=== PATIENT | male | born 1965 | race Caucasian/White ===

== ENCOUNTER → 2017-06-29 | Day surgery (SDC) | payer OTHER ==
[2017-06-16 11:54] VITALS: Ht 170.2 cm; Wt 122.7 kg
--- NOTE | 2017-06-22 13:51 | PAT Medication Instructions ---
Service Date Jun 22, 2017. Current Home Medication List Amphetamine-Dextroamphetamine (Amphetamine/Dextroampheta), 20 MG PO QAM Amphetamine-Dextroamphetamine 20MG (Adderall 20MG), 0.5-1 TAB PO QPM Azelastine Hcl (Astelin Nasal Marion), 1-2 SPRAYS NA QAM PRN for Seasonal Allergies Citalopram Hydrobromide (Celexa), 40 MG PO QAM Clonazepam (Klonopin), 3 TAB PO HS Fexofenadine Hcl (Leela Allergy), 1 TAB PO QAM Mometasone Furoate (Nasal) (Mometasone Furoate), 1 SPRAY SANIYA QAM PRN for Seasonal Allergies Medication Instructions For Your Scheduled Surgery - Hold the following medications the morning of surgery: Amphetamine-Dextroamphetamine (Amphetamine/Dextroampheta), 20 MG PO QAM Fexofenadine Hcl (Leela Allergy), 1 TAB PO QAM Azelastine Hcl (Astelin Nasal Marion), 1-2 SPRAYS NA QAM PRN for Seasonal Allergies Mometasone Furoate (Nasal) (Nasonex), 1 SPRAY SANIYA QAM PRN for Seasonal Allergies - Take the following medications the morning of surgery with a sip of water OTHERWISE NOTHING TO EAT OR DRINK AFTER MIDNIGHT: Citalopram Hydrobromide (Celexa), 40 MG PO QAM Azelastine Hcl (Astelin Nasal Marion), 1-2 SPRAYS NA QAM PRN for Seasonal Allergies Mometasone Furoate (Nasal) (Mometasone Furoate), 1 SPRAY SANIYA QAM PRN for Seasonal Allergies - Take the following medications as scheduled the night before surgery: Amphetamine-Dextroamphetamine 20MG (Adderall 20MG), 0.5-1 TAB PO QPM Clonazepam (Klonopin), 3 TAB PO HS If you have any questions please call us at [phone] or [phone] or [phone]
[2017-06-22 14:44] LABS: BASO ABS # 0.08 K/uL (0-0.2); EOS % 2.3 %; EOS ABS # 0.18 K/uL (0-0.5); HEMATOCRIT 44.7 % (42-52); HEMOGLOBIN 15.2 g/dL (14.0-18.0); IG# 0.02 K/uL (0.00-0.02); LYMPH % 33.7 %; LYMPH ABS # 2.65 K/uL (1.2-3.4); MEAN CELL VOLUME 87.6 fL (80-100); MEAN CORPUSCULAR HEMOGLOBIN 29.8 pg (25-34); MEAN PLATELET VOLUME 10.8 fL (7.4-10.4); MONO % 6.4 %; NEUT % 56.3 %; NEUT ABS # 4.44 K/uL (1.4-6.5); PLATELET COUNT 263 K/uL (130-400); RED CELL DISTRIBUTION WIDTH CV 14.4 % (11.5-14.5); RED CELL DISTRIBUTION WIDTH SD 46.3 fL (36.4-46.3); WHITE BLOOD COUNT 7.87 K/uL (4.8-10.8)
[2017-06-22 14:52] LABS: CALCIUM 9.1 mg/dl (8.5-10.1); CREATININE 1.01 mg/dl (0.60-1.40); POTASSIUM 4.4 mmol/L (3.5-5.1)
[~2017-06-29] VITALS: Ht 170.2 cm; Wt 122.7 kg
[~2017-06-29] MED LIST: AMPH10CA9 PO; AMPH20TA2 PO; ASTN; ATROPINE SULFATE 0.1 MG/ML 5ML SYR IV PRN; BUPIVACAINE/EPINEPHRINE 0.25% 1:200,000 30 ML VIAL ONE; CEFAZOLIN 3000MG IV PUSH 15 ML IV SCH; CITA40TA12 PO; CLON1TAB3 PO; DEXAMETHASONE SOD INJ 4 MG/ML VIAL ONE; EpHEDrine SULFATE INJ 50 MG/ML AMP IV PRN; EpHEDrine SULFATE INJ 50 MG/ML AMP ONE; EpINEphrine INJ 1MG/ML AMP 1 MG/ML AMP ONE; FENTANYL CITRATE INJ 50 MCG/1 ML 2 ML VIAL IV PRN; FENTANYL CITRATE INJ 50 MCG/1 ML 2 ML VIAL ONE; FEXO1TAB49 PO; GLYCOPYRROLATE INJ 0.2 MG/ML VIAL ONE; LACTATED RINGER'S 1000ML 1,000 ML IV SCH; LIDOCAINE HCL 2% 2 ML VIAL (20MG/ML) ONE; MIDAZOLAM HCL 1 MG/ML 2ML VIAL ONE; MOME6000 NAE; NEOSTIGMINE METHYLSULFATE 5 MG/5 ML SYR ONE; ONDANSETRON INJ 2 MG/ML 2 ML VIAL IV PRN; ONDANSETRON INJ 2 MG/ML 2 ML VIAL ONE; OXYC-57 PO; OXYCODONE/ACETAMINOPHEN 5-325 TAB PO PRN; PHENYLEPHRINE HCL INJ 10 MG/ML VIAL ONE; PROPOFOL IV EMULSION 10 MG/ML 20 ML VIAL IV ONE; ROCURONIUM BROMIDE 10 MG/ML 5 ML VIAL IV ONE; ROPIVACAINE 0.5% 5 MG/ML 30 ML VIAL ONE; SODIUM CHLORIDE 0.9% 1000ML 1,000 ML IV SCH; SUCCINYLCHOLINE CHLORIDE 20 MG/ML 10 ML VIAL IV ONE
--- NOTE | 2017-06-29 06:47 | History & Physical Bridge - SC ---
H&P Re-Evaluation Bridge Note: I have examined the patient, reviewed the History & Physical and in the interval since the performance of the History & Physical I have noted the following changes of clinical significance: No changes noted
--- NOTE | 2017-06-29 08:43 | [facility] Post Operative Brief Note ---
Immediate Operative Summary Operative Date Jun 29, 2017. Pre-Operative Diagnosis Left Shoulder Pain and Impingement Post-Operative Diagnosis Same Procedure(s) Performed Left Shoulder Arthroscopy With Subacromial Decompression Surgeon Dr. Bob Bernard Border Guard Surgeon(s) Ed Mason PA-C Estimated Blood Loss 5 ml Findings Consistent with Post-Op Diagnosis Specimens None Anesthesia Type General Regional Complication(s) none Disposition Disposition: Recovery Room / PACU
--- NOTE | 2017-06-29 08:51 | Discharge Instructions-SurgCtr ---
Discharge Instructions Date of Service Jun 29, 2017. Visit Reason for Visit: Left Shoulder Impingement, Pain Discharge Discharge Diagnosis / Problem: SAME ABOVE Discharge Goals Goal(s): Decrease discomfort, Improve function Activity Recommendations Activity Limitations: as noted below Lifting Limitations: until after follow-up appointment Shower/Bathe: tomorrow Anesthesia . Post Anesthesia Instructions: If you have had General Anesthesia or IV Sedation: * Do not drive today. * Resume driving when surgeon permits. * Do not make important decisions or sign legal documents today. * Call surgeon for: 1. Temperature elevations greater than 101 degrees F. 2. Uncontrollable pain. 3. Excessive bleeding. 4. Persistent nausea and vomiting. 5. Medication intolerance (nausea, vomiting or rash). * For nausea and vomiting use only clear liquids such as: tea, soda, bouillon until nausea subsides, then gradually increase diet as tolerated. * If you have any concerns or questions, call your surgeon's office. If physician is unavailable and it is an emergency, call 911 or go to the nearest emergency room. . Instructions / Follow-Up Instructions / Follow-Up MEDICATIONS: * Resume previous medications unless instructed otherwise by your surgeon. * Always take pain medication on a full stomach or with food to avoid upset stomach. * Do not drink alcohol or drive while taking narcotics. * Ibuprofen or Tylenol may be taken if narcotic not needed. SPECIAL CARE INSTRUCTIONS: __ None _X_ Keep extremity elevated and iced x 48 hours; apply ice 20-30 minutes 8-10 times/day. May remove at night. _X_ Sling (WEAR FOR COMFORT ONLY) __24 hrs/day __ Remove at night __ Shoulder Immobilizer __ 24 hrs/day __ Remove at night _X_ Dressing __ Maintain until seen in office, may shower with plastic over site _X_ Remove dressings in 24-48 hours and then may shower _X_ Cover incisions with band-aids after showering _X_ Do not remove steri-strips Call physician if chills or temperature rises above 102 degrees or pain unrelieved by prescribed pain medications at . . Diet Recommendations Home Diet: no limitations Fluid Restriction: None Procedures Procedures Performed: Left Shoulder Arthroscopy With Subacromial Decompression Pending Studies Studies pending at discharge: no Work Instructions Return To Work: after follow-up Lifting Limitations: NO LIFTING MORE THAN 5 POUNDS Medical Emergencies . Who to Call and When: Medical Emergencies: If at any time you feel your situation is an emergency, please call 911 immediately. . Non-Emergent Contact Non-Emergency issues call your: Primary Care Provider Call Non-Emergent contact if: you have a fever, temperature is above 101.5 . . "Provider Documentation" section prepared by Russell Mason. .
--- NOTE | 2017-06-29 09:01 | OPERATIVE REPORT ---
DATE OF OPERATION: 06/29/2017 PREOPERATIVE DIAGNOSES: Severe external impingement and biceps tendinopathy of the left shoulder. POSTOPERATIVE DIAGNOSIS: Same. PROCEDURES: Left shoulder diagnostic arthroscopy with limited debridement, acromioplasty, open subpectoral biceps tenodesis and distal clavicle resection to include coplanning the undersurface of the clavicle. SURGEON: Dr. Akshat Bernard. WHITE SUGAR SUPERVISOR: Александр Mason PA-C, whose assistance was necessary for positioning the arm and helping with instrumentation. ANESTHESIA: General with a left interscalene nerve block. COMPLICATIONS: None. CONDITION: Stable to PACU. INDICATIONS: Eren is a pleasant 52-year-old male who underwent a right shoulder arthroscopy 12 years ago for decompression. Unfortunately, he was having similar symptoms in his left shoulder. MRI and clinical examination were diagnostic for severe external impingement and biceps tendinopathy. After failing conservative treatment, he elected to undergo arthroscopy. DESCRIPTION OF PROCEDURE: On 06/29/2017, he arrived at [facility] for the above procedure. He was seen in the preoperative holding area and the operative extremity was identified and signed. He was given preoperative antibiotics and a left interscalene nerve block. He was taken back to the operating room, laid on the table in supine position and put under general anesthesia. He was then put into the beachchair position. The left shoulder was prepped and draped in sterile fashion. Time-out was done and the patient's operative extremity was properly identified. A scope was introduced into the posterior portal. Diagnostic arthroscopy showed no cartilage damage to the humeral head or the glenoid. There was significant fraying of the anterior and superior labrum. The biceps tendon was very frayed. The supraspinatus, infraspinatus, teres minor and subscapularis were all checked and intact. An anterior portal was made. A shaver was used to do a limited debridement of the intraarticular structures and the biceps tendon was arthroscopically tenotomized for later tenodesis. The scope was then put into the subacromial space. A lateral portal was made. A shaver was used to do a complete subacromial and subdeltoid bursectomy. An ablator was used to tease the coracoacromial ligament off the undersurface of the acromion and a 5-0 vivek was used to complete an acromioplasty of a Bigliani type 3 acromion. A shaver was used to remove any excess debris. The bursal side of the rotator cuff was examined extensively without evidence of tear. There was a very large osteophyte off the inferior aspect of the clavicle. It was impinging upon the supraspinatus outlet. A bur was used to remove the osteophytes open up the supraspinatus outlet. This completed the distal clavicle resection. Multiple pictures were taken. Arthroscopic instruments were then removed from the shoulder. Attention was turned to an open biceps tenodesis. A small incision was made over the inferior border of the pec major. Dissection was taken down through the fascia and the long head of the biceps tendon was delivered out of the wound. A 6.5-mm hole was drilled in the bicipital groove. The biceps tendon was then whipstitched with an Arthrex FiberLoop and an Arthrex biceps button was placed on the tails. The biceps button was then placed through the 6.5-mm hole and out the posterior cortex and flipped and a tension slide technique was used to deliver the tendon into the 6.5-mm hole. This gave good fixation. The tails were then tied with a knot pusher. The wound was then irrigated and closed with 3-0 Vicryl and running 3-0 Monocryl. Steri-strips were placed. Portal sites were closed with 3-0 nylon. He was then placed in a soft dressing and a regular arm sling. He was then extubated, transferred to a [facility] and taken to the postanesthesia care unit in stable condition. He tolerated the procedure well. I attest to the content of the Intraoperative Record and any orders documented therein. Any exception s are noted below.
[2017-06-29 09:44] VITALS: TEMP 36.4
--- NOTE | 2017-06-29 10:38 | Anesthesia Progress Nt - [facility] ---
Anesthesia Post Op Note Date & Time Jun 29, 2017 at 10:37 Vital Signs Pain Intensity: 5 Vital Signs Past 12 Hours Date Time Temp Pulse Resp B/P (MAP) Pulse Ox O2 Delivery O2 Flow Rate FiO2 06/29/17 09:44 36.4 72 20 126/80 (95) 96 Room Air 06/29/17 09:34 36.4 72 16 135/80 96 Room Air 06/29/17 09:27 77 16 06/29/17 09:27 76 16 95 06/29/17 09:26 137/94 06/29/17 09:22 82 22 95 06/29/17 09:22 82 22 06/29/17 09:21 149/89 06/29/17 09:17 71 15 99 06/29/17 09:17 71 15 06/29/17 09:16 147/84 06/29/17 09:12 71 13 06/29/17 09:12 72 13 97 06/29/17 09:11 145/99 06/29/17 09:07 73 16 06/29/17 09:07 73 16 98 06/29/17 09:06 149/94 06/29/17 09:04 73 13 98 06/29/17 09:04 73 13 06/29/17 09:01 149/105 06/29/17 08:59 75 12 06/29/17 08:59 75 12 97 06/29/17 08:56 138/101 06/29/17 08:54 76 18 06/29/17 08:54 76 18 97 06/29/17 08:52 153/103 06/29/17 08:49 36.4 81 16 150/103 (111) 97 Room Air 6 Mask 06/29/17 07:34 61 31 100 06/29/17 07:34 61 06/29/17 07:33 59 10 100 06/29/17 07:33 61 06/29/17 07:32 61 20 100 06/29/17 07:32 63 06/29/17 07:31 140/97 06/29/17 07:29 59 15 100 06/29/17 07:29 60 06/29/17 07:28 58 06/29/17 07:28 58 18 100 06/29/17 07:26 139/94 06/29/17 07:23 61 06/29/17 07:23 61 13 100 1/25/18 07:22 62 10 100 06/29/17 07:22 62 06/29/17 07:21 138/97 06/29/17 07:20 62 26 100 06/29/17 07:20 61 06/29/17 07:19 63 33 99 06/29/17 07:19 63 06/29/17 07:18 64 25 100 06/29/17 07:18 65 06/29/17 07:17 60 06/29/17 07:17 59 9 100 06/29/17 07:16 165/111 06/29/17 07:12 62 06/29/17 07:12 61 15 99 06/29/17 07:11 147/98 06/29/17 07:07 62 20 99 06/29/17 07:07 62 06/29/17 07:06 143/92 06/29/17 06:34 36.4 74 22 150/97 (114) 97 Room Air Notes Mental Status: alert / awake / arousable, participated in evaluation Pt Amnestic to Procedure: Yes Nausea / Vomiting: adequately controlled Pain: adequately controlled Airway Patency, RR, SpO2: stable & adequate BP & HR: stable & adequate Hydration State: stable & adequate Anesthetic Complications: no major complications apparent
[2017-06-29 10:41] VITALS: BP 151/93; PULSE 68; O2SAT 97
== END | disposition home or self-care (01) ==
LOC: X.SURG 06:23
PROVIDERS: ATTEND Orthopaedic Surgery
DX: M75.42 Impingement syndrome of left shoulder (principal); F32.9 Major depressive disorder, single episode, unspecified

== ENCOUNTER → 2017-12-26 | Outpatient (CLI) | payer OTHER ==
[~2017-12-26] VITALS: Ht 170.2 cm; Wt 114.0 kg
[~2017-12-26] MED LIST changes: -ATROPINE SULFATE 0.1 MG/ML 5ML SYR IV PRN; -BUPIVACAINE/EPINEPHRINE 0.25% 1:200,000 30 ML VIAL ONE; -CEFAZOLIN 3000MG IV PUSH 15 ML IV SCH; -CLON1TAB3 PO; +CLON1TAB5 PO; -DEXAMETHASONE SOD INJ 4 MG/ML VIAL ONE; -EpHEDrine SULFATE INJ 50 MG/ML AMP IV PRN; -EpHEDrine SULFATE INJ 50 MG/ML AMP ONE; -EpINEphrine INJ 1MG/ML AMP 1 MG/ML AMP ONE; -FENTANYL CITRATE INJ 50 MCG/1 ML 2 ML VIAL IV PRN; -FENTANYL CITRATE INJ 50 MCG/1 ML 2 ML VIAL ONE; -GLYCOPYRROLATE INJ 0.2 MG/ML VIAL ONE; -LACTATED RINGER'S 1000ML 1,000 ML IV SCH; -LIDOCAINE HCL 2% 2 ML VIAL (20MG/ML) ONE; -MIDAZOLAM HCL 1 MG/ML 2ML VIAL ONE; -NEOSTIGMINE METHYLSULFATE 5 MG/5 ML SYR ONE; -ONDANSETRON INJ 2 MG/ML 2 ML VIAL IV PRN; -ONDANSETRON INJ 2 MG/ML 2 ML VIAL ONE; -OXYCODONE/ACETAMINOPHEN 5-325 TAB PO PRN; -PHENYLEPHRINE HCL INJ 10 MG/ML VIAL ONE; -PROPOFOL IV EMULSION 10 MG/ML 20 ML VIAL IV ONE; -ROCURONIUM BROMIDE 10 MG/ML 5 ML VIAL IV ONE; -ROPIVACAINE 0.5% 5 MG/ML 30 ML VIAL ONE; -SODIUM CHLORIDE 0.9% 1000ML 1,000 ML IV SCH; -SUCCINYLCHOLINE CHLORIDE 20 MG/ML 10 ML VIAL IV ONE
[2017-12-26 15:30] VITALS: BP 157/101; PULSE 75; Ht 170.2 cm; Wt 114.0 kg
== END | disposition home or self-care (01) ==
LOC: C.NEUR 14:55
PROVIDERS: ATTEND Internal Medicine Pulmonary Disease
DX: R06.83 Snoring (principal); R53.83 Other fatigue; R40.0 Somnolence; J34.2 Deviated nasal septum; F51.4 Sleep terrors [night terrors]

== ENCOUNTER → 2018-01-15 | Outpatient (CLI) | payer OTHER ==
[~2018-01-15] MED LIST changes: +CLON1TAB10 PO; -CLON1TAB5 PO; -OXYC-57 PO
--- NOTE | 2018-01-16 06:33 | PAP/PSG TECHNICIAN REPORT ---
[facility] [employer] Analyst Polysomnogram Report Study name: None Report date: 01/16/2018 Study date: 01/15/2018 Referring Physician: Cooper Barbour M.D. Name: IRENE ALEXANDRA Reyes Interpreting Physician: Cooper Barbour M.D. Date of : 1965 [employer] Analyst: Millicent Swanson RPSGT. Sex: Male Age: 52 Study Type: PSG Weight: 251 lbs 19+ in Height: 52 years, Height 5' 7" Neck Circum: BMI: 39.31 Medications: FABI 180 MG, AMPHETAMINE-DEXTROAMPHETAMINE 20 MG, AZELASTINE 0.15% NASAL SOLN, CITALOPRAM 40 MG, CLONAZEPAM 1 MG, MOMETASONE 50 MCG/ACT Patient History 52 yr-old male here for a baseline study. He has a history of sleep terrors, movements during sleep, excessive daytime sleepiness, and has a need for naps. His [place] scale is 9. The test was started on room air. Additional EMG leads were added to his arms for the study. ETCO2 testing was not utilized during this study. Room 3 Parameters Monitored NPSG: E1-M2, E2-M1, Fp1-M2, Fp2-M1, F3-M2, F4-M2, F4-M1, C3-M2, C4-M2, C4-M1, O1-M2, O2-M2, O2-M1, T3-M2, T4-M1, P3-M2, P4-M1, CHIN1, CHIN2, HR, EKG, Legs, PFLOW, SNOR, FLOW, CFLOW, Tidal Volume, THOR, ABDO, SpO2, PLTH, CPRESS, ETCO2 Wave, ETCO2, pH Sleep Architecture Sleep Stages Time at Lights Off 10:06:48 PM STAGES Time (min.) TST (%) Time at Lights On 5:24:48 AM Wake 168.5 -- Total Recording Time (TRT) 438.00 min. N1 85.5 32 Total Sleep Period (TSP) 365.5 min. N2 161.5 60 Total Sleep Time (TST) 269.5min. N3 0.0 0 Awake Time 168.5 min. REM 22.5 8 Wake after Sleep Onset 96.0 min. Sleep Efficiency (SE) 62 % Sleep Onset Latency (JAIME) 72.5 min. Number of Stage 1 Shifts None Awakenings 27 Stage Changes 110 Number of REM periods 1 REM 22.5 8 REM Latency 212.5 min. NREM 247.0 92 Body Position Analysis Supine Right Left Side Prone Vertical Total Sleep Time (min.) 107.7 103.1 104.9 208.00 0.0 0.0 Total Sleep Time (%) 23% 38% 39% 77 0% N/A% Total Sleep Time REM (min.) 22.5 0.0 0.0 None 0.0 0.0 Total Sleep Time NREM (min.) 39.0 103.1 104.9 None 0.0 0.0 Intermittent Wake (min.) 46.2 46.4 75.9 None 0.0 0.0 Total Sleep Period (%) 22% None None None None None Arousals Myoclonus (PLM) * Events Count Index Events Count Index Spontaneous 47 10 Events Awake (PLMW) 169 60.2 Respiratory 16 4.2 Events Asleep w/ Arousal (PLMA) 26 5.8 PLM 25 6 Events Asleep w/o Arousal (PLMS) 217 48.3 Snoring 14 3 Total Asleep 243 54.1 Total 101 22 Total 412 56 Respiratory Analysis * CA OA MA CH H RERA Total Count 0 0 0 0 69 1 69 Index 0.0 0.0 0.0 0 15.4 0 15.6 Mean Duration 0.0 0.0 0.0 0.00 16.1 17.1 16.1 Longest Duration 0.0 0.0 0.0 0.00 0.0 17.1 28.8 Respiratory Event Summary Total Supine ~Supine Right Left Prone REM NREM Apneas Count 0 0 0 0 0 N/A 0 0 Index 0.0 0 0 0.0 0.0 N/A 0 0 Hypopneas (4% Desat) Count 69 25 44 21 23 N/A 6 63 Index 15.4 24.4 13 12.2 13.2 N/A 16.0 15.3 Apneas & All Hypopneas Count 69 25 44 21 23 N/A 6 63 Index 15.4 24 13 12 13 N/A 16.0 15.3 Respiratory Events (Inspector Fibrous Wallboard+All Hyp+RERA) Count 69 26 44 21 23 N/A 6 63 Index 15.6 25 13 12.2 13.2 N/A 16.0 15.5 Respiratory Related Arousal Count 16 26 9 2 7 N/A 0 19 Index 4.2 10 3 1 4 N/A 0 5 Snoring Analysis Supine Right Left Prone REM NREM Total Snore duration 28.8 min Snores count 236 577 674 N/A 90 1,397 1,487 Snore mean duration 1.2 Sec Snores index 230 336 386 N/A 240.0 339.4 331.1 TST with snoring (%) 10.7% Desaturation Event Summary: Minimum %SpO2 Event Count Mean/Min/Max Duration(sec.) Desaturation Index % Time In Bed > 90 105 19.5 / 6.8 / 60.0 15.3 96.9 86 - 90 3 12.0 / 8.8 / 17.5 13.6 3.1 81 - 85 0 N/A 0.0 0.0 76 - 80 0 N/A 0.0 0.0 71 - 75 0 N/A 0.0 0.0 66 - 70 0 N/A 0.0 0.0 61 - 65 0 N/A 0.0 0.0 56 - 60 0 N/A 0.0 0.0 51 - 55 0 N/A 0.0 0.0 < 50 0 N/A 0.0 0.0 Total REM NREM Awake <50% 0.0 min. 0.0 min. 0.0 min. 0.0 min. 51 - 60% 0.0 min. 0.0 min. 0.0 min. 0.0 min. 61 - 70% 0.0 min. 0.0 min. 0.0 min. 0.0 min. 71 - 80% 0.0 min. 0.0 min. 0.0 min. 0.0 min. 81 - 90% 13.3 min. 1.1 min. 10.1 min. 2.1 min. 91 - 100% 412.5 min. 21.4 min. 236.9 min. 154.2 min. Average 93 93 93 94 Minimum SpO2 86 87 86 87 Desaturation Event Index 14.4 24.0 18.9 6.8 # Desat. Events below 89% 18 1 15 2 Time(%) with Saturation below 89% 0.6 0.0 0.5 0.1 Time(min.) with Saturation below 89% 2.5 0.2 2.0 0.2 Heart Rate Analysis Min (bpm) Max (bpm) Average (bpm) Awake 47 96 67 NREM 47 87 61 REM 43 63 55 Overall 43 87 60 Supplemental O2 Values Minimum O2 level: None Value Start Time End Time [employer] Analyst Comments Mr. Sales slept in the right, left, and supine positions. No cardiac arrhythmias were noted. PLMs were noted. A few episodes of bruxism were noted. Snoring was noted and scored as a 3 on a scale of 1 through 5. (0=no snoring, 5=snoring loud enough to be heard through a closed door or down the martino way). He awoke to use the restroom two times during the night. Mr. Sales stated that he slept poorly. The final report will be interpreted and signed by a sleep physician. The completed physician report will then be placed in the patient medical record. Therapy (cm H2O) 0 TIB (min.) 438.0 TST (min.) 269.5 Sleep Onset (min.) 72.5 REM Onset From Sleep (min.) 212.5 Sleep Efficiency % 62 Wakefulness (%) 38 Wakefulness (min.) 168.5 NREM 1 (%) 32 NREM 1 (min.) 85.5 NREM 2 (%) 60 NREM 2 (min.) 161.5 NREM 3 (%) 0 NREM 3 (min.) 0.0 REM (%) 8 REM (min.) 22.5 # Arousals 101 Arousal Index 22 # Snore 1,487 Snore Index 331.1 AHI 15.4 AHI Supine 24 AHI Non-Supine 13 NREM AHI 15.3 REM AHI 16.0 RDI 15.6 # Obstructive Apnea 0 # Central Apnea 0 # Mixed Apnea 0 # Hypopneas 69 RERAs 1 Total Respiratory Events 71 Time Below SpO2 89% (min.) 2.2 Mean NREM SpO2 (%) 93 Mean REM SpO2 (%) 93 Mean Sleep SpO2 (%) 93 Min NREM SpO2 (%) 86 Min REM SpO2 (%) 87 Position Supine (min.) 107.7 Position Non-supine (min.) 208.0 LM Index Sleep 54.1 LM Index NREM 49.3 LM Index REM 106.7 Mean Heart Rate (bpm) 60 Min Heart Rate (bpm) 43
--- NOTE | 2018-01-20 17:06 | POLYSOMNOGRAPH REPORT ---
CLINICAL DATA: A 52-year-old male with BMI of 39.[address] Myers and myself for snoring, fatigue, daytime sleepiness, and history of sleep terrors. SLEEP ARCHITECTURE: Total sleep period was 65.5 minutes, total sleep time was 269.5 minutes divided between 247 minutes of non-REM sleep and 22.5 minutes of REM sleep. Sleep onset latency was delayed at 72.5 minutes. REM latency was delayed at 212.5 minutes. Sleep efficiency was reduced to 65%. Wake after sleep onset was 93 minutes. Sleep consisted of stage N1 32%, stage N2 is 60%, and REM 8%. AROUSAL DATA: 101 arousal recorded for an index of 22 per hour. PLM DATA: Severely elevated limb movements during sleep were noted during sleep. There were 243 limb movements during sleep were noted for an index of 54 with arousal index of 5.8 per hour. RESPIRATORY DATA: [id number] sleep apnea/hypopnea is documented. The AHI was 15.4. The RDI was 15.6. There were 69 hypopneic episodes with a mean duration of 16.1 seconds. There was 1 RERA, 17.1 seconds in duration. OXIMETRY DATA: Transient hypoxemia was seen. Oxygen brenton was 86% during non-REM sleep. Mean saturation was 93%. Time below 89% was 2.5 minutes. EKG: Heart rate ranged from 43-87 beats per minute. No arrhythmias were noted. FILLER BLOCK INSERTER REMOVER'S COMMENTS: The patient slept in right, left, and supine position. Several episodes of bruxism were noted. Snoring was moderate rated 3 on a scale of 1-5. IMPRESSION: 1. [id number] sleep apnea/hypopnea with an AHI of 15.4 and RDR of 15.6. 2. Severe periodic limb movement disorder. 3. Mild bruxism. RECOMMENDATIONS: The patient may benefit from repeat sleep study with CPAP. use of auto CPAP, or use of an oral appliance. Clinical correlation is needed. MAURICIO
== END | disposition home or self-care (01) ==
LOC: C.NEUR 21:00
PROVIDERS: ATTEND Internal Medicine Pulmonary Disease
DX: F51.4 Sleep terrors [night terrors] (principal); G47.33 Obstructive sleep apnea (adult) (pediatric); G47.61 Periodic limb movement disorder; G47.63 Sleep related bruxism

== ENCOUNTER 2020-10-02 15:01 | Inpatient (IN) ==
[2020-10-02 16:29] LABS: Appearance Urine Clear (Clear); Bilirubin Urine Negative (Negative); Blood Urine Negative (Negative); Color Urine Yellow; Glucose Urine UA Negative (Negative); Ketones Urine Negative (Negative); Leukocyte Esterase Urine Negative (Negative); Nitrite Urine Negative (Negative); Protein Urine Negative (Negative); Specific Gravity Urine 1.005 (1.000-1.030); Urobilinogen Urine Negative (Negative); pH Urine 6.5 (4.5-7.5)
[2020-10-02 16:53] LABS: Amphetamines+Metham, Urine Neg (Neg); Barbiturates, Urine Neg (Neg); Benzodiazepine, Urine Neg (Neg); Cocaine, Urine Neg (Neg); MDMA (Ecstacy), Urine Neg (Neg); Methadone, Urine Neg (Neg); Opiate, Urine Neg (Neg); Phencyclidine, Urine Neg (Neg)
[2020-10-02 16:59] LABS: Basophils # (auto) 0.06 K/uL (0-0.2); Basophils % (auto) 0.6 %; Eosinophils # (auto) 0.07 K/uL (0-0.5); Eosinophils % (auto) 0.7 %; Hematocrit (blood only) 47.2 % (42-52); Immature Granulocytes # (auto) 0.01 K/uL (0.00-0.02); Immature Granulocytes % (auto) 0.1 %; Lymphocytes # (auto) 1.76 K/uL (1.2-3.4); Lymphocytes % (auto) 18.5 %; Mean Corpuscular Hgb Conc 33.9 g/dL (32-36); Mean Corpuscular Volume 88.4 fL (80-100); Monocytes # (auto) 0.62 K/uL (0.11-0.59); Monocytes % (auto) 6.5 %; Neutrophils # (auto) 6.98 K/uL (1.4-6.5); Neutrophils % (auto) 73.6 %; Platelet Count 313 K/uL (130-400); RDW Coefficient of Variation 13.8 % (11.5-14.5); RDW Standard Deviation 44.8 fL (36.4-46.3); Red Blood Count 5.34 M/uL (4.7-6.1)
--- NOTE | 2020-10-02 17:06 | Emergency Department Note ---
History of Present Illness General Chief complaint: Mental Health Evaluation Stated complaint: MENTAL HEALTH EVAL Time Seen by Provider: 10/02/20 16:28 Source: patient Mode of arrival: ambulatory Limitations: no limitations History of Present Illness Provider complaint: Depression Maximum Pain Intensity: 3 This is a 55-year-old male who presents to the ED with a chief complaint of depression. The patient is a 201 commitment. The patient went to crisis to talk to them about his issues. He was told to come here for medical evaluation. The patient states that he lives alone. He has a history of ADHD. He states that over the past couple of months he has been feeling increasingly depressed because he is out of work. 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 He states that his future looks bleak. He has some bad knees and a bad shoulder and he is not able to find work. He states that he went on a strenuous walk recently with the hopes that it would cause him to have a medical emergency and he would . Denies any other complaints at this time. Home Medications Medication Instructions Recorded Confirmed Type azelastine 205.5 mcg (0.15 %) 2 spray INTNAS BID #30 ml 05/21/20 10/02/20 Rx nasal spray dextroamphetamine-amphetamine 20 40 mg PO DAILY tab 09/30/20 10/02/20 History mg tablet clonazepam 1 mg tablet 3 mg PO .COMPLEX #90 tab 10/02/20 10/02/20 Rx diphenhydramine HCl [Benadryl] 25 mg PO Q6H PRN 10/02/20 10/02/20 History famotidine 20 mg PO DAILY 10/02/20 10/02/20 History loratadine 10 mg PO DAILY 10/02/20 10/02/20 History oxymetazoline [Afrin drp INTRANASAL 10/02/20 History (oxymetazoline)] Allergies Allergy/AdvReac Type Severity Reaction Status Date / Time hydrocodone AdvReac Intermediate BECOMES Verified 06/29/17 07:16 MANIC naproxen AdvReac Mild RECTAL Verified 06/29/17 07:16 BLEEDING WITH EXTENDED USE Aleve CAPS Allergy Uncoded 01/04/19 15:36 Past Med/Surg History Medical History Cluster headache Medial meniscus tear Surgical History H/O arthroscopic knee surgery History of rotator cuff surgery Family History Mother Lymphoma Father Prostate cancer Grandmother (Maternal) Hypertension Other Diabetes Social History Smoking Status: Never smoker Preferred Language: Turkish marital status: Current Living Situation: Alone Feels Safe at Home: Yes Review of Systems A total of 10 systems reviewed and were otherwise negative Physical Exam Vital Signs Vital Signs - 24 hr 10/02/20 15:35 10/02/20 18:55 Pulse Rate 79 Respiratory Rate 20 Respiratory Effort / Characteristics Non-Labored Spontaneous Respiratory Depth Normal Respiratory Pattern Regular Blood Pressure 154/96 H Blood Pressure [Right Arm] 154/89 H Blood Pressure Mean 115 Blood Pressure Mean [Right Arm] 110 Pulse Oximetry 100 Oxygen Delivery Method Room Air Sepsis Recent Fever Within 48 Hours No Sepsis New/Unexplained Change in Mental Status No Sepsis Action Taken by Nursing No Action Required CONSTITUTIONAL/VITAL SIGNS: Reviewed / noted above. GENERAL: Non-toxic in appearance. INTEGUMENTARY: Warm, dry, and [place]. HEAD: Normocephalic. EYES: without scleral icterus or trauma. ENT/OROPHARYNX: clear and moist. LYMPHADENOPATHY/NECK: Is supple without lymphadenopathy or meningismus. RESPIRATORY: Lungs clear and equal. CARDIOVASCULAR: Regular rate and rhythm. GI/ABDOMEN: Soft and nontender. No organomegaly or pulsatile mass. No rebound or guarding. Normal bowel sounds. EXTREMITIES: Warm and well perfused. BACK: No CVA tenderness. NEUROLOGICAL: Intact without focal deficits. PSYCHIATRIC: Depressed affect. MUSCULOSKELETAL: Normally developed with good muscle tone. TRIAGE NURSING DOCUMENTATION REVIEWED. Medical Decision Making Differential Diagnosis Differential includes toxic ingestions, self-mutilation, suicidal ideation, suicide attempt, depression. Medical Records Attestation: I reviewed the patient's medical records. Home Medications Current Medication List: was personally reviewed by me Laboratory Data Attestation: I reviewed the patient's lab results. Result diagrams: 10/02/20 16:23 10/02/20 16:23 Lab Results 10/02/20 10/02/20 10/02/20 Range/Units 15:49 15:49 16:23 WBC 9.50 (4.8-10.8) K/uL RBC 5.34 (4.7-6.1) M/uL Hgb 16.0 (14.0-18.0) g/dL Hct 47.2 (42-52) % MCV 88.4 (80-100) fL MCH 30.0 (25-34) pg MCHC 33.9 (32-36) g/dL RDW Std Deviation 44.8 (36.4-46.3) fL RDW Coeff of Peter 13.8 (11.5-14.5) % Plt Count 313 (130-400) K/uL MPV 11.0 H (7.4-10.4) fL Immature Gran % (Auto) 0.1 % Neut % (Auto) 73.6 % Lymph % (Auto) 18.5 % Bacon % (Auto) 6.5 % Eos % (Auto) 0.7 % Baso % (Auto) 0.6 % Neut # (Auto) 6.98 H (1.4-6.5) K/uL Lymph # (Auto) 1.76 (1.2-3.4) K/uL Bacon # (Auto) 0.62 H (0.11-0.59) K/uL Eos # (Auto) 0.07 (0-0.5) K/uL Baso # (Auto) 0.06 (0-0.2) K/uL Immature Gran # (Auto) 0.01 (0.00-0.02) K/uL Sodium (136-145) mmol/L Potassium (3.5-5.1) mmol/L Chloride (98-107) mmol/L Carbon Dioxide (21-32) mmol/L Anion Gap (3-11) BUN (7-18) mg/dl Creatinine (0.6-1.4) mg/dl Est Cr Clr Drug Dosing ml/min Est GFR ( Amer) Est GFR (Non-Af Amer) BUN/Creatinine Ratio (10-20) Glucose (70-99) mg/dl Calcium (8.5-10.1) mg/dl Total Bilirubin (0.2-1) mg/dl AST (15-37) U/L ALT (12-78) U/L Alkaline Phosphatase (45-117) U/L Total Protein (6.4-8.2) gm/dl Albumin (3.4-5.0) gm/dl Globulin (2.5-4.0) gm/dl Albumin/Globulin Ratio (0.9-2) TSH (0.300-4.500) uIu/ml Urine Color Yellow Urine Appearance Clear (Clear) Urine pH 6.5 (4.5-7.5) Ur Specific Cochran 1.005 (1.000-1.030) Urine Protein Negative (Negative) Urine Glucose (UA) Negative (Negative) Urine Ketones Negative (Negative) Urine Blood Negative (Negative) Urine Nitrite Negative (Negative) Urine Bilirubin Negative (Negative) Urine Urobilinogen Negative (Negative) Ur Leukocyte Esterase Negative (Negative) Salicylates (2.8-20) mg/dl Urine Opiates Screen Neg (Neg) Ur Methadone, Qual Neg (Neg) Acetaminophen (10-30) ug/ml Urine Barbiturates Neg (Neg) Ur Phencyclidine (PCP) Neg (Neg) U Amphetamin/Meth Scrn Neg (Neg) MDMA (Ecstasy) Screen Neg (Neg) U Benzodiazepines Scrn Neg (Neg) Ur Cocaine Metabolite Neg (Neg) U Marijuana (THC) Screen Neg (Neg) Ethyl Alcohol mg/dL (0-3) mg/dl COVID-19 Eval Order SARS-CoV-2 (PCR) (Negative) Influenza Type A (PCR) (Neg) Influenza Type B (PCR) (Neg) RSV (RT-PCR) (Neg) 10/02/20 10/02/20 10/02/20 Range/Units 16:23 16:23 16:23 WBC (4.8-10.8) K/uL RBC (4.7-6.1) M/uL Hgb (14.0-18.0) g/dL Hct (42-52) % MCV (80-100) fL MCH (25-34) pg MCHC (32-36) g/dL RDW Std Deviation (36.4-46.3) fL RDW Coeff of Peter (11.5-14.5) % Plt Count (130-400) K/uL MPV (7.4-10.4) fL Immature Gran % (Auto) % Neut % (Auto) % Lymph % (Auto) % Bacon % (Auto) % Eos % (Auto) % Baso % (Auto) % Neut # (Auto) (1.4-6.5) K/uL Lymph # (Auto) (1.2-3.4) K/uL Bacon # (Auto) (0.11-0.59) K/uL Eos # (Auto) (0-0.5) K/uL Baso # (Auto) (0-0.2) K/uL Immature Gran # (Auto) (0.00-0.02) K/uL Sodium 138 (136-145) mmol/L Potassium 4.2 (3.5-5.1) mmol/L Chloride 106 (98-107) mmol/L Carbon Dioxide 27 (21-32) mmol/L Anion Gap 5.0 (3-11) BUN 7 (7-18) mg/dl Creatinine 1.04 (0.6-1.4) mg/dl Est Cr Clr Drug Dosing 89.3 ml/min Est GFR ( Amer) 91.9 Est GFR (Non-Af Amer) 79.3 BUN/Creatinine Ratio 6.9 L (10-20) Glucose 85 (70-99) mg/dl Calcium 9.9 (8.5-10.1) mg/dl Total Bilirubin 0.8 (0.2-1) mg/dl AST 21 (15-37) U/L ALT 39 (12-78) U/L Alkaline Phosphatase 94 (45-117) U/L Total Protein 8.3 H (6.4-8.2) gm/dl Albumin 4.1 (3.4-5.0) gm/dl Globulin 4.2 H (2.5-4.0) gm/dl Albumin/Globulin Ratio 1.0 (0.9-2) TSH 1.030 (0.300-4.500) uIu/ml Urine Color Urine Appearance (Clear) Urine pH (4.5-7.5) Ur Specific Cochran (1.000-1.030) Urine Protein (Negative) Urine Glucose (UA) (Negative) Urine Ketones (Negative) Urine Blood (Negative) Urine Nitrite (Negative) Urine Bilirubin (Negative) Urine Urobilinogen (Negative) Ur Leukocyte Esterase (Negative) Salicylates < 1.7 L (2.8-20) mg/dl Urine Opiates Screen (Neg) Ur Methadone, Qual (Neg) Acetaminophen < 2 L (10-30) ug/ml Urine Barbiturates (Neg) Ur Phencyclidine (PCP) (Neg) U Amphetamin/Meth Scrn (Neg) MDMA (Ecstasy) Screen (Neg) U Benzodiazepines Scrn (Neg) Ur Cocaine Metabolite (Neg) U Marijuana (THC) Screen (Neg) Ethyl Alcohol mg/dL < 3.0 (0-3) mg/dl COVID-19 Eval Order SARS-CoV-2 (PCR) (Negative) Influenza Type A (PCR) (Neg) Influenza Type B (PCR) (Neg) RSV (RT-PCR) (Neg) 10/02/20 10/02/20 Range/Units 18:01 18:01 WBC (4.8-10.8) K/uL RBC (4.7-6.1) M/uL Hgb (14.0-18.0) g/dL Hct (42-52) % MCV (80-100) fL MCH (25-34) pg MCHC (32-36) g/dL RDW Std Deviation (36.4-46.3) fL RDW Coeff of Peter (11.5-14.5) % Plt Count (130-400) K/uL MPV (7.4-10.4) fL Immature Gran % (Auto) % Neut % (Auto) % Lymph % (Auto) % Bacon % (Auto) % Eos % (Auto) % Baso % (Auto) % Neut # (Auto) (1.4-6.5) K/uL Lymph # (Auto) (1.2-3.4) K/uL Bacon # (Auto) (0.11-0.59) K/uL Eos # (Auto) (0-0.5) K/uL Baso # (Auto) (0-0.2) K/uL Immature Gran # (Auto) (0.00-0.02) K/uL Sodium (136-145) mmol/L Potassium (3.5-5.1) mmol/L Chloride (98-107) mmol/L Carbon Dioxide (21-32) mmol/L Anion Gap (3-11) BUN (7-18) mg/dl Creatinine (0.6-1.4) mg/dl Est Cr Clr Drug Dosing ml/min Est GFR ( Amer) Est GFR (Non-Af Amer) BUN/Creatinine Ratio (10-20) Glucose (70-99) mg/dl Calcium (8.5-10.1) mg/dl Total Bilirubin (0.2-1) mg/dl AST (15-37) U/L ALT (12-78) U/L Alkaline Phosphatase (45-117) U/L Total Protein (6.4-8.2) gm/dl Albumin (3.4-5.0) gm/dl Globulin (2.5-4.0) gm/dl Albumin/Globulin Ratio (0.9-2) TSH (0.300-4.500) uIu/ml Urine Color Urine Appearance (Clear) Urine pH (4.5-7.5) Ur Specific Cochran (1.000-1.030) Urine Protein (Negative) Urine Glucose (UA) (Negative) Urine Ketones (Negative) Urine Blood (Negative) Urine Nitrite (Negative) Urine Bilirubin (Negative) Urine Urobilinogen (Negative) Ur Leukocyte Esterase (Negative) Salicylates (2.8-20) mg/dl Urine Opiates Screen (Neg) Ur Methadone, Qual (Neg) Acetaminophen (10-30) ug/ml Urine Barbiturates (Neg) Ur Phencyclidine (PCP) (Neg) U Amphetamin/Meth Scrn (Neg) MDMA (Ecstasy) Screen (Neg) U Benzodiazepines Scrn (Neg) Ur Cocaine Metabolite (Neg) U Marijuana (THC) Screen (Neg) Ethyl Alcohol mg/dL (0-3) mg/dl COVID-19 Eval Order [facility] at [facility] SARS-CoV-2 (PCR) NEGATIVE (Negative) Influenza Type A (PCR) Negative (Neg) Influenza Type B (PCR) Negative (Neg) RSV (RT-PCR) Negative (Neg) MDM Narrative Patient presents as above for depression. His vital signs are normal. His physical exam was unremarkable. Lab work as noted above. He is medically cleared. He was accepted at [facility]. Impression & Plan Depression Discharge Plan Visit Data Chief Complaint: Mental Health Evaluation Stated Complaint: MENTAL HEALTH EVAL ED Provider: Luis Felipe [place] Discharge Problem: Depression Patient Disposition: Transfer Behavioral Health Fac Forms Stand Alone Forms: My [facility], Suicide Prevention Resources Prescriptions Prescriptions: No Action azelastine 0.15 % (205.5 mcg) spray,non-aerosol 2 spray INTNAS BID Qty: 30 RF: 3 clonazepam 1 mg tablet 3 mg PO .COMPLEX Qty: 90 RF: 0 dextroamphetamine-amphetamine 20 mg tablet 40 mg PO DAILY RF: 0 famotidine 20 mg Tablet 20 mg PO DAILY RF: 0 diphenhydramine HCl [Benadryl] 25 mg Capsule 25 mg PO Q6H PRN (Reason: Allergy Symptoms) RF: 0 loratadine 10 mg Tablet 10 mg PO DAILY RF: 0 Afrin (oxymetazoline) 0.05 % Drops INTRANASAL RF: 0 Referrals Referrals: Pro,Dayron Zamora MD [Primary Care Provider] -
[2020-10-02 17:19] LABS: Albumin Level 4.1 gm/dl (3.4-5.0); BUN Creatinine Ratio 6.9 (10-20); Calcium 9.9 mg/dl (8.5-10.1); Creatinine Clr Calc Pharmacy 89.3 ml/min; Est GFR (African American) 91.9; Est GFR (Non-African American) 79.3; Potassium 4.2 mmol/L (3.5-5.1)
[2020-10-02 17:23] LABS: Acetaminophen < 2 ug/ml (10-30); Salicylate < 1.7 mg/dl (2.8-20)
[2020-10-02 17:30] LABS: Bilirubin,Total 0.8 mg/dl (0.2-1); Globulin 4.2 gm/dl (2.5-4.0); Thyroid Stimulating Hormone 1.03 uIu/ml (0.300-4.500); Total Protein 8.3 gm/dl (6.4-8.2)
[2020-10-02 18:50] LABS: Influenza A virus by PCR Negative (Neg); Influenza B virus by PCR Negative (Neg); RSV by PCR Negative (Neg); SARS CoV2 RNA(COVID-19) InHosp NEGATIVE (Negative)
[2020-10-02] MEDS ORDERED: SODIUM CHLORIDE 0.65% NA SOLN 45 ML (OCEAN) PRN (19:43)
[2020-10-02] MEDS ORDERED: hydrOXYzine HCl 25 MG TAB PO PRN ×2 (19:43)
[2020-10-02] MEDS ORDERED: MAGNESIUM HYDROXIDE SUSP 30 ML UDC PO PRN (19:43)
[2020-10-02] MEDS ORDERED: BISMUTH SUBSALICYLATE LIQD 236 ML PO PRN (19:43)
[2020-10-02] MEDS ORDERED: ALUMINUM/MAGNESIUM SUSP 30 ML UDC PO PRN (19:43)
[2020-10-02] MEDS: clonazePAM 1 MG TAB PO SCH (21:46)
[2020-10-02] MEDS: ACETAMINOPHEN 325 MG TAB PO PRN (21:46)
[2020-10-03] MEDS: ACETAMINOPHEN 325 MG TAB PO PRN (11:22)
[2020-10-03] MEDS: LORATADINE 10 MG TAB PO SCH (12:32)
[2020-10-03] MEDS: FAMOTIDINE 20 MG TAB PO SCH (12:32)
--- NOTE | 2020-10-03 15:30 | History & Physical ---
Date of Service October 03, 2020 Impression / Recommendations Impression 55 yo male with a history of at least 1 hypomanic episode (patient states medication induced), family history of bipolar illness and prior treatment for ADHD/depression/OCD (mainly obsessions around sinuses during mood episodes vs OCPD) presented a few days after a [place] gesture [place] 40 mg Adder[place]. 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 (1) Depression: The patient was admitted to the [facility] ([facility] mental [facility] unit) on q15 min checks (behavioral with suicide precautions) for safety. The patient will participate in group, recreational, and milieu therapies and will be offered additional individual and family sessions as clinically appropriate. Initially discussed trial of Wellbutrin or Prozac given presenting symptoms, prior to discussion with brother and hx of hypomanic episode. Patient wanted family to weigh in and this was unable to be addressed on first phone call as brother's flight was taking off. Reviewed with patient that I do not plan to resume Adderall immediately given involvement in his attempt and weight loss. Reviewed that current OCD symptoms seems more likely related to somatic preoccupation/OCPD and will consider mood stabilizer options. He cannot recall past meds. Depression Type: unspecified Qualified Code(s): F32.9 - Major depressive disorder, single episode, unspecified (2) Allergic rhinitis: order home meds, will not add steroids at this time due to mood issues. 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 (4) Weight loss, unintentional: Brother is requesting additional work up for weight loss, Head CT, LP. Reviewed that will order some additional labs and a likely a CXR given mold exposure reported but currently no acute indication for head imaging/neuro consult. Consider as outpatient. Inventory Assets Strengths: intelligent, local family Needs: resume outpatient services Risk Factors Assessment Male: Yes : Yes Do You Have Access To A Gun?: No Mental Health Diagnoses: Yes Substance Use Disorders: No Previous Attempt; Didn't Tell Anyone: Yes (this visit) Protective Factors Assessment : No Responsible for Young Children: No Employed: No Supportive Family: Yes Psychiatric History Identifying Data ALEXANDRA BONILLA is a 55-year-old M who currently lives in [place] alone, has a history of depression/OCD/ADHD, and was admitted on 10/02/20 19:43 on a 201 voluntary commitment for suicidal gesture. Chief Complaint "I didn't want to do anything obvious to off myself, I wouldn't want my son to have to deal with his father committing suicide". History of Present Illness Patient reports no consistent medication/psychiatric care since Dr. Fernandez retired 2 years ago. 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 "it's almost all gone". He went out into the [facility] on 09/28 for a long hike hoping that his heart would give out and his would appear natural from an [place]. He states that parts of his trailer have been in disarray (water leak) for a few weeks but that on that day he realized that there was moldy water in his air conditioning system and it triggered his allergies. "This was it." and doesn't think he can live there anymore. He notes doesn't relate well with his neighbor there but does help her out with driving her to appointments and feeding her cats for "seed money". He went to stay with his parents and they disagreed over the temperature of the house and so he decided to come to the hospital as still feeling depressed and hopeless. During the discussion his affect did not match content of what he was saying and he then admitted to taking 40 mg Adderall left over from a script in the fall with the hopes it would increase his heart rate. He also wants to restart Adderall as "at least it gives me some energy", lately doesn't enjoy anything but is also very money focussed. He feels more "shaky" or anxious during the day and admits that he was taking Klonopin 1 mg during the day for a bit (diverting from his hs med) but then his night terrors resumed. He reports not feeling very hungry at times but eating three meals a day and still losing 50 lbs. He is very sensitive to temperature and smells. He has not prior hx of Asperger's dx. Spoke with his brother at his request who hasn't had much involvment due to pandemic but worries about overall mental condition and related a history of a hypomanic episode in the like this in that he got very focussed on his sinuses and wasn't sleeping well. The patient attributes to side effect of oxycodone. Further review of chart shows a recent allergy visit where a solumedrol dose pack was order. The patient confirms he did not start it yet. Past Psychiatric History Current Psychiatric Diagnosis: Bipolar Disorder Outpatient Services: none, previously Dr. Fernandez since 2017 Previous Psych Admissions: unclear if incident with oxycodone was psych admit or medical for AMS Do You Have Access To A Gun?: No Describe Attempts in the Past: None Past Medication Trials: unclear, per records from pharmacy mainly Celexa 40 mg daily, Adderall 20 mg BID, Klonopin (currently ordered by Johny Hicks in sleep clinic) Allergies Allergy/AdvReac Type Severity Reaction Status Date / Time hydrocodone AdvReac Intermediate BECOMES Verified 06/29/17 07:16 MANIC naproxen AdvReac Mild RECTAL Verified 06/29/17 07:16 BLEEDING WITH EXTENDED USE Aleve CAPS Allergy Uncoded 01/04/19 15:36 Home Medications Medication Instructions Recorded Confirmed Type azelastine 205.5 mcg (0.15 %) 2 spray INTNAS BID #30 ml 05/21/20 10/02/20 Rx nasal spray dextroamphetamine-amphetamine 20 40 mg PO DAILY tab 09/30/20 10/02/20 History mg tablet clonazepam 1 mg tablet 3 mg PO .COMPLEX #90 tab 10/02/20 10/02/20 Rx diphenhydramine HCl [Benadryl] 25 mg PO Q6H PRN 10/02/20 10/02/20 History famotidine 20 mg PO DAILY 10/02/20 10/02/20 History loratadine 10 mg PO DAILY 10/02/20 10/02/20 History oxymetazoline [Afrin drp INTRANASAL 10/02/20 History (oxymetazoline)] Family History Family History of: Bipolar Family Mental Health History Comment: per brother, multiple family members; mother depression? Alcohol History Hx of Alcohol Use Over the Past 12 Months: No AUDIT Total Score: 0 Smoking Use Have You Smoked or Used Tobacco Products in the Last 30 Days: No Smoking Status: Never smoker Substance History Hx of Prescription Med Misuse Over the Past 12 Months: No Hx of Over the Counter Med Misuse Over the Past 12 Months: No Hx of Inhalent Misuse Over the Past 12 Months: No Hx of Organic Substance Use Over the Past 12 Months: No Hx of Illegal Substances/Street Drug Use Over Past 12 Months: No Problems as a Result of Past Substance Use: None Identified Personal History Living Arrangements: Apartment Living Arrangements Comments: Lives in own trailer at [place]. Says trailer is not in the best of shape. Highest Grade Completed: Graduate School Highest Grade Completed Comment: [employer], ABD, never finished dissertation. 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) Marital Status: Number Of Children: 1--son 29 Beliefs That Will Affect Care: None Current Legal Problems: No Legal Problems Comment: "went bankrupt once but it was traumatic because I didn't think my family would allow it to happen." Hx Traumatic Life Events: No Patient History Medical History Cluster headache Medial meniscus tear Surgical History H/O arthroscopic knee surgery History of rotator cuff surgery Family History Mother Lymphoma Father Prostate cancer Grandmother (Maternal) Hypertension Other Diabetes Social History Smoking Status: Never smoker Preferred Language: Tamazight Communication Ability: Effective Telecom 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 Technician Required: No Beliefs That Will Affect Care: None marital status: Current Living Situation: Alone Feels Safe at Home: Yes Assistive Devices: CPAP and Glasses Review of Systems Review of Systems: All systems reviewed & are unremarkable except as noted in HPI & below Physical Exam Psychiatric: Orientation: alert Apperance: appropriately groomed Eye Contact: good eye contact Motor Behavior: no abnormal motor movements hyperverbal but not fast or pressured Affect: + labile affect; + mood not congruent with affect Mood: + depressed mood Thought Process: + circumstantial thought process Thought Content: + preoccupation; no delusions ongoing hopelessness about his finances and ability to function in his trailer, "I won't overdose, I'd want it to look accidental if that makes you feel better" Homicidal Thoughts: denies homicidal thoughts Hallucinations: no auditory hallucinations and no visual hallucinations Cognition: attention grossly intact Estimated Intelligence: + above average estimated intelligence Insight: + poor insight Judgement: + poor judgement Vital Signs (Past 24 Hours): Last Vital Signs Temp 36.6 C 10/03/20 06:00 Pulse 67 10/03/20 06:38 Resp 16 10/03/20 06:00 BP 117/76 10/03/20 06:38 Pulse Ox 100 10/02/20 15:35 Exam Statement: A physical exam was performed in the ED by Dr. Birmingham for the purposes of medical clearance. I accept that physical as correct and adequate for the purposes of the inpatient physical exam. Results & Data ([facility]) Laboratory Results Laboratory Results - last 24 hr 10/02/20 10/02/20 10/02/20 15:49 15:49 16:23 WBC 9.50 RBC 5.34 Hgb 16.0 Hct 47.2 MCV 88.4 MCH 30.0 MCHC 33.9 RDW Std Deviation 44.8 RDW Coeff of Peter 13.8 Plt Count 313 MPV 11.0 H Immature Gran % (Auto) 0.1 Neut % (Auto) 73.6 Lymph % (Auto) 18.5 Craven % (Auto) 6.5 Eos % (Auto) 0.7 Baso % (Auto) 0.6 Neut # (Auto) 6.98 H Lymph # (Auto) 1.76 Craven # (Auto) 0.62 H Eos # (Auto) 0.07 Baso # (Auto) 0.06 Immature Gran # (Auto) 0.01 Sodium Potassium Chloride Carbon Dioxide Anion Gap BUN Creatinine Est Cr Clr Drug Dosing Est GFR ( Amer) Est GFR (Non-Af Amer) BUN/Creatinine Ratio Glucose Calcium Total Bilirubin AST ALT Alkaline Phosphatase Total Protein Albumin Globulin Albumin/Globulin Ratio TSH Urine Color Yellow Urine Appearance Clear Urine pH 6.5 Ur Specific [place] 1.005 Urine Protein Negative Urine Glucose (UA) Negative Urine Ketones Negative Urine Blood Negative Urine Nitrite Negative Urine Bilirubin Negative Urine Urobilinogen Negative Ur Leukocyte Esterase Negative Salicylates Urine Opiates Screen Neg Ur Methadone, Qual Neg Acetaminophen Urine Barbiturates Neg Ur Phencyclidine (PCP) Neg U Amphetamin/Meth Scrn Neg MDMA (Ecstasy) Screen Neg U Benzodiazepines Scrn Neg Ur Cocaine Metabolite Neg U Marijuana (THC) Screen Neg Ethyl Alcohol mg/dL COVID-19 Eval Order SARS-CoV-2 (PCR) Influenza Type A (PCR) Influenza Type B (PCR) RSV (RT-PCR) 10/02/20 10/02/20 10/02/20 16:23 16:23 16:23 WBC RBC Hgb Hct MCV MCH MCHC RDW Std Deviation RDW Coeff of Peter Plt Count MPV Immature Gran % (Auto) Neut % (Auto) Lymph % (Auto) Craven % (Auto) Eos % (Auto) Baso % (Auto) Neut # (Auto) Lymph # (Auto) Craven # (Auto) Eos # (Auto) Baso # (Auto) Immature Gran # (Auto) Sodium 138 Potassium 4.2 Chloride 106 Carbon Dioxide 27 Anion Gap 5.0 BUN 7 Creatinine 1.04 Est Cr Clr Drug Dosing 89.3 Est GFR ( Amer) 91.9 Est GFR (Non-Af Amer) 79.3 BUN/Creatinine Ratio 6.9 L Glucose 85 Calcium 9.9 Total Bilirubin 0.8 AST 21 ALT 39 Alkaline Phosphatase 94 Total Protein 8.3 H Albumin 4.1 Globulin 4.2 H Albumin/Globulin Ratio 1.0 TSH 1.030 Urine Color Urine Appearance Urine pH Ur Specific [place] Urine Protein Urine Glucose (UA) Urine Ketones Urine Blood Urine Nitrite Urine Bilirubin Urine Urobilinogen Ur Leukocyte Esterase Salicylates < 1.7 L Urine Opiates Screen Ur Methadone, Qual Acetaminophen < 2 L Urine Barbiturates Ur Phencyclidine (PCP) U Amphetamin/Meth Scrn MDMA (Ecstasy) Screen U Benzodiazepines Scrn Ur Cocaine Metabolite U Marijuana (THC) Screen Ethyl Alcohol mg/dL < 3.0 COVID-19 Eval Order SARS-CoV-2 (PCR) Influenza Type A (PCR) Influenza Type B (PCR) RSV (RT-PCR) 10/02/20 10/02/20 18:01 18:01 WBC RBC Hgb Hct MCV MCH MCHC RDW Std Deviation RDW Coeff of Peter Plt Count MPV Immature Gran % (Auto) Neut % (Auto) Lymph % (Auto) Craven % (Auto) Eos % (Auto) Baso % (Auto) Neut # (Auto) Lymph # (Auto) Craven # (Auto) Eos # (Auto) Baso # (Auto) Immature Gran # (Auto) Sodium Potassium Chloride Carbon Dioxide Anion Gap BUN Creatinine Est Cr Clr Drug Dosing Est GFR ( Amer) Est GFR (Non-Af Amer) BUN/Creatinine Ratio Glucose Calcium Total Bilirubin AST ALT Alkaline Phosphatase Total Protein Albumin Globulin Albumin/Globulin Ratio TSH Urine Color Urine Appearance Urine pH Ur Specific [place] Urine Protein Urine Glucose (UA) Urine Ketones Urine Blood Urine Nitrite Urine Bilirubin Urine Urobilinogen Ur Leukocyte Esterase Salicylates Urine Opiates Screen Ur Methadone, Qual Acetaminophen Urine Barbiturates Ur Phencyclidine (PCP) U Amphetamin/Meth Scrn MDMA (Ecstasy) Screen U Benzodiazepines Scrn Ur Cocaine Metabolite U Marijuana (THC) Screen Ethyl Alcohol mg/dL COVID-19 Eval Order CovFluRsv at [facility] SARS-CoV-2 (PCR) NEGATIVE Influenza Type A (PCR) Negative Influenza Type B (PCR) Negative RSV (RT-PCR) Negative Current Inpatient Medications Current Inpatient Medications: Current Inpatient Medications Acetaminophen (Acetaminophen 325 Mg Tab) 650 mg PO Q4H PRN PRN Reason: Headache or Minor Fever Stop: 11/01/20 19:42 Last Admin: 10/03/20 11:22 Dose: 650 mg Documented by: Al Hydrox/Mg Hydrox/Simethicone (Aluminum/Magnesium Susp 30 Ml Udc) 30 ml PO Q4H PRN PRN Reason: GI Upset Stop: 11/01/20 19:42 Bismuth Subsalicylate (Bismuth Subsalicylate Liqd 236 Ml) 15 ml PO PRN PRN PRN Reason: Loose Stool Stop: 11/01/20 19:42 Clonazepam (Clonazepam 1 Mg Tab) 3 mg PO HS JACLYN Stop: 11/01/20 20:59 Last Admin: 10/02/20 21:46 Dose: 3 mg Documented by: Diphenhydramine HCl (Diphenhydramine Capsule 25 Mg Cap) 25 mg PO Q6H PRN PRN Reason: Allergy Symptoms Stop: 11/02/20 11:47 Famotidine (Famotidine 20 Mg Tab) 20 mg PO DAILY JACLYN Stop: 11/02/20 11:59 Last Admin: 10/03/20 12:32 Dose: 20 mg Documented by: Hydroxyzine HCl (Hydroxyzine Hcl 25 Mg Tab) 50 mg PO HSZ PRN PRN Reason: Insomnia Stop: 11/01/20 19:42 Hydroxyzine HCl (Hydroxyzine Hcl 25 Mg Tab) 25 mg PO Q4H PRN PRN Reason: Anxiety Stop: 11/01/20 19:42 Loratadine (Loratadine 10 Mg Tab) 10 mg PO DAILY COUNTS INCLUDE 234 BEDS AT THE [facility] Stop: 11/02/20 11:59 Last Admin: 10/03/20 12:32 Dose: 10 mg Documented by: Magnesium Hydroxide (Magnesium Hydroxide Susp 30 Ml Udc) 30 ml PO DAILY PRN PRN Reason: Constipation Stop: 11/01/20 19:42 Miscellaneous (Azelastine Nassal [place] - Order Awaiting Action) 1 ea N/A QS COUNTS INCLUDE 234 BEDS AT THE [facility] Stop: 11/02/20 15:59 Sodium Chloride (Sodium Chloride 0.65% Na Soln 45 Ml ([place])) 1 - 2 sprays NA PRN PRN PRN Reason: Nasal Dryness/Congestion Stop: 11/01/20 19:42
[2020-10-03] MEDS: diphenhydrAMINE Capsule 25 MG CAP PO PRN (17:38)
[2020-10-03] MEDS: clonazePAM 1 MG TAB PO SCH (21:00)
[2020-10-04] MEDS: FAMOTIDINE 20 MG TAB PO SCH (08:03)
[2020-10-04] MEDS: LORATADINE 10 MG TAB PO SCH (08:03)
[2020-10-04 08:37] LABS: Albumin Level 3.6 gm/dl (3.4-5.0)
[2020-10-04 08:44] LABS: C Reactive Protein 0.56 mg/dl (0-0.29); Prealbumin 24.7 mg/dl (20-40)
[2020-10-04 09:07] LABS: Lyme Ab IgG w/WB Rflx Negative (Negative); Lyme Ab IgM w/WB Rflx Negative (Negative)
[2020-10-04] MEDS ORDERED: BENZTROPINE MESYLATE 0.5 MG TAB PO PRN (14:34)
--- NOTE | 2020-10-04 14:54 | Psychiatric Progress Note ---
Date of Service October 04, 2020, note 45+ min spent with 1-on-1 with patient, review of treatment with staff, phone conversation for collateral hx with brother and sister in law. Impression / Recommendations Impression 55 yo male with a history of at least 1 hypomanic episode (patient states medication induced), family history of bipolar illness and prior treatment for ADHD/depression/OCD (mainly obsessions around sinuses during mood episodes vs OCPD) presented a few days after a [place] gesture [place] 40 [place] Adder[place]. 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 10/04/20--minor improvement in structure and support of unit. (1) Depression: 10/04/20--Risks/benefits/alternatives were reviewed re: antipsychotics for bipolar II depression. Discussion included but was not limited to metabolic side effects, risks of TD and suicidal thoughts. There were no abnormal motor movements at baseline. Fasting glucose and lipid panel completed this am. Agreed to Abilify 2 mg daily and titrate in consultation with family. 10/03/20--The patient was admitted to the [facility] on q15 min checks (behavioral with suicide precautions) for safety. The patient will participate in group, recreational, and milieu therapies and will be offered additional individual and family sessions as clinically appropriate. Initially discussed trial of Wellbutrin or Prozac given presenting symptoms, prior to discussion with brother and hx of hypomanic episode. Patient wanted family to weigh in and this was unable to be addressed on first phone call as brother's flight was taking off. Reviewed with patient that I do not plan to resume Adderall immediately given involvement in his attempt and weight loss. Reviewed that current OCD symptoms seems more likely related to somatic preoccupation/OCPD and will consider mood stabilizer options. He cannot recall past meds. (2) Allergic rhinitis: 10/03/20--order home meds, will not add steroids at this time due to mood issues. 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 (4) Weight loss, unintentional: 10/04/20--will have f/u outpatient with PCP. Patient declines CXR and heme check stool at this time. 10/03/20--Brother is requesting additional work up for weight loss, Head CT, LP. Reviewed that will order some additional labs and a likely a CXR given mold exposure reported but currently no acute indication for head imaging/neuro consult. Consider as outpatient. Inventory Assets Strengths: intelligent, local family Needs: resume outpatient services Risk Factors Assessment Male: Yes : Yes Do You Have Access To A Gun?: No Mental Health Diagnoses: Yes Substance Use Disorders: No Previous Attempt; Didn't Tell Anyone: Yes (this visit) Protective Factors Assessment : No Responsible for Young Children: No Employed: No Supportive Family: Yes Interval History Chief Complaint "I'm not as lonely here but the heat and my sinuses, those smells". Review of Systems Sleep Information Total Hours of Sleep: 7.5 Meal Information Percent Meal Consumed - Breakfast: 100 Percent Meal Consumed - Lunch: 100 Percent Meal Consumed - Dinner: 100 Subjective Subjective Patient was seen & assessed and interval progress reviewed with nursing and social work. No specific issues overnight. He is frequently off topic but overall cooperative. States he was triggered (irritated) by another patient's off topic discussion. Concentration OK for [place] and puzzles but not "ready to talk about living with parents" or the trailer. Additional history is that sinus issues tend to peak as part of hypomanic episode. He was not hospitalized in the 90s but did drive 4 hours to visit brother with pressures speech/racing thoughts because of sinus issues. Was seen by a family friend/psychiatrist in area (brother is a doctor, his a psych nurse) and treated with lithium which he did OK with for a period of time. They expressed concerns that hoarding is also an issue. Reviewed labs with brother and patient. Patient does not want acute CXR or heme check stool as remainder of weight loss work up as states his weight loss was intentional and then also driven by depression and also no outings/gathering for larger meals during pandemic. Reviewed that mildly elevated sed rate and CRP are likely chronic sinusitis/arthritis but will arrange f/u with PCP. Physical Exam Psychiatric Orientation: alert Apperance: appropriately groomed Eye Contact: good eye contact Motor Behavior: no abnormal motor movements Affect: + labile affect; + mood not congruent with affect Mood: + depressed mood Thought Process: + circumstantial thought process Thought Content: + preoccupation; no delusions Homicidal Thoughts: denies homicidal thoughts Hallucinations: no auditory hallucinations and no visual hallucinations Cognition: attention grossly intact Estimated Intelligence: + above average estimated intelligence Insight: + poor insight Judgement: + poor judgement Vital Signs (Past 24 Hours) Last Vital Signs Temp 36.6 C 10/04/20 06:00 Pulse 65 10/04/20 06:18 Resp 16 10/04/20 06:00 BP 112/70 10/04/20 06:18 Pulse Ox 100 10/02/20 15:35 Results & Data ([facility]) Laboratory Results Laboratory Results - last 24 hr 10/04/20 10/04/20 10/04/20 07:54 07:54 07:54 ESR Fasting Glucose 91 Lactate Dehydrogenase 176 C-Reactive Protein 0.56 H Albumin 3.6 Prealbumin 24.7 Triglycerides 76 Cholesterol 109 LDL Cholesterol, Calc 41 VLDL Cholesterol, Calc 15 HDL Cholesterol 53 Cholesterol/HDL Ratio 2 Vitamin B12 485 Folate 8.00 Lyme Disease IgG Ab Lyme Disease IgM Ab 10/04/20 10/04/20 07:54 07:54 ESR 34 H Fasting Glucose Lactate Dehydrogenase C-Reactive Protein Albumin Prealbumin Triglycerides Cholesterol LDL Cholesterol, Calc VLDL Cholesterol, Calc HDL Cholesterol Cholesterol/HDL Ratio Vitamin B12 Folate Lyme Disease IgG Ab Negative Lyme Disease IgM Ab Negative Current Inpatient Medications Current Inpatient Medications: Current Inpatient Medications Acetaminophen (Acetaminophen 325 Mg Tab) 650 mg PO Q4H PRN PRN Reason: Headache or Minor Fever Stop: 11/01/20 19:42 Last Admin: 10/03/20 11:22 Dose: 650 mg Documented by: Al Hydrox/Mg Hydrox/Simethicone (Aluminum/Magnesium Susp 30 Ml Udc) 30 ml PO Q4H PRN PRN Reason: GI Upset Stop: 11/01/20 19:42 Aripiprazole (Aripiprazole 5 Mg Tab) 2 mg PO QAM JACLYN Stop: 11/03/20 14:29 Benztropine Mesylate (Benztropine Mesylate 0.5 Mg Tab) 0.5 mg PO Q6 PRN PRN Reason: muscle spasm Stop: 11/03/20 14:33 Bismuth Subsalicylate (Bismuth Subsalicylate Liqd 236 Ml) 15 ml PO PRN PRN PRN Reason: Loose Stool Stop: 11/01/20 19:42 Clonazepam (Clonazepam 1 Mg Tab) 3 mg PO HS [facility] Stop: 11/01/20 20:59 Last Admin: 10/03/20 21:00 Dose: 3 mg Documented by: Diphenhydramine HCl (Diphenhydramine Capsule 25 Mg Cap) 25 mg PO Q6H PRN PRN Reason: Allergy Symptoms Stop: 11/02/20 11:47 Last Admin: 10/03/20 17:38 Dose: 25 mg Documented by: Famotidine (Famotidine 20 Mg Tab) 20 mg PO DAILY [facility] Stop: 11/02/20 11:59 Last Admin: 10/04/20 08:03 Dose: 20 mg Documented by: Loratadine (Loratadine 10 Mg Tab) 10 mg PO DAILY [facility] Stop: 11/02/20 11:59 Last Admin: 10/04/20 08:03 Dose: 10 mg Documented by: Magnesium Hydroxide (Magnesium Hydroxide Susp 30 Ml Udc) 30 ml PO DAILY PRN PRN Reason: Constipation Stop: 11/01/20 19:42 Miscellaneous (Azelastine Nassal [place] - Order Awaiting Action) 1 ea N/A QS [facility] Stop: 11/02/20 15:59 Last Admin: 10/04/20 08:03 Dose: Not Given Documented by: Quetiapine Fumarate (Quetiapine Fumarate 25 Mg Tablet) 25 mg PO Q6 PRN PRN Reason: Anxiety/Insomnia Stop: 11/02/20 17:59 Sodium Chloride (Sodium Chloride 0.65% Na Soln 45 Ml ([place])) 1 - 2 sprays NA PRN PRN PRN Reason: Nasal Dryness/Congestion Stop: 11/01/20 19:42 Last Admin: 10/03/20 20:58 Dose: 2 sprays Documented by: Mental Health & Subst Abuse Tx Therapist Name of Therapist: None Supervisor Estimator And Drafter Name of Supervisor Estimator And Drafter: None Post Discharge Appointments Primary Care Physician Name Of Family Doctor: Dr. Myers (1) Depression Depression Type: unspecified Qualified Code(s): F32.9 - Major depressive disorder, single episode, unspecified
[2020-10-04] MEDS: ARIPIprazole 1 MG/ML ORAL SOLN 150 ML BTL PO SCH (15:03)
[2020-10-04] MEDS: diphenhydrAMINE Capsule 25 MG CAP PO PRN (20:34)
[2020-10-04] MEDS: clonazePAM 1 MG TAB PO SCH (21:52)
[2020-10-05] MEDS: LORATADINE 10 MG TAB PO SCH (07:52)
[2020-10-05] MEDS: ARIPIprazole 1 MG/ML ORAL SOLN 150 ML BTL PO SCH (07:52)
[2020-10-05] MEDS: FAMOTIDINE 20 MG TAB PO SCH (07:52)
[2020-10-05] MEDS ORDERED: OXYMETAZOLINE 0.05% 30 ML BTL PRN (10:11)
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
[2020-10-05] MEDS: AZELASTINE INH PRN (13:54)
[2020-10-05] MEDS: diphenhydrAMINE Capsule 25 MG CAP PO PRN (20:31)
[2020-10-05] MEDS: clonazePAM 1 MG TAB PO SCH (21:27)
[2020-10-06] MEDS: FAMOTIDINE 20 MG TAB PO SCH (07:41)
[2020-10-06] MEDS: LORATADINE 10 MG TAB PO SCH (07:41)
[2020-10-06] MEDS ORDERED: ARIPIprazole 1 MG/ML ORAL SOLN 150 ML BTL PO SCH (09:00)
[2020-10-06] MEDS ORDERED: ARIPiprazole 5 MG TAB PO SCH (09:00)
--- NOTE | 2020-10-06 10:10 | Progress Note ---
Date of Service October 06, 2020 Assessment & Plan (1) Depression: 31318--[id number] with Abilify dosing, current dose is 5mg PO. The patient will participate in group, recreational, and milieu therapies and will be offered additional individual and family sessions as clinically appropriate. Family session planned for today. 10/05/20--titrate Abilify 5 mg tomorrow. Family session. 10/04/20--Risks/benefits/alternatives were reviewed re: antipsychotics for bipolar II depression. Discussion included but was not limited to metabolic side effects, risks of TD and suicidal thoughts. There were no abnormal motor movements at baseline. Fasting glucose and lipid panel completed this am. [facility] ed to Abilify 2 mg daily and titrate in consultation with family. 10/03/20--The patient was admitted to the [facility] ([facility] mental health unit) on q15 min checks (behavioral with suicide precautions) for safety. The patient will participate in group, recreational, and milieu therapies and will be offered additional individual and family sessions as clinically appropriate. Initially discussed trial of Wellbutrin or Prozac given presenting symptoms, prior to discussion with brother and hx of hypomanic episode. Patient wanted family to weigh in and this was unable to be addressed on first phone call as brother's flight was taking off. Reviewed with patient that I do not plan to resume Adderall immediately given involvement in his attempt and weight loss. Reviewed that current OCD symptoms seems more likely related to somatic preoccupation/OCPD and will consider mood stabilizer options. He cannot recall past meds. Depression Type: unspecified Qualified Code(s): F32.9 - Major depressive disorder, single episode, unspecified (2) Allergic rhinitis: 10/03/20--order home meds, will not add steroids at this time due to mood issues. (3) Sleep terror disorder: 10/06/2020-- Patient reports broken sleep but denies any night terrors last night. 10/03/20--confirmed Klonopin dose with PDMP. (4) Weight loss, unintentional: 10/04/20--will have f/u outpatient with PCP. Patient declines CXR and heme check stool at this time. 10/03/20--Brother is requesting additional work up for weight loss, Head CT, LP. Reviewed that will order some additional labs and a likely a CXR given mold exposure reported but currently no acute indication for head imaging/neuro consult. Consider as outpatient. Admission and Anticipated Discharge Date Admission Date: October 02, 2020 Subjective Patient seen, chart reviewed, and case discussed with treatment team. Patient is a 55-year-old male with a diagnosis of bipolar disorder who presents following a suicide gesture in the context of mood dysregulation. Today, patient was seen sitting down eating breakfast. He denies any issues with appetite. He acknowledges that he slept last night but states that his sleep was broken up. Regarding his mood, patient reports some improvement. He denies any suicidal ideation. Patient is tolerating the uptitration of Abilify well. No side effects reported or observed. Patient still remains somewhat tangential in his thought process and speech. Reports good effect of groups and helping him stay focused. Also reports help from solving puzzles which are goal oriented tasks that the patient states he can perform "rationally without panic". Review of Systems Review of Systems: All systems reviewed & are unremarkable except as noted in HPI & below Physical Exam Psychiatric: A+Ox3, euthymic affect Apperance: appropriately dressed, appropriately groomed and appeared stated age Eye Contact: good eye contact Motor Behavior: steady gait and station Speech: normal rate/rhythm/volume of speech Affect: + elated affect Thought Process: goal directed thought process, + circumstantial thought process and + tangential thought process Thought Content: + cognitive distortions Suicidal Thoughts: denies suicidal thoughts Homicidal Thoughts: denies homicidal thoughts Cognition: recent memory grossly intact Estimated Intelligence: average estimated intelligence Insight: + fair insight Judgement: + impaired judgement Results & Data ([facility]) Vital Signs (Past 12 Hours) Vital Signs Temp Pulse Resp BP 10/06/20 06:47 52 L 119/79 10/06/20 06:45 36.6 C 51 L 16 124/73
[2020-10-06] MEDS: diphenhydrAMINE Capsule 25 MG CAP PO PRN ×2 (12:51→18:51)
[2020-10-06] MEDS: AZELASTINE INH PRN (21:11)
[2020-10-06] MEDS: clonazePAM 1 MG TAB PO SCH (22:15)
[2020-10-07] MEDS: QUEtiapine FUMARATE 25 MG TABLET PO PRN ×2 (00:46→20:44)
[2020-10-07] MEDS: ARIPiprazole 5 MG TAB PO SCH (08:08)
[2020-10-07] MEDS: FAMOTIDINE 20 MG TAB PO SCH (08:08)
[2020-10-07] MEDS: LORATADINE 10 MG TAB PO SCH (08:08)
[2020-10-07] MEDS: diphenhydrAMINE Capsule 25 MG CAP PO PRN ×2 (12:40→19:32)
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
[2020-10-07] MEDS: clonazePAM 1 MG TAB PO SCH (22:13)
[2020-10-08] MEDS: ARIPiprazole 5 MG TAB PO SCH (07:35)
[2020-10-08] MEDS: LORATADINE 10 MG TAB PO SCH (07:36)
[2020-10-08] MEDS: FAMOTIDINE 20 MG TAB PO SCH (07:36)
[2020-10-08] MEDS: diphenhydrAMINE Capsule 25 MG CAP PO PRN (10:28)
[2020-10-08] MEDS ORDERED: DESTROY THIS MEDICATION ONE (11:20)
--- NOTE | 2020-10-08 17:06 | Discharge Summary ---
Date of Service October 08, 2020 History of Present Illness Patient reports no consistent medication/psychiatric care since Dr. Fernandez retired 2 years ago. 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 "it's almost all gone". He went out into the [facility] on 09/28 for a long hike hoping that his heart would give out and his would appear natural from an CT. He states that parts of his trailer have been in disarray (water leak) for a few weeks but that on that day he realized that there was moldy water in his air conditioning system and it triggered his allergies. "This was it." and doesn't think he can live there anymore. He notes doesn't relate well with his neighbor there but does help her out with driving her to appointments and feeding her cats for "seed money". He went to stay with his parents and they disagreed over the temperature of the house and so he decided to come to the hospital as still feeling depressed and hopeless. During the discussion his affect did not match content of what he was saying and he then admitted to taking 40 mg Adderall left over from a script in the fall with the hopes it would increase his heart rate. He also wants to restart Adderall as "at least it gives me some energy", lately doesn't enjoy anything but is also very money focussed. He feels more "shaky" or anxious during the day and admits that he was taking Klonopin 1 mg during the day for a bit (diverting from his hs med) but then his night terrors resumed. He reports not feeling very hungry at times but eating three meals a day and still losing 50 lbs. He is very sensitive to temperature and smells. He has not prior hx of Asperger's dx. Spoke with his brother at his request who hasn't had much involvment due to pandemic but worries about overall mental condition and related a history of a hypomanic episode in the like this in that he got very focussed on his sinuses and wasn't sleeping well. The patient attributes to side effect of oxycodone. Further review of chart shows a recent allergy visit where a solumedrol dose pack was order. The patient confirms he did not start it yet. Physical Exam Psychiatric A+Ox3, euthymic affect Orientation: alert Apperance: appropriately dressed, appropriately groomed and appeared stated age Eye Contact: good eye contact Motor Behavior: steady gait and station and no abnormal motor movements Speech: normal rate/rhythm/volume of speech Affect: euthymic affect Mood: no depressed mood Thought Process: goal directed thought process Thought Content: reality based without delusions; no delusions Suicidal Thoughts: denies suicidal thoughts Homicidal Thoughts: denies homicidal thoughts Hallucinations: no auditory hallucinations and no visual hallucinations Cognition: recent memory grossly intact and attention grossly intact Estimated Intelligence: average estimated intelligence and + above average estimated intelligence Insight: + fair insight Judgement: + fair judgement Vital Signs (Past 24 Hours) Last Vital Signs Temp 36.6 C 10/08/20 11:57 Pulse 78 10/08/20 11:57 Resp 16 10/08/20 11:57 BP 123/81 10/08/20 11:57 Pulse Ox 100 10/08/20 11:57 Principal Diagnosis Depression, Mood disorder Psychiatric Data See daily stay summary. In short, safety was maintained, and the patient was cooperative with care. Medication changes included Abilify and the patient tolerated this well. Family session was held and safety plan was completed prior to discharge. Day of Discharge Assessment Today the patient voices readiness for discharge. They note improvement in mood and deny thoughts to harm self or others. Thoughts remain organized and they are improved from admission. There is no evidence of psychosis. They agree to take medications as prescribed and keep follow-up appointments. They are stable for discharge to outpatient level of care. 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 Risk Factors Assessment Male: Yes : Yes Do You Have Access To A Gun?: No Mental Health Diagnoses: Yes Substance Use Disorders: No Previous Attempt; Didn't Tell Anyone: Yes (this visit) Protective Factors Assessment : No Responsible for Young Children: No Employed: No Supportive Family: Yes Tobacco Cessation at Discharge Tobacco Cessation Medication Prescribed at Discharge: Not Applicable/Non-Smoker Total Time Total Time Spent: Greater Than 30 Minutes Total Time Includes: Examination of the patient, Discharge Planning and Medication Reconciliation Discharge Data Lab Results 10/02/20 10/02/20 10/02/20 15:49 15:49 16:23 WBC 9.50 RBC 5.34 Hgb 16.0 Hct 47.2 MCV 88.4 MCH 30.0 MCHC 33.9 RDW Std Deviation 44.8 RDW Coeff of Peter 13.8 Plt Count 313 MPV 11.0 H Immature Gran % (Auto) 0.1 Neut % (Auto) 73.6 Lymph % (Auto) 18.5 Sum[place] % (Auto) 6.5 Eos % (Auto) 0.7 Baso % (Auto) 0.6 Neut # (Auto) 6.98 H Lymph # (Auto) 1.76 Sumter # (Auto) 0.62 H Eos # (Auto) 0.07 Baso # (Auto) 0.06 Immature Gran # (Auto) 0.01 ESR Sodium Potassium Chloride Carbon Dioxide Anion Gap BUN Creatinine Est Cr Clr Drug Dosing Est GFR ( Amer) Est GFR (Non-Af Amer) BUN/Creatinine Ratio Glucose Fasting Glucose Calcium Total Bilirubin AST ALT Alkaline Phosphatase Lactate Dehydrogenase C-Reactive Protein Total Protein Albumin Globulin Albumin/Globulin Ratio Prealbumin Triglycerides Cholesterol LDL Cholesterol, Calc VLDL Cholesterol, Calc HDL Cholesterol Cholesterol/HDL Ratio Vitamin B12 Folate TSH Urine Color Yellow Urine Appearance Clear Urine pH 6.5 Ur Specific [place] 1.005 Urine Protein Negative Urine Glucose (UA) Negative Urine Ketones Negative Urine Blood Negative Urine Nitrite Negative Urine Bilirubin Negative Urine Urobilinogen Negative Ur Leukocyte Esterase Negative Salicylates Urine Opiates Screen Neg Ur Methadone, Qual Neg Acetaminophen Urine Barbiturates Neg Ur Phencyclidine (PCP) Neg U Amphetamin/Meth Scrn Neg MDMA (Ecstasy) Screen Neg U Benzodiazepines Scrn Neg Ur Cocaine Metabolite Neg U Marijuana (THC) Screen Neg Ethyl Alcohol mg/dL Lyme Disease IgG Ab Lyme Disease IgM Ab COVID-19 Eval Order SARS-CoV-2 (PCR) Influenza Type A (PCR) Influenza Type B (PCR) RSV (RT-PCR) 10/02/20 10/02/20 10/02/20 16:23 16:23 16:23 WBC RBC Hgb Hct MCV MCH MCHC RDW Std Deviation RDW Coeff of Peter Plt Count MPV Immature Gran % (Auto) Neut % (Auto) Lymph % (Auto) Sum[place] % (Auto) Eos % (Auto) Baso % (Auto) Neut # (Auto) Lymph # (Auto) Sum[place] # (Auto) Eos # (Auto) Baso # (Auto) Immature Gran # (Auto) ESR Sodium 138 Potassium 4.2 Chloride 106 Carbon Dioxide 27 Anion Gap 5.0 BUN 7 Creatinine 1.04 Est Cr Clr Drug Dosing 89.3 Est GFR ( Amer) 91.9 Est GFR (Non-Af Amer) 79.3 BUN/Creatinine Ratio 6.9 L Glucose 85 Fasting Glucose Calcium 9.9 Total Bilirubin 0.8 AST 21 ALT 39 Alkaline Phosphatase 94 Lactate Dehydrogenase C-Reactive Protein Total Protein 8.3 H Albumin 4.1 Globulin 4.2 H Albumin/Globulin Ratio 1.0 Prealbumin Triglycerides Cholesterol LDL Cholesterol, Calc VLDL Cholesterol, Calc HDL Cholesterol Cholesterol/HDL Ratio Vitamin B12 Folate TSH 1.030 Urine Color Urine Appearance Urine pH Ur Specific [place] Urine Protein Urine Glucose (UA) Urine Ketones Urine Blood Urine Nitrite Urine Bilirubin Urine Urobilinogen Ur Leukocyte Esterase Salicylates < 1.7 L Urine Opiates Screen Ur Methadone, Qual Acetaminophen < 2 L Urine Barbiturates Ur Phencyclidine (PCP) U Amphetamin/Meth Scrn MDMA (Ecstasy) Screen U Benzodiazepines Scrn Ur Cocaine Metabolite U Marijuana (THC) Screen Ethyl Alcohol mg/dL < 3.0 Lyme Disease IgG Ab Lyme Disease IgM Ab COVID-19 Eval Order SARS-CoV-2 (PCR) Influenza Type A (PCR) Influenza Type B (PCR) RSV (RT-PCR) 10/02/20 10/02/20 10/04/20 18:01 18:01 07:54 WBC RBC Hgb Hct MCV MCH MCHC RDW Std Deviation RDW Coeff of Peter Plt Count MPV Immature Gran % (Auto) Neut % (Auto) Lymph % (Auto) Sum[place] % (Auto) Eos % (Auto) Baso % (Auto) Neut # (Auto) Lymph # (Auto) [place] # (Auto) Eos # (Auto) Baso # (Auto) Immature Gran # (Auto) ESR Sodium Potassium Chloride Carbon Dioxide Anion Gap BUN Creatinine Est Cr Clr Drug Dosing Est GFR ( Amer) Est GFR (Non-Af Amer) BUN/Creatinine Ratio Glucose Fasting Glucose 91 Calcium Total Bilirubin AST ALT Alkaline Phosphatase Lactate Dehydrogenase C-Reactive Protein 0.56 H Total Protein Albumin 3.6 Globulin Albumin/Globulin Ratio Prealbumin 24.7 Triglycerides 76 Cholesterol 109 LDL Cholesterol, Calc 41 VLDL Cholesterol, Calc 15 HDL Cholesterol 53 Cholesterol/HDL Ratio 2 Vitamin B12 Folate TSH Urine Color Urine Appearance Urine pH Ur Specific [place] Urine Protein Urine Glucose (UA) Urine Ketones Urine Blood Urine Nitrite Urine Bilirubin Urine Urobilinogen Ur Leukocyte Esterase Salicylates Urine Opiates Screen Ur Methadone, Qual Acetaminophen Urine Barbiturates Ur Phencyclidine (PCP) U Amphetamin/Meth Scrn MDMA (Ecstasy) Screen U Benzodiazepines Scrn Ur Cocaine Metabolite U Marijuana (THC) Screen Ethyl Alcohol mg/dL Lyme Disease IgG Ab Lyme Disease IgM Ab COVID-19 Eval Order CovFluRsv at [facility] SARS-CoV-2 (PCR) NEGATIVE Influenza Type A (PCR) Negative Influenza Type B (PCR) Negative RSV (RT-PCR) Negative 10/04/20 10/04/20 10/04/20 07:54 07:54 07:54 WBC RBC Hgb Hct MCV MCH MCHC RDW Std Deviation RDW Coeff of Peter Plt Count MPV Immature Gran % (Auto) Neut % (Auto) Lymph % (Auto) [place] % (Auto) Eos % (Auto) Baso % (Auto) Neut # (Auto) Lymph # (Auto) [place] # (Auto) Eos # (Auto) Baso # (Auto) Immature Gran # (Auto) ESR Sodium Potassium Chloride Carbon Dioxide Anion Gap BUN Creatinine Est Cr Clr Drug Dosing Est GFR ( Amer) Est GFR (Non-Af Amer) BUN/Creatinine Ratio Glucose Fasting Glucose Calcium Total Bilirubin AST ALT Alkaline Phosphatase Lactate Dehydrogenase 176 C-Reactive Protein Total Protein Albumin Globulin Albumin/Globulin Ratio Prealbumin Triglycerides Cholesterol LDL Cholesterol, Calc VLDL Cholesterol, Calc HDL Cholesterol Cholesterol/HDL Ratio Vitamin B12 485 Folate 8.00 TSH Urine Color Urine Appearance Urine pH Ur Specific [place] Urine Protein Urine Glucose (UA) Urine Ketones Urine Blood Urine Nitrite Urine Bilirubin Urine Urobilinogen Ur Leukocyte Esterase Salicylates Urine Opiates Screen Ur Methadone, Qual Acetaminophen Urine Barbiturates Ur Phencyclidine (PCP) U Amphetamin/Meth Scrn MDMA (Ecstasy) Screen U Benzodiazepines Scrn Ur Cocaine Metabolite U Marijuana (THC) Screen Ethyl Alcohol mg/dL Lyme Disease IgG Ab Negative Lyme Disease IgM Ab Negative COVID-19 Eval Order SARS-CoV-2 (PCR) Influenza Type A (PCR) Influenza Type B (PCR) RSV (RT-PCR) 10/04/20 07:54 WBC RBC Hgb Hct MCV MCH MCHC RDW Std Deviation RDW Coeff of Peter Plt Count MPV Immature Gran % (Auto) Neut % (Auto) Lymph % (Auto) Sum[place] % (Auto) Eos % (Auto) Baso % (Auto) Neut # (Auto) Lymph # (Auto) [place] # (Auto) Eos # (Auto) Baso # (Auto) Immature Gran # (Auto) ESR 34 H Sodium Potassium Chloride Carbon Dioxide Anion Gap BUN Creatinine Est Cr Clr Drug Dosing Est GFR ( Amer) Est GFR (Non-Af Amer) BUN/Creatinine Ratio Glucose Fasting Glucose Calcium Total Bilirubin AST ALT Alkaline Phosphatase Lactate Dehydrogenase C-Reactive Protein Total Protein Albumin Globulin Albumin/Globulin Ratio Prealbumin Triglycerides Cholesterol LDL Cholesterol, Calc VLDL Cholesterol, Calc HDL Cholesterol Cholesterol/HDL Ratio Vitamin B12 Folate TSH Urine Color Urine Appearance Urine pH Ur Specific [place] Urine Protein Urine Glucose (UA) Urine Ketones Urine Blood Urine Nitrite Urine Bilirubin Urine Urobilinogen Ur Leukocyte Esterase Salicylates Urine Opiates Screen Ur Methadone, Qual Acetaminophen Urine Barbiturates Ur Phencyclidine (PCP) U Amphetamin/Meth Scrn MDMA (Ecstasy) Screen U Benzodiazepines Scrn Ur Cocaine Metabolite U Marijuana (THC) Screen Ethyl Alcohol mg/dL Lyme Disease IgG Ab Lyme Disease IgM Ab COVID-19 Eval Order SARS-CoV-2 (PCR) Influenza Type A (PCR) Influenza Type B (PCR) RSV (RT-PCR) Hospital Course (1) Depression: 10/07/2020-- Continue with abilify 5mg PO qam. Patient reporting no further suicidal ideation at this time. [id number]--[id number] with Abilify dosing, current dose is 5mg PO. The patient will participate in group, recreational, and milieu therapies and will be offered additional individual and family sessions as clinically appropriate. F amily session planned for today. 10/05/20--titrate Abilify 5 mg tomorrow. Family session. 10/04/20--Risks/benefits/alternatives were reviewed re: antipsychotics for bipolar II depression. Discussion included but was not limited to metabolic side effects, risks of TD and suicidal thoughts. There were no abnormal motor movements at baseline. Fasting glucose and lipid panel completed this am. Agree d to Abilify 2 mg daily and titrate in consultation with family. 10/03/20--The patient was admitted to the [facility] ([facility] inpatient mental health unit) on q15 min checks (behavioral with suicide precautions) for safety. The patient will participate in group, recreational, and milieu therapies and will be offered additional individual and family sessions as clinically appropriate. Initially discussed trial of Wellbutrin or Prozac given presenting symptoms, prior to discussion with brother and hx of hypomanic episode. Patient wanted family to weigh in and this was unable to be addressed on first phone call as brother's flight was taking off. Reviewed with patient that I do not plan to resume Adderall immediately given involvement in his attempt and weight loss. Reviewed that current OCD symptoms seems more likely related to somatic preoccupation/OCPD and will consider mood stabilizer options. He cannot recall past meds. (2) Allergic rhinitis: 10/03/20--order home meds, will not add steroids at this time due to mood issues. 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 10/06/2020-- Patient reports broken sleep but denies any night terrors last night. 10/03/20--confirmed Klonopin dose with PDMP. (4) Weight loss, unintentional: 10/04/20--will have f/u outpatient with PCP. Patient declines CXR and heme check stool at this time. 10/03/20--Brother is requesting additional work up for weight loss, Head CT, LP. Reviewed that will order some additional labs and a likely a CXR given mold exposure reported but currently no acute indication for head imaging/neuro consult. Consider as outpatient. Mental Health & Subst Abuse Tx Psychiatrist Name of Psychiatrist: Patricia Rojas Psychiatrist's Date of Appointment with Psychiatrist: 10/20/20 Time of Appointment with Psychiatrist: 1130 Psychiatric Appointment Comment: in person follow up, located in the [facility], back entrance Psychiatrist Release of Information: Obtained, Reviewed and Signed Therapist Name of Therapist: None Brake Machine Operator Name of Brake Machine Operator: [employer] Phone Number for Brake Machine Operator: [phone] Case Management Appointment Comment: They will call you to follow up Brake Machine Operator Release of Information: Obtained, Reviewed and Signed Post Discharge Appointments Primary Care Physician Name Of Family Doctor: Dr. Myers Primary Care Date of Appointment with PCP: 10/15/20 Time of Appointment with PCP: 4pm Provider Appointment Comment: in person follow up, Kaitlyn Francisco office of [facility] Primary Care Release of Information: Obtained, Reviewed and Signed Smoking Cessation Counseling Tobacco Cessation Medication Prescribed at Discharge: Not Applicable/Non-Smoker Contact Information Discharge Discharge Address: [address] [place] [id number] Discharge Plan Discharge Items Patient Disposition: Home - Self-Care Reason For Visit: DEPRESSION Discharge Diagnosis: major depressive disorder Condition on Discharge: Good Goals: stay compliant with medication and outpatient followup Activity: Resume your previous activity Bathing: No limitations Sexual Activity: When tolerated Exercise/Sports: As tolerated Driving/Machine Use: No limitations Weightbearing: Full weightbearing Non-emergency contact: Primary Care Provider, Psychiatrist and Therapist Call non-emergency contact if: you have any medication questions and your symptoms worsen Follow-up/Referrals: Dayron Myers MD [Primary Care Provider] - Diet: Regular Addtl Attending Provider Instructions: SPECIAL CARE INSTRUCTIONS: 1. Follow through with your scheduled aftercare appointments. If unable to keep an appointment, please call to reschedule. 2. Take your medication only as prescribed. Medication should not be changed or stopped without the approval of your doctor. In the event of worsening symptoms or concerns about side effects, contact your doctor immediately. 3. Utilize new healthy coping skills, anger management skills, and stress management skills learned during your hospitalization. Journal feelings and process them with a support person. Identify stressors or situations that may result in relapse, deterioration or inappropriate behaviors and develop a plan to deal with those issues. 4. If your coping skills are ineffective and you are in crisis, contact your outpatient providers for direction. If unable to reach your providers, please call the [facility] CRISIS LINE AT , go to the [facility] walk-in center at [address], [place], or go to the closest Emergency Room. 5. Avoid alcohol and un-prescribed drugs. 6. You have been provided with the Mental Health Advance Directives Pamphlet for your review. AFTERCARE APPOINTMENTS: * Please call your insurance company prior to your scheduled appointment to confirm your aftercare providers are covered. Take your insurance information to your appointments. WHO TO CALL AND WHEN: Medical Emergencies: For questions or emergencies related to your hospital stay, please contact the Inpatient Behavioral Health Unit at [phone]. A music industry internship is on-call 26/12 for the Behavioral Health Unit for emergencies At any time you feel your situation is an emergency, you may also call 911 immediately. Pending Studies at Discharge: No Stand-Alone Forms: My [facility], Smoking Cessation Medications and DC Order Prescriptions: New aripiprazole [Abilify] 5 mg Tablet 5 mg PO QAM 30 Days Qty: 30 RF: 0 quetiapine 25 mg Tablet 25 mg PO Q6 PRN (Reason: insomnia) Qty: 30 RF: 0 clonazepam 1 mg Tablet 3 mg PO HS Qty: 0 RF: 0 benztropine 0.5 mg Tablet 0.5 mg PO Q6 PRNQty: 0 RF: 0 famotidine 20 mg Tablet 20 mg PO DAILY Qty: 0 RF: 0 oxymetazoline [Nasal Potosi (oxymetazoline)] 0.05 % Potosi,Non-Aerosol 1 spray NA BID PRNQty: 0 RF: 0 sodium chloride [Saline Mist] 0.65 % Aerosol,Potosi 1 - 2 spray NA PRN PRNQty: 0 RF: 0 bismuth subsalicylate [Kaopectate (bismuth subsalicy)] 262 mg/15 mL Suspension 15 ml PO PRN PRNQty: 0 RF: 0 Discontinued azelastine 0.15 % (205.5 mcg) spray,non-aerosol 2 spray INTNAS BID Qty: 30 RF: 3 clonazepam 1 mg tablet 3 mg PO .COMPLEX Qty: 90 RF: 0 dextroamphetamine-amphetamine 20 mg tablet 40 mg PO DAILY RF: 0 famotidine 20 mg Tablet 20 mg PO DAILY RF: 0 diphenhydramine HCl [Benadryl] 25 mg Capsule 25 mg PO Q6H PRN (Reason: Allergy Symptoms) RF: 0 loratadine 10 mg Tablet 10 mg PO DAILY RF: 0 Afrin (oxymetazoline) 0.05 % Drops INTRANASAL RF: 0 Discharge Orders: Discharge Order (Routine); Ordered 10/08/20 Ordered By: Albert Crane Admission Data Admit Date/Time: 10/02/20 19:43 Attending Provider: Lyndsey Chatterjee Admit Provider: Lyndsey Chatterjee Primary Care Provider: Dayron Myers Other Interventions: Discharge Summary Assessment (RN) Last Done: 10/08/20 11:57 PSY Interdisciplinary Discharge Planning Last Done: 10/08/20 12:25 Coding Level of Care Code 13280 D/C day mgmt > 30 min Diagnoses Depression F32.9 Depression Type: unspecified Allergic rhinitis J30.9 Sleep terror disorder F51.4 Weight loss, unintentional R63.4
== END 2020-10-08 13:43 | disposition home or self-care (01) | DRG 881 ==
LOC: ED 15:01 → 3S 19:43
DX: F51.4 Sleep terrors [night terrors]; R63.4 Abnormal weight loss; F32.9 Major depressive disorder, single episode, unspecified; J30.9 Allergic rhinitis, unspecified

== ENCOUNTER 2021-01-10 10:42 | Inpatient (IN) ==
[2021-01-10 12:10] LABS: Basophils # (auto) 0.03 K/uL (0-0.2); Basophils % (auto) 0.4 %; Eosinophils # (auto) 0.17 K/uL (0-0.5); Hematocrit (blood only) 42.1 % (42-52); Immature Granulocytes # (auto) 0.01 K/uL (0.00-0.02); Immature Granulocytes % (auto) 0.1 %; Lymphocytes # (auto) 1.48 K/uL (1.2-3.4); Lymphocytes % (auto) 17.7 %; Mean Corpuscular Hgb Conc 33.3 g/dL (32-36); Mean Corpuscular Volume 90.1 fL (80-100); Mean Platelet Volume 9.9 fL (7.4-10.4); Neutrophils # (auto) 6.16 K/uL (1.4-6.5); Neutrophils % (auto) 73.8 %; Platelet Count 294 K/uL (130-400); RDW Coefficient of Variation 14.1 % (11.5-14.5); RDW Standard Deviation 46.4 fL (36.4-46.3); Red Blood Count 4.67 M/uL (4.7-6.1); White Blood Count 8.35 K/uL (4.8-10.8)
[2021-01-10 12:30] LABS: Albumin Level 3.2 gm/dl (3.4-5.0); Calcium 8.7 mg/dl (8.5-10.1); Creatinine Clr Calc Pharmacy 84.6 ml/min; Est GFR (African American) 88.8 ml/min; Est GFR (Non-African American) 76.7 ml/min; Magnesium 2.4 mg/dl (1.8-2.4)
--- NOTE | 2021-01-10 12:30 | Emergency Department Note ---
Impression & Plan Mass of right kidney, Depression, Confusion ED Provider Note Provider: Eren Mancia MD DATE OF SERVICE: 01/10/2021 CHIEF COMPLAINT: Weight loss, depression HISTORY OF PRESENT ILLNESS: Patient is a 55-year-old gentleman history of depression presenting today with his son from home reporting he is feeling quite depressed. There is also reports the patient's lost about [address] 6 months. Patient states that he just does not feel hungry. He denies nausea vomiting or diarrhea. Denies abdominal pain or chest pain. Denies headache or visual change or dizziness. Patient was hospitalized here briefly at the end of September and October in the psychiatric unit with severe depression. Evidently improved after that and then went to live with his brother in [place]. Was doing fairly well but has had a somewhat gradual decline especially since returning to the local area to live with his parents over the past 6 weeks. Patient briefly saw his PCP here in October but per his report has not had significant follow-up in [place] due to insurance issues. Patient states that he does not do much during the day and patient son reports that he has no interest in anything. Their questions by the patient's brother if the patient has been compliant with his home medications. Has recently established with mental health services in this area and has been switched to Klonopin, Tegretol, and Seroquel. Patient states that he is not been sleeping but does not feel tired. Patient son reports he has lack of interest in things and is not caring for himself well. Has been living with his father by family report. Their questions at the patient again has been taking his medications as directed. Patient states that he is now having thoughts about wanting to end his life but does not have a clear plan or acted to do so. No fights or homicidal ideation reported. No hallucinations reported. Family has concerns that there is an organic medical process occurring and brought him here for further evaluation today. No numbness or weakness reported in the extremities or myalgias. No fever or chills reported. REVIEW OF SYSTEMS: A total of 10 review of systems was obtained and negative except as stated above in the HPI. PAST MEDICAL HISTORY: As noted above MEDICATIONS: Reviewed home medication list SOCIAL HISTORY: Currently residing at home with father, no drug or alcohol iss ues reported. Non-smoker PHYSICAL EXAM: GENERAL: alert and oriented in no acute distress on stretcher sitting Head: normocephalic and atraumatic EYES: No injection, discharge or icterus. PERRL NECK: Trachea midline. Supple. ENT: Mucous membranes pink and moist. Pharynx without erythema or exudate. LUNGS: Airway patent. No retractions. Breath sounds clear HEART: Regular rate and rhythm. No chest wall tenderness ABDOMEN: Soft and non-tender, without guarding or rebound. SKIN: Acyanotic, warm, dry, without rashes EXTREMITIES: Without swelling, tenderness or deformity NEUROLOGICAL: No focal deficits. No aphasia. No facial droop or slurred speech. Normal strength and tone in the extremities. Sensation to gross touch normal. Ambulatory. Psych: Patient is with a severely flattened affect and mostly answers questions in 1 or 2 word responses. Endorses depression with thoughts about wanting not to be alive but denies acting on this or having a plan. Denies any homicidal ideation. Not reacting to external stimuli. EK bpm normal sinus rhythm with some baseline artifact. No acute ST segment elevation or depression noted with some inferior T wave inversions noted. QTc 449. CONTINUOUS CARDIAC MONITORING: was ordered and showed a heart rate of 60-90s bpm in normal sinus rhythm Patient's laboratory studies and imaging reviewed. Differential includes Mood disorder, infection, hypoglycemia, electrolyte abnormalities, cardiac sources, intracerebral event, toxicologic, trauma, neurologic, as well as other pathologies. IMPRESSION/MEDICAL DECISION MAKING: Patient presents with decline over the past approximately 5 to 6 weeks of mood and interest with weight loss. Due to insurance reasons has not had significant outpatient follow-up as he has been out of state. Question if he has been medically compliant with medications. No focal neurological deficit noted the patient denies any significant numbness, weakness, dizziness, or visual changes. Patient denies pain to me. Patient denies a history of drug or alcohol abuse. Patient does endorse depression with thoughts of not wanting to be alive. Family is concerned if organic medical process is ongoing. Do not believe this is meningitis and do not believe that he requires a lumbar puncture in discussio n with family members who asked for such. CT the head as well as CT abdomen pelvis was completed to exclude space-occupying mass or other possible mass to explain his weight loss. Discussion with the patient it sounds like he is not eating very much at all. Basic labs were obtained including thyroid function. Normal white counts and hemoglobin and platelets. No severe electrolyte abnormality noted. Creatinine within normal limits. No transaminitis noted. No detectable alcohol level today. Thyroid function within normal limits. Salicylate, acetaminophen, and carbamazepine levels are undetectable. Again met history questions if he should be on carbamazepine aced on prescribing history. Again raises the question of medication compliance. Doubt this is cardiac in nature. Patient does NOT appear septic. Question if his underlying psychiatric illness may be causing his decreased intake and mood changes. Imaging of the head without significant findings noted per radiology report. There was a note of a 6 cm mass in the right upper pole of the kidney questioning RCC but no other evidence of metastatic disease is noted here with an indeterminate cortical hypodensity in the left kidney. This itself may very well be significantly contributing to his weight loss however again some component of mood disorder I believe is present. Patient has been testing nursing staff repetitively who the doctor is on what is going on and does not know why he is here today. Discussed with the patient and his son these findings today as well as the patient's brother. Do not believe the patient currently has capacity to sign himself in is a 201 and do not have 302 grounds. Does have significant depression. In discussion with family and the patient was agreeable with further evaluation here and patient's brother in particular wished for that. Feel that given his confusion feel this would be reasonable. Patient was ambivalent but agreeable for this. Will need follow-up regarding the renal mass but unsure how well he is able to take care of himself at home in the current time. The hospitalist was contacted. DIAGNOSIS: Unintentional weight loss, depression, renal mass, confusion DISPOSITION: Hospitalist will evaluate Patient was agreeable with this plan. 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 Beliefs That Will Affect Care: None marital status: Current Living Situation: Alone Feels Safe at Home: Yes Assistive Devices: CPAP and Glasses Allergies Allergies Allergy/AdvReac Type Severity Reaction Status Date / Time hydrocodone AdvReac Intermediate BECOMES Verified 01/10/21 14:23 MANIC naproxen AdvReac Mild RECTAL Verified 01/10/21 14:23 BLEEDING WITH EXTENDED USE Home Meds Home Medications Medication Instructions Recorded Confirmed carbamazepine 200 mg tablet 200 mg PO BID 01/10/21 01/10/21 clonazepam 1 mg tablet 1 mg PO HS 01/10/21 01/10/21 mirtazapine 30 mg tablet 30 mg PO HS 01/10/21 01/10/21 quetiapine 200 mg tablet 200 mg PO HS 01/10/21 01/10/21 quetiapine 25 mg tablet 25 mg PO BID 01/10/21 01/10/21 sodium chloride 0.65 % nasal spray 1 - 2 spray NA PRN PRN 01/10/21 01/10/21 aerosol (Saline Mist) Previous Rx's Medication Instructions Recorded bismuth subsalicylate 262 mg/15 mL 15 ml PO PRN PRN #0 ml 10/08/20 oral suspension (Kaopectate (bismuth subsalicylate)) famotidine 20 mg tablet 20 mg PO DAILY #0 tab 10/08/20 oxymetazoline 0.05 % nasal spray 1 spray NA BID PRN #0 ml 10/08/20 (Nasal Avoca (oxymetazoline)) Results & Data (ED) Vital Signs Vital Signs - 24 hr 01/10/21 10:50 01/10/21 11:06 01/10/21 13:07 Temperature 36.9 C 36.3 C L Temperature Source Temporal Artery Scan Oral Pulse Rate 75 Pulse Rate [Apical] 81 62 Pulse Rhythm Regular Pulse Rhythm [Apical] Regular Regular Pulse Strength Normal Pulse Strength [Apical] Normal Normal Respiratory Rate 18 16 17 Respiratory Effort / Characteristics Non-Labored Spontaneous Non-Labored Non-Labored Respiratory Depth Normal Normal Normal Respiratory Pattern Regular Regular Blood Pressure 156/89 H Blood Pressure [Right Arm] 152/87 H 145/91 H Blood Pressure Mean 111 Blood Pressure Mean [Right Arm] 108 109 Blood Pressure Position Sitting Pulse Oximetry 97 97 99 Oxygen Delivery Method Room Air Room Air Room Air Sepsis Recent Fever Within 48 Hours No Sepsis New/Unexplained Change in Mental Status N/A Sepsis Action Taken by Nursing No Action Required Laboratory Data Result diagrams: 01/10/21 11:55 01/10/21 11:55 Lab Results 01/10/21 01/10/21 01/10/21 Range/Units 11:55 11:55 11:55 WBC 8.35 (4.8-10.8) K/uL RBC 4.67 L (4.7-6.1) M/uL Hgb 14.0 (14.0-18.0) g/dL Hct 42.1 (42-52) % MCV 90.1 (80-100) fL MCH 30.0 (25-34) pg MCHC 33.3 (32-36) g/dL RDW Std Deviation 46.4 H (36.4-46.3) fL RDW Coeff of Peter 14.1 (11.5-14.5) % Plt Count 294 (130-400) K/uL MPV 9.9 (7.4-10.4) fL Immature Gran % (Auto) 0.1 % Neut % (Auto) 73.8 % Lymph % (Auto) 17.7 % Ransom % (Auto) 6.0 % Eos % (Auto) 2.0 % Baso % (Auto) 0.4 % Neut # (Auto) 6.16 (1.4-6.5) K/uL Lymph # (Auto) 1.48 (1.2-3.4) K/uL Ransom # (Auto) 0.50 (0.11-0.59) K/uL Eos # (Auto) 0.17 (0-0.5) K/uL Baso # (Auto) 0.03 (0-0.2) K/uL Immature Gran # (Auto) 0.01 (0.00-0.02) K/uL Sodium 137 (136-145) mmol/L Potassium 4.0 (3.5-5.1) mmol/L Chloride 109 H (98-107) mmol/L Carbon Dioxide 28 (21-32) mmol/L Anion Gap 0 L (3-11) BUN 11 (7-18) mg/dl Creatinine 1.07 (0.6-1.4) mg/dl Est Cr Clr Drug Dosing 84.6 ml/min Est GFR ( Amer) 88.8 ml/min Est GFR (Non-Af Amer) 76.7 ml/min BUN/Creatinine Ratio 10.0 (10-20) Glucose 95 (70-99) mg/dl Calcium 8.7 (8.5-10.1) mg/dl Magnesium 2.4 (1.8-2.4) mg/dl Total Bilirubin 0.4 (0.2-1) mg/dl AST 13 L (15-37) U/L ALT 22 (12-78) U/L Alkaline Phosphatase 76 (45-117) U/L Total Protein 7.2 (6.4-8.2) gm/dl Albumin 3.2 L (3.4-5.0) gm/dl Globulin 4.0 (2.5-4.0) gm/dl Albumin/Globulin Ratio 0.8 L (0.9-2) TSH 0.941 (0.300-4.500) uIu/ml Salicylates < 1.7 L (2.8-20) mg/dl Acetaminophen < 2 L (10-30) ug/ml Carbamazepine < 0.5 L (4-12) mcg/ml Ethyl Alcohol mg/dL (0-3) mg/dl COVID-19 Eval Order SARS-CoV-2 (PCR) (Negative) 01/10/21 01/10/21 01/10/21 Range/Units 11:55 12:39 12:39 WBC (4.8-10.8) K/uL RBC (4.7-6.1) M/uL Hgb (14.0-18.0) g/dL Hct (42-52) % MCV (80-100) fL MCH (25-34) pg MCHC (32-36) g/dL RDW Std Deviation (36.4-46.3) fL RDW Coeff of Peter (11.5-14.5) % Plt Count (130-400) K/uL MPV (7.4-10.4) fL Immature Gran % (Auto) % Neut % (Auto) % Lymph % (Auto) % Ransom % (Auto) % Eos % (Auto) % Baso % (Auto) % Neut # (Auto) (1.4-6.5) K/uL Lymph # (Auto) (1.2-3.4) K/uL Ransom # (Auto) (0.11-0.59) K/uL Eos # (Auto) (0-0.5) K/uL Baso # (Auto) (0-0.2) K/uL Immature Gran # (Auto) (0.00-0.02) K/uL Sodium (136-145) mmol/L Potassium (3.5-5.1) mmol/L Chloride (98-107) mmol/L Carbon Dioxide (21-32) mmol/L Anion Gap (3-11) BUN (7-18) mg/dl Creatinine (0.6-1.4) mg/dl Est Cr Clr Drug Dosing ml/min Est GFR ( Amer) ml/min Est GFR (Non-Af Amer) ml/min BUN/Creatinine Ratio (10-20) Glucose (70-99) mg/dl Calcium (8.5-10.1) mg/dl Magnesium (1.8-2.4) mg/dl Total Bilirubin (0.2-1) mg/dl AST (15-37) U/L ALT (12-78) U/L Alkaline Phosphatase (45-117) U/L Total Protein (6.4-8.2) gm/dl Albumin (3.4-5.0) gm/dl Globulin (2.5-4.0) gm/dl Albumin/Globulin Ratio (0.9-2) TSH (0.300-4.500) uIu/ml Salicylates (2.8-20) mg/dl Acetaminophen (10-30) ug/ml Carbamazepine (4-12) mcg/ml Ethyl Alcohol mg/dL < 3.0 (0-3) mg/dl COVID-19 Eval Order Covid19 at [facility] SARS-CoV-2 (PCR) NEGATIVE (Negative) Administered Medications Discontinued Medications Ioversol (Optiray 320 100ml) 94 ml IV ONCE ONE Stop: 01/10/21 12:43 Last Admin: 01/10/21 12:42 Dose: 94 ml Documented by: [id number] Imaging Data Radiologist's Impression: Abdomen/Pelvis CT 01/10/21 11:26 CT SCAN OF THE ABDOMEN AND PELVIS WITH IV CONTRAST CLINICAL HISTORY: Fatigue. Weight loss. COMPARISON STUDY: No priors. TECHNIQUE: Following the IV administration of 94 cc of Optiray 320, CT scan of the abdomen and pelvis is performed from the lung bases to the proximal femora. Images are reviewed in the axial, sagittal, and coronal planes. IV contrast was administered without complication. A dose lowering technique was utilized adhering to the principles of ALARA. CT DOSE: 666.01 mGy.cm FINDINGS: Lung bases: The heart is enlarged and without pericardial effusion. There are calcified granulomas at the medial left lung base. The lung bases are otherwise clear. A small hiatal hernia is noted. There are calcified inferior mediastinal nodes. Liver: The contrast-enhanced liver is normal in size and contour. The liver demonstrates diffusely diminished attenuation consistent with hepatic steatosis. Fatty sparing is noted adjacent to gallbladder fossa. There is no intrahepatic biliary ductal dilatation. The hepatic veins and portal veins are patent. Gallbladder: Unremarkable. Spleen: Normal in size and attenuation. Pancreas: Unremarkable. Adrenal glands: Unremarkable. Kidneys: The contrast enhanced kidneys are normal in size and without hydronephrosis. The kidneys enhance symmetrically. There is a 6.0 x 5.8 x 4.7 cm heterogeneous mass arising from the upper pole of the right kidney. This is seen on image #160. There is no clear evidence of right renal vein invasion. No additional enhancing lesion is identified in either kidney. A 1.3 cm indeterminant cortical hypodensity is seen in the left upper pole on image #124. Abdominal vasculature: The abdominal aorta is normal in course and caliber noting mild atherosclerotic calcification. Bowel: There is mild to moderate colonic diverticulosis without CT evidence of acute diverticulitis. Fecal retention is seen throughout the colon. No bowel obstruction is identified. A small duodenal diverticulum is noted. The appendix is well-visualized and normal. Peritoneum: There is no intraperitoneal free air or abdominal ascites. There is a fat-containing umbilical hernia. Lymphadenopathy: A 7 mm portacaval node on image #123 is indeterminant. No retroperitoneal lymphadenopathy is identified. Pelvic viscera: The prostate gland is enlarged and heterogeneous noting median lobe hypertrophy. The bladder is distended. The wall is mildly thickened and trabeculated indicating chronic outlet obstruction. Skeletal structures: No lytic or blastic lesions are seen. There is mild lumbosacral spondylosis. Advanced sclerotic change is noted in the sacroiliac joints. IMPRESSION: 1. There is a 6.0 cm heterogeneous mass lesion in the upper pole of the right kidney as detailed above. This should be considered renal cell carcinoma until proven otherwise. Follow-up with urology is recommended. 2. There is no evidence of metastatic disease in the abdomen or pelvis. 3. No additional enhancing cortical lesion is clearly identified. 4. A 1.3 cm indeterminate cortical hypodensity is seen in the upper pole of the left kidney. This can be further evaluated with a nonemergent contrast-enhanced renal protocol MRI 5. Hepatic steatosis. 6. Cardiomegaly. 7. Colonic diverticulosis without CT evidence of acute diverticulitis. 8. Additional findings as above. ACT 112: Positive. There are findings on this exam that require communication between the performing entity and the patient following Patient Test Result Information Act ([place] Act 112) guidelines. Electronically signed by: Papa Flores M.D. 01/10/2021 1:[address] 01/10/21 11:26 CT SCAN OF THE BRAIN WITHOUT IV CONTRAST CLINICAL HISTORY: Fatigue. Mood change. Weight loss. COMPARISON STUDY: MRI of the brain dated 11/28/2013. TECHNIQUE: Unenhanced axial CT scan of the brain is performed from the vertex to the skull base. A dose lowering technique was utilized adhering to the principles of ALARA. CT DOSE: 537.48 mGy.cm FINDINGS: Brain parenchyma: There is mild microangiopathic change. The brain parenchyma is otherwise normal in appearance. There is no hemorrhage, mass effect, or evidence of acute territorial ischemia by CT criteria. Prado-white matter differentiation is preserved. No extra-axial fluid collection is seen. Mineralization is noted in the basal ganglia. Ventricles, sulci, cisterns: Normal in configuration. Intracranial vasculature: The visualized intracranial vasculature at the skull base is normal in appearance. Calvarium: Unremarkable. Sinuses and mastoids: The visualized paranasal sinuses are clear. The mastoid air cells are well pneumatized. Orbits: The bony orbits are grossly intact. IMPRESSION: No acute intracranial abnormality. ACT 112: Negative or not required by law. Electronically signed by: Papa Flores M.D. 01/10/2021 12:59 PM Chest X-Ray 01/10/21 11:27 SINGLE VIEW CHEST CLINICAL HISTORY: Fatigue. Weight loss. FINDINGS: An AP, portable, upright chest radiograph is compared to study dated 05/02/2018.. The heart is enlarged. The pulmonary vasculature is noncongested. Atelectasis is noted at the lung bases. The lungs and pleural spaces are other nelson clear. No pneumothorax is seen. The bony thorax is grossly intact. IMPRESSION: Cardiomegaly with no active disease in the chest. ACT 112: Negative or not required by law. Electronically signed by: Papa Flores M.D. 01/10/2021 1:14 PM Discharge Plan Visit Data Chief Complaint: Illness Stated Complaint: LOST 60 POUNDS IN 8 MONTHS,DEPRESSION ED Provider: Eren Mancia Discharge Problem: Mass of right kidney, Depression, Confusion Patient Disposition: Being Evaluated by Hospitalist Forms Stand Alone Forms: My [facility] [place] [employer] Prescriptions Prescriptions: No Action famotidine 20 mg Tablet 20 mg PO DAILY Qty: 0 RF: 0 oxymetazoline [Nasal [place] (oxymetazoline)] 0.05 % [place],Non-Aerosol 1 spray NA BID PRNQty: 0 RF: 0 bismuth subsalicylate [Kaopectate (bismuth subsalicy)] 262 mg/15 mL Suspension 15 ml PO PRN PRNQty: 0 RF: 0 mirtazapine 30 mg tablet 30 mg PO HS RF: 0 quetiapine 25 mg tablet 25 mg PO BID RF: 0 carbamazepine 200 mg tablet 200 mg PO BID RF: 0 clonazepam 1 mg tablet 1 mg PO HS RF: 0 sodium chloride [Saline Mist] 0.65 % aerosol,spray 1 - 2 spray NA PRN PRN (Reason: Nasal Congestion) RF: 0 quetiapine 200 mg tablet 200 mg PO HS RF: 0 Referrals Referrals: Pro,Dayron Zamora MD [Primary Care Provider] -
[2021-01-10 12:41] LABS: Albumin Globulin Ratio 0.8 (0.9-2); Bilirubin,Total 0.4 mg/dl (0.2-1); Thyroid Stimulating Hormone 0.941 uIu/ml (0.300-4.500); Total Protein 7.2 gm/dl (6.4-8.2)
[2021-01-10] MEDS ORDERED: OPTIRAY 320 100ml IV ONE (12:42)
[2021-01-10 12:52] LABS: Acetaminophen < 2 ug/ml (10-30)
[2021-01-10 12:58] LABS: Carbamazepine Tegretol < 0.5 mcg/ml (4-12); Salicylate < 1.7 mg/dl (2.8-20)
--- NOTE | 2021-01-10 13:00 | CT Scan Report ---
CT SCAN OF THE BRAIN WITHOUT IV CONTRAST CLINICAL HISTORY: Fatigue. Mood change. Weight loss. COMPARISON STUDY: MRI of the brain dated 11/28/2013. TECHNIQUE: Unenhanced axial CT scan of the brain is performed from the vertex to the skull base. A d ose lowering technique was utilized adhering to the principles of ALARA. CT DOSE: 537.48 mGy.cm FINDINGS: Brain parenchyma: There is mild microangiopathic change. The brain parenchyma is otherwise normal in appearance. There is no hemorrhage, mass effect, or evidence of acute territorial ischemia by CT crit eria. Prado-white matter differentiation is preserved. No extra-axial fluid collection is seen. Minera lization is noted in the basal ganglia. Ventricles, sulci, cisterns: Normal in configuration. Intracranial vasculature: The visualized intracranial vasculature at the skull base is normal in appe arance. Calvarium: Unremarkable. Sinuses and mastoids: The visualized paranasal sinuses are clear. The mastoid air cells are well pneu matized. Orbits: The bony orbits are grossly intact. IMPRESSION: No acute intracranial abnormality. ACT 112: Negative or not required by law. Electronically signed by: Papa Flores M.D. 01/10/2021 12:59 PM
--- NOTE | 2021-01-10 13:15 | XRay Report ---
SINGLE VIEW CHEST CLINICAL HISTORY: Fatigue. Weight loss. FINDINGS: An AP, portable, upright chest radiograph is compared to study dated 05/02/2018.. The heart is enlarged. The pulmonary vasculature is noncongested. Atelectasis is noted at the lung bases. The lungs and pleural spaces are otherwise clear. No pneumothorax is seen. The bony thorax is grossly int act. IMPRESSION: Cardiomegaly with no active disease in the chest. ACT 112: Negative or not required by law. Electronically signed by: Papa Flores M.D. 01/10/2021 1:14 PM
--- NOTE | 2021-01-10 13:29 | CT Scan Report ---
CT SCAN OF THE ABDOMEN AND PELVIS WITH IV CONTRAST CLINICAL HISTORY: Fatigue. Weight loss. COMPARISON STUDY: No priors. TECHNIQUE: Following the IV administration of 94 cc of Optiray 320, CT scan of the abdomen and pelvi s is performed from the lung bases to the proximal femora. Images are reviewed in the axial, sagittal , and coronal planes. IV contrast was administered without complication. A dose lowering technique wa s utilized adhering to the principles of ALARA. CT DOSE: 666.01 mGy.cm FINDINGS: Lung bases: The heart is enlarged and without pericardial effusion. There are calcified granulomas at the medial left lung base. The lung bases are otherwise clear. A small hiatal hernia is noted. There are calcified inferior mediastinal nodes. Liver: The contrast-enhanced liver is normal in size and contour. The liver demonstrates diffusely di minished attenuation consistent with hepatic steatosis. Fatty sparing is noted adjacent to gallbladde r fossa. There is no intrahepatic biliary ductal dilatation. The hepatic veins and portal veins are p atent. Gallbladder: Unremarkable. Spleen: Normal in size and attenuation. Pancreas: Unremarkable. Adrenal glands: Unremarkable. Kidneys: The contrast enhanced kidneys are normal in size and without hydronephrosis. The kidneys enh ance symmetrically. There is a 6.0 x 5.8 x 4.7 cm heterogeneous mass arising from the upper pole of t he right kidney. This is seen on image #160. There is no clear evidence of right renal vein invasion. No additional enhancing lesion is identified in either kidney. A 1.3 cm indeterminant cortical hypod ensity is seen in the left upper pole on image #124. Abdominal vasculature: The abdominal aorta is normal in course and caliber noting mild atheroscleroti c calcification. Bowel: There is mild to moderate colonic diverticulosis without CT evidence of acute diverticulitis. Fecal retention is seen throughout the colon. No bowel obstruction is identified. A small duodenal di verticulum is noted. The appendix is well-visualized and normal. Peritoneum: There is no intraperitoneal free air or abdominal ascites. There is a fat-containing umbi lical hernia. Lymphadenopathy: A 7 mm portacaval node on image #123 is indeterminant. No retroperitoneal lymphadeno celestina is identified. Pelvic viscera: The prostate gland is enlarged and heterogeneous noting median lobe hypertrophy. The bladder is distended. The wall is mildly thickened and trabeculated indicating chronic outlet obstruc tion. Skeletal structures: No lytic or blastic lesions are seen. There is mild lumbosacral spondylosis. Adv anced sclerotic change is noted in the sacroiliac joints. IMPRESSION: 1. There is a 6.0 cm heterogeneous mass lesion in the upper pole of the right kidney as detailed abov e. This should be considered renal cell carcinoma until proven otherwise. Follow-up with urology is r ecommended. 2. There is no evidence of metastatic disease in the abdomen or pelvis. 3. No additional enhancing cortical lesion is clearly identified. 4. A 1.3 cm indeterminate cortical hypodensity is seen in the upper pole of the left kidney. This can be further evaluated with a nonemergent contrast-enhanced renal protocol MRI 5. Hepatic steatosis. 6. Cardiomegaly. 7. Colonic diverticulosis without CT evidence of acute diverticulitis. 8. Additional findings as above. ACT 112: Positive. There are findings on this exam that require communication between the performing entity and the patient following Patient Test Result Information Act ([place] Act 112) guidelines. Electronically signed by: Papa Flores M.D. 01/10/2021 1:28 PM
--- NOTE | 2021-01-10 15:39 | History & Physical Report ---
Date of Service January 10, 2021 Assessment & Plan (1) Mass of right kidney: Plan: MRI abdomen pelvis with contrast -Urology consult: Dr. Noah jimenes (2) Confusion: Plan: MRI brain with and without contrast -Neurology consult Dr. Jennifer jimenes, Dr. Jean to see in the morning (3) Weight loss, unintentional: Plan: Suspect secondary to renal mass (4) Depression: Plan: Continue current medication regimen History of Present Illness Chief Complaint: Short-term memory loss and personality changes Primary Care Provider: Dayron Myers MD Patient is a 55-year-old male who is brought in by his physician brother for short-term memory issues and a 65 pound weight loss. In September of this year the patient presented to [facility] emergency department with a complaint for depression, at that time he attempted to climb [place] to induce a medical emergency to which he would pass away from. He was seen in the emergency department and was evaluated by psychiatry. Most recently the patient was with his brother who is a physician in [place], Mauri Sales MD ([email or web address])) and was also seen by additional family members who are also healthcare providers and felt that the patient was significantly off from his normal baseline. His the patient's son is leaving for college education, th e patient had been residing with his 90+-year-old father who is unable to care for the patient, the patient's brother will be leaving in the next 1 to 2 days and they felt it was unsafe for him to be at home as he has had several issues with short-term memory. During evaluation today in the emergency department he did not have any symptomatic complaints, no chest pain, shortness of breath, abdominal pain, change in bowel habits, diarrhea, constipation. His laboratory analysis was largely unremarkable, they did obtain a CT scan of the head and abdomen pelvis CT head was unremarkable in the abdomen pelvis that found a 6 cm lesion concerning for renal cell carcinoma Allergies Allergy/AdvReac Type Severity Reaction Status Date / Time hydrocodone AdvReac Intermediate BECOMES Verified 01/10/21 14:23 MANIC naproxen AdvReac Mild RECTAL Verified 01/10/21 14:23 BLEEDING WITH EXTENDED USE Home Medications Medication Instructions Recorded Confirmed Type bismuth subsalicylate 262 mg/15 mL 15 ml PO PRN PRN #0 ml 10/08/20 01/10/21 Rx oral suspension (Kaopectate (bismuth subsalicylate)) famotidine 20 mg tablet 20 mg PO DAILY #0 tab 10/08/20 01/10/21 Rx oxymetazoline 0.05 % nasal spray 1 spray NA BID PRN #0 ml 10/08/20 01/10/21 Rx (Nasal [place] (oxymetazoline)) carbamazepine 200 mg tablet 200 mg PO BID 01/10/21 01/10/21 History clonazepam 1 mg tablet 1 mg PO HS 01/10/21 01/10/21 History mirtazapine 30 mg tablet 30 mg PO HS 01/10/21 01/10/21 History quetiapine 200 mg tablet 200 mg PO HS 01/10/21 01/10/21 History quetiapine 25 mg tablet 25 mg PO BID 01/10/21 01/10/21 History sodium chloride 0.65 % nasal spray 1 - 2 spray NA PRN PRN 01/10/21 01/10/21 History aerosol (Saline Mist) Past Med/Surg History Medical History Cluster headache Medial meniscus tear Surgical History H/O arthroscopic knee surgery History of rotator cuff surgery Family History Mother Lymphoma Father Prostate cancer Grandmother (Maternal) Hypertension Other Diabetes Social History Smoking Status: Never smoker Preferred Language: Tajik Communication Ability: Effective Fuel Verification Technician Required: No Beliefs That Will Affect Care: None marital status: Current Living Situation: Alone Feels Safe at Home: Yes Assistive Devices: CPAP and Glasses Review of Systems Review of Systems: A 10 point review of systems has been obtained and is otherwise negative including those systems which are marked in the HPI Physical Exam Physical Exam: General: Alert. Avoiding eye contact in exam room. Skin: Warm, dry, Head: Atraumatic Ears, nose, mouth and throat: airway patent Cardiovascular: Normal peripheral perfusion Respiratory: no respiratory distress Gastrointestinal: Non distended Musculoskeletal: No deformity Neuro: Extraocular muscles are intact pupils equal round reactive to light and accommodation, no pronator drift, negative Romberg, normal finger-nose cerebellar function Mini mental status exam: Unable to remember third item from pinball tree upon repeat questioning Results & Data Results & Data ([facility]) Vital Signs (Past 12 Hours) Vital Signs Temp Pulse Pulse Resp BP BP Pulse Ox 01/10/21 15:00 68 18 167/108 H 97 01/10/21 13:07 62 17 145/91 H 99 01/10/21 11:06 36.3 C L 81 16 152/87 H 97 01/10/21 10:50 36.9 C 75 18 156/89 H 97 Laboratory Results 01/10/21 01/10/21 01/10/21 Range/Units 12:39 12:39 11:55 WBC (4.8-10.8) K/uL RBC (4.7-6.1) M/uL Hgb (14.0-18.0) g/dL Hct (42-52) % MCV (80-100) fL MCH (25-34) pg MCHC (32-36) g/dL RDW Std Deviation (36.4-46.3) fL RDW Coeff of Peter (11.5-14.5) % Plt Count (130-400) K/uL MPV (7.4-10.4) fL Immature Gran % (Auto) % Neut % (Auto) % Lymph % (Auto) % Ralls % (Auto) % Eos % (Auto) % Baso % (Auto) % Neut # (Auto) (1.4-6.5) K/uL Lymph # (Auto) (1.2-3.4) K/uL Ralls # (Auto) (0.11-0.59) K/uL Eos # (Auto) (0-0.5) K/uL Baso # (Auto) (0-0.2) K/uL Immature Gran # (Auto) (0.00-0.02) K/uL Sodium (136-145) mmol/L Potassium (3.5-5.1) mmol/L Chloride (98-107) mmol/L Carbon Dioxide (21-32) mmol/L Anion Gap (3-11) BUN (7-18) mg/dl Creatinine (0.6-1.4) mg/dl Est Cr Clr Drug Dosing ml/min Est GFR ( Amer) ml/min Est GFR (Non-Af Amer) ml/min BUN/Creatinine Ratio (10-20) Glucose (70-99) mg/dl Calcium (8.5-10.1) mg/dl Magnesium (1.8-2.4) mg/dl Total Bilirubin (0.2-1) mg/dl AST (15-37) U/L ALT (12-78) U/L Alkaline Phosphatase (45-117) U/L Total Protein (6.4-8.2) gm/dl Albumin (3.4-5.0) gm/dl Globulin (2.5-4.0) gm/dl Albumin/Globulin Ratio (0.9-2) TSH (0.300-4.500) uIu/ml Salicylates (2.8-20) mg/dl Acetaminophen (10-30) ug/ml Carbamazepine (4-12) mcg/ml Ethyl Alcohol mg/dL < 3.0 (0-3) mg/dl COVID-19 Eval Order Covid19 at [facility] SARS-CoV-2 (PCR) NEGATIVE (Negative) 01/10/21 01/10/21 01/10/21 Range/Units 11:55 11:55 11:55 WBC 8.35 (4.8-10.8) K/uL RBC 4.67 L (4.7-6.1) M/uL Hgb 14.0 (14.0-18.0) g/dL Hct 42.1 (42-52) % MCV 90.1 (80-100) fL MCH 30.0 (25-34) pg MCHC 33.3 (32-36) g/dL RDW Std Deviation 46.4 H (36.4-46.3) fL RDW Coeff of Peter 14.1 (11.5-14.5) % Plt Count 294 (130-400) K/uL MPV 9.9 (7.4-10.4) fL Immature Gran % (Auto) 0.1 % Neut % (Auto) 73.8 % Lymph % (Auto) 17.7 % Ralls % (Auto) 6.0 % Eos % (Auto) 2.0 % Baso % (Auto) 0.4 % Neut # (Auto) 6.16 (1.4-6.5) K/uL Lymph # (Auto) 1.48 (1.2-3.4) K/uL Ralls # (Auto) 0.50 (0.11-0.59) K/uL Eos # (Auto) 0.17 (0-0.5) K/uL Baso # (Auto) 0.03 (0-0.2) K/uL Immature Gran # (Auto) 0.01 (0.00-0.02) K/uL Sodium 137 (136-145) mmol/L Potassium 4.0 (3.5-5.1) mmol/L Chloride 109 H (98-107) mmol/L Carbon Dioxide 28 (21-32) mmol/L Anion Gap 0 L (3-11) BUN 11 (7-18) mg/dl Creatinine 1.07 (0.6-1.4) mg/dl Est Cr Clr Drug Dosing 84.6 ml/min Est GFR ( Amer) 88.8 ml/min Est GFR (Non-Af Amer) 76.7 ml/min BUN/Creatinine Ratio 10.0 (10-20) Glucose 95 (70-99) mg/dl Calcium 8.7 (8.5-10.1) mg/dl Magnesium 2.4 (1.8-2.4) mg/dl Total Bilirubin 0.4 (0.2-1) mg/dl AST 13 L (15-37) U/L ALT 22 (12-78) U/L Alkaline Phosphatase 76 (45-117) U/L Total Protein 7.2 (6.4-8.2) gm/dl Albumin 3.2 L (3.4-5.0) gm/dl Globulin 4.0 (2.5-4.0) gm/dl Albumin/Globulin Ratio 0.8 L (0.9-2) TSH 0.941 (0.300-4.500) uIu/ml Salicylates < 1.7 L (2.8-20) mg/dl Acetaminophen < 2 L (10-30) ug/ml Carbamazepine < 0.5 L (4-12) mcg/ml Ethyl Alcohol mg/dL (0-3) mg/dl COVID-19 Eval Order SARS-CoV-2 (PCR) (Negative) Medications Administered Medication List Discontinued Medications Code Status & VTE Plan Code Status Full code VTE Prophylaxis Plan VTE Prophylaxis will be ordered: Yes PG Care Time/CCT Total # of Minutes Spent Total Time Spent with Patient: Total time spent is greater than 50% in coordination of care (as documented) at patient's floor/unit and/or counseling patient: Coding Level of Care Code INT OBSERVATION CARE 70M LVL 3 Diagnoses Mass of right kidney N28.89 Confusion R41.0 Weight loss, unintentional R63.4 Depression F32.9 Depression Type: unspecified (1) Depression Depression Type: unspecified Qualified Code(s): F32.9 - Major depressive disorder, single episode, unspecified
[2021-01-10] MEDS ORDERED: GADOBUTROL 30ML VIAL IV ONE (16:35)
[2021-01-10] MEDS: ENOXAPARIN INJ 40 MG/0.4 ML SYR SQ SCH (18:10)
--- NOTE | 2021-01-10 18:20 | Magnetic Resonance Report ---
MRI OF THE BRAIN COMBO CLINICAL HISTORY: Renal mass. Paraneoplastic syndrome. COMPARISON STUDY: CT of the brain performed the same day 01/10/2021. MRI of the brain dated 11/28/2013. TECHNIQUE: MRI of the brain was performed utilizing various T1 and T2-weighted sequences in the axial , sagittal, and coronal planes. Contrast-enhanced sequences were acquired following the administratio n of 10 cc of Gadavist. FINDINGS: Brain parenchyma: There is mild subcortical and periventricular microangiopathic change. There is no hemorrhage or mass effect. There is no restricted diffusion to suggest acute ischemia. No enhancing m ass lesion is identified on the postcontrast images. [place]-white matter differentiation is preserved. No extra-axial fluid collection is seen. The cerebellar tonsils are normal in configuration. Ventricles, sulci, and cisterns: Normal in configuration. Pituitary and sella: Unremarkable. Intracranial vasculature: Normal flow voids are maintained at the skull base. Orbits: The bony orbits are grossly intact. Orbital contents are normal in appearance. Sinuses and mastoids: There is trace right mastoid effusion. The left mastoid air cells and the paran luisa sinuses are clear. Calvarium: Unremarkable. Cervical cord: Partially visualized cervical spinal cord is normal in morphology and signal intensity . IMPRESSION: No intracranial abnormality is identified. ACT 112: Negative or not required by law. Electronically signed by: Papa Flores M.D. 01/10/2021 6:19 PM
[2021-01-10] MEDS ORDERED: QUEtiapine FUMARATE 25 MG TABLET PO SCH (21:00)
[2021-01-10] MEDS: clonazePAM 1 MG TAB PO SCH (21:12)
[2021-01-10] MEDS: MIRTAZAPINE TAB 15 MG TAB PO SCH (21:13)
[2021-01-10] MEDS: QUEtiapine FUMARATE 200 MG TAB PO SCH (21:13)
[2021-01-10] MEDS: carBAMazepine 200 MG TABLET PO SCH (21:13)
[2021-01-10 23:17] LABS: Appearance Urine Clear (Clear); Bilirubin Urine Negative (Negative); Blood Urine Negative (Negative); Color Urine Yellow; Glucose Urine UA Negative (Negative); Ketones Urine Negative (Negative); Leukocyte Esterase Urine Negative (Negative); Nitrite Urine Negative (Negative); Protein Urine Negative (Negative); Specific Gravity Urine 1.022 (1.000-1.030); Urobilinogen Urine Negative (Negative)
[2021-01-10 23:35] LABS: Amphetamines+Metham, Urine Neg (Neg); Barbiturates, Urine Neg (Neg); Benzodiazepine, Urine Neg (Neg); Cocaine, Urine Neg (Neg); MDMA (Ecstacy), Urine Neg (Neg); Methadone, Urine Neg (Neg); Opiate, Urine Neg (Neg); Phencyclidine, Urine Neg (Neg)
[2021-01-11] MEDS: ENOXAPARIN INJ 40 MG/0.4 ML SYR SQ SCH ×2 (06:24→17:31)
[2021-01-11 07:40] LABS: Basophils # (auto) 0.04 K/uL (0-0.2); Basophils % (auto) 0.6 %; Eosinophils % (auto) 2.8 %; Hemoglobin 14.4 g/dL (14.0-18.0); Lymphocytes # (auto) 2.12 K/uL (1.2-3.4); Lymphocytes % (auto) 29.8 %; Mean Corpuscular Hemoglobin 29.8 pg (25-34); Mean Corpuscular Hgb Conc 33.5 g/dL (32-36); Monocytes # (auto) 0.43 K/uL (0.11-0.59); Neutrophils # (auto) 4.33 K/uL (1.4-6.5); Neutrophils % (auto) 60.8 %; Platelet Count 314 K/uL (130-400); RDW Coefficient of Variation 13.9 % (11.5-14.5); RDW Standard Deviation 45.5 fL (36.4-46.3); Red Blood Count 4.83 M/uL (4.7-6.1); White Blood Count 7.12 K/uL (4.8-10.8)
[2021-01-11 07:59] LABS: Albumin Level 3.4 gm/dl (3.4-5.0); BUN Creatinine Ratio 12.1 (10-20); Calcium 8.9 mg/dl (8.5-10.1); Creatinine Clr Calc Pharmacy 88.6 ml/min; Est GFR (African American) 91.9 ml/min; Est GFR (Non-African American) 79.3 ml/min; Magnesium 1.9 mg/dl (1.8-2.4); Potassium 3.9 mmol/L (3.5-5.1)
[2021-01-11 08:02] LABS: Albumin Globulin Ratio 0.8 (0.9-2); Bilirubin,Total 0.7 mg/dl (0.2-1); Globulin 4.2 gm/dl (2.5-4.0); Phosphorus 3.9 mg/dl (2.5-4.9); Total Protein 7.6 gm/dl (6.4-8.2)
--- NOTE | 2021-01-11 08:09 | Urology Consultation ---
Date of Consultation January 11, 2021 Assessment & Plan (1) Mass of right kidney: 55 year-old male patient, with multiple comorbidities, admitted with depression, confusion, and unintentional weight loss, found to have a 6.0 cm heterogeneous mass in the upper pole of the right kidney. -Plan of care reviewed with Dr. Gomez. -Patient afebrile. -Labs reviewed - white count and creatinine normal. Urinalysis clear. -Imaging reviewed - 6.0 cm heterogeneous mass in the upper pole of the right kidney, suspicious for renal cell carcinoma. -Discussed imaging findings and recommendations with patient given size and location of renal mass. -Recommended surgical intervention in the form of right nephrectomy in the near future. -Will plan to arrange outpatient follow-up once patient medically stable and discharged to discuss plan of care further and schedule procedure if patient and POA elect to proceed with intervention. -For reported LUTS, consider adding Tamsulosin HS. -Bladder scan PRN feelings of incomplete bladder emptying. -Plans for psychiatry evaluation later today. -Will continue to follow while inpatient. History of Present Illness Reason for Consultation: Right renal mass concern for RCC Attending Physician: Liban Jaramillo MD History of Present Illness 55 year-old male patient, with past medical history significant for depression, unintentional weight loss of 60 lbs over the past 6 months, ADD, migraines, GERD, obstructive sleep apnea, and other comorbidities listed below, presented to the emergency room yesterday accompanied with family with complaints of depression and weight loss. Of note, patient with recent hospitalization end of September and October with episode of severe depression. Patient has been managing depression as outpatient with Klonopin, Tegretol, and Seroquel. Has also had expressed thoughts of suicidal ideation. Per notes, patient has also had recent short-term memory issues. Imaging was performed in which an incidental 6.0 cm heterogeneous mass in the upper pole of the right kidney was noted. Patient was admitted to the hospital for additional evaluation and treatment. Urology consulted for right renal mass concern for RCC. Patient followed with [facility], Dr. Luna, in 2016 secondary to elevated PSA. He underwent prostate biopsy in 2016, benign. No known prior history of renal lesion. Chart review: Afebrile Wbc 7.12 Hgb 14.4 Creatinine 1.04 Urinalysis clear. Imaging: CT abd/pelvis with IV contrast - IMPRESSION: 1. There is a 6.0 cm heterogeneous mass lesion in the upper pole of the right kidney. This is seen on image #160. There is no clear evidence of right renal vein invasion. This should be considered renal cell carcinoma until proven otherwise. Follow-up with urology is recommended. 2. There is no evidence of metastatic disease in the abdomen or pelvis. 3. No additional enhancing cortical lesion is clearly identified. 4. A 1.3 cm indeterminate cortical hypodensity is seen in the upper pole of the left kidney. This can be further evaluated with a nonemergent contrast-enhanced renal protocol MRI 5. Hepatic steatosis. 6. Cardiomegaly. 7. Colonic diverticulosis without CT evidence of acute diverticulitis. MRI of the brain combo - IMPRESSION: No intracranial abnormality is identified. Patient seen and examined at bedside. He has flat affect, appears comfortable. 1:1 sitter at bedside for suicide precautions. He currently denies abdominal/flank pain. Denies fevers or chills. Denies nausea or vomiting. States his weight loss has been unintentional over the past few months, does admit to not having an appetite. Reports baseline urinary urgency/frequency. Does not always feel he empties his bladder well. Denies bladder pain or pressure. Denies dysuria or hematuria. Nocturia on average 3-4 times per night. No prior history of known renal mass. He states he has not follow with a urologist since 2015. Does admit to having recent thoughts of suicidal ideation. Currently denies suicidal or homicidal ideation at time of exam. Denies additional urologic concerns today. Allergies Allergy/AdvReac Type Severity Reaction Status Date / Time hydrocodone AdvReac Intermediate BECOMES Verified 01/10/21 14:23 MANIC naproxen AdvReac Mild RECTAL Verified 01/10/21 14:23 BLEEDING WITH EXTENDED USE Home Medications Medication Instructions Recorded Confirmed Type bismuth subsalicylate 262 mg/15 mL 15 ml PO PRN PRN #0 ml 10/08/20 01/10/21 Rx oral suspension (Kaopectate (bismuth subsalicylate)) famotidine 20 mg tablet 20 mg PO DAILY #0 tab 10/08/20 01/10/21 Rx oxymetazoline 0.05 % nasal spray 1 spray NA BID PRN #0 ml 10/08/20 01/10/21 Rx (Nasal [place] (oxymetazoline)) carbamazepine 200 mg tablet 200 mg PO BID 01/10/21 01/10/21 History clonazepam 1 mg tablet 1 mg PO HS 01/10/21 01/10/21 History mirtazapine 30 mg tablet 30 mg PO HS 01/10/21 01/10/21 History quetiapine 200 mg tablet 200 mg PO HS 01/10/21 01/10/21 History quetiapine 25 mg tablet 25 mg PO BID 01/10/21 01/10/21 History sodium chloride 0.65 % nasal spray 1 - 2 spray NA PRN PRN 01/10/21 01/10/21 History aerosol (Saline Mist) Patient History Medical History Cluster headache Medial meniscus tear Surgical History H/O arthroscopic knee surgery History of rotator cuff surgery Family History Mother Lymphoma Father Prostate cancer Grandmother (Maternal) Hypertension Other Diabetes Social History Smoking Status: Never smoker Second Hand Exposure: No; Do You Dip or Chew Tobacco: No; Hx Alcohol Use: Yes Hx Substance Use: No Preferred Language: Kinyarwanda Communication Ability: Effective Metal Fabricator Apprentice Required: No Beliefs That Will Affect Care: None marital status: Current Living Situation: Parent Current Living Situation Comment: lives with father Feels Safe at Home: Yes Safety Concerns: Feels Safe At This Time Assistive Devices: None Review of Systems Constitutional: as per Subjective / HPI; no fever and no chills Eyes: no problem reported Ear, Nose, Mouth, Throat: no dizziness Respiratory: no cough and no dyspnea Cardiovascular: no chest pain and no edema Gastrointestinal: as per Subjective / HPI Genitourinary: + as per Subjective / HPI Musculoskeletal: as per Subjective / HPI Neurologic: as per Subjective / HPI Psychiatric: as per Subjective / HPI Endocrine: no problem reported Hematologic / Lymphatic: no problem reported Physical Exam Constitutional: well developed, well nourished and comfortable; not ill appe aring ENMT: Ears: no external ear abnormality Nose: no external nose abnormality Neck: normal visual inspection and trachea midline Respiratory: normal respiratory effort; no respiratory distress, no cough and no audible wheezes Cardiovascular: Extremities: no edema Gastrointestinal (Abdomen): Inspection/Auscultation: abdomen normal to inspection; abdomen not distended Percussion/Palpation: abdomen soft; abdomen nontender and no guarding Musculoskeletal: Moves all extremities without difficulty. Skin: No visible rashes, lesions, or wounds noted. Neurologic: moves all extremities and awake Psychiatric: Orientation: alert, oriented to person, oriented to place and oriented to time Affect: + flat affect Results & Data ([facility]) Vital Signs (Past 12 Hours) Vital Signs Temp Pulse Resp BP Pulse Ox 01/11/21 07:14 36.7 C 70 16 148/84 H 98 01/10/21 22:54 36.8 C 102 H 16 123/77 95 PG Care Time/CCT Total # of Minutes Spent Total Time Spent with Patient: Total time spent is greater than 50% in coordination of care (as documented) at patient's floor/unit and/or counseling patient: Coding Level of Care Code 56715 Inpt Consult Level 4 Diagnoses Mass of right kidney N28.89
[2021-01-11] MEDS: LORATADINE 10 MG TAB PO SCH (08:43)
--- NOTE | 2021-01-11 08:43 | Neurology Consultation ---
Date of Consultation January 11, 2021 Assessment & Plan (1) Depression: (2) Confusion: (3) Weight loss, unintentional: (4) Mild obstructive sleep apnea: (5) Sleep terror disorder: This patient was very difficult to evaluate from a neurologic standpoint since he would not speak to me or answer any questions. He has a history of ADHD, severe depression, and episode of hypomania in the past. He has mild obstructive sleep apnea and sleep terror which is typically controlled with clonazepam. I am not convinced this patient is "confused". His behavior seems willful/volitional and consistent with a significant psychiatric disorder. There may be some mild bradykinesia on exam due to Seroquel. there is no rigidity, resting tremor, or classical Parkinson's gait. Otherwise, physically he has no focal findings, meningeal signs, signs of infection, or obvious encephalopathy. He certainly does not seem to have a delirium. MRI of the brain shows no acute findings. He has some nonspecific old small vessel ischemic changes of a mild nature only. I am not convinced that this mild amount of small vessel ischemia would lead to a vascular dementia. Laboratory studies were unremarkable both in October and currently. The patient appears to have some unintentional weight loss. I am not sure, based on weights I could obtain from the chart, that it is quite is significant as stated on admission. He he likely has severe depression creating decreased appetite and weight loss. The mass seen on the right renal pole may represent renal carcinoma, which could explain weight loss. Recommendations: 1. Follow-up regarding the right renal pole mass. 2. This patient needs psychiatric evaluation, and regular psychiatric follow- up. 3. I am not certain, currently, that the patient needs any additional neurologic testing or treatment at this time. I do not see a specific reason for lumbar puncture or an EEG. If the patient would cooperate, formal neuropsychological testing be reasonable, but this would have to be obtained as an outpatient 4. For taking 200 milligrams twice a day of carbamazepine, his level seems to low. Consider rechecking a trough carbamazepine level after being on the regular doses for 5-7 days. 5. Otherwise, I will follow while he is in a hospital. Overall, I spent a total of 110 minutes with this case including review of records, review of MRI films, direct evaluation of the patient at bedside, and discussion of the case with the patient at bedside, RN at bedside, Dr. Jaramillo and Dr. Coombs, including differential diagnosis and treatment options. History of Present Illness Reason for Consultation: patient is a 55-year-old, who I was asked to see at the request of Dr. Barclay, for neurologic evaluation regarding confusion. Requesting Physician: Dr. Barclay Attending Physician: Liban Jaramillo MD History of Present Illness this patient was very difficult to evaluate today. Although he would follow some 1 step commands for a neurologic examination, he actually would not answer any questions. Therefore, virtually all of my history is from the chart. Patient has a history of ADHD, a hypomanic episode in the past, and some OCT. More recently, he is followed by sleep medicine /allergy for allergic rhinitis, a REM behavioral/movement disorder, sleep terror and mild obstructive sleep apnea. He was last evaluated in September of [address] Barbour. CPAP is effective, however he is not compliant with his immunotherapy which had been controlling his seasonal allergies. apparently, clonazepam at bedtime considerably helps his sleep terror and Adderall had been helping his excessive daytime sleepiness. In late September/early October, he was admitted to the psychiatric unit with severe depression. Apparently, He was followed by Dr. Fernandez who retired 2 years ago and the patient stopped regular psychiatric care. He has significant financial issues and he lives alone. He has mentioned on multiple occasions that he wishes he was not alive, but has no specific plan or intent to harm himself otherwise. He was put on Abilify 5 milligrams a day plus clonazepam 1 milligram at bedtime. After this admission he saw Dr. Myers but the patient was going to spend some time in [place] with his brother ( who is a physician). Patient felt that he had been losing 50 pounds unintentionally despite eating 3 meals a day he claimed. During that hospitalization, CBC and Chem profile were unremarkable and a Lyme antibody titer was negative. B12 was normal at 485. Going through the chart: in June of 2017 he was 272 pounds, July of 2019 was 263 pounds, October of 2020 he was 231 pounds, and January 10, he weighed 222 pounds. Therefore, a total of 50 pounds over 3 and half years. The patient came back from [place] and try to live with his elderly father but this did not work out. By the time he came back, he was taking carbamazepine 200 milligrams twice a day, clonazepam 1 milligram at bedtime, Seroquel 25 milligrams in the morning, 25 milligrams in the afternoon, and 200 milligrams in the evening. He was also on Remeron 30 milligrams at bedtime. tThese were his medications when he came to the emergency room January 10. On January 10, at 1050, temperature was 36.9, pulse 75, respiratory rate 18, blood pressure 156/89, and O2 saturation 97 percent. His neurologic examination was described as nonfocal and he had a very flat affect with depressed mood. CBC and Chem profile were unremarkable. TSH was 0.9. carbamazepine level was less than 0.5. There is concern of noncompliance by family members CT scan of the head was unremarkable. Chest x-ray shows some cardiomegaly but no acute changes. CT scan of the abdomen and pelvis showed a 6 centimeter heterogeneous mass on the upper pole of the right kidney. It did not enhance. There were no other signs of lesions or metastasis in the pelvis. Also noted was hepatic steatosis and cardiomegaly. There was chronic diverticulosis without diverticulitis MRI of the brain showed no acute abnormalities are stroke. There is mild nonspecific old small vessel ischemic changes seen. This morning, CBC, Chem, and liver profile were unremarkable. Blood pressure was 148/84. About 30 minutes after I finished with the patient this morning, I went back to the patient's room and found him still walking a little bit. The aide said that he had filled out his lunch menu, and I asked the patient if he was willing to talk to me. He stated, "no thank you", and turned away from me. I discussed the case with Dr. Coombs, psychiatrist, who is familiar with this patient from his last hospitalization. He will be evaluating the patient from a psychiatric standpoint later today. Allergies Allergy/AdvReac Type Severity Reaction Status Date / Time hydrocodone AdvReac Intermediate BECOMES Verified 01/10/21 14:23 MANIC naproxen AdvReac Mild RECTAL Verified 01/10/21 14:23 BLEEDING WITH EXTENDED USE Home Medications Medication Instructions Recorded Confirmed Type bismuth subsalicylate 262 mg/15 mL 15 ml PO PRN PRN #0 ml 10/08/20 01/10/21 Rx oral suspension (Kaopectate (bismuth subsalicylate)) famotidine 20 mg tablet 20 mg PO DAILY #0 tab 10/08/20 01/10/21 Rx oxymetazoline 0.05 % nasal spray 1 spray NA BID PRN #0 ml 10/08/20 01/10/21 Rx (Nasal [place] (oxymetazoline)) carbamazepine 200 mg tablet 200 mg PO BID 01/10/21 01/10/21 History clonazepam 1 mg tablet 1 mg PO HS 01/10/21 01/10/21 History mirtazapine 30 mg tablet 30 mg PO HS 01/10/21 01/10/21 History quetiapine 200 mg tablet 200 mg PO HS 01/10/21 01/10/21 History quetiapine 25 mg tablet 25 mg PO BID 01/10/21 01/10/21 History sodium chloride 0.65 % nasal spray 1 - 2 spray NA PRN PRN 01/10/21 01/10/21 History aerosol (Saline Mist) Patient History Medical History Cluster headache Medial meniscus tear Surgical History H/O arthroscopic knee surgery History of rotator cuff surgery Family History Mother Lymphoma Father Prostate cancer Grandmother (Maternal) Hypertension Other Diabetes Social History Smoking Status: Never smoker Second Hand Exposure: No; Do You Dip or Chew Tobacco: No; Hx Alcohol Use: Yes Hx Substance Use: No Preferred Language: Iraqi Communication Ability: Effective Supervisor/Port Director Required: No Beliefs That Will Affect Care: None marital status: Current Living Situation: Parent Current Living Situation Comment: lives with father Feels Safe at Home: Yes Safety Concerns: Feels Safe At This Time Assistive Devices: None Review of Systems Review of Systems: Unobtainable due to mental health condition and Other ( Review of systems was absolutely unobtainable to the patient's refusal to answer questions.) Exam (Neuro) Physical Exam: The patient seems right-handed. The patient is awake, alert, and attentive. Speech has no obvious aphasia or dysarthria ( Although I only heard 1 phrase: When I came into the room he looked straight at me and said "tye Jean" and nose with the only words he ever said throughout the entire visit). For the 1st 5 minutes or so of the visit, he was slowly pacing around the room. He would take a few steps, stat top and stare in a direction then turn and take some steps in a different direction and repeat this process. He did have some arm swing. I tried to talk to him throughout the time he was doing this but he would not answer. Once I held up my hand to shake his hand and he immediately took both hands and full them on his chest. Another time, I looked up at him and caused him looking to the left it me. As soon as he saw that I looked at him he quickly shifted his gaze to front. When I finally got him to sit down he could follow some 1 step commands without too much hesitation. He was sitting on the edge of the bed. Pupils are 4 mm bilaterally and reactive to light. Extraocular eye muscles are intact without nystagmus. Visual acuity and visual trotter seem normal grossly to confrontation. There are no deficits to sensation in the face in all 3 distributions of the fifth cranial nerve bilaterally. Corneal reflexes are positive bilaterally. Facial strength and symmetry was normal bilaterally. Hearing seems normal bilaterally. Palate moves well without asymmetry. There is normal sternocleidomastoid and trapezius (shoulder shrug) strength bilaterally. Tongue is midline with good strength bilaterally. Neck has a full range of motion without discomfort. There are no cervical bruits bilaterally. There are no cranial or ocular bruits. Heart is without murmur. There is a regular rhythm and rate. Cervical, thoracic, and lumbar spine are nontender to palpation. Gait is narrow based, with reasonable arm swing, turns, and stance. Balance is normal eyes open or closed. With outstretched arms there is no drift. There are no resting, postural, or action tremors that I could notice. There is no obvious ataxia with finger to nose testing. There is good facility in the hands. No other abnormal involuntary movements are noted. Motor strength is 5/5 diffusely in the arms bilaterally including deltoids, biceps, triceps, brachioradialis, wrist flexors and extensors, painting technician, and intrinsic hand muscles. Motor strength is 5/5 diffusely in the legs bilaterally including hip flexors, quadriceps, hamstrings, gastrocnemius, tibialis anterior, tibialis posterior, and Peroneii muscles. Toe extensors are normal and there is good bulk in the extensor digitorum brevis muscles bilaterally. The limbs have good tone without rigidity or spasticity. There is no atrophy noted in the muscles. Muscle bulk is normal, there is no tenderness to palpation, no myotonia to percussion, and no fasciculations seen. Sensory examination seems intact to pain and touch. Reflexes are 2/4 in the biceps, triceps, brachioradialis, quadriceps, and Achilles tendons bilaterally. There is no clonus bilaterally. Toes are downgoing with plantar stimulation bilaterally. Peripheral pulses are present and of normal quality distally in all 4 limbs. There is no peripheral edema noted in the limbs. Results & Data ([facility]) Vital Signs (Past 12 Hours) Vital Signs Temp Pulse Resp BP Pulse Ox 01/11/21 07:14 36.7 C 70 16 148/84 H 98 01/10/21 22:54 36.8 C 102 H 16 123/77 95 PG Care Time/CCT Total # of Minutes Spent Total Time Spent with Patient: Total time spent is greater than 50% in coordination of care (as documented) at patient's floor/unit and/or counseling patient: Coding Level of Care Code 16512 Office/OBS Consult Lvl 5 Diagnoses Depression F33.2 Active/Remission status: currently active Depression Type: major depressive disorder Major depression episode severity: severe Major depression recurrence: recurrent Psychotic features: without psychotic features Confusion R41.0 Weight loss, unintentional R63.4 Mild obstructive sleep apnea G47.33 Sleep terror disorder F51.4 Time Spent (min) 110 Comment add modifiers as able (1) Depression Active/Remission status: currently active Depression Type: major depressive disorder Major depression episode severity: severe Major depression recurrence: recurrent Psychotic features: without psychotic features Qualified Code(s): F33.2 - Major depressive disorder, recurrent severe without psychotic features
[2021-01-11] MEDS: carBAMazepine 200 MG TABLET PO SCH ×2 (08:44→20:49)
[2021-01-11] MEDS: QUEtiapine FUMARATE 25 MG TABLET PO SCH ×2 (08:44→14:00)
[2021-01-11] MEDS: FAMOTIDINE 20 MG TAB PO SCH (08:44)
--- NOTE | 2021-01-11 13:54 | Electroencephalogram ---
EEG Procedure Note Date of Service January 11, 2021 Start / End Times Start Time: 1200 End Time: [address] Barclay History 55-year-old with history of recent altered mental status /confusion Home Medication List Medication Instructions Recorded Confirmed Type bismuth subsalicylate 262 mg/15 mL 15 ml PO PRN PRN #0 ml 10/08/20 01/10/21 Rx oral suspension (Kaopectate (bismuth subsalicylate)) famotidine 20 mg tablet 20 mg PO DAILY #0 tab 10/08/20 01/10/21 Rx oxymetazoline 0.05 % nasal spray 1 spray NA BID PRN #0 ml 10/08/20 01/10/21 Rx (Nasal [place] (oxymetazoline)) carbamazepine 200 mg tablet 200 mg PO BID 01/10/21 01/10/21 History clonazepam 1 mg tablet 1 mg PO HS 01/10/21 01/10/21 History mirtazapine 30 mg tablet 30 mg PO HS 01/10/21 01/10/21 History quetiapine 200 mg tablet 200 mg PO HS 01/10/21 01/10/21 History quetiapine 25 mg tablet 25 mg PO BID 01/10/21 01/10/21 History sodium chloride 0.65 % nasal spray 1 - 2 spray NA PRN PRN 01/10/21 01/10/21 History aerosol (Saline Mist) Inpatient Medication List Carbamazepine (Carbamazepine 200 Mg Tablet) 200 mg PO BID [facility] Stop: 02/09/21 20:59 Last Admin: 01/11/21 08:44 Dose: 200 mg Documented by: [id number] Admin: 01/10/21 21:13 Dose: 200 mg Documented by: [id number] Clonazepam (Clonazepam 1 Mg Tab) 1 mg PO HS [facility]ACLYN Stop: 02/09/21 20:59 Last Admin: 01/10/21 21:12 Dose: 1 mg Documented by: [id number] Enoxaparin Sodium (Enoxaparin Inj 40 Mg/0.4 Ml Syr) 40 mg SQ Q12H JACLYN Stop: 02/09/21 17:59 Last Admin: 01/11/21 06:24 Dose: Not Given Documented by: [id number] Admin: 01/10/21 18:10 Dose: Not Given Documented by: [id number] Famotidine (Famotidine 20 Mg Tab) 20 mg PO DAILY [facility] Stop: 02/10/21 08:59 Last Admin: 01/11/21 08:44 Dose: 20 mg Documented by: [id number] Loratadine (Loratadine 10 Mg Tab) 10 mg PO QAM [facility] Stop: 02/10/21 08:59 Last Admin: 01/11/21 08:43 Dose: 10 mg Documented by: [id number] Mirtazapine (Mirtazapine Tab 15 Mg Tab) 30 mg PO HS [facility] Stop: 02/09/21 20:59 Last Admin: 01/10/21 21:13 Dose: 30 mg Documented by: [id number] Quetiapine Fumarate (Quetiapine Fumarate 200 Mg Tab) 200 mg PO HS [facility] Stop: 02/09/21 20:59 Last Admin: 01/10/21 21:13 Dose: 200 mg Documented by: [id number] Quetiapine Fumarate (Quetiapine Fumarate 25 Mg Tablet) 25 mg PO BID@0900,1400 [facility] Stop: 02/10/21 08:59 Last Admin: 01/11/21 08:44 Dose: 25 mg Documented by: [id number] Discontinued Medications Gadobutrol (Gadobutrol 30ml Vial) 10 ml IV ONCE ONE Stop: 01/10/21 16:36 Last Admin: 01/10/21 16:35 Dose: 10 ml Documented by: [id number] Ioversol (Optiray 320 100ml) 94 ml IV ONCE ONE Stop: 01/10/21 12:43 Last Admin: 01/10/21 12:42 Dose: 94 ml Documented by: [id number] Description This is a 21 electrode EEG with a single channel dedicated to limited EKG. The electrodes were placed in accordance with the International 10-20 system. Interpretation The predominant background activity consists of a fairly well modulated 10 Hz activity, of up to 50 mV in amplitude,seen symmetrically distributed over the posterior head regions bilaterally. This activity attenuates nicely with eye- opening and other alerting procedures. Photic stimulation was performed and elicited no change in the background activity and no abnormal responses were seen. Hyperventilation was not performed. A minimal amount of muscle and movement artifact activity contaminated the recording and did not hinder interpretation to any significant degree. Throughout the waking portion of the recording, no focal abnormalities, abnormal slow activity, or potentially epileptogenic discharges are seen. The patient entered the drowsy state and brief periods of stage II sleep with no further activation. In summary, this EEG was normal during wakefulness and sleep. No focal abnormalities, potentially epileptogenic discharges, or abnormal slow activity was seen. Clinical Correlation The abscence of potentially epileptogenic activity does not exclude a seizure disorder, since interictally, EEGs can be normal. Clinical correlation is required. [facility] EEG Procedure Codes Indication for Procedure (1) Confusion: (2) REM behavioral disorder: (3) Sleep terror disorder: (4) Periodic limb movement disorder: Neurology Neurology: 13709 EEG include record awake & sleepy
--- NOTE | 2021-01-11 15:37 | Hospitalist Progress Note ---
Date of Service January 11, 2021 Assessment & Plan (1) Depression: Plan: Depression with wanting to find a way to where his body down and his life, psychiatric consultation suicide precautions are initiated Remains on Tegretol, clonazepam, mirtazapine, quetiapine as per his home dosing regiment recent TSH was checked, am cortisol pending (2) Mass of right kidney: Plan: 6 cm exophytic right renal mass, urology recommended outpt nephrectomy, urine cytology pending, given pts mental status cannot assure he will agree to consent to procedure (3) Esophageal reflux: Plan: Pepcid continues (4) DVT prophylaxis: Plan: lovenox is used for dvt prevention Admission and Anticipated Discharge Date Admission Date: January 10, 2021 Subjective Patient is despondent keeps muttering phrases like he messed things up his physical body is no good. He most recently was discharged from inpatient psych in October 2020. Reportedly he was brought in as he was trying to wear his physical body down to the point that he would . He has no particular focal complaints right now. He is aware of his newfound right sided renal mass. At the end of my visit I asked if I can update his family and he said no at this time. Review of Systems Review of Systems: Mild distress and moderate fatigue no headache, no visual changes no speech or swallowing issues no chest pain, pressure or palpitations no shortness of breath, cough or wheezes no abdominal pain, nausea or vomiting, diarrhea states he has decreasd stool output for two weeks no dysuria, hematuria or frequency, states has some loss of control of his urine no focal joint pain or swelling no back pain, CVA tenderness or radicular pain no bruising, bleeding or rashes no focal signs of weakness or numbness or altered sensation no complaints of anxiety or depression.. Physical Exam Physical Exam: The patient appeared withdrawn and despondent Vital signs as documented. Lungs are clear to auscultation but with poor effort Cardiac exam, Rhythm is regular.. No murmurs, rubs or gallops. Abdominal exam reveals normal bowel sounds, soft Extremities are nonedematous and both pedal pulses are normal. Neurologic exam is alert and oriented, no focal loss of strength or sensation he is expression less and has slow movements Skin is without bruises or rashes Results & Data Results & Data ([facility]) Vital Signs (Past 12 Hours) Vital Signs Temp Pulse Resp BP Pulse Ox 01/11/21 07:14 98.1 F 70 16 148/84 H 98 PG Care Time/CCT Total # of Minutes Spent Total Time Spent with Patient: Total time spent is greater than 50% in coordination of care (as documented) at patient's floor/unit and/or counseling patient: Coding Level of Care Code 95335 Subseq Hosp Care Lvl 3 Diagnoses Depression F33.2 Active/Remission status: currently active Depression Type: major depressive disorder Major depression episode severity: severe Major depression recurrence: recurrent Psychotic features: without psychotic features Mass of right kidney N28.89 Esophageal reflux K21.9 DVT prophylaxis Z29.9 (1) Depression Active/Remission status: currently active Depression Type: major depressive disorder Major depression episode severity: severe Major depression recurrence: recurrent Psychotic features: without psychotic features Qualified Code(s): F33.2 - Major depressive disorder, recurrent severe without psychotic features
--- NOTE | 2021-01-11 15:58 | Psychiatric Consultation ---
Date of Consultation January 11, 2021 Impression / Recommendations Impression This is a 55-year-old male who has a past history of depression with psychotic features who presented to the emergency department with some weakness and weight loss and was found to have a mass on his kidney. Patient is also significantly depressed at this time and expressing suicidal ideation. 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 Patient will require inpatient hospitalization for safety, stabilization, medication management following his medical clearance from the medical floors. He is in no condition to make any health-related decisions at this current mental state. Benzodiazepine medication will be added to his regimen to assist patient with preprocedure or testing anxiety. (1) Depression: Recommendations: Continue home dosages medications for now Patient will require inpatient psychiatric hospitalization following medical clearance 2 mg of Ativan p.o. as needed every 6 hours added to regimen to aid with preprocedure/test anxiety Please continue to keep patient on a one-to-one for suicidality Patient is not free to leave the hospital at this time Active/Remission status: currently active Depression Type: major depressive disorder Major depression episode severity: severe Major depression recurrence: recurrent Psychotic features: without psychotic features Qualified Code(s): F33.2 - Major depressive disorder, recurrent severe without psychotic features Psych History Chief Complaint "I dont deserve anything". History of Present Illness HPI as per liaison "Patient's nurse reported that Eren made concerning statements regarding "not wanting to be here". When I interviewed patient he admitted to a desire to , but stated that he had not gone through with any planning or taken any action toward that end. He denied any access to fire arms, or means to kill himself. When I inquired what was keeping him from planning or going through with a plan he stated, "That's the thing I don't know how". Given patient's education level, I find this comment to be a bit perplexing, and am uncertain if other cognitive limitations are at play. Patient stated he does not want to go inpatient for mental health treatment at this time, and when I asked what his plan was after he is presumably discharged, he stated, "Go try again". When I asked what he meant by that he stated, "Go try to kill myself". When I reminded patient that earlier he had stated that he had no plan previously, he replied that yes, he did not, but that he does have motivation at this time "to try". Given patient's incongruent and confusing statements, I think it is nelson that he continue to be monitored for suicidality, and that all measures are taken to ensure that he does not have access to any means to hurt himself. 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 During previous admission patient was psychotic with some suicidal ideation. Upon evaluation this afternoon patient appears to be more depressed although does have a psychotic thought process underlying his situation. He remains hopeless quite depressed and suicidal at this time. Unclear to what extent his recent news of significant medical issues has impacted this, although patient seems to be ambivalent about his health and wellbeing at this time. He is somewhat agreeable to inpatient hospitalization following his inpatient medical stay. Per nursing report no episodes of aggression or outburst at this time. Patient is however refusing some procedures. Past Psychiatric History Current Psychiatric Diagnosis: ADD, OCD Allergies Allergy/AdvReac Type Severity Reaction Status Date / Time hydrocodone AdvReac Intermediate BECOMES Verified 01/10/21 14:23 MANIC naproxen AdvReac Mild RECTAL Verified 01/10/21 14:23 BLEEDING WITH EXTENDED USE Home Medications Medication Instructions Recorded Confirmed Type bismuth subsalicylate 262 mg/15 mL 15 ml PO PRN PRN #0 ml 10/08/20 01/10/21 Rx oral suspension (Kaopectate (bismuth subsalicylate)) famotidine 20 mg tablet 20 mg PO DAILY #0 tab 10/08/20 01/10/21 Rx oxymetazoline 0.05 % nasal spray 1 spray NA BID PRN #0 ml 10/08/20 01/10/21 Rx (Nasal [place] (oxymetazoline)) carbamazepine 200 mg tablet 200 mg PO BID 01/10/21 01/10/21 History clonazepam 1 mg tablet 1 mg PO HS 01/10/21 01/10/21 History mirtazapine 30 mg tablet 30 mg PO HS 01/10/21 01/10/21 History quetiapine 200 mg tablet 200 mg PO HS 01/10/21 01/10/21 History quetiapine 25 mg tablet 25 mg PO BID 01/10/21 01/10/21 History sodium chloride 0.65 % nasal spray 1 - 2 spray NA PRN PRN 01/10/21 01/10/21 History aerosol (Saline Mist) Personal History Living Arrangements: Home Beliefs That Will Affect Care: None Patient History Medical History Cluster headache Medial meniscus tear Surgical History H/O arthroscopic knee surgery History of rotator cuff surgery Family History Mother Lymphoma Father Prostate cancer Grandmother (Maternal) Hypertension Other Diabetes Social History Smoking Status: Never smoker Second Hand Exposure: No; Do You Dip or Chew Tobacco: No; Hx Alcohol Use: Yes Hx Substance Use: No Preferred Language: Danish Communication Ability: Impaired New Order Clerk Required: No Beliefs That Will Affect Care: None marital status: Current Living Situation: Parent Current Living Situation Comment: lives with father Feels Safe at Home: Yes Safety Concerns: Feels Safe At This Time Assistive Devices: None Physical Exam Psychiatric: Orientation: alert Apperance: appropriately dressed Eye Contact: + poor eye contact Motor Behavior: + psychomotor retardation Speech: normal rate/rhythm/volume of speech Affect: + depressed affect, + flat affect and + blunted affect Mood: + depressed mood and + dysphoric mood Thought Process: + circumstantial thought process and + perseveration Thought Content: + cognitive distortions, + hopelessness, + worthlessness, + guilt and + self deprecation Suicidal Thoughts: + reports suicidal thoughts, + reports suicidal plan and + reports suicidal intent Homicidal Thoughts: denies homicidal thoughts Hallucinations: no auditory hallucinations and no visual hallucinations Cognition: recent memory grossly intact Estimated Intelligence: average estimated intelligence Insight: + limited insight Judgement: + poor judgement Vital Signs (Past 24 Hours): Last Vital Signs Temp 36.7 C 01/11/21 07:14 Pulse 70 01/11/21 07:14 Resp 16 01/11/21 07:14 BP 148/84 H 01/11/21 07:14 Pulse Ox 98 01/11/21 07:14 Review of Systems All systems reviewed & are unremarkable except as noted in HPI & below Results & Data (PSY) Medications Administered Carbamazepine (Carbamazepine 200 Mg Tablet) 200 mg PO BID JACLYN Stop: 02/09/21 20:59 Last Admin: 01/11/21 08:44 Dose: 200 mg Documented by: [id number] Admin: 01/10/21 21:13 Dose: 200 mg Documented by: [id number] Clonazepam (Clonazepam 1 Mg Tab) 1 mg PO [facility] Stop: 02/09/21 20:59 Last Admin: 01/10/21 21:12 Dose: 1 mg Documented by: [id number] Enoxaparin Sodium (Enoxaparin Inj 40 Mg/0.4 Ml Syr) 40 mg SQ Q12H JACLYN Stop: 02/09/21 17:59 Last Admin: 01/11/21 06:24 Dose: Not Given Documented by: [id number] Admin: 01/10/21 18:10 Dose: Not Given Documented by: [id number] Famotidine (Famotidine 20 Mg Tab) 20 mg PO DAILY [facility] Stop: 02/10/21 08:59 Last Admin: 01/11/21 08:44 Dose: 20 mg Documented by: [id number] Loratadine (Loratadine 10 Mg Tab) 10 mg PO QAM [facility] Stop: 02/10/21 08:59 Last Admin: 01/11/21 08:43 Dose: 10 mg Documented by: [id number] Mirtazapine (Mirtazapine Tab 15 Mg Tab) 30 mg PO [facility] Stop: 02/09/21 20:59 Last Admin: 01/10/21 21:13 Dose: 30 mg Documented by: [id number] Quetiapine Fumarate (Quetiapine Fumarate 200 Mg Tab) 200 mg PO [facility] Stop: 02/09/21 20:59 Last Admin: 01/10/21 21:13 Dose: 200 mg Documented by: [id number] Quetiapine Fumarate (Quetiapine Fumarate 25 Mg Tablet) 25 mg PO BID@0900,1400 [facility] Stop: 02/10/21 08:59 Last Admin: 01/11/21 14:00 Dose: 25 mg Documented by: [id number] Admin: 01/11/21 08:44 Dose: 25 mg Documented by: [id number] Coding Level of Care Code 55483 [facility] Intl Hosp Care Lvl 2 Diagnoses Depression F33.2 Active/Remission status: currently active Depression Type: major depressive disorder Major depression episode severity: severe Major depression recurrence: recurrent Psychotic features: without psychotic features Time Spent (min) 45
[2021-01-11] MEDS ORDERED: LORazepam 1 MG TAB PO PRN (15:59)
--- NOTE | 2021-01-11 17:38 | Electrocardiogram Report ---
Test Reason : Blood Pressure : / mmHG Vent. Rate : 071 BPM Atrial Rate : 071 BPM P-R Int : 158 ms QRS Dur : 072 ms QT Int : 414 ms P-R-T Axes : 023 035 037 degrees QTc Int : 449 ms Poor data quality, interpretation may be adversely affected Normal sinus rhythm When compared with ECG of 22-JUN-2017 14:01, T wave inversion now evident in Anterior leads Confirmed by Jv Salomon ([id number]) on 01/11/2021 5:38:25 PM Referred By: REFERRED SELF Confirmed By:Seth Salomon
[2021-01-11] MEDS: clonazePAM 1 MG TAB PO SCH (20:49)
[2021-01-11] MEDS: QUEtiapine FUMARATE 200 MG TAB PO SCH (20:50)
[2021-01-11] MEDS: SENNA 8.6 MG TAB PO SCH (20:50)
[2021-01-11] MEDS: MIRTAZAPINE TAB 15 MG TAB PO SCH (20:50)
[2021-01-12] MEDS: ENOXAPARIN INJ 40 MG/0.4 ML SYR SQ SCH ×2 (06:10→18:30)
[2021-01-12] MEDS: QUEtiapine FUMARATE 25 MG TABLET PO SCH ×2 (09:04→13:45)
[2021-01-12] MEDS: LORATADINE 10 MG TAB PO SCH (09:04)
[2021-01-12] MEDS: FAMOTIDINE 20 MG TAB PO SCH (09:04)
[2021-01-12] MEDS: carBAMazepine 200 MG TABLET PO SCH ×2 (09:04→20:40)
--- NOTE | 2021-01-12 10:31 | Neurology Progress Note ---
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 He has mild obstructive sleep apnea and sleep terror which is typically controlled with clonazepam. I am not convinced this patient is "confused" or suffering from an encephalopathy or dementia. His behavior is most consistent with a significant psychiatric disorder. There may be some mild bradykinesia on exam due to Seroquel. There is no rigidity, resting tremor, or classical Parkinson's gait otherwise. Physically he has no focal findings, meningeal signs, signs of infection, or obvious encephalopathy. He does not seem to have a delirium. MRI of the brain shows no acute findings. He has some nonspecific old small vessel ischemic changes of a mild nature only. I am not convinced that this mild amount of small vessel ischemia would lead to a vascular dementia. Laboratory studies were unremarkable both in October and currently. The patient appears to have some unintentional weight loss. I am not sure, based on weights I could obtain from the chart, that it is quite is significant as stated on admission. He likely has severe depression creating decreased appetite and weight loss. The mass seen on the right renal pole may represent renal carcinoma, which could explain weight loss. Renal cell carcinoma can be associated with paraneoplastic syndromes but most of these are "seronegative" ( no obvious antibody marker associated). Recommendations: 1. Follow-up regarding the right renal pole mass. 2. continue regular psychiatric care 3. The patient does not need any additional neurologic testing or treatment at this time. however, in order to evaluate for paraneoplastic syndromes, he would need an LP and we would need to obtain anti Hu, anti Ma, and anti CV2 4. Rechecking a trough carbamazepine level after being on the regular doses for 5-7 days. 5. I will follow while he is in a hospital. Overall, I spent a total of 35 minutes with this case including review of records, direct evaluation of the patient at bedside, and discussion of the case with the patient at bedside, and Dr. Jaramillo, including differential diagnosis and treatment options. Admission and Anticipated Discharge Date Admission Date: January 10, 2021 Subjective Patient denies any pain or headache. He does not have any dizziness, weakness, or numbness either. EEG yesterday was largely unremarkable. Blood pressure this morning is 164/94. Psychiatry felt that the patient needs a psychiatric inpatient visit after he is cleared medically. Apparently the patient's brother ( who is a physician) is concerned about possible paraneoplastic syndrome affecting his cognitive functioning Results & Data ([facility]) Vital Signs (Past 12 Hours) Vital Signs Temp Pulse Pulse Resp BP Pulse Ox 01/12/21 08:00 36.5 C 58 L 20 164/94 H 99 01/11/21 22:56 36.9 C 80 18 144/82 H 95 Exam (Neuro) Physical Exam: he is awake and alert. Speech is without obvious a facial or dysarthria. He is quiet and will tend to answer a few words or short sentences only. He tends not to make eye contact when he talks to me. Otherwise, he is pleasant and cooperative this morning. Extraocular eye muscles are intact without nystagmus. He has no facial droop and tongue is midline. Gait is narrow based and stable. Coordination is normal in the arms without tremor or ataxia. Strength is 5/5 diffusely in all major muscle groups in arms and legs both proximally and distally. PG Care Time/CCT Total # of Minutes Spent Total Time Spent with Patient: Total time spent is greater than 50% in coordination of care (as documented) at patient's floor/unit and/or counseling patient: Coding Level of Care Code 98197 Subseq Hosp Care Lvl 3 Diagnoses Confusion R41.0 REM behavioral disorder G47.52 Sleep terror disorder F51.4 Periodic limb movement disorder G47.61 Time Spent (min) 35
--- NOTE | 2021-01-12 15:29 | Urology Progress Note ---
Date of Service January 12, 2021 Assessment & Plan (1) Mass of right kidney: Plan: 6 cm, central right renal mass Brief discussion with the patient today about the findings Unfortunately is continuing to [place] with depression and suicidal ideation Discussed the diagnosis and prognosis (excellent) with the patient He seems to understand the situation but he is certainly not in any mental capacity to be able to make decisions adequately I then had a conversation with the patient's brother and son I also discussed the patient's condition with the lead psychiatrist The psychiatrist feels comfortable stating that the patient has not mentally capable of making decisions and the son and the patient's brother both feel that we should move forward with treatment of the renal mass MORE. We have completed an appropriate surgical consent signed by both the brother and son The conversation then continued with the psychiatrist and the brother and son. We will determine timing for surgery pending or availability and medical/psychiatric stability. Admission and Anticipated Discharge Date Admission Date: January 10, 2021 Subjective Hospitalized with suicidal ideation, did not really relate any other complaints Physical Exam Constitutional: well developed and well nourished Respiratory: no respiratory distress Cardiovascular: Extremities: no pedal edema Gastrointestinal (Abdomen): Inspection/Auscultation: abdomen normal to inspection Results & Data ([facility]) Vital Signs (Past 12 Hours) Vital Signs Temp Pulse Resp BP Pulse Ox 01/12/21 14:52 37 C 83 18 141/96 H 97 01/12/21 08:00 36.5 C 58 L 20 164/94 H 99 PG Care Time/CCT Total # of Minutes Spent Total Time Spent with Patient: Total time spent is greater than 50% in coordination of care (as documented) at patient's floor/unit and/or counseling patient: Coding Level of Care Code 98201 Subseq Hosp Care Lvl 3 Diagnoses Mass of right kidney N28.89
--- NOTE | 2021-01-12 16:37 | Hospitalist Progress Note ---
Date of Service January 12, 2021 Assessment & Plan (1) Depression: Plan: Depression with wanting to find a way to where his body down and his life, psychiatric consultation suicide precautions are initiated Remains on Tegretol, clonazepam, mirtazapine, quetiapine as per his home dosing regiment recent TSH was checked. Pt did remove his IV and refused labs (2) Mass of right kidney: Plan: 6 cm exophytic right renal mass, urology recommended outpt nephrectomy, urine cytology negative but this is a poor test to determine malignancy, Urology as discussed the procedure with the patient's power of state's attorney and his brother. Also with psychiatrist. They feel that the power of state's attorney next in line will be the patient's son was present during discussions and they will proceed with scheduling surgical excision of his renal mass at the earliest possible convenient time (3) Esophageal reflux: Plan: Pepcid continues, patient without symptoms (4) DVT prophylaxis: Plan: lovenox is used for dvt prevention Admission and Anticipated Discharge Date Admission Date: January 10, 2021 Subjective Patient today is now refused blood draws and taken his IV out. According to urology note there is been a discussion with power of state's attorney's and those involved to proceed with nephrectomy to excise a very suspicious 6 cm renal mass. The patient's had stable vital signs, laboratory analysis has been normal on January 11, on presentation imaging of his brain without intracranial abnormalities, chest x-ray without active disease in the chest, EKG without acute changes. Patient denies any recent chest pain or dyspnea on exertion or orthopnea I believe the patient is acceptable surgical risk to proceed to nephrectomy Review of Systems Review of Systems: Unobtainable due to cognitive status Physical Exam Physical Exam: The patient appeared physically clinically stable but psychologically significantly depressed and diminished Vital signs as documented. Lungs are clear to auscultation and appear unlabored Cardiac exam, Rhythm is regular.. No murmurs, rubs or gallops. Abdominal exam reveals normal bowel sounds, soft non tender, no masses Extremities are nonedematous and both pedal pulses are normal. Neurologic exam is alert and oriented, no focal loss of strength or sensation Patient able to ambulate in the room without dyspnea or complaints of chest pain Skin is without bruises or rashes Results & Data Results & Data ([facility]) Vital Signs (Past 12 Hours) Vital Signs Temp Pulse Resp BP Pulse Ox 01/12/21 14:52 98.6 F 83 18 141/96 H 97 01/12/21 08:00 97.7 F 58 L 20 164/94 H 99 PG Care Time/CCT Total # of Minutes Spent Total Time Spent with Patient: Total time spent is greater than 50% in coordination of care (as documented) at patient's floor/unit and/or counseling patient: Coding Level of Care Code 54058 Subseq Hosp Care Lvl 2 Diagnoses Depression F33.2 Active/Remission status: currently active Depression Type: major depressive disorder Major depression episode severity: severe Major depression recurrence: recurrent Psychotic features: without psychotic features Mass of right kidney N28.89 Esophageal reflux K21.9 DVT prophylaxis Z29.9 (1) Depression Active/Remission status: currently active Depression Type: major depressive disorder Major depression episode severity: severe Major depression recurrence: recurrent Psychotic features: without psychotic features Qualified Code(s): F33.2 - Major depressive disorder, recurrent severe without psychotic features
[2021-01-12 17:22] LABS: Hematocrit (blood only) 44.6 % (42-52); Hemoglobin 15.1 g/dL (14.0-18.0); Mean Corpuscular Hgb Conc 33.9 g/dL (32-36); Mean Corpuscular Volume 88.5 fL (80-100); Mean Platelet Volume 9.9 fL (7.4-10.4); Platelet Count 316 K/uL (130-400); RDW Coefficient of Variation 13.7 % (11.5-14.5); RDW Standard Deviation 44.4 fL (36.4-46.3); Red Blood Count 5.04 M/uL (4.7-6.1); White Blood Count 9.21 K/uL (4.8-10.8)
[2021-01-12 17:46] LABS: Albumin Level 3.8 gm/dl (3.4-5.0); BUN Creatinine Ratio 18.1 (10-20); Calcium 9.3 mg/dl (8.5-10.1); Est GFR (African American) 103.9 ml/min; Est GFR (Non-African American) 89.6 ml/min; Potassium 3.8 mmol/L (3.5-5.1)
[2021-01-12 17:50] LABS: Albumin Globulin Ratio 0.9 (0.9-2); Bilirubin,Total 0.4 mg/dl (0.2-1); Globulin 4.4 gm/dl (2.5-4.0); Total Protein 8.2 gm/dl (6.4-8.2)
[2021-01-12] MEDS: THIAMINE HCL 100 MG TAB PO SCH (18:29)
--- NOTE | 2021-01-12 19:26 | Hospitalist Progress Note ---
Date of Service January 12, 2021 Assessment & Plan (1) Depression: Plan: Depression with wanting to find a way to where his body down and his life, psychiatric consultation suicide precautions are initiated Remains on Tegretol, clonazepam, mirtazapine, quetiapine as per his home dosing regiment recent TSH was checked. Pt did remove his IV and refused lab His brother called me in the afternoon and now states pt will have labs if his brother is there (2) Mass of right kidney: Plan: 6 cm exophytic right renal mass, urology recommended outpt nephrectomy, urine cytology negative but this is a poor test to determine malignancy, Urology as discussed the procedure with the patient's power of environmental attorney and his brother. Also with psychiatrist. They feel that the power of environmental attorney next in line will be the patient's son was present during discussions and they will proceed with scheduling surgical excision of his renal mass at the earliest possible convenient time (3) Esophageal reflux: Plan: Pepcid continues, patient without symptoms (4) DVT prophylaxis: Plan: lovenox is used for dvt prevention Admission and Anticipated Discharge Date Admission Date: January 10, 2021 Subjective Patient today is now refused blood draws and taken his IV out. According to urology note there is been a discussion with power of environmental attorney's and those i nvolved to proceed with nephrectomy to excise a very suspicious 6 cm renal mass. The patient's had stable vital signs, laboratory analysis has been normal on January 11, on presentation imaging of his brain without intracranial abnormalities, chest x-ray without active disease in the chest, EKG without acute changes. Patient denies any recent chest pain or dyspnea on exertion or orthopnea I believe the patient is acceptable surgical risk to proceed to nephrectomy Review of Systems Review of Systems: Mild distress and moderate fatigue no headache, no visual changes no speech or swallowing issues no chest pain, pressure or palpitations no shortness of breath, cough or wheezes no abdominal pain, nausea or vomiting, diarrhea states he has decreasd stool output for two weeks no dysuria, hematuria or frequency, states has some loss of control of his urine no focal joint pain or swelling no back pain, CVA tenderness or radicular pain no bruising, bleeding or rashes no focal signs of weakness or numbness or altered sensation no complaints of anxiety or depression.. Physical Exam Physical Exam: The patient appeared physically clinically stable but psychologically significantly depressed and diminished Vital signs as documented. Lungs are clear to auscultation and appear unlabored Cardiac exam, Rhythm is regular.. No murmurs, rubs or gallops. Abdominal exam reveals normal bowel sounds, soft non tender, no masses Extremities are nonedematous and both pedal pulses are normal. Neurologic exam is alert and oriented, no focal loss of strength or sensation Patient able to ambulate in the room without dyspnea or complaints of chest pain Skin is without bruises or rashes Results & Data Results & Data ([facility]) Vital Signs (Past 12 Hours) Vital Signs Temp Pulse Resp BP Pulse Ox 01/12/21 14:52 98.6 F 83 18 141/96 H 97 01/12/21 08:00 97.7 F 58 L 20 164/94 H 99 PG Care Time/CCT Total # of Minutes Spent Total Time Spent with Patient: Total time spent is greater than 50% in coordination of care (as documented) at patient's floor/unit and/or counseling patient: Coding Level of Care Code 33420 Subseq Hosp Care Lvl 2 Diagnoses Depression F33.2 Active/Remission status: currently active Depression Type: major depressive disorder Major depression episode severity: severe Major depression recurrence: recurrent Psychotic features: without psychotic features Mass of right kidney N28.89 Esophageal reflux K21.9 DVT prophylaxis Z29.9 (1) Depression Active/Remission status: currently active Depression Type: major depressive disorder Major depression episode severity: severe Major depression recurrence: recurrent Psychotic features: without psychotic features Qualified Code(s): F33.2 - Major depressive disorder, recurrent severe without psychotic features
[2021-01-12] MEDS: clonazePAM 1 MG TAB PO SCH (20:39)
[2021-01-12] MEDS: QUEtiapine FUMARATE 200 MG TAB PO SCH (20:40)
[2021-01-12] MEDS: MIRTAZAPINE TAB 15 MG TAB PO SCH (20:40)
[2021-01-12] MEDS: SENNA 8.6 MG TAB PO SCH (20:40)
[2021-01-13] MEDS: ENOXAPARIN INJ 40 MG/0.4 ML SYR SQ SCH ×2 (06:06→17:34)
[2021-01-13] MEDS: QUEtiapine FUMARATE 25 MG TABLET PO SCH ×2 (08:31→13:50)
[2021-01-13] MEDS: carBAMazepine 200 MG TABLET PO SCH ×2 (08:31→20:26)
[2021-01-13] MEDS: FAMOTIDINE 20 MG TAB PO SCH (08:32)
[2021-01-13] MEDS: LORATADINE 10 MG TAB PO SCH (08:32)
[2021-01-13] MEDS: THIAMINE HCL 100 MG TAB PO SCH (08:32)
--- NOTE | 2021-01-13 11:53 | Psychiatric Progress Note ---
Date of Service January 13, 2021 Impression / Recommendations Impression This is a 55-year-old male who has a past history of depression with psychotic features who presented to the emergency department with some weakness and weight loss and was found to have a mass on his kidney. Patient is also significantly depressed at this time and expressing suicidal ideation. 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 Patient will require inpatient hospitalization for safety, stabilization, medication management following his medical clearance from the medical floors. Patient's capacity to make health-related decisions is limited at this time. Although, he is agreeable to nephrectomy operation, his depression is significantly impairing his desire to go on. We were able to collaborate with family including brother and son who are also in agreement with the necessary procedure. We anticipate accepting patient to inpatient psychiatric unit following recovery from medical procedure. (1) Depression: Recommendations: Continue home dosages medications for now Patient will require inpatient psychiatric hospitalization following medical clearance 2 mg of Ativan p.o. as needed every 6 hours added to regimen to aid with preprocedure/test anxiety Please continue to keep patient on a one-to-one for suicidality Patient is not free to leave the hospital at this time Interval History Chief Complaint "I'm just lost". Subjective Subjective Patient was seen & assessed and interval progress reviewed with treatment team. Patient continues to present with depressed mood endorsing feeling "lost" and although agreeable to the upcoming renal procedure, ambivalent about the process. Patient also seems to be ambivalent about getting better in general. He seems to still have some delusional fixation on the cost of treatment despite being info rmed by family that he would not have to pay for this. Patient presents with flat affect and is difficult to engage although cooperative with questions. Yesterday patient was not cooperative with blood draws, unable to provide reasons as to his denial, just stated " whats the point?" Reports eating well and sleeping approximately 5 to 6 hours per night. Denies any side effects of the current medication regimen. I spent 30 minutes with the patient, 50% of which was dedicated to counselling and coordination of care. Physical Exam Psychiatric Orientation: alert, oriented to person, oriented to place and oriented to time Apperance: appropriately dressed Eye Contact: + poor eye contact Motor Behavior: + psychomotor retardation Speech: normal rate/rhythm/volume of speech Affect: + depressed affect, + flat affect and + blunted affect Mood: + depressed mood and + dysphoric mood Thought Process: + circumstantial thought process and + perseveration Thought Content: + cognitive distortions, + hopelessness, + worthlessness, + guilt and + self deprecation Suicidal Thoughts: + reports suicidal thoughts, + reports suicidal plan and + reports suicidal intent Homicidal Thoughts: denies homicidal thoughts Hallucinations: no auditory hallucinations and no visual hallucinations Cognition: recent memory grossly intact Estimated Intelligence: average estimated intelligence Insight: + limited insight Judgement: + poor judgement Vital Signs (Past 24 Hours) Last Vital Signs Temp 36.8 C 01/13/21 10:00 Pulse 65 01/13/21 10:00 Resp 16 01/13/21 10:00 BP 160/95 H 01/13/21 10:00 Pulse Ox 98 01/13/21 10:00 Results & Data ([facility]) Laboratory Results Laboratory Results - last 24 hr 01/12/21 01/12/21 01/12/21 17:01 17:01 17:01 WBC 9.21 RBC 5.04 Hgb 15.1 Hct 44.6 MCV 88.5 MCH 30.0 MCHC 33.9 RDW Std Deviation 44.4 RDW Coeff of Peter 13.7 Plt Count 316 MPV 9.9 Sodium Potassium Chloride Carbon Dioxide Anion Gap BUN Creatinine Est Cr Clr Drug Dosing Est GFR ( Amer) Est GFR (Non-Af Amer) BUN/Creatinine Ratio Glucose Calcium Total Bilirubin AST ALT Alkaline Phosphatase Total Protein Albumin Globulin Albumin/Globulin Ratio Whole Bld Vitamin B1 Pending RPR Pending 01/12/21 17:01 WBC RBC Hgb Hct MCV MCH MCHC RDW Std Deviation RDW Coeff of Peter Plt Count MPV Sodium 135 L D Potassium 3.8 Chloride 108 H Carbon Dioxide 25 Anion Gap 2.0 L BUN 17 Creatinine 0.94 Est Cr Clr Drug Dosing 98.0 Est GFR ( Amer) 103.9 Est GFR (Non-Af Amer) 89.6 BUN/Creatinine Ratio 18.1 Glucose 87 Calcium 9.3 Total Bilirubin 0.4 AST 13 L ALT 23 Alkaline Phosphatase 81 Total Protein 8.2 Albumin 3.8 Globulin 4.4 H Albumin/Globulin Ratio 0.9 Whole Bld Vitamin B1 RPR Current Inpatient Medications Current Inpatient Medications: Current Inpatient Medications Carbamazepine (Carbamazepine 200 Mg Tablet) 200 mg PO BID [facility]AC[facility] Stop: 02/09/21 20:59 Last Admin: 01/13/21 08:31 Dose: 200 mg Documented by: Clonazepam (Clonazepam 1 Mg Tab) 1 mg PO [facility] Stop: 02/09/21 20:59 Last Admin: 01/12/21 20:39 Dose: 1 mg Documented by: Enoxaparin Sodium (Enoxaparin Inj 40 Mg/0.4 Ml Syr) 40 mg SQ Q12H JACLYN Stop: 02/09/21 17:59 Last Admin: 01/13/21 06:06 Dose: Not Given Documented by: Famotidine (Famotidine 20 Mg Tab) 20 mg PO DAILY JACLYN Stop: 02/10/21 08:59 Last Admin: 01/13/21 08:32 Dose: 20 mg Documented by: Loratadine (Loratadine 10 Mg Tab) 10 mg PO QAM [facility] Stop: 02/10/21 08:59 Last Admin: 01/13/21 08:32 Dose: 10 mg Documented by: Lorazepam (Lorazepam 1 Mg Tab) 2 mg PO Q6 PRN PRN Reason: anxiety/ pre procedure/pretest Stop: 02/10/21 15:58 Mirtazapine (Mirtazapine Tab 15 Mg Tab) 30 mg PO [facility] Stop: 02/09/21 20:59 Last Admin: 01/12/21 20:40 Dose: 30 mg Documented by: Quetiapine Fumarate (Quetiapine Fumarate 200 Mg Tab) 200 mg PO [facility] Stop: 02/09/21 20:59 Last Admin: 01/12/21 20:40 Dose: 200 mg Documented by: Quetiapine Fumarate (Quetiapine Fumarate 25 Mg Tablet) 25 mg PO BID@0900,1400 [facility] Stop: 02/10/21 08:59 Last Admin: 01/13/21 08:31 Dose: 25 mg Documented by: Sennosides (Senna 8.6 Mg Tab) 17.2 mg PO [facility] Stop: 02/10/21 20:59 Last Admin: 01/12/21 20:40 Dose: 17.2 mg Documented by: Thiamine HCl (Thiamine Hcl 100 Mg Tab) 100 mg PO QAM [facility] Stop: 02/11/21 16:44 Last Admin: 01/13/21 08:32 Dose: 100 mg Documented by: (1) Depression Active/Remission status: currently active Depression Type: major depressive disorder Major depression episode severity: severe Major depression recurrence: recurrent Psychotic features: without psychotic features Qualified Code(s): F33.2 - Major depressive disorder, recurrent severe without psychotic features
--- NOTE | 2021-01-13 17:23 | Hospitalist Progress Note ---
Date of Service January 13, 2021 Assessment & Plan (1) Depression: Plan: Depression with wanting to find a way to where his body down and his life, psychiatric consultation suicide precautions are initiated Remains on Tegretol, clonazepam, mirtazapine, quetiapine as per his home dosing regiment recent TSH was checked. Ending RPR electrolytes are within repair on January 12 Update his brother Mónica on January 13 (2) Mass of right kidney: Plan: 6 cm exophytic right renal mass, urology recommended outpt nephrectomy, urine cytology negative but this is a poor test to determine malignancy, Urology as discussed the procedure with the patient's power of defense attorney and his brother. Also with psychiatrist. They feel that the power of defense attorney next in line will be the patient's son was present during discussions and they will proceed with scheduling surgical excision of his renal mass January [address] Gomez (3) Esophageal reflux: Plan: Pepcid continues, patient without symptoms (4) DVT prophylaxis: Plan: lovenox is used for dvt prevention will need to be held preoperatively Admission and Anticipated Discharge Date Admission Date: January 10, 2021 Subjective Patient today is now agreeable to proceeding with nephrectomy tentatively scheduled for January 15 at 11 AM. According to urology note there is been a discussion with power of defense attorney's and those involved to proceed with nephrectomy to excise a very suspicious 6 cm renal mass. The patient's remains with stable vital signs, laboratory analysis has been normal on January 11, on presentation imaging of his brain without intracranial abnormalities, chest x-ray without active disease in the chest, EKG without acute changes. Patient denies any recent chest pain or dyspnea on exertion or orthopnea I believe the patient is acceptable surgical risk to proceed to nephrectomy We will attempt that the patient be agreeable to preoperative laboratories checked on the to assure renal function and hemoglobin are stable preprocedure Review of Systems Review of Systems: Mild distress and moderate fatigue no headache, no visual changes no speech or swallowing issues no chest pain, pressure or palpitations no shortness of breath, cough or wheezes no abdominal pain, nausea or vomiting, no further complaints of constipation no dysuria, hematuria or frequency, states has some loss of control of his urine no focal joint pain or swelling no back pain, CVA tenderness or radicular pain no bruising, bleeding or rashes no focal signs of weakness or numbness or altered sensation Patient is both depressed and anxious Physical Exam Physical Exam: The patient appeared physically clinically stable but psychologically significantly depressed and diminished of emotion Vital signs as documented. Lungs are clear to auscultation and appear unlabored Cardiac exam, Rhythm is regular.. No murmurs, rubs or gallops. Abdominal exam reveals normal bowel sounds, soft non tender, no masses Extremities are nonedematous and both pedal pulses are normal. Neurologic exam is alert and oriented, no focal loss of strength or sensation Patient able to ambulate in the room without dyspnea or complaints of chest pain Skin is without bruises or rashes Results & Data Results & Data ([facility]) Vital Signs (Past 12 Hours) Vital Signs Temp Pulse Pulse Resp BP Pulse Ox 01/13/21 14:55 98.6 F 70 20 158/93 H 100 01/13/21 10:00 98.2 F 65 16 160/95 H 98 PG Care Time/CCT Total # of Minutes Spent Total Time Spent with Patient: Total time spent is greater than 50% in coordination of care (as documented) at patient's floor/unit and/or counseling patient: Coding Level of Care Code 22464 Subseq Hosp Care Lvl 2 Diagnoses Depression F33.2 Active/Remission status: currently active Depression Type: major depressive disorder Major depression episode severity: severe Major depression recurrence: recurrent Psychotic features: without psychotic features Mass of right kidney N28.89 Esophageal reflux K21.9 DVT prophylaxis Z29.9 (1) Depression Active/Remission status: currently active Depression Type: major depressive disorder Major depression episode severity: severe Major depression recurrence: recurrent Psychotic features: without psychotic features Qualified Code(s): F33.2 - Major depressive disorder, recurrent severe without psychotic features
[2021-01-13] MEDS: MIRTAZAPINE TAB 15 MG TAB PO SCH (20:26)
[2021-01-13] MEDS: QUEtiapine FUMARATE 200 MG TAB PO SCH (20:27)
[2021-01-13] MEDS: SENNA 8.6 MG TAB PO SCH (20:27)
[2021-01-13] MEDS: clonazePAM 1 MG TAB PO SCH (20:32)
[2021-01-14] MEDS: ENOXAPARIN INJ 40 MG/0.4 ML SYR SQ SCH (05:36)
[2021-01-14] MEDS: LORATADINE 10 MG TAB PO SCH (08:35)
[2021-01-14] MEDS: FAMOTIDINE 20 MG TAB PO SCH (08:35)
[2021-01-14] MEDS: carBAMazepine 200 MG TABLET PO SCH ×2 (08:35→20:20)
[2021-01-14] MEDS: QUEtiapine FUMARATE 25 MG TABLET PO SCH ×2 (08:35→14:28)
[2021-01-14] MEDS: THIAMINE HCL 100 MG TAB PO SCH (08:36)
--- NOTE | 2021-01-14 10:13 | Urology Progress Note ---
Date of Service January 14, 2021 Assessment & Plan (1) Mass of right kidney: Plan: 55 year-old male patient, with multiple comorbidities, admitted with depression, confusion, and unintentional weight loss, found to have a 6.0 cm central right renal mass. -Plan of care reviewed with Dr. Gomez. -Unfortunately patient continues to have significant depression and his capacity to make health-related decisions is limited at this time. -Prior discussion with Dr. Gomez, psychiatry, and patient's brother and son took place regarding plan and recommendations for treatment of right renal mass. -Surgical consent was completed and signed by both the brother and son. -Plan for right laparoscopic radical nephrectomy tomorrow. -NPO at midnight. -Chest x-ray and EKG in chart. COVID-19 negative. -Will cover with Ancef 2g IV preoperatively. -Recommend holding Lovenox. -Will continue to follow while inpatient. Admission and Anticipated Discharge Date Admission Date: January 10, 2021 Subjective Patient examined this AM, sitting in chair. He remains on 1:1 observation for suicidal precautions. Does not participate in conversation today when asked questions. Appears comfortable, no visible distress. Offers no complaints. Chart review: Afebrile Review of Systems Constitutional: as per Subjective / HPI Psychiatric: as per Subjective / HPI Physical Exam Constitutional: well developed and well nourished; no acute distress and not ill appearing Neck: normal visual inspection Respiratory: normal respiratory effort; no respiratory distress and no audible wheezes Psychiatric: Orientation: cooperative and + guarded Affect: + depressed affect and + flat affect Results & Data ([facility]) Vital Signs (Past 12 Hours) Vital Signs Temp Pulse Pulse Resp BP BP Pulse Ox 01/14/21 06:58 36.7 C 59 L 18 162/92 H 98 01/14/21 00:19 36.6 C 64 18 155/93 H 97 PG Care Time/CCT Total # of Minutes Spent Total Time Spent with Patient: Total time spent is greater than 50% in coordination of care (as documented) at patient's floor/unit and/or counseling patient: Coding Level of Care Code 44407 Subseq Hosp Care Lvl 2 Diagnoses Mass of right kidney N28.89
[2021-01-14] MEDS ORDERED: amLODIPine BESYLATE 5 MG TAB PO ONE (14:00)
--- NOTE | 2021-01-14 14:02 | Hospitalist Progress Note ---
Date of Service January 14, 2021 Assessment & Plan (1) Depression: Plan: Depression with wanting to find a way to where his body down and his life, psychiatric consultation suicide precautions are initiated Remains on Tegretol, clonazepam, mirtazapine, quetiapine as per his home dosing regiment recent TSH was checked. RPR electrolytes are within repair on January 12 will attempt to recheck labs and coagulation studies pre operatively (2) Mass of right kidney: Plan: 6 cm exophytic right renal mass, urology recommended outpt nephrectomy, urine cytology negative but this is a poor test to determine malignancy, Urology as discussed the procedure with the patient's power of attorney recruiter and his brother. Also with psychiatrist. They feel that the power of attorney recruiter next in line will be the patient's son was present during discussions and they will proceed with scheduling surgical excision of his renal mass January [address] Gomez (3) Esophageal reflux: Plan: Pepcid continues, patient without symptoms (4) Hypertension: Plan: With patient's blood pressure being up we will institute amlodipine therapy if the patient agrees to take it (5) DVT prophylaxis: Plan: lovenox is used for dvt prevention will need to be held preoperatively Admission and Anticipated Discharge Date Admission Date: January 10, 2021 Subjective pt is about his usual state is agreeable to lab work if family is around. he has no distress Review of Systems Review of Systems: Mild distress and moderate fatigue, pt has little expression and is bradykinetic no headache, no visual changes no speech or swallowing issues no chest pain, pressure or palpitations no shortness of breath, cough or wheezes no abdominal pain, nausea or vomiting, no further complaints of constipation no dysuria, hematuria or frequency, states has some loss of control of his urine no focal joint pain or swelling no back pain, CVA tenderness or radicular pain no bruising, bleeding or rashes no focal signs of weakness or numbness or altered sensation Patient is both depressed and anxious Physical Exam Physical Exam: The patient appeared physically clinically stable but psychologically significantly depressed and diminished of emotion Vital signs as documented. Lungs are clear to auscultation and appear unlabored Cardiac exam, Rhythm is regular.. No murmurs, rubs or gallops. Abdominal exam reveals normal bowel sounds, soft non tender, no masses Extremities are nonedematous and both pedal pulses are normal. Neurologic exam is alert and oriented, no focal loss of strength or sensation Patient able to ambulate in the room without dyspnea or complaints of chest pain Skin is without bruises or rashes Results & Data Results & Data ([facility]) Vital Signs (Past 12 Hours) Vital Signs Temp Pulse Resp BP Pulse Ox 01/14/21 06:58 98.1 F 59 L 18 162/92 H 98 PG Care Time/CCT Total # of Minutes Spent Total Time Spent with Patient: Total time spent is greater than 50% in coordination of care (as documented) at patient's floor/unit and/or counseling patient: Coding Level of Care Code 31732 Subseq Hosp Care Lvl 2 Diagnoses Depression F33.2 Active/Remission status: currently active Depression Type: major depressive disorder Major depression episode severity: severe Major depression recurrence: recurrent Psychotic features: without psychotic features Mass of right kidney N28.89 Esophageal reflux K21.9 DVT prophylaxis Z29.9 Hypertension I10 (1) Depression Active/Remission status: currently active Depression Type: major depressive disorder Major depression episode severity: severe Major depression recurrence: recurrent Psychotic features: without psychotic features Qualified Code(s): F33.2 - Major depressive disorder, recurrent severe without psychotic features
[2021-01-14] MEDS: SENNA 8.6 MG TAB PO SCH (20:20)
[2021-01-14] MEDS: clonazePAM 1 MG TAB PO SCH (21:32)
[2021-01-14] MEDS: QUEtiapine FUMARATE 200 MG TAB PO SCH (21:32)
[2021-01-14] MEDS: MIRTAZAPINE TAB 15 MG TAB PO SCH (21:33)
[2021-01-15] MEDS ORDERED: ceFAZolin 2000MG 2,000 MG/15 ML SYR IV SCH (06:00)
--- NOTE | 2021-01-15 08:44 | Urology Progress Note ---
Date of Service January 15, 2021 Assessment & Plan (1) Mass of right kidney: Plan: 55 year-old male patient, with multiple comorbidities, admitted with depression, confusion, and unintentional weight loss, found to have a 6.0 cm central right renal mass. - Plan of care reviewed with Dr. Gomez. - Patient continues to have significant depression and his capacity to make health-related decisions is limited at this time. - Prior discussion with Dr. Gomez, psychiatry, and patient's brother and son regarding plan and treatment recommendations. - Surgical consent was completed and signed by both the brother and son. - Plan for right laparoscopic radical nephrectomy today with Dr. Gomez. - Keep NPO. - Chest x-ray and EKG in chart. COVID-19 negative. - Will cover with Ancef 2g IV preoperatively. - Lovenox currently on hold for surgical procedure. - Will attempt preoperative lab work today if patient agreeable. Plan: plan for right radical nephrectomy Admission and Anticipated Discharge Date Admission Date: January 10, 2021 Subjective Patient examined this AM. He is awake and standing up in room at time of visit. He remains on 1:1 observation for suicidal precautions. Does not actively participate in conversation today, but answers yes/no to questions. Denies pain. No fever, chills, nausea or vomiting. No chest pain or shortness of breath. Appears comfortable, no visible distress. Offers no complaints. NPO since midnight. Chart review: Afebrile Review of Systems Constitutional: as per Subjective / HPI Respiratory: as per Subjective / HPI Cardiovascular: as per Subjective / HPI Gastrointestinal: as per Subjective / HPI Genitourinary: + as per Subjective / HPI Physical Exam Constitutional: well developed and well nourished; no acute distress and not ill appearing Respiratory: normal respiratory effort; no respiratory distress and no labored breathing Cardiovascular: Extremities: no pedal edema Gastrointestinal (Abdomen): Inspection/Auscultation: abdomen normal to inspection; abdomen not distended Musculoskeletal: Head/Neck/Chest: normocephalic and head atraumatic Skin: no rash to exposed skin Neurologic: moves all extremities and awake Psychiatric: Eye Contact: + poor eye contact Affect: + depressed affect and + flat affect Mood: + depressed mood Results & Data ([facility]) Vital Signs (Past 12 Hours) Vital Signs Temp Pulse Resp BP Pulse Ox 01/15/21 07:12 36.7 C 61 16 153/93 H 98 01/14/21 22:17 36.6 C 108 H 130/85 97 PG Care Time/CCT Total # of Minutes Spent Total Time Spent with Patient: Total time spent is greater than 50% in coordination of care (as documented) at patient's floor/unit and/or counseling patient: Coding Level of Care Code 87010 Subseq Hosp Care Lvl 2 Diagnoses Mass of right kidney N28.89
[2021-01-15 09:11] LABS: Basophils # (auto) 0.07 K/uL (0-0.2); Basophils % (auto) 0.8 %; Eosinophils # (auto) 0.15 K/uL (0-0.5); Eosinophils % (auto) 1.8 %; Hemoglobin 15.3 g/dL (14.0-18.0); Immature Granulocytes # (auto) 0.01 K/uL (0.00-0.02); Immature Granulocytes % (auto) 0.1 %; Lymphocytes # (auto) 1.79 K/uL (1.2-3.4); Lymphocytes % (auto) 21.3 %; Mean Corpuscular Hemoglobin 29.8 pg (25-34); Mean Corpuscular Hgb Conc 33.3 g/dL (32-36); Mean Corpuscular Volume 89.5 fL (80-100); Mean Platelet Volume 10.5 fL (7.4-10.4); Monocytes # (auto) 0.61 K/uL (0.11-0.59); Monocytes % (auto) 7.3 %; Neutrophils # (auto) 5.76 K/uL (1.4-6.5); Neutrophils % (auto) 68.7 %; Platelet Count 310 K/uL (130-400); RDW Coefficient of Variation 13.8 % (11.5-14.5); Red Blood Count 5.14 M/uL (4.7-6.1); White Blood Count 8.39 K/uL (4.8-10.8)
--- NOTE | 2021-01-15 09:39 | Anesthesiology Consultation ---
Date of Service January 15, 2021 Assessment & Plan (1) Encounter for pre-operative examination: Chart Review Chart Review: Acceptable Risk for Surgery History Surgery Operation Date: 01/15/21 11:00 Proposed Procedures p Right Laparoscopic Radical Nephrectomy - Colin Gomez MD Height/Weight Height: 5 ft 7 in Weight: 100.7 kg Allergies Allergy/AdvReac Type Severity Reaction Status Date / Time hydrocodone AdvReac Intermediate BECOMES Verified 01/10/21 14:23 MANIC naproxen AdvReac Mild RECTAL Verified 01/10/21 14:23 BLEEDING WITH EXTENDED USE Medications Home Medications Medication Instructions Recorded Confirmed Last Taken bismuth subsalicylate 262 mg/15 mL 15 ml PO PRN PRN #0 ml 10/08/20 01/10/21 Unknown oral suspension (Kaopectate (bismuth subsalicylate)) famotidine 20 mg tablet 20 mg PO DAILY #0 tab 10/08/20 01/10/21 01/10/21 oxymetazoline 0.05 % nasal spray 1 spray NA BID PRN #0 ml 10/08/20 01/10/21 Unknown (Nasal Ortley (oxymetazoline)) carbamazepine 200 mg tablet 200 mg PO BID 01/10/21 01/10/21 Unknown clonazepam 1 mg tablet 1.5 mg PO HS 01/10/21 01/12/21 01/09/21 mirtazapine 30 mg tablet 30 mg PO HS 01/10/21 01/10/21 01/09/21 quetiapine 200 mg tablet 200 mg PO HS 01/10/21 01/10/21 01/09/21 quetiapine 25 mg tablet 25 mg PO BID 01/10/21 01/10/21 01/10/21 sodium chloride 0.65 % nasal spray 1 - 2 spray NA PRN PRN 01/10/21 01/10/21 Unknown aerosol (Saline Mist) Active Medications Generic Name Dose Route Start Last Admin Trade Name Freq PRN Reason Stop Dose Admin Carbamazepine 200 mg 01/10/21 21:00 01/14/21 20:20 Carbamazepine 200 Mg Tablet PO 02/09/21 20:59 200 mg BID JACLYN Administration Clonazepam 1 mg 01/10/21 21:00 01/14/21 21:32 Clonazepam 1 Mg Tab PO 02/09/21 20:59 1 mg HS JACLYN Administration Enoxaparin Sodium 40 mg 01/10/21 18:00 01/14/21 05:36 Enoxaparin Inj 40 Mg/0.4 Ml Syr SQ 02/09/21 17:59 40 mg Q12H JACLYN Administration Famotidine 20 mg 01/11/21 09:00 01/14/21 08:35 Famotidine 20 Mg Tab PO 02/10/21 08:59 20 mg DAILY JACLYN Administration Loratadine 10 mg 01/11/21 09:00 01/14/21 08:35 Loratadine 10 Mg Tab PO 02/10/21 08:59 10 mg QAM JACLYN Administration Mirtazapine 30 mg 01/10/21 21:00 01/14/21 21:33 Mirtazapine Tab 15 Mg Tab PO 02/09/21 20:59 30 mg HS JACLYN Administration Quetiapine Fumarate 200 mg 01/10/21 21:00 01/14/21 21:32 Quetiapine Fumarate 200 Mg Tab PO 02/09/21 20:59 200 mg HS JACLYN Administration Quetiapine Fumarate 25 mg 01/11/21 09:00 01/14/21 14:28 Quetiapine Fumarate 25 Mg Tablet PO 02/10/21 08:59 25 mg BID@0900,1400 JACLYN Administration Sennosides 17.2 mg 01/11/21 21:00 01/14/21 20:20 Senna 8.6 Mg Tab PO 02/10/21 20:59 17.2 mg HS JACLYN Administration Thiamine HCl 100 mg 01/12/21 16:45 01/14/21 08:36 Thiamine Hcl 100 Mg Tab PO 02/11/21 16:44 100 mg QAM JACLYN Administration Past Medical History Medical History (Updated 01/15/21 @ 09:39 by Mak López MD) Cluster headache Confusion Medial meniscus tear Renal mass Past Family History Family History Mother Lymphoma Father Prostate cancer Grandmother (Maternal) Hypertension Other Diabetes Past Surgical History Surgical History H/O arthroscopic knee surgery History of rotator cuff surgery Social History Smoking Status: Never smoker Do You Dip or Chew Tobacco: No Hx Alcohol Use: Yes alcohol intake frequency: holidays/special occasions only Hx Substance Use: No substance use type: does not use Physical Exam Vital Signs Last Vital Signs Temp 36.7 C 01/15/21 07:12 Pulse 61 01/15/21 07:12 Resp 16 01/15/21 07:12 BP 153/93 H 01/15/21 07:12 Pulse Ox 98 01/15/21 07:12 Testing Laboratory Results 01/15/21 08:39 Urine Color Yellow 01/10/21 22:08 Urine Appearance Clear (Clear) 01/10/21 22:08 Urine pH 8.0 (4.5-7.5) H 01/10/21 22:08 Ur Specific [place] 1.022 (1.000-1.030) 01/10/21 22:08 Urine Protein Negative (Negative) 01/10/21 22:08 Urine Glucose (UA) Negative (Negative) 01/10/21 22:08 Urine Ketones Negative (Negative) 01/10/21 22:08 Urine Nitrite Negative (Negative) 01/10/21 22:08 Ur Leukocyte Esterase Negative (Negative) 01/10/21 22:08 Blood Type O Positive 01/14/21 15:43 Antibody Screen NEGATIVE 01/14/21 15:43 Laboratory Tests 01/12/21 01/15/21 17:01 08:39 Hgb 15.3 Plt Count 310 Potassium 3.8 Creatinine 0.94 Electrocardiogram Date: 01/10/21 Findings: + NSR @ (71) and + NSST changes Chest X-Ray Date: 01/10/21 Findings: + NAD
[2021-01-15 09:45] LABS: BUN Creatinine Ratio 15.4 (10-20); Calcium 9.2 mg/dl (8.5-10.1); Est GFR (African American) 98.8 ml/min; Est GFR (Non-African American) 85.2 ml/min; Potassium 3.9 mmol/L (3.5-5.1)
[2021-01-15] MEDS ORDERED: ACETAMINOPHEN 1000 MG/100 ML IV IV ONE (10:01)
[2021-01-15] MEDS ORDERED: ONDANSETRON INJ 2 MG/ML 2 ML VIAL IV PRN ×2 (10:49→14:55)
[2021-01-15] MEDS ORDERED: ATROPINE SULFATE 0.1 MG/ML 10ML SYR IV PRN (10:49)
[2021-01-15] MEDS ORDERED: KETOROLAC 30 MG/ML VIAL IV PRN (10:49)
[2021-01-15] MEDS ORDERED: fentaNYL citrate 100 MCG/2 ML VIAL IV PRN (10:49)
[2021-01-15] MEDS ORDERED: fentaNYL citrate 100 MCG/2 ML VIAL ONE (10:52)
[2021-01-15] MEDS ORDERED: MIDAZOLAM HCL 1 MG/ML 2ML VIAL ONE (10:52)
[2021-01-15] MEDS ORDERED: ceFAZolin 2000MG 2,000 MG/15 ML SYR IV ONE (10:59)
[2021-01-15] MEDS ORDERED: BUPIVACAINE 0.5 % 5 MG/1 ML MPF 30ML VIAL ONE (11:21)
[2021-01-15] MEDS: amLODIPine BESYLATE 5 MG TAB PO SCH (11:49)
[2021-01-15] MEDS: LORATADINE 10 MG TAB PO SCH (11:49)
[2021-01-15] MEDS: carBAMazepine 200 MG TABLET PO SCH ×2 (11:49→20:31)
[2021-01-15] MEDS: THIAMINE HCL 100 MG TAB PO SCH (11:49)
[2021-01-15] MEDS: QUEtiapine FUMARATE 25 MG TABLET PO SCH ×2 (11:49→15:58)
[2021-01-15] MEDS: FAMOTIDINE 20 MG TAB PO SCH (11:49)
[2021-01-15] MEDS ORDERED: LIDOCAINE 2% 2 ML VIAL/AMP(20MG/ML) INFIL ONE (12:18)
[2021-01-15] MEDS ORDERED: PROPOFOL IV EMULSION 10 MG/ML 20 ML VIAL IV ONE (12:18)
[2021-01-15] MEDS ORDERED: ROCURONIUM BROMIDE 10 MG/ML 5 ML VIAL IV ONE ×3 (12:20→13:09)
[2021-01-15] MEDS ORDERED: NEOSTIGMINE METHYLSULFATE 1 MG/ML 10ML VIAL ONE (13:02)
[2021-01-15] MEDS ORDERED: ONDANSETRON INJ 2 MG/ML 2 ML VIAL ONE (13:02)
[2021-01-15] MEDS ORDERED: GLYCOPYRROLATE 0.2 MG/ML VIAL ONE (13:02)
[2021-01-15] MEDS ORDERED: DEXAMETHASONE SOD INJ 4 MG/ML VIAL ONE (13:02)
[2021-01-15] MEDS ORDERED: ePHEDrine sulfate 50 MG/ML AMP ONE (13:09)
[2021-01-15] MEDS ORDERED: PHENYLEPHRINE 100MCG/ML 5ML SYR ONE (13:09)
[2021-01-15] MEDS ORDERED: HYDROmorphone INJ 2 MG/ML SYR/VIAL ONE (13:26)
[2021-01-15 14:22] LABS: Basophils # (auto) 0.03 K/uL (0-0.2); Basophils % (auto) 0.2 %; Eosinophils # (auto) 0.07 K/uL (0-0.5); Eosinophils % (auto) 0.6 %; Hematocrit (blood only) 42.3 % (42-52); Hemoglobin 13.9 g/dL (14.0-18.0); Immature Granulocytes # (auto) 0.02 K/uL (0.00-0.02); Immature Granulocytes % (auto) 0.2 %; Lymphocytes # (auto) 0.91 K/uL (1.2-3.4); Lymphocytes % (auto) 7.2 %; Mean Corpuscular Hemoglobin 29.5 pg (25-34); Mean Corpuscular Volume 89.8 fL (80-100); Monocytes # (auto) 0.31 K/uL (0.11-0.59); Monocytes % (auto) 2.4 %; Neutrophils # (auto) 11.37 K/uL (1.4-6.5); Neutrophils % (auto) 89.4 %; Platelet Count 263 K/uL (130-400); RDW Coefficient of Variation 13.6 % (11.5-14.5); RDW Standard Deviation 45.2 fL (36.4-46.3); Red Blood Count 4.71 M/uL (4.7-6.1); White Blood Count 12.71 K/uL (4.8-10.8)
[2021-01-15 14:27] LABS: Mean Corpuscular Hgb Conc 32.9 g/dL (32-36)
[2021-01-15 14:36] LABS: BUN Creatinine Ratio 13.6 (10-20); Calcium 8.4 mg/dl (8.5-10.1); Creatinine Clr Calc Pharmacy 80.8 ml/min; Est GFR (African American) 82.3 ml/min; Potassium 4.1 mmol/L (3.5-5.1)
[2021-01-15] MEDS ORDERED: MoRPHine SULFATE 2 MG/ML CARP IV PRN (14:55)
[2021-01-15] MEDS ORDERED: ACETAMINOPHEN 325 MG TAB PO PRN (14:55)
[2021-01-15] MEDS ORDERED: oxyCODONE HCL IR 5 MG TAB (IMMEDIATE RELEASE) PO PRN (14:55)
[2021-01-15] MEDS ORDERED: MoRPHine SULFATE 4 MG/ML 1 ML CARP\\VIAL IV PRN (14:55)
[2021-01-15] MEDS: LACTATED RINGER'S 1,000 ML IV SCH (15:15)
--- NOTE | 2021-01-15 15:15 | Operative Report ---
PG Post Operative Report Pre & Post Diagnosis Operation Date: 01/15/21 11:00 Pre-Op Diagnosis: Right Renal Mass Post-Op Diagnosis: Right Renal Mass I identified the patient and participated in the time-out.: Yes Procedure Operation Date: 01/15/21 11:00 Actual Procedures p Right Laparoscopic Radical Nephrectomy(Right) - Colin Gomez MD Surgeon Jv Gomez MD Security Control Assessor Neha Kumar Estimated Blood Loss 25 Findings Consistent with Post-Op Diagnosis Specimens kidney Description of Procedure Patient was identified in the preoperative holding area, appropriate informed consents reviewed and completed and he was transported to the operating suite. Upon arrival received appropriate preoperative antibiotics and general anesthesia. He was placed in the left side down right side up lateral decubitus position and the bed was flexed. He was padded and draped in standard fashion. A Kraus style incision was marked in the right lower quadrant and incision was made from the lateral border of the rectus muscle for approximately 8 cm in the lateral direction. I dissected through Denisa's fascia to identify the external oblique fascia. This was opened sharply and dissected. I then opened the internal oblique fascia followed by sharply incising the transversalis fascia and peritoneum. A finger sweep confirmed that there were no adhesions in this area. I open the incision and inspected. The colon was easily identified as was the appendix. I began to mobilize the colon by incising the white line of Toldt lateral to the colon and then carried my dissection superiorly and inferiorly for the maximal amount allowable through this incision. A GelPort was then placed and utilizing the GelPort I passed a 12 mm laparoscopic trocar and insufflated the abdomen. Full inspection was conducted utilizing a laparoscope through this 12 mm port. I marked 2 additional port sites along the border of the rectus muscle, one approximately 3 cm below the costal margin another approximately 8 cm below that. These 2 were placed directly onto my hand. I then utilized the GelPort as a hand assist port and laparoscope through one of the lap ports. Utilizing a harmonic scalpel I continued my incision of the white line of Toldt and medialization of the colon. I then incised the peritoneum between the upper aspect of the kidney and the liver. As well as laterally incising the peritoneum. Working back to the medial aspect of the kidney I was able to kocherized the duodenum and identify the inferior vena cava. I created a window between the cava and the lower pole of the kidney and elevated the kidney with my finger sliding behind the kidney and sweeping across the psoas muscle. I elevated the kidney and stretch the hilar structures as I dissected up the lateral aspect of the cave until I encountered the lower portion of the renal vein. The renal artery was easily palpable immediately behind the vein and I was able to pass a finger superior to the artery and vein and create another window between the adrenal gland and to the upper aspect of the renal vasculature. A staple load was passed across the vascular structures and they were controlled on a single load. I then dissected somewhat more superiorly and passed a second staple load across the top aspect of the kidney it from the adrenal gland. The remaining superior attachments were freed utilizing the harmonic scalpel as was the lateral attachments. The inferior pole of the kidney was controlled utilizing a third staple load which incorporated the ureter. The kidney was then entirely freed and collected and withdrawn from the hand port. After confirming excellent hemostasis. The colon was gently pushed back into the lateral position and the laparoscopic portion of the case concluded. I reapproximated the transversalis fascia utilizing a running 0 Vicryl followed by closure of the internal oblique fascia with the same 0 Vicryl and a third layer through the external oblique fascia with 0 Vicryl. All layers were infiltrated with half percent Marcaine. Denisa's fascia was reapproximated followed by closure of the skin with a running 4-0 Monocryl. The 2 laparoscopic ports were closed with the 0 Vicryl followed by a 4-0 Monocryl. Dermabond was placed over all incisions. The case was subsequently concluded. He was extubated and taken to the PACU in stable condition. There were no complications. eNha Kumar assisted from incision to closure. I attest to the content of the Intraoperative Record and any orders documented therein. Any exceptions are noted below.
--- NOTE | 2021-01-15 15:59 | Anesthesiology Progress Note ---
Date of Service January 15, 2021 Anesthesia Post Procedure Vital Signs Vital Signs: Temp Pulse Pulse Pulse Resp BP BP 01/15/21 15:55 36.9 C 53 L 18 153/81 H 01/15/21 15:25 36.6 C 51 L 20 172/97 H 01/15/21 15:11 52 L 16 171/94 H 01/15/21 14:55 36.5 C 51 L 16 153/86 H 01/15/21 14:30 36.8 C 54 L 15 140/83 01/15/21 14:20 57 L 11 L 138/89 01/15/21 14:10 59 L 9 L 137/78 01/15/21 13:59 36.4 C L 73 16 142/92 H 01/15/21 10:52 36.6 C 61 18 157/92 H 01/15/21 07:12 36.7 C 61 16 153/93 H 01/14/21 22:17 36.6 C 108 H 130/85 Pulse Ox 01/15/21 15:55 96 01/15/21 15:25 97 01/15/21 15:11 98 01/15/21 14:55 100 01/15/21 14:30 99 01/15/21 14:20 99 01/15/21 14:10 100 01/15/21 13:59 99 01/15/21 10:52 98 01/15/21 07:12 98 01/14/21 22:17 97 Transfer of Care Handoff Completed per policy Notes Mental Status: alert / awake / arousable Patient Amnestic to Procedure: Yes Nausea / Vomiting: adequately controlled Pain: adequately controlled Airway Patency, RR, SpO2: stable & adequate BP & HR: stable & adequate Hydration State: stable & adequate Anesthetic Complications: no major complications apparent
[2021-01-15] MEDS: oxyCODONE HCL IR 5 MG TAB (IMMEDIATE RELEASE) PO PRN ×2 (16:04→20:29)
--- NOTE | 2021-01-15 18:01 | Hospitalist Progress Note ---
Date of Service January 15, 2021 Assessment & Plan (1) Depression: Plan: Depression with wanting to find a way to where his body down and his life, psychiatric consultation suicide precautions are initiated Remains on Tegretol, clonazepam, mirtazapine, quetiapine as per his home dosing regiment recent TSH was checked. Once stable from a postoperative standpoint patient will moved to the psychiatric [facility] (2) Mass of right kidney: Plan: 6 cm exophytic right renal mass, urology recommended outpt nephrectomy, urine cytology negative but this is a poor test to determine malignancy, January 15, 2021 laproscopic right radical nephrectomy by Dr. Jv Gomez Patient is stable on the medical [facility] postoperatively (3) Esophageal reflux: Plan: Pepcid continues, patient without symptoms (4) Hypertension: Plan: With patient's blood pressure being up we did institute amlodipine therapy (5) DVT prophylaxis: Plan: lovenox is used for dvt prevention will need to be held preoperatively restarted postoperatively when hemostasis is achieved likely 24 hours Admission and Anticipated Discharge Date Admission Date: January 10, 2021 Subjective Patient was seen postoperatively he was lying in bed resting easily he only complained of minor amounts of pain voiding and hematuria. He did not request any additional pain medications Review of Systems Review of Systems: Mild distress and moderate fatigue, pt has little expression and is bradykinetic no headache, no visual changes no speech or swallowing issues no chest pain, pressure or palpitations no shortness of breath, cough or wheezes Minor postoperative abdominal pain no dysuria, hematuria or frequency, states has some loss of control of his urine no focal joint pain or swelling no back pain, CVA tenderness or radicular pain no bruising, bleeding or rashes no focal signs of weakness or numbness or altered sensation Patient is both depressed and anxious Physical Exam Physical Exam: The patient appeared physically clinically stable but remains with psychologically significantly depression and diminished of emotion Vital signs as documented. Lungs are clear to auscultation and appear unlabored Cardiac exam, Rhythm is regular.. No murmurs, rubs or gallops. Abdominal exam reveals the incisions are dressed in the central abdomen. Bowel sounds are present at this time minor tenderness to examination Extremities are nonedematous and both pedal pulses are normal. Neurologic exam is alert and oriented, no focal loss of strength or sensation Patient able to ambulate in the room without dyspnea or complaints of chest pain Skin is without bruises or rashes Results & Data Results & Data ([facility]) Vital Signs (Past 12 Hours) Vital Signs Temp Pulse Pulse Pulse Resp BP BP 01/15/21 16:57 98.1 F 59 L 20 151/81 H 01/15/21 15:55 98.4 F 53 L 18 153/81 H 01/15/21 15:25 97.9 F 51 L 20 172/97 H 01/15/21 15:11 52 L 16 171/94 H 01/15/21 14:55 97.7 F 51 L 16 153/86 H 01/15/21 14:30 98.2 F 54 L 15 140/83 01/15/21 14:20 57 L 11 L 138/89 01/15/21 14:10 59 L 9 L 137/78 01/15/21 13:59 97.5 F L 73 16 142/92 H 01/15/21 10:52 97.9 F 61 18 157/92 H 01/15/21 07:12 98.1 F 61 16 153/93 H Pulse Ox 01/15/21 16:57 97 01/15/21 15:55 96 01/15/21 15:25 97 01/15/21 15:11 98 01/15/21 14:55 100 01/15/21 14:30 99 01/15/21 14:20 99 01/15/21 14:10 100 01/15/21 13:59 99 01/15/21 10:52 98 01/15/21 07:12 98 PG Care Time/CCT Total # of Minutes Spent Total Time Spent with Patient: Total time spent is greater than 50% in coordination of care (as documented) at patient's floor/unit and/or counseling patient: Coding Level of Care Code 96972 Subseq Hosp Care Lvl 2 Diagnoses Depression F33.2 Active/Remission status: currently active Depression Type: major depressive disorder Major depression episode severity: severe Major depression recurrence: recurrent Psychotic features: without psychotic features Mass of right kidney N28.89 Esophageal reflux K21.9 Hypertension I10 DVT prophylaxis Z29.9 (1) Depression Active/Remission status: currently active Depression Type: major depressive disorder Major depression episode severity: severe Major depression recurrence: recurrent Psychotic features: without psychotic features Qualified Code(s): F33.2 - Major depressive disorder, recurrent severe without psychotic features
[2021-01-15] MEDS: SENNA 8.6 MG TAB PO SCH (20:30)
[2021-01-15] MEDS: MIRTAZAPINE TAB 15 MG TAB PO SCH (20:31)
[2021-01-15] MEDS: QUEtiapine FUMARATE 200 MG TAB PO SCH (20:32)
[2021-01-15] MEDS: clonazePAM 1 MG TAB PO SCH (20:37)
[2021-01-15] MEDS: ceFAZolin 2000MG 2,000 MG/15 ML SYR IV SCH (20:49)
[2021-01-16] MEDS: LACTATED RINGER'S 1,000 ML IV SCH ×2 (00:34→09:04)
[2021-01-16] MEDS: ceFAZolin 2000MG 2,000 MG/15 ML SYR IV SCH (05:06)
--- NOTE | 2021-01-16 07:54 | Hospitalist Progress Note ---
Date of Service January 16, 2021 Assessment & Plan (1) Depression: Plan: Depression with wanting to find a way to where his body down and his life, psychiatric consultation suicide precautions are initiated Remains on Tegretol, clonazepam, mirtazapine, quetiapine as per his home dosing regiment recent TSH was checked. Once stable from a postoperative standpoint patient will moved to the psychiatric [facility], anticipate 01/18/21 (2) Mass of right kidney: Plan: 6 cm exophytic right renal mass, urology recommended outpt nephrectomy, urine cytology negative but this is a poor test to determine malignancy, January 15, 2021 laproscopic right radical nephrectomy by Dr. Jv Gomez Patient is stable on the medical [facility] postoperatively, still some post op pain and advancing diet (3) Esophageal reflux: Plan: Pepcid continues, patient without symptoms (4) Hypertension: Plan: With patient's blood pressure being up we did institute amlodipine therapy (5) DVT prophylaxis: Plan: lovenox is used for dvt prevention will need to be held preoperatively restarted postoperatively when hemostasis is achieved likely 24 hours Admission and Anticipated Discharge Date Admission Date: January 10, 2021 Subjective More interactive today however then clams up and stops interacting Reports that he had an uncomfortable evening with pain around his surgical incisions, x ray with only post op changes Had a difficult time sleeping Urinating adequately Some indigestion but otherwise tolerating a diet well Has not ambulated since surgery Review of Systems Review of Systems: Mild distress and moderate fatigue, pt has little expression and is bradykinetic no headache, no visual changes no speech or swallowing issues no chest pain, pressure or palpitations no shortness of breath, cough or wheezes Minor postoperative abdominal pain no dysuria, hematuria or frequency, states has some loss of control of his urine no focal joint pain or swelling no back pain, CVA tenderness or radicular pain no bruising, bleeding or rashes no focal signs of weakness or numbness or altered sensation Patient is both depressed and anxious Physical Exam Physical Exam: The patient appeared physically clinically stable but remains with psychologically significantly depression and diminished of emotion Vital signs as documented. Lungs are clear to auscultation and appear unlabored Cardiac exam, Rhythm is regular.. No murmurs, rubs or gallops. Abdominal exam reveals the incisions are dressed in the central abdomen. Bowel sounds are present at this time minor tenderness to examination Extremities are nonedematous and both pedal pulses are normal. Neurologic exam is alert and oriented, no focal loss of strength or sensation Patient able to ambulate in the room without dyspnea or complaints of chest pain Skin is without bruises or rashes Results & Data Results & Data ([facility]) Vital Signs (Past 12 Hours) Vital Signs Temp Pulse Resp BP Pulse Ox 01/16/21 03:59 98.6 F 92 H 20 131/78 96 01/15/21 21:21 98.4 F 102 H 20 159/88 H 96 PG Care Time/CCT Total # of Minutes Spent Total Time Spent with Patient: Total time spent is greater than 50% in coordination of care (as documented) at patient's floor/unit and/or counseling patient: Coding Level of Care Code 46351 Subseq Hosp Care Lvl 2 Diagnoses Depression F33.2 Active/Remission status: currently active Depression Type: major depressive disorder Major depression episode severity: severe Major depression recurrence: recurrent Psychotic features: without psychotic features Mass of right kidney N28.89 Esophageal reflux K21.9 Hypertension I10 DVT prophylaxis Z29.9 (1) Depression Active/Remission status: currently active Depression Type: major depressive disorder Major depression episode severity: severe Major depression recurrence: recurrent Psychotic features: without psychotic features Qualified Code(s): F33.2 - Major depressive disorder, recurrent severe without psychotic features
[2021-01-16] MEDS: carBAMazepine 200 MG TABLET PO SCH ×2 (08:06→23:31)
[2021-01-16] MEDS: LORATADINE 10 MG TAB PO SCH (08:06)
[2021-01-16] MEDS: FAMOTIDINE 20 MG TAB PO SCH (08:07)
[2021-01-16] MEDS: QUEtiapine FUMARATE 25 MG TABLET PO SCH ×2 (08:07→13:45)
[2021-01-16] MEDS: amLODIPine BESYLATE 5 MG TAB PO SCH (08:07)
[2021-01-16] MEDS: THIAMINE HCL 100 MG TAB PO SCH (08:07)
--- NOTE | 2021-01-16 10:11 | XRay Report ---
XR chest 1V portable HISTORY: 55 years-old Male SOB no hypoxia acute shortness of breath COMPARISON: Chest radiograph and CT abdomen and pelvis 01/10/2021 TECHNIQUE: AP view of the chest FINDINGS: Bilateral subdiaphragmatic lucency is are new from prior. The heart is mildly enlarged. Mild bibasila r opacities without pneumothorax, large pleural effusion or overt pulmonary edema. Degenerative cardoso es of the shoulders and spine. IMPRESSION: 1. New subdiaphragmatic lucencies suggestive of pneumoperitoneum. Correlation with CT of the abdomen and pelvis recommended. 2. Cardiomegaly with mild bibasilar opacities suggestive of atelectasis. ACT 112: Negative or not required by law. The above report was generated using voice recognition software. It may contain grammatical, syntax o r spelling errors. Electronically signed by: Edgard Barry M.D. 01/16/2021 10:10 AM
--- NOTE | 2021-01-16 11:02 | Urology Progress Note ---
Date of Service January 16, 2021 Assessment & Plan (1) Renal mass: Plan: Postop day #1 status post right radical nephrectomy Doing extremely well thus far Continue diet Hep-Lock IV fluid Ambulate Okay to shower if he desiresimportant to maintain lifting restrictions for 4 to 6 weeks (no more than 25 pounds) I will plan for lab evaluation tomorrow morning, if still stable, likely could move to a psychiatric floor Admission and Anticipated Discharge Date Admission Date: January 10, 2021 Subjective More interactive today than he has been over my past visits with him Reports that he had an uncomfortable evening with pain around his surgical incisions Had a difficult time sleeping Urinating adequately Some indigestion but otherwise tolerating a diet well Has not ambulated since surgery Physical Exam Constitutional: well developed and well nourished Respiratory: no respiratory distress Cardiovascular: Extremities: no pedal edema Gastrointestinal (Abdomen): Dressings removedsurgical incisions very appropriate Dermabond in place No bruising No drainage No erythema Abdomen soft Results & Data ([facility]) Vital Signs (Past 12 Hours) Vital Signs Temp Pulse Pulse Resp BP BP Pulse Ox 01/16/21 08:11 37.0 C 91 H 18 150/95 H 96 01/16/21 03:59 37.0 C 92 H 20 131/78 96 PG Care Time/CCT Total # of Minutes Spent Total Time Spent with Patient: Total time spent is greater than 50% in coordination of care (as documented) at patient's floor/unit and/or counseling patient: Coding Level of Care Code 73566 Subseq Hosp Care Lvl 2 Diagnoses Renal mass N28.89
[2021-01-16] MEDS: SENNA 8.6 MG TAB PO SCH (23:31)
[2021-01-16] MEDS: QUEtiapine FUMARATE 200 MG TAB PO SCH (23:31)
[2021-01-16] MEDS: MIRTAZAPINE TAB 15 MG TAB PO SCH (23:31)
[2021-01-16] MEDS: clonazePAM 1 MG TAB PO SCH (23:31)
[2021-01-17] MEDS ORDERED: METOPROLOL TARTRATE 25 MG TAB PO STA
[2021-01-17 06:19] LABS: Basophils # (auto) 0.04 K/uL (0-0.2); Basophils % (auto) 0.4 %; Eosinophils # (auto) 0.11 K/uL (0-0.5); Hematocrit (blood only) 41.1 % (42-52); Hemoglobin 13.8 g/dL (14.0-18.0); Immature Granulocytes # (auto) 0.02 K/uL (0.00-0.02); Immature Granulocytes % (auto) 0.2 %; Lymphocytes # (auto) 1.27 K/uL (1.2-3.4); Lymphocytes % (auto) 11.8 %; Mean Corpuscular Hemoglobin 29.8 pg (25-34); Mean Corpuscular Hgb Conc 33.6 g/dL (32-36); Mean Corpuscular Volume 88.8 fL (80-100); Mean Platelet Volume 10.4 fL (7.4-10.4); Monocytes # (auto) 0.86 K/uL (0.11-0.59); Neutrophils # (auto) 8.47 K/uL (1.4-6.5); Neutrophils % (auto) 78.6 %; Platelet Count 276 K/uL (130-400); RDW Coefficient of Variation 14.2 % (11.5-14.5); RDW Standard Deviation 46.2 fL (36.4-46.3); Red Blood Count 4.63 M/uL (4.7-6.1); White Blood Count 10.77 K/uL (4.8-10.8)
[2021-01-17 06:57] LABS: BUN Creatinine Ratio 14.1 (10-20); Calcium 9.1 mg/dl (8.5-10.1); Creatinine Clr Calc Pharmacy 59.1 ml/min; Est GFR (African American) 56.3 ml/min; Est GFR (Non-African American) 48.6 ml/min; Potassium 4.3 mmol/L (3.5-5.1)
[2021-01-17] MEDS: FAMOTIDINE 20 MG TAB PO SCH (07:39)
[2021-01-17] MEDS: THIAMINE HCL 100 MG TAB PO SCH (07:39)
[2021-01-17] MEDS: amLODIPine BESYLATE 5 MG TAB PO SCH (07:39)
[2021-01-17] MEDS: LORATADINE 10 MG TAB PO SCH (07:39)
[2021-01-17] MEDS: QUEtiapine FUMARATE 25 MG TABLET PO SCH ×2 (07:39→13:15)
[2021-01-17] MEDS: carBAMazepine 200 MG TABLET PO SCH ×2 (07:39→20:46)
--- NOTE | 2021-01-17 09:50 | Urology Progress Note ---
Date of Service January 17, 2021 Assessment & Plan (1) Renal mass: Plan: Postop day #2 status post right radical nephrectomy Improving appropriately Straight cath as needed PVR greater than 500 Labs appropriate Overall, likely close to being stable enough to transfer to a psych shee[facility] Admission and Anticipated Discharge Date Admission Date: January 10, 2021 Subjective Overall seems to be making appropriate progress Is tolerating a diet Reports that he is ambulated He did require straight cath x1 yesterday but otherwise has been voiding, feels his bladder may be somewhat full now Creatinine appropriate 1.56 Stable hemoglobin Pain improving Physical Exam Physical Exam: Incisions appropriate, no bruising, no erythema, no drainage Results & Data ([facility]) Vital Signs (Past 12 Hours) Vital Signs Temp Pulse Pulse Resp BP BP Pulse Ox 01/17/21 01:23 37.3 C 110 H 24 135/89 01/17/21 00:41 120 H 01/17/21 00:05 37.4 C 131 H 24 150/98 H 94 01/16/21 23:43 37.4 C 104 H 16 175/115 H 96 PG Care Time/CCT Total # of Minutes Spent Total Time Spent with Patient: Total time spent is greater than 50% in coordination of care (as documented) at patient's floor/unit and/or counseling patient: Coding Level of Care Code 06035 Subseq Hosp Care Lvl 2 Diagnoses Renal mass N28.89
--- NOTE | 2021-01-17 12:37 | Hospitalist Progress Note ---
Date of Service January 17, 2021 Assessment & Plan (1) Depression: Plan: Depression with wanting to find a way to wear his body down and and his life, psychiatric consultation suicide precautions are initiated Psychiatric evaluation does not feel he is significant threat to himself at this time. Dr. Saavedra has accepted the patient for transfer to behavioral health unit on 01/18/2021 Remains on Tegretol, clonazepam, mirtazapine, quetiapine as per his home dosing regiment recent TSH was checked. Once stable from a postoperative standpoint patient will moved to the psychiatric [facility]ehan, anticipate 01/18/21. With exception of some urinary retention the patient's postoperative state has been stable to this point (2) Mass of right kidney: Plan: 6 cm exophytic right renal mass, urology recommended outpt nephrectomy, urine cytology negative but this is a poor test to determine malignancy, January 15, 2021 laproscopic right radical nephrectomy by Dr. Jv Gomez's no pathology in the EMR to review at this point in time Patient is stable on the medical sheehan postoperatively, tolerating advancing diet having very little pain issue remains post void residual initiating Flomax the rapy (3) Esophageal reflux: Plan: Pepcid continues, patient without symptoms (4) Hypertension: Plan: With patient's blood pressure being up we did institute amlodipine therapy (5) DVT prophylaxis: Plan: Postoperatively the patient is ambulating well enoxaparin was on hold prior to surgery this may be discontinued as the patient is anticipated to moved to behavioral health unit will be able to move about freely. Admission and Anticipated Discharge Date Admission Date: January 10, 2021 Subjective Patient is in his usual withdrawn state he is ambulating about his room he just reportedly micturated in the bathroom this is been a challenge since his postoperative state neurology has seen and feels this is typical postoperative recovery Review of Systems Review of Systems: Mild distress and fatigue no headache, no visual changes no speech or swallowing issues no chest pain, pressure or palpitations no shortness of breath, cough or wheezes Mild abdominal pain, nausea or vomiting, diarrhea or constipation Some difficulty urinating but no hematuria no focal joint pain or swelling no back pain, CVA tenderness or radicular pain no bruising, bleeding or rashes no focal signs of weakness or numbness or altered sensation no complaints of anxiety or depression.. Physical Exam Physical Exam: The patient appeared well nourished and normally developed. Vital signs as documented. Head exam is normocephalic atraumatic Neck is without JVD, thyromegaly, or carotid bruits. Lungs are clear to auscultation, no focal loss of breath sounds Cardiac exam, Rhythm is regular.. No murmurs, rubs or gallops. Abdominal exam reveals normal bowel sounds, soft only mild tenderness midline incisions are clean dry intact Extremities are nonedematous and both pedal pulses are present Neurologic exam is alert and oriented, slow speech typically getting stuck on thoughts ambulating about his room Skin is without bruises or rashes Psychologically is with turned for bipolar depression Results & Data Results & Data ([facility]) Vital Signs (Past 12 Hours) Vital Signs Temp Pulse Pulse Resp BP BP Pulse Ox 01/17/21 10:59 98.8 F 103 H 18 173/98 H 94 01/17/21 01:23 99.1 F 110 H 24 135/89 01/17/21 00:41 120 H PG Care Time/CCT Total # of Minutes Spent Total Time Spent with Patient: Total time spent is greater than 50% in coordination of care (as documented) at patient's floor/unit and/or counseling patient: Coding Level of Care Code 75133 Subseq Hosp Care Lvl 2 Diagnoses Depression F33.2 Active/Remission status: currently active Depression Type: major depressive disorder Major depression episode severity: severe Major depression recurrence: recurrent Psychotic features: without psychotic features Mass of right kidney N28.89 Esophageal reflux K21.9 Hypertension I10 DVT prophylaxis Z29.9 (1) Depression Active/Remission status: currently active Depression Type: major depressive disorder Major depression episode severity: severe Major depression recurrence: recurrent Psychotic features: without psychotic features Qualified Code(s): F33.2 - Major depressive disorder, recurrent severe without psychotic features
[2021-01-17] MEDS: QUEtiapine FUMARATE 200 MG TAB PO SCH (20:47)
[2021-01-17] MEDS: SENNA 8.6 MG TAB PO SCH (20:47)
[2021-01-17] MEDS: MIRTAZAPINE TAB 15 MG TAB PO SCH (20:47)
[2021-01-17] MEDS: clonazePAM 1 MG TAB PO SCH (20:52)
[2021-01-17] MEDS ORDERED: TAMSULOSIN HCL 0.4 MG CAP PO SCH (21:00)
[2021-01-18] MEDS: THIAMINE HCL 100 MG TAB PO SCH (08:09)
[2021-01-18] MEDS: QUEtiapine FUMARATE 25 MG TABLET PO SCH ×2 (08:09→13:31)
[2021-01-18] MEDS: LORATADINE 10 MG TAB PO SCH (08:10)
[2021-01-18] MEDS: carBAMazepine 200 MG TABLET PO SCH (08:10)
[2021-01-18] MEDS: amLODIPine BESYLATE 5 MG TAB PO SCH (08:10)
[2021-01-18] MEDS: FAMOTIDINE 20 MG TAB PO SCH (08:10)
--- NOTE | 2021-01-18 08:52 | Urology Progress Note ---
Date of Service January 18, 2021 Assessment & Plan (1) Renal mass: Plan: 55 year-old male patient, with multiple comorbidities, admitted with depression, confusion, and unintentional weight loss, found to have a 6.0 cm central right renal mass. - Postop day #3 s/p right radical nephrectomy with Dr. Gomez - Doing well, progressing as expected. - Afebrile, Labs reviewed -creatinine 1.78 today. - Minimal pain. - Tolerating diet. - Voiding spontaneously, output appears adequate. - Continue to monitor. - Continue prn bladder scan, straight cath as needed for PVR > 500. - Stable for transfer to psych [facility] from [facility]. - Will arrange follow-up with urology service following discharge. - Thank you for allowing us to participate in the acute care of Mr. Sales. Please reconsult us with additional questions, concerns or changes in patient status. Admission and Anticipated Discharge Date Admission Date: January 10, 2021 Subjective Patient examined this AM at bedside. He is awake and ambulating in room at time of visit. Appears comfortable, no visible distress. He remains on 1:1 observation. Answers yes/no to questions. Denies pain. Denies difficulty with urination. Denies hematuria and dysuria. Tolerating diet, no nausea or vomiting. No fevers. Offers no additional complaints. Chart review: Afebrile Last bladder scan 01/17 @ 15:38 for 360ml. Urine output overnight - 650ml Review of Systems Constitutional: as per Subjective / HPI Gastrointestinal: as per Subjective / HPI Genitourinary: + as per Subjective / HPI Physical Exam Constitutional: well developed and well nourished; no acute distress and not ill appearing Respiratory: normal respiratory effort; no respiratory distress and no labored breathing Gastrointestinal (Abdomen): Inspection/Auscultation: abdomen normal to inspection and + abdominal surgical incision (Incisions appropriate, no bruising, no erythema, no drainage); abdomen not distended Musculoskeletal: Head/Neck/Chest: normocephalic and head atraumatic Skin: no rash to exposed skin Neurologic: moves all extremities and awake Psychiatric: Eye Contact: + poor eye contact Affect: + flat affect Results & Data ([facility]) Vital Signs (Past 12 Hours) Vital Signs Temp Pulse Resp BP Pulse Ox 01/18/21 02:36 37 C 102 H 16 143/93 H 97 PG Care Time/CCT Total # of Minutes Spent Total Time Spent with Patient: Total time spent is greater than 50% in coordination of care (as documented) at patient's floor/unit and/or counseling patient: Coding Level of Care Code 44941 Subseq Hosp Care Lvl 2 Diagnoses Renal mass N28.89
[2021-01-18 09:04] LABS: BUN Creatinine Ratio 15.8 (10-20); Calcium 9.3 mg/dl (8.5-10.1); Creatinine Clr Calc Pharmacy 51.8 ml/min; Est GFR (Non-African American) 41.4 ml/min; Potassium 4.6 mmol/L (3.5-5.1)
[2021-01-18] MEDS ORDERED: LACTATED RINGER'S 1,000 ML IV SCH (10:00)
--- NOTE | 2021-01-18 13:33 | Discharge Summary ---
Date of Service January 18, 2021 Admission HPI Per Admitting Provider Patient is a 55-year-old male who is brought in by his physician brother for short-term memory issues and a 65 pound weight loss. In September of this year the patient presented to [facility] emergency department with a complaint for depression, at that time he attempted to climb [place] to induce a medical emergency to which he would pass away from. He was seen in the emergency department and was evaluated by psychiatry. Most recently the patient was with his brother who is a physician in [place], Mauri Sales MD ([email or web address])) and was also seen by additional family members who are also healthcare providers and felt that the patient was significantly off from his normal baseline. His the patient's son is leaving for college education, the patient had been residing with his 90+-year-old father who is unable to care for the patient, the patient's brother will be leaving in the next 1 to 2 days and they felt it was unsafe for him to be at home as he has had several issues with short-term memory. During evaluation today in the emergency department he did not have any symptomatic complaints, no chest pain, shortness of breath, abdominal pain, change in bowel habits, diarrhea, constipation. His laboratory analysis was largely unremarkable, they did obtain a CT scan of the head and abdomen pelvis CT head was unremarkable in the abdomen pelvis that found a 6 cm lesion concerning for renal cell carcinoma Principal Diagnosis depression, incidental finding of renal mass Discharge Exam gen awake, flat affect, nad. heent nc at mmm breathing unlabored no accessory muscles good effort abd soft nd nt no masses ext no cyanosis skin no rashes no pallor or icterus Discharge Data Allergies Allergy/AdvReac Type Severity Reaction Status Date / Time hydrocodone AdvReac Intermediate BECOMES Verified 01/10/21 14:23 MANIC naproxen AdvReac Mild RECTAL Verified 01/10/21 14:23 BLEEDING WITH EXTENDED USE Consultations 01/10/21 14:53 ED Decision to Admit Stat 01/10/21 15:30 Consult Neurology Routine Consult Urology Routine 01/10/21 17:44 Consult Behavioral Health Liaison Routine 01/11/21 08:42 Consult Psychiatry Routine Procedures Performed Operation Date: 01/15/21 11:00 Actual Procedures p Right Laparoscopic Radical Nephrectomy(Right) - Colin Gomez MD Ordered Studies 01/10/21 11:26 CT abd pelvis IV con only Stat CT head/brain wo con Stat 01/10/21 15:30 MR brain wo/w con Routine Hospital Course (1) Depression: requiring intensive treatment - set up for inpatient psych - medically stable for transfer to inpatient psych at this time (2) Mass of right kidney: 6 cm exophytic right renal mass s/p radical nephrectomy on 01/15. doing well post op. creatinine deni some - would be anticipated with this kind of surgery - please follow PO intake and encourage minimum 60oz (ideally closer to 80, but 60 minimum) of PO fluid intake, and follow BMP again 01/20, then periodically thereafter as clinically warranted. (3) Esophageal reflux: (4) Hypertension: continue amlodipine (5) DVT prophylaxis: was on ambulation, amlodipine Total Time Total Time Spent Total Time Spent (In Minutes): <30 Discharge Plan Discharge Items Patient Disposition: Transfer Behavioral Health Fac Reason For Visit: RENAL MASS Discharge Diagnosis: depression Activity: Resume your previous activity Non-emergency contact: Primary Care Provider, Urologist and Psychiatrist Call non-emergency contact if: you have any medication questions and your symptoms worsen Follow-up/Referrals: Pro,Dayron Zamora MD [Primary Care Provider] - Diet: Regular Diet Comment: 60oz fluid minimum per day, ideally more Addtl Attending Provider Instructions: please follow BMP on 01/20 and then potentially periodically thereafter to ensure creatinine levels. rise not unexpected after nephrectomy, but would want to ensure this reaches a plateau at/around current range Pending Studies at Discharge: No Stand-Alone Forms: My [facility] Medications and DC Order Prescriptions: New tamsulosin 0.4 mg Capsule 0.4 mg PO HS Qty: 1 RF: 0 amlodipine [Norvasc] 5 mg Tablet 5 mg PO QAM Qty: 1 RF: 0 clonazepam 1 mg Tablet 1 mg PO HS Qty: 1 RF: 0 oxycodone 5 mg Tablet 5 mg PO Q4H PRN (Reason: pain) Qty: 1 RF: 0 thiamine HCl (vitamin B1) [Vitamin B-1] 100 mg Tablet 100 mg PO QAM Qty: 1 RF: 0 Continued famotidine 20 mg Tablet 20 mg PO DAILY Qty: 0 RF: 0 mirtazapine 30 mg tablet 30 mg PO HS RF: 0 quetiapine 25 mg tablet 25 mg PO BID RF: 0 carbamazepine 200 mg tablet 200 mg PO BID RF: 0 sodium chloride [Saline Mist] 0.65 % aerosol,spray 1 - 2 spray NA PRN PRN (Reason: Nasal Congestion) RF: 0 quetiapine 200 mg tablet 200 mg PO HS RF: 0 Discontinued oxymetazoline [Nasal [place] (oxymetazoline)] 0.05 % [place],Non-Aerosol 1 spray NA BID PRNQty: 0 RF: 0 bismuth subsalicylate [Kaopectate (bismuth subsalicy)] 262 mg/15 mL Suspension 15 ml PO PRN PRNQty: 0 RF: 0 clonazepam 1 mg tablet 1.5 mg PO HS RF: 0 Discharge Orders: Discharge Order (Routine); Ordered 01/18/21 Ordered By: Thomas Hyde Admission Data Admit Date/Time: 01/18/21 10:07 Attending Provider: Thomas Hyde Admit Provider: Akshat Barclay Primary Care Provider: Dayron Myers Other Providers: Akshat Barclay ; Akshat Rodriguez ; Mynor Zamora ; Lyndsey Chatterjee ; Dr Rolly ; Barbie Valdez ; Albert Crane ; Liban Jaramillo Coding Level of Care Code D/C DAY MANAGEMENT <30 MINS Diagnoses Depression F33.2 Active/Remission status: currently active Depression Type: major depressive disorder Major depression episode severity: severe Major depression recurrence: recurrent Psychotic features: without psychotic features Mass of right kidney N28.89 Esophageal reflux K21.9 Hypertension I10 DVT prophylaxis Z29.9
--- NOTE | 2021-02-15 07:53 | Coding Query ---
PATHOLOGY To promote full compliance with coding requirements relating to patient care, physician participation is requested in all cases of head lineman uncertainty. Please assist us with the question(s) below: Please review the Pathology report and please document any relevant diagnosis(es) below: Diagnosis(es): Renal cell carcinoma Thank you LU[facility] Fox [facility]
== END 2021-01-18 14:55 | DRG 657 ==
LOC: ED 10:42 → 3W 10:42 → SUATTDRO 17:31

== ENCOUNTER 2021-01-18 13:44 | Inpatient (IN) ==
[2021-01-18] MEDS ORDERED: ALUMINUM/MAGNESIUM SUSP 30 ML UDC PO PRN (15:25)
[2021-01-18] MEDS ORDERED: MAGNESIUM HYDROXIDE SUSP 30 ML UDC PO PRN (15:25)
[2021-01-18] MEDS ORDERED: SODIUM CHLORIDE 0.65% NA SOLN 45 ML (OCEAN) PRN ×2 (15:25→15:38)
[2021-01-18] MEDS ORDERED: BISMUTH SUBSALICYLATE LIQD 236 ML PO PRN (15:25)
[2021-01-18] MEDS ORDERED: ACETAMINOPHEN 325 MG TAB PO PRN (15:25)
[2021-01-18] MEDS ORDERED: oxyCODONE HCL IR 5 MG TAB (IMMEDIATE RELEASE) PO PRN (15:38)
[2021-01-18] MEDS: carBAMazepine 200 MG TABLET PO SCH (21:13)
[2021-01-18] MEDS: QUEtiapine FUMARATE 200 MG TAB PO SCH (21:13)
[2021-01-18] MEDS: clonazePAM 1 MG TAB PO SCH (21:13)
[2021-01-18] MEDS: MIRTAZAPINE TAB 15 MG TAB PO SCH (21:14)
[2021-01-18] MEDS: SENNA 8.6 MG TAB PO SCH (21:14)
[2021-01-18] MEDS: TAMSULOSIN HCL 0.4 MG CAP PO SCH (21:15)
[2021-01-18] MEDS ORDERED: TAMSULOSIN HCL 0.4 MG CAP PO SCH ×2 (22:00)
[2021-01-19] MEDS: LORATADINE 10 MG TAB PO SCH (08:11)
[2021-01-19] MEDS: FAMOTIDINE 20 MG TAB PO SCH (08:11)
[2021-01-19] MEDS: THIAMINE HCL 100 MG TAB PO SCH (08:11)
[2021-01-19] MEDS: QUEtiapine FUMARATE 25 MG TABLET PO SCH ×2 (08:11→11:57)
[2021-01-19] MEDS: amLODIPine BESYLATE 5 MG TAB PO SCH (08:11)
[2021-01-19] MEDS: carBAMazepine 200 MG TABLET PO SCH ×2 (08:11→20:18)
--- NOTE | 2021-01-19 16:21 | History & Physical ---
Date of Service January 19, 2021 Impression / Recommendations Impression This is a 55-year-old male with bipolar disorder well-known to from recent hospitalization who presents depressed with low mood and energy. Patient will benefit from inpatient hospitalization for purposes of safety, stabilization, medication management. We will continue to collaborate with outpatient providers to find the best treatment strategy for this patient. His outpatient doctor Dr. Simmons was contacted by telephone and agrees that augmentation with Wellbutrin may be helpful for his mood. (1) Bipolar depression: The patient was admitted to the [facility] ([facility] mental health unit) on every 15 minute checks (behavioral with suicide precautions for safety. The patient will participate in group, recreational, and milieu therapies and will be offered additional individual and family sessions as clinically appropriate. 01/19/2021we will continue the patient's outpatient regimen for now of Tegretol, Seroquel, mirtazapine, clonazepam and will add Wellbutrin to the regimen in effort to improve mood, energy, motivation. Psychiatric History Identifying Data ALEXANDRA BONILLA is a 55-year-old M who currently lives in [place] with his parents, has a history of bipolar disorder, and was admitted on 01/18/21 15:04 on a 201 voluntary commitment for worsening depression. Chief Complaint "I do not even know anymore". History of Present Illness Patient is a 55-year-old male with a well-known history of bipolar disorder who presents to the psychiatric unit following a stay on medical floors. Patient was last discharged from [facility] back in October following a suicidal gesture in which patient had taken Adderall and [place] with the intent of having a heart attack and dying. Patient was stabilized on Abilify and discharged to his brother's care. Patient had been compliant with outpatient treatment and his medications were adjusted by his outpatient provider. Patient then presented approximately a week ago with some medical complaints as well as severe depression. Upon medical evaluation patient was found to have a renal cell carcinoma which was successfully removed during operation. Following the operation patient's mood did seem to improve although quickly returned to a depressed state where it currently is at. Upon evaluation this afternoon, patient is very hesitant to speak in difficult to converse with. He offers a lot of one-word or simple phrase answers such as "I do not know" to the majority of questions. Patient also has severe hopelessness which he acknowledges although appears to be out of proportion to his issues and leads group underwriter to question further psychotic diathesis to his depression. Patient is in agreement for medication management as well as therapy services here on the inpatient unit and following his discharge. Patient acknowledges feeling suicidal but states he does not have the energy to "do anything like that." He does acknowledge anxious feelings as well as feelings of hopelessness. Patient also feels that he is lacking in motivation. He is denying any auditory or visual hallucinations at this time. Past Psychiatric History Current Psychiatric Diagnosis: Bipolar Disorder Allergies Allergy/AdvReac Type Severity Reaction Status Date / Time hydrocodone AdvReac Intermediate BECOMES Verified 01/10/21 14:23 MANIC naproxen AdvReac Mild RECTAL Verified 01/10/21 14:23 BLEEDING WITH EXTENDED USE Home Medications Medication Instructions Recorded Confirmed Type famotidine 20 mg tablet 20 mg PO DAILY #0 tab 10/08/20 01/18/21 Rx carbamazepine 200 mg tablet 200 mg PO BID 01/10/21 01/18/21 History mirtazapine 30 mg tablet 30 mg PO HS 01/10/21 01/18/21 History quetiapine 200 mg tablet 200 mg PO HS 01/10/21 01/18/21 History quetiapine 25 mg tablet 25 mg PO BID 01/10/21 01/18/21 History sodium chloride 0.65 % nasal spray 1 - 2 spray NA PRN PRN 01/10/21 01/18/21 History aerosol (Saline Mist) amlodipine 5 mg tablet (Norvasc) 5 mg PO QAM #1 tab 01/18/21 01/18/21 Rx clonazepam 1 mg tablet 1 mg PO HS #1 tab 01/18/21 01/18/21 Rx loratadine 10 mg tablet (Claritin) 10 mg PO DAILY 01/18/21 01/18/21 History oxycodone 5 mg tablet 5 mg PO Q4H PRN #1 tab 01/18/21 01/18/21 Rx sennosides 17.2 mg tablet (Senokot 17.2 mg PO HS 01/18/21 01/18/21 History Extra Strength) tamsulosin 0.4 mg capsule 0.4 mg PO HS #1 cap 01/18/21 01/18/21 Rx tamsulosin 0.4 mg capsule (Flomax) 0.4 mg PO HS 01/18/21 01/18/21 History thiamine HCl (vitamin B1) 100 mg 100 mg PO QAM #1 tab 01/18/21 01/18/21 Rx tablet (Vitamin B-1) Family History Family History of: Depression and Bipolar Family Mental Health History Comment: uncle was diagnosed with schizophrenia and mother may have had undiagnosed epsiodes of depression Alcohol History Hx of Alcohol Use Over the Past 12 Months: No AUDIT Total Score: 0 Smoking Use Have You Smoked or Used Tobacco Products in the Last 30 Days: No Smoking Status: Never smoker Substance History Hx of Prescription Med Misuse Over the Past 12 Months: No Hx of Over the Counter Med Misuse Over the Past 12 Months: No Hx of Inhalent Misuse Over the Past 12 Months: No Hx of Organic Substance Use Over the Past 12 Months: No Hx of Illegal Substances/Street Drug Use Over Past 12 Months: No Problems as a Result of Past Substance Use: None Identified Personal History Living Arrangements: Home Highest Grade Completed: Graduate School Highest Grade Completed Comment: [employer], ABD, never finished disertation Marital Status: Number Of Children: 1 Beliefs That Will Affect Care: None Legal Problems Comment: history of being bankrupt Hx Traumatic Life Events: No Patient History Medical History (Updated 01/19/21 @ 16:31 by Albert Crane MD) Cluster headache Confusion Medial meniscus tear Renal mass Surgical History H/O arthroscopic knee surgery History of rotator cuff surgery Family History Mother Lymphoma Father Prostate cancer Grandmother (Maternal) Hypertension Other Diabetes Social History Smoking Status: Never smoker Second Hand Exposure: No; Hx Alcohol Use: Yes Hx Substance Use: No Preferred Language: Maori Communication Ability: Effective Inpatient Coder Required: No Beliefs That Will Affect Care: None marital status: Current Living Situation: Parent Current Living Situation Comment: lives with father Feels Safe at Home: Yes Assistive Devices: Glasses Review of Systems Review of Systems: All systems reviewed & are unremarkable except as noted in HPI & below Physical Exam Psychiatric: Orientation: alert and oriented x 3 Apperance: appropriately groomed Eye Contact: + poor eye contact Motor Behavior: + psychomotor retardation Patient very slow to respond and soft voice Affect: + depressed affect, + flat affect, + constricted affect and mood congruent with affect Mood: + depressed mood and + dysphoric mood Thought Process: goal directed thought process and + thought blocking Thought Content: + cognitive distortions, + hopelessness, + worthlessness, + guilt and + self deprecation Suicidal Thoughts: denies suicidal thoughts Homicidal Thoughts: denies homicidal thoughts Hallucinations: no auditory hallucinations Cognition: + attention not intact Estimated Intelligence: consistent with education level Insight: + fair insight Judgement: + poor judgement Vital Signs (Past 24 Hours): Last Vital Signs Temp 36.6 C 01/19/21 06:32 Pulse 92 H 01/19/21 06:36 Resp 18 01/19/21 06:32 BP 130/94 01/19/21 06:36 Pulse Ox 98 01/18/21 15:08 Results & Data ([facility]) Current Inpatient Medications Current Inpatient Medications: Current Inpatient Medications Acetaminophen (Acetaminophen 325 Mg Tab) 650 mg PO Q4H PRN PRN Reason: Headache or Minor Fever Stop: 02/17/21 15:24 Al Hydrox/Mg Hydrox/Simethicone (Aluminum/Magnesium Susp 30 Ml Udc) 30 ml PO Q4H PRN PRN Reason: GI Upset Stop: 02/17/21 15:24 Amlodipine Besylate (Amlodipine Besylate 5 Mg Tab) 5 mg PO QAM [facility] Stop: 02/18/21 08:59 Last Admin: 01/19/21 08:11 Dose: 5 mg Documented by: Bismuth Subsalicylate (Bismuth Subsalicylate Liqd 236 Ml) 15 ml PO PRN PRN PRN Reason: Loose Stool Stop: 02/17/21 15:24 Carbamazepine (Carbamazepine 200 Mg Tablet) 200 mg PO BID [facility] Stop: 02/17/21 20:59 Last Admin: 01/19/21 08:11 Dose: 200 mg Documented by: Clonazepam (Clonazepam 1 Mg Tab) 1 mg PO HS JACLYN Stop: 02/17/21 21:59 Last Admin: 01/18/21 21:13 Dose: 1 mg Documented by: Famotidine (Famotidine 20 Mg Tab) 20 mg PO DAILY JACLYN Stop: 02/18/21 08:59 Last Admin: 01/19/21 08:11 Dose: 20 mg Documented by: Loratadine (Loratadine 10 Mg Tab) 10 mg PO DAILY [facility] Stop: 02/18/21 08:59 Last Admin: 01/19/21 08:11 Dose: 10 mg Documented by: Magnesium Hydroxide (Magnesium Hydroxide Susp 30 Ml Udc) 30 ml PO DAILY PRN PRN Reason: Constipation Stop: 02/17/21 15:24 Mirtazapine (Mirtazapine Tab 15 Mg Tab) [address] [facility] Stop: 02/17/21 21:59 Last Admin: 01/18/21 21:14 Dose: 30 mg Documented by: Oxycodone HCl (Oxycodone Hcl Ir 5 Mg Tab (Immediate Release)) 5 mg PO Q4H PRN PRN Reason: pain Stop: 02/01/21 15:37 Quetiapine Fumarate (Quetiapine Fumarate 25 Mg Tablet) 25 mg PO BID@0900,1200 [facility] Stop: 02/18/21 08:59 Last Admin: 01/19/21 11:57 Dose: 25 mg Documented by: Quetiapine Fumarate (Quetiapine Fumarate 200 Mg Tab) [address] [facility] Stop: 02/17/21 21:59 Last Admin: 01/18/21 21:13 Dose: 200 mg Documented by: Sennosides (Senna 8.6 Mg Tab) 17.[address] [facility] Stop: 02/17/21 21:59 Last Admin: 01/18/21 21:14 Dose: 17.2 mg Documented by: Sodium Chloride (Sodium Chloride 0.65% Na Soln 45 Ml ([place])) 1 - 2 sprays NA PRN PRN PRN Reason: Nasal Dryness/Congestion Stop: 02/17/21 15:24 Sodium Chloride (Sodium Chloride 0.65% Na Soln 45 Ml ([place])) 1 - 2 sprays NA PRN PRN PRN Reason: Nasal Congestion Stop: 02/17/21 15:37 Tamsulosin HCl (Tamsulosin Hcl 0.4 Mg Cap) 0.[address] [facility] Stop: 02/17/21 21:59 Last Admin: 01/18/21 21:15 Dose: 0.4 mg Documented by: Thiamine HCl (Thiamine Hcl 100 Mg Tab) [facility] Stop: 02/18/21 08:59 Last Admin: 01/19/21 08:11 Dose: 100 mg Documented by:
[2021-01-19] MEDS: SENNA 8.6 MG TAB PO SCH (20:18)
[2021-01-19] MEDS: MIRTAZAPINE TAB 15 MG TAB PO SCH (20:18)
[2021-01-19] MEDS: QUEtiapine FUMARATE 200 MG TAB PO SCH (20:19)
[2021-01-19] MEDS: TAMSULOSIN HCL 0.4 MG CAP PO SCH (20:19)
[2021-01-19] MEDS: clonazePAM 1 MG TAB PO SCH (20:23)
[2021-01-20] MEDS: amLODIPine BESYLATE 5 MG TAB PO SCH (08:35)
[2021-01-20] MEDS: FAMOTIDINE 20 MG TAB PO SCH (08:36)
[2021-01-20] MEDS: QUEtiapine FUMARATE 25 MG TABLET PO SCH ×2 (08:36→12:48)
[2021-01-20] MEDS: THIAMINE HCL 100 MG TAB PO SCH (08:36)
[2021-01-20] MEDS: buPROPion HCl 75 MG TABLET PO SCH ×2 (08:36→17:10)
[2021-01-20] MEDS: LORATADINE 10 MG TAB PO SCH (08:36)
[2021-01-20] MEDS: carBAMazepine 200 MG TABLET PO SCH ×2 (08:36→21:03)
--- NOTE | 2021-01-20 10:39 | Psychiatric Progress Note ---
Date of Service January 20, 2021 Impression / Recommendations Impression This is a 55-year-old male with bipolar disorder well-known to from recent hospitalization who presents depressed with low mood and energy. Patient will benefit from inpatient hospitalization for purposes of safety, stabilization, medication management. We will continue to collaborate with outpatient providers to find the best treatment strategy for this patient. His outpatient doctor Dr. Simmons was contacted by telephone and agrees that augmentation with Wellbutrin may be helpful for his mood. (1) Bipolar depression: The patient was admitted to the [facility] ([facility] mental health unit) on every 15 minute checks (behavioral with suicide precautions for safety. The patient will participate in group, recreational, and milieu therapies and will be offered additional individual and family sessions as clinically appropriate. 01/20/2021Wellbutrin 75 mg twice daily added to regimen, patient remains very depressed 01/19/2021we will continue the patient's outpatient regimen for now of Tegretol, Seroquel, mirtazapine, clonazepam and will add Wellbutrin to the regimen in effort to improve mood, energy, motivation. Interval History Chief Complaint "I do not know". Review of Systems Sleep Information Total Hours of Sleep: 6.5 Sleep Comments: pt on q-15 minute checks Meal Information Percent Meal Consumed - Breakfast: 100 Percent Meal Consumed - Lunch: 100 Percent Meal Consumed - Dinner: 100 Subjective Subjective Patient seen, chart reviewed and case discussed with treatment team, nursing and social work. Patient is compliant with medications. Seen eating meals and sleeping with aid of medication. No side effects reported or observed. Patient is still appearing very depressed. Mood is flat with minimal word spoken. Patient has a difficult time making eye contact and responding to questions. Overall still having difficulty with energy, motivation, and mood. Thankful for changes in medication regimen to target the symptoms and collaboration with outpatient provider. I spent 30 minutes with the patient, 50% of which was dedicated to counselling and coordination of care. Physical Exam Psychiatric Orientation: alert and oriented x 3 Apperance: appropriately groomed Eye Contact: + poor eye contact Motor Behavior: + psychomotor retardation Affect: + depressed affect, + flat affect, + constricted affect and mood congruent with affect Mood: + depressed mood and + dysphoric mood Thought Process: goal directed thought process and + thought blocking Thought Content: + cognitive distortions, + hopelessness, + worthlessness, + guilt and + self deprecation Suicidal Thoughts: denies suicidal thoughts Homicidal Thoughts: denies homicidal thoughts Hallucinations: no auditory hallucinations Cognition: + attention not intact Estimated Intelligence: consistent with education level Insight: + fair insight Judgement: + poor judgement Vital Signs (Past 24 Hours) Last Vital Signs Temp 36.6 C 01/20/21 06:39 Pulse 88 01/20/21 06:40 Resp 18 01/20/21 06:39 BP 137/92 01/20/21 06:40 Pulse Ox 98 01/18/21 15:08 Results & Data ([facility]) Current Inpatient Medications Current Inpatient Medications: Current Inpatient Medications Acetaminophen (Acetaminophen 325 Mg Tab) 650 mg PO Q4H PRN PRN Reason: Headache or Minor Fever Stop: 02/17/21 15:24 Al Hydrox/Mg Hydrox/Simethicone (Aluminum/Magnesium Susp 30 Ml Udc) 30 ml PO Q4H PRN PRN Reason: GI Upset Stop: 02/17/21 15:24 Amlodipine Besylate (Amlodipine Besylate 5 Mg Tab) 5 mg PO QAM [facility] Stop: 02/18/21 08:59 Last Admin: 01/20/21 08:35 Dose: 5 mg Documented by: Bismuth Subsalicylate (Bismuth Subsalicylate Liqd 236 Ml) 15 ml PO PRN PRN PRN Reason: Loose Stool Stop: 02/17/21 15:24 Bupropion HCl (Bupropion Hcl 75 Mg Tablet) 75 mg PO BID17 [facility] Stop: 02/19/21 08:59 Last Admin: 01/20/21 08:36 Dose: 75 mg Documented by: Carbamazepine (Carbamazepine 200 Mg Tablet) 200 mg PO BID [facility] Stop: 02/17/21 20:59 Last Admin: 01/20/21 08:36 Dose: 200 mg Documented by: Clonazepam (Clonazepam 1 Mg Tab) 1 mg PO HS [facility] Stop: 02/17/21 21:59 Last Admin: 01/19/21 20:23 Dose: 1 mg Documented by: Famotidine (Famotidine 20 Mg Tab) 20 mg PO DAILY [facility] Stop: 02/18/21 08:59 Last Admin: 01/20/21 08:36 Dose: 20 mg Documented by: Loratadine (Loratadine 10 Mg Tab) 10 mg PO DAILY [facility] Stop: 02/18/21 08:59 Last Admin: 01/20/21 08:36 Dose: 10 mg Documented by: Magnesium Hydroxide (Magnesium Hydroxide Susp 30 Ml Udc) 30 ml PO DAILY PRN PRN Reason: Constipation Stop: 02/17/21 15:24 Mirtazapine (Mirtazapine Tab 15 Mg Tab) 30 mg PO [facility] Stop: 02/17/21 21:59 Last Admin: 01/19/21 20:18 Dose: 30 mg Documented by: Oxycodone HCl (Oxycodone Hcl Ir 5 Mg Tab (Immediate Release)) 5 mg PO Q4H PRN PRN Reason: pain Stop: 02/01/21 15:37 Quetiapine Fumarate (Quetiapine Fumarate 25 Mg Tablet) 25 mg PO BID@0900,1200 [facility] Stop: 02/18/21 08:59 Last Admin: 01/20/21 08:36 Dose: 25 mg Documented by: Quetiapine Fumarate (Quetiapine Fumarate 200 Mg Tab) 200 mg PO [facility] Stop: 02/17/21 21:59 Last Admin: 01/19/21 20:19 Dose: 200 mg Documented by: Sennosides (Senna 8.6 Mg Tab) 17.2 mg PO [facility] Stop: 02/17/21 21:59 Last Admin: 01/19/21 20:18 Dose: 17.2 mg Documented by: Sodium Chloride (Sodium Chloride 0.65% Na Soln 45 Ml ([place])) 1 - 2 sprays NA PRN PRN PRN Reason: Nasal Dryness/Congestion Stop: 02/17/21 15:24 Sodium Chloride (Sodium Chloride 0.65% Na Soln 45 Ml ([place])) 1 - 2 sprays NA P RN PRN PRN Reason: Nasal Congestion Stop: 02/17/21 15:37 Tamsulosin HCl (Tamsulosin Hcl 0.4 Mg Cap) 0.4 mg PO [facility] Stop: 02/17/21 21:59 Last Admin: 01/19/21 20:19 Dose: 0.4 mg Documented by: Thiamine HCl (Th[facility]amine Hcl 100 Mg Tab) [facility] [place]: 02/18/21 08:59 Last Admin: 01/20/21 08:36 Dose: 100 mg Documented by: Mental Health & Subst Abuse Tx Psychiatrist Name of Psychiatrist: Pratima Gautam Psychiatrist's Phone Number: [phone] Post Discharge Appointments Primary Care Physician Name Of Family Doctor: Dr. Myers
[2021-01-20] MEDS: MIRTAZAPINE TAB 15 MG TAB PO SCH (21:04)
[2021-01-20] MEDS: clonazePAM 1 MG TAB PO SCH (21:04)
[2021-01-20] MEDS: TAMSULOSIN HCL 0.4 MG CAP PO SCH (21:05)
[2021-01-20] MEDS: SENNA 8.6 MG TAB PO SCH (21:05)
[2021-01-20] MEDS: QUEtiapine FUMARATE 200 MG TAB PO SCH (21:05)
[2021-01-20] MEDS ORDERED: LORazepam 1 MG TAB PO STA ×2 (22:18→22:38)
[2021-01-21] MEDS: amLODIPine BESYLATE 5 MG TAB PO SCH (07:55)
[2021-01-21] MEDS: carBAMazepine 200 MG TABLET PO SCH ×2 (07:56→21:20)
[2021-01-21] MEDS: QUEtiapine FUMARATE 25 MG TABLET PO SCH (07:56)
[2021-01-21] MEDS: FAMOTIDINE 20 MG TAB PO SCH (07:56)
[2021-01-21] MEDS: LORATADINE 10 MG TAB PO SCH (07:56)
[2021-01-21] MEDS: buPROPion HCl 75 MG TABLET PO SCH ×2 (07:56→17:07)
[2021-01-21] MEDS: THIAMINE HCL 100 MG TAB PO SCH (07:57)
[2021-01-21] MEDS ORDERED: LORazepam 1 MG TAB PO STA (10:24)
--- NOTE | 2021-01-21 14:58 | Psychiatric Progress Note ---
Date of Service January 21, 2021 Impression / Recommendations Impression This is a 55-year-old male with bipolar disorder well-known to from recent hospitalization who presents depressed with low mood and energy. Patient will benefit from inpatient hospitalization for purposes of safety, stabilization, medication management. Patient appears to be responding well to benzodiazepine therapy. It is possible that patient has a catatonic-like process occurring although is seen walking and talking minimally. Nevertheless he is improving with benzodiazepines and we will continue until we see patient's mood is significantly lifted. (1) Bipolar depression: The patient was admitted to the [facility] ([facility]) on every 15 minute checks (behavioral with suicide precautions for safety. The patient will participate in group, recreational, and milieu therapies and will be offered additional individual and family sessions as clinically appropriate. 01/21/2021we will hold a.m. doses of Seroquel as patient remains flat. We will continue with Wellbutrin therapy and change to XL formulation starting tomorrow. We will change clonazepam administration to 3 times daily as patient seems to be improving with benzodiazepines. 01/20/2021Wellbutrin 75 mg twice daily added to regimen, patient remains very depressed 01/19/2021we will continue the patient's outpatient regimen for now of Tegretol, Seroquel, mirtazapine, clonazepam and will add Wellbutrin to the regimen in effort to improve mood, energy, motivation. Interval History Chief Complaint "I feel anxious and clamy". Review of Systems Sleep Information Total Hours of Sleep: 6.75 Sleep Comments: pt on q-15 minute checks Meal Information Percent Meal Consumed - Breakfast: 100 Percent Meal Consumed - Lunch: 100 Percent Meal Consumed - Dinner: 100 Subjective Subjective Patient was seen & assessed and interval progress reviewed with treatment team nursing and social work Patient remains with flat affect and reports significant anxiety. He is seen eating and sleeping but is isolative most of the time. Last night patient was complaining of some bothersome thoughts and was administered a milligram of Ativan to good effect. He reports having slept well on the medication. There are also reports that patient had been formally responded well to benzodiazepines. Today we gave patient a one-time dose of 2 mg of Ativan following which he was more social and able to even make a joke. Patient denies side effects of the additional Wellbutrin medication. His brother was also called and updated as to the potential plans for future as well as the course of treatment presently. I spent 30 minutes with the patient, 50% of which was dedicated to counselling and coordination of care. Physical Exam Psychiatric Orientation: alert and oriented x 3 Apperance: appropriately groomed Eye Contact: + poor eye contact Motor Behavior: + psychomotor retardation Affect: + depressed affect, + flat affect, + constricted affect and mood congruent with affect Mood: + depressed mood and + dysphoric mood Thought Process: goal directed thought process and + thought blocking Thought Content: + cognitive distortions, + hopelessness, + worthlessness, + gu ilt and + self deprecation Suicidal Thoughts: denies suicidal thoughts Homicidal Thoughts: denies homicidal thoughts Hallucinations: no auditory hallucinations Cognition: + attention not intact Estimated Intelligence: consistent with education level Insight: + fair insight Judgement: + poor judgement Vital Signs (Past 24 Hours) Last Vital Signs Temp 36.8 C 01/21/21 06:20 Pulse 93 H 01/21/21 13:51 Resp 18 01/21/21 06:20 BP 142/91 H 01/21/21 13:51 Pulse Ox 98 01/18/21 15:08 Results & Data ([facility]) Current Inpatient Medications Current Inpatient Medications: Current Inpatient Medications Acetaminophen (Acetaminophen 325 Mg Tab) 650 mg PO Q4H PRN PRN Reason: Headache or Minor Fever Stop: 02/17/21 15:24 Al Hydrox/Mg Hydrox/Simethicone (Aluminum/Magnesium Susp 30 Ml Udc) 30 ml PO Q4H PRN PRN Reason: GI Upset Stop: 02/17/21 15:24 Amlodipine Besylate (Amlodipine Besylate 5 Mg Tab) 5 mg PO QAM [facility] Stop: 02/18/21 08:59 Last Admin: 01/21/21 07:55 Dose: 5 mg Documented by: Bismuth Subsalicylate (Bismuth Subsalicylate Liqd 236 Ml) 15 ml PO PRN PRN PRN Reason: Loose Stool Stop: 02/17/21 15:24 Bupropion HCl (Bupropion Hcl 75 Mg Tablet) 75 mg PO BID17 [facility] Stop: 01/21/21 18:59 Last Admin: 01/21/21 07:56 Dose: 75 mg Documented by: Bupropion HCl (Bupropion Xl 150 Mg Tabcr) 150 mg PO QAM [facility] Stop: 02/21/21 08:59 Carbamazepine (Carbamazepine 200 Mg Tablet) 200 mg PO BID [facility] Stop: 02/17/21 20:59 Last Admin: 01/21/21 07:56 Dose: 200 mg Documented by: Clonazepam (Clonazepam 1 Mg Tab) 1 mg PO TID [facility] Stop: 02/20/21 20:59 Famotidine (Famotidine 20 Mg Tab) 20 mg PO DAILY [facility] Stop: 02/18/21 08:59 Last Admin: 01/21/21 07:56 Dose: 20 mg Documented by: Loratadine (Loratadine 10 Mg Tab) 10 mg PO DAILY [facility] Stop: 02/18/21 08:59 Last Admin: 01/21/21 07:56 Dose: 10 mg Documented by: Magnesium Hydroxide (Magnesium Hydroxide Susp 30 Ml Udc) 30 ml PO DAILY PRN PRN Reason: Constipation Stop: 02/17/21 15:24 Mirtazapine (Mirtazapine Tab 15 Mg Tab) 30 mg PO [facility] Stop: 02/17/21 21:59 Last Admin: 01/20/21 21:04 Dose: 30 mg Documented by: Oxycodone HCl (Oxycodone Hcl Ir 5 Mg Tab (Immediate Release)) 5 mg PO Q4H PRN PRN Reason: pain Stop: 02/01/21 15:37 Quetiapine Fumarate (Quetiapine Fumarate 200 Mg Tab) 200 mg PO [facility] Stop: 02/17/21 21:59 Last Admin: 01/20/21 21:05 Dose: 200 mg Documented by: Sennosides (Senna 8.6 Mg Tab) 17.2 mg PO [facility] Stop: 02/17/21 21:59 Last Admin: 01/20/21 21:05 Dose: 17.2 mg Documented by: Sodium Chloride (Sodium Chloride 0.65% Na Soln 45 Ml ([place])) 1 - 2 sprays NA PRN PRN PRN Reason: Nasal Dryness/Congestion Stop: 02/17/21 15:24 Sodium Chloride (Sodium Chloride 0.65% Na Soln 45 Ml ([place])) 1 - 2 sprays NA PRN PRN PRN Reason: Nasal Congestion Stop: 02/17/21 15:37 Tamsulosin HCl (Tamsulosin Hcl 0.4 Mg Cap) 0.4 mg PO [facility] Stop: 02/17/21 21:59 Last Admin: 01/20/21 21:05 Dose: 0.4 mg Documented by: Thiamine HCl (Thiamine Hcl 100 Mg Tab) 100 mg PO QAM [facility] Stop: 02/18/21 08:59 Last Admin: 01/21/21 07:57 Dose: 100 mg Documented by: Mental Health & Subst Abuse Tx Psychiatrist Name of Psychiatrist: Pratima Gautam Psychiatrist's Phone Number: [phone] Post Discharge Appointments Primary Care Physician Name Of Family Doctor: Dr. Myers
[2021-01-21] MEDS: MIRTAZAPINE TAB 15 MG TAB PO SCH (21:19)
[2021-01-21] MEDS: SENNA 8.6 MG TAB PO SCH (21:19)
[2021-01-21] MEDS: TAMSULOSIN HCL 0.4 MG CAP PO SCH (21:19)
[2021-01-21] MEDS: clonazePAM 1 MG TAB PO SCH (21:20)
[2021-01-21] MEDS: QUEtiapine FUMARATE 200 MG TAB PO SCH (21:20)
[2021-01-22] MEDS: buPROPion XL 150 MG TABCR PO SCH (09:06)
[2021-01-22] MEDS: FAMOTIDINE 20 MG TAB PO SCH (09:06)
[2021-01-22] MEDS: amLODIPine BESYLATE 5 MG TAB PO SCH (09:06)
[2021-01-22] MEDS: LORATADINE 10 MG TAB PO SCH (09:06)
[2021-01-22] MEDS: THIAMINE HCL 100 MG TAB PO SCH (09:06)
[2021-01-22] MEDS: carBAMazepine 200 MG TABLET PO SCH ×2 (09:06→20:29)
[2021-01-22] MEDS: clonazePAM 1 MG TAB PO SCH ×3 (09:07→20:28)
--- NOTE | 2021-01-22 14:53 | Psychiatric Progress Note ---
Date of Service January 22, 2021 Impression / Recommendations Impression This is a 55-year-old male with bipolar disorder well-known to from recent hospitalization who presents depressed with low mood and energy. Patient will benefit from inpatient hospitalization for purposes of safety, stabilization, medication management. Patient appears to be responding well to benzodiazepine therapy. It is possible that patient has a catatonic-like process occurring although is seen walking and talking minimally. Nevertheless he is improving with benzodiazepines and we will continue until we see patient's mood is significantly lifted. (1) Bipolar depression: The patient was admitted to the [facility] ([facility] mental health unit) on every 15 minute checks (behavioral with suicide precautions for safety. The patient will participate in group, recreational, and milieu therapies and will be offered additional individual and family sessions as clinically appropriate. 01/22/2021atient appears to have no side effects to Wellbutrin XL. We will continue this dosage for now. Appears to be responding well to 3 times daily clonazepam administration as he is more willing to engage. Patient making very slow progress. 01/21/2021we will hold a.m. doses of Seroquel as patient remains flat. We will continue with Wellbutrin therapy and change to XL formulation starting tomorrow. We will change clonazepam administration to 3 times daily as patient seems to be improving with benzodiazepines. 01/20/2021Wellbutrin 75 mg twice daily added to regimen, patient remains very depressed 01/19/2021we will continue the patient's outpatient regimen for now of Tegretol, Seroquel, mirtazapine, clonazepam and will add Wellbutrin to the regimen in effort to improve mood, energy, motivation. Interval History Chief Complaint "Good morning". Review of Systems Sleep Information Total Hours of Sleep: 7.75 Sleep Comments: pt on q-15 minute checks Meal Information Percent Meal Consumed - Breakfast: 100 Percent Meal Consumed - Lunch: 90 Percent Meal Consumed - Dinner: 100 Subjective Subjective Patient seen, chart reviewed and case discussed with treatment team, nursing and social work. Patient reports a good night of sleep and good appetite. No side effects reported or observed. Regarding mood, patient remains quite flat and very depressed. When asked, patient reports anxiety is more prevalent and depression. He seems to be responding well to benzodiazepine administration. As he is noted to be more talkative and interactive following clonazepam dosing. I spent 30 minutes with the patient, 50% of which was dedicated to counselling and coordination of care. Physical Exam Psychiatric Orientation: alert and oriented x 3 Apperance: appropriately groomed Eye Contact: + poor eye contact Motor Behavior: + psychomotor retardation Affect: + depressed affect, + flat affect, + constricted affect and mood congruent with affect Mood: + depressed mood and + dysphoric mood Thought Process: goal directed thought process and + thought blocking Thought Content: + cognitive distortions, + hopelessness, + worthlessness, + guilt and + self deprecation Suicidal Thoughts: denies suicidal thoughts Homicidal Thoughts: denies homicidal thoughts Hallucinations: no auditory hallucinations Cognition: + attention not intact Estimated Intelligence: consistent with education level Insight: + fair insight Judgement: + poor judgement Vital Signs (Past 24 Hours) Last Vital Signs Temp 36.6 C 01/22/21 06:34 Pulse 76 01/22/21 06:36 Resp 16 01/22/21 06:34 BP 131/90 01/22/21 06:36 Pulse Ox 98 01/18/21 15:08 Results & Data ([facility]) Current Inpatient Medications Current Inpatient Medications: Current Inpatient Medications Acetaminophen (Acetaminophen 325 Mg Tab) 650 mg PO Q4H PRN PRN Reason: Headache or Minor Fever Stop: 02/17/21 15:24 Al Hydrox/Mg Hydrox/Simethicone (Aluminum/Magnesium Susp 30 Ml Udc) 30 ml PO Q4H PRN PRN Reason: GI Upset Stop: 02/17/21 15:24 Amlodipine Besylate (Amlodipine Besylate 5 Mg Tab) 5 mg PO QAM [facility] Stop: 02/18/21 08:59 Last Admin: 01/22/21 09:06 Dose: 5 mg Documented by: Bismuth Subsalicylate (Bismuth Subsalicylate Liqd 236 Ml) 15 ml PO PRN PRN PRN Reason: Loose Stool Stop: 02/17/21 15:24 Bupropion HCl (Bupropion Xl 150 Mg Tabcr) 150 mg PO QAM [facility] Stop: 02/21/21 08:59 Last Admin: 01/22/21 09:06 Dose: 150 mg Documented by: Carbamazepine (Carbamazepine 200 Mg Tablet) 200 mg PO BID [facility] Stop: 02/17/21 20:59 Last Admin: 01/22/21 09:06 Dose: 200 mg Documented by: Clonazepam (Clonazepam 1 Mg Tab) 1 mg PO TID [facility] Stop: 02/20/21 20:59 Last Admin: 01/22/21 13:56 Dose: 1 mg Documented by: Famotidine (Famotidine 20 Mg Tab) 20 mg PO DAILY [facility] Stop: 02/18/21 08:59 Last Admin: 01/22/21 09:06 Dose: 20 mg Documented by: Loratadine (Loratadine 10 Mg Tab) 10 mg PO DAILY [facility] Stop: 02/18/21 08:59 Last Admin: 01/22/21 09:06 Dose: 10 mg Documented by: Magnesium Hydroxide (Magnesium Hydroxide Susp 30 Ml Udc) 30 ml PO DAILY PRN PRN Reason: Constipation Stop: 02/17/21 15:24 Mirtazapine (Mirtazapine Tab 15 Mg Tab) 30 mg PO [facility] Stop: 02/17/21 21:59 Last Admin: 01/21/21 21:19 Dose: 30 mg Documented by: Oxycodone HCl (Oxycodone Hcl Ir 5 Mg Tab (Immediate Release)) 5 mg PO Q4H PRN PRN Reason: pain Stop: 02/01/21 15:37 Quetiapine Fumarate (Quetiapine Fumarate 200 Mg Tab) 200 mg PO [facility] Stop: 02/17/21 21:59 Last Admin: 01/21/21 21:20 Dose: 200 mg Documented by: Sennosides (Senna 8.6 Mg Tab) 17.2 mg PO HS [facility] Stop: 02/17/21 21:59 Last Admin: 01/21/21 21:19 Dose: 17.2 mg Documented by: Sodium Chloride (Sodium Chloride 0.65% Na Soln 45 Ml ([place])) 1 - 2 sprays NA PRN PRN PRN Reason: Nasal Dryness/Congestion Stop: 02/17/21 15:24 Sodium Chloride (Sodium Chloride 0.65% Na Soln 45 Ml ([place])) 1 - 2 sprays NA PRN PRN PRN Reason: Nasal Congestion Stop: 02/17/21 15:37 Tamsulosin HCl (Tamsulosin Hcl 0.4 Mg Cap) 0.4 mg PO [facility] Stop: 02/17/21 21:59 Last Admin: 01/21/21 21:19 Dose: 0.4 mg Documented by: Thiamine HCl (Thiamine Hcl 100 Mg Tab) 100 mg PO QAM [facility] Stop: 02/18/21 08:59 Last Admin: 01/22/21 09:06 Dose: 100 mg Documented by: Mental Health & Subst Abuse Tx Psychiatrist Name of Psychiatrist: Pratima Gautam Psychiatrist's Phone Number: [phone] Post Discharge Appointments Primary Care Physician Name Of Family Doctor: Dr. Myers
[2021-01-22] MEDS: MIRTAZAPINE TAB 15 MG TAB PO SCH (20:28)
[2021-01-22] MEDS: SENNA 8.6 MG TAB PO SCH (20:28)
[2021-01-22] MEDS: TAMSULOSIN HCL 0.4 MG CAP PO SCH (20:28)
[2021-01-22] MEDS: QUEtiapine FUMARATE 200 MG TAB PO SCH (20:29)
[2021-01-23] MEDS: buPROPion XL 150 MG TABCR PO SCH (08:07)
[2021-01-23] MEDS: amLODIPine BESYLATE 5 MG TAB PO SCH (08:07)
[2021-01-23] MEDS: carBAMazepine 200 MG TABLET PO SCH ×2 (08:08→21:37)
[2021-01-23] MEDS: THIAMINE HCL 100 MG TAB PO SCH (08:08)
[2021-01-23] MEDS: clonazePAM 1 MG TAB PO SCH ×3 (08:08→21:35)
[2021-01-23] MEDS: LORATADINE 10 MG TAB PO SCH (08:08)
[2021-01-23] MEDS: FAMOTIDINE 20 MG TAB PO SCH (08:08)
--- NOTE | 2021-01-23 12:27 | Psychiatric Progress Note ---
Date of Service January 23, 2021 Impression / Recommendations Impression This is a 55-year-old male with bipolar disorder well-known to from recent hospitalization who presents depressed with low mood and energy. Patient will benefit from inpatient hospitalization for purposes of safety, stabilization, medication management. Patient appears to be responding well to benzodiazepine therapy. It is possible that patient has a catatonic-like process occurring although is seen walking and talking minimally. Nevertheless he is improving with benzodiazepines and we will continue until we see patient's mood is significantly lifted. (1) Bipolar depression: The patient was admitted to the [facility] ([facility] mental health unit) on every 15 minute checks (behavioral with suicide precautions for safety. The patient will participate in group, recreational, and milieu therapies and will be offered additional individual and family sessions as clinically appropriate. 01/23/2021we will continue the current regimen for now, patient making incremental progress 01/22/2021atient appears to have no side effects to Wellbutrin XL. We will continue this dosage for now. Appears to be responding well to 3 times daily clonazepam administration as he is more willing to engage. Patient making very slow progress. 01/21/2021we will hold a.m. doses of Seroquel as patient remains flat. We will continue with Wellbutrin therapy and change to XL formulation starting tomorrow. We will change clonazepam administration to 3 times daily as patient seems to be improving with benzodiazepines. 01/20/2021Wellbutrin 75 mg twice daily added to regimen, patient remains very depressed 01/19/2021we will continue the patient's outpatient regimen for now of Tegretol, Seroquel, mirtazapine, clonazepam and will add Wellbutrin to the regim en in effort to improve mood, energy, motivation. Interval History Chief Complaint "I am okay". Review of Systems Sleep Information Total Hours of Sleep: 7.5 Sleep Comments: pt on q-15 minute checks Meal Information Percent Meal Consumed - Breakfast: 100 Percent Meal Consumed - Lunch: 90 Percent Meal Consumed - Dinner: 100 Subjective Subjective Patient seen, chart reviewed and case discussed with treatment team, nursing and social work. Patient reports a good night of sleep and good appetite. No side effects reported or observed. Regarding mood, patient is somewhat better although still isolative, difficult to engage, flat affect and appears depressed and anxious. I spent 30 minutes with the patient, 50% of which was dedicated to counselling and coordination of care. Physical Exam Psychiatric Orientation: alert and oriented x 3 Apperance: appropriately groomed Eye Contact: + poor eye contact Motor Behavior: + psychomotor retardation Affect: + depressed affect, + flat affect, + constricted affect and mood congruent with affect Mood: + depressed mood and + dysphoric mood Thought Process: goal directed thought process and + thought blocking Thought Content: + cognitive distortions, + hopelessness, + worthlessness, + guilt and + self deprecation Suicidal Thoughts: denies suicidal thoughts Homicidal Thoughts: denies homicidal thoughts Hallucinations: no auditory hallucinations Cognition: + attention not intact Estimated Intelligence: consistent with education level Insight: + fair insight Judgement: + poor judgement Vital Signs (Past 24 Hours) Last Vital Signs Temp 36.7 C 01/23/21 06:00 Pulse 96 H 01/23/21 06:26 Resp 16 01/23/21 06:00 BP 139/82 01/23/21 06:26 Pulse Ox 98 01/18/21 15:08 Results & Data ([facility]) Current Inpatient Medications Current Inpatient Medications: Current Inpatient Medications Acetaminophen (Acetaminophen 325 Mg Tab) 650 mg PO Q4H PRN PRN Reason: Headache or Minor Fever Stop: 02/17/21 15:24 Al Hydrox/Mg Hydrox/Simethicone (Aluminum/Magnesium Susp 30 Ml Udc) 30 ml PO Q4H PRN PRN Reason: GI Upset Stop: 02/17/21 15:24 Amlodipine Besylate (Amlodipine Besylate 5 Mg Tab) 5 mg PO QAM [facility] Stop: 02/18/21 08:59 Last Admin: 01/23/21 08:07 Dose: 5 mg Documented by: Bismuth Subsalicylate (Bismuth Subsalicylate Liqd 236 Ml) 15 ml PO PRN PRN PRN Reason: Loose Stool Stop: 02/17/21 15:24 Bupropion HCl (Bupropion Xl 150 Mg Tabcr) 150 mg PO QAM [facility] Stop: 02/21/21 08:59 Last Admin: 01/23/21 08:07 Dose: 150 mg Documented by: Carbamazepine (Carbamazepine 200 Mg Tablet) 200 mg PO BID [facility] Stop: 02/17/21 20:59 Last Admin: 01/23/21 08:08 Dose: 200 mg Documented by: Clonazepam (Clonazepam 1 Mg Tab) 1 mg PO TID [facility] Stop: 02/20/21 20:59 Last Admin: 01/23/21 08:08 Dose: 1 mg Documented by: Famotidine (Famotidine 20 Mg Tab) 20 mg PO DAILY [facility] Stop: 02/18/21 08:59 Last Admin: 01/23/21 08:08 Dose: 20 mg Documented by: Loratadine (Loratadine 10 Mg Tab) 10 mg PO DAILY [facility] Stop: 02/18/21 08:59 Last Admin: 01/23/21 08:08 Dose: 10 mg Documented by: Magnesium Hydroxide (Magnesium Hydroxide Susp 30 Ml Udc) 30 ml PO DAILY PRN PRN Reason: Constipation Stop: 02/17/21 15:24 Mirtazapine (Mirtazapine Tab 15 Mg Tab) 30 mg PO [facility] Stop: 02/17/21 21:59 Last Admin: 01/22/21 20:28 Dose: 30 mg Documented by: Oxycodone HCl (Oxycodone Hcl Ir 5 Mg Tab (Immediate Release)) 5 mg PO Q4H PRN PRN Reason: pain Stop: 02/01/21 15:37 Quetiapine Fumarate (Quetiapine Fumarate 200 Mg Tab) 200 mg PO [facility] Stop: 02/17/21 21:59 Last Admin: 01/22/21 20:29 Dose: 200 mg Documented by: Sennosides (Senna 8.6 Mg Tab) 17.2 mg PO [facility] Stop: 02/17/21 21:59 Last Admin: 01/22/21 20:28 Dose: 17.2 mg Documented by: Sodium Chloride (Sodium Chloride 0.65% Na Soln 45 Ml ([place])) 1 - 2 sprays NA PRN PRN PRN Reason: Nasal Dryness/Congestion Stop: 02/17/21 15:24 Sodium Chloride (Sodium Chloride 0.65% Na Soln 45 Ml ([place])) 1 - 2 sprays NA PRN PRN PRN Reason: Nasal Congestion Stop: 02/17/21 15:37 Tamsulosin HCl (Tamsulosin Hcl 0.4 Mg Cap) 0.4 mg PO [facility] Stop: 02/17/21 21:59 Last Admin: 01/22/21 20:28 Dose: 0.4 mg Documented by: Thiamine HCl (Thiamine Hcl 100 Mg Tab) 100 mg PO [facility] Stop: 02/18/21 08:59 Last Admin: 01/23/21 08:08 Dose: 100 mg Documented by: Mental Health & Subst Abuse Tx Psychiatrist Name of Psychiatrist: Pratima Gautam Psychiatrist's Phone Number: [phone] Post Discharge Appointments Primary Care Physician Name Of Family Doctor: Dr. Myers
[2021-01-23] MEDS: SENNA 8.6 MG TAB PO SCH (21:35)
[2021-01-23] MEDS: MIRTAZAPINE TAB 15 MG TAB PO SCH (21:36)
[2021-01-23] MEDS: QUEtiapine FUMARATE 200 MG TAB PO SCH (21:37)
[2021-01-23] MEDS: TAMSULOSIN HCL 0.4 MG CAP PO SCH (21:38)
[2021-01-24] MEDS: clonazePAM 1 MG TAB PO SCH ×2 (08:02→21:13)
[2021-01-24] MEDS: buPROPion XL 150 MG TABCR PO SCH (08:02)
[2021-01-24] MEDS: THIAMINE HCL 100 MG TAB PO SCH (08:02)
[2021-01-24] MEDS: amLODIPine BESYLATE 5 MG TAB PO SCH (08:02)
[2021-01-24] MEDS: FAMOTIDINE 20 MG TAB PO SCH (08:02)
[2021-01-24] MEDS: LORATADINE 10 MG TAB PO SCH (08:02)
[2021-01-24] MEDS: carBAMazepine 200 MG TABLET PO SCH ×2 (08:02→21:01)
[2021-01-24] MEDS: clonazePAM 0.5 MG TAB PO SCH ×2 (10:00→17:01)
--- NOTE | 2021-01-24 15:19 | Psychiatric Progress Note ---
Date of Service January 24, 2021 Impression / Recommendations Impression This is a 55-year-old male with bipolar disorder well-known to from recent hospitalization who presents depressed with low mood and energy. Patient will benefit from inpatient hospitalization for purposes of safety, stabilization, medication management. Patient appears to be responding well to benzodiazepine therapy. It is possible that patient has a catatonic-like process occurring although is seen walking and talking minimally. Nevertheless he is improving with benzodiazepines and we will continue until we see patient's mood is significantly lifted. (1) Bipolar depression: The patient was admitted to the [facility] ([facility] mental health unit) on every 15 minute checks (behavioral with suicide precautions for safety. The patient will participate in group, recreational, and milieu therapies and will be offered additional individual and family sessions as clinically appropriate. 01/24/2021we will increase Wellbutrin XL to 300 mg p.o. every morning 01/23/2021we will continue the current regimen for now, patient making incremental progress 01/22/2021atient appears to have no side effects to Wellbutrin XL. We will continue this dosage for now. Appears to be responding well to 3 times daily clonazepam administration as he is more willing to engage. Patient making very slow progress. 01/21/2021we will hold a.m. doses of Seroquel as patient remains flat. We will continue with Wellbutrin therapy and change to XL formulation starting tomorrow. We will change clonazepam administration to 3 times daily as patient seems to be improving with benzodiazepines. 01/20/2021Wellbutrin 75 mg twice daily added to regimen, patient remains very depressed 01/19/2021we will continue the patient's outpatient regimen for now of Tegretol , Seroquel, mirtazapine, clonazepam and will add Wellbutrin to the regimen in effort to improve mood, energy, motivation. Interval History Chief Complaint "I feel about the same". Review of Systems Sleep Information Total Hours of Sleep: 6.75 Sleep Comments: pt on q-15 minute checks Meal Information Percent Meal Consumed - Breakfast: 100 Percent Meal Consumed - Lunch: 100 Percent Meal Consumed - Dinner: 90 Subjective Subjective Patient seen, chart reviewed and case discussed with treatment team, nursing and social work. Patient reports a good night of sleep and strong appetite. No side effects reported or observed. Regarding mood, patient reports some minimal improvement which they attribute to the medications as well as the therapy they have received on the unit. Patient has been more communicative, and less isolated. He is quicker to respond and more willing to engage with peers. He is agreeable to increasing dosage of Wellbutrin. I spent 30 minutes with the patient, 50% of which was dedicated to counselling and coordination of care. Physical Exam Psychiatric Orientation: alert and oriented x 3 Apperance: appropriately groomed Eye Contact: + poor eye contact Motor Behavior: + psychomotor retardation Affect: + depressed affect, + flat affect, + constricted affect and mood congruent with affect Mood: + depressed mood and + dysphoric mood Thought Process: goal directed thought process and + thought blocking Thought Content: + cognitive distortions, + hopelessness, + worthlessness, + guilt and + self deprecation Suicidal Thoughts: denies suicidal thoughts Homicidal Thoughts: denies homicidal thoughts Hallucinations: no auditory hallucinations Cognition: + attention not intact Estimated Intelligence: consistent with education level Insight: + fair insight Judgement: + poor judgement Vital Signs (Past 24 Hours) Last Vital Signs Temp 36.7 C 01/24/21 06:42 Pulse 91 H 01/24/21 06:42 Resp 16 01/24/21 06:42 BP 125/89 01/24/21 06:42 Pulse Ox 98 01/18/21 15:08 Results & Data ([facility]) Current Inpatient Medications Current Inpatient Medications: Current Inpatient Medications Acetaminophen (Acetaminophen 325 Mg Tab) 650 mg PO Q4H PRN PRN Reason: Headache or Minor Fever Stop: 02/17/21 15:24 Al Hydrox/Mg Hydrox/Simethicone (Aluminum/Magnesium Susp 30 Ml Udc) 30 ml PO Q4H PRN PRN Reason: GI Upset Stop: 02/17/21 15:24 Amlodipine Besylate (Amlodipine Besylate 5 Mg Tab) 5 mg PO QAM [facility] Stop: 02/18/21 08:59 Last Admin: 01/24/21 08:02 Dose: 5 mg Documented by: Bismuth Subsalicylate (Bismuth Subsalicylate Liqd 236 Ml) 15 ml PO PRN PRN PRN Reason: Loose Stool Stop: 02/17/21 15:24 Carbamazepine (Carbamazepine 200 Mg Tablet) 200 mg PO BID [facility] Stop: 02/17/21 20:59 Last Admin: 01/24/21 08:02 Dose: 200 mg Documented by: Clonazepam (Clonazepam 1 Mg Tab) 1 mg PO QPM [facility] Stop: 02/23/21 20:59 Clonazepam (Clonazepam 0.5 Mg Tab) 0.5 mg PO BID17 [facility] Stop: 02/23/21 08:59 Last Admin: 01/24/21 10:00 Dose: Not Given Documented by: Famotidine (Famotidine 20 Mg Tab) 20 mg PO DAILY [facility] Stop: 02/18/21 08:59 Last Admin: 01/24/21 08:02 Dose: 20 mg Documented by: Loratadine (Loratadine 10 Mg Tab) 10 mg PO DAILY [facility] Stop: 02/18/21 08:59 Last Admin: 01/24/21 08:02 Dose: 10 mg Documented by: Magnesium Hydroxide (Magnesium Hydroxide Susp 30 Ml Udc) 30 ml PO DAILY PRN PRN Reason: Constipation Stop: 02/17/21 15:24 Mirtazapine (Mirtazapine Tab 15 Mg Tab) 30 mg PO [facility] Stop: 02/17/21 21:59 Last Admin: 01/23/21 21:36 Dose: 30 mg Documented by: Oxycodone HCl (Oxycodone Hcl Ir 5 Mg Tab (Immediate Release)) 5 mg PO Q4H PRN PRN Reason: pain Stop: 02/01/21 15:37 Quetiapine Fumarate (Quetiapine Fumarate 200 Mg Tab) 200 mg PO [facility] Stop: 02/17/21 21:59 Last Admin: 01/23/21 21:37 Dose: 200 mg Documented by: Sennosides (Senna 8.6 Mg Tab) 17.2 mg PO [facility] Stop: 02/17/21 21:59 Last Admin: 01/23/21 21:35 Dose: 17.2 mg Documented by: Sodium Chloride (Sodium Chloride 0.65% Na Soln 45 Ml ([place])) 1 - 2 sprays NA PRN PRN PRN Reason: Nasal Dryness/Congestion Stop: 02/17/21 15:24 Sodium Chloride (Sodium Chloride 0.65% Na Soln 45 Ml ([place])) 1 - 2 sprays NA PRN PRN PRN Reason: Nasal Congestion Stop: 02/17/21 15:37 Tamsulosin HCl (Tamsulosin Hcl 0.4 Mg Cap) 0.4 mg PO [facility] Stop: 02/17/21 21:59 Last Admin: 01/23/21 21:38 Dose: 0.4 mg Documented by: Thiamine HCl (Thiamine Hcl 100 Mg Tab) 100 mg PO QAM [facility] Stop: 02/18/21 08:59 Last Admin: 01/24/21 08:02 Dose: 100 mg Documented by: Mental Health & Subst Abuse Tx Psychiatrist Name of Psychiatrist: Pratima Gautam Psychiatrist's Phone Number: [phone] Post Discharge Appointments Primary Care Physician Name Of Family Doctor: Dr. Myers
[2021-01-24] MEDS: SENNA 8.6 MG TAB PO SCH (21:00)
[2021-01-24] MEDS: TAMSULOSIN HCL 0.4 MG CAP PO SCH (21:01)
[2021-01-24] MEDS: QUEtiapine FUMARATE 200 MG TAB PO SCH (21:02)
[2021-01-24] MEDS: MIRTAZAPINE TAB 15 MG TAB PO SCH (21:02)
[2021-01-25] MEDS: buPROPion XL 300 MG TABCR PO SCH (08:05)
[2021-01-25] MEDS: clonazePAM 0.5 MG TAB PO SCH ×2 (08:05→16:54)
[2021-01-25] MEDS: carBAMazepine 200 MG TABLET PO SCH ×2 (08:05→20:56)
[2021-01-25] MEDS: LORATADINE 10 MG TAB PO SCH (08:05)
[2021-01-25] MEDS: amLODIPine BESYLATE 5 MG TAB PO SCH (08:05)
[2021-01-25] MEDS: THIAMINE HCL 100 MG TAB PO SCH (08:05)
[2021-01-25] MEDS: FAMOTIDINE 20 MG TAB PO SCH (08:06)
--- NOTE | 2021-01-25 13:32 | Psychiatric Progress Note ---
Date of Service January 25, 2021 Impression / Recommendations Impression This is a 55-year-old male with bipolar disorder well-known to from recent hospitalization who presents depressed with low mood and energy. Patient will benefit from inpatient hospitalization for purposes of safety, stabilization, medication management. Patient appears to be responding well to benzodiazepine therapy. It is possible that patient has a catatonic-like process occurring although is seen walking and talking minimally. Nevertheless he is improving with benzodiazepines and we will continue until we see patient's mood is significantly lifted. (1) Bipolar depression: The patient was admitted to the [facility] ([facility] mental health unit) on every 15 minute checks (behavioral with suicide precautions for safety. The patient will participate in group, recreational, and milieu therapies and will be offered additional individual and family sessions as clinically appropriate. 01/25/2021we will continue the current regimen for now. Patient making very slow incremental progress. 01/24/2021we will increase Wellbutrin XL to 300 mg p.o. every morning 01/23/2021we will continue the current regimen for now, patient making incremental progress 01/22/2021atient appears to have no side effects to Wellbutrin XL. We will continue this dosage for now. Appears to be responding well to 3 times daily clonazepam administration as he is more willing to engage. Patient making very slow progress. 01/21/2021we will hold a.m. doses of Seroquel as patient remains flat. We will continue with Wellbutrin therapy and change to XL formulation starting tomorrow. We will change clonazepam administration to 3 times daily as patient seems to be improving with benzodiazepines. 01/20/2021Wellbutrin 75 mg twice daily added to regimen, patient remains very depressed 01/19/2021we will continue the patient's outpatient regimen for now of Tegretol, Seroquel, mirtazapine, clonazepam and will add Wellbutrin to the regimen in effort to improve mood, energy, motivation. Interval History Chief Complaint "I feel about the same". Review of Systems Sleep Information Total Hours of Sleep: 7.75 Sleep Comments: pt on q-15 minute checks Meal Information Percent Meal Consumed - Breakfast: 100 Percent Meal Consumed - Lunch: 100 Percent Meal Consumed - Dinner: 100 Subjective Subjective Patient seen, chart reviewed and case discussed with treatment team, nursing and social work. Patient reports a good night of sleep and strong appetite. No side effects reported or observed. Regarding mood, patient states that he feels about the same. However he is quicker to respond and more likely to interact with peers and in group therapy. I spent 30 minutes with the patient, 50% of which was dedicated to counselling and coordination of care. Physical Exam Psychiatric Orientation: alert and oriented x 3 Apperance: appropriately groomed Eye Contact: + poor eye contact Motor Behavior: + psychomotor retardation Affect: + depressed affect, + flat affect, + constricted affect and mood congruent with affect Mood: + depressed mood and + dysphoric mood Thought Process: goal directed thought process and + thought blocking Thought Content: + cognitive distortions, + hopelessness, + worthlessness, + guilt and + self deprecation Suicidal Thoughts: denies suicidal thoughts Homicidal Thoughts: denies homicidal thoughts Hallucinations: no auditory hallucinations Cognition: + attention not intact Estimated Intelligence: consistent with education level Insight: + fair insight Judgement: + poor judgement Vital Signs (Past 24 Hours) Last Vital Signs Temp 36.6 C 01/25/21 06:43 Pulse 83 01/25/21 06:43 Resp 16 01/25/21 06:43 BP 137/92 01/25/21 06:43 Pulse Ox 98 01/18/21 15:08 Results & Data ([facility]) Current Inpatient Medications Current Inpatient Medications: Current Inpatient Medications Acetaminophen (Acetaminophen 325 Mg Tab) 650 mg PO Q4H PRN PRN Reason: Headache or Minor Fever Stop: 02/17/21 15:24 Al Hydrox/Mg Hydrox/Simethicone (Aluminum/Magnesium Susp 30 Ml Udc) 30 ml PO Q4H PRN PRN Reason: GI Upset Stop: 02/17/21 15:24 Amlodipine Besylate (Amlodipine Besylate 5 Mg Tab) 5 mg PO QAM [facility] Stop: 02/18/21 08:59 Last Admin: 01/25/21 08:05 Dose: 5 mg Documented by: Bismuth Subsalicylate (Bismuth Subsalicylate Liqd 236 Ml) 15 ml PO PRN PRN PRN Reason: Loose Stool Stop: 02/17/21 15:24 Bupropion HCl (Bupropion Xl 300 Mg Tabcr) 300 mg PO QAM [facility] Stop: 02/24/21 08:59 Last Admin: 01/25/21 08:05 Dose: 300 mg Documented by: Carbamazepine (Carbamazepine 200 Mg Tablet) 200 mg PO BID [facility] Stop: 02/17/21 20:59 Last Admin: 01/25/21 08:05 Dose: 200 mg Documented by: Clonazepam (Clonazepam 1 Mg Tab) 1 mg PO QPM [facility] Stop: 02/23/21 20:59 Last Admin: 01/24/21 21:13 Dose: 1 mg Documented by: Clonazepam (Clonazepam 0.5 Mg Tab) 0.5 mg PO BID17 [facility] Stop: 02/23/21 08:59 Last Admin: 01/25/21 08:05 Dose: 0.5 mg Documented by: Famotidine (Famotidine 20 Mg Tab) 20 mg PO DAILY [facility] Stop: 02/18/21 08:59 Last Admin: 01/25/21 08:06 Dose: 20 mg Documented by: Loratadine (Loratadine 10 Mg Tab) 10 mg PO DAILY [facility] Stop: 02/18/21 08:59 Last Admin: 01/25/21 08:05 Dose: 10 mg Documented by: Magnesium Hydroxide (Magnesium Hydroxide Susp 30 Ml Udc) 30 ml PO DAILY PRN PRN Reason: Constipation Stop: 02/17/21 15:24 Mirtazapine (Mirtazapine Tab 15 Mg Tab) 30 mg PO [facility] Stop: 02/17/21 21:59 Last Admin: 01/24/21 21:02 Dose: 30 mg Documented by: Oxycodone HCl (Oxycodone Hcl Ir 5 Mg Tab (Immediate Release)) 5 mg PO Q4H PRN PRN Reason: pain Stop: 02/01/21 15:37 Quetiapine Fumarate (Quetiapine Fumarate 200 Mg Tab) 200 mg PO HS [facility] Stop: 02/17/21 21:59 Last Admin: 01/24/21 21:02 Dose: 200 mg Documented by: Sennosides (Senna 8.6 Mg Tab) 17.2 mg PO HS [facility] Stop: 02/17/21 21:59 Last Admin: 01/24/21 21:00 Dose: 17.2 mg Documented by: Sodium Chloride (Sodium Chloride 0.65% Na Soln 45 Ml ([place])) 1 - 2 sprays NA PRN PRN PRN Reason: Nasal Dryness/Congestion Stop: 02/17/21 15:24 Sodium Chloride (Sodium Chloride 0.65% Na Soln 45 Ml ([place])) 1 - 2 sprays NA PRN PRN PRN Reason: Nasal Congestion Stop: 02/17/21 15:37 Tamsulosin HCl (Tamsulosin Hcl 0.4 Mg Cap) 0.4 mg PO HS [facility] Stop: 02/17/21 21:59 Last Admin: 01/24/21 21:01 Dose: 0.4 mg Documented by: Thiamine HCl (Thiamine Hcl 100 Mg Tab) 100 mg PO QAM [facility] Stop: 02/18/21 08:59 Last Admin: 01/25/21 08:05 Dose: 100 mg Documented by: Mental Health & Subst Abuse Tx Psychiatrist Name of Psychiatrist: Pratima Gautam Psychiatrist's Phone Number: [phone] Post Discharge Appointments Primary Care Physician Name Of Family Doctor: Dr. Myers
[2021-01-25] MEDS: clonazePAM 1 MG TAB PO SCH (20:56)
[2021-01-25] MEDS: MIRTAZAPINE TAB 15 MG TAB PO SCH (20:57)
[2021-01-25] MEDS: QUEtiapine FUMARATE 200 MG TAB PO SCH (20:58)
[2021-01-25] MEDS: SENNA 8.6 MG TAB PO SCH (20:58)
[2021-01-25] MEDS: TAMSULOSIN HCL 0.4 MG CAP PO SCH (20:59)
[2021-01-26] MEDS: amLODIPine BESYLATE 5 MG TAB PO SCH (08:07)
[2021-01-26] MEDS: buPROPion XL 300 MG TABCR PO SCH (08:08)
[2021-01-26] MEDS: carBAMazepine 200 MG TABLET PO SCH ×2 (08:08→20:39)
[2021-01-26] MEDS: LORATADINE 10 MG TAB PO SCH (08:09)
[2021-01-26] MEDS: clonazePAM 0.5 MG TAB PO SCH (08:09)
[2021-01-26] MEDS: FAMOTIDINE 20 MG TAB PO SCH (08:09)
[2021-01-26] MEDS: THIAMINE HCL 100 MG TAB PO SCH (08:10)
--- NOTE | 2021-01-26 14:29 | Psychiatric Progress Note ---
Date of Service January 26, 2021 Impression / Recommendations Impression This is a 55-year-old male with bipolar disorder well-known to from recent hospitalization who presents depressed with low mood and energy. Patient will benefit from inpatient hospitalization for purposes of safety, stabilization, medication management. Patient appears to be responding well to benzodiazepine therapy. It is possible that patient has a catatonic-like process occurring although is seen walking and talking minimally. Nevertheless he is improving with benzodiazepines and we will continue until we see patient's mood is significantly lifted. (1) Bipolar depression: The patient was admitted to the [facility] ([facility] mental health unit) on every 15 minute checks (behavioral with suicide precautions for safety. The patient will participate in group, recreational, and milieu therapies and will be offered additional individual and family sessions as clinically appropriate. 01/26/2021atient continues to be anxious after lowering dose of clonazepam. We will reinitiate Ativan therapy in order to lessen the anxiety felt by the patient. 01/25/2021we will continue the current regimen for now. Patient making very slow incremental progress. Clonazepam dosing lowered to 0.5 mg 3 times daily. 01/24/2021we will increase Wellbutrin XL to 300 mg p.o. every morning 01/23/2021we will continue the current regimen for now, patient making incremental progress 01/22/2021atient appears to have no side effects to Wellbutrin XL. We will continue this dosage for now. Appears to be responding well to 3 times daily clonazepam administration as he is more willing to engage. Patient making very slow progress. 01/21/2021we will hold a.m. doses of Seroquel as patient remains flat. We will continue with Wellbutrin therapy and change to XL formulation starting tomorrow. We will change clonazepam administration to 3 times daily as patient seems to be improving with benzodiazepines. 01/20/2021Wellbutrin 75 mg twice daily added to regimen, patient remains very depressed 01/19/2021we will continue the patient's outpatient regimen for now of Tegretol, Seroquel, mirtazapine, clonazepam and will add Wellbutrin to the regimen in effort to improve mood, energy, motivation. Interval History Chief Complaint "I just do not know, but I am worried about this meeting tomorrow". Review of Systems Sleep Information Total Hours of Sleep: 7.25 Sleep Comments: pt on q-15 minute checks Meal Information Percent Meal Consumed - Breakfast: 100 Percent Meal Consumed - Lunch: 100 Percent Meal Consumed - Dinner: 90 Subjective Subjective Patient seen, chart reviewed and case discussed with treatment team, nursing and social work. Patient reports a good night of sleep and good appetite. No side effects reported or observed. Regarding mood, patient still remains very depressed. He attended minimal groups today. He is seen often isolating in his room. He is difficult to redirect and is exhibiting a lot of cognitive distortions including being hyper focused on his place is a burden. Mood remains poor. Patient states that he feels anxious. I spent 30 minutes with the patient, 50% of which was dedicated to counselling and coordination of care. Physical Exam Psychiatric Orientation: alert and oriented x 3 Apperance: appropriately groomed Eye Contact: + poor eye contact Motor Behavior: + psychomotor retardation Affect: + depressed affect, + flat affect, + constricted affect and mood congrue nt with affect Mood: + depressed mood and + dysphoric mood Thought Process: goal directed thought process and + thought blocking Thought Content: + cognitive distortions, + hopelessness, + worthlessness, + guilt and + self deprecation Suicidal Thoughts: denies suicidal thoughts Homicidal Thoughts: denies homicidal thoughts Hallucinations: no auditory hallucinations Cognition: + attention not intact Estimated Intelligence: consistent with education level Insight: + fair insight Judgement: + poor judgement Vital Signs (Past 24 Hours) Last Vital Signs Temp 36.7 C 01/26/21 06:30 Pulse 73 01/26/21 06:30 Resp 16 01/26/21 06:30 BP 109/78 01/26/21 06:30 Pulse Ox 98 01/18/21 15:08 Results & Data ([facility]) Current Inpatient Medications Current Inpatient Medications: Current Inpatient Medications Acetaminophen (Acetaminophen 325 Mg Tab) 650 mg PO Q4H PRN PRN Reason: Headache or Minor Fever Stop: 02/17/21 15:24 Al Hydrox/Mg Hydrox/Simethicone (Aluminum/Magnesium Susp 30 Ml Udc) 30 ml PO Q4H PRN PRN Reason: GI Upset Stop: 02/17/21 15:24 Amlodipine Besylate (Amlodipine Besylate 5 Mg Tab) 5 mg PO QAM [facility] Stop: 02/18/21 08:59 Last Admin: 01/26/21 08:07 Dose: 5 mg Documented by: Bismuth Subsalicylate (Bismuth Subsalicylate Liqd 236 Ml) 15 ml PO PRN PRN PRN Reason: Loose Stool Stop: 02/17/21 15:24 Bupropion HCl (Bupropion Xl 300 Mg Tabcr) 300 mg PO QAM [facility] Stop: 02/24/21 08:59 Last Admin: 01/26/21 08:08 Dose: 300 mg Documented by: Carbamazepine (Carbamazepine 200 Mg Tablet) 200 mg PO BID [facility] Stop: 02/17/21 20:59 Last Admin: 01/26/21 08:08 Dose: 200 mg Documented by: Clonazepam (Clonazepam 1 Mg Tab) 1 mg PO QPM [facility] Stop: 02/23/21 20:59 Last Admin: 01/25/21 20:56 Dose: 1 mg Documented by: Clonazepam (Clonazepam 0.5 Mg Tab) 0.5 mg PO BID17 [facility] Stop: 02/23/21 08:59 Last Admin: 01/26/21 08:09 Dose: 0.5 mg Documented by: Famotidine (Famotidine 20 Mg Tab) 20 mg PO DAILY [facility] Stop: 02/18/21 08:59 Last Admin: 01/26/21 08:09 Dose: 20 mg Documented by: Loratadine (Loratadine 10 Mg Tab) 10 mg PO DAILY [facility] Stop: 02/18/21 08:59 Last Admin: 01/26/21 08:09 Dose: 10 mg Documented by: Magnesium Hydroxide (Magnesium Hydroxide Susp 30 Ml Udc) 30 ml PO DAILY PRN PRN Reason: Constipation Stop: 02/17/21 15:24 Mirtazapine (Mirtazapine Tab 15 Mg Tab) 30 mg PO HS [facility] Stop: 02/17/21 21:59 Last Admin: 01/25/21 20:57 Dose: 30 mg Documented by: Oxycodone HCl (Oxycodone Hcl Ir 5 Mg Tab (Immediate Release)) 5 mg PO Q4H PRN PRN Reason: pain Stop: 02/01/21 15:37 Quetiapine Fumarate (Quetiapine Fumarate 200 Mg Tab) 200 mg PO HS [facility] Stop: 02/17/21 21:59 Last Admin: 01/25/21 20:58 Dose: 200 mg Documented by: Sennosides (Senna 8.6 Mg Tab) 17.2 mg PO HS [facility] Stop: 02/17/21 21:59 Last Admin: 01/25/21 20:58 Dose: 17.2 mg Documented by: Sodium Chloride (Sodium Chloride 0.65% Na Soln 45 Ml ([place])) 1 - 2 sprays NA PRN PRN PRN Reason: Nasal Dryness/Congestion Stop: 02/17/21 15:24 Sodium Chloride (Sodium Chloride 0.65% Na Soln 45 Ml ([place])) 1 - 2 sprays NA PRN PRN PRN Reason: Nasal Congestion Stop: 02/17/21 15:37 Tamsulosin HCl (Tamsulosin Hcl 0.4 Mg Cap) 0.4 mg PO HS [facility] Stop: 02/17/21 21:59 Last Admin: 01/25/21 20:59 Dose: 0.4 mg Documented by: Thiamine HCl (Thiamine Hcl 100 Mg Tab) 100 mg PO QAM [facility] Stop: 02/18/21 08:59 Last Admin: 01/26/21 08:10 Dose: 100 mg Documented by: Mental Health & Subst Abuse Tx Psychiatrist Name of Psychiatrist: Pratima Gautam Psychiatrist's Phone Number: [phone] Post Discharge Appointments Primary Care Physician Name Of Family Doctor: Dr. yMers
[2021-01-26] MEDS: LORazepam 1 MG TAB PO SCH (20:39)
[2021-01-26] MEDS: MIRTAZAPINE TAB 15 MG TAB PO SCH (20:40)
[2021-01-26] MEDS: SENNA 8.6 MG TAB PO SCH (20:40)
[2021-01-26] MEDS: QUEtiapine FUMARATE 100 MG TABLET PO SCH (20:41)
[2021-01-26] MEDS: TAMSULOSIN HCL 0.4 MG CAP PO SCH (20:42)
[2021-01-27] MEDS: amLODIPine BESYLATE 5 MG TAB PO SCH (08:57)
[2021-01-27] MEDS: buPROPion XL 300 MG TABCR PO SCH (08:57)
[2021-01-27] MEDS: LORazepam 1 MG TAB PO SCH ×3 (08:58→21:12)
[2021-01-27] MEDS: THIAMINE HCL 100 MG TAB PO SCH (08:58)
[2021-01-27] MEDS: FAMOTIDINE 20 MG TAB PO SCH (08:58)
[2021-01-27] MEDS: LORATADINE 10 MG TAB PO SCH (08:58)
[2021-01-27] MEDS: carBAMazepine 200 MG TABLET PO SCH ×2 (08:58→21:10)
--- NOTE | 2021-01-27 16:03 | Psychiatric Progress Note ---
Date of Service January 27, 2021 Impression / Recommendations Impression This is a 55-year-old male with bipolar disorder well-known to from recent hospitalization who presents depressed with low mood and energy. Patient will benefit from inpatient hospitalization for purposes of safety, stabilization, medication management. Patient appears to be responding well to benzodiazepine therapy. It is possible that patient has a catatonic-like process occurring although is seen walking and talking minimally. Nevertheless he is improving with benzodiazepines and we will continue until we see patient's mood is significantly lifted. (1) Bipolar depression: The patient was admitted to the [facility] ([facility] mental health unit) on every 15 minute checks (behavioral with suicide precautions for safety. The patient will participate in group, recreational, and milieu therapies and will be offered additional individual and family sessions as clinically appropriate. 01/27/2021we will increase Ativan doses to 2 mg p.o. 3 times daily. We will continue with the Seroquel at 250 mg nightly and Wellbutrin at 300 mg p.o. every morning. Tegretol dosage remains at 200 mg p.o. twice daily 01/26/2021atient continues to be anxious after lowering dose of clonazepam. We will reinitiate Ativan therapy in order to lessen the anxiety felt by the patient. 01/25/2021 will continue the current regimen for now. Patient making very slow incremental progress. Clonazepam dosing lowered to 0.5 mg 3 times daily. 01/24/2021we will increase Wellbutrin XL to 300 mg p.o. every morning 01/23/2021we will continue the current regimen for now, patient making incremental progress 01/22/2021atient appears to have no side effects to Wellbutrin XL. We will continue this dosage for now. Appears to be responding well to 3 times daily clonazepam administration as he is more willing to engage. Patient making very slow progress. 01/21/2021 will hold a.m. doses of Seroquel as patient remains flat. We will continue with Wellbutrin therapy and change to XL formulation starting tomorrow. We will change clonazepam administration to 3 times daily as patient seems to be improving with benzodiazepines. 01/20/2021Wellbutrin 75 mg twice daily added to regimen, patient remains very depressed 01/19/2021we will continue the patient's outpatient regimen for now of Tegretol, Seroquel, mirtazapine, clonazepam and will add Wellbutrin to the regimen in effort to improve mood, energy, motivation. Interval History Chief Complaint "Im nervous". Review of Systems Sleep Information Total Hours of Sleep: 7 Sleep Comments: pt on q-15 minute checks Meal Information Percent Meal Consumed - Breakfast: 100 Percent Meal Consumed - Lunch: 100 Percent Meal Consumed - Dinner: 100 Subjective Subjective Patient was seen & assessed and interval progress reviewed with treatment team nursing and social work Patient had family meeting today. During the meeting he was somewhat talkative although minimally so. He continues to display poor mood with low motivation and energy. Per report, patient does better after Ativan administration. He appears more talkative and more willing to engage. Agreeable continue with Ativan treatment alongside the other medications for now. Eating and sleeping well I spent 30 minutes with the patient, 50% of which was dedicated to counselling and coordination of care. Physical Exam Psychiatric Orientation: alert and oriented x 3 Apperance: appropriately groomed Eye Contact: + poor eye contact Motor Behavior: + psychomotor retardation Affect: + depressed affect, + flat affect, + constricted affect and mood congruent with affect Mood: + depressed mood and + dysphoric mood Thought Process: goal directed thought process and + thought blocking Thought Content: + cognitive distortions, + hopelessness, + worthlessness, + guilt and + self deprecation Suicidal Thoughts: denies suicidal thoughts Homicidal Thoughts: denies homicidal thoughts Hallucinations: no auditory hallucinations Cognition: + attention not intact Estimated Intelligence: consistent with education level Insight: + fair insight Judgement: + poor judgement Vital Signs (Past 24 Hours) Last Vital Signs Temp 36.7 C 01/27/21 06:26 Pulse 80 01/27/21 06:27 Resp 16 01/27/21 06:26 BP 139/85 01/27/21 06:27 Pulse Ox 98 01/18/21 15:08 Results & Data ([facility]) Current Inpatient Medications Current Inpatient Medications: Current Inpatient Medications Acetaminophen (Acetaminophen 325 Mg Tab) 650 mg PO Q4H PRN PRN Reason: Headache or Minor Fever Stop: 02/17/21 15:24 Al Hydrox/Mg Hydrox/Simethicone (Aluminum/Magnesium Susp 30 Ml Udc) 30 ml PO Q4H PRN PRN Reason: GI Upset Stop: 02/17/21 15:24 Amlodipine Besylate (Amlodipine Besylate 5 Mg Tab) 5 mg PO QAM [facility] Stop: 02/18/21 08:59 Last Admin: 01/27/21 08:57 Dose: 5 mg Documented by: Bismuth Subsalicylate (Bismuth Subsalicylate Liqd 236 Ml) 15 ml PO PRN PRN PRN Reason: Loose Stool Stop: 02/17/21 15:24 Bupropion HCl (Bupropion Xl 300 Mg Tabcr) 300 mg PO QAM [facility] Stop: 02/24/21 08:59 Last Admin: 01/27/21 08:57 Dose: 300 mg Documented by: Carbamazepine (Carbamazepine 200 Mg Tablet) 200 mg PO BID [facility] Stop: 02/17/21 20:59 Last Admin: 01/27/21 08:58 Dose: 200 mg Documented by: Famotidine (Famotidine 20 Mg Tab) 20 mg PO DAILY [facility] Stop: 02/18/21 08:59 Last Admin: 01/27/21 08:58 Dose: 20 mg Documented by: Loratadine (Loratadine 10 Mg Tab) 10 mg PO DAILY [facility] Stop: 02/18/21 08:59 Last Admin: 01/27/21 08:58 Dose: 10 mg Documented by: Lorazepam (Lorazepam 1 Mg Tab) 1 mg PO TID [facility] Stop: 02/25/21 20:59 Last Admin: 01/27/21 15:14 Dose: 1 mg Documented by: Magnesium Hydroxide (Magnesium Hydroxide Susp 30 Ml Udc) 30 ml PO DAILY PRN PRN Reason: Constipation Stop: 02/17/21 15:24 Mirtazapine (Mirtazapine Tab 15 Mg Tab) 30 mg PO HS [facility] Stop: 02/17/21 21:59 Last Admin: 01/26/21 20:40 Dose: 30 mg Documented by: Oxycodone HCl (Oxycodone Hcl Ir 5 Mg Tab (Immediate Release)) 5 mg PO Q4H PRN PRN Reason: pain Stop: 02/01/21 15:37 Quetiapine Fumarate (Quetiapine Fumarate 100 Mg Tablet) 250 mg PO HS [facility] Stop: 02/25/21 21:59 Last Admin: 01/26/21 20:41 Dose: 250 mg Documented by: Sennosides (Senna 8.6 Mg Tab) 17.2 mg PO HS [facility] Stop: 02/17/21 21:59 Last Admin: 01/26/21 20:40 Dose: 17.2 mg Documented by: Sodium Chloride (Sodium Chloride 0.65% Na Soln 45 Ml ([place])) 1 - 2 sprays NA PRN PRN PRN Reason: Nasal Dryness/Congestion Stop: 02/17/21 15:24 Sodium Chloride (Sodium Chloride 0.65% Na Soln 45 Ml ([place])) 1 - 2 sprays NA PRN PRN PRN Reason: Nasal Congestion Stop: 02/17/21 15:37 Tamsulosin HCl (Tamsulosin Hcl 0.4 Mg Cap) 0.4 mg PO HS [facility] Stop: 02/17/21 21:59 Last Admin: 01/26/21 20:42 Dose: 0.4 mg Documented by: Thiamine HCl (Thiamine Hcl 100 Mg Tab) 100 mg PO QAM [facility] Stop: 02/18/21 08:59 Last Admin: 01/27/21 08:58 Dose: 100 mg Documented by: Mental Health & Subst Abuse Tx Psychiatrist Name of Psychiatrist: Pratima Gautam Psychiatrist's Phone Number: [phone] Date of Appointment with Psychiatrist: 03/23/21 Time of Appointment with Psychiatrist: 10am Psychiatric Appointment Comment: [phone] [id number] Post Discharge Appointments Primary Care Physician Name Of Family Doctor: Dr. Myers
[2021-01-27] MEDS: QUEtiapine FUMARATE 100 MG TABLET PO SCH (21:11)
[2021-01-27] MEDS: MIRTAZAPINE TAB 15 MG TAB PO SCH (21:11)
[2021-01-27] MEDS: SENNA 8.6 MG TAB PO SCH (21:13)
[2021-01-27] MEDS: TAMSULOSIN HCL 0.4 MG CAP PO SCH (21:13)
[2021-01-28] MEDS: amLODIPine BESYLATE 5 MG TAB PO SCH (08:37)
[2021-01-28] MEDS: carBAMazepine 200 MG TABLET PO SCH ×2 (08:37→20:38)
[2021-01-28] MEDS: buPROPion XL 300 MG TABCR PO SCH (08:37)
[2021-01-28] MEDS: THIAMINE HCL 100 MG TAB PO SCH (08:38)
[2021-01-28] MEDS: LORazepam 1 MG TAB PO SCH ×3 (08:38→20:38)
[2021-01-28] MEDS: LORATADINE 10 MG TAB PO SCH (08:38)
[2021-01-28] MEDS: FAMOTIDINE 20 MG TAB PO SCH (08:38)
--- NOTE | 2021-01-28 16:50 | Psychiatric Progress Note ---
Date of Service January 28, 2021 Impression / Recommendations Impression This is a 55-year-old male with bipolar disorder well-known to from recent hospitalization who presents depressed with low mood and energy. Patient will benefit from inpatient hospitalization for purposes of safety, stabilization, medication management. Patient appears to be responding well to benzodiazepine therapy. It is possible that patient has a catatonic-like process occurring although is seen walking and talking minimally. Nevertheless he is improving with benzodiazepines and we will continue until we see patient's mood is significantly lifted. (1) Bipolar depression: The patient was admitted to the [facility] ([facility] mental health unit) on every 15 minute checks (behavioral with suicide precautions for safety. The patient will participate in group, recreational, and milieu therapies and will be offered additional individual and family sessions as clinically appropriate. 01/27/2021we will increase Ativan doses to 2 mg p.o. 3 times daily. We will continue with the Seroquel at 250 mg nightly and Wellbutrin at 300 mg p.o. every morning. Tegretol dosage remains at 200 mg p.o. twice daily 01/26/2021atient continues to be anxious after lowering dose of clonazepam. We will reinitiate Ativan therapy in order to lessen the anxiety felt by the patient. 01/25/2021 will continue the current regimen for now. Patient making very slow incremental progress. Clonazepam dosing lowered to 0.5 mg 3 times daily. 01/24/2021we will increase Wellbutrin XL to 300 mg p.o. every morning 01/23/2021we will continue the current regimen for now, patient making incremental progress 01/22/2021atient appears to have no side effects to Wellbutrin XL. We will continue this dosage for now. Appears to be responding well to 3 times daily clonazepam administration as he is more willing to engage. Patient making very slow progress. 01/21/2021 will hold a.m. doses of Seroquel as patient remains flat. We will continue with Wellbutrin therapy and change to XL formulation starting tomorrow. We will change clonazepam administration to 3 times daily as patient seems to be improving with benzodiazepines. 01/20/2021Wellbutrin 75 mg twice daily added to regimen, patient remains very depressed 01/19/2021we will continue the patient's outpatient regimen for now of Tegretol, Seroquel, mirtazapine, clonazepam and will add Wellbutrin to the regimen in effort to improve mood, energy, motivation. Interval History Chief Complaint "I do not know". Review of Systems Sleep Information Total Hours of Sleep: 7.25 Sleep Comments: pt on q-15 minute checks Meal Information Percent Meal Consumed - Breakfast: 100 Percent Meal Consumed - Lunch: 100 Percent Meal Consumed - Dinner: 100 Subjective Subjective Patient seen, chart reviewed and case discussed with treatment team, nursing and social work. Patient reports a decent night of sleep and strong appetite. No side effects reported or observed. Regarding mood, patient reports some improvement which they attribute to the medications as well as the therapy they have received on the unit. Patient seems somewhat less flat on the increased dose of Ativan. He is agreeable to continue treatment at this time. I spent 30 minutes with the patient, 50% of which was dedicated to counselling and coordination of care. Physical Exam Psychiatric Orientation: alert and oriented x 3 Apperance: appropriately groomed Eye Contact: + poor eye contact Motor Behavior: + psychomotor retardation Affect: + depressed affect, + flat affect, + constricted affect and mood congruent with affect Mood: + depressed mood and + dysphoric mood Thought Process: goal directed thought process and + thought blocking Thought Content: + cognitive distortions, + hopelessness, + worthlessness, + guilt and + self deprecation Suicidal Thoughts: denies suicidal thoughts Homicidal Thoughts: denies homicidal thoughts Hallucinations: no auditory hallucinations Cognition: + attention not intact Estimated Intelligence: consistent with education level Insight: + fair insight Judgement: + poor judgement Vital Signs (Past 24 Hours) Last Vital Signs Temp 36.5 C 01/28/21 06:30 Pulse 73 01/28/21 06:31 Resp 16 01/28/21 06:30 BP 140/92 01/28/21 06:31 Pulse Ox 98 01/18/21 15:08 Results & Data ([facility]) Current Inpatient Medications Current Inpatient Medications: Current Inpatient Medications Acetaminophen (Acetaminophen 325 Mg Tab) 650 mg PO Q4H PRN PRN Reason: Headache or Minor Fever Stop: 02/17/21 15:24 Al Hydrox/Mg Hydrox/Simethicone (Aluminum/Magnesium Susp 30 Ml Udc) 30 ml PO Q4H PRN PRN Reason: GI Upset Stop: 02/17/21 15:24 Amlodipine Besylate (Amlodipine Besylate 5 Mg Tab) 5 mg PO QAM [facility] Stop: 02/18/21 08:59 Last Admin: 01/28/21 08:37 Dose: 5 mg Documented by: Bismuth Subsalicylate (Bismuth Subsalicylate Liqd 236 Ml) 15 ml PO PRN PRN PRN Reason: Loose Stool Stop: 02/17/21 15:24 Bupropion HCl (Bupropion Xl 300 Mg Tabcr) 300 mg PO QAM [facility] Stop: 02/24/21 08:59 Last Admin: 01/28/21 08:37 Dose: 300 mg Documented by: Carbamazepine (Carbamazepine 200 Mg Tablet) 200 mg PO BID [facility] Stop: 02/17/21 20:59 Last Admin: 01/28/21 08:37 Dose: 200 mg Documented by: Famotidine (Famotidine 20 Mg Tab) 20 mg PO DAILY [facility] Stop: 02/18/21 08:59 Last Admin: 01/28/21 08:38 Dose: 20 mg Documented by: Loratadine (Loratadine 10 Mg Tab) 10 mg PO DAILY [facility] Stop: 02/18/21 08:59 Last Admin: 01/28/21 08:38 Dose: 10 mg Documented by: Lorazepam (Lorazepam 1 Mg Tab) 2 mg PO TID [facility] Stop: 02/26/21 20:59 Last Admin: 01/28/21 14:33 Dose: 2 mg Documented by: Magnesium Hydroxide (Magnesium Hydroxide Susp 30 Ml Udc) 30 ml PO DAILY PRN PRN Reason: Constipation Stop: 02/17/21 15:24 Mirtazapine (Mirtazapine Tab 15 Mg Tab) 30 mg PO HS [facility] Stop: 02/17/21 21:59 Last Admin: 01/27/21 21:11 Dose: 30 mg Documented by: Oxycodone HCl (Oxycodone Hcl Ir 5 Mg Tab (Immediate Release)) 5 mg PO Q4H PRN PRN Reason: pain Stop: 02/01/21 15:37 Quetiapine Fumarate (Quetiapine Fumarate 100 Mg Tablet) 250 mg PO HS [facility] Stop: 02/25/21 21:59 Last Admin: 01/27/21 21:11 Dose: 250 mg Documented by: Sennosides (Senna 8.6 Mg Tab) 17.2 mg PO HS [facility] Stop: 02/17/21 21:59 Last Admin: 01/27/21 21:13 Dose: 17.2 mg Documented by: Sodium Chloride (Sodium Chloride 0.65% Na Soln 45 Ml ([place])) 1 - 2 sprays NA PRN PRN PRN Reason: Nasal Dryness/Congestion Stop: 02/17/21 15:24 Sodium Chloride (Sodium Chloride 0.65% Na Soln 45 Ml ([place])) 1 - 2 sprays NA PRN PRN PRN Reason: Nasal Congestion Stop: 02/17/21 15:37 Tamsulosin HCl (Tamsulosin Hcl 0.4 Mg Cap) 0.4 mg PO HS [facility] Stop: 02/17/21 21:59 Last Admin: 01/27/21 21:13 Dose: 0.4 mg Documented by: Thiamine HCl (Thiamine Hcl 100 Mg Tab) 100 mg PO QAM [facility] Stop: 02/18/21 08:59 Last Admin: 01/28/21 08:38 Dose: 100 mg Documented by: Mental Health & Subst Abuse Tx Psychiatrist Name of Psychiatrist: Pratima Gautam Psychiatrist's Phone Number: [phone] Date of Appointment with Psychiatrist: 03/23/21 Time of Appointment with Psychiatrist: 10am Psychiatric Appointment Comment: [phone] [id number] Post Discharge Appointments Primary Care Physician Name Of Family Doctor: Dr. Myers
[2021-01-28] MEDS: MIRTAZAPINE TAB 15 MG TAB PO SCH (20:39)
[2021-01-28] MEDS: QUEtiapine FUMARATE 100 MG TABLET PO SCH (20:39)
[2021-01-28] MEDS: SENNA 8.6 MG TAB PO SCH (20:40)
[2021-01-28] MEDS: TAMSULOSIN HCL 0.4 MG CAP PO SCH (20:40)
[2021-01-29] MEDS: buPROPion XL 300 MG TABCR PO SCH (08:50)
[2021-01-29] MEDS: THIAMINE HCL 100 MG TAB PO SCH (08:50)
[2021-01-29] MEDS: amLODIPine BESYLATE 5 MG TAB PO SCH (08:50)
[2021-01-29] MEDS: LORATADINE 10 MG TAB PO SCH (08:50)
[2021-01-29] MEDS: FAMOTIDINE 20 MG TAB PO SCH (08:50)
[2021-01-29] MEDS: carBAMazepine 200 MG TABLET PO SCH ×2 (08:50→20:43)
[2021-01-29] MEDS: LORazepam 1 MG TAB PO SCH ×3 (08:51→20:44)
--- NOTE | 2021-01-29 15:21 | Psychiatric Progress Note ---
Date of Service January 29, 2021 Impression / Recommendations Impression This is a 55-year-old male with bipolar disorder well-known to from recent hospitalization who presents depressed with low mood and energy. Patient will benefit from inpatient hospitalization for purposes of safety, stabilization, medication management. Patient appears to be responding well to benzodiazepine therapy. It is possible that patient has a catatonic-like process occurring although is seen walking and talking minimally. Nevertheless he is improving with benzodiazepines and we will continue until we see patient's mood is significantly lifted. (1) Bipolar depression: The patient was admitted to the [facility] ([facility]) on every 15 minute checks (behavioral with suicide precautions for safety. The patient will participate in group, recreational, and milieu therapies and will be offered additional individual and family sessions as clinically appropriate. 01/29/2021we will increase Wellbutrin to 450 mg p.o. every morning. 01/27/2021we will increase Ativan doses to 2 mg p.o. 3 times daily. We will continue with the Seroquel at 250 mg nightly and Wellbutrin at 300 mg p.o. every morning. Tegretol dosage remains at 200 mg p.o. twice daily 01/26/2021atient continues to be anxious after lowering dose of clonazepam. We will reinitiate Ativan therapy in order to lessen the anxiety felt by the patient. 01/25/2021 will continue the current regimen for now. Patient making very slow incremental progress. Clonazepam dosing lowered to 0.5 mg 3 times daily. 01/24/2021we will increase Wellbutrin XL to 300 mg p.o. every morning 01/23/2021we will continue the current regimen for now, patient making incremental progress 01/22/2021atient appears to have no side effects to Wellbutrin XL. We will continue this dosage for now. Appears to be responding well to 3 times daily clonazepam administration as he is more willing to engage. Patient making very slow progress. 01/21/2021 will hold a.m. doses of Seroquel as patient remains flat. We will continue with Wellbutrin therapy and change to XL formulation starting tomorrow. We will change clonazepam administration to 3 times daily as patient seems to be improving with benzodiazepines. 01/20/2021Wellbutrin 75 mg twice daily added to regimen, patient remains very depressed 8/17/2021we will continue the patient's outpatient regimen for now of Tegretol, Seroquel, mirtazapine, clonazepam and will add Wellbutrin to the regimen in effort to improve mood, energy, motivation. Interval History Chief Complaint "Good afternoon". Review of Systems Sleep Information Total Hours of Sleep: 7.5 Sleep Comments: pt on q-15 minute checks Meal Information Percent Meal Consumed - Breakfast: 100 Percent Meal Consumed - Lunch: 100 Percent Meal Consumed - Dinner: 100 Subjective Subjective Patient was seen & assessed and interval progress reviewed with treatment team nursing and social work. Patient is eating well and sleeping approximately 7-1/2 hours per night. He does appear less anxious, although according to his self report there is little to no change. Patient's mood does still appear to be quite low. He is agreeable to increase of the Wellbutrin dosage and to target his low mood and m otivation. Attending some groups, interacting with peers appropriately. I spent 30 minutes with the patient, 50% of which was dedicated to counselling and coordination of care. Physical Exam Psychiatric Orientation: alert and oriented x 3 Apperance: appropriately groomed Eye Contact: + poor eye contact Motor Behavior: + psychomotor retardation Affect: + depressed affect, + flat affect, + constricted affect and mood congruent with affect Mood: + depressed mood and + dysphoric mood Thought Process: goal directed thought process and + thought blocking Thought Content: + cognitive distortions, + hopelessness, + worthlessness, + guilt and + self deprecation Suicidal Thoughts: denies suicidal thoughts Homicidal Thoughts: denies homicidal thoughts Hallucinations: no auditory hallucinations Cognition: + attention not intact Estimated Intelligence: consistent with education level Insight: + fair insight Judgement: + poor judgement Vital Signs (Past 24 Hours) Last Vital Signs Temp 36.5 C 01/29/21 06:00 Pulse 81 01/29/21 06:31 Resp 16 01/29/21 06:00 BP 114/78 01/29/21 06:31 Pulse Ox 98 01/18/21 15:08 Results & Data ([facility]) Current Inpatient Medications Current Inpatient Medications: Current Inpatient Medications Acetaminophen (Acetaminophen 325 Mg Tab) 650 mg PO Q4H PRN PRN Reason: Headache or Minor Fever Stop: 02/17/21 15:24 Al Hydrox/Mg Hydrox/Simethicone (Aluminum/Magnesium Susp 30 Ml Udc) 30 ml PO Q4H PRN PRN Reason: GI Upset Stop: 02/17/21 15:24 Amlodipine Besylate (Amlodipine Besylate 5 Mg Tab) 5 mg PO QAM [facility] Stop: 02/18/21 08:59 Last Admin: 01/29/21 08:50 Dose: 5 mg Documented by: Bismuth Subsalicylate (Bismuth Subsalicylate Liqd 236 Ml) 15 ml PO PRN PRN PRN Reason: Loose Stool Stop: 02/17/21 15:24 Bupropion HCl (Bupropion Xl 300 Mg Tabcr) 300 mg PO QAM [facility] Stop: 02/24/21 08:59 Last Admin: 01/29/21 08:50 Dose: 300 mg Documented by: Carbamazepine (Carbamazepine 200 Mg Tablet) 200 mg PO BID [facility] Stop: 02/17/21 20:59 Last Admin: 01/29/21 08:50 Dose: 200 mg Documented by: Famotidine (Famotidine 20 Mg Tab) 20 mg PO DAILY [facility] Stop: 02/18/21 08:59 Last Admin: 01/29/21 08:50 Dose: 20 mg Documented by: Loratadine (Loratadine 10 Mg Tab) 10 mg PO DAILY [facility] Stop: 02/18/21 08:59 Last Admin: 01/29/21 08:50 Dose: 10 mg Documented by: Lorazepam (Lorazepam 1 Mg Tab) 2 mg PO TID [facility] Stop: 02/26/21 20:59 Last Admin: 01/29/21 13:56 Dose: 2 mg Documented by: Magnesium Hydroxide (Magnesium Hydroxide Susp 30 Ml Udc) 30 ml PO DAILY PRN PRN Reason: Constipation Stop: 02/17/21 15:24 Mirtazapine (Mirtazapine Tab 15 Mg Tab) 30 mg PO HS [facility] Stop: 02/17/21 21:59 Last Admin: 01/28/21 20:39 Dose: 30 mg Documented by: Oxycodone HCl (Oxycodone Hcl Ir 5 Mg Tab (Immediate Release)) 5 mg PO Q4H PRN PRN Reason: pain Stop: 02/01/21 15:37 Quetiapine Fumarate (Quetiapine Fumarate 100 Mg Tablet) 250 mg PO HS [facility] Stop: 02/25/21 21:59 Last Admin: 01/28/21 20:39 Dose: 250 mg Documented by: Sennosides (Senna 8.6 Mg Tab) 17.2 mg PO HS [facility] Stop: 02/17/21 21:59 Last Admin: 01/28/21 20:40 Dose: 17.2 mg Documented by: Sodium Chloride (Sodium Chloride 0.65% Na Soln 45 Ml ([place])) 1 - 2 sprays NA PRN PRN PRN Reason: Nasal Dryness/Congestion Stop: 02/17/21 15:24 Sodium Chloride (Sodium Chloride 0.65% Na Soln 45 Ml ([place])) 1 - 2 sprays NA PRN PRN PRN Reason: Nasal Congestion Stop: 02/17/21 15:37 Tamsulosin HCl (Tamsulosin Hcl 0.4 Mg Cap) 0.4 mg PO HS [facility] Stop: 02/17/21 21:59 Last Admin: 01/28/21 20:40 Dose: 0.4 mg Documented by: Thiamine HCl (Thiamine Hcl 100 Mg Tab) 100 mg PO QAM [facility] Stop: 02/18/21 08:59 Last Admin: 01/29/21 08:50 Dose: 100 mg Documented by: Mental Health & Subst Abuse Tx Psychiatrist Name of Psychiatrist: Pratima Gautam Psychiatrist's Phone Number: [phone] Date of Appointment with Psychiatrist: 03/23/21 Time of Appointment with Psychiatrist: 10am Psychiatric Appointment Comment: [phone] [phone] Therapist Name of Therapist: Pratima Guzman Therapist's Date of Therapist Appointment: 02/16/21 Time of Therapist Appointment: 1:30 p.m Therapy Appointment Comment: [phone] [place] [address] Pneumatic Deicer Inspector Name of Pneumatic Deicer Inspector: [facility] Phone Number for Pneumatic Deicer Inspector: [phone] Post Discharge Appointments Primary Care Physician Name Of Family Doctor: Dr. Myers
[2021-01-29] MEDS: QUEtiapine FUMARATE 100 MG TABLET PO SCH (20:44)
[2021-01-29] MEDS: MIRTAZAPINE TAB 15 MG TAB PO SCH (20:44)
[2021-01-29] MEDS: SENNA 8.6 MG TAB PO SCH (20:45)
[2021-01-29] MEDS: TAMSULOSIN HCL 0.4 MG CAP PO SCH (20:46)
[2021-01-30] MEDS: carBAMazepine 200 MG TABLET PO SCH ×2 (08:47→21:07)
[2021-01-30] MEDS: amLODIPine BESYLATE 5 MG TAB PO SCH (08:47)
[2021-01-30] MEDS: buPROPion XL 150 MG TABCR PO SCH (08:47)
[2021-01-30] MEDS: FAMOTIDINE 20 MG TAB PO SCH (08:48)
[2021-01-30] MEDS: LORazepam 1 MG TAB PO SCH ×3 (08:48→21:05)
[2021-01-30] MEDS: LORATADINE 10 MG TAB PO SCH (08:48)
[2021-01-30] MEDS: THIAMINE HCL 100 MG TAB PO SCH (08:48)
--- NOTE | 2021-01-30 13:39 | Psychiatric Progress Note ---
Date of Service January 30, 2021 Impression / Recommendations Impression This is a 55-year-old male with bipolar disorder well-known to from recent hospitalization who presents depressed with low mood and energy. Patient will benefit from inpatient hospitalization for purposes of safety, stabilization, medication management. Patient appears to be responding well to benzodiazepine therapy. It is possible that patient has a catatonic-like process occurring although is seen walking and talking minimally. Nevertheless he is improving with benzodiazepines and we will continue until we see patient's mood is significantly lifted. (1) Bipolar depression: The patient was admitted to the [facility] ([facility] mental health unit) on every 15 minute checks (behavioral with suicide precautions for safety. The patient will participate in group, recreational, and milieu therapies and will be offered additional individual and family sessions as clinically appropriate. 01/29/2021we will increase Wellbutrin to 450 mg p.o. every morning. 01/27/2021 will increase Ativan doses to 2 mg p.o. 3 times daily. We will continue with the Seroquel at 250 mg nightly and Wellbutrin at 300 mg p.o. every morning. Tegretol dosage remains at 200 mg p.o. twice daily 01/26/2021atient continues to be anxious after lowering dose of clonazepam. We will reinitiate Ativan therapy in order to lessen the anxiety felt by the patient. 01/25/2021 will continue the current regimen for now. Patient making very slow incremental progress. Clonazepam dosing lowered to 0.5 mg 3 times daily. 01/24/2021we will increase Wellbutrin XL to 300 mg p.o. every morning 01/23/2021we will continue the current regimen for now, patient making incremental progress 01/22/2021atient appears to have no side effects to Wellbutrin XL. We will continue this dosage for now. Appears to be responding well to 3 times daily clonazepam administration as he is more willing to engage. Patient making very slow progress. 01/21/2021 will hold a.m. doses of Seroquel as patient remains flat. We will continue with Wellbutrin therapy and change to XL formulation starting tomorrow. We will change clonazepam administration to 3 times daily as patient seems to be improving with benzodiazepines. 01/20/2021Wellbutrin 75 mg twice daily added to regimen, patient remains very depressed 8/17/2021we will continue the patient's outpatient regimen for now of Tegretol, Seroquel, mirtazapine, clonazepam and will add Wellbutrin to the regimen in effort to improve mood, energy, motivation. Interval History Chief Complaint "im not sure". Review of Systems Sleep Information Total Hours of Sleep: 7 Sleep Comments: pt on q-15 minute checks Meal Information Percent Meal Consumed - Breakfast: 100 Percent Meal Consumed - Lunch: 100 Percent Meal Consumed - Dinner: 100 Subjective Subjective Patient was seen & assessed and interval progress reviewed with treatment team nursing and social work Patient took the increased dosage this morning, denying any side effects. Patient's mood still continues to be quite poor, he is isolating and seems to be avoiding interactions with peers. Patient is seen eating his meals and sleeping appropriately. I spoke with his brother on the phone yesterday who is continue to search for living options for the patient once he is discharged. I spent 30 minutes with the patient, 50% of which was dedicated to counselling and coordination of care. Physical Exam Psychiatric Orientation: alert and oriented x 3 Apperance: appropriately groomed Eye Contact: + poor eye contact Motor Behavior: + psychomotor retardation Affect: + depressed affect, + flat affect, + constricted affect and mood congruent with affect Mood: + depressed mood and + dysphoric mood Thought Process: goal directed thought process and + thought blocking Thought Content: + cognitive distortions, + hopelessness, + worthlessness, + guilt and + self deprecation Suicidal Thoughts: denies suicidal thoughts Homicidal Thoughts: denies homicidal thoughts Hallucinations: no auditory hallucinations Cognition: + attention not intact Estimated Intelligence: consistent with education level Insight: + fair insight Judgement: + poor judgement Vital Signs (Past 24 Hours) Last Vital Signs Temp 36.5 C 01/30/21 06:28 Pulse 81 01/30/21 06:28 Resp 16 01/30/21 06:28 BP 134/91 01/30/21 06:28 Pulse Ox 98 01/18/21 15:08 Results & Data ([facility]) Current Inpatient Medications Current Inpatient Medications: Current Inpatient Medications Acetaminophen (Acetaminophen 325 Mg Tab) 650 mg PO Q4H PRN PRN Reason: Headache or Minor Fever Stop: 02/17/21 15:24 Al Hydrox/Mg Hydrox/Simethicone (Aluminum/Magnesium Susp 30 Ml Udc) 30 ml PO Q4H PRN PRN Reason: GI Upset Stop: 02/17/21 15:24 Amlodipine Besylate (Amlodipine Besylate 5 Mg Tab) 5 mg PO QAM [facility] Stop: 02/18/21 08:59 Last Admin: 01/30/21 08:47 Dose: 5 mg Documented by: Bismuth Subsalicylate (Bismuth Subsalicylate Liqd 236 Ml) 15 ml PO PRN PRN PRN Reason: Loose Stool Stop: 02/17/21 15:24 Bupropion HCl (Bupropion Xl 150 Mg Tabcr) 450 mg PO QAM [facility] Stop: 03/01/21 08:59 Last Admin: 01/30/21 08:47 Dose: 450 mg Documented by: Carbamazepine (Carbamazepine 200 Mg Tablet) 200 mg PO BID [facility] Stop: 02/17/21 20:59 Last Admin: 01/30/21 08:47 Dose: 200 mg Documented by: Famotidine (Famotidine 20 Mg Tab) 20 mg PO DAILY [facility] Stop: 02/18/21 08:59 Last Admin: 01/30/21 08:48 Dose: 20 mg Documented by: Loratadine (Loratadine 10 Mg Tab) 10 mg PO DAILY [facility] Stop: 02/18/21 08:59 Last Admin: 01/30/21 08:48 Dose: 10 mg Documented by: Lorazepam (Lorazepam 1 Mg Tab) 2 mg PO TID [facility] Stop: 02/26/21 20:59 Last Admin: 01/30/21 08:48 Dose: 2 mg Documented by: Magnesium Hydroxide (Magnesium Hydroxide Susp 30 Ml Udc) 30 ml PO DAILY PRN PRN Reason: Constipation Stop: 02/17/21 15:24 Mirtazapine (Mirtazapine Tab 15 Mg Tab) 30 mg PO [facility] Stop: 02/17/21 21:59 Last Admin: 01/29/21 20:44 Dose: 30 mg Documented by: Oxycodone HCl (Oxycodone Hcl Ir 5 Mg Tab (Immediate Release)) 5 mg PO Q4H PRN PRN Reason: pain Stop: 02/01/21 15:37 Quetiapine Fumarate (Quetiapine Fumarate 100 Mg Tablet) 250 mg PO HS [facility] Stop: 02/25/21 21:59 Last Admin: 01/29/21 20:44 Dose: 250 mg Documented by: Sennosides (Senna 8.6 Mg Tab) 17.2 mg PO HS [facility] Stop: 02/17/21 21:59 Last Admin: 01/29/21 20:45 Dose: 17.2 mg Documented by: Sodium Chloride (Sodium Chloride 0.65% Na Soln 45 Ml ([place])) 1 - 2 sprays NA PRN PRN PRN Reason: Nasal Dryness/Congestion Stop: 02/17/21 15:24 Sodium Chloride (Sodium Chloride 0.65% Na Soln 45 Ml ([place])) 1 - 2 sprays NA PRN PRN PRN Reason: Nasal Congestion Stop: 02/17/21 15:37 Tamsulosin HCl (Tamsulosin Hcl 0.4 Mg Cap) 0.4 mg PO HS [facility] Stop: 02/17/21 21:59 Last Admin: 01/29/21 20:46 Dose: 0.4 mg Documented by: Thiamine HCl (Thiamine Hcl 100 Mg Tab) 100 mg PO QAM [facility] Stop: 02/18/21 08:59 Last Admin: 01/30/21 08:48 Dose: 100 mg Documented by: Mental Health & Subst Abuse Tx Psychiatrist Name of Psychiatrist: Pratima Gautam Psychiatrist's Phone Number: [phone] Date of Appointment with Psychiatrist: 03/23/21 Time of Appointment with Psychiatrist: 10am Psychiatric Appointment Comment: [phone] [phone] Therapist Name of Therapist: Pratima Guzman Therapist's Date of Therapist Appointment: 02/16/21 Time of Therapist Appointment: 1:30 p.m Therapy Appointment Comment: [phone] [place] [address] Clinical Systems Educator Name of Clinical Systems Educator: [facility] Phone Number for Clinical Systems Educator: [phone] Post Discharge Appointments Primary Care Physician Name Of Family Doctor: Dr. Myers
[2021-01-30] MEDS: SENNA 8.6 MG TAB PO SCH (21:05)
[2021-01-30] MEDS: MIRTAZAPINE TAB 15 MG TAB PO SCH (21:06)
[2021-01-30] MEDS: TAMSULOSIN HCL 0.4 MG CAP PO SCH (21:07)
[2021-01-30] MEDS: QUEtiapine FUMARATE 100 MG TABLET PO SCH (21:25)
[2021-01-31] MEDS: amLODIPine BESYLATE 5 MG TAB PO SCH (09:01)
[2021-01-31] MEDS: buPROPion XL 150 MG TABCR PO SCH (09:01)
[2021-01-31] MEDS: FAMOTIDINE 20 MG TAB PO SCH (09:02)
[2021-01-31] MEDS: LORazepam 1 MG TAB PO SCH ×3 (09:02→21:07)
[2021-01-31] MEDS: carBAMazepine 200 MG TABLET PO SCH ×2 (09:02→21:03)
[2021-01-31] MEDS: THIAMINE HCL 100 MG TAB PO SCH (09:02)
[2021-01-31] MEDS: LORATADINE 10 MG TAB PO SCH (09:02)
--- NOTE | 2021-01-31 10:22 | Psychiatric Progress Note ---
Date of Service January 31, 2021 Impression / Recommendations Impression This is a 55-year-old male with bipolar disorder well-known to from recent hospitalization who presents depressed with low mood and energy. Patient will benefit from inpatient hospitalization for purposes of safety, stabilization, medication management. Patient appears to be responding well to benzodiazepine therapy. It is possible that patient has a catatonic-like process occurring although is seen walking and talking minimally. Nevertheless he is improving with benzodiazepines and we will continue until we see patient's mood is significantly lifted. (1) Bipolar depression: The patient was admitted to the [facility] ([facility] mental health unit) on every 15 minute checks (behavioral with suicide precautions for safety. The patient will participate in group, recreational, and milieu therapies and will be offered additional individual and family sessions as clinically appropriate. 01/31/2021 will continue with the increased Wellbutrin XL. We will also decrease Seroquel to 200 mg p.o. nightly 01/29/2021 will increase Wellbutrin to 450 mg p.o. every morning. 01/27/2021 will increase Ativan doses to 2 mg p.o. 3 times daily. We will continue with the Seroquel at 250 mg nightly and Wellbutrin at 300 mg p.o. every morning. Tegretol dosage remains at 200 mg p.o. twice daily 01/26/2021atient continues to be anxious after lowering dose of clonazepam. We will reinitiate Ativan therapy in order to lessen the anxiety felt by the patient. 01/25/2021 will continue the current regimen for now. Patient making very slow incremental progress. Clonazepam dosing lowered to 0.5 mg 3 times daily. 01/24/2021 will increase Wellbutrin XL to 300 mg p.o. every morning 01/23/2021 will continue the current regimen for now, patient making incremental progress 01/22/2021atient appears to have no side effects to Wellbutrin XL. We will continue this dosage for now. Appears to be responding well to 3 times daily clonazepam administration as he is more willing to engage. Patient making very slow progress. 01/21/2021 will hold a.m. doses of Seroquel as patient remains flat. We will continue with Wellbutrin therapy and change to XL formulation starting tomorrow. We will change clonazepam administration to 3 times daily as patient seems to be improving with benzodiazepines. 01/20/2021Wellbutrin 75 mg twice daily added to regimen, patient remains very depressed 01/19/2021we will continue the patient's outpatient regimen for now of Tegretol, Seroquel, mirtazapine, clonazepam and will add Wellbutrin to the regimen in effort to improve mood, energy, motivation. Interval History Chief Complaint "I do not now". Review of Systems Sleep Information Total Hours of Sleep: 6.75 Sleep Comments: pt on q-15 minute checks Meal Information Percent Meal Consumed - Breakfast: 100 Percent Meal Consumed - Lunch: 100 Percent Meal Consumed - Dinner: 100 Subjective Subjective Patient seen, chart reviewed and case discussed with treatment team, nursing and social work. Patient reports a good night of sleep and strong appetite. No side effects reported or observed. Regarding mood, patient reports some slight improvement which they attribute to the medications as well as the therapy they have received on the unit. Overall though he is reporting feeling the same. He was instructed that he is now on the maximum dose of Wellbutrin and that we will have to give this a couple days to work. In addition to this we will be lowering his Seroquel dosage back down to 200 mg. With regards to anxiety, patient states that he still feeling anxious. Seems to be benefiting from the lorazepam, although dose remains quite high. I spent 30 minutes with the patient, 50% of which was dedicated to counselling and coordination of care. Physical Exam Psychiatric Orientation: alert and oriented x 3 Apperance: appropriately groomed Eye Contact: + poor eye contact Motor Behavior: + psychomotor retardation Affect: + depressed affect, + flat affect, + constricted affect and mood congruent with affect Mood: + depressed mood and + dysphoric mood Thought Process: goal directed thought process and + thought blocking Thought Content: + cognitive distortions, + hopelessness, + worthlessness, + guilt and + self deprecation Suicidal Thoughts: denies suicidal thoughts Homicidal Thoughts: denies homicidal thoughts Hallucinations: no auditory hallucinations Cognition: + attention not intact Estimated Intelligence: consistent with education level Insight: + fair insight Judgement: + poor judgement Vital Signs (Past 24 Hours) Last Vital Signs Temp 36.6 C 01/31/21 06:00 Pulse 77 01/31/21 06:15 Resp 16 01/31/21 06:00 BP 128/91 01/31/21 06:15 Pulse Ox 98 01/18/21 15:08 Results & Data ([facility]) Current Inpatient Medications Current Inpatient Medications: Current Inpatient Medications Acetaminophen (Acetaminophen 325 Mg Tab) 650 mg PO Q4H PRN PRN Reason: Headache or Minor Fever Stop: 02/17/21 15:24 Al Hydrox/Mg Hydrox/Simethicone (Aluminum/Magnesium Susp 30 Ml Udc) 30 ml PO Q4H PRN PRN Reason: GI Upset Stop: 02/17/21 15:24 Amlodipine Besylate (Amlodipine Besylate 5 Mg Tab) 5 mg PO QAM [facility] Stop: 02/18/21 08:59 Last Admin: 01/31/21 09:01 Dose: 5 mg Documented by: Bismuth Subsalicylate (Bismuth Subsalicylate Liqd 236 Ml) 15 ml PO PRN PRN PRN Reason: Loose Stool Stop: 02/17/21 15:24 Bupropion HCl (Bupropion Xl 150 Mg Tabcr) 450 mg PO QAM [facility] Stop: 03/01/21 08:59 Last Admin: 01/31/21 09:01 Dose: 450 mg Documented by: Carbamazepine (Carbamazepine 200 Mg Tablet) 200 mg PO BID [facility] Stop: 02/17/21 20:59 Last Admin: 01/31/21 09:02 Dose: 200 mg Documented by: Famotidine (Famotidine 20 Mg Tab) 20 mg PO DAILY [facility] Stop: 02/18/21 08:59 Last Admin: 01/31/21 09:02 Dose: 20 mg Documented by: Loratadine (Loratadine 10 Mg Tab) 10 mg PO DAILY [facility] Stop: 02/18/21 08:59 Last Admin: 01/31/21 09:02 Dose: 10 mg Documented by: Lorazepam (Lorazepam 1 Mg Tab) 2 mg PO TID [facility] Stop: 02/26/21 20:59 Last Admin: 01/31/21 09:02 Dose: 2 mg Documented by: Magnesium Hydroxide (Magnesium Hydroxide Susp 30 Ml Udc) 30 ml PO DAILY PRN PRN Reason: Constipation Stop: 02/17/21 15:24 Mirtazapine (Mirtazapine Tab 15 Mg Tab) 30 mg PO HS [facility] Stop: 02/17/21 21:59 Last Admin: 01/30/21 21:06 Dose: 30 mg Documented by: Oxycodone HCl (Oxycodone Hcl Ir 5 Mg Tab (Immediate Release)) 5 mg PO Q4H PRN PRN Reason: pain Stop: 02/01/21 15:37 Quetiapine Fumarate (Quetiapine Fumarate 200 Mg Tab) 200 mg PO [facility] Stop: 03/02/21 21:59 Sennosides (Senna 8.6 Mg Tab) 17.2 mg PO [facility] Stop: 02/17/21 21:59 Last Admin: 01/30/21 21:05 Dose: 17.2 mg Documented by: Sodium Chloride (Sodium Chloride 0.65% Na Soln 45 Ml ([place])) 1 - 2 sprays NA PRN PRN PRN Reason: Nasal Dryness/Congestion Stop: 02/17/21 15:24 Sodium Chloride (Sodium Chloride 0.65% Na Soln 45 Ml ([place])) 1 - 2 sprays NA PRN PRN PRN Reason: Nasal Congestion Stop: 02/17/21 15:37 Tamsulosin HCl (Tamsulosin Hcl 0.4 Mg Cap) 0.4 mg PO [facility] Stop: 02/17/21 21:59 Last Admin: 01/30/21 21:07 Dose: 0.4 mg Documented by: Thiamine HCl (Thiamine Hcl 100 Mg Tab) [facility] Stop: 02/18/21 08:59 Last Admin: 01/31/21 09:02 Dose: 100 mg Documented by: Mental Health & Subst Abuse Tx Psychiatrist Name of Psychiatrist: Pratima Gautam Psychiatrist's Phone Number: [phone] Date of Appointment with Psychiatrist: 03/23/21 Time of Appointment with Psychiatrist: 10am Psychiatric Appointment Comment: [phone] [phone] Therapist Name of Therapist: Pratima Guzman Therapist's Date of Therapist Appointment: 02/16/21 Time of Therapist Appointment: 1:30 p.m Therapy Appointment Comment: [phone] [place] [address] Propulsion Motor And Generator Repairer Name of Propulsion Motor And Generator Repairer: [facility] Phone Number for Propulsion Motor And Generator Repairer: [phone] Post Discharge Appointments Primary Care Physician Name Of Family Doctor: Dr. Myers
[2021-01-31] MEDS: SENNA 8.6 MG TAB PO SCH (21:02)
[2021-01-31] MEDS: TAMSULOSIN HCL 0.4 MG CAP PO SCH (21:03)
[2021-01-31] MEDS: QUEtiapine FUMARATE 200 MG TAB PO SCH (21:03)
[2021-01-31] MEDS: MIRTAZAPINE TAB 15 MG TAB PO SCH (21:04)
[2021-02-01] MEDS: amLODIPine BESYLATE 5 MG TAB PO SCH (08:48)
[2021-02-01] MEDS: FAMOTIDINE 20 MG TAB PO SCH (08:49)
[2021-02-01] MEDS: carBAMazepine 200 MG TABLET PO SCH ×2 (08:49→20:37)
[2021-02-01] MEDS: buPROPion XL 150 MG TABCR PO SCH (08:49)
[2021-02-01] MEDS: THIAMINE HCL 100 MG TAB PO SCH (08:50)
[2021-02-01] MEDS: LORazepam 1 MG TAB PO SCH ×3 (08:50→20:39)
[2021-02-01] MEDS: LORATADINE 10 MG TAB PO SCH (08:50)
--- NOTE | 2021-02-01 12:55 | Psychiatric Progress Note ---
Date of Service February 01, 2021 Impression / Recommendations Impression This is a 55-year-old male with bipolar disorder well-known to [facility]S from recent hospitalization who presents depressed with low mood and energy, catatonic features have responded Ativan. (1) Bipolar depression: 02/01/2021--patient known to me from previous hospitalization, no Tegretol level on chart. Patient is refusing bloodwork following discussion of therapeutic levels and autoinduction. Risks/benefits/alternatives reviewed re: each of his medication, including but not limited to risks of combined sedation and polypharmacy, particularly short term use of Ativan given controlled substance/habit forming potential. Should be tapered slowly on an outpatient basis as Wellbutrin efficacy peaks to avoid recurrence of catatonia. Engage cousin in plan of care as currently unable to manage his own medications, organize to cook, etc outside of the hospital. 01/31/2021 will continue with the increased Wellbutrin XL. We will also decrease Seroquel to 200 mg p.o. nightly 01/29/2021we will increase Wellbutrin to 450 mg p.o. every morning. 01/27/2021 will increase Ativan doses to 2 mg p.o. 3 times daily. We will continue with the Seroquel at 250 mg nightly and Wellbutrin at 300 mg p.o. every morning. Tegretol dosage remains at 200 mg p.o. twice daily 01/26/2021atient continues to be anxious after lowering dose of clonazepam. We will reinitiate Ativan therapy in order to lessen the anxiety felt by the patient. 01/25/2021 will continue the current regimen for now. Patient making very slow incremental progress. Clonazepam dosing lowered to 0.5 mg 3 times daily. 01/24/2021 will increase Wellbutrin XL to 300 mg p.o. every morning 01/23/2021 will continue the current regimen for now, patient making incremental progress 01/22/2021atient appears to have no side effects to Wellbutrin XL. We will continue this dosage for now. Appears to be responding well to 3 times daily clonazepam administration as he is more willing to engage. Patient making very slow progress. 01/21/2021 will hold a.m. doses of Seroquel as patient remains flat. We will continue with Wellbutrin therapy and change to XL formulation starting tomorrow. We will change clonazepam administration to 3 times daily as patient seems to be improving with benzodiazepines. 01/20/2021Wellbutrin 75 mg twice daily added to regimen, patient remains very depressed 01/19/2021we will continue the patient's outpatient regimen for now of Tegretol, Seroquel, mirtazapine, clonazepam and will add Wellbutrin to the regimen in effort to improve mood, energy, motivation. The patient was admitted to the [facility] ([facility] unit) on every 15 minute checks (behavioral with suicide precautions for safety. The patient will participate in group, recreational, and milieu therapies and will be offered additional individual and family sessions as clinically appropriate. Interval History Identifying Information 55 yo male with hx of OCPD and bipolar dx (primarily depression with brief hypomania) admit on 01/10/21 for inability to care for self. Chief Complaint "I don't want any med changes. I want family to oversee my medication". Review of Systems Sleep Information Total Hours of Sleep: 7 Sleep Comments: pt on q-15 minute checks Meal Information Percent Meal Consumed - Breakfast: 100 Percent Meal Consumed - Lunch: 100 Percent Meal Consumed - Dinner: 100 Subjective Subjective Patient was seen & assessed and interval progress reviewed with treatment team. Brother updated by phone following individual session with patient. Patient has been attending more groups. seems less sedated. Reports that will agree to stay with cousin Shilpi Ramesh in [place] to continue to receive in [facility]. Cataonic features are resolving. Brother reports patient "seemed great, really talkative after his surgery and then crashed like a day or so later". Reviewed that may have had disinhibition from anesthesia since short lived. Physical Exam Psychiatric Orientation: alert and oriented x 3 Apperance: appropriately groomed Eye Contact: + poor eye contact Motor Behavior: + psychomotor retardation Affect: + depressed affect and + flat affect Mood: + depressed mood Thought Process: + concrete thought process Thought Content: reality based without delusions Suicidal Thoughts: denies suicidal thoughts Homicidal Thoughts: denies homicidal thoughts Hallucinations: no auditory hallucinations Cognition: + attention not intact Estimated Intelligence: consistent with education level Insight: + limited insight Judgement: + limited judgement Vital Signs (Past 24 Hours) Last Vital Signs Temp 36.6 C 02/01/21 06:50 Pulse 79 02/01/21 06:51 Resp 14 02/01/21 06:50 BP 101/69 02/01/21 06:51 Pulse Ox 98 01/18/21 15:08 Results & Data ([facility]) Current Inpatient Medications Current Inpatient Medications: Current Inpatient Medications Acetaminophen (Acetaminophen 325 Mg Tab) 650 mg PO Q4H PRN PRN Reason: Headache or Minor Fever Stop: 02/17/21 15:24 Al Hydrox/Mg Hydrox/Simethicone (Aluminum/Magnesium Susp 30 Ml Udc) 30 ml PO Q4H PRN PRN Reason: GI Upset Stop: 02/17/21 15:24 Amlodipine Besylate (Amlodipine Besylate 5 Mg Tab) 5 mg PO QAM [facility] Stop: 02/18/21 08:59 Last Admin: 02/01/21 08:48 Dose: 5 mg Documented by: Bismuth Subsalicylate (Bismuth Subsalicylate Liqd 236 Ml) 15 ml PO PRN PRN PRN Reason: Loose Stool Stop: 02/17/21 15:24 Bupropion HCl (Bupropion Xl 150 Mg Tabcr) 450 mg PO QAM [facility] Stop: 03/01/21 08:59 Last Admin: 02/01/21 08:49 Dose: 450 mg Documented by: Carbamazepine (Carbamazepine 200 Mg Tablet) 200 mg PO BID [facility] Stop: 02/17/21 20:59 Last Admin: 02/01/21 08:49 Dose: 200 mg Documented by: Famotidine (Famotidine 20 Mg Tab) 20 mg PO DAILY [facility] Stop: 02/18/21 08:59 Last Admin: 02/01/21 08:49 Dose: 20 mg Documented by: Loratadine (Loratadine 10 Mg Tab) 10 mg PO DAILY [facility] Stop: 02/18/21 08:59 Last Admin: 02/01/21 08:50 Dose: 10 mg Documented by: Lorazepam (Lorazepam 1 Mg Tab) 2 mg PO TID [facility] Stop: 02/26/21 20:59 Last Admin: 02/01/21 08:50 Dose: 2 mg Documented by: Magnesium Hydroxide (Magnesium Hydroxide Susp 30 Ml Udc) 30 ml PO DAILY PRN PRN Reason: Constipation Stop: 02/17/21 15:24 Mirtazapine (Mirtazapine Tab 15 Mg Tab) 30 mg PO HS [facility] Stop: 02/17/21 21:59 Last Admin: 01/31/21 21:04 Dose: 30 mg Documented by: Oxycodone HCl (Oxycodone Hcl Ir 5 Mg Tab (Immediate Release)) 5 mg PO Q4H PRN PRN Reason: pain Stop: 02/01/21 15:37 Quetiapine Fumarate (Quetiapine Fumarate 200 Mg Tab) 200 mg PO HS [facility] Stop: 03/02/21 21:59 Last Admin: 01/31/21 21:03 Dose: 200 mg Documented by: Sennosides (Senna 8.6 Mg Tab) 17.2 mg PO HS [facility] Stop: 02/17/21 21:59 Last Admin: 01/31/21 21:02 Dose: 17.2 mg Documented by: Sodium Chloride (Sodium Chloride 0.65% Na Soln 45 Ml ([place])) 1 - 2 sprays NA PRN PRN PRN Reason: Nasal Dryness/Congestion Stop: 02/17/21 15:24 Sodium Chloride (Sodium Chloride 0.65% Na Soln 45 Ml ([place])) 1 - 2 sprays NA PRN PRN PRN Reason: Nasal Congestion Stop: 02/17/21 15:37 Tamsulosin HCl (Tamsulosin Hcl 0.4 Mg Cap) 0.4 mg PO [facility] Stop: 02/17/21 21:59 Last Admin: 01/31/21 21:03 Dose: 0.4 mg Documented by: Thiamine HCl (Thiamine Hcl 100 Mg Tab) 100 mg PO QA [facility] Stop: 02/18/21 08:59 Last Admin: 02/01/21 08:50 Dose: 100 mg Documented by: Mental Health & Subst Abuse Tx Psychiatrist Name of Psychiatrist: Pratima Gautam Psychiatrist's Phone Number: [phone] Date of Appointment with Psychiatrist: 03/23/21 Time of Appointment with Psychiatrist: 10am Psychiatric Appointment Comment: [phone] [id number] Therapist Name of Therapist: Pratima Guzman Therapist's Date of Therapist Appointment: 02/16/21 Time of Therapist Appointment: 1:30 p.m Therapy Appointment Comment: [phone] [place] [address] Cnc Service Technician Name of Cnc Service Technician: [facility] - [facility] Phone Number for Cnc Service Technician: [phone] Post Discharge Appointments Primary Care Physician Name Of Family Doctor: Dr. Myers
[2021-02-01] MEDS ORDERED: SENNA 8.6 MG TAB PO PRN (13:39)
[2021-02-01] MEDS ORDERED: THIAMINE HCL 100 MG TAB PO PRN (13:39)
[2021-02-01] MEDS: TAMSULOSIN HCL 0.4 MG CAP PO SCH (20:37)
[2021-02-01] MEDS: QUEtiapine FUMARATE 200 MG TAB PO SCH (20:37)
[2021-02-01] MEDS: MIRTAZAPINE TAB 15 MG TAB PO SCH (20:37)
[2021-02-02] MEDS: buPROPion XL 150 MG TABCR PO SCH (08:32)
[2021-02-02] MEDS: LORazepam 1 MG TAB PO SCH ×2 (08:32→20:19)
[2021-02-02] MEDS: carBAMazepine 200 MG TABLET PO SCH ×2 (08:33→20:18)
[2021-02-02] MEDS: FAMOTIDINE 20 MG TAB PO SCH (08:33)
[2021-02-02] MEDS: amLODIPine BESYLATE 5 MG TAB PO SCH (08:33)
[2021-02-02] MEDS: LORATADINE 10 MG TAB PO SCH (08:33)
--- NOTE | 2021-02-02 13:38 | Psychiatric Progress Note ---
Date of Service February 02, 2021 Impression / Recommendations Impression This is a 55-year-old male with bipolar disorder well-known to [facility] from recent hospitalization who presents depressed with low mood and energy, catatonic features have responded Ativan. (1) Bipolar depression: 02/02/2021--trial of Ativan 2 mg, 1.5 mg, 2 mg with consideration for further dose reduction in it or Seroquel. 02/01/2021--patient known to me from previous hospitalization, no Tegretol level on chart. Patient is refusing bloodwork following discussion of therapeutic levels and autoinduction. Risks/benefits/alternatives reviewed re: each of his medication, including but not limited to risks of combined sedation and polypharmacy, particularly short term use of Ativan given controlled substance/habit forming potential. Should be tapered slowly on an outpatient basis as Wellbutrin efficacy peaks to avoid recurrence of catatonia. Engage cousin in plan of care as currently unable to manage his own medications, organize to cook, etc outside of the hospital. 01/31/2021 will continue with the increased Wellbutrin XL. We will also decrease Seroquel to 200 mg p.o. nightly 01/29/2021 will increase Wellbutrin to 450 mg p.o. every morning. 01/27/2021 will increase Ativan doses to 2 mg p.o. 3 times daily. We will continue with the Seroquel at 250 mg nightly and Wellbutrin at 300 mg p.o. every morning. Tegretol dosage remains at 200 mg p.o. twice daily 01/26/2021atient continues to be anxious after lowering dose of clonazepam. We will reinitiate Ativan therapy in order to lessen the anxiety felt by the patient. 01/25/2021 will continue the current regimen for now. Patient making very slow incremental progress. Clonazepam dosing lowered to 0.5 mg 3 times daily. 01/24/2021 will increase Wellbutrin XL to 300 mg p.o. every morning 01/23/2021we will continue the current regimen for now, patient making incremental progress 01/22/2021atient appears to have no side effects to Wellbutrin XL. We will continue this dosage for now. Appears to be responding well to 3 times daily clonazepam administration as he is more willing to engage. Patient making very slow progress. 01/21/2021we will hold a.m. doses of Seroquel as patient remains flat. We will continue with Wellbutrin therapy and change to XL formulation starting tomorrow. We will change clonazepam administration to 3 times daily as patient seems to be improving with benzodiazepines. 01/20/2021Wellbutrin 75 mg twice daily added to regimen, patient remains very depressed 01/19/2021we will continue the patient's outpatient regimen for now of Tegret ol, Seroquel, mirtazapine, clonazepam and will add Wellbutrin to the regimen in effort to improve mood, energy, motivation. The patient was admitted to the [facility] ([facility] mental health unit) on every 15 minute checks (behavioral with suicide precautions for safety. The patient will participate in group, recreational, and milieu therapies and will be offered additional individual and family sessions as clinically appropriate. Interval History Identifying Information 55 yo male with hx of OCPD and bipolar dx (primarily depression with brief hypomania) admit on 01/10/21 for inability to care for self. Chief Complaint "I feel that meds are on track". Review of Systems Sleep Information Total Hours of Sleep: 7 Sleep Comments: pt on q-15 minute checks Meal Information Percent Meal Consumed - Breakfast: 100 Percent Meal Consumed - Lunch: 100 Percent Meal Consumed - Dinner: 100 Subjective Subjective Patient was seen & assessed and interval progress reviewed with nursing and social work. patient has been attending groups, interacts but appears rather flat. Staff deny sedation. He has no particular complaint today and is aware of transition plan with family. He feels delayed in responses but denies psychomotor impairment/retardation. He is now more receptive to discussion around slow Ativan taper as unclear if residual symptoms still resolving catatonia or slowing from medication. Physical Exam Psychiatric Orientation: alert and oriented x 3 Apperance: appropriately groomed Eye Contact: + poor eye contact Motor Behavior: + psychomotor retardation Affect: + flat affect Mood: no depressed mood Thought Process: + concrete thought process Thought Content: reality based without delusions Suicidal Thoughts: denies suicidal thoughts Homicidal Thoughts: denies homicidal thoughts Hallucinations: no auditory hallucinations Cognition: attention grossly intact Estimated Intelligence: consistent with education level Insight: + limited insight Judgement: + limited judgement Vital Signs (Past 24 Hours) Last Vital Signs Temp 36.7 C 02/02/21 06:00 Pulse 75 02/02/21 06:27 Resp 16 02/02/21 06:00 BP 138/84 02/02/21 06:27 Pulse Ox 98 01/18/21 15:08 Results & Data ([facility]) Current Inpatient Medications Current Inpatient Medications: Current Inpatient Medications Acetaminophen (Acetaminophen 325 Mg Tab) 650 mg PO Q4H PRN PRN Reason: Headache or Minor Fever Stop: 02/17/21 15:24 Al Hydrox/Mg Hydrox/Simethicone (Aluminum/Magnesium Susp 30 Ml Udc) 30 ml PO Q4H PRN PRN Reason: GI Upset Stop: 02/17/21 15:24 Amlodipine Besylate (Amlodipine Besylate 5 Mg Tab) 5 mg PO QAM [facility] Stop: 02/18/21 08:59 Last Admin: 02/02/21 08:33 Dose: 5 mg Documented by: Bismuth Subsalicylate (Bismuth Subsalicylate Liqd 236 Ml) 15 ml PO PRN PRN PRN Reason: Loose Stool Stop: 02/17/21 15:24 Bupropion HCl (Bupropion Xl 150 Mg Tabcr) 450 mg PO QAM [facility] Stop: 03/01/21 08:59 Last Admin: 02/02/21 08:32 Dose: 450 mg Documented by: Carbamazepine (Carbamazepine 200 Mg Tablet) 200 mg PO BID [facility] Stop: 02/17/21 20:59 Last Admin: 02/02/21 08:33 Dose: 200 mg Documented by: Famotidine (Famotidine 20 Mg Tab) 20 mg PO DAILY [facility] Stop: 02/18/21 08:59 Last Admin: 02/02/21 08:33 Dose: 20 mg Documented by: Loratadine (Loratadine 10 Mg Tab) 10 mg PO DAILY [facility] Stop: 02/18/21 08:59 Last Admin: 02/02/21 08:33 Dose: 10 mg Documented by: Lorazepam (Lorazepam 1 Mg Tab) 2 mg PO BID [facility] Stop: 03/04/21 20:59 Lorazepam (Lorazepam 0.5 Mg Tab) 1.5 mg PO TODAY@ [facility] Stop: 03/04/21 13:59 Magnesium Hydroxide (Magnesium Hydroxide Susp 30 Ml Udc) 30 ml PO DAILY PRN PRN Reason: Constipation Stop: 02/17/21 15:24 Mirtazapine (Mirtazapine Tab 15 Mg Tab) 30 mg PO HS [facility] Stop: 02/17/21 21:59 Last Admin: 02/01/21 20:37 Dose: 30 mg Documented by: Quetiapine Fumarate (Quetiapine Fumarate 200 Mg Tab) 200 mg PO HS [facility] Stop: 03/02/21 21:59 Last Admin: 02/01/21 20:37 Dose: 200 mg Documented by: Sennosides (Senna 8.6 Mg Tab) 17.2 mg PO HS PRN PRN Reason: constipation Stop: 02/17/21 21:59 Sodium Chloride (Sodium Chloride 0.65% Na Soln 45 Ml ([place])) 1 - 2 sprays NA PRN PRN PRN Reason: Nasal Dryness/Congestion Stop: 02/17/21 15:24 Sodium Chloride (Sodium Chloride 0.65% Na Soln 45 Ml ([place])) 1 - 2 sprays NA PRN PRN PRN Reason: Nasal Congestion Stop: 02/17/21 15:37 Tamsulosin HCl (Tamsulosin Hcl 0.4 Mg Cap) 0.4 mg PO HS [facility] Stop: 02/17/21 21:59 Last Admin: 02/01/21 20:37 Dose: 0.4 mg Documented by: Thiamine HCl (Thiamine Hcl 100 Mg Tab) 100 mg PO QAM PRN PRN Reason: Undecided Stop: 02/18/21 08:59 Mental Health & Subst Abuse Tx Psychiatrist Name of Psychiatrist: Pratima Gautam Psychiatrist's Phone Number: [phone] Date of Appointment with Psychiatrist: 03/23/21 Time of Appointment with Psychiatrist: 10am Psychiatric Appointment Comment: [phone] [id number] Therapist Name of Therapist: Pratima Guzman Therapist's Date of Therapist Appointment: 02/16/21 Time of Therapist Appointment: 1:30 p.m Therapy Appointment Comment: [phone] [place] [address] Survey Data Technician Name of Survey Data Technician: [facility] Phone Number for Survey Data Technician: [phone] Post Discharge Appointments Primary Care Physician Name Of Family Doctor: Dr. Myers
[2021-02-02] MEDS ORDERED: LORazepam 0.5 MG TAB PO SCH (14:00)
[2021-02-02] MEDS: MIRTAZAPINE TAB 15 MG TAB PO SCH (20:19)
[2021-02-02] MEDS: TAMSULOSIN HCL 0.4 MG CAP PO SCH (20:20)
[2021-02-02] MEDS: QUEtiapine FUMARATE 200 MG TAB PO SCH (20:20)
[2021-02-03] MEDS: amLODIPine BESYLATE 5 MG TAB PO SCH (08:47)
[2021-02-03] MEDS: buPROPion XL 150 MG TABCR PO SCH (08:48)
[2021-02-03] MEDS: carBAMazepine 200 MG TABLET PO SCH (08:48)
[2021-02-03] MEDS: FAMOTIDINE 20 MG TAB PO SCH (08:48)
[2021-02-03] MEDS: LORATADINE 10 MG TAB PO SCH (08:48)
[2021-02-03] MEDS: LORazepam 1 MG TAB PO SCH (08:48)
--- NOTE | 2021-02-03 10:29 | Psychiatric Progress Note ---
Date of Service February 03, 2021 Impression / Recommendations Impression This is a 55-year-old male with bipolar disorder well-known to [facility] from recent hospitalization who presents depressed with low mood and energy, catatonic features have responded Ativan. (1) Bipolar depression: 02/03/21--less psychomotor retardation today, received 5.5 mg Ativan yesterday and no worsening after decreased dose. Will dose 5 mg Ativan total daily dose today and then 4.5 mg tomorrow. He remains ambivalent about Tegretol level and explained that to minimize polypharmacy would ideally maximize the medication to complete trial or taper as likely subtherapeutic and Tegretol does impact levels of his other medications and potentially make them less effective due to cytochrome p450 effects. He preferred taper and d/c so will receive only 200 mg today. He believes cognititve slowing in the am is at least in part related to Seroquel and would like to continue taper at this time as previously discussed with Dr. Crane. 02/02/2021--trial of Ativan 2 mg, 1.5 mg, 2 mg with consideration for further dose reduction in it or Seroquel. 02/01/2021--patient known to me from previous hospitalization, no Tegretol level on chart. Patient is refusing bloodwork following discussion of therapeutic levels and autoinduction. Risks/benefits/alternatives reviewed re: each of his medication, including but not limited to risks of combined sedation and polypharmacy, particularly short term use of Ativan given controlled substance/habit forming potential. Should be tapered slowly on an outpatient basis as Wellbutrin efficacy peaks to avoid recurrence of catatonia. Engage cousin in plan of care as currently unable to manage his own medications, organize to cook, etc outside of the hospital. 01/31/2021we will continue with the increased Wellbutrin XL. We will also decrease Seroquel to 200 mg p.o. nightly 01/29/2021 will increase Wellbutrin to 450 mg p.o. every morning. 01/27/2021we will increase Ativan doses to 2 mg p.o. 3 times daily. We will continue with the Seroquel at 250 mg nightly and Wellbutrin at 300 mg p.o. every morning. Tegretol dosage remains at 200 mg p.o. twice daily 01/26/2021atient continues to be anxious after lowering dose of clonazepam. We will reinitiate Ativan therapy in order to lessen the anxiety felt by the patient. 01/25/2021 will continue the current regimen for now. Patient making very slow incremental progress. Clonazepam dosing lowered to 0.5 mg 3 times daily. 01/24/2021we will increase Wellbutrin XL to 300 mg p.o. every morning 01/23/2021we will continue the current regimen for now, patient making incremental progress 01/22/2021atient appears to have no side effects to Wellbutrin XL. We will continue this dosage for now. Appears to be responding well to 3 times daily clonazepam administration as he is more willing to engage. Patient making very slow progress. 01/21/2021 will hold a.m. doses of Seroquel as patient remains flat. We will continue with Wellbutrin therapy and change to XL formulation starting tomorrow. We will change clonazepam administration to 3 times daily as patient seems to be improving with benzodiazepines. 01/20/2021Wellbutrin 75 mg twice daily added to regimen, patient remains very depressed 01/19/2021we will continue the patient's outpatient regimen for now of Tegretol, Seroquel, mirtazapine, clonazepam and will add Wellbutrin to the regimen in effort to improve mood, energy, motivation. The patient was admitted to the [facility] ([facility] mental health unit) on every 15 minute checks (behavioral with suicide precautions for safety. The patient will participate in group, recreational, and milieu therapies and will be offered additional individual and family sessions as clinically appropriate. Interval History Identifying Information 55 yo male with hx of OCPD and bipolar dx (primarily depression with brief hypomania) admit on 01/10/21 for inability to care for self. Chief Complaint "I worry about money, hard for me to put into words". Review of Systems Sleep Information Total Hours of Sleep: 7.5 Sleep Comments: pt on q-15 minute checks Meal Information Percent Meal Consumed - Breakfast: 100 Percent Meal Consumed - Lunch: 100 Percent Meal Consumed - Dinner: 100 Subjective Subjective Patient was seen & assessed and interval progress reviewed with treatment team. Appears flat in the am but participates with minimal prompting, appears brighter in interactions with peers later in day. Still less verbal when 1-on-1 and appears internally preoccupied but denies obsessions/martino, "just there". Physical Exam Psychiatric Orientation: alert and oriented x 3 Apperance: appropriately groomed Eye Contact: + poor eye contact Affect: + constricted affect Mood: + dysphoric mood; no depressed mood Thought Process: goal directed thought process and + concrete thought process Thought Content: reality based without delusions and + self deprecation Suicidal Thoughts: denies suicidal thoughts Homicidal Thoughts: denies homicidal thoughts Hallucinations: no auditory hallucinations Cognition: attention grossly intact Estimated Intelligence: consistent with education level Insight: + limited insight Judgement: + limited judgement Vital Signs (Past 24 Hours) Last Vital Signs Temp 36.7 C 02/03/21 06:00 Pulse 81 02/03/21 06:36 Resp 16 02/03/21 06:00 BP 119/82 02/03/21 06:36 Pulse Ox 98 01/18/21 15:08 Results & Data ([facility]) Current Inpatient Medications Current Inpatient Medications: Current Inpatient Medications Acetaminophen (Acetaminophen 325 Mg Tab) 650 mg PO Q4H PRN PRN Reason: Headache or Minor Fever Stop: 02/17/21 15:24 Al Hydrox/Mg Hydrox/Simethicone (Aluminum/Magnesium Susp 30 Ml Udc) 30 ml PO Q4H PRN PRN Reason: GI Upset Stop: 02/17/21 15:24 Amlodipine Besylate (Amlodipine Besylate 5 Mg Tab) 5 mg PO QAM [facility] Stop: 02/18/21 08:59 Last Admin: 02/03/21 08:47 Dose: 5 mg Documented by: Bismuth Subsalicylate (Bismuth Subsalicylate Liqd 236 Ml) 15 ml PO PRN PRN PRN Reason: Loose Stool Stop: 02/17/21 15:24 Bupropion HCl (Bupropion Xl 150 Mg Tabcr) 450 mg PO QAM [facility] Stop: 03/01/21 08:59 Last Admin: 02/03/21 08:48 Dose: 450 mg Documented by: Famotidine (Famotidine 20 Mg Tab) 20 mg PO DAILY [facility] Stop: 02/18/21 08:59 Last Admin: 02/03/21 08:48 Dose: 20 mg Documented by: Loratadine (Loratadine 10 Mg Tab) 10 mg PO DAILY [facility] Stop: 02/18/21 08:59 Last Admin: 02/03/21 08:48 Dose: 10 mg Documented by: Lorazepam (Lorazepam 0.5 Mg Tab) 1.5 mg PO TID [facility] Stop: 03/05/21 13:59 Magnesium Hydroxide (Magnesium Hydroxide Susp 30 Ml Udc) 30 ml PO DAILY PRN PRN Reason: Constipation Stop: 02/17/21 15:24 Mirtazapine (Mirtazapine Tab 15 Mg Tab) 30 mg PO HS [facility] Stop: 02/17/21 21:59 Last Admin: 02/02/21 20:19 Dose: 30 mg Documented by: Quetiapine Fumarate (Quetiapine Fumarate 100 Mg Tablet) 150 mg PO HS [facility] Stop: 03/05/21 21:59 Sennosides (Senna 8.6 Mg Tab) 17.2 mg PO HS PRN PRN Reason: constipation Stop: 02/17/21 21:59 Sodium Chloride (Sodium Chloride 0.65% Na Soln 45 Ml ([place])) 1 - 2 sprays NA PRN PRN PRN Reason: Nasal Dryness/Congestion Stop: 02/17/21 15:24 Sodium Chloride (Sodium Chloride 0.65% Na Soln 45 Ml ([place])) 1 - 2 sprays NA PRN PRN PRN Reason: Nasal Congestion Stop: 02/17/21 15:37 Tamsulosin HCl (Tamsulosin Hcl 0.4 Mg Cap) 0.4 mg PO HS [facility] Stop: 02/17/21 21:59 Last Admin: 02/02/21 20:20 Dose: 0.4 mg Documented by: Thiamine HCl (Thiamine Hcl 100 Mg Tab) 100 mg PO QAM PRN PRN Reason: Undecided Stop: 02/18/21 08:59 Mental Health & Subst Abuse Tx Psychiatrist Name of Psychiatrist: Pratima Gautam Psychiatrist's Phone Number: [phone] Date of Appointment with Psychiatrist: 03/23/21 Time of Appointment with Psychiatrist: 10am Psychiatric Appointment Comment: [phone] [id number] Therapist Name of Therapist: Pratima Guzman Therapist's Date of Therapist Appointment: 02/16/21 Time of Therapist Appointment: 1:30 p.m Therapy Appointment Comment: [id number] [place] [address] [employer] Trouble Shooter Name of Die Trouble Shooter: [facility] Phone Number for Die Trouble Shooter: [phone] Post Discharge Appointments Primary Care Physician Name Of Family Doctor: Dr. Myers
[2021-02-03] MEDS: LORazepam 0.5 MG TAB PO SCH ×2 (14:01→22:17)
[2021-02-03] MEDS: MIRTAZAPINE TAB 15 MG TAB PO SCH (22:17)
[2021-02-03] MEDS: TAMSULOSIN HCL 0.4 MG CAP PO SCH (22:17)
[2021-02-03] MEDS: QUEtiapine FUMARATE 100 MG TABLET PO SCH (22:17)
[2021-02-04] MEDS: FAMOTIDINE 20 MG TAB PO SCH (08:11)
[2021-02-04] MEDS: LORazepam 0.5 MG TAB PO SCH ×3 (08:11→20:47)
[2021-02-04] MEDS: LORATADINE 10 MG TAB PO SCH (08:11)
[2021-02-04] MEDS: buPROPion XL 150 MG TABCR PO SCH (08:11)
[2021-02-04] MEDS: amLODIPine BESYLATE 5 MG TAB PO SCH (08:11)
--- NOTE | 2021-02-04 11:54 | Psychiatric Progress Note ---
Date of Service February 04, 2021 Impression / Recommendations Impression 55 yo male with recurrent depression, hopelessness, multiple med changes to address low mood and catatonic features. (1) Bipolar depression: 02/04/21--appears patient is becoming more anxious/rigid in thought paterns in anticipation of transition to cousins, repeat family meeting to be scheduled. His participation varies shift to shift so will continue to monitor on current doses of medication, halt any further Ativan taper until reassessed. 02/03/21--less psychomotor retardation today, received 5.5 mg Ativan yesterday and no worsening after decreased dose. Will dose 5 mg Ativan total daily dose today and then 4.5 mg tomorrow. He remains ambivalent about Tegretol level and explained that to minimize polypharmacy would ideally maximize the medication to complete trial or taper as likely subtherapeutic and Tegretol does impact levels of his other medications and potentially make them less effective due to cytochrome p450 effects. He preferred taper and d/c so will receive only 200 mg today. He believes cognititve slowing in the am is at least in part related to Seroquel and would like to continue taper at this time as previously discussed with Dr. Crane. 02/02/2021--trial of Ativan 2 mg, 1.5 mg, 2 mg with consideration for further dose reduction in it or Seroquel. 02/01/2021--patient known to me from previous hospitalization, no Tegretol level on chart. Patient is refusing bloodwork following discussion of therapeutic levels and autoinduction. Risks/benefits/alternatives reviewed re: each of his medication, including but not limited to risks of combined sedation and polypharmacy, particularly short term use of Ativan given controlled substance/habit forming potential. Should be tapered slowly on an outpatient basis as Wellbutrin efficacy peaks to avoid recurrence of catatonia. Engage cousin in plan of care as currently unable to manage his own medications, organize to cook, etc outside of the hospital. 01/31/2021we will continue with the increased Wellbutrin XL. We will also decrease Seroquel to 200 mg p.o. nightly 01/29/2021we will increase Wellbutrin to 450 mg p.o. every morning. 01/27/2021we will increase Ativan doses to 2 mg p.o. 3 times daily. We will continue with the Seroquel at 250 mg nightly and Wellbutrin at 300 mg p.o. every morning. Tegretol dosage remains at 200 mg p.o. twice daily 01/26/2021atient continues to be anxious after lowering dose of clonazepam. We will reinitiate Ativan therapy in order to lessen the anxiety felt by the patient. 01/25/2021 will continue the current regimen for now. Patient making very slow incremental progress. Clonazepam dosing lowered to 0.5 mg 3 times daily. 01/24/2021 will increase Wellbutrin XL to 300 mg p.o. every morning 01/23/2021 will continue the current regimen for now, patient making incremental progress 01/22/2021atient appears to have no side effects to Wellbutrin XL. We will continue this dosage for now. Appears to be responding well to 3 times daily clonazepam administration as he is more willing to engage. Patient making very slow progress. 01/21/2021 will hold a.m. doses of Seroquel as patient remains flat. We will continue with Wellbutrin therapy and change to XL formulation starting tomorrow. We will change clonazepam administration to 3 times daily as patient seems to be improving with benzodiazepines. 01/20/2021Wellbutrin 75 mg twice daily added to regimen, patient remains very depressed 01/19/2021we will continue the patient's outpatient regimen for now of Tegretol, Seroquel, mirtazapine, clonazepam and will add Wellbutrin to the regimen in effort to improve mood, energy, motivation. The patient was admitted to the [facility] ([facility] unit) on every 15 minute checks (behavioral with suicide precautions for safety. The patient will participate in group, recreational, and milieu therapies and will be offered additional individual and family sessions as clinically appropriate. Interval History Identifying Information 55 yo male with hx of bipolar and OCPD, extended hospitalization for depre ssion/hopelessness and inability to care for self. Chief Complaint "I'm confused". Review of Systems Sleep Information Total Hours of Sleep: 6.75 Sleep Comments: pt on q-15 minute checks Meal Information Percent Meal Consumed - Breakfast: 100 Percent Meal Consumed - Lunch: 100 Percent Meal Consumed - Dinner: 100 Nutrition Comment: per meal log Subjective Subjective Patient was seen & assessed and interval progress reviewed with nursing and social work. No reported issues on evenings up to point he was initially resistant to hs meds. He reported excessive guilt and feeling of arm heaviness to staff. This am is staying in his room more, partially as lower census. Preoccupied re: discharge. Resitant to verbalizing rather than blocked as quicker to respond. Reports he didn't sleep which is not consistent with staff report. He continues to struggle to complete safety plan. Physical Exam Psychiatric Orientation: alert and oriented x 3 Apperance: appropriately dressed and appropriately groomed Eye Contact: + poor eye contact Motor Behavior: no abnormal motor movements non spontaneous Affect: + flat affect mood is "confused" Thought Process: + perseveration Thought Content: reality based without delusions Suicidal Thoughts: denies suicidal thoughts Homicidal Thoughts: denies homicidal thoughts Hallucinations: no auditory hallucinations and no visual hallucinations Cognition: attention grossly intact and language grossly intact Estimated Intelligence: consistent with education level Insight: + limited insight Judgement: + limited judgement Vital Signs (Past 24 Hours) Last Vital Signs Temp 36.5 C 02/04/21 06:00 Pulse 89 02/04/21 06:30 Resp 16 02/04/21 06:00 BP 126/83 02/04/21 06:30 Pulse Ox 98 01/18/21 15:08 Results & Data ([facility]) Current Inpatient Medications Current Inpatient Medications: Current Inpatient Medications Acetaminophen (Acetaminophen 325 Mg Tab) 650 mg PO Q4H PRN PRN Reason: Headache or Minor Fever Stop: 02/17/21 15:24 Al Hydrox/Mg Hydrox/Simethicone (Aluminum/Magnesium Susp 30 Ml Udc) 30 ml PO Q4H PRN PRN Reason: GI Upset Stop: 02/17/21 15:24 Amlodipine Besylate (Amlodipine Besylate 5 Mg Tab) 5 mg PO QAM [facility] Stop: 02/18/21 08:59 Last Admin: 02/04/21 08:11 Dose: 5 mg Documented by: Bismuth Subsalicylate (Bismuth Subsalicylate Liqd 236 Ml) 15 ml PO PRN PRN PRN Reason: Loose Stool Stop: 02/17/21 15:24 Bupropion HCl (Bupropion Xl 150 Mg Tabcr) 450 mg PO QAM [facility] Stop: 03/01/21 08:59 Last Admin: 02/04/21 08:11 Dose: 450 mg Documented by: Famotidine (Famotidine 20 Mg Tab) 20 mg PO DAILY [facility] Stop: 02/18/21 08:59 Last Admin: 02/04/21 08:11 Dose: 20 mg Documented by: Loratadine (Loratadine 10 Mg Tab) 10 mg PO DAILY [facility] Stop: 02/18/21 08:59 Last Admin: 02/04/21 08:11 Dose: 10 mg Documented by: Lorazepam (Lorazepam 0.5 Mg Tab) 1.5 mg PO TID [facility] Stop: 03/05/21 13:59 Last Admin: 02/04/21 08:11 Dose: 1.5 mg Documented by: Magnesium Hydroxide (Magnesium Hydroxide Susp 30 Ml Udc) 30 ml PO DAILY PRN PRN Reason: Constipation Stop: 02/17/21 15:24 Mirtazapine (Mirtazapine Tab 15 Mg Tab) 30 mg PO HS [facility] Stop: 02/17/21 21:59 Last Admin: 02/03/21 22:17 Dose: 30 mg Documented by: Quetiapine Fumarate (Quetiapine Fumarate 100 Mg Tablet) 150 mg PO HS [facility] Stop: 03/05/21 21:59 Last Admin: 02/03/21 22:17 Dose: 150 mg Documented by: Sennosides (Senna 8.6 Mg Tab) 17.2 mg PO HS PRN PRN Reason: constipation Stop: 02/17/21 21:59 Sodium Chloride (Sodium Chloride 0.65% Na Soln 45 Ml ([place])) 1 - 2 sprays NA PRN PRN PRN Reason: Nasal Dryness/Congestion Stop: 02/17/21 15:24 Sodium Chloride (Sodium Chloride 0.65% Na Soln 45 Ml ([place])) 1 - 2 sprays NA PRN PRN PRN Reason: Nasal Congestion Stop: 02/17/21 15:37 Tamsulosin HCl (Tamsulosin Hcl 0.4 Mg Cap) 0.4 mg PO HS [facility] Stop: 02/17/21 21:59 Last Admin: 02/03/21 22:17 Dose: 0.4 mg Documented by: Thiamine HCl (Thiamine Hcl 100 Mg Tab) 100 mg PO QAM PRN PRN Reason: Undecided Stop: 02/18/21 08:59 Mental Health & Subst Abuse Tx Psychiatrist Name of Psychiatrist: Pratima Gautam Psychiatrist's Date of Appointment with Psychiatrist: 02/09/21 Time of Appointment with Psychiatrist: 08:20 a.m Psychiatric Appointment Comment: telehealth Therapist Name of Therapist: Pratima Guzman Therapist's Date of Therapist Appointment: 02/16/21 Time of Therapist Appointment: 1:30 p.m Therapy Appointment Comment: Telehealth Engineering Document Control Clerk Name of Engineering Document Control Clerk: [facility] Phone Number for Engineering Document Control Clerk: [phone] Date of Appointment with Engineering Document Control Clerk: 02/09/21 Time of Appointment with Engineering Document Control Clerk: 12:30 p.m. Case Management Appointment Comment: Will call you via telephone Post Discharge Appointments Primary Care Physician Name Of Family Doctor: CARITO Myers Primary Care Provider Appointment Comment: [address], [place] [address] Specialist Name of Specialist: [facility] Phone Number for Specialist: Specialty Appointment Comment: [address] [place] [address] , [place] [address] Contact Information Discharge
[2021-02-04] MEDS: MIRTAZAPINE TAB 15 MG TAB PO SCH (20:47)
[2021-02-04] MEDS: QUEtiapine FUMARATE 100 MG TABLET PO SCH (20:48)
[2021-02-04] MEDS: TAMSULOSIN HCL 0.4 MG CAP PO SCH (20:49)
[2021-02-05] MEDS: FAMOTIDINE 20 MG TAB PO SCH (09:06)
[2021-02-05] MEDS: buPROPion XL 150 MG TABCR PO SCH (09:06)
[2021-02-05] MEDS: amLODIPine BESYLATE 5 MG TAB PO SCH (09:06)
[2021-02-05] MEDS: LORATADINE 10 MG TAB PO SCH (09:06)
[2021-02-05] MEDS: LORazepam 0.5 MG TAB PO SCH ×3 (09:07→21:05)
--- NOTE | 2021-02-05 15:28 | Psychiatric Progress Note ---
Date of Service February 05, 2021 Impression / Recommendations Impression 55 yo male with recurrent depression, hopelessness, multiple med changes to address low mood and catatonic features. (1) Bipolar depression: continue current meds and treatment plan. still awaiting confirmation of urology f/u. Interval History Identifying Information 55 yo male with hx of bipolar and OCPD, extended hospitalization for depression/hopelessness and inability to care for self. Chief Complaint "I've made progress". Review of Systems Sleep Information Total Hours of Sleep: 5.25 Sleep Comments: pt on q-15 minute checks Meal Information Percent Meal Consumed - Breakfast: 100 Percent Meal Consumed - Lunch: 100 Percent Meal Consumed - Dinner: 100 Nutrition Comment: per meal log Subjective Subjective Patient was seen & assessed and interval progress reviewed with treatment team. I met with patient individually and participated in his final family meeting to review medication changes. I left a message for Dr. Gautam following the meeting. Discussion included his progress, ongoing depressive symptoms, need for structured activities, fact that he is currently bored on the unit. Reviewed typical continued stay criteria and average length of hospitalization. Patient wasn't particularly verbal with family but did smile and state "let's do lunch". Reviewed that he will continue to exhibit rigid and obsessive thinking regardless of dose of antidepressant due to OCPD but he has not reported suicidal thoughts for some time. Family reported disposing of all of his medications, included "several" bottles of Klonopin upon admission. Reviewed sending scripts near cousin's home in [place] and nursing staff confirmed insurance did cover. Discussed dosing ranges for Ativan and that it will be tapered on an outpatient basis by Dr. Gautam (started here). Reviewed another 4-6 weeks to complete trial of this dose of Wellbutrin. Physical Exam Psychiatric Orientation: alert and oriented x 3 Apperance: appropriately dressed and appropriately groomed Eye Contact: + poor eye contact Motor Behavior: no abnormal motor movements non sponatneous but no delay either Affect: + blunted affect mood is "improved" Thought Process: + perseveration and + concrete thought process Thought Content: reality based without delusions Suicidal Thoughts: denies suicidal thoughts Homicidal Thoughts: denies homicidal thoughts Hallucinations: no auditory hallucinations and no visual hallucinations Cognition: attention grossly intact and language grossly intact Estimated Intelligence: consistent with education level Insight: + limited insight Judgement: + limited judgement Vital Signs (Past 24 Hours) Last Vital Signs Temp 36.3 C L 02/05/21 06:00 Pulse 72 02/05/21 06:30 Resp 16 02/05/21 06:00 BP 127/87 02/05/21 06:30 Pulse Ox 98 02/05/21 06:00 Results & Data ([facility]) Current Inpatient Medications Current Inpatient Medications: Current Inpatient Medications Acetaminophen (Acetaminophen 325 Mg Tab) 650 mg PO Q4H PRN PRN Reason: Headache or Minor Fever Stop: 02/17/21 15:24 Al Hydrox/Mg Hydrox/Simethicone (Aluminum/Magnesium Susp 30 Ml Udc) 30 ml PO Q4H PRN PRN Reason: GI Upset Stop: 02/17/21 15:24 Amlodipine Besylate (Amlodipine Besylate 5 Mg Tab) 5 mg PO QAM [facility] Stop: 02/18/21 08:59 Last Admin: 02/05/21 09:06 Dose: 5 mg Documented by: Bismuth Subsalicylate (Bismuth Subsalicylate Liqd 236 Ml) 15 ml PO PRN PRN PRN Reason: Loose Stool Stop: 02/17/21 15:24 Bupropion HCl (Bupropion Xl 150 Mg Tabcr) 450 mg PO QAM [facility] Stop: 03/01/21 08:59 Last Admin: 02/05/21 09:06 Dose: 450 mg Documented by: Famotidine (Famotidine 20 Mg Tab) 20 mg PO DAILY JACLYN Stop: 02/18/21 08:59 Last Admin: 02/05/21 09:06 Dose: 20 mg Documented by: Loratadine (Loratadine 10 Mg Tab) 10 mg PO DAILY JACLYN Stop: 02/18/21 08:59 Last Admin: 02/05/21 09:06 Dose: 10 mg Documented by: Lorazepam (Lorazepam 0.5 Mg Tab) 1.5 mg PO TID JACLYN Stop: 03/05/21 13:59 Last Admin: 02/05/21 14:45 Dose: 1.5 mg Documented by: Magnesium Hydroxide (Magnesium Hydroxide Susp 30 Ml Udc) 30 ml PO DAILY PRN PRN Reason: Constipation Stop: 02/17/21 15:24 Mirtazapine (Mirtazapine Tab 15 Mg Tab) 30 mg PO HS [facility] Stop: 02/17/21 21:59 Last Admin: 02/04/21 20:47 Dose: 30 mg Documented by: Quetiapine Fumarate (Quetiapine Fumarate 100 Mg Tablet) 150 mg PO HS JACLYN Stop: 03/05/21 21:59 Last Admin: 02/04/21 20:48 Dose: 150 mg Documented by: Sennosides (Senna 8.6 Mg Tab) 17.2 mg PO HS PRN PRN Reason: constipation Stop: 02/17/21 21:59 Sodium Chloride (Sodium Chloride 0.65% Na Soln 45 Ml ([place])) 1 - 2 sprays NA PRN PRN PRN Reason: Nasal Dryness/Congestion Stop: 02/17/21 15:24 Sodium Chloride (Sodium Chloride 0.65% Na Soln 45 Ml ([place]ace)) 1 - 2 sprays NA PRN PRN PRN Reason: Nasal Congestion Stop: 02/17/21 15:37 Tamsulosin HCl (Tamsulosin Hcl 0.4 Mg Cap) 0.4 mg PO HS JACLYN Stop: 02/17/21 21:59 Last Admin: 02/04/21 20:49 Dose: 0.4 mg Documented by: Thiamine HCl (Thiamine Hcl 100 Mg Tab) 100 mg PO QAM PRN PRN Reason: Undecided Stop: 02/18/21 08:59 Mental Health & Subst Abuse Tx Psychiatrist Name of Psychiatrist: Pratima Gautam Psychiatrist's Date of Appointment with Psychiatrist: 02/09/21 Time of Appointment with Psychiatrist: 08:20 a.m Psychiatric Appointment Comment: telehealth Therapist Name of Therapist: Pratima Guzman Therapist's Date of Therapist Appointment: 02/16/21 Time of Therapist Appointment: 1:30 p.m Therapy Appointment Comment: Telehealth Radiological Technician Name of Radiological Technician: [facility] Phone Number for Radiological Technician: [phone] Date of Appointment with Radiological Technician: 02/09/21 Time of Appointment with Radiological Technician: 12:30 p.m. Case Management Appointment Comment: Will call you via telephone Post Discharge Appointments Primary Care Physician Name Of Family Doctor: CARITO Myers Primary Care Provider Appointment Comment: [address], [place] [address] Specialist Name of Specialist: [facility] Phone Number for Specialist: Specialty Appointment Comment: [address] , [place] [address] Contact Information Discharge Discharge Address: [place] [address]
[2021-02-05] MEDS: QUEtiapine FUMARATE 100 MG TABLET PO SCH (21:04)
[2021-02-05] MEDS: TAMSULOSIN HCL 0.4 MG CAP PO SCH (21:04)
[2021-02-05] MEDS: MIRTAZAPINE TAB 15 MG TAB PO SCH (21:05)
[2021-02-06] MEDS: buPROPion XL 150 MG TABCR PO SCH (08:39)
[2021-02-06] MEDS: amLODIPine BESYLATE 5 MG TAB PO SCH (08:39)
[2021-02-06] MEDS: LORATADINE 10 MG TAB PO SCH (08:40)
[2021-02-06] MEDS: LORazepam 0.5 MG TAB PO SCH ×2 (08:40→12:25)
[2021-02-06] MEDS: FAMOTIDINE 20 MG TAB PO SCH (08:40)
--- NOTE | 2021-02-06 16:49 | Discharge Summary ---
Date of Service February 06, 2021 History of Present Illness Patient is a 55-year-old male with a well-known history of bipolar disorder who presents to the psychiatric unit following a stay on medical floors. Patient was last discharged from [facility] [address] back in October following a suicidal gesture in which patient had taken Adderall and went [place] with the intent of having a heart attack and dying. Patient was stabilized on Abilify and discharged to his brother's care. Patient had been compliant with outpatient treatment and his medications were adjusted by his outpatient provider. Patient then presented approximately a week ago with some medical complaints as well as severe depression. Upon medical evaluation patient was found to have a renal cell carcinoma which was successfully removed during operation. Following the operation patient's mood did seem to improve although quickly returned to a depressed state where it currently is at. Upon evaluation this afternoon, patient is very hesitant to speak in difficult to converse with. He offers a lot of one-word or simple phrase answers such as "I do not know" to the majority of questions. 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 Patient is in agreement for medication management as well as therapy services here on the inpatient unit and following his discharge. Patient acknowledges feeling suicidal but states he does not have the energy to "do anything like that." He does acknowledge anxious feelings as well as feelings of hopelessness. Patient also feels that he is lacking in motivation. He is denying any auditory or visual hallucinations at this time. Physical Exam Psychiatric Orientation: alert and oriented x 3 Apperance: appropriately dressed and appropriately groomed Eye Contact: + poor eye contact Motor Behavior: no abnormal motor movements and + psychomotor retardation Affect: + depressed affect, + flat affect, + blunted affect, + constricted affect and mood congruent with affect Mood: + dysphoric mood; no depressed mood Thought Process: goal directed thought process, + thought blocking, + perseveration and + concrete thought process Thought Content: + cognitive distortions, reality based without delusions, + hopelessness, + worthlessness, + guilt and + self deprecation Suicidal Thoughts: denies suicidal thoughts Homicidal Thoughts: denies homicidal thoughts Hallucinations: no auditory hallucinations and no visual hallucinations Cognition: attention grossly intact and language grossly intact Estimated Intelligence: consistent with education level Insight: + limited insight and + fair insight Judgement: + limited judgement and + poor judgement Vital Signs (Past 24 Hours) Last Vital Signs Temp 36.7 C 02/06/21 11:54 Pulse 89 02/06/21 11:54 Resp 14 02/06/21 11:54 BP 127/87 02/06/21 11:54 Pulse Ox 98 02/06/21 11:54 Principal Diagnosis Bipolar depression Psychiatric Data See daily stay summary. In short, safety was maintained, and the patient was cooperative with care. Medication changes included discontinuation of Tegretol, discontinuation of clonazepam, initiation of Ativan, initiation of Wellbutrin and up titration to max dosage as well as down titration and adjustment of Seroquel dosage and they tolerated this well. A family session was held and safety plan was completed prior to discharge. Day of Discharge Assessment Initially patient was reluctant on day of discharge. He continued to show some OCDP traits and became worried about his bills in addition to his living situat ion. His son, Александр, came by and a brief family meeting was held to discuss the idea of continued inpatient stay versus discharge today. Along with encouragement from Александр, the patient was able to voice a readiness for discharge. They note improvement in mood and deny thoughts to harm self or others. He denied hopelessness, but did report some appropriate anxiety about his upcoming change in environment. Thoughts remain organized and they are improved from admission. There is no evidence of psychosis. They agree to take medications as prescribed and keep follow-up appointments. They are stable for discharge to outpatient level of care. Transition of Care Transition Of Care Record: was reviewed with the patient Advance Directives Advance Directives Information Provided: Yes Advance Directives: No Mental Health Advance Directive: No Advance Directives on File: No Living Will: No Power of Human Resources Executive Assistant: No Advance Directives Reason:: Declines as Mental Health Visit. Risk Factors Assessment Male: Yes : Yes Do You Have Access To A Gun?: No Mental Health Diagnoses: Yes Substance Use Disorders: No Hopelessness: No Protective Factors Assessment Stable Relationships: Yes Supportive Family: Yes Good Rapport with Provider: Yes Hospital Course (1) Bipolar depression: 55 yo male with recurrent depression, hopelessness, multiple med changes to address low mood and catatonic features. (1) Bipolar depression: 02/04/21--appears patient is becoming more anxious/rigid in thought paterns in anticipation of transition to cousins, repeat family meeting to be scheduled. His participation varies shift to shift so will continue to monitor on current doses of medication, halt any further Ativan taper until reassessed. 02/03/21--less psychomotor retardation today, received 5.5 mg Ativan yesterday and no worsening after decreased dose. Will dose 5 mg Ativan total daily dose today and then 4.5 mg tomorrow. He remains ambivalent about Tegretol level and explained that to minimize polypharmacy would ideally maximize the medication to complete trial or taper as likely subtherapeutic and Tegretol does impact levels of his other medications and potentially make them less effective due to cytochrome p450 effects. He preferred taper and d/c so will receive only 200 mg today. He believes cognititve slowing in the am is at least in part related to Seroquel and would like to continue taper at this time as previously discussed with Dr. Crane. 02/02/2021--trial of Ativan 2 mg, 1.5 mg, 2 mg with consideration for further dose reduction in it or Seroquel. 02/01/2021--patient known to me from previous hospitalization, no Tegretol level on chart. Patient is refusing bloodwork following discussion of therapeutic levels and autoinduction. Risks/benefits/alternatives reviewed re: each of his medication, including but not limited to risks of combined sedation and polypharmacy, particularly short term use of Ativan given controlled substance/habit forming potential. Should be tapered slowly on an outpatient basis as Wellbutrin efficacy peaks to avoid recurrence of catatonia. Engage cousin in plan of care as currently unable to manage his own medications, organize to cook, etc outside of the hospital. 01/31/2021we will continue with the increased Wellbutrin XL. We will also decrease Seroquel to 200 mg p.o. nightly 01/29/2021we will increase Wellbutrin to 450 mg p.o. every morning. 01/27/2021we will increase Ativan doses to 2 mg p.o. 3 times daily. We will continue with the Seroquel at 250 mg nightly and Wellbutrin at 300 mg p.o. every morning. Tegretol dosage remains at 200 mg p.o. twice daily 01/26/2021atient continues to be anxious after lowering dose of clonazepam. We will reinitiate Ativan therapy in order to lessen the anxiety felt by the pat ient. 01/25/2021 will continue the current regimen for now. Patient making very slow incremental progress. Clonazepam dosing lowered to 0.5 mg 3 times daily. 01/24/2021we will increase Wellbutrin XL to 300 mg p.o. every morning 01/23/2021 will continue the current regimen for now, patient making incremental progress 01/22/2021atient appears to have no side effects to Wellbutrin XL. We will continue this dosage for now. Appears to be responding well to 3 times daily clonazepam administration as he is more willing to engage. Patient making very slow progress. 01/21/2021 will hold a.m. doses of Seroquel as patient remains flat. We will continue with Wellbutrin therapy and change to XL formulation starting tomorrow. We will change clonazepam administration to 3 times daily as patient seems to be improving with benzodiazepines. 01/20/2021Wellbutrin 75 mg twice daily added to regimen, patient remains very depressed 01/19/2021we will continue the patient's outpatient regimen for now of Tegretol, Seroquel, mirtazapine, clonazepam and will add Wellbutrin to the regimen in effort to improve mood, energy, motivation. The patient was admitted to the [facility] ([facility]) on every 15 minute checks (behavioral with suicide precautions for safety. The patient will participate in group, recreational, and milieu therapies and will be offered additional individual and family sessions as clinically appropriate. Mental Health & Subst Abuse Tx Psychiatrist Name of Psychiatrist: Pratima Gautam Psychiatrist's Date of Appointment with Psychiatrist: 02/09/21 Time of Appointment with Psychiatrist: 08:20 a.m Psychiatric Appointment Comment: telehealth Psychiatrist Release of Information: Obtained, Reviewed and Signed Therapist Name of Therapist: Pratima Guzman Therapist's Date of Therapist Appointment: 02/16/21 Time of Therapist Appointment: 1:30 p.m Therapy Appointment Comment: Telehealth Therapist Release of Information: Obtained, Reviewed and Signed Field Nurse Case Manager Name of Field Nurse Case Manager: [facility] Phone Number for Field Nurse Case Manager: [phone] Date of Appointment with Field Nurse Case Manager: 02/09/21 Time of Appointment with Field Nurse Case Manager: 12:30 p.m. Case Management Appointment Comment: Will call you via telephone Field Nurse Case Manager Release of Information: Obtained, Reviewed and Signed Post Discharge Appointments Primary Care Physician Name Of Family Doctor: CARITO Myers Primary Care Time of Appointment with PCP: Follow up as needed Provider Appointment Comment: [facility] [address], [place] [address] Primary Care Release of Information: Obtained, Reviewed and Signed Specialist Name of Specialist: [facility]O [facility] Phone Number for Specialist: Time of Appointment with Specialist: Will follow up with you directly to schedule Specialty Appointment Comment: [address] [place] [address] , [place] [address] Specialist Release of Information: Obtained, Reviewed and Signed Contact Information Discharge Discharge [address]: [address] [place] [address] Discharge Plan Discharge Items Patient Disposition: Home - Self-Care Reason For Visit: PSYCHOSIS NOS Discharge Diagnosis: Bipolar disorder Activity: Resume your previous activity Non-emergency contact: Primary Care Provider, Psychiatrist and Therapist Call non-emergency contact if: you have any medication questions and your symptoms worsen Follow-up/Referrals: Dayron Myers MD [Primary Care Provider] - Diet: Regular Addtl Attending Provider Instructions: SPECIAL CARE INSTRUCTIONS: 1. Follow through with your scheduled aftercare appointments. If unable to keep an appointment, please call to reschedule. 2. Take your medication only as prescribed. Medication should not be changed or stopped without the approval of your doctor. In the event of worsening symptoms or concerns about side effects, contact your doctor immediately. 3. Utilize new healthy coping skills, anger management skills, and stress management skills learned during your hospitalization. Journal feelings and process them with a support person. Identify stressors or situations that may result in relapse, deterioration or inappropriate behaviors and develop a plan to deal with those issues. 4. If your coping skills are ineffective and you are in crisis, contact your outpatient providers for direction. If unable to reach your providers, please call the [facility] CRISIS LINE AT , go to the [facility] walk-in center at [address], [address], [place], or go to the closest Emergency Room. 5. Avoid alcohol and un-prescribed drugs. 6. You have been provided with the Mental Health Advance Directives Pamphlet for your review. 7. Your condition is stable for discharge to outpatient level of care, but recovery is an ongoing process. Ifthoughts to harm yourself or others return, follow the safety plan developed during your stay. Planning for a safe return home includes securing weapons. Our treatment team recommends weaponsbe removed from the home until your outpatient provider reassesses your progress. In rare cases where the items themselvescannot be removed, guns and ammunitionshould be secured separatelyand keys stored by a reliable personoutside of the home. If you were admitted on an involuntary commitment, the police or other legal authorities may be involved in this process. AFTERCARE APPOINTMENTS: * Please call your insurance company prior to your scheduled appointment to confirm your aftercare providers are covered. Take your insurance information to your appointments. WHO TO CALL AND WHEN: Medical Emergencies: For questions or emergencies related to your hospital stay, please contact the Inpatient Behavioral Health Unit at [phone]. A outreach specialist is on-call 26/12 for the Behavioral Health Unit for emergencies At any time you feel your situation is an emergency, you may also call 911 immediately. Pending Studies at Discharge: No Stand-Alone Forms: My [facility], Smoking Cessation Medications and DC Order Prescriptions: New quetiapine 100 mg Tablet 100 mg PO HS 30 Days Qty: 30 RF: 0 quetiapine [Seroquel] 50 mg tablet 50 mg PO HS 30 Days Qty: 30 RF: 0 bupropion HCl 150 mg Tablet Extended Release 24 Hr 450 mg PO QAM Qty: 90 RF: 0 lorazepam 1 mg tablet 1 mg PO TID 14 Days Qty: 42 RF: 0 lorazepam 0.5 mg tablet 0.5 mg PO TID 14 Days Qty: 42 RF: 0 Continued thiamine HCl (vitamin B1) [Vitamin B-1] 100 mg Tablet 100 mg PO QAM 30 Days Qty: 30 RF: 0 amlodipine [Norvasc] 5 mg Tablet 5 mg PO QAM 30 Days Qty: 30 RF: 0 famotidine 20 mg Tablet 20 mg PO DAILY 30 Days Qty: 30 RF: 0 tamsulosin [Flomax] 0.4 mg Capsule 0.4 mg PO HS 30 Days Qty: 30 RF: 0 mirtazapine 30 mg tablet 30 mg PO HS 30 Days Qty: 30 RF: 0 loratadine [Claritin] 10 mg Tablet 10 mg PO DAILY 30 Days Qty: 30 RF: 0 sodium chloride [Saline Mist] 0.65 % aerosol,spray 1 - 2 spray NA PRN PRN (Reason: Nasal Congestion) 30 Days Qty: 15 RF: 0 Senokot Extra Strength 17.2 mg Tablet 17.2 mg PO HS 30 Days Qty: 30 RF: 0 Discontinued quetiapine 25 mg tablet 25 mg PO BID RF: 0 carbamazepine 200 mg tablet 200 mg PO BID RF: 0 quetiapine 200 mg tablet 200 mg PO HS RF: 0 tamsulosin 0.4 mg Capsule 0.4 mg PO HS Qty: 1 RF: 0 clonazepam 1 mg Tablet 1 mg PO HS Qty: 1 RF: 0 oxycodone 5 mg Tablet 5 mg PO Q4H PRN (Reason: pain) Qty: 1 RF: 0 Discharge Orders: Discharge Order (Routine); Ordered 02/06/21 Ordered By: Albert Crane Admission Data Admit Date/Time: 01/18/21 15:04 Attending Provider: Albert Crane Admit Provider: Albert Crane Primary Care Provider: Dayron Myers Other Interventions: Discharge Summary Assessment (RN) Last Done: 02/06/21 11:54 Coding Level of Care Code 73798 D/C day mgmt > 30 min Diagnoses Bipolar depression F31.9 Time Spent (min) 120
== END 2021-02-06 12:25 | disposition home or self-care (01) | DRG 885 ==
LOC: SUATTDRO 15:04 → 3S 15:04

== ENCOUNTER 2021-03-16 18:42 | Inpatient (IN) ==
[~2021-03-16 18:42] MED LIST changes: -AMPH10CA9 PO; -AMPH20TA2 PO; -ASTN; -CITA40TA12 PO; -CLON1TAB10 PO; -FEXO1TAB49 PO; -MOME6000 NAE; +RAPID SEQUENCE INDUCTION BAG ONE
[2021-03-16] MEDS: PROPOFOL IV EMULSION 10 MG/ML 100 ML VIAL IV ONE ×2 (18:56→20:27)
[2021-03-16] MEDS: propofoL 1,000 MG/100 ML VIAL IV SCH ×2 (18:56→23:02)
[2021-03-16] MEDS ORDERED: SODIUM CHLORIDE 0.9% 1000ML 1,000 ML IV SCH (19:00)
--- NOTE | 2021-03-16 19:04 | Emergency Department Note ---
Impression & Plan Aggressive behavior, Acute kidney injury, Delirium, Acute respiratory acidosis ED Provider Note NAME: ALEXANDRA BONILLA AGE: 56 SEX: M : 1965 ARRIVES VIA: Ambulance INFORMANT: EMS and police ED PROVIDER(S): Dayron Cadena DO CHIEF COMPLAINT: Altered mental status HPI: The patient is a 56-year-old male who presented to the emergency department with police and EMS. I was unable to obtain any history from the patient. I d id receive a prehospital notification about the patient. According to the police the patient was trying to abduct his [id number]. The patient does have a history of bipolar depression. He was evaluated by police and they were called because of a 911 call about a possible abduction. When the police arrived they found the patient to be very confused and 911 was called for banquet kitchen supervisor to evaluate the patient at the field. When the patient was evaluated he was very restless and agitated. He was treated with Ativan initially. He kept saying to the banquet kitchen supervisor "I just want to get out". He was not making sense at the time. I received a prehospital notification that the patient was agitated and becoming combative. The patient was given ketamine prior to arrival. Upon arrival to the emergency department he was dissociated completely. No other history was able to be obtained. There was no reported trauma. ROS: See above HPI for pertinent positives & negatives. A total of 10 systems reviewed and were otherwise negative. PAST MEDICAL HISTORY: See Below PAST SURGICAL HISTORY: See Below FAMILY HISTORY: See Below SOCIAL HISTORY: See Below HOME MEDICATIONS: See Below ALLERGIES: See Below VITALS: See Below PHYSICAL EXAMINATION: GENERAL: The patient is awake and looking around the room. He does not appear to respond to my questioning. EYES: The conjunctivae are clear. The pupils are round and reactive. Nystagmus was noted. EARS, NOSE, MOUTH AND THROAT: The nose is without any evidence of any deformity. Mucous membranes are moist. NECK: The neck is nontender and supple. RESPIRATORY: Normal respiratory effort is noted there is no evidence of wheezing rhonchi or rales CARDIOVASCULAR: Tachycardic rate with regular rhythm was noted. There is no def inite murmur. GASTROINTESTINAL: The abdomen is soft. Abdomen is nontender. MUSCULOSKELETAL/EXTREMITIES: There is no evidence of gross deformity full range of motion is noted in the hips and shoulders. SKIN: Skin is cool and diaphoretic. There is no pedal edema. NEUROLOGIC: The patient is awake and looking around the room. He does not follow commands. Patellar tendon reflexes are 2+ bilaterally. MEDICAL DECISION MAKING: The patient is a 56-year-old male who presented to the emergency department for an evaluation of acute agitation and delirium. The patient has a mental health history although he was difficult to evaluate because he received ketamine prior to arrival for excited delirium. The patient was received after the ketamine. He was very dissociated. The patient required airway management and was intubated in usual fashion. The patient had a toxic/overdose type work-up obtained. [facility] agreed to evaluate the patient in the emergency department for further management and disposition. He was treated with multiple IV fluid boluses. He was also placed on IV sedation for agitation. His vital signs significantly improved while he was in the emergency department. Triage Nursing notes reviewed. Prior medical records reviewed Vital Signs: reviewed and remarkable for no significant abnormalities Differential diagnosis: Infection, hypoglycemia, electrolyte abnormalities, overdose, toxicologic, cardiac sources, intracerebral event, neurologic, trauma, as well as other pathologies. ER treatment provided: See below Diagnostics interpreted by me: ECG: EKG was obtained in the emergency department. My interpretation is sinus tachycardia 118 bpm. Inferior Q waves were noted. There is no ectopy. There was no acute ST segment abnormalities noted. This was compared to a tracing from January 102020 no significant changes were noted. Cardiac Monitoring: An order was placed for continuous cardiac monitoring. The monitor shows a rate of 67 bpm with sinus rhythm. Laboratory studies: As stated above and show below. Imaging studies: See below Consultation(s): I discussed this case with Dr. Mujica who [facility] He will evaluate the patient in the emergency department. ED COURSE: Procedures: Endotracheal Intubation Indication excited delirium and altered mental status. The patient was on 100% oxygen via NRB prior to the procedure. Suction, airway equipment, RSI drugs, respiratory equipment, and appropriate personnel were prepared prior to the initiation of the procedure. A time out was taken. Inducti on was performed with etomidate and rocuronium. After observing the clinical benefit of the medications, the airway was easily visualized utilizing a glide scope. A 8.0 size ETT tube was placed atraumatically to 25 cm using standard technique. The cuff inflated without signs of malfunction. There were bilateral breath sounds, positive colormetric change, no gastric sounds, a good capnography waveform, and post procedure pulse oximetry was 98%. Post intubation sedation and paralysis was administered using propofol. There were no complications. PDMP:reviewed and no issues Critical Care: I have personally spent greater than 55 minutes of critical care time in the direct management of this patient. This includes bedside care, interpretation of diagnostic studies, and testing, discussion with consultants, patient, and family members, and other required patient management activities. This 55 minutes is in excess of all separately billable procedures. Past Med/Surg History Medical History ADD (attention deficit disorder) Bipolar depression Cluster headache Confusion Hypertension Medial meniscus tear Renal mass Surgical History H/O arthroscopic knee surgery History of rotator cuff surgery Family History Mother Lymphoma Father Prostate cancer Grandmother (Maternal) Hypertension Other Diabetes Social History Smoking Status: Never smoker Second Hand Exposure: No; Hx Alcohol Use: Yes Hx Substance Use: No Preferred Language: Indonesian Communication Ability: Effective Loan Review Manager Required: No Beliefs That Will Affect Care: None marital status: Current Living Situation: Parent Current Living Situation Comment: lives with father Feels Safe at Home: Yes Assistive Devices: Glasses Allergies Allergies Allergy/AdvReac Type Severity Reaction Status Date / Time hydrocodone AdvReac Intermediate BECOMES Verified 01/10/21 14:23 MANIC naproxen AdvReac Mild RECTAL Verified 01/10/21 14:23 BLEEDING WITH EXTENDED USE Home Meds Home Medications Medication Instructions Recorded Confirmed bupropion HCl 150 mg 24 hr tablet, 150 mg PO QAM 03/16/21 03/16/21 extended release famotidine 40 mg tablet (Pepcid) 20 mg PO DAILY 03/16/21 03/16/21 lorazepam 1 mg tablet (Ativan) 1 mg PO TID PRN 03/16/21 03/16/21 paliperidone 3 mg tablet,extended 3 mg PO DAILY 03/16/21 03/16/21 release 24 hr (Invega) paliperidone 6 mg tablet,extended 6 mg PO DAILY 03/16/21 03/16/21 release 24 hr (Invega) quetiapine 50 mg tablet (Seroquel) 50 mg PO HS 03/16/21 03/16/21 Previous Rx's Medication Instructions Recorded amlodipine 5 mg tablet (Norvasc) 5 mg PO QAM 30 Days #30 tab 02/05/21 loratadine 10 mg tablet (Claritin) 10 mg PO DAILY 30 Days #30 tab 02/05/21 mirtazapine 30 mg tablet 30 mg PO HS 30 Days #30 tab 02/05/21 tamsulosin 0.4 mg capsule (Flomax) 0.4 mg PO HS 30 Days #30 cap 02/05/21 thiamine HCl (vitamin B1) 100 mg 100 mg PO QAM 30 Days #30 tab 02/05/21 tablet (Vitamin B-1) Results & Data (ED) Vital Signs Vital Signs - 24 hr 03/16/21 18:40 03/16/21 18:48 03/16/21 18:49 Pulse Rate 138 H Pulse Rate from SpO2 Sensor 117 H Respiratory Rate 28 H Respiratory Depth Shallow Blood Pressure 130/80 Blood Pressure Mean 96 Pulse Oximetry 98 96 Oxygen Delivery Method Oxymask Room Air Oxygen Flow Rate 4 Fraction of Inspired Oxygen Sepsis Recent Fever Within 48 Hours No Sepsis New/Unexplained Change in Mental Status No Sepsis Action Taken by Nursing Physician Notified End-Tidal CO2 03/16/21 18:50 03/16/21 18:55 03/16/21 19:00 Pulse Rate 119 H 117 H Pulse Rate from SpO2 Sensor 117 H 118 H Respiratory Rate 20 Respiratory Depth Blood Pressure Blood Pressure Mean Pulse Oximetry 96 98 95 Oxygen Delivery Method Oxygen Flow Rate Fraction of Inspired Oxygen 80 Sepsis Recent Fever Within 48 Hours Sepsis New/Unexplained Change in Mental Status Sepsis Action Taken by Nursing End-Tidal CO2 49 34 03/16/21 19:05 03/16/21 19:10 03/16/21 19:20 Pulse Rate 125 H Pulse Rate from SpO2 Sensor 125 H 116 H Respiratory Rate Respiratory Depth Blood Pressure Blood Pressure Mean Pulse Oximetry 97 97 Oxygen Delivery Method Oxygen Flow Rate Fraction of Inspired Oxygen 70 Sepsis Recent Fever Within 48 Hours Sepsis New/Unexplained Change in Mental Status Sepsis Action Taken by Nursing End-Tidal CO2 45 45 03/16/21 19:36 03/16/21 19:40 03/16/21 19:50 Pulse Rate 114 H 112 H 101 H Pulse Rate from SpO2 Sensor 111 H 101 H Respiratory Rate 20 Respiratory Depth Blood Pressure 180/107 H Blood Pressure Mean 131 Pulse Oximetry 95 95 Oxygen Delivery Method Oxygen Flow Rate Fraction of Inspired Oxygen 50 Sepsis Recent Fever Within 48 Hours Sepsis New/Unexplained Change in Mental Status Sepsis Action Taken by Nursing End-Tidal CO2 36 51 03/16/21 20:00 03/16/21 20:10 03/16/21 20:20 Pulse Rate 100 H 96 H 95 H Pulse Rate from SpO2 Sensor 100 H 97 H 95 H Respiratory Rate 26 H Respiratory Depth Blood Pressure 132/85 Blood Pressure Mean 100 Pulse Oximetry 96 95 96 Oxygen Delivery Method Mechanical Vent Oxygen Flow Rate Fraction of Inspired Oxygen 40 Sepsis Recent Fever Within 48 Hours Sepsis New/Unexplained Change in Mental Status Sepsis Action Taken by Nursing End-Tidal CO2 46 45 41 03/16/21 20:30 03/16/21 20:40 03/16/21 20:46 Pulse Rate 95 H 89 89 Pulse Rate from SpO2 Sensor 96 H 89 Respiratory Rate 20 Respiratory Depth Blood Pressure 124/82 Blood Pressure Mean 96 Pulse Oximetry 97 99 100 Oxygen Delivery Method Mechanical Vent Mechanical Vent Mechanical Vent Oxygen Flow Rate Fraction of Inspired Oxygen Sepsis Recent Fever Within 48 Hours Sepsis New/Unexplained Change in Mental Status Sepsis Action Taken by Nursing End-Tidal CO2 41 40 03/16/21 20:50 03/16/21 21:00 03/16/21 21:10 Pulse Rate 88 83 79 Pulse Rate from SpO2 Sensor 88 84 79 Respiratory Rate Respiratory Depth Blood Pressure 122/82 Blood Pressure Mean 95 Pulse Oximetry 100 100 100 Oxygen Delivery Method Mechanical Vent Mechanical Vent Mechanical Vent Oxygen Flow Rate Fraction of Inspired Oxygen Sepsis Recent Fever Within 48 Hours Sepsis New/Unexplained Change in Mental Status Sepsis Action Taken by Nursing End-Tidal CO2 40 40 41 03/16/21 21:20 Pulse Rate 73 Pulse Rate from SpO2 Sensor 74 Respiratory Rate Respiratory Depth Blood Pressure 105/69 Blood Pressure Mean 81 Pulse Oximetry 100 Oxygen Delivery Method Mechanical Vent Oxygen Flow Rate Fraction of Inspired Oxygen Sepsis Recent Fever Within 48 Hours Sepsis New/Unexplained Change in Mental Status Sepsis Action Taken by Nursing End-Tidal CO2 39 Home Medications Current Medication List: was personally reviewed by me Laboratory Data Attestation: I reviewed the patient's lab results. Result diagrams: 03/16/21 18:52 03/16/21 18:52 Lab Results 03/16/21 03/16/21 03/16/21 Range/Units 18:52 18:52 18:52 WBC (4.8-10.8) K/uL RBC (4.7-6.1) M/uL Hgb (14.0-18.0) g/dL POC Hgb (14.0-18.0) g/dl Hct (42-52) % POC Hct (42-52) % MCV (80-100) fL MCH (25-34) pg MCHC (32-36) g/dL RDW Std Deviation (36.4-46.3) fL RDW Coeff of Peter (11.5-14.5) % Plt Count (130-400) K/uL MPV (7.4-10.4) fL Immature Gran % (Auto) % Neut % (Auto) % Lymph % (Auto) % Gibson % (Auto) % Eos % (Auto) % Baso % (Auto) % Neut # (Auto) (1.4-6.5) K/uL Lymph # (Auto) (1.2-3.4) K/uL Gibson # (Auto) (0.11-0.59) K/uL Eos # (Auto) (0-0.5) K/uL Baso # (Auto) (0-0.2) K/uL Immature Gran # (Auto) (0.00-0.02) K/uL PT 10.5 (9.0-12.0) Seconds INR 1.0 (0.9-1.1) APTT 23.0 (21.0-31.0) Seconds PTT Ratio 0.9 POC pH (7.35-7.45) POC pCO2 (35-46) mmHg POC pO2 (80-95) mmHg POC HCO3 (19-24) thang/L POC Total CO2 (24-31) mmol/L POC Base Excess (-9-1.8) thang/L POC ABG O2 Sat (90-95) % Carboxyhemoglobin % THgb POC Sodium (135-144) mmol/L Sodium 140 (136-145) mmol/L POC Potassium (3.3-5.0) mmol/L Potassium 3.8 (3.5-5.1) mmol/L Chloride 106 (98-107) mmol/L Carbon Dioxide 22 (21-32) mmol/L Anion Gap 13.0 H (3-11) BUN 18 (7-18) mg/dl Creatinine 1.92 H (0.6-1.4) mg/dl Est Cr Clr Drug Dosing Not Reportable Est GFR ( Amer) 43.5 ml/min Est GFR (Non-Af Amer) 37.5 ml/min BUN/Creatinine Ratio 9.5 L (10-20) Glucose 166 H (70-99) mg/dl Calcium 9.3 (8.5-10.1) mg/dl Magnesium 2.1 (1.8-2.4) mg/dl Total Bilirubin 0.3 (0.2-1) mg/dl AST 16 (15-37) U/L ALT 29 (12-78) U/L Alkaline Phosphatase 82 (45-117) U/L Total Creatine Kinase 265 (39-308) U/L Troponin I < 0.015 (0-0.045) ng/ml Total Protein 7.8 (6.4-8.2) gm/dl Albumin 3.3 L (3.4-5.0) gm/dl Globulin 4.5 H (2.5-4.0) gm/dl Albumin/Globulin Ratio 0.7 L (0.9-2) Lipase 142 (73-393) U/L Urine Color Urine Appearance (Clear) Urine pH (4.5-7.5) Ur Specific [place] (1.000-1.030) Urine Protein (Negative) Urine Glucose (UA) (Negative) Urine Ketones (Negative) Urine Blood (Negative) Urine Nitrite (Negative) Urine Bilirubin (Negative) Urine Urobilinogen (Negative) Ur Leukocyte Esterase (Negative) Salicylates < 1.7 L (2.8-20) mg/dl Urine Opiates Screen (Neg) Ur Methadone, Qual (Neg) Acetaminophen < 2 L (10-30) ug/ml Urine Barbiturates (Neg) Ur Phencyclidine (PCP) (Neg) U Amphetamin/Meth Scrn (Neg) MDMA (Ecstasy) Screen (Neg) U Benzodiazepines Scrn (Neg) Ur Cocaine Metabolite (Neg) U Marijuana (THC) Screen (Neg) Ethyl Alcohol mg/dL (0-3) mg/dl COVID-19 Eval Order SARS-CoV-2 (PCR) (Negative) 03/16/21 03/16/21 03/16/21 Range/Units 18:52 18:52 18:52 WBC 12.35 H (4.8-10.8) K/uL RBC 4.31 L (4.7-6.1) M/uL Hgb 12.4 L (14.0-18.0) g/dL POC Hgb (14.0-18.0) g/dl Hct 37.9 L (42-52) % POC Hct (42-52) % MCV 87.9 (80-100) fL MCH 28.8 (25-34) pg MCHC 32.7 (32-36) g/dL RDW Std Deviation 46.6 H (36.4-46.3) fL RDW Coeff of Peter 14.4 (11.5-14.5) % Plt Count 354 (130-400) K/uL MPV 10.1 (7.4-10.4) fL Immature Gran % (Auto) 0.2 % Neut % (Auto) 87.2 % Lymph % (Auto) 7.5 % Gibson % (Auto) 4.5 % Eos % (Auto) 0.2 % Baso % (Auto) 0.4 % Neut # (Auto) 10.78 H (1.4-6.5) K/uL Lymph # (Auto) 0.93 L (1.2-3.4) K/uL Gibson # (Auto) 0.55 (0.11-0.59) K/uL Eos # (Auto) 0.02 (0-0.5) K/uL Baso # (Auto) 0.05 (0-0.2) K/uL Immature Gran # (Auto) 0.02 (0.00-0.02) K/uL PT (9.0-12.0) Seconds INR (0.9-1.1) APTT (21.0-31.0) Seconds PTT Ratio POC pH (7.35-7.45) POC pCO2 (35-46) mmHg POC pO2 (80-95) mmHg POC HCO3 (19-24) thang/L POC Total CO2 (24-31) mmol/L POC Base Excess (-9-1.8) thang/L POC ABG O2 Sat (90-95) % Carboxyhemoglobin 0.0 % THgb POC Sodium (135-144) mmol/L Sodium (136-145) mmol/L POC Potassium (3.3-5.0) mmol/L Potassium (3.5-5.1) mmol/L Chloride (98-107) mmol/L Carbon Dioxide (21-32) mmol/L Anion Gap (3-11) BUN (7-18) mg/dl Creatinine (0.6-1.4) mg/dl Est Cr Clr Drug Dosing Est GFR ( Amer) ml/min Est GFR (Non-Af Amer) ml/min BUN/Creatinine Ratio (10-20) Glucose (70-99) mg/dl Calcium (8.5-10.1) mg/dl Magnesium (1.8-2.4) mg/dl Total Bilirubin (0.2-1) mg/dl AST (15-37) U/L ALT (12-78) U/L Alkaline Phosphatase (45-117) U/L Total Creatine Kinase (39-308) U/L Troponin I (0-0.045) ng/ml Total Protein (6.4-8.2) gm/dl Albumin (3.4-5.0) gm/dl Globulin (2.5-4.0) gm/dl Albumin/Globulin Ratio (0.9-2) Lipase (73-393) U/L Urine Color Urine Appearance (Clear) Urine pH (4.5-7.5) Ur Specific [place] (1.000-1.030) Urine Protein (Negative) Urine Glucose (UA) (Negative) Urine Ketones (Negative) Urine Blood (Negative) Urine Nitrite (Negative) Urine Bilirubin (Negative) Urine Urobilinogen (Negative) Ur Leukocyte Esterase (Negative) Salicylates (2.8-20) mg/dl Urine Opiates Screen (Neg) Ur Methadone, Qual (Neg) Acetaminophen (10-30) ug/ml Urine Barbiturates (Neg) Ur Phencyclidine (PCP) (Neg) U Amphetamin/Meth Scrn (Neg) MDMA (Ecstasy) Screen (Neg) U Benzodiazepines Scrn (Neg) Ur Cocaine Metabolite (Neg) U Marijuana (THC) Screen (Neg) Ethyl Alcohol mg/dL < 3.0 (0-3) mg/dl COVID-19 Eval Order SARS-CoV-2 (PCR) (Negative) 03/16/21 03/16/21 03/16/21 Range/Units 19:11 19:11 19:40 WBC (4.8-10.8) K/uL RBC (4.7-6.1) M/uL Hgb (14.0-18.0) g/dL POC Hgb (14.0-18.0) g/dl Hct (42-52) % POC Hct (42-52) % MCV (80-100) fL MCH (25-34) pg MCHC (32-36) g/dL RDW Std Deviation (36.4-46.3) fL RDW Coeff of Peter (11.5-14.5) % Plt Count (130-400) K/uL MPV (7.4-10.4) fL Immature Gran % (Auto) % Neut % (Auto) % Lymph % (Auto) % Gibson % (Auto) % Eos % (Auto) % Baso % (Auto) % Neut # (Auto) (1.4-6.5) K/uL Lymph # (Auto) (1.2-3.4) K/uL Gibson # (Auto) (0.11-0.59) K/uL Eos # (Auto) (0-0.5) K/uL Baso # (Auto) (0-0.2) K/uL Immature Gran # (Auto) (0.00-0.02) K/uL PT (9.0-12.0) Seconds INR (0.9-1.1) APTT (21.0-31.0) Seconds PTT Ratio POC pH (7.35-7.45) POC pCO2 (35-46) mmHg POC pO2 (80-95) mmHg POC HCO3 (19-24) thang/L POC Total CO2 (24-31) mmol/L POC Base Excess (-9-1.8) thang/L POC ABG O2 Sat (90-95) % Carboxyhemoglobin % THgb POC Sodium (135-144) mmol/L Sodium (136-145) mmol/L POC Potassium (3.3-5.0) mmol/L Potassium (3.5-5.1) mmol/L Chloride (98-107) mmol/L Carbon Dioxide (21-32) mmol/L Anion Gap (3-11) BUN (7-18) mg/dl Creatinine (0.6-1.4) mg/dl Est Cr Clr Drug Dosing Est GFR ( Amer) ml/min Est GFR (Non-Af Amer) ml/min BUN/Creatinine Ratio (10-20) Glucose (70-99) mg/dl Calcium (8.5-10.1) mg/dl Magnesium (1.8-2.4) mg/dl Total Bilirubin (0.2-1) mg/dl AST (15-37) U/L ALT (12-78) U/L Alkaline Phosphatase (45-117) U/L Total Creatine Kinase (39-308) U/L Troponin I (0-0.045) ng/ml Total Protein (6.4-8.2) gm/dl Albumin (3.4-5.0) gm/dl Globulin (2.5-4.0) gm/dl Albumin/Globulin Ratio (0.9-2) Lipase (73-393) U/L Urine Color Dark Yellow Urine Appearance Clear (Clear) Urine pH 5.5 (4.5-7.5) Ur Specific [place] 1.024 (1.000-1.030) Urine Protein Negative (Negative) Urine Glucose (UA) Negative (Negative) Urine Ketones Trace H (Negative) Urine Blood Negative (Negative) Urine Nitrite Negative (Negative) Urine Bilirubin Negative (Negative) Urine Urobilinogen Negative (Negative) Ur Leukocyte Esterase Negative (Negative) Salicylates (2.8-20) mg/dl Urine Opiates Screen (Neg) Ur Methadone, Qual (Neg) Acetaminophen (10-30) ug/ml Urine Barbiturates (Neg) Ur Phencyclidine (PCP) (Neg) U Amphetamin/Meth Scrn (Neg) MDMA (Ecstasy) Screen (Neg) U Benzodiazepines Scrn (Neg) Ur Cocaine Metabolite (Neg) U Marijuana (THC) Screen (Neg) Ethyl Alcohol mg/dL (0-3) mg/dl COVID-19 Eval Order Covid19 at [facility] SARS-CoV-2 (PCR) NEGATIVE (Negative) 03/16/21 03/16/21 Range/Units 19:40 20:08 WBC (4.8-10.8) K/uL RBC (4.7-6.1) M/uL Hgb (14.0-18.0) g/dL POC Hgb 12.2 L (14.0-18.0) g/dl Hct (42-52) % POC Hct 36 L (42-52) % MCV (80-100) fL MCH (25-34) pg MCHC (32-36) g/dL RDW Std Deviation (36.4-46.3) fL RDW Coeff of Peter (11.5-14.5) % Plt Count (130-400) K/uL MPV (7.4-10.4) fL Immature Gran % (Auto) % Neut % (Auto) % Lymph % (Auto) % Gibson % (Auto) % Eos % (Auto) % Baso % (Auto) % Neut # (Auto) (1.4-6.5) K/uL Lymph # (Auto) (1.2-3.4) K/uL Gibson # (Auto) (0.11-0.59) K/uL Eos # (Auto) (0-0.5) K/uL Baso # (Auto) (0-0.2) K/uL Immature Gran # (Auto) (0.00-0.02) K/uL PT (9.0-12.0) Seconds INR (0.9-1.1) APTT (21.0-31.0) Seconds PTT Ratio POC pH 7.32 L (7.35-7.45) POC pCO2 53 H (35-46) mmHg POC pO2 121 H (80-95) mmHg POC HCO3 27 H (19-24) thang/L POC Total CO2 29 (24-31) mmol/L POC Base Excess 1.0 (-9-1.8) thang/L POC ABG O2 Sat 98.0 H (90-95) % Carboxyhemoglobin % THgb POC Sodium 143 (135-144) mmol/L Sodium (136-145) mmol/L POC Potassium 4.0 (3.3-5.0) mmol/L Potassium (3.5-5.1) mmol/L Chloride (98-107) mmol/L Carbon Dioxide (21-32) mmol/L Anion Gap (3-11) BUN (7-18) mg/dl Creatinine (0.6-1.4) mg/dl Est Cr Clr Drug Dosing Est GFR ( Amer) ml/min Est GFR (Non-Af Amer) ml/min BUN/Creatinine Ratio (10-20) Glucose (70-99) mg/dl Calcium (8.5-10.1) mg/dl Magnesium (1.8-2.4) mg/dl Total Bilirubin (0.2-1) mg/dl AST (15-37) U/L ALT (12-78) U/L Alkaline Phosphatase (45-117) U/L Total Creatine Kinase (39-308) U/L Troponin I (0-0.045) ng/ml Total Protein (6.4-8.2) gm/dl Albumin (3.4-5.0) gm/dl Globulin (2.5-4.0) gm/dl Albumin/Globulin Ratio (0.9-2) Lipase (73-393) U/L Urine Color Urine Appearance (Clear) Urine pH (4.5-7.5) Ur Specific [place] (1.000-1.030) Urine Protein (Negative) Urine Glucose (UA) (Negative) Urine Ketones (Negative) Urine Blood (Negative) Urine Nitrite (Negative) Urine Bilirubin (Negative) Urine Urobilinogen (Negative) Ur Leukocyte Esterase (Negative) Salicylates (2.8-20) mg/dl Urine Opiates Screen Neg (Neg) Ur Methadone, Qual Neg (Neg) Acetaminophen (10-30) ug/ml Urine Barbiturates Neg (Neg) Ur Phencyclidine (PCP) Neg (Neg) U Amphetamin/Meth Scrn Neg (Neg) MDMA (Ecstasy) Screen Pos H (Neg) U Benzodiazepines Scrn Neg (Neg) Ur Cocaine Metabolite Neg (Neg) U Marijuana (THC) Screen Neg (Neg) Ethyl Alcohol mg/dL (0-3) mg/dl COVID-19 Eval Order SARS-CoV-2 (PCR) (Negative) Administered Medications Propofol (Diprivan) 1,000 mg in 100 mls @ 23.4 mls/hr IV .[id number] [facility]; Protocol Stop: 03/19/21 20:29 Last Admin: 03/16/21 23:02 Dose: 50 mcg/kg/min, 29.3 mls/hr Documented by: [id number] Cosigned by: [id number] Titration: 03/16/21 23:02 Dose: 40 mcg/kg/min, 23.4 mls/hr Documented by: [id number] Cosigned by: [id number] Titration: 03/16/21 20:48 Dose: 40 mcg/kg/min, 23.4 mls/hr Documented by: [id number] Titration: 03/16/21 20:43 Dose: 30 mcg/kg/min, 17.6 mls/hr Documented by: [id number] Titration: 03/16/21 20:37 Dose: 20 mcg/kg/min, 11.7 mls/hr Documented by: [id number] Titration: 03/16/21 20:32 Dose: 10 mcg/kg/min, 5.9 mls/hr Documented by: [id number] Admin: 03/16/21 18:56 Dose: 5 mcg/kg/min, 2.9 mls/hr Documented by: [id number] Cosigned by: [id number] Parenteral Electrolytes (Normosol-R) 1,000 mls @ 80 mls/hr IV .[id number] [facility] Stop: 04/15/21 21:59 Last Admin: 03/16/21 23:26 Dose: 80 mls/hr Documented by: [id number] Azithromycin 500 mg/ Dextrose 255 mls @ 127.5 mls/hr IV 2230 [facility] Stop: 03/17/21 00:29 Last Admin: 03/16/21 23:44 Dose: 127.5 mls/hr Documented by: [id number] Ceftriaxone Sodium 2,000 mg/ (Dextrose) 70 mls @ 140 mls/hr IV Q24H [facility] Stop: 03/24/21 00:00 Last Infusion: 03/16/21 23:44 Dose: 0 mls/hr Documented by: [id number] Admin: 03/16/21 23:04 Dose: 140 mls/hr Documented by: [id number] Famotidine 20 mg/ Syringe 5 mls @ 2.5 mls/min IV Q12H [facility] Stop: 04/15/21 22:59 Last Admin: 03/16/21 23:05 Dose: 2.5 mls/min Documented by: [id number] Propofol (Propofol Bolus From Bag) 20 mg IV Q5M PRN PRN Reason: Sedation Stop: 03/19/21 20:22 Last Admin: 03/16/21 20:57 Dose: 20 mg Documented by: [id number] Cosigned by: [id number] Admin: 03/16/21 20:43 Dose: 20 mg Documented by: [id number] Cosigned by: [id number] Admin: 03/16/21 20:34 Dose: 20 mg Documented by: [id number] Cosigned by: [id number] Discontinued Medications Fentanyl Citrate (Fentanyl Citrate 100 Mcg/2 Ml Vial) 100 mcg IV NOW STA Stop: 03/16/21 20:58 Last Admin: 03/16/21 21:05 Dose: 100 mcg Documented by: [id number] Sodium Chloride (Nss 1000ml) 1,000 mls @ 999 mls/hr IV .Q1H1M JACLYN Stop: 03/16/21 20:00 Last Infusion: 03/16/21 20:15 Dose: 0 mls/hr Documented by: [id number] Admin: 03/16/21 19:13 Dose: 999 mls/hr Documented by: [id number] Sodium Chloride (Nss 1000ml) 1,000 mls @ 999 mls/hr IV .Q1H1M ONE Stop: 03/16/21 21:57 Last Infusion: 03/16/21 23:45 Dose: 0 mls/hr Documented by: [id number] Admin: 03/16/21 21:05 Dose: 999 mls/hr Documented by: [id number] Midazolam HCl (Midazolam Hcl 1 Mg/Ml 2ml Vial) 2 mg IV NOW STA Stop: 03/16/21 20:58 Last Admin: 03/16/21 21:05 Dose: 2 mg Documented by: [id number] Miscellaneous (Rapid Sequence Induction Bag) Confirm Administered Dose 1 ea .ROUTE .STK-MED ONE Stop: 03/16/21 18:19 Last Admin: 03/16/21 19:13 Dose: 1 ea Documented by: [id number] Miscellaneous (Stat Iv Infusion Titration Per Protocol) 1 ea N/A NOW STA Stop: 03/16/21 20:24 Last Admin: 03/16/21 20:24 Dose: Not Given Documented by: [id number] Propofol (Propofol Iv Emulsion 10 Mg/Ml 100 Ml Vial) Confirm Administered Dose 1,000 mg IV .STK-MED ONE Stop: 03/16/21 18:55 Last Admin: 03/16/21 20:27 Dose: Not Given Documented by: [id number] Imaging Data Radiologist's Impression: Chest X-Ray 03/16/21 18:47 XR chest 1V portable HISTORY: 56 years-old Male AMS acute respiratory failure COMPARISON: Chest radiograph 01/15/2021 TECHNIQUE: 7 radiographic views of the chest. FINDINGS: 7 radiographic views of the chest were obtained over an 11 minute time interval. The last image obtained at 7:08 PM demonstrates an endotracheal tube terminating 7 mm superior to the mario. Cardiomegaly. Pulmonary vascular congestion with asymmetric left lung interstitial coarsening. Ill-defined bibasilar opacities, left greater than right. No pneumothorax or large pleural effusion. Degenerative changes of the shoulders and spine. IMPRESSION: 1. The endotracheal tube overlies the midline 7 mm superior to the mario. A few centimeters of retraction recommended. 2. Left greater than right bilateral pulmonary opacities are suggestive of asymmetric pulmonary edema versus pneumonia. ACT 112: Negative or not required by law. The above report was generated using voice recognition software. It may contain grammatical, syntax or spelling errors. Electronically signed by: Edgard Barry M.D. 03/16/2021 7:[address] 03/16/21 18:48 CT head/brain wo con CLINICAL HISTORY: 56 years-old Male with AMS. Acutely altered mental status TECHNIQUE: Multiple axial CT images of the head were obtained without contrast. A dose lowering technique was utilized adhering to the principles of ALARA. CT DOSE: 773.57 mGy.cm COMPARISON: Head CT 01/10/2021 FINDINGS: No acute intracranial hemorrhage, midline shift, intracranial mass, hydrocephalus, territorial ischemia or abnormal extra-axial collection. Mild white matter hypodensities suggest chronic microvascular ischemic disease. Low- lying cerebellar tonsils. Senescent calcifications of the basal ganglia. The calvarium is intact. Mastoid air cells are clear. Mucosal thickening of the ethmoid air cells with secretions within the airway. IMPRESSION: No acute intracranial abnormality. ACT 112: Negative or not required by law. The above report was generated using voice recognition software. It may contain grammatical, syntax or spelling errors. Electronically signed by: Edgard Barry M.D. 03/16/2021 7:38 PM Discharge Plan Visit Data Chief Complaint: Altered Mental Status Stated Complaint: [facility] ED Provider: Dayron Cadena Discharge Problem: Aggressive behavior, Acute kidney injury, Delirium, Acute respiratory acidosis Patient Disposition: Admitted As Inpatient Discharge Instructions Interventions: ED Discharge Assessment Last Done: 03/16/21 22:01
[2021-03-16 19:05] LABS: Hematocrit (blood only) 37.9 % (42-52); Hemoglobin 12.4 g/dL (14.0-18.0); Mean Corpuscular Hemoglobin 28.8 pg (25-34); Mean Corpuscular Hgb Conc 32.7 g/dL (32-36); Mean Corpuscular Volume 87.9 fL (80-100); Mean Platelet Volume 10.1 fL (7.4-10.4); Platelet Count 354 K/uL (130-400); RDW Coefficient of Variation 14.4 % (11.5-14.5); RDW Standard Deviation 46.6 fL (36.4-46.3); Red Blood Count 4.31 M/uL (4.7-6.1); White Blood Count 12.35 K/uL (4.8-10.8)
[2021-03-16 19:21] LABS: Partial Thromboplastin Ratio 0.9; Prothrombin Time 10.5 Seconds (9.0-12.0)
[2021-03-16 19:28] LABS: Alanine Aminotransferase 29 U/L (12-78); Albumin Level 3.3 gm/dl (3.4-5.0); Aspartate Aminotransferase 16 U/L (15-37); BUN Creatinine Ratio 9.5 (10-20); Blood Urea Nitrogen 18 mg/dl (7-18); Calcium 9.3 mg/dl (8.5-10.1); Carbon Dioxide 22 mmol/L (21-32); Chloride 106 mmol/L (98-107); Est GFR (African American) 43.5 ml/min; Est GFR (Non-African American) 37.5 ml/min; Glucose 166 mg/dl (70-99); Lipase 142 U/L (73-393); Magnesium 2.1 mg/dl (1.8-2.4); Potassium 3.8 mmol/L (3.5-5.1); Sodium 140 mmol/L (136-145)
[2021-03-16 19:29] LABS: Basophils # (auto) 0.05 K/uL (0-0.2); Basophils % (auto) 0.4 %; Eosinophils # (auto) 0.02 K/uL (0-0.5); Eosinophils % (auto) 0.2 %; Immature Granulocytes # (auto) 0.02 K/uL (0.00-0.02); Immature Granulocytes % (auto) 0.2 %; Lymphocytes # (auto) 0.93 K/uL (1.2-3.4); Lymphocytes % (auto) 7.5 %; Monocytes # (auto) 0.55 K/uL (0.11-0.59); Monocytes % (auto) 4.5 %; Neutrophils # (auto) 10.78 K/uL (1.4-6.5); Neutrophils % (auto) 87.2 %
--- NOTE | 2021-03-16 19:29 | XRay Report ---
XR chest 1V portable HISTORY: 56 years-old Male AMS acute respiratory failure COMPARISON: Chest radiograph 01/15/2021 TECHNIQUE: 7 radiographic views of the chest. FINDINGS: 7 radiographic views of the chest were obtained over an 11 minute time interval. The last image obta[place] at 7:08 PM demonstrates an endotracheal tube terminating 7 mm superior to the mario. Cardiomegal y. Pulmonary vascular congestion with asymmetric left lung interstitial coarsening. Ill-defined bibas ilar opacities, left greater than right. No pneumothorax or large pleural effusion. Degenerative jones ges of the shoulders and spine. IMPRESSION: 1. The endotracheal tube overlies the midline 7 mm superior to the mario. A few centimeters of retra ction recommended. 2. Left greater than right bilateral pulmonary opacities are suggestive of asymmetric pulmonary edema versus pneumonia. ACT 112: Negative or not required by law. The above report was generated using voice recognition software. It may contain grammatical, syntax o r spelling errors. Electronically signed by: Edgard Barry M.D. 03/16/2021 7:28 PM
[2021-03-16 19:33] LABS: Albumin Globulin Ratio 0.7 (0.9-2); Alkaline Phosphatase 82 U/L (45-117); Bilirubin,Total 0.3 mg/dl (0.2-1); Creatine Kinase 265 U/L (39-308); Globulin 4.5 gm/dl (2.5-4.0); Total Protein 7.8 gm/dl (6.4-8.2); Troponin I < 0.015 ng/ml (0-0.045)
[2021-03-16 19:39] LABS: Acetaminophen < 2 ug/ml (10-30); Salicylate < 1.7 mg/dl (2.8-20)
--- NOTE | 2021-03-16 19:40 | CT Scan Report ---
CT head/brain wo con CLINICAL HISTORY: 56 years-old Male with AMS. Acutely altered mental status TECHNIQUE: Multiple axial CT images of the head were obtained without contrast. A dose lowering tech nique was utilized adhering to the principles of ALARA. CT DOSE: 773.57 mGy.cm COMPARISON: Head CT 01/10/2021 FINDINGS: No acute intracranial hemorrhage, midline shift, intracranial mass, hydrocephalus, territorial ischem ia or abnormal extra-axial collection. Mild white matter hypodensities suggest chronic microvascular ischemic disease. Low-lying cerebellar tonsils. Senescent calcifications of the basal ganglia. The calvarium is intact. Mastoid air cells are clear. Mucosal thickening of the ethmoid air cells wi th secretions within the airway. IMPRESSION: No acute intracranial abnormality. ACT 112: Negative or not required by law. The above report was generated using voice recognition software. It may contain grammatical, syntax o r spelling errors. Electronically signed by: Edgard Barry M.D. 03/16/2021 7:38 PM
[2021-03-16 19:47] LABS: Appearance Urine Clear (Clear); Bilirubin Urine Negative (Negative); Blood Urine Negative (Negative); Color Urine Dark Yellow; Glucose Urine UA Negative (Negative); Ketones Urine Trace (Negative); Leukocyte Esterase Urine Negative (Negative); Nitrite Urine Negative (Negative); Protein Urine Negative (Negative); Specific Gravity Urine 1.024 (1.000-1.030); Urobilinogen Urine Negative (Negative); pH Urine 5.5 (4.5-7.5)
[2021-03-16] MEDS ORDERED: STAT IV Infusion **Titration per Protocol STA (20:23)
[2021-03-16 20:24] LABS: iSTAT Arterial Blood Gas HCO3 27 meg/L (19-24); iSTAT Arterial Blood Gas pCO2 53 mmHg (35-46); iSTAT Arterial Blood Gas pH 7.32 (7.35-7.45); iSTAT Arterial Blood Gas pO2 121 mmHg (80-95); iSTAT Carbon Dioxide 29 mmol/L (24-31); iSTAT Hematocrit 36 % (42-52); iSTAT Hemoglobin 12.2 g/dl (14.0-18.0); iSTAT Sodium 143 mmol/L (135-144)
[2021-03-16 20:25] LABS: Amphetamines+Metham, Urine Neg (Neg); Barbiturates, Urine Neg (Neg); Benzodiazepine, Urine Neg (Neg); Cocaine, Urine Neg (Neg); MDMA (Ecstacy), Urine Pos (Neg); Methadone, Urine Neg (Neg); Opiate, Urine Neg (Neg); Phencyclidine, Urine Neg (Neg)
[2021-03-16] MEDS: PROPOFOL BOLUS FROM BAG IV PRN ×7 (20:34→23:30)
[2021-03-16] MEDS ORDERED: SODIUM CHLORIDE 0.9% 1000ML 1,000 ML IV ONE (20:57)
[2021-03-16] MEDS ORDERED: fentaNYL citrate 100 MCG/2 ML VIAL IV STA (20:57)
[2021-03-16] MEDS ORDERED: MIDAZOLAM HCL 1 MG/ML 2ML VIAL IV STA (20:57)
--- NOTE | 2021-03-16 21:31 | History & Physical Report ---
Date of Service March 16, 2021 Assessment & Plan (1) Delirium: (2) Acute respiratory acidosis: (3) CAP (community acquired pneumonia): Plan: 56 yo M Hx ADHD, bipolar disorder, right renal cell carcinoma status post nephrectomy admitted due to intubation and sedation for severe aggressive behavior, and noted to have a possible pneumonia on imaging. Altered mental status, Hx bipolar disorder: Patient with extensive psychiatric history with several admissions for aggression, suicidal ideation, and altered mental status in the past. Presented in excited delirium with need for intubation and sedation. Does have findings on imaging potentially suggestive of pneumonia, and started on ceftriaxone/azithromycin for CAP in the ER. Lactate and procal negative. Defer continuation to ICU service. No other clear infectious or metabolic source of patient's agitation. However, per son, unclear whether patient was taking his prescribed medications. UDS positive for MDMA however patient is on daily bupropion. EtOH level normal, no Tylenol or salicylates in system. Ammonia level normal. CT Head without acute intracranial findings. Patient is a 302 once medically cleared due to aggression witnessed towards others. Consult to Behavioral Health placed to follow when patient extubated. He has had change in medications recently, namely paliperidone and benzo (which son is concerned he had stopped taking entirely). Resume home PO medications (Remeron, Seroquel, bupropion, paliperidone) when able when patient able to tolerate PO. AFTAB on CKD: History of right nephrectomy on 01/15/21 for exophytic 6cm right renal mass incidentally noted on CTAP; on pathology confirmed to have clear cell renal carcinoma. With increase in creatine from 1.14 on 01/15 to 1.92 on admission today. While it would not be unlikely to have some amount of renal dysfunction post-nephrectomy, have ordered a renal ultrasound with Nephrology consult regarding worsening kidney function. BMP daily. Code Status: FULL CODE, discussed with son FEN: NPO, Normosol 100cc/hr, replete electrolytes as needed DVT ppx: SCDs Dispo: Care per ICU History of Present Illness Chief Complaint: severe agitation, AMS Primary Care Provider: Dayron Myers MD 56-year-old male past medical history significant for ADHD, bipolar disorder, right renal cell carcinoma status post nephrectomy presented to the ER via EMS for severe agitation and combativeness requiring ketamine en route to the hospital. On arrival patient was still extremely aggressive and combative, delirious, and was sedated and intubated by ER provider. Noted initially on vital signs to be in sinus tachycardia, which improved significantly with sedation. On lab work patient was noted to have an elevated WBC count to 12.35, ABG with pH 7.32, CO2 53, HCO3 27. Creatinine elevated at 1.92. UA without signs of infection, UDS positive for MDMA (patient is on bupropion in the ou tpatient setting). Alcohol level normal. COVID-19 testing negative. CXR with L>R bilateral pulmonary opacities. On my interview patient was unable to answer questions due to sedation/intubation. Did speak with patient's son over the phone who provided history. The patient was recently discharged from [facility] for psychiatric stay last Monday. He was discharged with some adjustments to his medicines, namely transition from scheduled to as needed benzodiazepines, and the addition of paliperidone to his medication regimen. Today son reports that he seemed agitated and upset around new time, and at first reported that he had not been taking his medicines, but then reported that he has been. Son drove patient over to patient's parents house for dinner, and en route to restaurant for dinner patient became aggressive and combative stating that he wanted to drive and trying to take the keys. Please were called at that time and then EMS was called. Per son patient has had no recent URI symptoms, GI symptoms, UTI symptoms. He reports that he did have his right kidney removed about a month ago due to a large mass that was found later to be cancerous. Allergies Allergy/AdvReac Type Severity Reaction Status Date / Time hydrocodone AdvReac Intermediate BECOMES Verified 01/10/21 14:23 MANIC naproxen AdvReac Mild RECTAL Verified 01/10/21 14:23 BLEEDING WITH EXTENDED USE Home Medications Medication Instructions Recorded Confirmed Type amlodipine 5 mg tablet (Norvasc) 5 mg PO QAM 30 Days #30 tab 02/05/21 03/16/21 Rx loratadine 10 mg tablet (Claritin) 10 mg PO DAILY 30 Days #30 tab 02/05/2103/05 Rx mirtazapine 30 mg tablet 30 mg PO HS 30 Days #30 tab 02/05/21 03/16/21 Rx tamsulosin 0.4 mg capsule (Flomax) 0.4 mg PO HS 30 Days #30 cap 02/05/21 03/16/21 Rx thiamine HCl (vitamin B1) 100 mg 100 mg PO QAM 30 Days #30 tab 02/05/21 03/16/21 Rx tablet (Vitamin B-1) bupropion HCl 150 mg 24 hr tablet, 150 mg PO QAM 03/16/21 03/16/21 History extended release famotidine 40 mg tablet (Pepcid) 20 mg PO DAILY 03/16/21 03/16/21 History lorazepam 1 mg tablet (Ativan) 1 mg PO TID PRN 03/16/21 03/16/21 History paliperidone 3 mg tablet,extended 3 mg PO DAILY 03/16/21 03/16/21 History release 24 hr (Invega) paliperidone 6 mg tablet,extended 6 mg PO DAILY 03/16/21 03/16/21 History release 24 hr (Invega) quetiapine 50 mg tablet (Seroquel) 50 mg PO HS 03/16/21 03/16/21 History Past Med/Surg History Medical History ADD (attention deficit disorder) Bipolar depression Cluster headache Confusion Hypertension Medial meniscus tear Renal mass Surgical History H/O arthroscopic knee surgery History of rotator cuff surgery Family History Mother Lymphoma Father Prostate cancer Grandmother (Maternal) Hypertension Other Diabetes Social History Smoking Status: Never smoker Second Hand Exposure: No; Hx Alcohol Use: Yes Hx Substance Use: No Preferred Language: Hebrew Communication Ability: Effective Fly Tier Required: No Beliefs That Will Affect Care: None marital status: Current Living Situation: Parent Current Living Situation Comment: lives with father Feels Safe at Home: Yes Assistive Devices: Glasses Review of Systems Review of Systems: Unobtainable due to endotracheal tube and Unobtainable due to reduced consciousness Physical Exam Constitutional: WD/WN, vitals as above Eyes: PERRL, conjunctivae normal, anicteric sclerae ENMT: external ear and nose normal, oropharynx normal Neck: normal visual inspection Respiratory: normal respiratory effort, lungs clear to auscultation (intubated) Cardiovascular: RRR, no murmur, no edema Gastrointestinal (Abdomen): normal bowel sounds, soft, nontender, no hepatosplenomegaly Skin: no rashes, warm and dry Neurologic: Patient is intubated and sedated Results & Data Results & Data ([facility]) Vital Signs (Past 12 Hours) Vital Signs Pulse Resp BP Pulse Ox 03/16/21 21:20 73 105/69 100 03/16/21 21:10 79 100 03/16/21 21:00 83 100 03/16/21 20:50 88 122/82 100 03/16/21 20:46 89 20 124/82 100 03/16/21 20:40 89 99 03/16/21 20:30 95 H 97 03/16/21 20:20 95 H 96 03/16/21 20:10 96 H 26 H 132/85 95 03/16/21 20:00 100 H 96 03/16/21 19:50 101 H 95 03/16/21 19:40 112 H 20 95 03/16/21 19:36 114 H 180/107 H 03/16/21 19:20 97 03/16/21 19:10 125 H 97 03/16/21 19:00 117 H 95 03/16/21 18:55 119 H 20 98 03/16/21 18:50 96 03/16/21 18:49 96 03/16/21 18:40 138 H 28 H 130/80 98 Code Status & VTE Plan VTE Prophylaxis Plan VTE Prophylaxis will be ordered: Yes Critical Care Time 40 minutes Supervising Physician Co-Signing Physician Notes Attending addendum: I have physically seen this patient, have supervised the medical residents activities, and agree with the H&P unless as otherwise noted. Assessment and Plan: Altered mental status/delirium/agitation/bipolar disorder/history of suicidal ideation- Underlying psychiatric history may be aggravated by pneumonia- Other complicating factor is medical noncompliance, reportedly had stopped some of his medications Admit to the ICU, presently intubated Ceftriaxone 2 g IV daily Azithromycin 5 mg IV daily Duonebs every 4 hours while awake and every 2 hours when necessary. Consult line maintainer and ICU team for further management 302 Remaining orders and notations as noted Resident Activity Tracking Resident Involvement: Resident Care Provided Care Provided: Adult [facility]
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
[2021-03-16] MEDS ORDERED: NORMOSOL-R 1,000 ML IV SCH (22:00)
[2021-03-16] MEDS ORDERED: AZITHROMYCIN 500 MG in DEXTROSE 5% 250 ML IV SCH (22:30)
[2021-03-16] MEDS ORDERED: ICU PROTOCOL FOR HYPERGLYCEMIA PRN (22:42)
[2021-03-16] MEDS ORDERED: FAMOTIDINE 20 MG in SYRINGE 3 ML IV SCH (23:00)
[2021-03-16] MEDS: cefTRIAXone SODIUM 2,000 MG in DEXTROSE 5% 50 ML IV SCH (23:04)
[2021-03-16] MEDS ORDERED: MIDAZOLAM HCL 1 MG/ML 2ML VIAL ONE (23:37)
[2021-03-17] MEDS ORDERED: MIDAZOLAM HCL 5 MG/ML 1 ML VIAL IV STA (00:27)
[2021-03-17] MEDS ORDERED: MIDAZOLAM HCL 1 MG/ML 2ML VIAL IV PRN (00:30)
[2021-03-17] MEDS: propofoL 1,000 MG/100 ML VIAL IV SCH ×2 (03:11→07:56)
[2021-03-17] MEDS ORDERED: STAT IV Infusion **Titration per Protocol STA (04:37)
[2021-03-17] MEDS: PROPOFOL BOLUS FROM BAG IV PRN (04:40)
[2021-03-17] MEDS ORDERED: DEXMEDETOMIDINE HCL 200 MCG in SODIUM CHLORIDE 0.9% 48 ML IV SCH (04:45)
[2021-03-17 04:50] LABS: iSTAT Allen Test Pass; iSTAT Arterial Blood Gas HCO3 27 meg/L (19-24); iSTAT Arterial Blood Gas pCO2 41 mmHg (35-46); iSTAT Arterial Blood Gas pH 7.42 (7.35-7.45); iSTAT Arterial Blood Gas pO2 118 mmHg (80-95); iSTAT Carbon Dioxide 28 mmol/L (24-31); iSTAT FiO2 30 %; iSTAT Site R Radial
[2021-03-17 05:52] LABS: Basophils # (auto) 0.03 K/uL (0-0.2); Basophils % (auto) 0.3 %; Eosinophils # (auto) 0.22 K/uL (0-0.5); Hemoglobin 11.3 g/dL (14.0-18.0); Immature Granulocytes # (auto) 0.02 K/uL (0.00-0.02); Immature Granulocytes % (auto) 0.2 %; Lymphocytes # (auto) 2.14 K/uL (1.2-3.4); Lymphocytes % (auto) 19.8 %; Mean Corpuscular Hemoglobin 28.8 pg (25-34); Mean Corpuscular Hgb Conc 32.3 g/dL (32-36); Mean Corpuscular Volume 89.1 fL (80-100); Mean Platelet Volume 10.2 fL (7.4-10.4); Monocytes # (auto) 0.96 K/uL (0.11-0.59); Monocytes % (auto) 8.9 %; Neutrophils # (auto) 7.46 K/uL (1.4-6.5); Neutrophils % (auto) 68.8 %; Platelet Count 327 K/uL (130-400); RDW Coefficient of Variation 14.7 % (11.5-14.5); RDW Standard Deviation 47.8 fL (36.4-46.3); Red Blood Count 3.93 M/uL (4.7-6.1); White Blood Count 10.83 K/uL (4.8-10.8)
[2021-03-17 06:25] LABS: BUN Creatinine Ratio 10.9 (10-20); Calcium 8.6 mg/dl (8.5-10.1); Est GFR (African American) 58.6 ml/min; Est GFR (Non-African American) 50.6 ml/min; Magnesium 2.4 mg/dl (1.8-2.4); Potassium 3.5 mmol/L (3.5-5.1)
[2021-03-17 06:26] LABS: Phosphorus 3.7 mg/dl (2.5-4.9)
[2021-03-17] MEDS ORDERED: ALBUMIN 5% 250 ML IV ONE (06:28)
[2021-03-17] MEDS ORDERED: fentaNYL citrate 100 MCG/2 ML VIAL IV STA (06:32)
[2021-03-17] MEDS ORDERED: fentaNYL citrate 100 MCG/2 ML VIAL ONE (06:35)
--- NOTE | 2021-03-17 06:56 | XRay Report ---
KUB CLINICAL HISTORY: OG tube placement COMPARISON STUDY: CT of the abdomen and pelvis January 10, 2021. FINDINGS: The tip of the orogastric tube projects over the gastric fundus. Bowel gas pattern is kym l. A moderate amount stool within the colon and rectum is noted. IMPRESSION: 1. Tip of orogastric tube projects over the gastric fundus. 2. No evidence for a bowel obstruction. ACT 112: Negative or not required by law. Electronically signed by: Vaughn Lind M.D. 03/17/2021 6:55 AM
--- NOTE | 2021-03-17 07:28 | Ultrasound Report ---
RENAL ULTRASOUND HISTORY: Recent right nephrectomy. worsening kidney function COMPARISON: None. FINDINGS: Right kidney: Prior nephrectomy. No masses or fluid collections identified. Left kidney: 11.2 cm. No hydronephrosis. Normal corticomedullary differentiation and cortical thickne ss. Bladder: Bladder is decompressed by Porras catheter. IMPRESSION: 1. Right nephrectomy. Normal left kidney. 2. The bladder is decompressed by a Porras catheter. ACT 112: Negative or not required by law. Electronically signed by: Henry Spangler M.D. 03/17/2021 7:27 AM
[2021-03-17] MEDS ORDERED: DEXMEDETOMIDINE HCL 400 MCG in 0.9 % SODIUM CHLORIDE 96 ML IV SCH (07:30)
--- NOTE | 2021-03-17 07:55 | Communication Note ---
Date of Service: March 17, 2021 Patient known to me from previous inpatient psychiatric admissions for bipolar disorder. All psych meds currently held with annotation by hospitalist to resume when extubated/alert to tolerate PO. Please do not resume antidepressants (Remeron, Wellbutrin) until evaluated by psych as ronald could be complicating factor in agitated delirium. Will complete full psychiatric consultation when medically more stable. Patient is not able to leave the hospital AMA.
[2021-03-17] MEDS: HEPARIN SOD 5,000 UNIT/0.5 ML VIAL SQ SCH ×2 (07:56→20:25)
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
[2021-03-17] MEDS ORDERED: OLANZapine 10 MG/2.1 ML SDV IM PRN (08:08)
[2021-03-17] MEDS ORDERED: cefTRIAXone SODIUM 1,000 MG in DEXTROSE 5% 50 ML IV SCH (09:00)
[2021-03-17] MEDS ORDERED: PALIPERIDONE 3 MG TABCR PO SCH ×2 (09:00)
[2021-03-17] MEDS: THIAMINE HCL 100 MG TAB PO SCH (09:09)
[2021-03-17] MEDS: FAMOTIDINE 20 MG TAB PO SCH (09:09)
--- NOTE | 2021-03-17 10:16 | Nephrology Consultation ---
Date of Consultation March 17, 2021 Assessment & Plan (1) Acute kidney injury: * AFTAB likely hemodynamically mediated. Patient was mildly hypotensive due to sedation for mechanical ventilation * AFTAB has resolved. Volume status and electrolyte balance are acceptable. Urine sediment is non-nephritic * Monitor PRP. No further renal evaluation indicated at this time. No renal dose adjustment needed for Ceftriaxone therapy * Will sign off. Please call if further Nephrology assistance is needed (2) CKD (chronic kidney disease): * Solitary L kidney * s/p laparoscopic hand assisted R radical nephrectomy 01/15/21. 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 Post-op Cr stabilized at 1.5 - 1.6 * 03/16/21 Renal US: L kidney 11.2 cm, no hydronephrosis, bladder decompressed by [place] catheter History of Present Illness Reason for Consultation: CKD Attending Physician: Endy Louie, History of Present Illness Mr. Sales ia a 56 year old white male who is seen at the request of Dr. Ortega for evaluation of CKD. Patient was evaluated in the ICU this morning and plan of care was discussed w/ the ICU team. Mr. Sales medical history is summarized as follows: Carcinoma of the R kidney incidentally identified during evaluation for unexplained weight loss. Patient underwent laparoscopic hand assisted R radical nephrectomy 01/15/[address] Gomez. Post-op creatinine stabilized at 1.5 - 1.6. His medical history is also significant for ADD, bipolar depression, HTN, migraine LEW. Mr. Sales was recently hospitalized at [facility] for psychiatric care. He presented to the [facility] ED last evening w/ acute delirium and combativeness. He required sedation and mechanical ventilation to secure his airway. SBP was 77 - 90 mm Hg while receiving sedation. COVID testing was negative. CXR revealed L > R pulmonary infiltrates suggestive of pneumonia or edema. Cr was mildly elevated at 1.9. Since admission, patient has been weaned from the ventilator. BP has improved off sedative therapy. His antipsychotic medications have been resumed. Cr has returned to baseline 1.5. Allergies Allergy/AdvReac Type Severity Reaction Status Date / Time hydrocodone AdvReac Intermediate BECOMES Verified 01/10/21 14:23 MANIC naproxen AdvReac Mild RECTAL Verified 01/10/21 14:23 BLEEDING WITH EXTENDED USE Home Medications Medication Instructions Recorded Confirmed Type amlodipine 5 mg tablet (Norvasc) 5 mg PO QAM 30 Days #30 tab 02/05/21 03/16/21 Rx loratadine 10 mg tablet (Claritin) 10 mg PO DAILY 30 Days #30 tab 02/05/21 03/16/21 Rx mirtazapine 30 mg tablet 30 mg PO HS 30 Days #30 tab 02/05/21 03/16/21 Rx tamsulosin 0.4 mg capsule (Flomax) 0.4 mg PO HS 30 Days #30 cap 02/05/21 03/16/21 Rx thiamine HCl (vitamin B1) 100 mg 100 mg PO QAM 30 Days #30 tab 02/05/21 03/16/21 Rx tablet (Vitamin B-1) bupropion HCl 150 mg 24 hr tablet, 150 mg PO QAM 03/16/21 03/16/21 History extended release famotidine 40 mg tablet (Pepcid) 20 mg PO DAILY 03/16/21 03/16/21 History lorazepam 1 mg tablet (Ativan) 1 mg PO TID PRN 03/16/21 03/16/21 History paliperidone 3 mg tablet,extended 3 mg PO DAILY 03/16/21 03/16/21 History release 24 hr (Invega) paliperidone 6 mg tablet,extended 6 mg PO DAILY 03/16/21 03/16/21 History release 24 hr (Invega) quetiapine 50 mg tablet (Seroquel) 50 mg PO HS 03/16/21 03/16/21 History Patient History Medical History ADD (attention deficit disorder) Bipolar depression Cluster headache Confusion Hypertension Medial meniscus tear Renal mass Surgical History H/O arthroscopic knee surgery History of rotator cuff surgery Family History Mother Lymphoma Father Prostate cancer Grandmother (Maternal) Hypertension Other Diabetes Social History Smoking Status: Never smoker Second Hand Exposure: No; Hx Alcohol Use: Yes Hx Substance Use: No Preferred Language: Upper Sorbian Communication Ability: Effective Returner Required: No Beliefs That Will Affect Care: None marital status: Current Living Situation: Parent Current Living Situation Comment: lives with father Feels Safe at Home: Yes Assistive Devices: Glasses Review of Systems Constitutional: no fever Eyes: no problem reported Ear, Nose, Mouth, Throat: no problem reported Respiratory: no cough and no dyspnea Cardiovascular: no chest pain, no palpitations and no edema Gastrointestinal: no abdominal pain, no nausea, no vomiting and no diarrhea/loose stools Genitourinary: no dysuria, no urinary hesitancy or no hematuria Musculoskeletal: no back pain Integumentary: no rash Neurologic: no confusion Physical Exam Constitutional: not in distress Eyes: PERRL, conjunctivae normal, anicteric sclerae ENMT: external ear and nose normal, oropharynx normal Neck: trachea midline, no thyromegaly Respiratory: normal respiratory effort, lungs clear to auscultation Cardiovascular: RRR, no murmur, no edema Gastrointestinal (Abdomen): normal bowel sounds, soft, nontender, no hepatosplenomegaly Skin: no rashes, warm and dry Neurologic: awake; not confused Results & Data ([facility]) Vital Signs (Past 12 Hours) Vital Signs Temp Pulse Resp BP Pulse Ox 03/17/21 10:00 36.8 C 72 20 100 03/17/21 09:34 36.8 C 55 L 14 91/61 L 100 03/17/21 08:37 36.8 C 59 L 14 91/57 L 99 03/17/21 08:34 36.8 C 54 L 20 81/53 L 98 03/17/21 08:00 54 L 03/17/21 07:35 36.7 C 60 108/75 95 03/17/21 07:20 36.7 C 68 99 03/17/21 07:10 36.8 C 52 L 98 03/17/21 07:00 36.8 C 53 L 98 03/17/21 06:54 81/53 L 03/17/21 06:51 85/56 L 03/17/21 06:50 36.8 C 54 L 97 03/17/21 06:44 79/52 L 03/17/21 06:40 36.9 C 60 97 03/17/21 06:35 119/75 03/17/21 06:30 36.9 C 55 L 85/59 L 03/17/21 06:28 77/53 L 03/17/21 06:24 77/55 L 03/17/21 06:20 36.9 C 56 L 98 03/17/21 06:14 80/53 L 03/17/21 06:10 36.9 C 57 L 98 03/17/21 06:09 82/57 L 03/17/21 06:04 84/57 L 03/17/21 06:00 36.9 C 60 99 03/17/21 05:54 92/61 L 03/17/21 05:50 36.9 C 63 99 03/17/21 05:44 99/64 L 03/17/21 05:40 36.8 C 69 99 03/17/21 05:34 105/69 03/17/21 05:30 36.8 C 78 03/17/21 05:24 115/74 03/17/21 05:20 36.8 C 03/17/21 05:14 119/75 03/17/21 05:10 36.7 C 99 03/17/21 05:04 123/77 03/17/21 05:00 36.7 C 83 100 03/17/21 04:54 107/70 03/17/21 04:50 36.7 C 75 100 03/17/21 04:44 118/72 03/17/21 04:40 36.6 C 84 100 03/17/21 04:34 132/84 03/17/21 04:30 36.6 C 80 100 03/17/21 04:24 143/89 H 03/17/21 04:20 36.6 C 80 100 03/17/21 04:14 131/85 03/17/21 04:10 36.5 C 62 100 03/17/21 04:04 101/69 03/17/21 04:02 98/67 L 03/17/21 04:00 36.5 C 62 100 03/17/21 03:54 89/61 L 03/17/21 03:50 36.4 C L 65 100 03/17/21 03:44 98/65 L 03/17/21 03:40 36.3 C L 64 100 03/17/21 03:34 113/76 03/17/21 03:30 36.3 C L 63 100 03/17/21 03:28 62 20 100 03/17/21 03:24 103/69 03/17/21 03:20 36.2 C L 60 100 03/17/21 03:14 101/68 03/17/21 03:10 36.2 C L 64 100 03/17/21 03:04 90/64 L 03/17/21 03:00 36.1 C L 67 99 03/17/21 02:54 85/60 L 03/17/21 02:50 36.1 C L 66 100 03/17/21 02:44 95/68 L 03/17/21 02:40 36.0 C L 65 100 03/17/21 02:34 105/74 03/17/21 02:30 36.0 C L 65 100 03/17/21 02:24 110/78 03/17/21 02:20 36.0 C L 63 100 03/17/21 02:14 113/79 03/17/21 02:10 36.0 C L 69 98 03/17/21 02:04 85/66 L 03/17/21 02:00 36.0 C L 68 98 03/17/21 01:54 85/63 L 03/17/21 01:50 36.0 C L 69 99 03/17/21 01:44 89/65 L 03/17/21 01:40 36.1 C L 70 98 03/17/21 01:34 84/65 L 03/17/21 01:30 36.1 C L 70 98 03/17/21 01:24 86/63 L 03/17/21 01:20 36.2 C L 72 99 03/17/21 01:14 88/65 L 03/17/21 01:10 36.2 C L 71 100 03/17/21 01:04 93/70 L 03/17/21 01:00 36.1 C L 69 99 03/17/21 00:54 107/74 03/17/21 00:50 36.2 C L 70 98 03/17/21 00:44 92/63 L 03/17/21 00:40 36.2 C L 69 99 03/17/21 00:34 93/67 L 03/17/21 00:30 36.1 C L 71 99 03/17/21 00:24 100/66 03/17/21 00:20 36.1 C L 70 100 03/17/21 00:14 96/66 L 03/17/21 00:10 36.1 C L 71 100 03/17/21 00:04 99/66 L 03/17/21 00:00 36.0 C L 71 100 03/16/21 23:54 106/75 03/16/21 23:50 36.0 C L 73 100 03/16/21 23:44 117/77 03/16/21 23:40 36.0 C L 76 100 03/16/21 23:34 141/89 H 03/16/21 23:30 81 98 03/16/21 23:24 128/84 03/16/21 23:20 75 100 03/16/21 23:14 129/86 03/16/21 23:10 77 100 03/16/21 23:04 141/88 H 03/16/21 23:00 81 99 03/16/21 22:54 130/78 03/16/21 22:50 78 100 03/16/21 22:40 75 100 03/16/21 22:34 145/97 H 03/16/21 22:30 81 100 03/16/21 22:29 82 20 100 03/16/21 22:24 137/92 Laboratory Results Laboratory Tests 03/16/21 03/17/21 03/17/21 19:40 05:04 05:04 WBC 10.83 H Hgb 11.3 L Hct 35.0 L Plt Count 327 Sodium 141 Potassium 3.5 Chloride 107 Carbon Dioxide 29 BUN 16 Creatinine 1.50 H D Glucose 87 Calcium 8.6 Phosphorus 3.7 Magnesium 2.4 Urine Color Dark Yellow Urine Appearance Clear Urine pH 5.5 Ur Specific [place] 1.024 Urine Protein Negative Urine Glucose (UA) Negative Urine Ketones Trace H Urine Blood Negative Urine Nitrite Negative Ur Leukocyte Esterase Negative PG Care Time/CCT Total # of Minutes Spent Total Time Spent with Patient: Total time spent is greater than 50% in coordination of care (as documented) at patient's floor/unit and/or counseling patient: Coding Level of Care Code 29361 Inpt Consult Level 5 Diagnoses Acute kidney injury N17.9 CKD (chronic kidney disease) N18.9
--- NOTE | 2021-03-17 12:22 | Electrocardiogram Report ---
Test Reason : Blood Pressure : / mmHG Vent. Rate : 118 BPM Atrial Rate : 118 BPM P-R Int : 158 ms QRS Dur : 086 ms QT Int : 340 ms P-R-T Axes : 053 021 068 degrees QTc Int : 476 ms Sinus tachycardia Nonspecific T wave abnormality Abnormal ECG When compared with ECG of 10-JAN-2021 11:55, Vent. rate has increased BY 47 BPM T wave inversion no longer evident in Anterior leads Confirmed by Dayron Ya ([id number]) on 03/17/2021 12:22:19 PM Referred By: REFERRED SELF Confirmed By:Daryon Ya
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
[2021-03-17] MEDS ORDERED: GADOBUTROL 65ML VIAL IV ONE (17:28)
--- NOTE | 2021-03-17 17:53 | Magnetic Resonance Report ---
MRI OF THE BRAIN COMBO CLINICAL HISTORY: Change in mental status. COMPARISON STUDY: CT of the brain dated 03/16/2021. MRI of the brain dated 01/10/2021. TECHNIQUE: MRI of the brain was performed utilizing various T1 and T2-weighted sequences in the axial , sagittal, and coronal planes. Contrast-enhanced sequences were acquired following the administratio n of 9.4 cc of Gadavist. FINDINGS: Brain parenchyma: There is mild to moderate patchy subcortical and periventricular microangiopathic c hange. There is no hemorrhage or mass effect. There is no restricted diffusion to suggest acute ische pernell. No enhancing mass lesion is identified on the postcontrast images. [place]-white matter differentia tion is preserved. No extra-axial fluid collection is seen. The cerebellar tonsils are normal in conf iguration. Ventricles, sulci, and cisterns: Normal in configuration. Pituitary and sella: Unremarkable. Intracranial vasculature: Normal flow voids are maintained at the skull base. Orbits: The bony orbits are grossly intact. Orbital contents are normal in appearance. Sinuses and mastoids: There is trace right mastoid effusion. The left mastoid air cells and the paran luisa sinuses are clear. Calvarium: Unremarkable. Cervical cord: Partially visualized cervical spinal cord is normal in morphology and signal intensity . IMPRESSION: No intracranial abnormality is identified. ACT 112: Negative or not required by law. Electronically signed by: Papa Flores M.D. 03/17/2021 5:51 PM
--- NOTE | 2021-03-17 19:28 | Billing Data ---
Date of Service March 17, 2021 Coding Level of Care Code Critical Care 1st - mins
--- NOTE | 2021-03-17 20:23 | Hospitalist Progress Note ---
Date of Service March 17, 2021 Assessment & Plan (1) Bipolar 1 disorder, mixed: Plan: unsure if he was taking medications resume Seroquel 50mg HS, hold Invega for now can use Zyprexa and Ativan PRN 302 on chart plan for inpatient psychiatric stay (2) Delirium: Plan: very agitated and aggressive on 03/16 was threatening to kidnap mother in law, she feared for her life police called, brought to the ED by EMS required Ketamine in the ambulance, in the ED he needed to be intubated because of how much sedation he required now extubated and calm but does not remember yesterday brother requesting neurologic work up, in the past 6 months he has needed inpatient psychiatric care about 15 times MRI brain - no abnormality will consult neurology, brother has concerns for limbic encephalitis, menin gitis? discussed that there is no clear evidence of this, he knows it is unlikely will try to coordinate LP with radiology tomorrow, might need sedation so will need to assess mental status (3) Aggressive behavior: Plan: very calm today after extubation Seroquel HS, Ativan and Zyprexa PRN (4) Acute kidney injury: Plan: h/o right nephrectomy for renal cell CA Cr was 1.8, down to 1.5 after fluids appreciate nephrology consult (5) Acute respiratory acidosis: Plan: resolved after mechanical ventilation now extubated, breathing well (6) CAP (community acquired pneumonia): Plan: possible infiltrate in lung bases continue Rocephin for now Plan: move to medical floor neurology consult attempt LP if he will cooperate eventually will need 302 psychiatric commitment Admission and Anticipated Discharge Date Admission Date: March 16, 2021 Subjective patient calm this morning on Precedex, he was extubated and Precedex weaned off breathing comfortably, vitals stable after extubation, no fever, no complaints of chest pain, dyspnea, nausea he cannot recall what happened yesterday discussed with Dr. Horvath, he can be downgraded from ICU discussed with Dr. Chatterjee, she knows the patient from prior admissions, he was recently at [facility] for inpatient psychiatric stay she agrees that he needs inpatient psychiatric stay, 302 is warranted, he cannot leave AMA for medications, she is okay with Seroquel 50mg HS but wants to hold other scheduled medications appreciate nephrology consult, has a history of right nephrectomy for renal cell carcinoma long talk with the patient's son as well as his brother, Jb, who is a physician, specialist in Infectious Disease his brother has been the patient's class a truck driver and medical decision maker, he has been having issues since 1992 when he had first manic episode he reports that the patient's living conditions in recent past were terrible, was in a trailer, hoarding the brother had to hire people to clean out the trailer, they had to wear hazmat suits, N95 masks he has concerns that maybe he has an underlying fungal infection, perhaps meningitis he also wants to rule out that this could be a paraneoplastic syndrome from the renal cell carcinoma, causing limbic encephalitis he admits that these possibilities are a long shot he is requesting we get an MRI of the brain and attempt an LP to make sure CSF is clean all he wants is to confirm 100% that there is not some treatable issue causing the psychosis, delirium, agitation he knows he is facing the possibility of correction psychiatric commitment for his brother he is requesting neurology consult for their opinion on this possibility, specifically the limbic encephalitis told him we can attempt the LP but will depend on availability of radiology and possible need for sedation, he understands MRI brain - no intracranial abnormality seen Review of Systems Review of Systems: Unobtainable due to cognitive status (does not recall much from yesterday) Constitutional: + fatigue and + weakness; no fever Respiratory: no cough and no dyspnea Cardiovascular: no chest pain and no edema Gastrointestinal: no abdominal pain, no nausea, no vomiting, no constipation and no diarrhea/loose stools Physical Exam Physical Exam: General: well developed, well nourished, no acute distress, comfortable Neck: supple, trachea midline, normal thyroid Lungs: clear to auscultation bilaterally, normal respiratory effort, no accessory muscle use, no distress Heart: regular S1 and S2, no murmur, peripheral pulses normal, capillary refill normal, no edema Abdomen: soft, NT, ND, + BS, no hepatomegaly, normal to percussion Extremities: normal in appearance, no cyanosis, no petechiae, strength is 5/5 bilaterally Neuro: awake, cooperative, moves all extremities, no focal motor deficits, CN II-XII intact, sensation in extremities intact, normal speech Skin: warm, dry, no rash, normal turgor Psych: Awake, alert, oriented to person, unsure of place and time, poor eye contact, poor historian, lacks focus Results & Data Results & Data ([facility]) Vital Signs (Past 12 Hours) Vital Signs Temp Pulse Resp BP Pulse Ox 03/17/21 17:40 37 C 03/17/21 16:00 69 18 99 03/17/21 15:34 77 19 119/79 100 03/17/21 14:37 36.6 C 03/17/21 14:34 72 26 H 120/75 99 03/17/21 13:34 73 22 135/75 98 03/17/21 12:34 36.8 C 69 19 119/75 99 03/17/21 11:34 69 16 115/76 100 03/17/21 11:20 36.6 C 03/17/21 11:00 64 12 99 03/17/21 10:34 67 16 113/73 99 03/17/21 10:00 36.8 C 72 20 100 03/17/21 09:34 36.8 C 55 L 14 91/61 L 100 03/17/21 08:37 36.8 C 59 L 14 91/57 L 99 03/17/21 08:34 36.8 C 54 L 20 81/53 L 98 Laboratory Results Laboratory Results - last 24 hr 03/16/21 03/16/21 03/16/21 19:11 19:40 19:40 WBC RBC Hgb POC Hgb Hct POC Hct MCV MCH MCHC RDW Std Deviation RDW Coeff of Peter Plt Count MPV Immature Gran % (Auto) Neut % (Auto) Lymph % (Auto) Boyle % (Auto) Eos % (Auto) Baso % (Auto) Neut # (Auto) Lymph # (Auto) Boyle # (Auto) Eos # (Auto) Baso # (Auto) Immature Gran # (Auto) Sample Site POC pH POC pCO2 POC pO2 POC HCO3 POC Total CO2 POC Base Excess POC ABG O2 Sat Steve Test O2 Delivery Device POC O2 Rate POC FiO2 Tidal Volume PEEP POC Sodium Sodium POC Potassium Potassium Chloride Carbon Dioxide Anion Gap BUN Creatinine Est Cr Clr Drug Dosing Est GFR ( Amer) Est GFR (Non-Af Amer) BUN/Creatinine Ratio Glucose POC Glucose Lactate Calcium Phosphorus Magnesium Ammonia Procalcitonin Nasal Screen MRSA (PCR) Urine Opiates Screen Neg Ur Methadone, Qual Neg Urine Barbiturates Neg Ur Phencyclidine (PCP) Neg U Amphetamin/Meth Scrn Neg Urine MDEA Pending MDMA (Ecstasy) Screen Pos H MDMA Pending Urine MDMA Pending U Benzodiazepines Scrn Neg Ur Cocaine Metabolite Neg U Marijuana (THC) Screen Neg SARS-CoV-2 (PCR) NEGATIVE 03/16/21 03/16/21 03/16/21 20:08 22:30 22:33 WBC RBC Hgb POC Hgb 12.2 L Hct POC Hct 36 L MCV MCH MCHC RDW Std Deviation RDW Coeff of Peter Plt Count MPV Immature Gran % (Auto) Neut % (Auto) Lymph % (Auto) Boyle % (Auto) Eos % (Auto) Baso % (Auto) Neut # (Auto) Lymph # (Auto) Boyle # (Auto) Eos # (Auto) Baso # (Auto) Immature Gran # (Auto) Sample Site POC pH 7.32 L POC pCO2 53 H POC pO2 121 H POC HCO3 27 H POC Total CO2 29 POC Base Excess 1.0 POC ABG O2 Sat 98.0 H Steve Test O2 Delivery Device POC O2 Rate POC FiO2 Tidal Volume PEEP POC Sodium 143 Sodium POC Potassium 4.0 Potassium Chloride Carbon Dioxide Anion Gap BUN Creatinine Est Cr Clr Drug Dosing Est GFR ( Amer) Est GFR (Non-Af Amer) BUN/Creatinine Ratio Glucose POC Glucose Lactate 1.0 Calcium Phosphorus Magnesium Ammonia Procalcitonin Nasal Screen MRSA (PCR) Negative Urine Opiates Screen Ur Methadone, Qual Urine Barbiturates Ur Phencyclidine (PCP) U Amphetamin/Meth Scrn Urine MDEA MDMA (Ecstasy) Screen MDMA Urine MDMA U Benzodiazepines Scrn Ur Cocaine Metabolite U Marijuana (THC) Screen SARS-CoV-2 (PCR) 03/16/21 03/16/21 03/17/21 22:33 22:33 00:23 WBC RBC Hgb POC Hgb Hct POC Hct MCV MCH MCHC RDW Std Deviation RDW Coeff of Peter Plt Count MPV Immature Gran % (Auto) Neut % (Auto) Lymph % (Auto) Boyle % (Auto) Eos % (Auto) Baso % (Auto) Neut # (Auto) Lymph # (Auto) Boyle # (Auto) Eos # (Auto) Baso # (Auto) Immature Gran # (Auto) Sample Site POC pH POC pCO2 POC pO2 POC HCO3 POC Total CO2 POC Base Excess POC ABG O2 Sat Steve Test O2 Delivery Device POC O2 Rate POC FiO2 Tidal Volume PEEP POC Sodium Sodium POC Potassium Potassium Chloride Carbon Dioxide Anion Gap BUN Creatinine Est Cr Clr Drug Dosing Est GFR ( Amer) Est GFR (Non-Af Amer) BUN/Creatinine Ratio Glucose POC Glucose 128 H Lactate Calcium Phosphorus Magnesium Ammonia 11.1 Procalcitonin < 0.05 Nasal Screen MRSA (PCR) Urine Opiates Screen Ur Methadone, Qual Urine Barbiturates Ur Phencyclidine (PCP) U Amphetamin/Meth Scrn Urine MDEA MDMA (Ecstasy) Screen MDMA Urine MDMA U Benzodiazepines Scrn Ur Cocaine Metabolite U Marijuana (THC) Screen SARS-CoV-2 (PCR) 03/17/21 03/17/21 03/17/21 04:37 05:04 05:04 WBC 10.83 H RBC 3.93 L Hgb 11.3 L POC Hgb Hct 35.0 L POC Hct MCV 89.1 MCH 28.8 MCHC 32.3 RDW Std Deviation 47.8 H RDW Coeff of Peter 14.7 H Plt Count 327 MPV 10.2 Immature Gran % (Auto) 0.2 Neut % (Auto) 68.8 Lymph % (Auto) 19.8 Boyle % (Auto) 8.9 Eos % (Auto) 2.0 Baso % (Auto) 0.3 Neut # (Auto) 7.46 H Lymph # (Auto) 2.14 Boyle # (Auto) 0.96 H Eos # (Auto) 0.22 Baso # (Auto) 0.03 Immature Gran # (Auto) 0.02 Sample Site R Radial POC pH 7.42 POC pCO2 41 POC pO2 118 H POC HCO3 27 H POC Total CO2 28 POC Base Excess 2.0 H POC ABG O2 Sat 99.[address]vee Test Pass O2 Delivery Device Ventilator POC O2 Rate 20 POC FiO2 30 Tidal Volume 450 PEEP 5 POC Sodium Sodium 141 POC Potassium Potassium 3.5 Chloride 107 Carbon Dioxide 29 Anion Gap 5.0 BUN 16 Creatinine 1.50 H D Est Cr Clr Drug Dosing 62.0 Est GFR ( Amer) 58.6 Est GFR (Non-Af Amer) 50.6 BUN/Creatinine Ratio 10.9 Glucose 87 POC Glucose Lactate Calcium 8.6 Phosphorus 3.7 Magnesium 2.4 Ammonia Procalcitonin Nasal Screen MRSA (PCR) Urine Opiates Screen Ur Methadone, Qual Urine Barbiturates Ur Phencyclidine (PCP) U Amphetamin/Meth Scrn Urine MDEA MDMA (Ecstasy) Screen MDMA Urine MDMA U Benzodiazepines Scrn Ur Cocaine Metabolite U Marijuana (THC) Screen SARS-CoV-2 (PCR) 03/17/21 03/17/21 05:58 11:39 WBC RBC Hgb POC Hgb Hct POC Hct MCV MCH MCHC RDW Std Deviation RDW Coeff of Peter Plt Count MPV Immature Gran % (Auto) Neut % (Auto) Lymph % (Auto) Boyle % (Auto) Eos % (Auto) Baso % (Auto) Neut # (Auto) Lymph # (Auto) Boyle # (Auto) Eos # (Auto) Baso # (Auto) Immature Gran # (Auto) Sample Site POC pH POC pCO2 POC pO2 POC HCO3 POC Total CO2 POC Base Excess POC ABG O2 Sat Steve Test O2 Delivery Device POC O2 Rate POC FiO2 Tidal Volume PEEP POC Sodium Sodium POC Potassium Potassium Chloride Carbon Dioxide Anion Gap BUN Creatinine Est Cr Clr Drug Dosing Est GFR ( Amer) Est GFR (Non-Af Amer) BUN/Creatinine Ratio Glucose POC Glucose 89 92 Lactate Calcium Phosphorus Magnesium Ammonia Procalcitonin Nasal Screen MRSA (PCR) Urine Opiates Screen Ur Methadone, Qual Urine Barbiturates Ur Phencyclidine (PCP) U Amphetamin/Meth Scrn Urine MDEA MDMA (Ecstasy) Screen MDMA Urine MDMA U Benzodiazepines Scrn Ur Cocaine Metabolite U Marijuana (THC) Screen SARS-CoV-2 (PCR) Medications Administered Current Inpatient Medications Famotidine (Famotidine 20 Mg Tab) 20 mg PO DAILY [facility] Stop: 04/16/21 08:59 Last Admin: 03/17/21 09:09 Dose: 20 mg Documented by: Heparin Sodium (Porcine) (Heparin Sod 5,000 Unit/0.5 Ml Vial) 5,000 units SQ Q12 JACLYN Stop: 04/16/21 08:59 Last Admin: 03/17/21 07:56 Dose: 5,000 units Documented by: Ceftriaxone Sodium 2,000 mg/ (Dextrose) 70 mls @ 140 mls/hr IV Q24H [facility] Stop: 03/24/21 00:00 Last Infusion: 03/16/21 23:44 Dose: Infused Documented by: Dexmedetomidine HCl 400 mcg/ (Sodium Chloride) 100 mls @ 0 mls/hr IV .Q0M [facility]; Protocol Stop: 03/21/21 07:29 Last Titration: 03/17/21 10:00 Dose: 0 mcg/kg/hr, 0 mls/hr Documented by: Lorazepam (Lorazepam 1 Mg Tab) 1 mg PO TID PRN PRN Reason: Anxiety Stop: 04/16/21 08:11 Miscellaneous (Icu Protocol For Hyperglycemia) 1 ea N/A PRN PRN; Protocol PRN Reason: Hyperglycemia Protocol Stop: 03/18/21 22:41 Olanzapine (Olanzapine 10 Mg/2.1 Ml Sdv) 5 mg IM Q12 PRN PRN Reason: Agitation Stop: 04/16/21 08:07 Paliperidone (Paliperidone 3 Mg Tabcr) 9 mg PO DAILY JACLYN Stop: 04/16/21 08:59 Last Admin: 03/17/21 09:09 Dose: 9 mg Documented by: Quetiapine Fumarate (Quetiapine Fumarate 25 Mg Tablet) 50 mg PO HS JACLYN Stop: 04/16/21 20:59 Tamsulosin HCl (Tamsulosin Hcl 0.4 Mg Cap) 0.4 mg PO HS JACLYN Stop: 04/16/21 20:59 Thiamine HCl (Thiamine Hcl 100 Mg Tab) 100 mg PO QAM JACLYN Stop: 04/16/21 08:59 Last Admin: 03/17/21 09:09 Dose: 100 mg Documented by: PG Care Time/CCT Total # of Minutes Spent Total Time Spent with Patient: Total time spent is greater than 50% in coordination of care (as documented) at patient's floor/unit and/or counseling patient: Coding Level of Care Code 81072 Subseq Hosp Care Lvl 3 Diagnoses Delirium R41.0 Acute respiratory acidosis E87.2 CAP (community acquired pneumonia) J18.9 Bipolar 1 disorder, mixed F31.60 Aggressive behavior R46.89 Acute kidney injury N17.9
[2021-03-17] MEDS: QUEtiapine FUMARATE 25 MG TABLET PO SCH (20:24)
[2021-03-17] MEDS: TAMSULOSIN HCL 0.4 MG CAP PO SCH (20:24)
[2021-03-17] MEDS: LORazepam 1 MG TAB PO PRN (22:32)
[2021-03-17] MEDS: cefTRIAXone SODIUM 2,000 MG in DEXTROSE 5% 50 ML IV SCH (23:25)
[2021-03-18 06:19] LABS: Basophils # (auto) 0.04 K/uL (0-0.2); Basophils % (auto) 0.5 %; Eosinophils # (auto) 0.27 K/uL (0-0.5); Eosinophils % (auto) 3.2 %; Hematocrit (blood only) 34.2 % (42-52); Hemoglobin 11.1 g/dL (14.0-18.0); Immature Granulocytes # (auto) 0.01 K/uL (0.00-0.02); Immature Granulocytes % (auto) 0.1 %; Lymphocytes # (auto) 2.22 K/uL (1.2-3.4); Lymphocytes % (auto) 26.6 %; Mean Corpuscular Hemoglobin 28.5 pg (25-34); Mean Corpuscular Hgb Conc 32.5 g/dL (32-36); Mean Corpuscular Volume 87.7 fL (80-100); Mean Platelet Volume 10.5 fL (7.4-10.4); Monocytes # (auto) 0.74 K/uL (0.11-0.59); Monocytes % (auto) 8.9 %; Neutrophils # (auto) 5.07 K/uL (1.4-6.5); Neutrophils % (auto) 60.7 %; Platelet Count 316 K/uL (130-400); RDW Coefficient of Variation 15.1 % (11.5-14.5); RDW Standard Deviation 48.3 fL (36.4-46.3); White Blood Count 8.35 K/uL (4.8-10.8)
[2021-03-18 06:52] LABS: Calcium 8.8 mg/dl (8.5-10.1); Creatinine Clr Calc Pharmacy 55.6 ml/min; Est GFR (African American) 51.9 ml/min; Est GFR (Non-African American) 44.8 ml/min; Magnesium 2.2 mg/dl (1.8-2.4); Phosphorus 4.2 mg/dl (2.5-4.9); Potassium 4.1 mmol/L (3.5-5.1)
[2021-03-18] MEDS: FAMOTIDINE 20 MG TAB PO SCH (09:24)
[2021-03-18] MEDS: THIAMINE HCL 100 MG TAB PO SCH (09:24)
--- NOTE | 2021-03-18 09:51 | Neurology Consultation ---
Date of Consultation March 18, 2021 Assessment & Plan (1) Altered mental status: (2) Bipolar 1 disorder, mixed: (3) ADD (attention deficit disorder): (4) Depression: (5) REM behavioral disorder: (6) Chronic cerebral ischemia: this is a complicated patient from a psychiatric standpoint, with multiple diagnoses over time. Does have bipolar disorder, ADHD, depression and some psychosis at times. He is followed very closely by Psychiatry. The patient had significant agitation (which was a new or presentation for him) on January 14. He was restless, confused, and combative. This has resolved and he has been off his psychiatric medication , except for lorazepam and 50 mg Seroquel at bedtime. The patient on examination today is come and shows no signs of dementia or delirium. He is fairly cooperative as well. He has extrapyramidal side effects with significant bradykinesia and some cogwheel rigidity of the arms. He also has some mild postural and action tremor ( no rest tremor ). This is probably from the Paliperidone and quetiapine. it is a little more prominent now than it was back in January of 2021. I do not believe there is any clinical evidence to suggest an encephalitis. Over 80% of cases of limbic encephalitis will show changes on MRI. The patient's MRI of the brain with without contrast was quite normal. The patient has a history of renal cell carcinoma post nephrectomy in January of 2021. Certainly, renal cell carcinoma can cause paraneoplastic syndrome but typically does not cause a paraneoplastic encephalitis. Most renal cell paraneoplastic syndromes are seronegative (for antibodies/biomarkers). The patient does have some mild chronic cerebral ischemia suggestive of small vessel ischemic disease. This is stable. In addition, he has mild obstructive sleep apnea and REM behavioral disorder and is supposed to be on CPAP for this. Clonazepam at bedtime helped his sleep behavioral and dream issues. Recommendations 1. LP is scheduled for today. In addition to the routine studies ( cell counts, chemistry, cultures, cytology)include MS profile 1, a bio-fire panel and viral titers, as well as anti- HU and anti-MA. 2. Increase activity as able and consider physical and occupational therapy. 3. If the patient is going to remain on neuroleptics he will likely need something to help the extra pyramidal features such as benztropine or trihexyphenidyl 4. encourage medication and CPAP compliance. 5. Please contact me if I can be of further assistance on this case Overall, I spent a total of 130 minutes including review of records, review of CT and MRI films, direct evaluation the patient at bedside, and discussion of t he case with the patient, RN at bedside, Dr. Chatterjee and Dr. Louie, including differential diagnosis and treatment options. History of Present Illness Reason for Consultation: Patient is a 56 year, who I was asked to see at the request of Dr. Louie, for neurologic consultation regarding altered mental status. Requesting Physician: Dr. Louie Attending Physician: Endy Louie, DO History of Present Illness Patient has a longstanding history of ADHD, OCD, depression and bipolar disorder as well as some psychosis and hypomanic episodes in the past. He has been followed by Psychiatry and has had multiple psychiatric admissions including October and January of this year. He has been followed by sleep medicine /allergy for allergic rhinitis, a REM behavioral/movement disorder, sleep terror and mild obstructive sleep apnea. He was last evaluated in September of [address] Barbour. CPAP is effective, however he is not compliant with his immunotherapy which had been controlling his seasonal allergies. apparently, clonazepam at bedtime considerably helps his sleep terror and Adderall had been helping his excessive daytime sleepiness. I saw this patient in January of this year. At that time he had altered mental status with confusion but my evaluation was more consistent with willful/ volitional behavior issues as opposed to encephalopathy or dementia. He had no focal findings on exam although he had some mild bradykinesia likely due to Seroquel. There was no other parkinsonism or tremor. At that time, MRI of the brain was unremarkable and an EEG was normal. Laboratory studies were unrevealing. The patient had had over 50 lb of weight loss over the last couple of years and was noted to have a right renal mass. 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 Apparently there were no other signs of metastases or tumor. At that time there was a consideration of paraneoplastic syndrome and an LP was suggested but not performed. The patient then spent 2 weeks on the psychiatric service being discharged on February 06. He went to live with a cousin in [place], [place] but this did not work out and he ended up being hospitalized for psychiatric reasons in [facility] in [place], [place], from March 06 through March 13. He was somewhat agitated then and was noted to be not taking his medications. 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 they discharged him on 9 mg Invega daily with Seroquel 50 mg at bedtime Patient was brought to the emergency room here on March 16 for bizarre behavior, agitation, restlessness, confusion, and combativeness. Apparently he was trying to "kidnapped" his [id number]. The patient remembers that he was having an argument with his [id number] in the car. When he arrived at 1839, he was afebrile, blood pressure 130/80, pulse in the 130s, respiratory rate 28, and O2 saturation 98%. He was so disoriented and agitated that he ended up being intubated for a day and then was extubated again. He was very dissociated not following commands. Laboratory studies revealed an elevated creatinine and glucose of 166. white count was slightly decreased with elevated neutrophils and he had some leftover signs of pneumonia on chest x-ray. CT scan of the head was unremarkable. MRI of the brain revealed some mild old small vessel ischemic disease is before but showed no acute changes with and without contrast. There was no temporal lobe (or other ) hyperintensities or abnormalities noted. I reviewed these films. The patient today has no complaint of pain or headache and is pleasant and cooperative. Pulse is 106 this morning a blood pressure 132/79. There is mild anemia on CBC and Chem profile shows a mildly elevated creatinine Allergies Allergy/AdvReac Type Severity Reaction Status Date / Time hydrocodone AdvReac Intermediate BECOMES Verified 01/10/21 14:23 MANIC naproxen AdvReac Mild RECTAL Verified 01/10/21 14:23 BLEEDING WITH EXTENDED USE Home Medications Medication Instructions Recorded Confirmed Type amlodipine 5 mg tablet (Norvasc) 5 mg PO QAM 30 Days #30 tab 02/05/21 03/16/21 Rx loratadine 10 mg tablet (Claritin) 10 mg PO DAILY 30 Days #30 tab 02/05/21 03/16/21 Rx mirtazapine 30 mg tablet 30 mg PO HS 30 Days #30 tab 02/05/21 03/16/21 Rx tamsulosin 0.4 mg capsule (Flomax) 0.4 mg PO HS 30 Days #30 cap 02/05/21 03/16/21 Rx thiamine HCl (vitamin B1) 100 mg 100 mg PO QAM 30 Days #30 tab 02/05/21 03/16/21 Rx tablet (Vitamin B-1) bupropion HCl 150 mg 24 hr tablet, 150 mg PO QAM 03/16/21 03/16/21 History extended release famotidine 40 mg tablet (Pepcid) 20 mg PO DAILY 03/16/21 03/16/21 History lorazepam 1 mg tablet (Ativan) 1 mg PO TID PRN 03/16/21 03/16/21 History paliperidone 3 mg tablet,extended 3 mg PO DAILY 03/16/21 03/16/21 History release 24 hr (Invega) paliperidone 6 mg tablet,extended 6 mg PO DAILY 03/16/21 03/16/21 History release 24 hr (Invega) quetiapine 50 mg tablet (Seroquel) 50 mg PO HS 03/16/21 03/16/21 History Patient History Medical History ADD (attention deficit disorder) Bipolar depression Cluster headache Confusion Hypertension Medial meniscus tear Renal mass Surgical History H/O arthroscopic knee surgery History of rotator cuff surgery Family History Mother Lymphoma Father Prostate cancer Grandmother (Maternal) Hypertension Other Diabetes Social History Smoking Status: Never smoker Second Hand Exposure: No; Hx Alcohol Use: Yes Hx Substance Use: No Preferred Language: Wolof Communication Ability: Effective Director Index Required: No Beliefs That Will Affect Care: None marital status: Current Living Situation: Parent Current Living Situation Comment: lives with father Feels Safe at Home: Yes Assistive Devices: Glasses Review of Systems Constitutional: no fever, no fatigue and no weakness Eyes: no diplopia, no eye pain and no worsening vision Ear, Nose, Mouth, Throat: no ear pain, no tinnitus, no hearing loss, no dizziness, no snoring, no hoarseness and no dysphagia Respiratory: no cough and no dyspnea Cardiovascular: no chest pain, no palpitations and no lightheadedness Gastrointestinal: no abdominal pain, no nausea and no vomiting Musculoskeletal: no back pain, no neck pain, no radicular pain, no joint pain and no myalgia Integumentary: no rash and no lesions Neurologic: no gait abnormality, no localized weakness, no generalized weakness, no tingling, no numbness, no tremor(s), no abnormal movements, no headache(s), no abnormal speech, no confusion and no memory loss Psychiatric: no depression, no irritability, no anxiety, no difficulty concentrating, no confusion and no hallucinations Endocrine: no fatigue and no flushing Hematologic / Lymphatic: no easy bleeding and no easy bruising Allergy / Immunological: no urticaria and no problem reported Exam (Neuro) Physical Exam: The patient is right-handed. The patient is awake, alert, and attentive. Speech is sparse and he will only answer short phrases or words when spoken to. There is no obvious aphasia or dysarthria. He tends to look down and not make eye contact unless forced. The patient can name objects, repeat phrases, and do calculations quickly. mood is somewhat depressed and affect is flat. Memory long-term seems reasonable to conversation. He has a gap of memory coming to the hospital but otherwise conversationally remembers short-term events. Pupils are 4 mm bilaterally and reactive to light. Extraocular eye muscles are intact without nystagmus. Visual acuity and visual trotter seem normal grossly to confrontation. There are no deficits to sensation in the face in all 3 distributions of the fifth cranial nerve bilaterally. Corneal reflexes are positive bilaterally. Facial strength and symmetry was normal bilaterally. Hearing seems normal bilaterally. Palate moves well without asymmetry. There is normal sternocle idomastoid and trapezius (shoulder shrug) strength bilaterally. Tongue is midline with good strength bilaterally. Neck Is somewhat rigid, but has a full range of motion without discomfort. There are no cervical bruits bilaterally. There are no cranial or ocular bruits. Heart is without murmur. There is a regular rhythm and rate. Cervical, thoracic, and lumbar spine are nontender to palpation. Gait is narrow based, with only some arm swing. Turns are reasonable and stance is unremarkable. With outstretched arms there is no drift. There are no resting tremors. the patient has mild postural and action tremor bilaterally. There is no ataxia with finger to nose testing. There is good facility in the hands. No other abnormal involuntary movements are noted. Motor strength is 5/5 diffusely in the arms bilaterally including deltoids, biceps, triceps, brachioradialis, wrist flexors and extensors, delivery man, and intrinsic hand muscles. Motor strength is 5/5 diffusely in the legs bilaterally including hip flexors, quadriceps, hamstrings, gastrocnemius, tibialis anterior, tibialis posterior, and Peroneii muscles. Toe extensors are normal and there is good bulk in the extensor digitorum brevis muscles bilaterally. The limbs have good tone without rigidity or spasticity. There is no atrophy noted in the muscles. Muscle bulk is normal, there is no tenderness to palpation, no myotonia to percussion, and no fasciculations seen. Sensory examination is intact to touch and pin throughout all 4 limbs diffusely. Reflexes are 1/4 in the biceps, triceps, brachioradialis, quadriceps, and Achilles tendons bilaterally. There is no clonus bilaterally. Toes are downgoing with plantar stimulation bilaterally. Peripheral pulses are present and of normal quality distally in all 4 limbs. There is no peripheral edema noted in the limbs. Results & Data ([facility]) Vital Signs (Past 12 Hours) Vital Signs Temp Pulse Resp BP Pulse Ox 03/17/21 23:29 106 H 132/79 03/17/21 22:21 36.9 C 130 H 20 171/93 H 94 PG Care Time/CCT Total # of Minutes Spent Total Time Spent with Patient: Total time spent is greater than 50% in coordination of care (as documented) at patient's floor/unit and/or counseling patient: Coding Level of Care Code 46984 Inpt Consult Level 5 Diagnoses Bipolar 1 disorder, mixed F31.60 ADD (attention deficit disorder) F98.8 Depression F32.9 Depression Type: unspecified REM behavioral disorder G47.52 Chronic cerebral ischemia I67.82 Altered mental status R41.82 (1) Depression Depression Type: unspecified Qualified Code(s): F32.9 - Major depressive disorder, single episode, unspecified
[2021-03-18] MEDS: LORazepam 1 MG TAB PO PRN (10:11)
[2021-03-18] MEDS ORDERED: LORazepam 1 MG/2 ML VIAL IV STA (11:01)
--- NOTE | 2021-03-18 11:05 | Communication Note ---
Date of Service: March 18, 2021 interim progress reviewed, no recurrence of agitation, patient is cooperative with medical work up. Case reviewed with Dr. Jean as scheduled for LP this a fternoon. Patient will be assessed for 201 vs 302 completion when medically cleared. Continue to hold antidepressants and Invega.
--- NOTE | 2021-03-18 14:20 | Fluoroscopy Report ---
FLUOROSCOPICALLY GUIDED LUMBAR PUNCTURE CLINICAL HISTORY: Delirium, agitation FLUOROSCOPY TIME: 0.4 minutes. NUMBER OF FLUOROSCOPIC IMAGES: 2 PROCEDURE: The procedure, risks and benefits were discussed with the patient's son and the patient i ncluding the risk of spinal headache, bleeding and infection. They both agreed to the procedure and i nformed written consent was obtained. The procedure was performed by Dr. Lind following a timeou t. The right L5-S1 interlaminar space was targeted. Skin overlying the space was prepped and draped i n sterile fashion and local anesthesia was achieved with 1% lidocaine. Under intermittent fluoroscopi c guidance, a 5 inch, 22-gauge spinal needle was directed into the thecal sac with immediate return o f clear CSF. A total of 8 cc of cerebrospinal fluid was collected in 4 vials and sent to laboratory a s ordered. The needle was removed. The patient tolerated the procedure well and no immediate complica tions were evident. IMPRESSION: Successful fluoroscopically guided lumbar puncture with collection of 8 cc of CSF which w as sent to the laboratory for analysis as ordered. ACT 112: Negative or not required by law. Electronically signed by: Vaughn Lind M.D. 03/18/2021 2:19 PM
[2021-03-18 14:22] LABS: Appearance CSF Clear; CSF Count Tube # 3; CSF Xanthrochromic No xanthochromia; Color CSF Colorless
[2021-03-18 14:23] LABS: Red Blood Cell CSF (A) 0 /uL (0-); Red Blood Cell CSF (B) 0 /uL (0-); White Blood Cell CSF (A) 2 /uL (0-5); White Blood Cell CSF (B) 2 /uL (0-5)
[2021-03-18 14:37] LABS: CSF Glucose 56 mg/dl (40-70)
[2021-03-18 15:09] LABS: CSF Chemistry Tube # 2
[2021-03-18 16:59] LABS: Cryptococcus neoformans/ga PCR Not Detected (NotDetected); Cytomegalovirus PCR Not Detected (NotDetected); Enterovirus PCR Not Detected (NotDetected); Escherichia coli K1 PCR Not Detected (NotDetected); Haemophilius influenzae PCR Not Detected (NotDetected); Herpes Simplex Virus 1 PCR Not Detected (NotDetected); Herpes Simplex Virus 2 PCR Not Detected (NotDetected); Human Herpes Virus 6 PCR Not Detected (NotDetected); Human Parechovirus PCR Not Detected (NotDetected); Listeria monocytogenes PCR Not Detected (NotDetected); Neisseria meningitidis PCR Not Detected (NotDetected); Streptococcus agalactiae PCR Not Detected (NotDetected); Streptococcus pneumoniae PCR Not Detected (NotDetected); Varicella Zoster Virus PCR Not Detected (NotDetected)
[2021-03-18] MEDS: QUEtiapine FUMARATE 25 MG TABLET PO SCH (21:10)
[2021-03-18] MEDS: TAMSULOSIN HCL 0.4 MG CAP PO SCH (21:10)
--- NOTE | 2021-03-18 22:12 | Hospitalist Progress Note ---
Date of Service March 18, 2021 Assessment & Plan (1) Bipolar 1 disorder, mixed: Plan: unsure if he was taking medications resume Seroquel 50mg HS, hold Invega for now can use Zyprexa and Ativan PRN 302 on chart plan for inpatient psychiatric stay once neurologic work up complete calm and cooperative today (2) Delirium: Plan: very agitated and aggressive on 03/16 was threatening to kidnap mother in law, she feared for her life police called, brought to the ED by EMS required Ketamine in the ambulance, in the ED he needed to be intubated because of how much sedation he required now extubated and calm for two days brother requesting neurologic work up, in the past 6 months he has needed inpatient psychiatric care about 15 times MRI brain - no abnormality LP today, follow up numerous serologies, cultures appreciate neurologic consultation from Dr. Jean (3) Aggressive behavior: Plan: very calm past 36 hours Seroquel HS, Ativan and Zyprexa PRN (4) Acute kidney injury: Plan: h/o right nephrectomy for renal cell CA Cr was 1.8, down to 1.5 after fluids appreciate nephrology consult (5) Acute respiratory acidosis: Plan: resolved after mechanical ventilation now extubated, breathing well (6) CAP (community acquired pneumonia): Plan: possible infiltrate in lung bases continue Rocephin for now Plan: await results of LP plan for 201 or 302 commitment Admission and Anticipated Discharge Date Admission Date: March 16, 2021 Subjective patient calm and cooperative today, complied with LP with radiology appreciate neurology consult, d/w Dr. 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 Chatterjee, once neurologic work up complete will proceed with 201 or 302 commitment eating well, breathing well, no chest pain, no fever Review of Systems Review of Systems: All systems reviewed & are unremarkable except as noted in Subjective Physical Exam Physical Exam: General: well developed, well nourished, no acute distress, comfortable Neck: supple, trachea midline, normal thyroid Lungs: clear to auscultation bilaterally, normal respiratory effort, no accessory muscle use, no distress Heart: regular S1 and S2, no murmur, peripheral pulses normal, capillary refill normal, no edema Abdomen: soft, NT, ND, + BS, no hepatomegaly, normal to percussion Extremities: normal in appearance, no cyanosis, no petechiae, strength is 5/5 bilaterally Neuro: awake, cooperative, moves all extremities, no focal motor deficits, CN II-XII intact, sensation in extremities intact, normal speech Skin: warm, dry, no rash, normal turgor Psych: Awake, alert, oriented to person, unsure of place and time, poor eye contact, poor historian, lacks focus Results & Data Results & Data ([facility]) Vital Signs (Past 12 Hours) Vital Signs Temp Pulse Resp BP BP Pulse Ox 03/18/21 17:50 36.7 C 74 16 119/78 98 03/18/21 14:18 37.0 C 70 16 100/62 97 Laboratory Results Laboratory Results - last 24 hr 03/18/21 03/18/21 03/18/21 05:32 05:32 05:32 WBC 8.35 RBC 3.90 L Hgb 11.1 L Hct 34.2 L MCV 87.7 MCH 28.5 MCHC 32.5 RDW Std Deviation 48.3 H RDW Coeff of Peter 15.1 H Plt Count 316 MPV 10.5 H Immature Gran % (Auto) 0.1 Neut % (Auto) 60.7 Lymph % (Auto) 26.6 Crosby % (Auto) 8.9 Eos % (Auto) 3.2 Baso % (Auto) 0.5 Neut # (Auto) 5.07 Lymph # (Auto) 2.22 Crosby # (Auto) 0.74 H Eos # (Auto) 0.27 Baso # (Auto) 0.04 Immature Gran # (Auto) 0.01 Sodium 142 Potassium 4.1 D Chloride 108 H Carbon Dioxide 29 Anion Gap 5.0 BUN 18 Creatinine 1.66 H Est Cr Clr Drug Dosing 55.6 Est GFR ( Amer) 51.9 Est GFR (Non-Af Amer) 44.8 BUN/Creatinine Ratio 11.0 Glucose 91 Calcium 8.8 Phosphorus 4.2 Magnesium 2.2 Procalcitonin 0.07 Fluid Comment CSF Appearance CSF Color Xanthrochromic CSF WBC CSF RBC CSF Cell Count Tube # CSF Mononuclear WBCs % CSF Chemistry Tube # CSF Glucose CSF Total Protein CSF VDRL CSF Lyme IgG (Immblot) CSF Lyme IgG Bands Det CSF Lyme IgM (Immblot) CSF Lyme IgM Bands Det CSF C.neoform/gat PCR CSF CMV DNA (PCR) CSF Enterovirus (PCR) CSF E. coli K1 (PCR) CSF H. influenzae (PCR) CSF HSV I (PCR) CSF HSV II (PCR) CSF HHV 6 (PCR) CSF L.monocytogenes PCR CSF N. meningitidis PCR CSF Parechovirus (PCR) CSF S. agalactiae (PCR) CSF S. pneumoniae (PCR) CSF VZV DNA (PCR) CSF West Nile IgM Ab CMV Specimen Source CMV Qnt PCR IU/mL CMV Qnt PCR log IU/mL Enterovirus Source Enterovirus RNA RT-PCR EBV Source EBV DNA, Quant EBV DNA (PCR) Herpes Virus Source HSV I DNA PCR HSV II DNA PCR Herpesvirus 6 Source HHV-6 DNA (PCR) Varicella-Zoster Source VZV DNA (PCR) Miscellaneous Test 03/18/21 03/18/21 03/18/21 13:54 13:54 13:54 WBC RBC Hgb Hct MCV MCH MCHC RDW Std Deviation RDW Coeff of Peter Plt Count MPV Immature Gran % (Auto) Neut % (Auto) Lymph % (Auto) Crosby % (Auto) Eos % (Auto) Baso % (Auto) Neut # (Auto) Lymph # (Auto) Crosby # (Auto) Eos # (Auto) Baso # (Auto) Immature Gran # (Auto) Sodium Potassium Chloride Carbon Dioxide Anion Gap BUN Creatinine Est Cr Clr Drug Dosing Est GFR ( Amer) Est GFR (Non-Af Amer) BUN/Creatinine Ratio Glucose Calcium Phosphorus Magnesium Procalcitonin Fluid Comment CSF Appearance CSF Color Xanthrochromic CSF WBC CSF RBC CSF Cell Count Tube # CSF Mononuclear WBCs % CSF Chemistry Tube # CSF Glucose CSF Total Protein 54.0 H CSF VDRL Pending CSF Lyme IgG (Immblot) Pending CSF Lyme IgG Bands Det Pending CSF Lyme IgM (Immblot) Pending CSF Lyme IgM Bands Det Pending CSF C.neoform/gat PCR CSF CMV DNA (PCR) CSF Enterovirus (PCR) CSF E. coli K1 (PCR) CSF H. influenzae (PCR) CSF HSV I (PCR) CSF HSV II (PCR) CSF HHV 6 (PCR) CSF L.monocytogenes PCR CSF N. meningitidis PCR CSF Parechovirus (PCR) CSF S. agalactiae (PCR) CSF S. pneumoniae (PCR) CSF VZV DNA (PCR) CSF West Nile IgM Ab CMV Specimen Source CMV Qnt PCR IU/mL CMV Qnt PCR log IU/mL Enterovirus Source Enterovirus RNA RT-PCR EBV Source EBV DNA, Quant EBV DNA (PCR) Herpes Virus Source Cancelled HSV I DNA PCR Cancelled HSV II DNA PCR Cancelled Herpesvirus 6 Source Cancelled HHV-6 DNA (PCR) Cancelled Varicella-Zoster Source VZV DNA (PCR) Miscellaneous Test 03/18/21 03/18/21 03/18/21 13:54 13:54 13:54 WBC RBC Hgb Hct MCV MCH MCHC RDW Std Deviation RDW Coeff of Peter Plt Count MPV Immature Gran % (Auto) Neut % (Auto) Lymph % (Auto) Crosby % (Auto) Eos % (Auto) Baso % (Auto) Neut # (Auto) Lymph # (Auto) Crosby # (Auto) Eos # (Auto) Baso # (Auto) Immature Gran # (Auto) Sodium Potassium Chloride Carbon Dioxide Anion Gap BUN Creatinine Est Cr Clr Drug Dosing Est GFR ( Amer) Est GFR (Non-Af Amer) BUN/Creatinine Ratio Glucose Calcium Phosphorus Magnesium Procalcitonin Fluid Comment CSF Appearance Clear CSF Color Colorless Xanthrochromic No xanthochromia CSF WBC 2 CSF RBC 0 CSF Cell Count Tube # 3 CSF Mononuclear WBCs % CSF Chemistry Tube # 2 CSF Glucose 56 CSF Total Protein CSF VDRL Cancelled CSF Lyme IgG (Immblot) CSF Lyme IgG Bands Det CSF Lyme IgM (Immblot) CSF Lyme IgM Bands Det CSF C.neoform/gat PCR CSF CMV DNA (PCR) CSF Enterovirus (PCR) CSF E. coli K1 (PCR) CSF H. influenzae (PCR) CSF HSV I (PCR) CSF HSV II (PCR) CSF HHV 6 (PCR) CSF L.monocytogenes PCR CSF N. meningitidis PCR CSF Parechovirus (PCR) CSF S. agalactiae (PCR) CSF S. pneumoniae (PCR) CSF VZV DNA (PCR) CSF West Nile IgM Ab CMV Specimen Source CMV Qnt PCR IU/mL CMV Qnt PCR log IU/mL Enterovirus Source Enterovirus RNA RT-PCR EBV Source EBV DNA, Quant EBV DNA (PCR) Herpes Virus Source HSV I DNA PCR HSV II DNA PCR Herpesvirus 6 Source HHV-6 DNA (PCR) Varicella-Zoster Source VZV DNA (PCR) Miscellaneous Test 03/18/21 03/18/21 03/18/21 13:54 14:25 14:25 WBC RBC Hgb Hct MCV MCH MCHC RDW Std Deviation RDW Coeff of Peter Plt Count MPV Immature Gran % (Auto) Neut % (Auto) Lymph % (Auto) Crosby % (Auto) Eos % (Auto) Baso % (Auto) Neut # (Auto) Lymph # (Auto) Crosby # (Auto) Eos # (Auto) Baso # (Auto) Immature Gran # (Auto) Sodium Potassium Chloride Carbon Dioxide Anion Gap BUN Creatinine Est Cr Clr Drug Dosing Est GFR ( Amer) Est GFR (Non-Af Amer) BUN/Creatinine Ratio Glucose Calcium Phosphorus Magnesium Procalcitonin Fluid Comment CSF Appearance CSF Color Xanthrochromic CSF WBC CSF RBC CSF Cell Count Tube # CSF Mononuclear WBCs % CSF Chemistry Tube # CSF Glucose CSF Total Protein CSF VDRL CSF Lyme IgG (Immblot) CSF Lyme IgG Bands Det CSF Lyme IgM (Immblot) CSF Lyme IgM Bands Det CSF C.neoform/gat PCR Not Detected CSF CMV DNA (PCR) Not Detected CSF Enterovirus (PCR) Not Detected CSF E. coli K1 (PCR) Not Detected CSF H. influenzae (PCR) Not Detected CSF HSV I (PCR) Not Detected CSF HSV II (PCR) Not Detected CSF HHV 6 (PCR) Not Detected CSF L.monocytogenes PCR Not Detected CSF N. meningitidis PCR Not Detected CSF Parechovirus (PCR) Not Detected CSF S. agalactiae (PCR) Not Detected CSF S. pneumoniae (PCR) Not Detected CSF VZV DNA (PCR) Not Detected CSF West Nile IgM Ab Cancelled CMV Specimen Source CMV Qnt PCR IU/mL CMV Qnt PCR log IU/mL Enterovirus Source Cancelled Enterovirus RNA RT-PCR Cancelled EBV Source Cancelled EBV DNA, Quant Cancelled EBV DNA (PCR) Cancelled Herpes Virus Source HSV I DNA PCR HSV II DNA PCR Herpesvirus 6 Source HHV-6 DNA (PCR) Varicella-Zoster Source Cancelled VZV DNA (PCR) Cancelled Miscellaneous Test 03/18/21 03/18/21 14:25 14:25 WBC RBC Hgb Hct MCV MCH MCHC RDW Std Deviation RDW Coeff of Peter Plt Count MPV Immature Gran % (Auto) Neut % (Auto) Lymph % (Auto) Crosby % (Auto) Eos % (Auto) Baso % (Auto) Neut # (Auto) Lymph # (Auto) Crosby # (Auto) Eos # (Auto) Baso # (Auto) Immature Gran # (Auto) Sodium Potassium Chloride Carbon Dioxide Anion Gap BUN Creatinine Est Cr Clr Drug Dosing Est GFR ( Amer) Est GFR (Non-Af Amer) BUN/Creatinine Ratio Glucose Calcium Phosphorus Magnesium Procalcitonin Fluid Comment CSF Appearance CSF Color Xanthrochromic CSF WBC CSF RBC CSF Cell Count Tube # CSF Mononuclear WBCs % CSF Chemistry Tube # CSF Glucose CSF Total Protein CSF VDRL CSF Lyme IgG (Immblot) CSF Lyme IgG Bands Det CSF Lyme IgM (Immblot) CSF Lyme IgM Bands Det CSF C.neoform/gat PCR CSF CMV DNA (PCR) CSF Enterovirus (PCR) CSF E. coli K1 (PCR) CSF H. influenzae (PCR) CSF HSV I (PCR) CSF HSV II (PCR) CSF HHV 6 (PCR) CSF L.monocytogenes PCR CSF N. meningitidis PCR CSF Parechovirus (PCR) CSF S. agalactiae (PCR) CSF S. pneumoniae (PCR) CSF VZV DNA (PCR) CSF West Nile IgM Ab CMV Specimen Source Cancelled CMV Qnt PCR IU/mL Cancelled CMV Qnt PCR log IU/mL Cancelled Enterovirus Source Enterovirus RNA RT-PCR EBV Source EBV DNA, Quant EBV DNA (PCR) Herpes Virus Source HSV I DNA PCR HSV II DNA PCR Herpesvirus 6 Source HHV-6 DNA (PCR) Varicella-Zoster Source VZV DNA (PCR) Miscellaneous Test Pending Medications Administered Current Inpatient Medications Famotidine (Famotidine 20 Mg Tab) 20 mg PO DAILY JACLYN Stop: 04/16/21 08:59 Last Admin: 03/18/21 09:24 Dose: 20 mg Documented by: Ceftriaxone Sodium 2,000 mg/ (Dextrose) 70 mls @ 140 mls/hr IV Q24H JACLYN Stop: 03/24/21 00:00 Last Infusion: 03/18/21 00:04 Dose: Infused Documented by: Lorazepam (Lorazepam 1 Mg Tab) 1 mg PO TID PRN PRN Reason: Anxiety Stop: 04/16/21 08:11 Last Admin: 03/18/21 10:11 Dose: 1 mg Documented by: Olanzapine (Olanzapine 10 Mg/2.1 Ml Sdv) 5 mg IM Q12 PRN PRN Reason: Agitation Stop: 04/16/21 08:07 Quetiapine Fumarate (Quetiapine Fumarate 25 Mg Tablet) 50 mg PO HS JACLYN Stop: 04/16/21 20:59 Last Admin: 10/14/21 21:10 Dose: 50 mg Documented by: Tamsulosin HCl (Tamsulosin Hcl 0.4 Mg Cap) 0.4 mg PO HS JACLYN Stop: 04/16/21 20:59 Last Admin: 03/18/21 21:10 Dose: 0.4 mg Documented by: Thiamine HCl (Thiamine Hcl 100 Mg Tab) 100 mg PO QAM JACLYN Stop: 04/16/21 08:59 Last Admin: 03/18/21 09:24 Dose: 100 mg Documented by: PG Care Time/CCT Total # of Minutes Spent Total Time Spent with Patient: Total time spent is greater than 50% in coordination of care (as documented) at patient's floor/unit and/or counseling patient: Coding Level of Care Code 85952 Subseq Hosp Care Lvl 2 Diagnoses Bipolar 1 disorder, mixed F31.60 Delirium R41.0 Aggressive behavior R46.89 Acute kidney injury N17.9 Acute respiratory acidosis E87.2 CAP (community acquired pneumonia) J18.9
[2021-03-18] MEDS: cefTRIAXone SODIUM 2,000 MG in DEXTROSE 5% 50 ML IV SCH (23:19)
[2021-03-19 06:13] LABS: Basophils # (auto) 0.03 K/uL (0-0.2); Basophils % (auto) 0.4 %; Eosinophils # (auto) 0.35 K/uL (0-0.5); Eosinophils % (auto) 4.3 %; Hematocrit (blood only) 34.8 % (42-52); Hemoglobin 11.2 g/dL (14.0-18.0); Immature Granulocytes # (auto) 0.01 K/uL (0.00-0.02); Immature Granulocytes % (auto) 0.1 %; Lymphocytes # (auto) 1.97 K/uL (1.2-3.4); Lymphocytes % (auto) 24.4 %; Mean Corpuscular Hemoglobin 28.6 pg (25-34); Mean Corpuscular Hgb Conc 32.2 g/dL (32-36); Mean Platelet Volume 10.4 fL (7.4-10.4); Monocytes # (auto) 0.72 K/uL (0.11-0.59); Monocytes % (auto) 8.9 %; Neutrophils % (auto) 61.9 %; Platelet Count 291 K/uL (130-400); RDW Standard Deviation 48.4 fL (36.4-46.3); Red Blood Count 3.91 M/uL (4.7-6.1); White Blood Count 8.08 K/uL (4.8-10.8)
[2021-03-19 06:50] LABS: BUN Creatinine Ratio 14.4 (10-20); Creatinine Clr Calc Pharmacy 56.1 ml/min; Est GFR (African American) 52.3 ml/min; Est GFR (Non-African American) 45.1 ml/min; Magnesium 2.2 mg/dl (1.8-2.4)
[2021-03-19] MEDS: FAMOTIDINE 20 MG TAB PO SCH (09:22)
[2021-03-19] MEDS: THIAMINE HCL 100 MG TAB PO SCH (09:22)
[2021-03-19] MEDS: LORazepam 1 MG TAB PO PRN ×2 (09:41→14:36)
--- NOTE | 2021-03-19 12:30 | Discharge Summary ---
Date of Service March 19, 2021 Admission HPI Per Admitting Provider 56-year-old male past medical history significant for ADHD, bipolar disorder, right renal cell carcinoma status post nephrectomy presented to the ER via EMS for severe agitation and combativeness requiring ketamine en route to the hospital. On arrival patient was still extremely aggressive and combative, delirious, and was sedated and intubated by ER provider. Noted initially on vital signs to be in sinus tachycardia, which improved significantly with sedation. On lab work patient was noted to have an elevated WBC count to 12.35, ABG with pH 7.32, CO2 53, HCO3 27. Creatinine elevated at 1.92. UA without s igns of infection, UDS positive for MDMA (patient is on bupropion in the outpatient setting). Alcohol level normal. COVID-19 testing negative. CXR with L>R bilateral pulmonary opacities. On my interview patient was unable to answer questions due to sedation/intubation. Did speak with patient's son over the phone who provided history. The patient was recently discharged from [facility] for psychiatric stay last Monday. He was discharged with some adjustments to his medicines, namely transition from scheduled to as needed benzodiazepines, and the addition of paliperidone to his medication regimen. Today son reports that he seemed agitated and upset around new time, and at first reported that he had not been taking his medicines, but then reported that he has been. Son drove patient over to patient's parents house for dinner, and en route to restaurant for dinner patient became aggressive and combative stating that he wanted to drive and trying to take the keys. Please were called at that time and then EMS was called. Per son patient has had no recent URI symptoms, GI symptoms, UTI symptoms. He reports that he did have his right kidney removed about a month a go due to a large mass that was found later to be cancerous. Principal Diagnosis Bipolar 1 disorder with agitated delirium Discharge Exam General: well developed, well nourished, no acute distress, comfortable Neck: supple, trachea midline, normal thyroid Lungs: clear to auscultation bilaterally, normal respiratory effort, no accessory muscle use, no distress Heart: regular S1 and S2, no murmur, peripheral pulses normal, capillary refill normal, no edema Abdomen: soft, NT, ND, + BS, no hepatomegaly, normal to percussion Extremities: normal in appearance, no cyanosis, no petechiae, strength is 5/5 bilaterally Neuro: awake, cooperative, moves all extremities, no focal motor deficits, CN II-XII intact, sensation in extremities intact, normal speech Skin: warm, dry, no rash, normal turgor Psych: Awake, alert oriented x 3, flat affect, poor eye contact Discharge Data Allergies Allergy/AdvReac Type Severity Reaction Status Date / Time hydrocodone AdvReac Intermediate BECOMES Verified 01/10/21 14:23 MANIC naproxen AdvReac Mild RECTAL Verified 01/10/21 14:23 BLEEDING WITH EXTENDED USE Consultations 03/16/21 19:50 ED Decision to Admit Stat 03/16/21 21:23 Consult Psychiatry Routine 03/16/21 21:30 Consult Nephrology Routine 03/16/21 22:42 Consult Pan Devulcanizer Routine 03/17/21 22:22 Consult Neurology Routine Ordered Studies 03/16/21 18:48 CT head/brain wo con Stat 03/16/21 22:14 US renal/blad retro comp Urgent 03/17/21 13:24 MR brain wo/w con Urgent 03/18/21 07:50 FL lumbar puncture diagnostic Routine Hospital Course (1) Bipolar 1 disorder, mixed: unsure if he was taking medications resumed Seroquel 50mg HS, hold Invega for now, defer to psychiatry on medication regimen once in the [facility] can take Ativan PRN 302 on chart plan for inpatient psychiatric stay, going there today calm and cooperative today (2) Delirium: very agitated and aggressive on 03/16 was threatening to kidnap mother in law, she feared for her life police called, brought to the ED by EMS required Ketamine in the ambulance, in the ED he needed to be intubated because of how much sedation he required now extubated and calm for three days brother requesting neurologic work up, in the past 6 months he has needed inpatient psychiatric care about 15 times MRI brain - no abnormality LP 03/18 - CSF analysis is rather benign, cultures are still pending and serology studies will take about a week to come back d/w Dr. Jean, highly doubtful that this is neurologic given his chronic bipolar disorder typically patients who develop limbic encephalitis have normal mental health history and then suddenly develop delirium, agitation stable to discharge to [facility] (3) Aggressive behavior: very calm past 72 hours Seroquel HS, Ativan PRN (4) Acute kidney injury: h/o right nephrectomy for renal cell CA Cr was 1.8, down to 1.5 after fluids appreciate nephrology consult, 1.5 is likely his baseline now after nephrectomy (5) Acute respiratory acidosis: resolved after mechanical ventilation now extubated, breathing well (6) CAP (community acquired pneumonia): possible infiltrate in lung bases treated with Rocephin while here but no fever, normal WBC, no cough, breathing well stop antibiotics (7) Hypertension: was prescribed Norvasc 5mg outpatient BP stable off of it while here continue to hold, may not need BP medications if BP consistently > 140/90 then could resume Norvasc 5mg daily Total Time Total Time Spent Total Time Spent (In Minutes): 33 minutes Total Time Includes: Examination of the Patient, Discharge Planning, Medication Reconciliation and Communication With Other Providers (spoke with Dr. Chatterjee and Dr. Jean) Discharge Plan Discharge Items Patient Disposition: Transfer Behavioral Health Fac Reason For Visit: ALTERED MENTAL STATUS, INTUBATED Discharge Diagnosis: Bipolar I disorder Agitated delirium Condition on Discharge: Good Goals: transfer to [facility] Activity: Resume your previous activity Non-emergency contact: Primary Care Provider and Psychiatrist Call non-emergency contact if: you have any medication questions Follow-up/Referrals: Pro,Dayron Zamora MD [Primary Care Provider] - Diet: Regular Addtl Attending Provider Instructions: discharge to [facility] Pending Studies at Discharge: Yes Studies:: CSF studies, could take several days to a week Stand-Alone Forms: My [facility] Medications and DC Order Prescriptions: Continued thiamine HCl (vitamin B1) [Vitamin B-1] 100 mg Tablet 100 mg PO QAM 30 Days Qty: 30 RF: 0 tamsulosin [Flomax] 0.4 mg Capsule 0.4 mg PO HS 30 Days Qty: 30 RF: 0 loratadine [Claritin] 10 mg Tablet 10 mg PO DAILY 30 Days Qty: 30 RF: 0 famotidine [Pepcid] 40 mg tablet 20 mg PO DAILY RF: 0 lorazepam [Ativan] 1 mg tablet 1 mg PO TID PRN (Reason: Anxiety) RF: 0 quetiapine [Seroquel] 50 mg tablet 50 mg PO HS RF: 0 Discontinued amlodipine [Norvasc] 5 mg Tablet 5 mg PO QAM 30 Days Qty: 30 RF: 0 mirtazapine 30 mg tablet 30 mg PO HS 30 Days Qty: 30 RF: 0 paliperidone [Invega] 3 mg tablet extended release 24 hr 3 mg PO DAILY RF: 0 paliperidone [Invega] 6 mg tablet extended release 24 hr 6 mg PO DAILY RF: 0 bupropion HCl 150 mg tablet extended release 24 hr 150 mg PO QAM RF: 0 Discharge Orders: Discharge Order (Routine); Ordered 03/19/21 Ordered By: Endy Louie Admission Data Admit Date/Time: 03/16/21 21:23 Attending Provider: Endy Louie Admit Provider: Pily Ortega Primary Care Provider: Dayron Myers Other Providers: Luigi Farooq ; Nadia Jamison ; Lyndsey Chatterjee ; Barbie Valdez ; Albert Crane ; Mynor Jerez ; Jovany Horvath ; Elan Jean Coding Level of Care Code D/C DAY MANAGEMENT >30 MINS Diagnoses Bipolar 1 disorder, mixed F31.60 Delirium R41.0 Aggressive behavior R46.89 Acute kidney injury N17.9 Acute respiratory acidosis E87.2 CAP (community acquired pneumonia) J18.9 Hypertension I10
[2021-03-20 18:21] LABS: MDA negative; MDEA negative; MDMA (Ecstasy) Urine, Confirm negative
[2021-03-23 22:02] LABS: Lyme IgG Band Pattern CSF DNR; Lyme IgG CSF NO BANDS DETECTED; Lyme IgM Band Pattern CSF DNR; Lyme IgM CSF NO BANDS DETECTED; VDRL Qualitative CSF Nonreactive (Nonreactive)
--- NOTE | 2021-03-29 10:41 | Coding Query ---
CODING QUERY To promote full compliance with coding requirements relating to patient care, provider participation is requested in all cases of coder operator uncertainty. Please assist us with the question(s) below: Coding Question(s): Patient with altered mental status and exicital delirium admitted with agressive behavior, AFTAB, respiratory acidosis. Was given Ketamine enroute to the hospital for combativeness and delirium. On arrival to the ED patient still was agitated and was sedated and intubated in the ED. The Discharge Summary states under "Delirium" that patient was intubated because of how much sedation he required due to the Ketamine. ED record stated further "pt received Ketamine - pt required airway management, pt need toxic/OD type workup". Seeking to clarify the reason for the intubation /admission to the Hospital. Patient was subsequently transferred to the [facility] unit after stabilized. Thanks for your help! Christopher Hawk [facility] Physician's Response(s): patient was intubated because of his extreme agitation and delirium, he required significant sedation to calm him down and thus airway protection was needed with intubation so that the sedation could be given safely, this was the safest way to manage the patient at time of admission Principal Diagnosis: "that condition established after study, to be chiefly responsible for occasioning the admission of the patient to the hospital for care." Co-Existing Principal Diagnosis: "when two or more diagnoses equally meet the criteria for principal diagnosis as determined by the circumstances of admission, diagnostic work up, and/or therapy provided, and the Alphabetic Index, Tabular List, or another coding guideline does not provide sequencing direction, any one of the diagnoses may be sequenced first." "When the physician has documented what appears to be a current diagnosis in the body of the record, but has not included the diagnosis in the final diagnostic statement, the physician should be asked whether the diagnosis should be added." (Source Coding [facility] 2 QTR90. p3-4) MAURICIO
== END 2021-03-19 14:50 | DRG 885 ==
LOC: ED 18:42 → 1E 21:23 → SUATTDRO 21:23 → 1E 22:01 → 3E 03-17 20:01

== ENCOUNTER 2021-03-19 13:44 | Inpatient (IN) ==
[~2021-03-19 13:44] MED LIST changes: +ETOMIDATE 2 MG/ML 20 ML VIAL IV ONE; -RAPID SEQUENCE INDUCTION BAG ONE; +ROCURONIUM BROMIDE 10 MG/ML 5 ML VIAL IV ONE
[2021-03-19] MEDS ORDERED: MAGNESIUM HYDROXIDE SUSP 30 ML UDC PO PRN (14:09)
[2021-03-19] MEDS ORDERED: ACETAMINOPHEN 325 MG TAB PO PRN (14:09)
[2021-03-19] MEDS ORDERED: ALUMINUM/MAGNESIUM SUSP 30 ML UDC PO PRN (14:09)
[2021-03-19] MEDS ORDERED: BISMUTH SUBSALICYLATE LIQD 236 ML PO PRN (14:09)
[2021-03-19] MEDS ORDERED: SODIUM CHLORIDE 0.65% NA SOLN 45 ML (OCEAN) PRN (14:09)
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
[2021-03-19] MEDS ORDERED: LORazepam 1 MG TAB PO PRN (15:43)
[2021-03-19] MEDS ORDERED: FLUARIX QUADRIVALENT 0.5 ML SYR IM ONE (16:45)
[2021-03-19] MEDS: TAMSULOSIN HCL 0.4 MG CAP PO SCH (20:08)
[2021-03-19] MEDS ORDERED: QUEtiapine FUMARATE 25 MG TABLET PO SCH (22:00)
[2021-03-20] MEDS ORDERED: ACETAMINOPHEN 325 MG TAB PO PRN (06:38)
[2021-03-20] MEDS ORDERED: BISMUTH SUBSALICYLATE LIQD 236 ML PO PRN (06:38)
[2021-03-20] MEDS ORDERED: MAGNESIUM HYDROXIDE SUSP 30 ML UDC PO PRN (06:38)
[2021-03-20] MEDS ORDERED: hydrOXYzine HCl 25 MG TAB PO PRN ×2 (06:38)
[2021-03-20] MEDS ORDERED: ALUMINUM/MAGNESIUM SUSP 30 ML UDC PO PRN (06:38)
[2021-03-20] MEDS ORDERED: SODIUM CHLORIDE 0.65% NA SOLN 45 ML (OCEAN) PRN (06:38)
[2021-03-20] MEDS: LORATADINE 10 MG TAB PO SCH (08:59)
[2021-03-20] MEDS: CYANOCOBALAMIN 500 MCG TABLET (VITAMIN B-12) PO SCH (08:59)
[2021-03-20] MEDS: FAMOTIDINE 20 MG TAB PO SCH (09:00)
[2021-03-20] MEDS: THIAMINE HCL 100 MG TAB PO SCH (09:00)
--- NOTE | 2021-03-20 16:41 | Psychiatric Progress Note ---
Date of Service March 20, 2021 Impression / Recommendations Shruthi Galeano is a 56 yo male with a history of bipolar disorder, primarily depression who has been unable to function without the structure of work, unable to care for self at [facility], now failed placement with a relative resulting in multiple inpatient hospitalizations this year. He was non adherent with medication and presented with a possible mixed episode of ronald. Records have also raised the question of possible ASD. Diagnostically he presents with very concrete thoughts, flat affect and has difficulty discussing his mood or recent challenges which can all be consistent with ASD. Additionally episode leading to hospital sounds consistent with possible ronald v brief psychotic episode. Discussed medication and treatment options in detail including being able to speak with his family, gathering additional information via screening tools and medication options. He would like to increase his dose of seroquel, which he finds helpful for sleep and anxiety. Discussed risks, benefits, alternatives including movement side effects (dystonia and what to do if this occurs, TD, akathisia) as well as metabolic risks (diabetes, heart disease, stroke, ) and need to order new fasting lipid labs. AIMS =0. --MNPR due to aggression (1) Bipolar 1 disorder, mixed: 03/20/21: Increase seroquel to 100mg qhs which patient consented to. Provided with screening questionnaires for OCD (Y-BOCS), BPD (mood disorder questionnaire), depression (PHQ-9) and anxiety (JAREK-7). He twice threw away most questionnaires but did fill out the Y-BOCS which noted some obsessions but few compulsions. 03/19/21: The patient was admitted to the [facility] ([facility] inpatient mental health unit) on q15 min checks (behavioral with suicide precautions) for safety. The patient will participate in group, recreational, and milieu therapies and will be offered additional individual and family sessions as clinically appropriate. Continue Seroquel this hs. Consider Latuda trial. Will need to discuss options for longer term hospitalization with family and treatment team. MNPR due to recent aggression. Inventory Assets Strengths: intelligent, has outpatient providers and family involvement Needs: supportive housing, extended hospitalization Risk Factors Assessment Male: Yes : Yes Do You Have Access To A Gun?: No Mental Health Diagnoses: Yes Substance Use Disorders: No Previous Attempt: Yes Previous Psychiatric Hospitalization: Yes Protective Factors Assessment Supportive Family: Yes Interval History Identifying Information 56 yo man with history of renal cancer, sleep disorders, depression, and possible BPAD who was admitted following an episode of [id number] aggression toward a family member and difficulty attending to his basic needs. Chief Complaint "My thoughts are not right". Review of Systems Sleep Information Total Hours of Sleep: 7 Meal Information Percent Meal Consumed - Breakfast: 100 Percent Meal Consumed - Lunch: 25 Percent Meal Consumed - Dinner: 100 Subjective Subjective Chart and events of last 24 hours reviewed and discussed with multidisciplinary treatment team including nursing and social work. No acute events reported overnight. Slept well. Eating well. Adherent with medications. Today reviewed with Froylan some of the events that lead to his admission and current symptoms. He notes it is difficult to identify his current symptoms noting that "my brain" is the biggest concern and that he experienced more worries about his family's health with COVID and feels this lead to his recent decompensation with multiple recent psychiatric hospitalizations. He finds his mind can get stuck on certain worries and thoughts. He is unsure if BPAD is an accurate diagnosis. Spent more than 20 minutes in the care and coordination of this patient of which greater than 50% was dedicated to counseling and coordination of care. Physical Exam Psychiatric Orientation: alert and oriented x 3 Apperance: + disheveled Eye Contact: + fair eye contact Motor Behavior: steady gait and station and no abnormal motor movements Speech: normal rate/rhythm/volume of speech Affect: + flat affect Mood: + anxious mood Thought Process: + concrete thought process Thought Content: + obsessions and reality based without delusions Suicidal Thoughts: denies suicidal thoughts Homicidal Thoughts: denies homicidal thoughts Hallucinations: no auditory hallucinations and no visual hallucinations Cognition: recent memory grossly intact, remote memory grossly intact and language grossly intact Estimated Intelligence: consistent with education level Insight: + limited insight Judgement: + fair judgement Vital Signs (Past 24 Hours) Last Vital Signs Temp 36.8 C 03/20/21 06:00 Pulse 74 03/20/21 06:46 Resp 14 03/20/21 06:00 BP 116/78 03/20/21 06:46 Pulse Ox 96 03/19/21 15:47 Results & Data ([facility]) Current Inpatient Medications Current Inpatient Medications: Current Inpatient Medications Acetaminophen (Acetaminophen 325 Mg Tab) 650 mg PO Q4H PRN PRN Reason: Headache or Minor Fever Stop: 04/18/21 14:08 Al Hydrox/Mg Hydrox/Simethicone (Aluminum/Magnesium Susp 30 Ml Udc) 30 ml PO Q4H PRN PRN Reason: GI Upset Stop: 04/18/21 14:08 Bismuth Subsalicylate (Bismuth Subsalicylate Liqd 236 Ml) 15 ml PO PRN PRN PRN Reason: Loose Stool Stop: 04/18/21 14:08 Cyanocobalamin (Cyanocobalamin 500 Mcg Tablet (Vitamin B-12)) 1,000 mcg PO DAILY JACLYN Stop: 04/19/21 08:59 Last Admin: 03/20/21 08:59 Dose: 1,000 mcg Documented by: Famotidine (Famotidine 20 Mg Tab) 20 mg PO DAILY JACLYN Stop: 04/19/21 08:59 Last Admin: 03/20/21 09:00 Dose: 20 mg Documented by: Hydroxyzine HCl (Hydroxyzine Hcl 25 Mg Tab) 50 mg PO HSZ PRN PRN Reason: Insomnia Stop: 04/18/21 14:08 Hydroxyzine HCl (Hydroxyzine Hcl 25 Mg Tab) 25 mg PO Q4H PRN PRN Reason: Anxiety Stop: 04/18/21 14:08 Loratadine (Loratadine 10 Mg Tab) 10 mg PO DAILY JACLYN Stop: 04/19/21 08:59 Last Admin: 03/20/21 08:59 Dose: 10 mg Documented by: Lorazepam (Lorazepam 1 Mg Tab) 1 mg PO TID PRN PRN Reason: Anxiety Stop: 04/18/21 15:42 Magnesium Hydroxide (Magnesium Hydroxide Susp 30 Ml Udc) 30 ml PO DAILY PRN PRN Reason: Constipation Stop: 04/18/21 14:08 Quetiapine Fumarate (Quetiapine Fumarate 100 Mg Tablet) 100 mg PO HS JACLYN Stop: 04/19/21 21:59 Sodium Chloride (Sodium Chloride 0.65% Na Soln 45 Ml ([place])) 1 - 2 sprays NA PRN PRN PRN Reason: Nasal Dryness/Congestion Stop: 04/18/21 14:08 Tamsulosin HCl (Tamsulosin Hcl 0.4 Mg Cap) 0.4 mg PO HS JACLYN Stop: 04/18/21 21:59 Last Admin: 03/19/21 20:08 Dose: 0.4 mg Documented by: Thiamine HCl (Thiamine Hcl 100 Mg Tab) 100 mg PO QAM JACLYN Stop: 04/19/21 08:59 Last Admin: 03/20/21 09:00 Dose: 100 mg Documented by: Mental Health & Subst Abuse Tx Psychiatrist Name of Psychiatrist: Patricia Gautam Psychiatrist's Therapist Name of Therapist: Patricia Lara Therapist's Smocking Machine Operator Name of Smocking Machine Operator: [facility] Phone Number for Smocking Machine Operator: [phone] Post Discharge Appointments Primary Care Physician Name Of Family Doctor: CARITO Myers Primary Care Provider Appointment Comment: [address], [address], [place] Contact Information Discharge Discharge Address: [address] [place] [id number]
[2021-03-20] MEDS: TAMSULOSIN HCL 0.4 MG CAP PO SCH (21:17)
[2021-03-20] MEDS: QUEtiapine FUMARATE 100 MG TABLET PO SCH (21:17)
[2021-03-21] MEDS: LORATADINE 10 MG TAB PO SCH (08:55)
[2021-03-21] MEDS: THIAMINE HCL 100 MG TAB PO SCH (08:55)
[2021-03-21] MEDS: FAMOTIDINE 20 MG TAB PO SCH (08:56)
[2021-03-21] MEDS: CYANOCOBALAMIN 500 MCG TABLET (VITAMIN B-12) PO SCH (08:56)
[2021-03-21 08:59] LABS: Chol HDL Ratio 2; Cholesterol 157 mg/dl (0-200); HDL Cholesterol 67 mg/dl; LDL Cholesterol Calculated 74 mg/dl; Triglycerides 78 mg/dl (0-150); VLDL Cholesterol 16 mg/dl
--- NOTE | 2021-03-21 13:39 | Psychiatric Progress Note ---
Date of Service March 21, 2021 Impression / Recommendations Shruthi Galeano is a 56 yo male with a history of bipolar disorder, primarily depression who has been unable to function without the structure of work, unable to care for self at [facility], now failed placement with a relative resulting in multiple inpatient hospitalizations this year. He was non adherent with medication and presented with a possible mixed episode of ronald. Records have also raised the question of possible ASD. Diagnostically he presents with very concrete thoughts, flat affect and has difficulty discussing his mood or recent challenges which can all be consistent with ASD but he denies history of diffi culty with social communication nor restricted repeptive interests. Additionally episode leading to hospital sounds consistent with possible ronald v brief psychotic episode. Remains a confusing diagnostic picture as he has difficulty discussing any bothersome symptoms but there is certainly a component of anxiety and depression and his strikingly flat affect and concrete thought content appears similar to what is seen in a primary psychotic disorder vs ASD vs severe depression. Other possibilities include early onset neurocognitive disorder like FTD if this is truly a change from his baseline but neurology did not see any signs of dementia and brain MRI showed no significant roy matter or volume changes. His baseline functioning remains unclear to me and hopefully can be further elucidated by collateral information. --MNPR due to recent aggression and need for reduced stimuli (1) Bipolar 1 disorder, mixed: 03/21/21: Lipid panel WNL and reassuring in setting of Seroquel use. Diagnostic picture remains unclear, awaiting a few specific titers from recent CSF but otherwise medical workup has been unremarkable. Will attempt further collateral from patient's brother and outpatient psychiatrist tomorrow. Will continue with seroquel 100 mg qhs. 03/20/21: Increase seroquel to 100mg qhs which patient consented to. Provided with screening questionnaires for OCD (Y-BOCS), BPD (mood disorder questionnaire), depression (PHQ-9) and anxiety (JAREK-7). He twice threw away most questionnaires but did fill out the Y-BOCS which noted some obsessions but few compulsions. 03/19/21: The patient was admitted to the [facility] ([facility] mental [facility]) on q15 min checks (behavioral with suicide precautions) for safety. The patient will participate in group, recreational, and milieu therapies and will be offered additional individual and family sessions as clinically appropriate. Continue Seroquel this hs. Consider Latuda trial. Will need to discuss options for longer term hospitalization with family and treatment team. MNPR due to recent aggression. Inventory Assets Strengths: intelligent, has outpatient providers and family involvement Needs: supportive housing, extended hospitalization Risk Factors Assessment Male: Yes : Yes Do You Have Access To A Gun?: No Mental Health Diagnoses: Yes Substance Use Disorders: No Previous Attempt: Yes Previous Psychiatric Hospitalization: Yes Protective Factors Assessment Supportive Family: Yes Interval History Identifying Information 56 yo man with history of renal cancer, sleep disorders, depression, and possible BPAD who was admitted following an episode of [id number] aggression toward a family member and difficulty attending to his basic needs. Chief Complaint "I'm ok". Review of Systems Sleep Information Total Hours of Sleep: 7.5 Meal Information Percent Meal Consumed - Breakfast: 100 Percent Meal Consumed - Lunch: 25 Percent Meal Consumed - Dinner: 100 Subjective Subjective Chart and events of last 24 hours reviewed and discussed with multidisciplinary treatment team including nursing and social work. Reported stomach pain last night and received Maalox with good effect. Slept well. Eating well. Isolative to his room. Adherent with medications. Today he reports sleeping well and no stomach pain today. He didn't notice any particular benefit nor side effect from the higher dose of seroquel. Reviewed the Y-BOCS that he filled out, he threw out the PHQ-9, JAREK-7 and Mood disorder questionnaire. Reviewed that he will sometimes have obsessive thoughts about losing things but has no compulsions related to this. Sometimes has compulsion of needing to count to 5 while waiting-for example did it repetitively in his head while waiting for breakfast to arrive this morning but denies any obsessions associated with this. He continues to have difficulty discussing any other symptoms he experienced recently or anything that he is bothered by currently. Reviewed potential question of ASD and he noted lifelong trouble making eye contact and understanding what people are thinking or feeling but denied any restrictive repetitive interests (likes card games but plays maybe 1 hour per day and never hyperfocused on learning rules or only wanting to discuss card games) and felt that he never struggled interpersonally while working at [employer] in the past. Spent more than 20 minutes in the care and coordination of this patient of which greater than 50% was dedicated to counseling and coordination of care. Physical Exam Psychiatric Orientation: alert and oriented x 3 Apperance: appropriately dressed and appropriately groomed Eye Contact: + poor eye contact Motor Behavior: steady gait and station and no abnormal motor movements Speech: normal rate/rhythm/volume of speech Affect: + flat affect Mood: + depressed mood and + anxious mood Thought Process: + concrete thought process Thought Content: + obsessions and reality based without delusions Suicidal Thoughts: denies suicidal thoughts Homicidal Thoughts: denies homicidal thoughts Hallucinations: no auditory hallucinations and no visual hallucinations Cognition: recent memory grossly intact, remote memory grossly intact and language grossly intact Estimated Intelligence: consistent with education level Insight: + limited insight Judgement: + fair judgement Vital Signs (Past 24 Hours) Last Vital Signs Temp 36.8 C 03/21/21 06:00 Pulse 68 03/21/21 06:33 Resp 16 03/21/21 06:00 BP 109/72 03/21/21 06:33 Pulse Ox 95 03/20/21 21:15 Results & Data ([facility]) Laboratory Results Laboratory Results - last 24 hr 03/21/21 08:23 Triglycerides 78 Cholesterol 157 LDL Cholesterol, Calc 74 VLDL Cholesterol, Calc 16 HDL Cholesterol 67 Cholesterol/HDL Ratio 2 Current Inpatient Medications Current Inpatient Medications: Current Inpatient Medications Acetaminophen (Acetaminophen 325 Mg Tab) 650 mg PO Q4H PRN PRN Reason: Headache or Minor Fever Stop: 04/18/21 14:08 Al Hydrox/Mg Hydrox/Simethicone (Aluminum/Magnesium Susp 30 Ml Udc) 30 ml PO Q4H PRN PRN Reason: GI Upset Stop: 04/18/21 14:08 Last Admin: 03/20/21 19:41 Dose: 30 ml Documented by: Bismuth Subsalicylate (Bismuth Subsalicylate Liqd 236 Ml) 15 ml PO PRN PRN PRN Reason: Loose Stool Stop: 04/18/21 14:08 Cyanocobalamin (Cyanocobalamin 500 Mcg Tablet (Vitamin B-12)) 1,000 mcg PO DAILY JACLYN Stop: 04/19/21 08:59 Last Admin: 03/21/21 08:56 Dose: 1,000 mcg Documented by: Famotidine (Famotidine 20 Mg Tab) 20 mg PO DAILY JACLYN Stop: 04/19/21 08:59 Last Admin: 03/21/21 08:56 Dose: 20 mg Documented by: Hydroxyzine HCl (Hydroxyzine Hcl 25 Mg Tab) 50 mg PO HSZ PRN PRN Reason: Insomnia Stop: 04/18/21 14:08 Hydroxyzine HCl (Hydroxyzine Hcl 25 Mg Tab) 25 mg PO Q4H PRN PRN Reason: Anxiety Stop: 04/18/21 14:08 Loratadine (Loratadine 10 Mg Tab) 10 mg PO DAILY JACLYN Stop: 04/19/21 08:59 Last Admin: 03/21/21 08:55 Dose: 10 mg Documented by: Lorazepam (Lorazepam 1 Mg Tab) 1 mg PO TID PRN PRN Reason: Anxiety Stop: 04/18/21 15:42 Last Admin: 03/20/21 19:45 Dose: 1 mg Documented by: Magnesium Hydroxide (Magnesium Hydroxide Susp 30 Ml Udc) 30 ml PO DAILY PRN PRN Reason: Constipation Stop: 04/18/21 14:08 Quetiapine Fumarate (Quetiapine Fumarate 100 Mg Tablet) 100 mg PO HS AJCLYN Stop: 04/19/21 21:59 Last Admin: 03/20/21 21:17 Dose: 100 mg Documented by: Sodium Chloride (Sodium Chloride 0.65% Na Soln 45 Ml ([place])) 1 - 2 sprays NA PRN PRN PRN Reason: Nasal Dryness/Congestion Stop: 04/18/21 14:08 Tamsulosin HCl (Tamsulosin Hcl 0.4 Mg Cap) 0.4 mg PO HS JACLYN Stop: 04/18/21 21:59 Last Admin: 03/20/21 21:17 Dose: 0.4 mg Documented by: Thiamine HCl (Thiamine Hcl 100 Mg Tab) 100 mg PO QAM JACLYN Stop: 04/19/21 08:59 Last Admin: 03/21/21 08:55 Dose: 100 mg Documented by: Mental Health & Subst Abuse Tx Psychiatrist Name of Psychiatrist: Patricia Gautam Psychiatrist's Therapist Name of Therapist: Patricia Lara Therapist's Reservations Sales Agent Name of Reservations Sales Agent: [facility] Phone Number for Reservations Sales Agent: [phone] Post Discharge Appointments Primary Care Physician Name Of Family Doctor: CARITO Myers Primary Care Provider Appointment Comment: [id number], [address], [place] Contact Information Discharge Discharge Address: [address] [place] [address] [place] [address]
[2021-03-21] MEDS: TAMSULOSIN HCL 0.4 MG CAP PO SCH (20:58)
[2021-03-21] MEDS: QUEtiapine FUMARATE 100 MG TABLET PO SCH (21:00)
[2021-03-22] MEDS: THIAMINE HCL 100 MG TAB PO SCH (08:58)
[2021-03-22] MEDS: LORATADINE 10 MG TAB PO SCH (08:58)
[2021-03-22] MEDS: FAMOTIDINE 20 MG TAB PO SCH (08:58)
[2021-03-22] MEDS: CYANOCOBALAMIN 500 MCG TABLET (VITAMIN B-12) PO SCH (08:58)
--- NOTE | 2021-03-22 10:51 | Psychiatric Progress Note ---
Date of Service March 22, 2021 Impression / Recommendations Shruthi Galeano is a 56 yo male with a history of bipolar disorder, primarily depression who has been unable to function without the structure of work, unable to care for self at [facility], now failed placement with a relative resulting in multiple inpatient hospitalizations this year (fourth admission since October 2020). He was non adherent with medication and presented with a possible mixed episode of ronald. Records have also raised the question of possible ASD. Diagnostically he presents with very concrete thoughts, flat affect and has difficulty discussing his mood or recent challenges which can all be consistent with ASD but he denies history of difficulty with social communication nor restricted repetitive interests. Additionally episode leading to hospital sounds consistent with possible ronald v brief psychotic episode. Remains a confusing diagnostic picture as he has difficulty discussing any bothersome symptoms but there is certainly a component of anxiety and depression and his strikingly flat affect and concrete thought content appears similar to what is seen in a primary psychotic disorder vs ASD vs severe depression. Other possibilities include early onset neurocognitive disorder like FTD if this is truly a change from his baseline but neurology did not see any signs of dementia and brain MRI showed no significant roy matter or volume changes. His baseline functioning remains unclear to me and hopefully can be further elucidated by collateral information. They continue to require inpatient level of care due to due to acute disorganized/bizarre behavior that interferes with ADLs and due to their psychiatric condition causing major disability in social, interpersonal, occupational and/or educational functioning that requires help for safety and stabilization. Able to transition to shared room today given no further episodes of agitation. (1) Bipolar 1 disorder, mixed: 03/22/21--Continues to present as very concrete and with flat affect and poor eye contact. Gathering collateral with message left with his outpatient psychiatric and plan to contact his brother today. Likely will proceed with starting latuda with dinner for bipolar depression vs mixed episode after further collateral. Also starting daily schedule to encourage behavioral activation and less isolation to his room and to better assess his level of disorganization. 03/21/21: Lipid panel WNL and reassuring in setting of Seroquel use. Diagnostic picture remains unclear, awaiting a few specific titers from recent CSF but otherwise medical workup has been unremarkable. Will attempt further collateral from patient's brother and outpatient psychiatrist tomorrow. Will continue with seroquel 100 mg qhs. 03/20/21: Increase seroquel to 100mg qhs which patient consented to. Provided with screening questionnaires for OCD (Y-BOCS), BPD (mood disorder questionnaire), depression (PHQ-9) and anxiety (JAREK-7). He twice threw away most questionnaires but did fill out the Y-BOCS which noted some obsessions but few compulsions. 03/19/21: The patient was admitted to the [facility] ([facility]) on q15 min checks (behavioral with suicide precautions) for safety. The patient will participate in group, recreational, and milieu therapies and will be offered additional individual and family sessions as clinically appropriate. Continue Seroquel this hs. Consider Latuda trial. Will need to discuss options for longer term hospitalization with family and treatment team. MNPR due to recent aggression. Inventory Assets Strengths: intelligent, has outpatient providers and family involvement Needs: supportive housing, extended hospitalization Risk Factors Assessment Male: Yes : Yes Do You Have Access To A Gun?: No Mental Health Diagnoses: Yes Substance Use Disorders: No Previous Attempt: Yes Previous Psychiatric Hospitalization: Yes Protective Factors Assessment Supportive Family: Yes Interval History Identifying Information 56 yo man with history of renal cancer, sleep disorders, depression, and possible BPAD who was admitted following an episode of [id number] aggression toward a family member and difficulty attending to his basic needs. Chief Complaint "I'm fine". Review of Systems Sleep Information Total Hours of Sleep: 10 Sleep Comments: pt appeared to sleep 3 hrs during evening shift. pt on q-15 minute checks Meal Information Percent Meal Consumed - Breakfast: 100 Percent Meal Consumed - Lunch: 25 Percent Meal Consumed - Dinner: 100 Subjective Subjective Chart and events of last 24 hours reviewed and discussed with multidisciplinary treatment team including nursing and social work. No acute events reported overnight. Slept well. Eating well. Adherent with medications. Froylan remains isolative to his room with limited engagement and no spontaneously driven interactions. He continues to have difficulty describing what lead to his admission. Currently he denies any symptoms of depression though continues to experience obsessions/compulsions (a need to count to 5). 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 Spent more than 20 minutes in the care and coordination of this patient of which greater than 50% was dedicated to counseling and coordination of care. Physical Exam Psychiatric Orientation: alert and oriented x 3 Apperance: appropriately dressed and appropriately groomed Eye Contact: + poor eye contact Motor Behavior: steady gait and station and no abnormal motor movements Speech: normal rate/rhythm/volume of speech Affect: + flat affect Mood: + depressed mood and + anxious mood Thought Process: + concrete thought process Thought Content: + obsessions and reality based without delusions Suicidal Thoughts: denies suicidal thoughts Homicidal Thoughts: denies homicidal thoughts Hallucinations: no auditory hallucinations and no visual hallucinations Cognition: recent memory grossly intact, remote memory grossly intact and language grossly intact; + attention not intact Estimated Intelligence: consistent with education level Insight: + limited insight Judgement: + fair judgement Vital Signs (Past 24 Hours) Last Vital Signs Temp 36.6 C 03/22/21 06:45 Pulse 76 03/22/21 06:47 Resp 16 03/22/21 06:45 BP 113/76 03/22/21 06:47 Pulse Ox 95 03/20/21 21:15 Results & Data ([facility]) Current Inpatient Medications Current Inpatient Medications: Current Inpatient Medications Acetaminophen (Acetaminophen 325 Mg Tab) 650 mg PO Q4H PRN PRN Reason: Headache or Minor Fever Stop: 04/18/21 14:08 Al Hydrox/Mg Hydrox/Simethicone (Aluminum/Magnesium Susp 30 Ml Udc) 30 ml PO Q4H PRN PRN Reason: GI Upset Stop: 04/18/21 14:08 Last Admin: 03/20/21 19:41 Dose: 30 ml Documented by: Bismuth Subsalicylate (Bismuth Subsalicylate Liqd 236 Ml) 15 ml PO PRN PRN PRN Reason: Loose Stool Stop: 04/18/21 14:08 Cyanocobalamin (Cyanocobalamin 500 Mcg Tablet (Vitamin B-12)) 1,000 mcg PO DAILY JACLYN Stop: 04/19/21 08:59 Last Admin: 03/22/21 08:58 Dose: 1,000 mcg Documented by: Famotidine (Famotidine 20 Mg Tab) 20 mg PO DAILY JACLYN Stop: 04/19/21 08:59 Last Admin: 03/22/21 08:58 Dose: 20 mg Documented by: Hydroxyzine HCl (Hydroxyzine Hcl 25 Mg Tab) 50 mg PO HSZ PRN PRN Reason: Insomnia Stop: 04/18/21 14:08 Hydroxyzine HCl (Hydroxyzine Hcl 25 Mg Tab) 25 mg PO Q4H PRN PRN Reason: Anxiety Stop: 04/18/21 14:08 Loratadine (Loratadine 10 Mg Tab) 10 mg PO DAILY JACLYN Stop: 04/19/21 08:59 Last Admin: 03/22/21 08:58 Dose: 10 mg Documented by: Lorazepam (Lorazepam 1 Mg Tab) 1 mg PO TID PRN PRN Reason: Anxiety Stop: 04/18/21 15:42 Last Admin: 03/20/21 19:45 Dose: 1 mg Documented by: Magnesium Hydroxide (Magnesium Hydroxide Susp 30 Ml Udc) 30 ml PO DAILY PRN PRN Reason: Constipation Stop: 04/18/21 14:08 Quetiapine Fumarate (Quetiapine Fumarate 100 Mg Tablet) 100 mg PO HS JACLYN Stop: 04/19/21 21:59 Last Admin: 03/21/21 21:00 Dose: 100 mg Documented by: Sodium Chloride (Sodium Chloride 0.65% Na Soln 45 Ml ([place])) 1 - 2 sprays NA PRN PRN PRN Reason: Nasal Dryness/Congestion Stop: 04/18/21 14:08 Tamsulosin HCl (Tamsulosin Hcl 0.4 Mg Cap) 0.4 mg PO HS JACLYN Stop: 04/18/21 21:59 Last Admin: 03/21/21 20:58 Dose: 0.4 mg Documented by: Thiamine HCl (Thiamine Hcl 100 Mg Tab) 100 mg PO QAM JACLYN Stop: 04/19/21 08:59 Last Admin: 03/22/21 08:58 Dose: 100 mg Documented by: Mental Health & Subst Abuse Tx Psychiatrist Name of Psychiatrist: Patricia Gautam Psychiatrist's Therapist Name of Therapist: Patricia Lara Therapist's Interpreter For The Deaf Name of Interpreter For The Deaf: [facility] Phone Number for Interpreter For The Deaf: [phone] Post Discharge Appointments Primary Care Physician Name Of Family Doctor: CARITO Myers Primary Care Provider Appointment Comment: [address], [address], [place] Contact Information Discharge Discharge Address: [address] [place] [address], [place] [address]
[2021-03-22] MEDS: QUEtiapine FUMARATE 100 MG TABLET PO SCH (20:18)
[2021-03-22] MEDS: TAMSULOSIN HCL 0.4 MG CAP PO SCH (20:19)
[2021-03-23] MEDS: THIAMINE HCL 100 MG TAB PO SCH (07:46)
[2021-03-23] MEDS: LORATADINE 10 MG TAB PO SCH (07:46)
[2021-03-23] MEDS: FAMOTIDINE 20 MG TAB PO SCH (07:50)
[2021-03-23] MEDS: CYANOCOBALAMIN 500 MCG TABLET (VITAMIN B-12) PO SCH (07:51)
[2021-03-23] MEDS: hydrOXYzine HCl 25 MG TAB PO PRN ×2 (10:39→17:45)
--- NOTE | 2021-03-23 16:24 | Psychiatric Progress Note ---
Date of Service March 23, 2021 Impression / Recommendations Shruthi Galeano is a 56 yo male with a history of bipolar disorder, primarily depression who has been unable to function without the structure of work, unable to care for self at [facility], now failed placement with a relative resulting in multiple inpatient hospitalizations this year (fourth admission since October 2020). He was non adherent with medication and presented with a possible mixed episode of ronald. Records have also raised the question of possible ASD. Diagnostically he presents with very concrete thoughts, flat affect and has difficulty discussing his mood or recent challenges which can all be consistent with ASD but he denies history of difficulty with social communication nor restricted repetitive interests. Additionally episode leading to hospital sounds consistent with possible ronald v brief psychotic episode. Remains a confusing diagnostic picture as he has difficulty discussing any bothersome symptoms but there is certainly a component of anxiety and depression and his strikingly flat affect and concrete thought content appears similar to what is seen in a primary psychotic disorder vs severe depression. Other possibilities include early onset neurocognitive disorder like FTD or Parkinson's disease but neurology did not see any signs of dementia and brain MRI showed no significant roy matter or volume changes. Certainly his decompensation since September is a significant change from his prior baseline. Late-onset schizophrenia is rare but could be possible especially with family history vs MDD with psychotic features v BPAD with ongoing mixed episodes. I'm unsure what to make of his odd clock drawing, change in spontaneity of speech and parkisonism features. They continue to require inpatient level of care due to due to acute disorganized/bizarre behavior that interferes with ADLs and due to their psychiatric condition causing major disability in social, interpersonal, occupational and/or educational functioning that requires help for safety and stabilization. -201 (1) Bipolar 1 disorder, mixed: 03/23/21--Considerable time spent over the last three days reviewing and gathering collateral information from his outpatient provider and family. Awaiting records from most recent hospitalization where he apparently recieved [facility]. Therefore will not add any additional medications until this is clarified. He is spending more time on the unit but is not socializing and is often observed sitting or walking with staring at the wall with no purposeful activity. Will plan to do MOCA tomorrow. Will check in with Mauri again on Monday afternoon. 03/22/21--Continues to present as very concrete and with flat affect and poor eye contact. Gathering collateral with message left with his outpatient psychiatric and plan to contact his brother today. Likely will proceed with starting latuda with dinner for bipolar depression vs mixed episode after further collateral. Also starting daily schedule to encourage behavioral activa tion and less isolation to his room and to better assess his level of disorganization. 03/21/21: Lipid panel WNL and reassuring in setting of Seroquel use. Diagnostic picture remains unclear, awaiting a few specific titers from recent CSF but otherwise medical workup has been unremarkable. Will attempt further collateral from patient's brother and outpatient psychiatrist tomorrow. Will continue with seroquel 100 mg qhs. 03/20/21: Increase seroquel to 100mg qhs which patient consented to. Provided with screening questionnaires for OCD (Y-BOCS), BPD (mood disorder questionnaire), depression (PHQ-9) and anxiety (JAREK-7). He twice threw away most questionnaires but did fill out the Y-BOCS which noted some obsessions but few compulsions. 03/19/21: The patient was admitted to the [facility] ([facility] mental health unit) on q15 min checks (behavioral with suicide precautions) for safety. The patient will participate in group, recreational, and milieu therapies and will be offered additional individual and family sessions as clinically appropriate. Continue Seroquel this hs. Consider Latuda trial. Will need to discuss options for longer term hospitalization with family and treatment team. MNPR due to recent aggression. Inventory Assets Strengths: intelligent, has outpatient providers and family involvement Needs: supportive housing, extended hospitalization Risk Factors Assessment Male: Yes : Yes Do You Have Access To A Gun?: No Mental Health Diagnoses: Yes Substance Use Disorders: No Previous Attempt: Yes Previous Psychiatric Hospitalization: Yes Protective Factors Assessment Supportive Family: Yes Interval History Identifying Information 56 yo man with history of renal cancer, sleep disorders, depression, and possibl e BPAD who was admitted following an episode of [id number] aggression toward a family member and difficulty attending to his basic needs. Chief Complaint "My memory is fine as you can see". Review of Systems Sleep Information Total Hours of Sleep: 6.5 Sleep Comments: pt appeared to sleep 3 hrs during evening shift. pt on q-15 minute checks Meal Information Percent Meal Consumed - Breakfast: 100 Percent Meal Consumed - Lunch: 100 Percent Meal Consumed - Dinner: 100 Subjective Subjective Chart and events of last 24 hours reviewed and discussed with multidisciplinary treatment team including nursing and social work. No acute events reported overnight. Slept well. Eating well. Out of his room and walking a lot but not following his daily schedule and often wandering or standing alone in a room staring at the wall. Adherent with medications. This morning Froylan was eating breakfast in the dining room and appropriately conversed with me about a few topics including verifying that he was ok with me talking to his brother and son. I then spoke with his son, Александр, and reviewed his recent history, decompensation in September 2020 and his baseline prior to that. Per Александр, Froylan used to be very talkative, would tell jokes and enjoyed a variety of activities. Since September he feels like he hasn't gotten a glimpse of how his dad used to be and instead has been like we see him here-flat affect and little spontaneous language. Reviewed with Александр the medical workup including CSF and brain MRI. Discussed large differential diagnosis and got family history including maternal grandfather with Parkinson's disease and uncle with history of BPAD and nephew with schizophrenia. Around noon met with Froylan again who reported "good" mood (though stated with no change in affect) and he denied any problems or concerns. He denied any issues with memory though did agree that his speech is now less spontaneous which he attributed to having word finding difficulty. He denied any issues with postural instability. He agreed to walk and was observed to walk with straight posture but little movement of his arms. We did some cognitive tests including a writing sample (font size was normal and he reports is consistent with his lifelong handwriting with no changes), clock drawing (abnormal with no numbers and line down the middle), categorical fluency (normal, named 14 animals in one minute), correct serial 7s and fully oriented. Then in the afternoon spoke with his brother Mauri. Mauri reported that Александр will be the contact for social work and that they can check in weekly as we understand appropriate follow-up once differential is better elucidated. Mauri and Aj will check in twice per week in the late afternoon for brief update on medical care and treatment. They will be the two contacts for the family so there is no confusion and since they are who Froylan prefers we have contact with. Mauri provided history of Froylan, prior to recent decompensation, reading a lot, playing suduko and being engaged with different intellectual activities throughout the day. 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 In September he had lost 50lbs and was "almost catatonic". During his initial hospitalization he received abilify and seroquel and experienced quite significant parkinsonism side effects which improved somewhat when the medication was changed. His muscle stiffness is a change and came on suddenly. 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 Confimed psych fam hx provided by Александр and Mauri noted that nephews schizophrenia is very severe-resulting in lifelong institutional placement and uncle's bipolar disorder presented with significant episodes of ronald as well fam hx of significant serious depressive episodes. Additionally Mauri emphasized the family's concern about Froylan having three recent interactions with police due to assaulting family members and his inability to follow through with outpatient care and follow-up even when Mauri and Александр make the phone calls for him and Froylan just needs to be able to verbally engage. Discussed the challenge of limited resources in [place] (i.e. [facility] is closing and not accepting any referrals, no IOPs or structured day programs) and he stated family is open to considering potential options in larger cities like [place]. Family feels he needs resid ential level of care. Discussed plan to monitor behaviors and presentation to help with differential before deciding on treatment. Mauri noted that Froylan recieved [facility] while at [facility] on the . Stated we would re- request records to expedite process of getting d/c summary. Additionally yesterday afternoon spoke with Froylan's outpatient psychiatrist Dr. Gautam who feels he needs a more supportive/residential living environment and ideally [facility]. She noted he can appear to not have psychotic symptoms but at other times can present with significant disorganization and bizarre behaviors (such as barking like a dog during a teletherapy appointment). Spent more than 80 minutes in the care and coordination of this patient of which greater than 50% was dedicated to counseling and coordination of care. Physical Exam Psychiatric Orientation: alert and oriented x 3 Apperance: appropriately dressed and appropriately groomed Eye Contact: + poor eye contact Motor Behavior: steady gait and station, + EPS (presents with possible masked facies, stiffness) and + akathisia (possible akathisia as he is often pacing but he denies any internal sx); n tremor Speech: normal rate/rhythm/volume of speech Affect: + flat affect Mood: + anxious mood Thought Process: + concrete thought process Thought Content: + obsessions and reality based without delusions Suicidal Thoughts: denies suicidal thoughts Homicidal Thoughts: denies homicidal thoughts Hallucinations: no auditory hallucinations and no visual hallucinations Cognition: recent memory grossly intact, remote memory grossly intact and language grossly intact Estimated Intelligence: consistent with education level Insight: + limited insight Judgement: + poor judgement Vital Signs (Past 24 Hours) Last Vital Signs Temp 36.7 C 03/23/21 06:34 Pulse 72 03/23/21 06:34 Resp 16 03/23/21 06:34 BP 131/83 03/23/21 06:34 Pulse Ox 95 03/20/21 21:15 Results & Data ([facility]) Current Inpatient Medications Current Inpatient Medications: Current Inpatient Medications Acetaminophen (Acetaminophen 325 Mg Tab) 650 mg PO Q4H PRN PRN Reason: Headache or Minor Fever Stop: 04/18/21 14:08 Al Hydrox/Mg Hydrox/Simethicone (Aluminum/Magnesium Susp 30 Ml Udc) 30 ml PO Q4H PRN PRN Reason: GI Upset Stop: 04/18/21 14:08 Last Admin: 03/20/21 19:41 Dose: 30 ml Documented by: Bismuth Subsalicylate (Bismuth Subsalicylate Liqd 236 Ml) 15 ml PO PRN PRN PRN Reason: Loose Stool Stop: 04/18/21 14:08 Cyanocobalamin (Cyanocobalamin 500 Mcg Tablet (Vitamin B-12)) 1,000 mcg PO DAILY JACLYN Stop: 04/19/21 08:59 Last Admin: 03/23/21 07:51 Dose: 1,000 mcg Documented by: Famotidine (Famotidine 20 Mg Tab) 20 mg PO DAILY JACLYN Stop: 04/19/21 08:59 Last Admin: 03/23/21 07:50 Dose: 20 mg Documented by: Hydroxyzine HCl (Hydroxyzine Hcl 25 Mg Tab) 50 mg PO HSZ PRN PRN Reason: Insomnia Stop: 04/18/21 14:08 Hydroxyzine HCl (Hydroxyzine Hcl 25 Mg Tab) 25 mg PO Q4H PRN PRN Reason: Anxiety Stop: 04/18/21 14:08 Last Admin: 03/23/21 10:39 Dose: 25 mg Documented by: Loratadine (Loratadine 10 Mg Tab) 10 mg PO DAILY JACLYN Stop: 04/19/21 08:59 Last Admin: 03/23/21 07:46 Dose: 10 mg Documented by: Magnesium Hydroxide (Magnesium Hydroxide Susp 30 Ml Udc) 30 ml PO DAILY PRN PRN Reason: Constipation Stop: 04/18/21 14:08 Quetiapine Fumarate (Quetiapine Fumarate 100 Mg Tablet) 100 mg PO HS JACLYN Stop: 04/19/21 21:59 Last Admin: 03/22/21 20:18 Dose: 100 mg Documented by: Sodium Chloride (Sodium Chloride 0.65% Na Soln 45 Ml ([place])) 1 - 2 sprays NA PRN PRN PRN Reason: Nasal Dryness/Congestion Stop: 04/18/21 14:08 Tamsulosin HCl (Tamsulosin Hcl 0.4 Mg Cap) 0.4 mg PO HS JACLYN Stop: 04/18/21 21:59 Last Admin: 03/22/21 20:19 Dose: 0.4 mg Documented by: Thiamine HCl (Thiamine Hcl 100 Mg Tab) 100 mg PO QAM JACLYN Stop: 04/19/21 08:59 Last Admin: 03/23/21 07:46 Dose: 100 mg Documented by: Mental Health & Subst Abuse Tx Psychiatrist Name of Psychiatrist: Patricia Gautam Psychiatrist's Therapist Name of Therapist: Patricia Lara Therapist's Fixed Interest Dealer Name of Fixed Interest Dealer: [facility] Phone Number for Fixed Interest Dealer: [phone] Post Discharge Appointments Primary Care Physician Name Of Family Doctor: CARITO Myers Primary Care Provider Appointment Comment: [address] [facility], [address] [place] [address] Contact Information Discharge Discharge Address: [address] [place] [address]
[2021-03-23] MEDS: PROPRANOLOL HCL 10 MG TAB PO SCH (18:34)
[2021-03-23] MEDS ORDERED: PROPRANOLOL HCL 10 MG TAB PO SCH (21:00)
[2021-03-23] MEDS: TAMSULOSIN HCL 0.4 MG CAP PO SCH (21:28)
[2021-03-23] MEDS: QUEtiapine FUMARATE 100 MG TABLET PO SCH (21:30)
[2021-03-24] MEDS: FAMOTIDINE 20 MG TAB PO SCH (07:57)
[2021-03-24] MEDS: PROPRANOLOL HCL 10 MG TAB PO SCH ×2 (07:58→20:27)
[2021-03-24] MEDS: LORATADINE 10 MG TAB PO SCH (07:58)
[2021-03-24] MEDS: CYANOCOBALAMIN 500 MCG TABLET (VITAMIN B-12) PO SCH (07:58)
[2021-03-24] MEDS: THIAMINE HCL 100 MG TAB PO SCH (07:58)
--- NOTE | 2021-03-24 17:37 | Psychiatric Progress Note ---
Date of Service March 24, 2021 Impression / Recommendations Shruthi Galeano is a 56 yo male with a history of bipolar disorder, primarily depression who has been unable to function without the structure of work, unable to care for self at [facility], now failed placement with a relative resulting in multiple inpatient hospitalizations this year (fourth admission since October 2020). He was non adherent with medication and presented with a possible mixed episode of ronald. Records have also raised the question of possible ASD vs late-onset schizophrenia vs factitious disorder. Diagnostically he presents with very concrete thoughts, flat affect and has difficulty discussing his mood or recent challenges which can all be consistent with ASD but he denies history of difficulty with social communication nor restricted repetitive interests. Family collateral and records review does show history of social communication challenges and oddities. Additionally episode leading to hospital sounds consistent with possible ronald v brief psychotic episode. Remains a confusing diagnostic picture as he has difficulty discussing any bothersome symptoms but there is certainly a component of anxiety and depression and his strikingly flat affect and concrete thought content appears similar to what is seen in a primary psychotic disorder vs severe depression. Other possibilities include early onset neurocognitive disorder like FTD or Parkinson's disease but neurology did not see any signs of dementia and brain MRI showed no significant roy matter or volume changes. Certainly his decompensation since September is a significant change from his prior baseline though outside records also note family previously stated decompensation started 3 years ago. Late-onset schizophrenia is rare but could be possible especially with family history vs MDD with psychotic features v BPAD with ongoing mixed episodes. I'm unsure what to make of his odd clock drawing, change in spontaneity of speech and parkisonism features though certainly Parkinsonism could be side effect from recent Invega Sustenna. Interestingly during all of his recent hospitalizations there has been no observed behaviors of acute ronald nor psychosis but between hospitalizations he engages in odd behaviors (such as disrobing or barking like a dog during a teletherapy session) or becomes agitated toward family members or reports he's had a suicide attempt (though no evidence that he has ever attempted, and collateral and record review notes that at times he has said this to get someone's attention) and refuses to engage with outpatient care (even when family helps him set up the logistical aspects). This could be due to medication non-adherence in the outpatient setting supporting use of the GARNICA long-term to reduce the need for frequent re-hospitalizations. There is also a question of past and more recent overuse of lorazepam which for many years was prescribed for his sleep disorder symptoms, he has not asked for nor is demonstrating any medication seeking behaviors nor any withdrawal signs since admission. Certainly one goal of this hospitalization will continue to be avoiding any lorazepam use given that potentially this has been leading to disinhibition and the odd behaviors and agitation and/or he has been accidentally or intentionally taking too much and potentially going into periods of withdrawal with increased agitation. He received Invega Sustenna 234 mg IM on 03/09/21 and then second dose of 156 mg on 03/13/21. He will be due for his next dose of 76 mg on 04/09/21. The build-up of his GARNICA may also help explain no current symptoms of agitation, ronald, psychosis nor mood symptoms. They continue to require inpatient level of care due to due to acute disorganized/bizarre behavior that interferes with ADLs and due to their psychiatric condition causing major disability in social, interpersonal, occupational and/or educational functioning that requires help for safety and stabilization. -201 (1) Bipolar 1 disorder, mixed: 03/24/21--Reviewed records from most recent hospitalization at [facility] from 03/06 through 03/13. Interestingly they were seeing a very similar clinical picture with agitation leading to hospitalization and then no further acute psychiatric symptoms of ronald nor psychosis. They raised consideration for factitious disorder given that Froylan has been known to make statements of SI to seek care and that he struggles to know how to make social connections in a typical way so this could be a way of him meeting these needs. Was unable to do MOCA due to time constraints so will attempt tomorrow. Propranolol 10mg BID add ed last night due to concern for worsening akathasia and HTN. Will aim to taper Seroquel to discontinuation with goal of Invega monotherapy but will discuss this further with Froylan and his brother. Given history of medication non- adherence after discharge agree with Invega GARNICA as good long-term option. 03/23/21--Considerable time spent over the last three days reviewing and gathering collateral information from his outpatient provider and family. Awaiting records from most recent hospitalization where he apparently recieved GARNICA Invega. Therefore will not add any additional medications until this is clarified. He is spending more time on the unit but is not socializing and is often observed sitting or walking with staring at the wall with no purposeful activity. Will plan to do MOCA tomorrow. Will check in with Mauri again on Monday afternoon. 03/22/21--Continues to present as very concrete and with flat affect and poor eye contact. Gathering collateral with message left with his outpatient psychiatric and plan to contact his brother today. Likely will proceed with starting latuda with dinner for bipolar depression vs mixed episode after further collateral. Also starting daily schedule to encourage behavioral activation and less isolation to his room and to better assess his level of disorganization. 03/21/21: Lipid panel WNL and reassuring in setting of Seroquel use. Diagnostic picture remains unclear, awaiting a few specific titers from recent CSF but otherwise medical workup has been unremarkable. Will attempt further collateral from patient's brother and outpatient psychiatrist tomorrow. Will continue with seroquel 100 mg qhs. 03/20/21: Increase seroquel to 100mg qhs which patient consented to. Provided with screening questionnaires for OCD (Y-BOCS), BPD (mood disorder questionnaire), depression (PHQ-9) and anxiety (JAREK-7). He twice threw away most questionnaires but did fill out the Y-BOCS which noted some obsessions but few compulsions. 03/19/21: The patient was admitted to the [facility] ([facility]) on q15 min checks (behavioral with suicide precautions) for safety. The patient will participate in group, recreational, and milieu therapies and will be offered additional individual and family sessions as clinically appropriate. Continue Seroquel this hs. Consider Latuda trial. Will need to discuss options for longer term hospitalization with family and treatment team. MNPR due to recent aggression. Inventory Assets Strengths: intelligent, has outpatient providers and family involvement Needs: supportive housing, extended hospitalization Risk Factors Assessment Male: Yes : Yes Do You Have Access To A Gun?: No Mental Health Diagnoses: Yes Substance Use Disorders: No Previous Attempt: Yes Previous Psychiatric Hospitalization: Yes Protective Factors Assessment Supportive Family: Yes Interval History Identifying Information 56 yo man with history of renal cancer, sleep disorders, depression, and possible BPAD who was admitted following an episode of [id number] aggression toward a family member and difficulty attending to his basic needs. Chief Complaint "I'm ok". Review of Systems Sleep Information Total Hours of Sleep: 6.5 Sleep Comments: pt appeared to sleep 3 hrs during evening shift. pt on q-15 minute checks Meal Information Percent Meal Consumed - Breakfast: 100 Percent Meal Consumed - Lunch: 100 Percent Meal Consumed - Dinner: 100 Subjective Subjective Chart and events of last 24 hours reviewed and discussed with multidisciplinary treatment team including nursing and social work. No acute events reported overnight. Slept well. Eating well. Attending groups. Adherent with medications. Spending a lot of time out of his room. Froylan reported stable mood and no medication side effects. He had elevated BP last night and appeared restlessness during evening groups. Reviewed records from most recent hospitalization at [facility] from 03/06 through 03/13. Spent more than 20 minutes in the care and coordination of this patient of which greater than 50% was dedicated to counseling and coordination of care. Physical Exam Psychiatric Orientation: alert and oriented x 3 Apperance: appropriately dressed and appropriately groomed Eye Contact: + poor eye contact Motor Behavior: steady gait and station, + EPS (presents with possible masked facies, stiffness) and + akathisia (possible akathisia as he is often pacing but he denies any internal sx); n tremor Speech: normal rate/rhythm/volume of speech Affect: + flat affect Mood: + depressed mood Thought Process: + concrete thought process Thought Content: reality based without delusions Suicidal Thoughts: denies suicidal thoughts Homicidal Thoughts: denies homicidal thoughts Hallucinations: no auditory hallucinations and no visual hallucinations Cognition: recent memory grossly intact, remote memory grossly intact and language grossly intact; + attention not intact Estimated Intelligence: consistent with education level Insight: + limited insight Judgement: + fair judgement Vital Signs (Past 24 Hours) Last Vital Signs Temp 36.6 C 03/24/21 06:00 Pulse 71 03/24/21 13:40 Resp 14 03/24/21 06:00 BP 107/71 03/24/21 13:40 Pulse Ox 95 03/20/21 21:15 Results & Data ([facility]) Current Inpatient Medications Current Inpatient Medications: Current Inpatient Medications Acetaminophen (Acetaminophen 325 Mg Tab) 650 mg PO Q4H PRN PRN Reason: Headache or Minor Fever Stop: 04/18/21 14:08 Al Hydrox/Mg Hydrox/Simethicone (Aluminum/Magnesium Susp 30 Ml Udc) 30 ml PO Q4H PRN PRN Reason: GI Upset Stop: 04/18/21 14:08 Last Admin: 03/20/21 19:41 Dose: 30 ml Documented by: Bismuth Subsalicylate (Bismuth Subsalicylate Liqd 236 Ml) 15 ml PO PRN PRN PRN Reason: Loose Stool Stop: 04/18/21 14:08 Cyanocobalamin (Cyanocobalamin 500 Mcg Tablet (Vitamin B-12)) 1,000 mcg PO DAILY JACLYN Stop: 04/19/21 08:59 Last Admin: 03/24/21 07:58 Dose: 1,000 mcg Documented by: Famotidine (Famotidine 20 Mg Tab) 20 mg PO DAILY JACLYN Stop: 04/19/21 08:59 Last Admin: 03/24/21 07:57 Dose: 20 mg Documented by: Hydroxyzine HCl (Hydroxyzine Hcl 25 Mg Tab) 50 mg PO HSZ PRN PRN Reason: Insomnia Stop: 04/18/21 14:08 Last Admin: 03/23/21 17:45 Dose: 50 mg Documented by: Hydroxyzine HCl (Hydroxyzine Hcl 25 Mg Tab) 25 mg PO Q4H PRN PRN Reason: Anxiety Stop: 04/18/21 14:08 Last Admin: 03/23/21 10:39 Dose: 25 mg Documented by: Loratadine (Loratadine 10 Mg Tab) 10 mg PO DAILY JACLYN Stop: 04/19/21 08:59 Last Admin: 03/24/21 07:58 Dose: 10 mg Documented by: Magnesium Hydroxide (Magnesium Hydroxide Susp 30 Ml Udc) 30 ml PO DAILY PRN PRN Reason: Constipation Stop: 04/18/21 14:08 Propranolol HCl (Propranolol Hcl 10 Mg Tab) 10 mg PO BID JACLYN Stop: 04/22/21 17:49 Last Admin: 03/24/21 07:58 Dose: 10 mg Documented by: Quetiapine Fumarate (Quetiapine Fumarate 100 Mg Tablet) 100 mg PO HS JACLYN Stop: 04/19/21 21:59 Last Admin: 03/23/21 21:30 Dose: 100 mg Documented by: Sodium Chloride (Sodium Chloride 0.65% Na Soln 45 Ml (Declo)) 1 - 2 sprays NA PRN PRN PRN Reason: Nasal Dryness/Congestion Stop: 04/18/21 14:08 Tamsulosin HCl (Tamsulosin Hcl 0.4 Mg Cap) 0.4 mg PO HS JACLYN Stop: 04/18/21 21:59 Last Admin: 03/23/21 21:28 Dose: 0.4 mg Documented by: Thiamine HCl (Thiamine Hcl 100 Mg Tab) 100 mg PO QAM JACLYN Stop: 04/19/21 08:59 Last Admin: 03/24/21 07:58 Dose: 100 mg Documented by: Mental Health & Subst Abuse Tx Psychiatrist Name of Psychiatrist: Patricia Gautam Psychiatrist's Therapist Name of Therapist: Patricia Lara Therapist's Kettle Operator Name of Kettle Operator: [facility] Phone Number for Kettle Operator: [phone] Post Discharge Appointments Primary Care Physician Name Of Family Doctor: CARITO Myers Primary Care Provider Appointment Comment: [address], [address], [place] Contact Information Discharge Discharge Address: [address] [place] [id number]
[2021-03-24] MEDS: TAMSULOSIN HCL 0.4 MG CAP PO SCH (20:27)
[2021-03-24] MEDS: QUEtiapine FUMARATE 100 MG TABLET PO SCH (20:27)
[2021-03-25] MEDS: LORATADINE 10 MG TAB PO SCH (08:52)
[2021-03-25] MEDS: CYANOCOBALAMIN 500 MCG TABLET (VITAMIN B-12) PO SCH (08:52)
[2021-03-25] MEDS: FAMOTIDINE 20 MG TAB PO SCH (08:52)
[2021-03-25] MEDS: PROPRANOLOL HCL 10 MG TAB PO SCH ×2 (08:52→20:50)
[2021-03-25] MEDS: THIAMINE HCL 100 MG TAB PO SCH (08:52)
--- NOTE | 2021-03-25 16:52 | Psychiatric Progress Note ---
Date of Service March 25, 2021 Impression / Recommendations Shruthi Galeano is a 56 yo male with a history of bipolar disorder, primarily depression who has been unable to function without the structure of work, unable to care for self at [facility], now failed placement with a relative resulting in multiple inpatient hospitalizations this year (fourth admission since October 2020). He was non adherent with medication and presented with a possible mixed episode of ronald. Records have also raised the question of possible ASD vs late-onset schizophrenia vs factitious disorder. Diagnostically he presents with very concrete thoughts, flat affect and has difficulty discussing his mood or recent challenges which can all be consistent with ASD but he denies history of difficulty with social communication nor restricted repetitive interests. Family collateral and records review does show history of social communication challenges and oddities. Additionally episode leading to hospital sounds consistent with possible ronald v brief psychotic episode. Remains a confusing diagnostic picture as he has difficulty discussing any bothersome symptoms but there is certainly a component of anxiety and depression and his strikingly flat affect and concrete thought content appears similar to what is seen in a primary psychotic disorder vs severe depression. Other possibilities include early onset neurocognitive disorder like FTD or Parkinson's disease but neurology did not see any signs of dementia and brain MRI showed no significant roy matter or volume changes. Certainly his decompensation since September is a significant change from his prior baseline though outside records also note family previously stated decompensation started 3 years ago. Late-onset schizophrenia is rare but could be possible especially with family history vs MDD with psychotic features v BPAD with ongoing mixed episodes. I'm unsure what to make of his odd clock drawing, change in spontaneity of speech and parkisonism features though certainly Parkinsonism could be side effect from recent Invega Sustenna. Interestingly during all of his recent hospitalizations there has been no observed behaviors of acute ronald nor psychosis but between hospitalizations he engages in odd behaviors (such as disrobing or barking like a dog during a teletherapy session) or becomes agitated toward family members or reports he's had a suicide attempt (though no evidence that he has ever attempted, and collateral and record review notes that at times he has said this to get someone's attention) and refuses to engage with outpatient care (even when family helps him set up the logistical aspects). This could be due to medication non-adherence in the outpatient setting supporting use of the GARNICA long-term to reduce the need for frequent re-hospitalizations. There is also a question of past and more recent overuse of lorazepam which for many years was prescribed for his sleep disorder symptoms, he has not asked for nor is demonstrating any medication seeking behaviors nor any withdrawal signs since admission. Certainly one goal of this hospitalization will continue to be avoiding any lorazepam use given that potentially this has been leading to disinhibition and the odd behaviors and agitation and/or he has been accidentally or intentionally taking too much and potentially going into periods of withdrawal with increased agitation. He received Invega Sustenna 234 mg IM on 03/09/21 and then second dose of 156 mg on 03/13/21. He will be due for his next dose of 76 mg on 04/09/21. The build-up of his GARNICA may also help explain no current symptoms of agitation, ronald, psychosis nor mood symptoms. They continue to require inpatient level of care due to due to acute disorganized/bizarre behavior that interferes with ADLs and due to their psychiatric condition causing major disability in social, interpersonal, occupational and/or educational functioning that requires help for safety and stabilization. Completed MOCA with score of 24/30 which is abnormal. He did well with visuospatial/executive though once again put no numbers on his clock. Did well with naming, attention, language, abstraction and orientation. However, he did horribly on the immediate and delayed recall memory sections with 0/5 recall with no cue and 0/5 recall with category cue and only 3/5 recall with multiple choice cue. Low MOCA on recall could be due to cognitive blunting effects from his antipsychotic medications though he told me he thinks he's been having issues with his memory for many months though struggled to provided details other than that he gets distracted by other thoughts. As I tried to clarify these thoughts he became more agitated which raises the question again of internal thought blocking and internal stimuli. -201 (1) Bipolar 1 disorder, mixed: 03/25/21-Discussed reducing seroquel from 100 mg to 50mg which Froylan consents to, in order to move toward antipsychotic monotherapy with Invega. Propranolol is helping with HTN and seems to be helping with akathisia. Could consider cogentin to see if this lessens EPS symptoms. MOCA score of 24/30, which is abnormal, with all points (except for 1 for no numbers on clock draw) lost on delayed recall. During discussion of his issues with memory he suggested that he gets distracted by internal thoughts and got distressed cut off our conversation at that point which raises suspicion for ongoing internal stimuli and/or thought blocking consistent with primary psychotic disorder which further supports use of Invega GARNICA. 03/24/21--Reviewed records from most recent hospitalization at [facility] from 03/06 through 03/13. Interestingly they were seeing a very similar clinical picture with agitation leading to hospitalization and then no further acute psychiatric symptoms of ronald nor psychosis. They raised consideration for factitious disorder given that Froylan has been known to make statements of SI to seek care and that he struggles to know how to make social connections in a typical way so this could be a way of him meeting these needs. Was unable to do MOCA due to time constraints so will attempt tomorrow. Propranolol 10mg BID added last night due to concern for worsening akathasia and HTN. Will aim to taper Seroquel to discontinuation with goal of Invega monotherapy but will discuss this further with Froylan and his brother. Given history of medication non-adherence after discharge agree with Invega GARNICA as good long-term option. 03/23/21--Considerable time spent over the last three days reviewing and gathering collateral information from his outpatient provider and family. Catherine iting records from most recent hospitalization where he apparently recieved GARNICA Invega. Therefore will not add any additional medications until this is clarified. He is spending more time on the unit but is not socializing and is often observed sitting or walking with staring at the wall with no purposeful activity. Will plan to do MOCA tomorrow. Will check in with Mauri again on Monday afternoon. 03/22/21--Continues to present as very concrete and with flat affect and poor eye contact. Gathering collateral with message left with his outpatient psychiatric and plan to contact his brother today. Likely will proceed with starting latuda with dinner for bipolar depression vs mixed episode after further collateral. Also starting daily schedule to encourage behavioral activation and less isolation to his room and to better assess his level of disorganization. 03/21/21: Lipid panel WNL and reassuring in setting of Seroquel use. Diagnostic picture remains unclear, awaiting a few specific titers from recent CSF but otherwise medical workup has been unremarkable. Will attempt further collateral from patient's brother and outpatient psychiatrist tomorrow. Will continue with seroquel 100 mg qhs. 03/20/21: Increase seroquel to 100mg qhs which patient consented to. Provided with screening questionnaires for OCD (Y-BOCS), BPD (mood disorder questionnaire), depression (PHQ-9) and anxiety (JAREK-7). He twice threw away most questionnaires but did fill out the Y-BOCS which noted some obsessions but few compulsions. 03/19/21: The patient was admitted to the [facility]) on q15 min checks (behavioral with suicide precautions) for safety. The patient will participate in group, recreational, and milieu therapies and will be offered additional individual and family sessions as clinically appropriate. Continue Seroquel this hs. Consider Latuda trial. Will need to discuss options for longer term hospitalization with family and treatment team. MNPR due to recent aggression. Inventory Assets Strengths: intelligent, has outpatient providers and family involvement Needs: supportive housing, extended hospitalization Risk Factors Assessment Male: Yes : Yes Do You Have Access To A Gun?: No Mental Health Diagnoses: Yes Substance Use Disorders: No Previous Attempt: Yes Previous Psychiatric Hospitalization: Yes Protective Factors Assessment Supportive Family: Yes Interval History Identifying Information 56 yo man with history of renal cancer, sleep disorders, depression, and possible BPAD who was admitted following an episode of [id number] aggression toward a family member and difficulty attending to his basic needs. Chief Complaint "I'm fine". Review of Systems Sleep Information Total Hours of Sleep: 5.5 Sleep Comments: pt appeared to sleep 3 hrs during evening shift. pt on q-15 minute checks Meal Information Percent Meal Consumed - Breakfast: 100 Percent Meal Consumed - Lunch: 100 Percent Meal Consumed - Dinner: 100 Subjective Subjective Patient was seen & assessed and interval progress reviewed with treatment team nursing and social work. he's been following his schedule by walking laps, attending groups and staying out his room during the day. He has appeared to be less restless to staff since starting the propranolol. Today I speak with Froylan multiple times throughout the day while he is walking in the halls and then we met in the morning for a more in-depth discussion. He reports that his mood is fine and denies any concerns or symptoms. He denies any akathisia or restlessness. He denies any medication side effects. Completed MOCA with him. Physical Exam Psychiatric Orientation: alert and oriented x 3 Apperance: appropriately dressed, appropriately groomed and + disheveled Eye Contact: + fair eye contact Motor Behavior: steady gait and station, no abnormal motor movements, + EPS (presents with possible masked facies, stiffness) and + akathisia (possible akathisia as he is often pacing but he denies any internal sx); n tremor Speech: normal rate/rhythm/volume of speech Affect: + flat affect Mood: + anxious mood; no depressed mood Thought Process: + concrete thought process Thought Content: + obsessions and reality based without delusions Suicidal Thoughts: denies suicidal thoughts Homicidal Thoughts: denies homicidal thoughts Hallucinations: no auditory hallucinations and no visual hallucinations Cognition: remote memory grossly intact, attention grossly intact and language grossly intact; + recent memory not intact Estimated Intelligence: consistent with education level Insight: + limited insight Judgement: + fair judgement Vital Signs (Past 24 Hours) Last Vital Signs Temp 36.7 C 03/25/21 06:00 Pulse 65 03/25/21 06:22 Resp 16 03/25/21 06:00 BP 132/79 03/25/21 06:22 Pulse Ox 95 03/20/21 21:15 Results & Data ([facility]) Current Inpatient Medications Current Inpatient Medications: Current Inpatient Medications Acetaminophen (Acetaminophen 325 Mg Tab) 650 mg PO Q4H PRN PRN Reason: Headache or Minor Fever Stop: 04/18/21 14:08 Al Hydrox/Mg Hydrox/Simethicone (Aluminum/Magnesium Susp 30 Ml Udc) 30 ml PO Q4H PRN PRN Reason: GI Upset Stop: 04/18/21 14:08 Last Admin: 03/20/21 19:41 Dose: 30 ml Documented by: Bismuth Subsalicylate (Bismuth Subsalicylate Liqd 236 Ml) 15 ml PO PRN PRN PRN Reason: Loose Stool Stop: 04/18/21 14:08 Cyanocobalamin (Cyanocobalamin 500 Mcg Tablet (Vitamin B-12)) 1,000 mcg PO DAILY JACLYN Stop: 04/19/21 08:59 Last Admin: 03/25/21 08:52 Dose: 1,000 mcg Documented by: Famotidine (Famotidine 20 Mg Tab) 20 mg PO DAILY JACLYN Stop: 04/19/21 08:59 Last Admin: 03/25/21 08:52 Dose: 20 mg Documented by: Hydroxyzine HCl (Hydroxyzine Hcl 25 Mg Tab) 50 mg PO HSZ PRN PRN Reason: Insomnia Stop: 04/18/21 14:08 Last Admin: 03/23/21 17:45 Dose: 50 mg Documented by: Hydroxyzine HCl (Hydroxyzine Hcl 25 Mg Tab) 25 mg PO Q4H PRN PRN Reason: Anxiety Stop: 04/18/21 14:08 Last Admin: 03/23/21 10:39 Dose: 25 mg Documented by: Loratadine (Loratadine 10 Mg Tab) 10 mg PO DAILY JACLYN Stop: 04/19/21 08:59 Last Admin: 03/25/21 08:52 Dose: 10 mg Documented by: Magnesium Hydroxide (Magnesium Hydroxide Susp 30 Ml Udc) 30 ml PO DAILY PRN PRN Reason: Constipation Stop: 04/18/21 14:08 Propranolol HCl (Propranolol Hcl 10 Mg Tab) 10 mg PO BID JACLYN Stop: 04/22/21 17:49 Last Admin: 03/25/21 08:52 Dose: 10 mg Documented by: Quetiapine Fumarate (Quetiapine Fumarate 100 Mg Tablet) 100 mg PO HS JACLYN Stop: 04/19/21 21:59 Last Admin: 03/24/21 20:27 Dose: 100 mg Documented by: Sodium Chloride (Sodium Chloride 0.65% Na Soln 45 Ml ([place])) 1 - 2 sprays NA PRN PRN PRN Reason: Nasal Dryness/Congestion Stop: 04/18/21 14:08 Tamsulosin HCl (Tamsulosin Hcl 0.4 Mg Cap) 0.4 mg PO HS JACLYN Stop: 04/18/21 21:59 Last Admin: 03/24/21 20:27 Dose: 0.4 mg Documented by: Thiamine HCl (Thiamine Hcl 100 Mg Tab) 100 mg PO QAM JACLYN Stop: 04/19/21 08:59 Last Admin: 03/25/21 08:52 Dose: 100 mg Documented by: Mental Health & Subst Abuse Tx Psychiatrist Name of Psychiatrist: Patricia Gautam Psychiatrist's Therapist Name of Therapist: Patricia Lara Therapist's Supervisor Education Name of Supervisor Education: [facility] Phone Number for Supervisor Education: [phone] Post Discharge Appointments Primary Care Physician Name Of Family Doctor: CARITO Myers Primary Care Provider Appointment Comment: [address], [address], [place] Contact Information Discharge Discharge Address: [address] [place] [address]
[2021-03-25] MEDS: QUEtiapine FUMARATE 25 MG TABLET PO SCH (20:51)
[2021-03-25] MEDS: TAMSULOSIN HCL 0.4 MG CAP PO SCH (20:52)
--- NOTE | 2021-03-26 08:42 | Psychiatric Progress Note ---
Date of Service March 26, 2021 Impression / Recommendations Shruthi Galeano is a 56 yo male with a history of bipolar disorder, primarily depression who has been unable to function without the structure of work, unable to care for self at [facility], now failed placement with a relative resulting in multiple inpatient hospitalizations this year (fourth admission since October 2020). He was non adherent with medication and presented with a possible mixed episode of ronald. Records have also raised the question of possible ASD vs late-onset schizophrenia vs factitious disorder. Diagnostically he presents with very concrete thoughts, flat affect and has difficulty discussing his mood or recent challenges which can all be consistent with ASD but he denies history of difficulty with social communication nor restricted repetitive interests. Family collateral and records review does show history of social communication challenges and oddities. Additionally episode leading to hospital sounds consistent with possible ronald v brief psychotic episode. Remains a confusing diagnostic picture as he has difficulty discussing any bothersome symptoms but there is certainly a component of anxiety and depression and his strikingly flat affect and concrete thought content appears similar to what is seen in a primary psychotic disorder vs severe depression. Other possibilities include early onset neurocognitive disorder like FTD or Parkinson's disease but neurology did not see any signs of dementia and brain MRI showed no significant roy matter or volume changes. Certainly his decompensation since September is a significant change from his prior baseline though outside records also note family previously stated decompensation started 3 years ago. Late-onset schizophrenia is rare but could be possible especially with family history vs MDD with psychotic features v BPAD with ongoing mixed episodes. I'm unsure what to make of his odd clock drawing, change in spontaneity of speech and parkisonism features though certainly Parkinsonism could be side effect from recent Invega Sustenna. Interestingly during all of his recent hospitalizations there has been no observed behaviors of acute ronald nor psychosis but between hospitalizations he engages in odd behaviors (such as disrobing or barking like a dog during a teletherapy session) or becomes agitated toward family members or reports he's had a suicide attempt (though no evidence that he has ever attempted, and collateral and record review notes that at times he has said this to get someone's attention) and refuses to engage with outpatient care (even when family helps him set up the logistical aspects). This could be due to medication non-adherence in the outpatient setting supporting use of the GARNICA long-term to reduce the need for frequent re-hospitalizations. There is also a question of past and more recent overuse of lorazepam which for many years was prescribed for his sleep disorder symptoms, he has not asked for nor is demonstrating any medication seeking behaviors nor any withdrawal signs since admission. Certainly one goal of this hospitalization will continue to be avoiding any lorazepam use given that potentially this has been leading to disinhibition and the odd behaviors and agitation and/or he has been accidentally or intentionally taking too much and potentially going into periods of withdrawal with increased agitation. He received Invega Sustenna 234 mg IM on 03/09/21 and then second dose of 156 mg on 03/13/21. He will be due for his next dose of 76 mg on 04/09/21. The build-up of his GARNICA may also help explain no current symptoms of agitation, ronald, psychosis nor mood symptoms. Completed MOCA with score of 24/30 which is abnormal. He did well with visuospatial/executive though once again put no numbers on his clock. Did well with naming, attention, language, abstraction and orientation. However, he did horribly on the immediate and delayed recall memory sections with 0/5 recall with no cue and 0/5 recall with category cue and only 3/5 recall with multiple c hoice cue. Low MOCA on recall could be due to cognitive blunting effects from his antipsychotic medications though he told me he thinks he's been having issues with his memory for many months though struggled to provided details other than that he gets distracted by other thoughts. As I tried to clarify these thoughts he became more agitated which raises the question again of internal thought blocking and internal stimuli. Today presented with acute distress and agitation that appeared to be driven by possible internal stimuli causing him significant distress. He appeared more relaxed after receiving IM medications.They continue to require inpatient level of care due to due to acute disorganized/bizarre behavior that interferes with ADLs and due to their psychiatric condition causing major disability in social, interpersonal, occupational and/or educational functioning that requires help for safety and stabilization. -201 (1) Bipolar 1 disorder, mixed: 03/26/21-Will be speaking with his brother Mauri this afternoon. Goal of discontinuing seroquel to avoid dual antipsychotics. Since he also required IM olanzapine today, per his request, for possible worsening internal stimuli, will get EKG when he's able to tolerate this to ensure QTc is normal. Will avoid cogentin for now as he's been showing brighter affect and it comes with jacquelin davieszoya for additional cognitive blunting and increases the long-term risk of TD. 03/25/21-Discussed reducing seroquel from 100 mg to 50mg which Froylan consents to, in order to move toward antipsychotic monotherapy with Invega. Propranolol is helping with HTN and seems to be helping with akathisia. Could consider cogentin to see if this lessens EPS symptoms. MOCA score of 24/30, which is abnormal, with all points (except for 1 for no numbers on clock draw) lost on delayed recall. During discussion of his issues with memory he suggested that he gets distracted by internal thoughts and got distressed cut off our conversation at that point which raises suspicion for ongoing internal stimuli and/or thought blocking consistent with primary psychotic disorder which further supports use of Invega GARNICA. 03/24/21--Reviewed records from most recent hospitalization at [facility] from 03/06 through 03/13. Interestingly they were seeing a very similar clinical picture with agitation leading to hospitalization and then no further acute psychiatric symptoms of ronald nor psychosis. They raised consideration for factitious disorder given that Froylan has been known to make statements of SI to seek care an d that he struggles to know how to make social connections in a typical way so this could be a way of him meeting these needs. Was unable to do MOCA due to time constraints so will attempt tomorrow. Propranolol 10mg BID added last night due to concern for worsening akathasia and HTN. Will aim to taper Seroquel to discontinuation with goal of Invega monotherapy but will discuss this further with Froylan and his brother. Given history of medication non-adherence after discharge agree with Invega GARNICA as good long-term option. 03/23/21--Considerable time spent over the last three days reviewing and gathering collateral information from his outpatient provider and family. Awaiting records from most recent hospitalization where he apparently recieved GARNICA Invega. Therefore will not add any additional medications until this is clarified. He is spending more time on the unit but is not socializing and is often observed sitting or walking with staring at the wall with no purposeful activity. Will plan to do MOCA tomorrow. Will check in with Mauri again on Monday afternoon. 03/22/21--Continues to present as very concrete and with flat affect and poor eye contact. Gathering collateral with message left with his outpatient psychiatric and plan to contact his brother today. Likely will proceed with starting latuda with dinner for bipolar depression vs mixed episode after further collateral. Also starting daily schedule to encourage behavioral activation and less isolation to his room and to better assess his level of disorganization. 03/21/21: Lipid panel WNL and reassuring in setting of Seroquel use. Diagnostic picture remains unclear, awaiting a few specific titers from recent CSF but otherwise medical workup has been unremarkable. Will attempt further collateral from patient's brother and outpatient psychiatrist tomorrow. Will continue with seroquel 100 mg qhs. 03/20/21: Increase seroquel to 100mg qhs which patient consented to. Provided with screening questionnaires for OCD (Y-BOCS), BPD (mood disorder questionnaire), depression (PHQ-9) and anxiety (JAREK-7). He twice threw away most questionnaires but did fill out the Y-BOCS which noted some obsessions but few compulsions. 03/19/21: The patient was admitted to the [facility]) on q15 min checks (behavioral with suicide precautions) for safety. The patient will participate in group, recreational, and milieu therapies and will be offered additional individual and family sessions as clinically appropriate. Continue Seroquel this hs. Consider Latuda trial. Will need to discuss options for longer term hospitalization with family and treatment team. MNPR due to recent aggression. Inventory Assets Strengths: intelligent, has outpatient providers and family involvement Needs: supportive housing, extended hospitalization Risk Factors Assessment Male: Yes : Yes Do You Have Access To A Gun?: No Mental Health Diagnoses: Yes Substance Use Disorders: No Previous Attempt: Yes Previous Psychiatric Hospitalization: Yes Protective Factors Assessment Supportive Family: Yes Interval History Identifying Information 56 yo man with history of renal cancer, sleep disorders, depression, and possible BPAD who was admitted following an episode of [id number] aggression toward a family member and difficulty attending to his basic needs. Chief Complaint "No no no no no". Review of Systems Sleep Information Total Hours of Sleep: 6 Sleep Comments: pt appeared to sleep 3 hrs during evening shift. pt on q-15 minute checks Meal Information Percent Meal Consumed - Breakfast: 100 Percent Meal Consumed - Lunch: 100 Percent Meal Consumed - Dinner: 100 Subjective Subjective Patient was seen & assessed and interval progress reviewed with treatment team nursing and social work. He's been following his daily schedule. He's been a little more engaged while in groups including staying for the full hour. He looks a bit brighter. He seems to be potentially agreeable for personal care and is making good eye contact. Continues to appear less restlessness and not staring at staff anymore. When I attempted to meet with him this morning he was noted to be shouting "no" and then as I attempted to check-in with him about what was bothering him he tried to grab some paperwork from my hands. He then required redirection from other staff and ultimately requested IM medication-see my supplement note from today. This afternoon he reported feeling better after receiving the olanzapine IM, denied any physical pain, appeared comfortable and spent time relaxing in the quiet room with the door open. He ate his lunch and was appropriate with interactions with staff. Physical Exam Psychiatric Orientation: alert and oriented x 3 Apperance: appropriately dressed and appropriately groomed Eye Contact: + fair eye contact Motor Behavior: steady gait and station, + EPS (presents with possible masked facies, stiffness) and + akathisia (possible akathisia as he is often pacing but he denies any internal sx); n tremor Speech: normal rate/rhythm/volume of speech Affect: + flat affect Mood: + anxious mood and + irritable mood Thought Process: + perseveration and + concrete thought process Thought Content: + obsessions Suicidal Thoughts: denies suicidal thoughts Homicidal Thoughts: denies homicidal thoughts Hallucinations: + auditory hallucinations (endorsed AH at times;denied they were occuring during episode of agitation ) Cognition: remote memory grossly intact, attention grossly intact and language grossly intact; + recent memory not intact Estimated Intelligence: consistent with education level Insight: + limited insight Judgement: + poor judgement Vital Signs (Past 24 Hours) Last Vital Signs Temp 36.7 C 03/26/21 06:00 Pulse 58 L 03/26/21 06:44 Resp 16 03/26/21 06:00 BP 110/70 03/26/21 06:44 Pulse Ox 95 03/20/21 21:15 Results & Data ([facility]) Current Inpatient Medications Current Inpatient Medications: Current Inpatient Medications Acetaminophen (Acetaminophen 325 Mg Tab) 650 mg PO Q4H PRN PRN Reason: Headache or Minor Fever Stop: 04/18/21 14:08 Al Hydrox/Mg Hydrox/Simethicone (Aluminum/Magnesium Susp 30 Ml Udc) 30 ml PO Q4H PRN PRN Reason: GI Upset Stop: 04/18/21 14:08 Last Admin: 03/20/21 19:41 Dose: 30 ml Documented by: Bismuth Subsalicylate (Bismuth Subsalicylate Liqd 236 Ml) 15 ml PO PRN PRN PRN Reason: Loose Stool Stop: 04/18/21 14:08 Cyanocobalamin (Cyanocobalamin 500 Mcg Tablet (Vitamin B-12)) 1,000 mcg PO DAILY JACLYN Stop: 04/19/21 08:59 Last Admin: 03/25/21 08:52 Dose: 1,000 mcg Documented by: Famotidine (Famotidine 20 Mg Tab) 20 mg PO DAILY JACLYN Stop: 04/19/21 08:59 Last Admin: 03/25/21 08:52 Dose: 20 mg Documented by: Hydroxyzine HCl (Hydroxyzine Hcl 25 Mg Tab) 50 mg PO HSZ PRN PRN Reason: Insomnia Stop: 04/18/21 14:08 Last Admin: 03/23/21 17:45 Dose: 50 mg Documented by: Hydroxyzine HCl (Hydroxyzine Hcl 25 Mg Tab) 25 mg PO Q4H PRN PRN Reason: Anxiety Stop: 04/18/21 14:08 Last Admin: 03/23/21 10:39 Dose: 25 mg Documented by: Loratadine (Loratadine 10 Mg Tab) 10 mg PO DAILY JACLYN Stop: 04/19/21 08:59 Last Admin: 03/25/21 08:52 Dose: 10 mg Documented by: Magnesium Hydroxide (Magnesium Hydroxide Susp 30 Ml Udc) 30 ml PO DAILY PRN PRN Reason: Constipation Stop: 04/18/21 14:08 Propranolol HCl (Propranolol Hcl 10 Mg Tab) 10 mg PO BID JACLYN Stop: 04/22/21 17:49 Last Admin: 03/25/21 20:50 Dose: 10 mg Documented by: Quetiapine Fumarate (Quetiapine Fumarate 25 Mg Tablet) 50 mg PO HS JACLYN Stop: 04/24/21 21:59 Last Admin: 03/25/21 20:51 Dose: 50 mg Documented by: Sodium Chloride (Sodium Chloride 0.65% Na Soln 45 Ml ([place]ling)) 1 - 2 sprays NA PRN PRN PRN Reason: Nasal Dryness/Congestion Stop: 04/18/21 14:08 Tamsulosin HCl (Tamsulosin Hcl 0.4 Mg Cap) 0.4 mg PO HS JACLYN Stop: 04/18/21 21:59 Last Admin: 03/25/21 20:52 Dose: 0.4 mg Documented by: Thiamine HCl (Thiamine Hcl 100 Mg Tab) 100 mg PO QAM JACLYN Stop: 04/19/21 08:59 Last Admin: 03/25/21 08:52 Dose: 100 mg Documented by: Mental Health & Subst Abuse Tx Psychiatrist Name of Psychiatrist: Patricia Gautam Psychiatrist's Therapist Name of Therapist: Patricia Lara Therapist's General Education Instructor Name of General Education Instructor: [facility] Phone Number for General Education Instructor: [phone] Post Discharge Appointments Primary Care Physician Name Of Family Doctor: CARITO Myers Primary Care Provider Appointment Comment: [address] [facility] [facility], [address], [place] Contact Information Discharge Discharge Address: [address] [place] [address]
[2021-03-26] MEDS: CYANOCOBALAMIN 500 MCG TABLET (VITAMIN B-12) PO SCH (08:55)
[2021-03-26] MEDS: LORATADINE 10 MG TAB PO SCH (08:55)
[2021-03-26] MEDS: PROPRANOLOL HCL 10 MG TAB PO SCH ×2 (08:55→20:42)
[2021-03-26] MEDS: THIAMINE HCL 100 MG TAB PO SCH (08:55)
[2021-03-26] MEDS: FAMOTIDINE 20 MG TAB PO SCH (08:55)
[2021-03-26] MEDS ORDERED: OLANZapine 10 MG/2.1 ML SDV IM STA (11:36)
[2021-03-26] MEDS ORDERED: OLANZapine 10 MG/2.1 ML SDV IM ONE (11:37)
--- NOTE | 2021-03-26 11:42 | Communication Note ---
Date of Service: March 26, 2021 At about 11:20am patient was observed shouting "no no no no" in the halls loudly. When staff attempted to comfort him and verbally descalate him tried to he began shouting "I need a shot, I need a shot" repeatedly. We offered him the option of zyprexa 5mg IM which he consented to and vocalized still desiring. Appears to be responding to intensifying internal stimuli which he is seeking relief. Given that he is on GARNICA Invega and still a small dose of seroquel qhs attempting to limit additional antipsychotic burden but in this case given acuity of his psychic distress and agitation from suspected internal stimuli the benefits outweigh the risks. Will attempt to get EKG this afternoon to evaluate QTc if he allows.
--- NOTE | 2021-03-26 17:03 | Communication Note ---
Date of Service: March 26, 2021 Reviewed EKG-QTc normal. Spoke with Mauri for 30minutes to review updates and medications. Discussed his MOCA score, CSF results, and medication changes including plan to discontinue seroquel and initiation of propranolol which he agreed with and liked that it will also offer benefit of potentially reducing some of Froylan's anxiety. Discussed events of earlier today and normal EKG. Mauri shared that Froylan had always been someone who was mildly paranoid and more withdrawn and secretive but that this amplified in recent months and that while he was in the ED in [place] he started to believe that staff were videotaping him and became very paranoid. Mauri felt that his behavior today in response to suspected internal stimuli was very consistent with what the family often sees after he is discharged when he will have episodes of agitation. Additionally Mauri shared that Froylan in the past made a comment about being nervous of driving since he thought he might imagine seeing something. Mauri will plan to try to connect with Dr. Chatterjee when I am off service for similar updates and then he and I made the plan of talking again on Apr 06 and Apr 09 at 4:30pm when I'm back on service.
[2021-03-26] MEDS: hydrOXYzine HCl 25 MG TAB PO PRN (17:29)
[2021-03-26] MEDS: QUEtiapine FUMARATE 25 MG TABLET PO SCH (20:42)
[2021-03-26] MEDS: TAMSULOSIN HCL 0.4 MG CAP PO SCH (20:43)
[2021-03-27] MEDS: CYANOCOBALAMIN 500 MCG TABLET (VITAMIN B-12) PO SCH (08:37)
[2021-03-27] MEDS: PROPRANOLOL HCL 10 MG TAB PO SCH ×2 (08:37→20:07)
[2021-03-27] MEDS: FAMOTIDINE 20 MG TAB PO SCH (08:37)
[2021-03-27] MEDS: LORATADINE 10 MG TAB PO SCH (08:37)
[2021-03-27] MEDS: THIAMINE HCL 100 MG TAB PO SCH (08:37)
--- NOTE | 2021-03-27 10:37 | Psychiatric Progress Note ---
Date of Service March 27, 2021 Impression / Recommendations Shruthi Galeano is a 56 yo male with a history of bipolar disorder, primarily depression who has been unable to function without the structure of work, unable to care for self at [facility], now failed placement with a relative resulting in multiple inpatient hospitalizations this year (fourth admission since October 2020). He was non adherent with medication and presented with a possible mixed episode of ronald. Records have also raised the question of possible ASD vs late-onset schizophrenia vs factitious disorder. Diagnostically he presents with very concrete thoughts, flat affect and has difficulty discussing his mood or recent challenges which can all be consistent with ASD but he denies history of difficulty with social communication nor restricted repetitive interests. Family collateral and records review does show history of social communication challenges and oddities. Additionally episode leading to hospital sounds consistent with possible ronald v brief psychotic episode. Per Dr. Jamison: Remains a confusing diagnostic picture as he has difficulty discussing any bothersome symptoms but there is certainly a component of anxiety and depression and his strikingly flat affect and concrete thought content appears similar to what is seen in a primary psychotic disorder vs severe depression. Other possibilities include early onset neurocognitive disorder like FTD or Parkinson's disease but neurology did not see any signs of dementia and brain MRI showed no significant roy matter or volume changes. Certainly his decompensation since September is a significant change from his prior baseline [facility] outside records also note family previously stated decompensation started 3 years ago. Late-onset schizophrenia is rare but could be possible especially with family history vs MDD with psychotic features v BPAD with ongoing mixed episodes. I'm unsure what to make of his odd clock drawing, change in spontaneity of speech and parkisonism features though certainly Parkinsonism could be side effect from recent Invega Sustenna. Interestingly during all of his recent hospitalizations there has been no observed behaviors of acute ronald nor psychosis but between hospitalizations he engages in odd behaviors (such as disrobing or barking like a dog during a teletherapy session) or becomes agitated toward family members or reports he's had a suicide attempt (though no evidence that he has ever attempted, and collateral and record review notes that at times he has said this to get someone's attention) and refuses to engage with outpatient care (even when family helps him set up the logistical aspects). This could be due to medication non-adherence in the outpatient setting supporting use of the GARNICA long-term to reduce the need for frequent re-hospitalizations. There is also a question of past and more recent overuse of lorazepam which for many years was prescribed for his sleep disorder symptoms, he has not asked for nor is demonstrating any medication seeking behaviors nor any withdrawal signs since admission. Certainly one goal of this hospitalization will continue to be avoiding any lorazepam use given that potentially this has been leading to disinhibition and the odd behaviors and agitation and/or he has been accidentally or intentionally taking too much and potentially going into periods of withdrawal with increased agitation. He received Invega Sustenna 234 mg IM on 03/09/21 and then second dose of 156 mg on 03/13/21. He will be due for his next dose of 76 mg on 04/09/21. The build-up of his GARNICA may also help explain no current symptoms of agitation, ronald, psychosis nor mood symptoms. Completed MOCA with score of 24/30 which is abnormal. He did well with visuospatial/executive though once again put no numbers on his clock. Did well with naming, attention, language, abstraction and orientation. However, he did horribly on the immediate and delayed recall memory sections with 0/5 recall with no cue and 0/5 recall with category cue and only 3/5 recall with multiple choice cue. Low MOCA on recall could be due to cognitive blunting effects from his antipsychotic medications though he told me he thinks he's been having issues with his memory for many months though struggled to provided details other than that he gets distracted by other thoughts. As I tried to clarify these thoughts he became more agitated which raises the question again of internal thought blocking and internal stimuli. 03/27/21: calmer but very resistant to discussing treatment needs. (1) Bipolar 1 disorder, mixed: 03/27/21--interim care reviewed, plan is to taper and discontinue Seroquel due to potential for additive EPS on Invega sustenna. 03/26/21-Will be speaking with his brother Mauri this afternoon. Goal of discontinuing seroquel to avoid dual antipsychotics. Since he also required IM olanzapine today, per his request, for possible worsening internal stimuli, will get EKG when he's able to tolerate this to ensure QTc is normal. Will avoid cogentin for now as he's been showing brighter affect and it comes with potential for additional cognitive blunting and increases the long-term risk of TD. 03/25/21-Discussed reducing seroquel from 100 mg to 50mg which Froylan consents to, in order to move toward antipsychotic monotherapy with Invega. Propranolol is helping with HTN and seems to be helping with akathisia. Could consider cogentin to see if this lessens EPS symptoms. MOCA score of 24/30, which is abnormal, with all points (except for 1 for no numbers on clock draw) lost on delayed recall. During discussion of his issues with memory he suggested that he gets distracted by internal thoughts and got distressed cut off our conversation at that point which raises suspicion for ongoing internal stimuli and/or thought blocking consistent with primary psychotic disorder which further supports use of Invega GARNICA. 03/24/21--Reviewed records from most recent hospitalization at [facility] from 03/06 through 03/13. Interestingly they were seeing a very similar clinical picture with agitation leading to hospitalization and then no further acute psychiatric symptoms of ronald nor psychosis. They raised consideration for factitious disorder given that Froylan has been known to make statements of SI to seek care and that he struggles to know how to make social connections in a typical way so this could be a way of him meeting these needs. Was unable to do MOCA due to time constraints so will attempt tomorrow. Propranolol 10mg BID added last night due to concern for worsening akathasia and HTN. Will aim to taper Seroquel to discontinuation with goal of Invega monotherapy but will discuss this further with Froylan and his brother. Given history of medication non-adherence after di alex agree with Invega GARNICA as good long-term option. 03/23/21--Considerable time spent over the last three days reviewing and gathering collateral information from his outpatient provider and family. Awaiting records from most recent hospitalization where he apparently recieved GARNICA Invega. Therefore will not add any additional medications until this is clarified. He is spending more time on the unit but is not socializing and is often observed sitting or walking with staring at the wall with no purposeful activity. Will plan to do MOCA tomorrow. Will check in with Mauri again on Monday afternoon. 03/22/21--Continues to present as very concrete and with flat affect and poor eye contact. Gathering collateral with message left with his outpatient psychiatric and plan to contact his brother today. Likely will proceed with starting latuda with dinner for bipolar depression vs mixed episode after further collateral. Also starting daily schedule to encourage behavioral activation and less isolation to his room and to better assess his level of disorganization. 03/21/21: Lipid panel WNL and reassuring in setting of Seroquel use. Diagnostic picture remains unclear, awaiting a few specific titers from recent CSF but otherwise medical workup has been unremarkable. Will attempt further collateral from patient's brother and outpatient psychiatrist tomorrow. Will continue with seroquel 100 mg qhs. 03/20/21: Increase seroquel to 100mg qhs which patient consented to. Provided with screening questionnaires for OCD (Y-BOCS), BPD (mood disorder questionnaire), depression (PHQ-9) and anxiety (JAREK-7). He twice threw away most questionnaires but did fill out the Y-BOCS which noted some obsessions but few compulsions. 03/19/21: The patient was admitted to the [facility] on q15 min checks (behavioral with suicide precautions) for safety. The patient will participate in group, recreational, and milieu therapies and will be offered additional individual and family sessions as clinically appropriate. Continue Seroquel this hs. Consider Latuda trial. Will need to discuss options for longer term hospitalization with family and treatment team. MNPR due to recent aggression. Inventory Assets Strengths: intelligent, has outpatient providers and family involvement Needs: supportive housing, extended hospitalization Risk Factors Assessment Male: Yes : Yes Do You Have Access To A Gun?: No Mental Health Diagnoses: Yes Substance Use Disorders: No Previous Attempt: Yes Previous Psychiatric Hospitalization: Yes Protective Factors Assessment Supportive Family: Yes Interval History Identifying Information 56 yo man with history of renal cancer, sleep disorders, depression, and possible BPAD who was admitted following an episode of [id number] aggression toward a family member and difficulty attending to his basic needs. Chief Complaint "I'm feeling calmer today but really can't handle talking about where I'm going to live". Review of Systems Sleep Information Total Hours of Sleep: 6.5 Sleep Comments: pt appeared to sleep 3 hrs during evening shift. pt on q-15 minute checks Meal Information Percent Meal Consumed - Breakfast: 100 Percent Meal Consumed - Lunch: 100 Percent Meal Consumed - Dinner: 100 Subjective Subjective Patient was seen & assessed and interval progress reviewed with nursing and social work. Required IM Zyprexa last pm due to outburst after interactions around personal half-way referral as he wants to return to his apartment (meaning trailer). Family does not support this and he has been unable to maintain himself outside of the hospital in recent months even with family support and has only become less compliant with medications and even aggressive. Physical Exam Psychiatric Orientation: alert and oriented x 3 Apperance: appropriately dressed and appropriately groomed Eye Contact: + fair eye contact and + poor eye contact Motor Behavior: steady gait and station, no abnormal motor movements and + EPS (presents with possible masked facies); n akathisia and n tremor Speech: normal rate/rhythm/volume of speech Affect: + depressed affect and + flat affect Mood: + anxious mood; no depressed mood Thought Process: + perseveration and + concrete thought process Thought Content: + obsessions; no delusions Suicidal Thoughts: denies suicidal thoughts Homicidal Thoughts: denies homicidal thoughts Hallucinations: no auditory hallucinations ( ) and no visual hallucinations Cognition: remote memory grossly intact, attention grossly intact and language grossly intact; + recent memory not intact Estimated Intelligence: consistent with education level Insight: + limited insight Judgement: + poor judgement Vital Signs (Past 24 Hours) Last Vital Signs Temp 37.0 C 03/27/21 07:01 Pulse 86 03/27/21 07:01 Resp 14 03/27/21 07:01 BP 124/73 03/27/21 07:02 Pulse Ox 95 03/20/21 21:15 Results & Data ([facility]) Current Inpatient Medications Current Inpatient Medications: Current Inpatient Medications Acetaminophen (Acetaminophen 325 Mg Tab) 650 mg PO Q4H PRN PRN Reason: Headache or Minor Fever Stop: 04/18/21 14:08 Al Hydrox/Mg Hydrox/Simethicone (Aluminum/Magnesium Susp 30 Ml Udc) 30 ml PO Q4H PRN PRN Reason: GI Upset Stop: 04/18/21 14:08 Last Admin: 03/20/21 19:41 Dose: 30 ml Documented by: Bismuth Subsalicylate (Bismuth Subsalicylate Liqd 236 Ml) 15 ml PO PRN PRN PRN Reason: Loose Stool Stop: 04/18/21 14:08 Cyanocobalamin (Cyanocobalamin 500 Mcg Tablet (Vitamin B-12)) 1,000 mcg PO DAILY JACLYN Stop: 04/19/21 08:59 Last Admin: 03/27/21 08:37 Dose: 1,000 mcg Documented by: Famotidine (Famotidine 20 Mg Tab) 20 mg PO DAILY JACLYN Stop: 04/19/21 08:59 Last Admin: 03/27/21 08:37 Dose: 20 mg Documented by: Hydroxyzine HCl (Hydroxyzine Hcl 25 Mg Tab) 50 mg PO HSZ PRN PRN Reason: Insomnia Stop: 04/18/21 14:08 Last Admin: 03/23/21 17:45 Dose: 50 mg Documented by: Hydroxyzine HCl (Hydroxyzine Hcl 25 Mg Tab) 25 mg PO Q4H PRN PRN Reason: Anxiety Stop: 04/18/21 14:08 Last Admin: 03/26/21 17:29 Dose: 25 mg Documented by: Loratadine (Loratadine 10 Mg Tab) 10 mg PO DAILY JACLYN Stop: 04/19/21 08:59 Last Admin: 03/27/21 08:37 Dose: 10 mg Documented by: Magnesium Hydroxide (Magnesium Hydroxide Susp 30 Ml Udc) 30 ml PO DAILY PRN PRN Reason: Constipation Stop: 04/18/21 14:08 Propranolol HCl (Propranolol Hcl 10 Mg Tab) 10 mg PO BID JACLYN Stop: 04/22/21 17:49 Last Admin: 03/27/21 08:37 Dose: 10 mg Documented by: Quetiapine Fumarate (Quetiapine Fumarate 25 Mg Tablet) 50 mg PO HS JACLYN Stop: 04/24/21 21:59 Last Admin: 03/26/21 20:42 Dose: 50 mg Documented by: Sodium Chloride (Sodium Chloride 0.65% Na Soln 45 Ml (Tehama)) 1 - 2 sprays NA PRN PRN PRN Reason: Nasal Dryness/Congestion Stop: 04/18/21 14:08 Tamsulosin HCl (Tamsulosin Hcl 0.4 Mg Cap) 0.4 mg PO HS JACLYN Stop: 04/18/21 21:59 Last Admin: 03/26/21 20:43 Dose: 0.4 mg Documented by: Thiamine HCl (Thiamine Hcl 100 Mg Tab) 100 mg PO QAM JACLYN Stop: 04/19/21 08:59 Last Admin: 03/27/21 08:37 Dose: 100 mg Documented by: Mental Health & Subst Abuse Tx Psychiatrist Name of Psychiatrist: Patricia Gautam Psychiatrist's Therapist Name of Therapist: Patricia Lara Therapist's Stator W[facility] Name of Stator Winder: [facility] Phone Number for Stator Winder: [phone] Post Discharge Appointments Primary Care Physician Name Of Family Doctor: CARITO Myers Primary Care Provider Appointment Comment: [address], [address], [place] Contact Information Discharge Discharge Address: [address] [place] [address]
--- NOTE | 2021-03-27 14:00 | Electrocardiogram Report ---
Test Reason : Blood Pressure : / mmHG Vent. Rate : 062 BPM Atrial Rate : 062 BPM P-R Int : 152 ms QRS Dur : 078 ms QT Int : 412 ms P-R-T Axes : 019 036 034 degrees QTc Int : 418 ms Poor data quality, interpretation may be adversely affected Normal sinus rhythm Normal ECG No previous ECGs available Confirmed by Dayron Ya ([id number]) on 03/27/2021 2:00:11 PM Referred By: Lyndsey Chatterjee Confirmed By:Dayron Ya
[2021-03-27] MEDS: TAMSULOSIN HCL 0.4 MG CAP PO SCH (20:07)
[2021-03-27] MEDS: hydrOXYzine HCl 25 MG TAB PO PRN (20:50)
[2021-03-27] MEDS ORDERED: QUEtiapine FUMARATE 25 MG TABLET PO SCH (22:00)
[2021-03-28] MEDS: LORATADINE 10 MG TAB PO SCH (09:04)
[2021-03-28] MEDS: THIAMINE HCL 100 MG TAB PO SCH (09:04)
[2021-03-28] MEDS: FAMOTIDINE 20 MG TAB PO SCH (09:04)
[2021-03-28] MEDS: CYANOCOBALAMIN 500 MCG TABLET (VITAMIN B-12) PO SCH (09:04)
--- NOTE | 2021-03-28 16:59 | Psychiatric Progress Note ---
Date of Service March 28, 2021 Impression / Recommendations Shruthi Galeano is a 56 yo male with a history of bipolar disorder, primarily depression who has been unable to function without the structure of work, unable to care for self at [facility], now failed placement with a relative resulting in multiple inpatient hospitalizations this year (fourth admission since October 2020). He was non adherent with medication and presented with a possible mixed episode of ronald. Records have also raised the question of possible ASD vs late-onset schizophrenia vs factitious disorder. Diagnostically he presents with very concrete thoughts, flat affect and has difficulty discussing his mood or recent challenges which can all be consistent with ASD but he denies history of difficulty with social communication nor restricted repetitive interests. Family collateral and records review does show history of social communication challenges and oddities. Additionally episode leading to hospital sounds consistent with possible ronald v brief psychotic episode. Per Dr. Jamison: Remains a confusing diagnostic picture as he has difficulty discussing any bothersome symptoms but there is certainly a component of anxiety and depression and his strikingly flat affect and concrete thought content appears similar to what is seen in a primary psychotic disorder vs severe depression. Other possibilities include early onset neurocognitive disorder like FTD or Parkinson's disease but neurology did not see any signs of dementia and brain MRI showed no significant roy matter or volume changes. Certainly his decompensation since September is a significant change from his prior baseline [facility] outside records also note family previously stated decompensation started 3 years ago. Late-onset schizophrenia is rare but could be possible especially with family history vs MDD with psychotic features v BPAD with ongoing mixed episodes. I'm unsure what to make of his odd clock drawing, change in spontaneity of speech and parkisonism features though certainly Parkinsonism could be side effect from recent Invega Sustenna. Interestingly during all of his recent hospitalizations there has been no observed behaviors of acute ronald nor psychosis but between hospitalizations he engages in odd behaviors (such as disrobing or barking like a dog during a teletherapy session) or becomes agitated toward family members or reports he's had a suicide attempt (though no evidence that he has ever attempted, and collateral and record review notes that at times he has said this to get someone's attention) and refuses to engage with outpatient care (even when family helps him set up the logistical aspects). This could be due to medication non-adherence in the outpatient setting supporting use of the GARNICA long-term to reduce the need for frequent re-hospitalizations. There is also a question of past and more recent overuse of lorazepam which for many years was prescribed for his sleep disorder symptoms, he has not asked for nor is demonstrating any medication seeking behaviors nor any withdrawal signs since admission. Certainly one goal of this hospitalization will continue to be avoiding any lorazepam use given that potentially this has been leading to disinhibition and the odd behaviors and agitation and/or he has been accidentally or intentionally taking too much and potentially going into periods of withdrawal with increased agitation. He received Invega Sustenna 234 mg IM on 03/09/21 and then second dose of 156 mg on 03/13/21. He will be due for his next dose of 76 mg on 04/09/21. The build-up of his GARNICA may also help explain no current symptoms of agitation, ronald, psychosis nor mood symptoms. Completed MOCA with score of 24/30 which is abnormal. He did well with visuospatial/executive though once again put no numbers on his clock. Did well with naming, attention, language, abstraction and orientation. However, he did horribly on the immediate and delayed recall memory sections with 0/5 recall with no cue and 0/5 recall with category cue and only 3/5 recall with multiple choice cue. Low MOCA on recall could be due to cognitive blunting effects from his antipsychotic medications though he told me he thinks he's been having issues with his memory for many months though struggled to provided details other than that he gets distracted by other thoughts. As I tried to clarify these thoughts he became more agitated which raises the question again of internal thought blocking and internal stimuli. 03/28/21: intermittent anxiety, cannot exclude sundowning (1) Bipolar 1 disorder, mixed: 03/28/21--shift hs meds earlier. Remains unable to care for self outside of the hospital. It does not seem in patient's best interest to continue Invega given overall appearance. 03/27/21--interim care reviewed, plan is to taper and discontinue Seroquel due to potential for additive EPS on Invega sustenna. 03/26/21-Will be speaking with his brother Mauri this afternoon. Goal of discontinuing seroquel to avoid dual antipsychotics. Since he also required IM olanzapine today, per his request, for possible worsening internal stimuli, will get EKG when he's able to tolerate this to ensure QTc is normal. Will avoid cogentin for now as he's been showing brighter affect and it comes with potential for additional cognitive blunting and increases the long-term risk of TD. 03/25/21-Discussed reducing seroquel from 100 mg to 50mg which Froylan consents to, in order to move toward antipsychotic monotherapy with Invega. Propranolol is helping with HTN and seems to be helping with akathisia. Could consider cogentin to see if this lessens EPS symptoms. MOCA score of 24/30, which is abnormal, with all points (except for 1 for no numbers on clock draw) lost on delayed recall. During discussion of his issues with memory he suggested that he gets distracted by internal thoughts and got distressed cut off our conversation at that point which raises suspicion for ongoing internal stimuli and/or thought blocking consistent with primary psychotic disorder which further supports use of Invega GARNICA. 03/24/21--Reviewed records from most recent hospitalization at [facility] from 03/06 through 03/13. Interestingly they were seeing a very similar clinical picture with agitation leading to hospitalization and then no further acute psychiatric symptoms of ronald nor psychosis. They raised consideration for factitious disorder given that Froylan has been known to make statements of SI to seek care and that he struggles to know how to make social connections in a typical way so this could be a way of him meeting these needs. Was unable to do MOCA due to time constraints so will attempt tomorrow. Propranolol 10mg BID added last night due to concern for worsening akathasia and HTN. Will aim to taper Seroquel to discontinuation with goal of Invega monotherapy but will discuss this further with Froylan and his brother. Given history of medication non-adherence after discharge agree with Invega GARNICA as good long-term option. 03/23/21--Considerable time spent over the last three days reviewing and gathering collateral information from his outpatient provider and family. Awaiting records from most recent hospitalization where he apparently recieved GARNICA Invega. Therefore will not add any additional medications until this is clarified. He is spending more time on the unit but is not socializing and is often observed sitting or walking with staring at the wall with no purposeful activity. Will plan to do MOCA tomorrow. Will check in with Mauri again on Monday afternoon. 03/22/21--Continues to present as very concrete and with flat affect and poor eye contact. Gathering collateral with message left with his outpatient psychiatric and plan to contact his brother today. Likely will proceed with starting latuda with dinner for bipolar depression vs mixed episode after further collateral. Also starting daily schedule to encourage behavioral activation and less isolation to his room and to better assess his level of disorganization. 03/21/21: Lipid panel WNL and reassuring in setting of Seroquel use. Diagnostic picture remains unclear, awaiting a few specific titers from recent CSF but otherwise medical workup has been unremarkable. Will attempt further collateral from patient's brother and outpatient psychiatrist tomorrow. Will continue with seroquel 100 mg qhs. 03/20/21: Increase seroquel to 100mg qhs which patient consented to. Provided with screening questionnaires for OCD (Y-BOCS), BPD (mood disorder questionnaire), depression (PHQ-9) and anxiety (JAREK-7). He twice threw away most questionnaires but did fill out the Y-BOCS which noted some obsessions but few compulsions. 03/19/21: The patient was admitted to the [facility] ([facility] mental health unit) on q15 min checks (behavioral with suicide precautions) for safety. The patient will participate in group, recreational, and milieu therapies and will be offered additional individual and family sessions as clinically appropriate. Continue Seroquel this hs. Consider Latuda trial. Will need to discuss options for longer term hospitalization with family and treatment team. MNPR due to recent aggression. Inventory Assets Strengths: intelligent, has outpatient providers and family involvement Needs: supportive housing, extended hospitalization Risk Factors Assessment Male: Yes : Yes Do You Have Access To A Gun?: No Mental Health Diagnoses: Yes Substance Use Disorders: No Previous Attempt: Yes Previous Psychiatric Hospitalization: Yes Protective Factors Assessment Supportive Family: Yes Interval History Identifying Information 56 yo man with history of renal cancer, sleep disorders, depression, and possible BPAD who was admitted following an episode of [id number] aggression toward a family member and difficulty attending to his basic needs. Chief Complaint "I feel fine now", referring to leg weakness resolving. Review of Systems Sleep Information Total Hours of Sleep: 4 Sleep Comments: pt appeared to sleep 3 hrs during evening shift. pt on q-15 minute checks Meal Information Percent Meal Consumed - Breakfast: 100 Percent Meal Consumed - Lunch: 100 Percent Meal Consumed - Dinner: 100 Subjective Subjective Patient was seen & assessed and interval progress reviewed with nursing and social work. Patient was increasingly anxious on evening shift, somatic after unable to get pm meds early. woke up overnight (?related to Seroquel taper) and I was contacted around 5:30 am that patient was concerned about leg weakness (no pain or gait disturbance, no rigidity) continues with parkinsonian appearance. Physical Exam Psychiatric Orientation: alert Apperance: appropriately dressed and appropriately groomed Eye Contact: + fair eye contact Motor Behavior: no abnormal motor movements Speech: + abnormal rate/rhythm/volume of speech nonspontaneous Affect: + flat affect Mood: + depressed mood Thought Process: + concrete thought process Thought Content: reality based without delusions Suicidal Thoughts: denies suicidal thoughts Homicidal Thoughts: denies homicidal thoughts Hallucinations: no auditory hallucinations and no visual hallucinations Cognition: language grossly intact Estimated Intelligence: consistent with education level Insight: + limited insight Judgement: + limited judgement Vital Signs (Past 24 Hours) Last Vital Signs Temp 36.5 C 03/28/21 06:43 Pulse 83 03/28/21 06:44 Resp 18 03/28/21 06:43 BP 142/90 H 03/28/21 06:44 Pulse Ox 95 03/20/21 21:15 Results & Data ([facility]) Current Inpatient Medications Current Inpatient Medications: Current Inpatient Medications Acetaminophen (Acetaminophen 325 Mg Tab) 650 mg PO Q4H PRN PRN Reason: Headache or Minor Fever Stop: 04/18/21 14:08 Al Hydrox/Mg Hydrox/Simethicone (Aluminum/Magnesium Susp 30 Ml Udc) 30 ml PO Q4H PRN PRN Reason: GI Upset Stop: 04/18/21 14:08 Last Admin: 03/20/21 19:41 Dose: 30 ml Documented by: Bismuth Subsalicylate (Bismuth Subsalicylate Liqd 236 Ml) 15 ml PO PRN PRN PRN Reason: Loose Stool Stop: 04/18/21 14:08 Cyanocobalamin (Cyanocobalamin 500 Mcg Tablet (Vitamin B-12)) 1,000 mcg PO DAILY JACLYN Stop: 04/19/21 08:59 Last Admin: 03/28/21 09:04 Dose: 1,000 mcg Documented by: Famotidine (Famotidine 20 Mg Tab) 20 mg PO DAILY JACLYN Stop: 04/19/21 08:59 Last Admin: 03/28/21 09:04 Dose: 20 mg Documented by: Hydroxyzine HCl (Hydroxyzine Hcl 25 Mg Tab) 50 mg PO HSZ PRN PRN Reason: Insomnia Stop: 04/18/21 14:08 Last Admin: 03/27/21 20:50 Dose: 50 mg Documented by: Hydroxyzine HCl (Hydroxyzine Hcl 25 Mg Tab) 25 mg PO Q4H PRN PRN Reason: Anxiety Stop: 04/18/21 14:08 Last Admin: 03/26/21 17:29 Dose: 25 mg Documented by: Loratadine (Loratadine 10 Mg Tab) 10 mg PO DAILY JACLYN Stop: 04/19/21 08:59 Last Admin: 03/28/21 09:04 Dose: 10 mg Documented by: Magnesium Hydroxide (Magnesium Hydroxide Susp 30 Ml Udc) 30 ml PO DAILY PRN PRN Reason: Constipation Stop: 04/18/21 14:08 Propranolol HCl (Propranolol Hcl 10 Mg Tab) 10 mg PO BID JACLYN Stop: 04/22/21 17:49 Last Admin: 03/27/21 20:07 Dose: 10 mg Documented by: Quetiapine Fumarate (Quetiapine Fumarate 25 Mg Tablet) 25 mg PO TODAY@1929 [facility] Stop: 03/28/21 19:31 Sodium Chloride (Sodium Chloride 0.65% Na Soln 45 Ml ([place])) 1 - 2 sprays NA PRN PRN PRN Reason: Nasal Dryness/Congestion Stop: 04/18/21 14:08 Tamsulosin HCl (Tamsulosin Hcl 0.4 Mg Cap) 0.4 mg PO TODAY@1930 [facility] Stop: 04/27/21 19:29 Thiamine HCl (Thiamine Hcl 100 Mg Tab) 100 mg PO QAM JACLYN Stop: 04/19/21 08:59 Last Admin: 03/28/21 09:04 Dose: 100 mg Documented by: Mental Health & Subst Abuse Tx Psychiatrist Name of Psychiatrist: Patricia Gautam Psychiatrist's Therapist Name of Therapist: Patricia Lara Therapist's English And Reading Instructor Name of English And Reading Instructor: [facility] Phone Number for English And Reading Instructor: [phone] Post Discharge Appointments Primary Care Physician Name Of Family Doctor: CARITO Myers Primary Care Provider Appointment Comment: [address] [facility] [facility], [address], [place] Contact Information Discharge Discharge Address: [address] [place] [address]
[2021-03-28] MEDS ORDERED: QUEtiapine FUMARATE 25 MG TABLET PO SCH (19:30)
[2021-03-28] MEDS: TAMSULOSIN HCL 0.4 MG CAP PO SCH (19:53)
[2021-03-28] MEDS: PROPRANOLOL HCL 10 MG TAB PO SCH (19:53)
--- NOTE | 2021-03-29 06:06 | Psychiatric Progress Note ---
Date of Service March 29, 2021 Impression / Recommendations Impression Froylan is a 56 yo male with a history of bipolar disorder, primarily depression who has been unable to function without the structure of work, unable to care for self at [facility], now failed placement with a relative resulting in multiple inpatient hospitalizations this year (fourth admission since October 2020). He was non adherent with medication and presented with a possible mixed episode of ronald. Records have also raised the question of possible ASD vs late-onset schizophrenia vs factitious disorder. Diagnostically he presents with very concrete thoughts, flat affect and has difficulty discussing his mood or recent challenges which can all be consistent with ASD but he denies history of difficulty with social communication nor restricted repetitive interests. Family collateral and records review does show history of social communication challenges and oddities. Additionally episode leading to hospital sounds consistent with possible ronald v brief psychotic episode. Additional differential includes side effect Invega, neurocognitive disorder (PICK's disease) though was assessed by neurology. MOCA completed, abnormal clock drawing 03/29/21: intermittent anxiety, odd social behavior (1) Bipolar 1 disorder, mixed: 03/29/21: personal care referral as a diversion option as otherwise considering [facility]. 03/28/21--shift hs meds earlier. Remains unable to care for self outside of the hospital. It does not seem in patient's best interest to continue Invega given overall appearance. 03/27/21--interim care reviewed, plan is to taper and discontinue Seroquel due to potential for additive EPS on Invega sustenna. 03/26/21-Will be speaking with his brother Mauri this afternoon. Goal of discontinuing seroquel to avoid dual antipsychotics. Since he also required IM olanzapine today, per his request, for possible worsening internal stimuli, will get EKG when he's able to tolerate this to ensure QTc is normal. Will avoid cogentin for now as he's been showing brighter affect and it comes with potential for additional cognitive blunting and increases the long-term risk of TD. 03/25/21-Discussed reducing seroquel from 100 mg to 50mg which Froylan consents to, in order to move toward antipsychotic monotherapy with Invega. Propranolol is helping with HTN and seems to be helping with akathisia. Could consider cogentin to see if this lessens EPS symptoms. MOCA score of 2430, which is abnormal, with all points (except for 1 for no numbers on clock draw) lost on delayed recall. During discussion of his issues with memory he suggested that he gets distracted by internal thoughts and got distressed cut off our conversation at that point which raises suspicion for ongoing internal stimuli and/or thought blocking consistent with primary psychotic disorder which further supports use of Invega GARNICA. 03/24/21--Reviewed records from most recent hospitalization at [facility] from 03/06 through 03/13. Interestingly they were seeing a very similar clinical picture with agitation leading to hospitalization and then no further acute psychiatric symptoms of ronald nor psychosis. They raised consideration for factitious disorder given that Froylan has been known to make statements of SI to seek care and that he struggles to know how to make social connections in a typical way so this could be a way of him meeting these needs. Was unable to do MOCA due to time constraints so will attempt tomorrow. Propranolol 10mg BID added last night due to concern for worsening akathasia and HTN. Will aim to taper Seroquel to discontinuation with goal of Invega monotherapy but will discuss this further with Froylan and his brother. Given history of medication non-adherence after discharge agree with Invega GARNICA as good long-term option. 03/23/21--Considerable time spent over the last three days reviewing and gathering collateral information from his outpatient provider and family. Awaiting records from most recent hospitalization where he apparently recieved GARNICA Invega. Therefore will not add any additional medications until this is clarified. He is spending more time on the unit but is not socializing and is often observed sitting or walking with staring at the wall with no purposeful activity. Will plan to do MOCA tomorrow. Will check in with Mauri again on Monday afternoon. 03/22/21--Continues to present as very concrete and with flat affect and poor eye contact. Gathering collateral with message left with his outpatient psychiatric and plan to contact his brother today. Likely will proceed with starting latuda with dinner for bipolar depression vs mixed episode after further collateral. Also starting daily schedule to encourage behavioral activation and less isolation to his room and to better assess his level of disorganization. 03/21/21: Lipid panel WNL and reassuring in setting of Seroquel use. Diagnostic picture remains unclear, awaiting a few specific titers from recent CSF but otherwise medical workup has been unremarkable. Will attempt further collateral from patient's brother and outpatient psychiatrist tomorrow. Will continue with seroquel 100 mg qhs. 03/20/21: Increase seroquel to 100mg qhs which patient consented to. Provided with screening questionnaires for OCD (Y-BOCS), BPD (mood disorder questionnaire), depression (PHQ-9) and anxiety (JAREK-7). He twice threw away most questionnaires but did fill out the Y-BOCS which noted some obsessions but few compulsions. 03/19/21: The patient was admitted to the [facility] ([facility] mental health unit) on q15 min checks (behavioral with suicide precautions) for safety. The patient will participate in group, recreational, and milieu therapies and will be offered additional individual and family sessions as clinically appropriate. Continue Seroquel this hs. Consider Latuda trial. Will need to discuss options for longer term hospitalization with family and treatment team. MNPR due to recent aggression. Inventory Assets Strengths: intelligent, has outpatient providers and family involvement Needs: supportive housing, extended hospitalization Risk Factors Assessment Male: Yes : Yes Do You Have Access To A Gun?: No Mental Health Diagnoses: Yes Substance Use Disorders: No Previous Attempt: Yes Previous Psychiatric Hospitalization: Yes Protective Factors Assessment Supportive Family: Yes Interval History Identifying Information 56 yo man with history of renal cancer, sleep disorders, depression, and possible BPAD who was admitted following an episode of [id number] aggression toward a family member and difficulty attending to his basic needs. Multiple psychiatric hospitalizations over the course of last 6 months, failed placement with all available family options with escalation in agitated behavior prior to this admission necessitating medical admission for intubation. Chief Complaint "I'm here to talk discharge today" Review of Systems Sleep Information Total Hours of Sleep: 4 Meal Information Percent Meal Consumed - Breakfast: 100 Percent Meal Consumed - Lunch: 100 Percent Meal Consumed - Dinner: 100 Subjective Subjective Patient was seen & assessed and interval progress reviewed with treatment team. Patient continues to lack insight into his condition. He spent much of day in the bathroom yesterday to avoid people and admittedly not a great fit with his roommate who uses bedside urinal. Discussed his inability to return to his trailer and need for personal senior living. He tolerated the discussion and is now willing to sign appropriate releases. He feels he is sleeping fine and doesn't attribute the shift in sleep to any medication change. No akathisia. Physical Exam Psychiatric Orientation: alert Apperance: appropriately dressed and appropriately groomed Eye Contact: + poor eye contact Motor Behavior: no abnormal motor movements Speech: + abnormal rate/rhythm/volume of speech Affect: + flat affect Mood: + anxious mood; no depressed mood Thought Process: + concrete thought process Thought Content: no delusions Suicidal Thoughts: denies suicidal thoughts Homicidal Thoughts: denies homicidal thoughts Hallucinations: no auditory hallucinations and no visual hallucinations Cognition: language grossly intact; + attention not intact Estimated Intelligence: consistent with education level Vital Signs (Past 24 Hours) Last Vital Signs Temp 37.1 C 03/28/21 21:46 Pulse 83 03/28/21 06:44 Resp 18 03/28/21 06:43 BP 142/90 H 03/28/21 06:44 Pulse Ox 95 03/20/21 21:15 Results & Data ([facility]) Current Inpatient Medications Current Inpatient Medications: Current Inpatient Medications Acetaminophen (Acetaminophen 325 Mg Tab) 650 mg PO Q4H PRN PRN Reason: Headache or Minor Fever Stop: 04/18/21 14:08 Al Hydrox/Mg Hydrox/Simethicone (Aluminum/Magnesium Susp 30 Ml Udc) 30 ml PO Q4H PRN PRN Reason: GI Upset Stop: 04/18/21 14:08 Last Admin: 03/20/21 19:41 Dose: 30 ml Documented by: Bismuth Subsalicylate (Bismuth Subsalicylate Liqd 236 Ml) 15 ml PO PRN PRN PRN Reason: Loose Stool Stop: 04/18/21 14:08 Cyanocobalamin (Cyanocobalamin 500 Mcg Tablet (Vitamin B-12)) 1,000 mcg PO DAILY JACLYN Stop: 04/19/21 08:59 Last Admin: 03/28/21 09:04 Dose: 1,000 mcg Documented by: Famotidine (Famotidine 20 Mg Tab) 20 mg PO DAILY JACLYN Stop: 04/19/21 08:59 Last Admin: 03/28/21 09:04 Dose: 20 mg Documented by: Hydroxyzine HCl (Hydroxyzine Hcl 25 Mg Tab) 50 mg PO HSZ PRN PRN Reason: Insomnia Stop: 04/18/21 14:08 Last Admin: 03/27/21 20:50 Dose: 50 mg Documented by: Hydroxyzine HCl (Hydroxyzine Hcl 25 Mg Tab) 25 mg PO Q4H PRN PRN Reason: Anxiety Stop: 04/18/21 14:08 Last Admin: 03/26/21 17:29 Dose: 25 mg Documented by: Loratadine (Loratadine 10 Mg Tab) 10 mg PO DAILY JACLYN Stop: 04/19/21 08:59 Last Admin: 03/28/21 09:04 Dose: 10 mg Documented by: Magnesium Hydroxide (Magnesium Hydroxide Susp 30 Ml Udc) 30 ml PO DAILY PRN PRN Reason: Constipation Stop: 04/18/21 14:08 Propranolol HCl (Propranolol Hcl 10 Mg Tab) 10 mg PO BID JACLYN Stop: 04/22/21 17:49 Last Admin: 03/28/21 19:53 Dose: 10 mg Documented by: Sodium Chloride (Sodium Chloride 0.65% Na Soln 45 Ml (Tate)) 1 - 2 sprays NA PRN PRN PRN Reason: Nasal Dryness/Congestion Stop: 04/18/21 14:08 Tamsulosin HCl (Tamsulosin Hcl 0.4 Mg Cap) 0.4 mg PO TODAY@1930 [facility] Stop: 04/27/21 19:29 Last Admin: 03/28/21 19:53 Dose: 0.4 mg Documented by: Thiamine HCl (Thiamine Hcl 100 Mg Tab) 100 mg PO QAM [facility] Stop: 04/19/21 08:59 Last Admin: 03/28/21 09:04 Dose: 100 mg Documented by: Mental Health & Subst Abuse Tx Psychiatrist Name of Psychiatrist: Patricia Gautam Psychiatrist's Therapist Name of Therapist: Patricia Lara Therapist's Le[facility] Cutter Name of Lehr Cutter: [facility] Phone Number for Lehr Cutter: [phone] Post Discharge Appointments Primary Care Physician Name Of Family Doctor: CARITO Myers Primary Care Provider Appointment Comment: [address], [address], [place] Contact Information Discharge Discharge Address: [address] [place] [address]
[2021-03-29] MEDS: CYANOCOBALAMIN 500 MCG TABLET (VITAMIN B-12) PO SCH (08:21)
[2021-03-29] MEDS: FAMOTIDINE 20 MG TAB PO SCH (08:22)
[2021-03-29] MEDS: PROPRANOLOL HCL 10 MG TAB PO SCH ×2 (08:22→20:17)
[2021-03-29] MEDS: THIAMINE HCL 100 MG TAB PO SCH (08:23)
[2021-03-29] MEDS: LORATADINE 10 MG TAB PO SCH (08:23)
[2021-03-29] MEDS: TAMSULOSIN HCL 0.4 MG CAP PO SCH (20:17)
[2021-03-30] MEDS: CYANOCOBALAMIN 500 MCG TABLET (VITAMIN B-12) PO SCH (08:48)
[2021-03-30] MEDS: FAMOTIDINE 20 MG TAB PO SCH (08:49)
[2021-03-30] MEDS: LORATADINE 10 MG TAB PO SCH (08:49)
[2021-03-30] MEDS: PROPRANOLOL HCL 10 MG TAB PO SCH ×2 (08:49→19:57)
[2021-03-30] MEDS: THIAMINE HCL 100 MG TAB PO SCH (08:50)
[2021-03-30] MEDS: hydrOXYzine HCl 25 MG TAB PO PRN (09:33)
[2021-03-30] MEDS ORDERED: OLANZapine 10 MG/2.1 ML SDV IM PRN (09:34)
[2021-03-30] MEDS ORDERED: OLANZapine 10 MG/2.1 ML SDV IM ONE (09:36)
[2021-03-30] MEDS: LORazepam 1 MG TAB PO PRN (10:08)
--- NOTE | 2021-03-30 15:55 | Psychiatric Progress Note ---
Date of Service March 30, 2021 Impression / Recommendations Shruthi Galeano is a 56 yo male with a history of bipolar disorder, primarily depression who has been unable to function without the structure of work, unable to care for self at [facility], now failed placement with a relative resulting in multiple inpatient hospitalizations this year (fourth admission since October 2020). He was non adherent with medication and presented with a possible mixed episode of ronald. Records have also raised the question of possible ASD vs late-onset schizophrenia vs factitious disorder. Diagnostically he presents with very concrete thoughts, flat affect and has difficulty discussing his mood or recent challenges which can all be consistent with ASD but he denies history of difficulty with social communication nor restricted repetitive interests. Family collateral and records review does show history of social communication challenges and oddities. Additionally episode leading to hospital sounds consistent with possible ronald v brief psychotic episode. Additional differential includes side effect Invega, neurocognitive disorder (PICK's disease) though was assessed by neurology. MOCA completed, abnormal clock drawing 03/30/21: outburst likely agitated catatonia. (1) Bipolar 1 disorder, mixed: 03/30/21: Ativan prn and start BID standing to catatonia, particularly as additional antipsychotics seem to cause EPS. 03/29/21: personal care referral as a diversion option as otherwise considering [facility]. 03/28/21--shift hs meds earlier. Remains unable to care for self outside of the hospital. It does not seem in patient's best interest to continue Invega given overall appearance. 03/27/21--interim care reviewed, plan is to taper and discontinue Seroquel due to potential for additive EPS on Invega sustenna. 03/26/21-Will be speaking with his brother Mauri this afternoon. Goal of discontinuing seroquel to avoid dual antipsychotics. Since he also required IM olanzapine today, per his request, for possible worsening internal stimuli, will get EKG when he's able to tolerate this to ensure QTc is normal. Will avoid cogentin for now as he's been showing brighter affect and it comes with potential for additional cognitive blunting and increases the long-term risk of TD. 03/25/21-Discussed reducing seroquel from 100 mg to 50mg which Froylan consents to, in order to move toward antipsychotic monotherapy with Invega. Propranolol is helping with HTN and seems to be helping with akathisia. Could consider cogentin to see if this lessens EPS symptoms. MOCA score of 24/30, which is abnormal, with all points (except for 1 for no numbers on clock draw) lost on delayed recall. During discussion of his issues with memory he suggested that he gets distracted by internal thoughts and got distressed cut off our conversation at that point which raises suspicion for ongoing internal stimuli and/or thought blocking consistent with primary psychotic disorder which further supports use of Invega GARNICA. 03/24/21--Reviewed records from most recent hospitalization at [facility] from 03/06 through 03/13. Interestingly they were seeing a very similar clinical picture with agitation leading to hospitalization and then no further acute psychiatric symptoms of ronald nor psychosis. They raised consideration for factitious disorder given that Froylan has been known to make statements of SI to seek care and that he struggles to know how to make social connections in a typical way so this could be a way of him meeting these needs. Was unable to do MOCA due to time constraints so will attempt tomorrow. Propranolol 10mg BID added last night due to concern for worsening akathasia and HTN. Will aim to taper Seroquel to discontinuation with goal of Invega monotherapy but will discuss this further with Froylan and his brother. Given history of medication non-adherence after discharge agree with Invega GARNICA as good long-term option. 03/23/21--Considerable time spent over the last three days reviewing and gathering collateral information from his outpatient provider and family. Awaiting records from most recent hospitalization where he apparently recieved GARNICA Invega. Therefore will not add any additional medications until this is clarified. He is spending more time on the unit but is not socializing and is often observed sitting or walking with staring at the wall with no purposeful activity. Will plan to do MOCA tomorrow. Will check in with Mauri again on Monday afternoon. 03/22/21--Continues to present as very concrete and with flat affect and poor eye contact. Gathering collateral with message left with his outpatient psychiatric and plan to contact his brother today. Likely will proceed with starting latuda with dinner for bipolar depression vs mixed episode after further collateral. Also starting daily schedule to encourage behavioral activation and less isolation to his room and to better assess his level of disorganization. 03/21/21: Lipid panel WNL and reassuring in setting of Seroquel use. Diagnostic picture remains unclear, awaiting a few specific titers from recent CSF but otherwise medical workup has been unremarkable. Will attempt further collateral from patient's brother and outpatient psychiatrist tomorrow. Will continue with seroquel 100 mg qhs. 03/20/21: Increase seroquel to 100mg qhs which patient consented to. Provided with screening questionnaires for OCD (Y-BOCS), BPD (mood disorder questionnaire), depression (PHQ-9) and anxiety (JAREK-7). He twice threw away most questionnaires but did fill out the Y-BOCS which noted some obsessions but few compulsions. 03/19/21: The patient was admitted to the [facility] ([facility]) on q15 min checks (behavioral with suicide precautions) for safety. The patient will participate in group, recreational, and milieu therapies and will be offered additional individual and family sessions as clinically appropriate. Continue Seroquel this hs. Consider Latuda trial. Will need to discuss options for longer term hospitalization with family and treatment team. MNPR due to recent aggression. Inventory Assets Strengths: intelligent, has outpatient providers and family involvement Needs: supportive housing, extended hospitalization Risk Factors Assessment Male: Yes : Yes Do You Have Access To A Gun?: No Mental Health Diagnoses: Yes Substance Use Disorders: No Previous Attempt: Yes Previous Psychiatric Hospitalization: Yes Protective Factors Assessment Supportive Family: Yes Interval History Identifying Information 56 yo man with history of renal cancer, sleep disorders, depression, and possible BPAD who was admitted following an episode of [id number] aggression toward a family member and difficulty attending to his basic needs. Multiple psychiatric hospitalizations over the course of last 6 months, failed placement with all available family options with escalation in agitated behavior prior to this admission necessitating medical admission for intubation. Chief Complaint "help me". Review of Systems Sleep Information Total Hours of Sleep: 6.5 Sleep Comments: pt on q-15 minute checks Meal Information Percent Meal Consumed - Breakfast: 100 Percent Meal Consumed - Lunch: 100 Percent Meal Consumed - Dinner: 100 Subjective Subjective Patient was seen & assessed and interval progress reviewed with nursing and social work. This am acutely called to see patient as he was wandering then having an attack, laying on floor in unlocked seclusion, required prn Zyprexa IM (his preference), soon after accepted Ativan po. He appeared to be thought blocked and could only verbalize needing help. He did end up napping for a bit and later was interacting with peers for first time in days in the rec room. Physical Exam Psychiatric Orientation: alert Apperance: appropriately dressed and appropriately groomed Eye Contact: + poor eye contact Motor Behavior: no abnormal motor movements Speech: + abnormal rate/rhythm/volume of speech Affect: + flat affect and + labile affect Mood: + anxious mood Thought Process: + thought blocking Thought Content: + paranoid Suicidal Thoughts: denies suicidal thoughts Homicidal Thoughts: denies homicidal thoughts Hallucinations: no auditory hallucinations and no visual hallucinations Cognition: + attention not intact Insight: + poor insight Judgement: + poor judgement Vital Signs (Past 24 Hours) Last Vital Signs Temp 36.6 C 03/30/21 06:44 Pulse 55 L 03/30/21 06:44 Resp 18 03/30/21 06:44 BP 127/77 03/30/21 06:44 Pulse Ox 95 03/20/21 21:15 Results & Data ([facility]) Current Inpatient Medications Current Inpatient Medications: Current Inpatient Medications Acetaminophen (Acetaminophen 325 Mg Tab) 650 mg PO Q4H PRN PRN Reason: Headache or Minor Fever Stop: 04/18/21 14:08 Al Hydrox/Mg Hydrox/Simethicone (Aluminum/Magnesium Susp 30 Ml Udc) 30 ml PO Q4H PRN PRN Reason: GI Upset Stop: 04/18/21 14:08 Last Admin: 03/20/21 19:41 Dose: 30 ml Documented by: Bismuth Subsalicylate (Bismuth Subsalicylate Liqd 236 Ml) 15 ml PO PRN PRN PRN Reason: Loose Stool Stop: 04/18/21 14:08 Cyanocobalamin (Cyanocobalamin 500 Mcg Tablet (Vitamin B-12)) 1,000 mcg PO DAILY JACLYN Stop: 04/19/21 08:59 Last Admin: 03/30/21 08:48 Dose: 1,000 mcg Documented by: Famotidine (Famotidine 20 Mg Tab) 20 mg PO DAILY JACLYN Stop: 04/19/21 08:59 Last Admin: 03/30/21 08:49 Dose: 20 mg Documented by: Hydroxyzine HCl (Hydroxyzine Hcl 25 Mg Tab) 50 mg PO HSZ PRN PRN Reason: Insomnia Stop: 04/18/21 14:08 Last Admin: 03/27/21 20:50 Dose: 50 mg Documented by: Hydroxyzine HCl (Hydroxyzine Hcl 25 Mg Tab) 25 mg PO Q4H PRN PRN Reason: Anxiety Stop: 04/18/21 14:08 Last Admin: 03/30/21 09:33 Dose: 25 mg Documented by: Loratadine (Loratadine 10 Mg Tab) 10 mg PO DAILY JACLYN Stop: 04/19/21 08:59 Last Admin: 03/30/21 08:49 Dose: 10 mg Documented by: Lorazepam (Lorazepam 1 Mg Tab) 1 mg PO Q4H PRN PRN Reason: Anxiety/Agitation Stop: 04/29/21 09:35 Last Admin: 03/30/21 10:08 Dose: 1 mg Documented by: Magnesium Hydroxide (Magnesium Hydroxide Susp 30 Ml Udc) 30 ml PO DAILY PRN PRN Reason: Constipation Stop: 04/18/21 14:08 Olanzapine (Olanzapine 10 Mg/2.1 Ml Sdv) 5 mg IM Q6H PRN PRN Reason: Agitation Stop: 04/29/21 09:33 Last Admin: 03/30/21 09:40 Dose: 5 mg Documented by: Propranolol HCl (Propranolol Hcl 10 Mg Tab) 10 mg PO BID JACLYN Stop: 04/22/21 17:49 Last Admin: 03/30/21 08:49 Dose: 10 mg Documented by: Sodium Chloride (Sodium Chloride 0.65% Na Soln 45 Ml ([place])) 1 - 2 sprays NA PRN PRN PRN Reason: Nasal Dryness/Congestion Stop: 04/18/21 14:08 Tamsulosin HCl (Tamsulosin Hcl 0.4 Mg Cap) 0.4 mg PO TODAY@1930 JACLYN Stop: 04/27/21 19:29 Last Admin: 03/29/21 20:17 Dose: 0.4 mg Documented by: Thiamine HCl (Thiamine Hcl 100 Mg Tab) 100 mg PO QAM JACLYN Stop: 04/19/21 08:59 Last Admin: 03/30/21 08:50 Dose: 100 mg Documented by: Mental Health & Subst Abuse Tx Psychiatrist Name of Psychiatrist: Patricia Gautam Psychiatrist's Therapist Name of Therapist: Patricia Lara Therapist's Twisting Frame Changer Name of Twisting Frame Changer: [facility] [place] Phone Number for Twisting Frame Changer: [phone] Post Discharge Appointments Primary Care Physician Name Of Family Doctor: CARITO Myers Primary Care Provider Appointment Comment: [address] [facility], [address] [place] [address] Contact Information Discharge Discharge Address: [address] [place] [id number]
[2021-03-30] MEDS: LORazepam 1 MG TAB PO SCH (16:56)
[2021-03-30] MEDS: TAMSULOSIN HCL 0.4 MG CAP PO SCH (19:47)
[2021-03-31] MEDS: LORATADINE 10 MG TAB PO SCH (08:51)
[2021-03-31] MEDS: LORazepam 1 MG TAB PO SCH ×2 (08:51→17:11)
[2021-03-31] MEDS: PROPRANOLOL HCL 10 MG TAB PO SCH ×2 (08:51→20:02)
[2021-03-31] MEDS: CYANOCOBALAMIN 500 MCG TABLET (VITAMIN B-12) PO SCH (08:51)
[2021-03-31] MEDS: THIAMINE HCL 100 MG TAB PO SCH (08:51)
[2021-03-31] MEDS: FAMOTIDINE 20 MG TAB PO SCH (08:51)
--- NOTE | 2021-03-31 09:37 | Psychiatric Progress Note ---
Date of Service March 31, 2021 Impression / Recommendations Shruthi Galeano is a 56 yo male with a history of bipolar disorder, primarily depression who has been unable to function without the structure of work, unable to care for self at [facility], now failed placement with a relative resulting in multiple inpatient hospitalizations this year (fourth admission since October 2020). He was non adherent with medication and presented with a possible mixed episode of ronald. Records have also raised the question of possible ASD vs late-onset schizophrenia vs factitious disorder. Diagnostically he presents with very concrete thoughts, flat affect and has difficulty discussing his mood or recent challenges which can all be consistent with ASD but he denies history of difficulty with social communication nor restricted repetitive interests. Family collateral and records review does show history of social communication challenges and oddities. Additionally episode leading to hospital sounds consistent with possible ronald v brief psychotic episode. Additional differential includes side effect Invega, neurocognitive disorder (PICK's disease) though was assessed by neurology. MOCA completed, abnormal clock drawing 03/31/21: improved, response to Ativan consistent with agitated catatonia. (1) Bipolar 1 disorder, mixed: 03/31/21: brother Dr. Sales updated on patient's condition and retrial of Ativan. Reviewed that still deciding on Invega as best GARNICA option before next shot. 03/30/21: Ativan prn and start BID standing to catatonia, particularly as additional antipsychotics seem to cause EPS. 03/29/21: personal care referral as a diversion option as otherwise considering [facility]. 03/28/21--shift hs meds earlier. Remains unable to care for self outside of the hospital. It does not seem in patient's best interest to continue Invega given overall appearance. 03/27/21--interim care reviewed, plan is to taper and discontinue Seroquel due to potential for additive EPS on Invega sustenna. 03/26/21-Will be speaking with his brother Mauri this afternoon. Goal of discontinuing seroquel to avoid dual antipsychotics. Since he also required IM olanzapine today, per his request, for possible worsening internal stimuli, will get EKG when he's able to tolerate this to ensure QTc is normal. Will avoid cogentin for now as he's been showing brighter affect and it comes with potential for additional cognitive blunting and increases the long-term risk of TD. 03/25/21-Discussed reducing seroquel from 100 mg to 50mg which Froylan consents to, in order to move toward antipsychotic monotherapy with Invega. Propranolol is helping with HTN and seems to be helping with akathisia. Could consider cogentin to see if this lessens EPS symptoms. MOCA score of 24/30, which is abnormal, with all points (except for 1 for no numbers on clock draw) lost on delayed recall. During discussion of his issues with memory he suggested that he gets distracted by internal thoughts and got distressed cut off our conversation at that point which raises suspicion for ongoing internal stimuli and/or thought blocking consistent with primary psychotic disorder which further supports use of Invega GARNICA. 03/24/21--Reviewed records from most recent hospitalization at [facility] from 03/06 through 03/13. Interestingly they were seeing a very similar clinical picture with agitation leading to hospitalization and then no further acute psychiatric symptoms of ronald nor psychosis. They raised consideration for factitious disorder given that Froylan has been known to make statements of SI to seek care and that he struggles to know how to make social connections in a typical way so this could be a way of him meeting these needs. Was unable to do MOCA due to time constraints so will attempt tomorrow. Propranolol 10mg BID added last night due to concern for worsening akathasia and HTN. Will aim to taper Seroquel to discontinuation with goal of Invega monotherapy but will discuss this further with Froylan and his brother. Given history of medication non-adherence after discharge agree with Invega GARNICA as good long-term option. 03/23/21--Considerable time spent over the last three days reviewing and gathering collateral information from his outpatient provider and family. Awaiting records from most recent hospitalization where he apparently recieved GARNICA Invega. Therefore will not add any additional medications until this is clarified. He is spending more time on the unit but is not socializing and is often observed sitting or walking with staring at the wall with no purposeful activity. Will plan to do MOCA tomorrow. Will check in with Mauri again on Monday afternoon. 03/22/21--Continues to present as very concrete and with flat affect and poor eye contact. Gathering collateral with message left with his outpatient psychia tric and plan to contact his brother today. Likely will proceed with starting latuda with dinner for bipolar depression vs mixed episode after further collateral. Also starting daily schedule to encourage behavioral activation and less isolation to his room and to better assess his level of disorganization. 03/21/21: Lipid panel WNL and reassuring in setting of Seroquel use. Diagnostic picture remains unclear, awaiting a few specific titers from recent CSF but otherwise medical workup has been unremarkable. Will attempt further collateral from patient's brother and outpatient psychiatrist tomorrow. Will continue with seroquel 100 mg qhs. 03/20/21: Increase seroquel to 100mg qhs which patient consented to. Provided with screening questionnaires for OCD (Y-BOCS), BPD (mood disorder ques tionnaire), depression (PHQ-9) and anxiety (JAREK-7). He twice threw away most questionnaires but did fill out the Y-BOCS which noted some obsessions but few compulsions. 03/19/21: The patient was admitted to the [facility] ([facility] unit) on q15 min checks (behavioral with suicide precautions) for safety. The patient will participate in group, recreational, and milieu therapies and will be offered additional individual and family sessions as clinically appropriate. Continue Seroquel this hs. Consider Latuda trial. Will need to discuss options for longer term hospitalization with family and treatment team. MNPR due to recent aggression. Inventory Assets Strengths: intelligent, has outpatient providers and family involvement Needs: supportive housing, extended hospitalization Risk Factors Assessment Male: Yes : Yes Do You Have Access To A Gun?: No Mental Health Diagnoses: Yes Substance Use Disorders: No Previous Attempt: Yes Previous Psychiatric Hospitalization: Yes Protective Factors Assessment Supportive Family: Yes Interval History Identifying Information 56 yo man with history of renal cancer, sleep disorders, depression, and possible BPAD who was admitted following an episode of [id number] aggression toward a family member and difficulty attending to his basic needs. Multiple psychiatric hospitalizations over the course of last 6 months, failed placement with all available family options with escalation in agitated behavior prior to this admission necessitating medical admission for intubation. Chief Complaint "yeah I'm going to groups now". Review of Systems Sleep Information Total Hours of Sleep: 6 Sleep Comments: pt on q-15 minute checks Meal Information Percent Meal Consumed - Breakfast: 100 Percent Meal Consumed - Lunch: 100 Percent Meal Consumed - Dinner: 100 Subjective Subjective Patient was seen & assessed and interval progress reviewed with treatment team. Patient reports feeling calmer today, participated in groups. Tolerating BID ATivan dosing. Physical Exam Psychiatric Orientation: alert and oriented x 3 Apperance: appropriately dressed and appropriately groomed Eye Contact: good eye contact Motor Behavior: no abnormal motor movements Speech: normal rate/rhythm/volume of speech Affect: + depressed affect Mood: no depressed mood Thought Process: + thought process not goal directed Thought Content: reality based without delusions Suicidal Thoughts: denies suicidal thoughts Homicidal Thoughts: denies homicidal thoughts Hallucinations: no auditory hallucinations and no visual hallucinations Cognition: attention grossly intact and language grossly intact Estimated Intelligence: consistent with education level Vital Signs (Past 24 Hours) Last Vital Signs Temp 36.7 C 03/31/21 06:38 Pulse 73 03/31/21 06:39 Resp 18 03/31/21 06:38 BP 132/82 03/31/21 06:39 Pulse Ox 95 03/20/21 21:15 Results & Data ([facility]) Current Inpatient Medications Current Inpatient Medications: Current Inpatient Medications Acetaminophen (Acetaminophen 325 Mg Tab) 650 mg PO Q4H PRN PRN Reason: Headache or Minor Fever Stop: 04/18/21 14:08 Al Hydrox/Mg Hydrox/Simethicone (Aluminum/Magnesium Susp 30 Ml Udc) 30 ml PO Q4H PRN PRN Reason: GI Upset Stop: 04/18/21 14:08 Last Admin: 03/20/21 19:41 Dose: 30 ml Documented by: Bismuth Subsalicylate (Bismuth Subsalicylate Liqd 236 Ml) 15 ml PO PRN PRN PRN Reason: Loose Stool Stop: 04/18/21 14:08 Cyanocobalamin (Cyanocobalamin 500 Mcg Tablet (Vitamin B-12)) 1,000 mcg PO DAILY JACLYN Stop: 04/19/21 08:59 Last Admin: 03/31/21 08:51 Dose: 1,000 mcg Documented by: Famotidine (Famotidine 20 Mg Tab) 20 mg PO DAILY JACLYN Stop: 04/19/21 08:59 Last Admin: 03/31/21 08:51 Dose: 20 mg Documented by: Hydroxyzine HCl (Hydroxyzine Hcl 25 Mg Tab) 50 mg PO HSZ PRN PRN Reason: Insomnia Stop: 04/18/21 14:08 Last Admin: 03/27/21 20:50 Dose: 50 mg Documented by: Hydroxyzine HCl (Hydroxyzine Hcl 25 Mg Tab) 25 mg PO Q4H PRN PRN Reason: Anxiety Stop: 04/18/21 14:08 Last Admin: 03/30/21 09:33 Dose: 25 mg Documented by: Loratadine (Loratadine 10 Mg Tab) 10 mg PO DAILY JACLYN Stop: 04/19/21 08:59 Last Admin: 03/31/21 08:51 Dose: 10 mg Documented by: Lorazepam (Lorazepam 1 Mg Tab) 1 mg PO Q4H PRN PRN Reason: Anxiety/Agitation Stop: 04/29/21 09:35 Last Admin: 03/30/21 10:08 Dose: 1 mg Documented by: Lorazepam (Lorazepam 1 Mg Tab) 1 mg PO BIDM [facility] Stop: 04/29/21 17:44 Last Admin: 03/31/21 08:51 Dose: 1 mg Documented by: Magnesium Hydroxide (Magnesium Hydroxide Susp 30 Ml Udc) 30 ml PO DAILY PRN PRN Reason: Constipation Stop: 04/18/21 14:08 Olanzapine (Olanzapine 10 Mg/2.1 Ml Sdv) 5 mg IM Q6H PRN PRN Reason: Agitation Stop: 04/29/21 09:33 Last Admin: 03/30/21 09:40 Dose: 5 mg Documented by: Propranolol HCl (Propranolol Hcl 10 Mg Tab) 10 mg PO BID [facility] Stop: 04/22/21 17:49 Last Admin: 03/31/21 08:51 Dose: 10 mg Documented by: Sodium Chloride (Sodium Chloride 0.65% Na Soln 45 Ml ([place])) 1 - 2 sprays NA PRN PRN PRN Reason: Nasal Dryness/Congestion Stop: 04/18/21 14:08 Tamsulosin HCl (Tamsulosin Hcl 0.4 Mg Cap) 0.4 mg PO TODAY@1930 [facility] Stop: 04/27/21 19:29 Last Admin: 03/30/21 19:47 Dose: 0.4 mg Documented by: Thiamine HCl (Thiamine Hcl 100 Mg Tab) 100 mg PO QAM JACLYN Stop: 04/19/21 08:59 Last Admin: 03/31/21 08:51 Dose: 100 mg Documented by: Mental Health & Subst Abuse Tx Psychiatrist Name of Psychiatrist: Patricia Gautam Psychiatrist's Therapist Name of Therapist: Patricia Lara Therapist's Solar [employer]ovoltaic Crew Lead Name of Solar [employer]olta[employer] Crew Lead: [facility] [place] Phone Number for Solar Photovoltaic Crew Lead: [phone] Post Discharge Appointments Primary Care Physician Name Of Family Doctor: CARITO Myers Primary Care Provider Appointment Comment: [address] [facility], [address], [place] Contact Information Discharge Discharge Address: [address] [place] [id number]
[2021-03-31] MEDS: TAMSULOSIN HCL 0.4 MG CAP PO SCH (20:02)
[2021-04-01] MEDS: CYANOCOBALAMIN 500 MCG TABLET (VITAMIN B-12) PO SCH (07:54)
[2021-04-01] MEDS: LORATADINE 10 MG TAB PO SCH (07:55)
[2021-04-01] MEDS: FAMOTIDINE 20 MG TAB PO SCH (07:55)
[2021-04-01] MEDS: LORazepam 1 MG TAB PO SCH ×2 (07:55→16:54)
[2021-04-01] MEDS: THIAMINE HCL 100 MG TAB PO SCH (07:56)
[2021-04-01] MEDS: PROPRANOLOL HCL 10 MG TAB PO SCH ×2 (07:56→21:28)
--- NOTE | 2021-04-01 12:07 | Psychiatric Progress Note ---
Date of Service April 01, 2021 Impression / Recommendations Shruthi Galeano is a 56 yo male with a history of bipolar disorder, primarily depression who has been unable to function without the structure of work, unable to care for self at [place], now failed placement with a relative resulting in multiple inpatient hospitalizations this year (fourth admission since October 2020). He was non adherent with medication and presented with a possible mixed episode of ronald. Records have also raised the question of possible ASD vs late-onset schizophrenia vs factitious disorder. Diagnostically he presents with very concrete thoughts, flat affect and has difficulty discussing his mood or recent challenges which can all be consistent with ASD but he denies history of difficulty with social communication nor restricted repetitive interests. Family collateral and records review does show history of social communication challenges and oddities. Additionally episode leading to hospital sounds consistent with possible ronald v brief psychotic episode. Additional differential includes side effect Invega, neurocognitive disorder (PICK's disease) though was assessed by neurology. MOCA completed, abnormal clock drawing 04/01/21: improved on Ativan Plan: continue current meds and treatment plan, unable to care for self outside of the hospital, referrals to personal shelter made. (1) Bipolar 1 disorder, mixed: Inventory Assets Strengths: intelligent, has outpatient providers and family involvement Needs: supportive housing, extended hospitalization Risk Factors Assessment Male: Yes : Yes Do You Have Access To A Gun?: No Mental Health Diagnoses: Yes Substance Use Disorders: No Previous Attempt: Yes Previous Psychiatric Hospitalization: Yes Protective Factors Assessment Supportive Family: Yes Interval History Identifying Information 56 yo man with history of renal cancer, sleep disorders, depression, and possible BPAD who was admitted following an episode of [id number] aggression toward a family member and difficulty attending to his basic needs. Multiple psychiatric hospitalizations over the course of last 6 months, failed placement with all available family options with escalation in agitated behavior prior to this admission necessitating medical admission for intubation. Chief Complaint "I've been going to groups". Review of Systems Sleep Information Total Hours of Sleep: 5.5 Sleep Comments: pt on q-15 minute checks Meal Information Percent Meal Consumed - Breakfast: 100 Percent Meal Consumed - Lunch: 100 Percent Meal Consumed - Dinner: 100 Subjective Subjective Patient was seen & assessed and interval progress reviewed with nursing and social work. Since resuming Ativan has been consistently out of room more, less restless, interacting with peers for video games and puzzles. Physical Exam Psychiatric Orientation: alert and oriented x 3 Apperance: appropriately dressed and appropriately groomed Eye Contact: good eye contact Motor Behavior: no abnormal motor movements Speech: + abnormal rate/rhythm/volume of speech (non spontaneous) Affect: + blunted affect Mood: + depressed mood Thought Process: + concrete thought process Thought Content: reality based without delusions Suicidal Thoughts: denies suicidal thoughts Homicidal Thoughts: denies homicidal thoughts Hallucinations: no auditory hallucinations and no visual hallucinations Cognition: language grossly intact; + attention not intact Estimated Intelligence: consistent with education level Insight: + limited insight Judgement: + limited judgement Vital Signs (Past 24 Hours) Last Vital Signs Temp 36.6 C 04/01/21 06:37 Pulse 66 04/01/21 06:37 Resp 16 04/01/21 06:37 BP 129/82 04/01/21 06:37 Pulse Ox 95 03/20/21 21:15 Results & Data ([facility]) Current Inpatient Medications Current Inpatient Medications: Current Inpatient Medications Acetaminophen (Acetaminophen 325 Mg Tab) 650 mg PO Q4H PRN PRN Reason: Headache or Minor Fever Stop: 04/18/21 14:08 Al Hydrox/Mg Hydrox/Simethicone (Aluminum/Magnesium Susp 30 Ml Udc) 30 ml PO Q4H PRN PRN Reason: GI Upset Stop: 04/18/21 14:08 Last Admin: 03/20/21 19:41 Dose: 30 ml Documented by: Bismuth Subsalicylate (Bismuth Subsalicylate Liqd 236 Ml) 15 ml PO PRN PRN PRN Reason: Loose Stool Stop: 04/18/21 14:08 Cyanocobalamin (Cyanocobalamin 500 Mcg Tablet (Vitamin B-12)) 1,000 mcg PO DAILY JACLYN Stop: 04/19/21 08:59 Last Admin: 04/01/21 07:54 Dose: 1,000 mcg Documented by: Famotidine (Famotidine 20 Mg Tab) 20 mg PO DAILY JACLYN Stop: 04/19/21 08:59 Last Admin: 04/01/21 07:55 Dose: 20 mg Documented by: Hydroxyzine HCl (Hydroxyzine Hcl 25 Mg Tab) 50 mg PO HSZ PRN PRN Reason: Insomnia Stop: 04/18/21 14:08 Last Admin: 03/27/21 20:50 Dose: 50 mg Documented by: Hydroxyzine HCl (Hydroxyzine Hcl 25 Mg Tab) 25 mg PO Q4H PRN PRN Reason: Anxiety Stop: 04/18/21 14:08 Last Admin: 03/30/21 09:33 Dose: 25 mg Documented by: Loratadine (Loratadine 10 Mg Tab) 10 mg PO DAILY JACLYN Stop: 04/19/21 08:59 Last Admin: 04/01/21 07:55 Dose: 10 mg Documented by: Lorazepam (Lorazepam 1 Mg Tab) 1 mg PO Q4H PRN PRN Reason: Anxiety/Agitation Stop: 04/29/21 09:35 Last Admin: 03/30/21 10:08 Dose: 1 mg Documented by: Lorazepam (Lorazepam 1 Mg Tab) 1 mg PO BIDM [facility] Stop: 04/29/21 17:44 Last Admin: 04/01/21 07:55 Dose: 1 mg Documented by: Magnesium Hydroxide (Magnesium Hydroxide Susp 30 Ml Udc) 30 ml PO DAILY PRN PRN Reason: Constipation Stop: 04/18/21 14:08 Olanzapine (Olanzapine 10 Mg/2.1 Ml Sdv) 5 mg IM Q6H PRN PRN Reason: Agitation Stop: 04/29/21 09:33 Last Admin: 03/30/21 09:40 Dose: 5 mg Documented by: Propranolol HCl (Propranolol Hcl 10 Mg Tab) 10 mg PO BID [facility] Stop: 04/22/21 17:49 Last Admin: 04/01/21 07:56 Dose: 10 mg Documented by: Sodium Chloride (Sodium Chloride 0.65% Na Soln 45 Ml ([place])) 1 - 2 sprays NA PRN PRN PRN Reason: Nasal Dryness/Congestion Stop: 04/18/21 14:08 Tamsulosin HCl (Tamsulosin Hcl 0.4 Mg Cap) 0.4 mg PO TODAY@1930 [facility] Stop: 04/27/21 19:29 Last Admin: 03/31/21 20:02 Dose: 0.4 mg Documented by: Thiamine HCl (Thiamine Hcl 100 Mg Tab) 100 mg PO QAM JACLYN Stop: 04/19/21 08:59 Last Admin: 04/01/21 07:56 Dose: 100 mg Documented by: Mental Health & Subst Abuse Tx Psychiatrist Name of Psychiatrist: Patricia Gautam Psychiatrist's Therapist Name of Therapist: Patricia Lara Therapist's Material Manager Name of Material Manager: [facility] Phone Number for Material Manager: [phone] Post Discharge Appointments Primary Care Physician Name Of Family Doctor: CARITO Myers Primary Care Provider Appointment Comment: [address] [facility], [address], [place] Contact Information Discharge Discharge Address: [address] [place] [id number]
[2021-04-01] MEDS: TAMSULOSIN HCL 0.4 MG CAP PO SCH (20:10)
[2021-04-02] MEDS: CYANOCOBALAMIN 500 MCG TABLET (VITAMIN B-12) PO SCH (08:20)
[2021-04-02] MEDS: FAMOTIDINE 20 MG TAB PO SCH (08:21)
[2021-04-02] MEDS: LORATADINE 10 MG TAB PO SCH (08:22)
[2021-04-02] MEDS: LORazepam 1 MG TAB PO SCH ×2 (08:22→16:56)
[2021-04-02] MEDS: PROPRANOLOL HCL 10 MG TAB PO SCH ×2 (08:23→20:07)
[2021-04-02] MEDS: THIAMINE HCL 100 MG TAB PO SCH (08:24)
--- NOTE | 2021-04-02 11:26 | Psychiatric Progress Note ---
Date of Service April 02, 2021 Impression / Recommendations Shruthi Galeano is a 56 yo male with a history of bipolar disorder, primarily depression who has been unable to function without the structure of work, unable to care for self at [facility], now failed placement with a relative resulting in multiple inpatient hospitalizations this year (fourth admission since October 2020). He was non adherent with medication and presented with a possible mixed episode of ronald. Records have also raised the question of possible ASD vs late-onset schizophrenia vs factitious disorder. Diagnostically he presents with very concrete thoughts, flat affect and has difficulty discussing his mood or recent challenges which can all be consistent with ASD but he denies history of difficulty with social communication nor restricted repetitive interests. Family collateral and records review does show history of social communication challenges and oddities. Additionally episode leading to hospital sounds consistent with possible ronald v brief psychotic episode. Additional differential includes side effect Invega, neurocognitive disorder (PICK's disease) though was assessed by neurology. MOCA completed, abnormal clock drawing 04/02/21: anxiety level varies, no acting out but still unable to care for self outside of the hospital. (1) Bipolar 1 disorder, mixed: 04/02/21: Personal correction necessary as step down given repeated hospitalizations. Monitor for sedation on Ativan. 03/31/21: brother Dr. Sales updated on patient's condition and retrial of Ativan. Reviewed that still deciding on Invega as best GARNICA option before next shot. 03/30/21: Ativan prn and start BID standing to catatonia, particularly as additional antipsychotics seem to cause EPS. 03/29/21: personal care referral as a diversion option as otherwise considering [facility] hospital. 03/28/21--shift hs meds earlier. Remains unable to care for self outside of the hospital. It does not seem in patient's best interest to continue Invega given overall appearance. 03/27/21--interim care reviewed, plan is to taper and discontinue Seroquel due to potential for additive EPS on Invega sustenna. 03/26/21-Will be speaking with his brother Mauri this afternoon. Goal of dis continuing seroquel to avoid dual antipsychotics. Since he also required IM olanzapine today, per his request, for possible worsening internal stimuli, will get EKG when he's able to tolerate this to ensure QTc is normal. Will avoid cogentin for now as he's been showing brighter affect and it comes with potential for additional cognitive blunting and increases the long-term risk of TD. 03/25/21-Discussed reducing seroquel from 100 mg to 50mg which Froylan consents to, in order to move toward antipsychotic monotherapy with Invega. Propranolol is helping with HTN and seems to be helping with akathisia. Could consider cogentin to see if this lessens EPS symptoms. MOCA score of 24/30, which is abnormal, with all points (except for 1 for no numbers on clock draw) lost on delayed recall. During discussion of his issues with memory he suggested that he gets distracted by internal thoughts and got distressed cut off our conversation at that point which raises suspicion for ongoing internal stimuli and/or thought blocking consistent with primary psychotic disorder which further supports use of Invega GARNICA. 03/24/21--Reviewed records from most recent hospitalization at [facility] from 03/06 through 03/13. Interestingly they were seeing a very similar clinical picture with agitation leading to hospitalization and then no further acute psychiatric symptoms of ronald nor psychosis. They raised consideration for factitious disorder given that Froylan has been known to make statements of SI to seek care and that he struggles to know how to make social connections in a typical way so this could be a way of him meeting these needs. Was unable to do MOCA due to time constraints so will attempt tomorrow. Propranolol 10mg BID added last night due to concern for worsening akathasia and HTN. Will aim to taper Seroquel to discontinuation with goal of Invega monotherapy but will discuss this further with Froylan and his brother. Given history of medication non-adherence after discharge agree with Invega GARNICA as good long-term option. 03/23/21--Considerable time spent over the last three days reviewing and gathering collateral information from his outpatient provider and family. Awaiting records from most recent hospitalization where he apparently recieved GARNICA Invega. Therefore will not add any additional medications until this is clarified. He is spending more time on the unit but is not socializing and is often observed sitting or walking with staring at the wall with no purposeful activity. Will plan to do MOCA tomorrow. Will check in with Mauri again on Monday afternoon. 03/22/21--Continues to present as very concrete and with flat affect and poor eye contact. Gathering collateral with message left with his outpatient psychiatric and plan to contact his brother today. Likely will proceed with starting latuda with dinner for bipolar depression vs mixed episode after further collateral. Also starting daily schedule to encourage behavioral activation and less isolation to his room and to better assess his level of disorganization. 03/21/21: Lipid panel WNL and reassuring in setting of Seroquel use. Diagnostic picture remains unclear, awaiting a few specific titers from recent CSF but otherwise medical workup has been unremarkable. Will attempt further collateral from patient's brother and outpatient psychiatrist tomorrow. Will continue with seroquel 100 mg qhs. 03/20/21: Increase seroquel to 100mg qhs which patient consented to. Provided with screening questionnaires for OCD (Y-BOCS), BPD (mood disorder questionnaire), depression (PHQ-9) and anxiety (JAREK-7). He twice threw away most questionnaires but did fill out the Y-BOCS which noted some obsessions but few compulsions. 03/19/21: The patient was admitted to the [facility] ([facility]) on q15 min checks (behavioral with suicide precautions) for safety. The patient will participate in group, recreational, and milieu therapies and will be offered additional individual and family sessions as clinically appropriate. Continue Seroquel this hs. Consider Latuda trial. Will need to discuss options for longer term hospitalization with family and treatment team. MNPR due to recent aggression. Inventory Assets Strengths: intelligent, has outpatient providers and family involvement Needs: supportive housing, extended hospitalization Risk Factors Assessment Male: Yes : Yes Do You Have Access To A Gun?: No Mental Health Diagnoses: Yes Substance Use Disorders: No Previous Attempt: Yes Previous Psychiatric Hospitalization: Yes Protective Factors Assessment Supportive Family: Yes Interval History Identifying Information 56 yo man with history of renal cancer, sleep disorders, depression, and possible BPAD who was admitted following an episode of llo-[id number] aggression toward a family member and difficulty attending to his basic needs. Multiple psychiatric hospitalizations over the course of last 6 months, failed placement with all available family options with escalation in agitated behavior prior to this admission necessitating medical admission for intubation. Chief Complaint "I'm feeling some better, my anxiety is 4/10" Review of Systems Sleep Information Total Hours of Sleep: 8.5 Sleep Comments: pt on q-15 minute checks Meal Information Percent Meal Consumed - Breakfast: 100 Percent Meal Consumed - Lunch: 100 Percent Meal Consumed - Dinner: 80 Subjective Subjective Patient was seen & assessed and interval progress reviewed with treatment team. More anxious last pm, didn't attend groups, but out and about this am. Propranolol was held by parameters. He is cooperative with Office of Aging assessment this am. Physical Exam Psychiatric Orientation: alert and oriented x 3 Apperance: appropriately dressed and appropriately groomed Eye Contact: good eye contact Motor Behavior: no abnormal motor movements Speech: normal rate/rhythm/volume of speech Affect: + depressed affect Mood: no depressed mood Thought Process: + concrete thought process Thought Content: reality based without delusions Suicidal Thoughts: denies suicidal thoughts Homicidal Thoughts: denies homicidal thoughts Hallucinations: no auditory hallucinations and no visual hallucinations Cognition: attention grossly intact and language grossly intact Estimated Intelligence: consistent with education level Insight: + limited insight Judgement: + limited judgement Vital Signs (Past 24 Hours) Last Vital Signs Temp 36.2 C L 04/02/21 06:41 Pulse 80 04/02/21 08:57 Resp 15 04/02/21 06:41 BP 113/80 04/02/21 08:57 Pulse Ox 95 03/20/21 21:15 Results & Data ([facility]) Current Inpatient Medications Current Inpatient Medications: Current Inpatient Medications Acetaminophen (Acetaminophen 325 Mg Tab) 650 mg PO Q4H PRN PRN Reason: Headache or Minor Fever Stop: 04/18/21 14:08 Al Hydrox/Mg Hydrox/Simethicone (Aluminum/Magnesium Susp 30 Ml Udc) 30 ml PO Q4H PRN PRN Reason: GI Upset Stop: 04/18/21 14:08 Last Admin: 03/20/21 19:41 Dose: 30 ml Documented by: Bismuth Subsalicylate (Bismuth Subsalicylate Liqd 236 Ml) 15 ml PO PRN PRN PRN Reason: Loose Stool Stop: 04/18/21 14:08 Cyanocobalamin (Cyanocobalamin 500 Mcg Tablet (Vitamin B-12)) 1,000 mcg PO DAILY JACLYN Stop: 04/19/21 08:59 Last Admin: 04/02/21 08:20 Dose: 1,000 mcg Documented by: Famotidine (Famotidine 20 Mg Tab) 20 mg PO DAILY JACLYN Stop: 04/19/21 08:59 Last Admin: 04/02/21 08:21 Dose: 20 mg Documented by: Hydroxyzine HCl (Hydroxyzine Hcl 25 Mg Tab) 50 mg PO HSZ PRN PRN Reason: Insomnia Stop: 04/18/21 14:08 Last Admin: 03/27/21 20:50 Dose: 50 mg Documented by: Hydroxyzine HCl (Hydroxyzine Hcl 25 Mg Tab) 25 mg PO Q4H PRN PRN Reason: Anxiety Stop: 04/18/21 14:08 Last Admin: 03/30/21 09:33 Dose: 25 mg Documented by: Loratadine (Loratadine 10 Mg Tab) 10 mg PO DAILY JACLYN Stop: 04/19/21 08:59 Last Admin: 04/02/21 08:22 Dose: 10 mg Documented by: Lorazepam (Lorazepam 1 Mg Tab) 1 mg PO Q4H PRN PRN Reason: Anxiety/Agitation Stop: 04/29/21 09:35 Last Admin: 03/30/21 10:08 Dose: 1 mg Documented by: Lorazepam (Lorazepam 1 Mg Tab) 1 mg PO BIDM [facility] Stop: 04/29/21 17:44 Last Admin: 04/02/21 08:22 Dose: 1 mg Documented by: Magnesium Hydroxide (Magnesium Hydroxide Susp 30 Ml Udc) 30 ml PO DAILY PRN PRN Reason: Constipation Stop: 04/18/21 14:08 Olanzapine (Olanzapine 10 Mg/2.1 Ml Sdv) 5 mg IM Q6H PRN PRN Reason: Agitation Stop: 04/29/21 09:33 Last Admin: 03/30/21 09:40 Dose: 5 mg Documented by: Propranolol HCl (Propranolol Hcl 10 Mg Tab) 10 mg PO BID [facility] Stop: 04/22/21 17:49 Last Admin: 04/02/21 08:23 Dose: 10 mg Documented by: Sodium Chloride (Sodium Chloride 0.65% Na Soln 45 Ml ([place])) 1 - 2 sprays NA PRN PRN PRN Reason: Nasal Dryness/Congestion Stop: 04/18/21 14:08 Tamsulosin HCl (Tamsulosin Hcl 0.4 Mg Cap) 0.4 mg PO TODAY@1930 [facility] Stop: 04/27/21 19:29 Last Admin: 04/01/21 20:10 Dose: 0.4 mg Documented by: Thiamine HCl (Thiamine Hcl 100 Mg Tab) 100 mg PO QAM JACLYN Stop: 04/19/21 08:59 Last Admin: 04/02/21 08:24 Dose: 100 mg Documented by: Mental Health & Subst Abuse Tx Psychiatrist Name of Psychiatrist: Patricia Gautam Psychiatrist's Therapist Name of Therapist: Patricia Lara Therapist's Chief Telephone Operator Name of Chief Telephone Operator: [facility] Phone Number for Chief Telephone Operator: [phone] Post Discharge Appointments Primary Care Physician Name Of Family Doctor: CARITO Myers Primary Care Provider Appointment Comment: [address] [facility] [address], [address], [place] Contact Information Discharge Discharge Address: [address] [place] [address]
[2021-04-02] MEDS: TAMSULOSIN HCL 0.4 MG CAP PO SCH (20:07)
[2021-04-03] MEDS: PROPRANOLOL HCL 10 MG TAB PO SCH ×2 (08:48→19:26)
[2021-04-03] MEDS: FAMOTIDINE 20 MG TAB PO SCH (08:48)
[2021-04-03] MEDS: THIAMINE HCL 100 MG TAB PO SCH (08:48)
[2021-04-03] MEDS: CYANOCOBALAMIN 500 MCG TABLET (VITAMIN B-12) PO SCH (08:48)
[2021-04-03] MEDS: LORATADINE 10 MG TAB PO SCH (08:48)
[2021-04-03] MEDS: LORazepam 1 MG TAB PO SCH ×2 (08:49→17:19)
--- NOTE | 2021-04-03 11:54 | Psychiatric Progress Note ---
Date of Service April 03, 2021 Impression / Recommendations Shruthi Galeano is a 56 yo male with a history of bipolar disorder, primarily depression who has been unable to function without the structure of work, [facility], now failed placement with a relative resulting in multiple inpatient hospitalizations this year (fourth admission since October 2020). He was non adherent with medication and presented with a possible mixed episode of ronald. Records have also raised the question of possible ASD vs late-onset schizophrenia vs factitious disorder. Diagnostically he presents with very concrete thoughts, flat affect and has difficulty discussing his mood or recent challenges which can all be consistent with ASD but he denies history of difficulty with social communication nor restricted repetitive interests. Family collateral and records review does show history of social communication challenges and oddities. Additionally episode leading to hospital sounds consistent with possible ronald v brief psychotic episode. Demonstrated multiple episodes of acute agitation after discontinuation of lorazepam which appeared consistent with agitated catatonia. Additional differential includes side effect Invega, neurocognitive disorder (PICK's disease) though was assessed by neurology. MOCA completed, abnormal clock drawing. He received Invega Sustenna 234 mg IM on 03/09/21 and then second dose of 156 mg on 03/13/21. He will be due for his next dose of 76 mg on 04/09/21. 04/03/21: anxiety level varies, remains very concrete with limited spontaneous speech and sparse thought content, no acting out but still unable to care for self outside of the hospital. (1) Bipolar 1 disorder, mixed: 04/03/21: Reviewed interim progress. Continue with current medications including: Invega GARNICA (next due: 04/09), ativan 1 mg BID and propranolol. Slight improvement in speech possibly due to lessening EPS from last GARNICA versus benefit from ativan. No signs of excessive sedation. 04/02/21: Personal skilled nursing necessary as step down given repeated hospitalizations. Monitor for sedation on Ativan. 03/31/21: brother Dr. Sales updated on patient's condition and retrial of Ativan. Reviewed that still deciding on Invega as best GARNICA option before next shot. 03/30/21: Ativan prn and start BID standing to catatonia, particularly as additional antipsychotics seem to cause EPS. 03/29/21: personal care referral as a diversion option as otherwise considering [facility]. 03/28/21--shift hs meds earlier. Remains unable to care for self outside of the hospital. It does not seem in patient's best interest to continue Invega given overall appearance. 03/27/21--interim care reviewed, plan is to taper and discontinue Seroquel due to potential for additive EPS on Invega sustenna. 03/26/21-Will be speaking with his brother Mauri this afternoon. Goal of discontinuing seroquel to avoid dual antipsychotics. Since he also required IM olanzapine today, per his request, for possible worsening internal stimuli, will get EKG when he's able to tolerate this to ensure QTc is normal. Will avoid cogentin for now as he's been showing brighter affect and it comes with potential for additional cognitive blunting and increases the long-term risk of TD. 03/25/21-Discussed reducing seroquel from 100 mg to 50mg which Froylan consents to, in order to move toward antipsychotic monotherapy with Invega. Propranolol is helping with HTN and seems to be helping with akathisia. Could consider cogentin to see if this lessens EPS symptoms. MOCA score of 24/30, which is abnormal, with all points (except for 1 for no numbers on clock draw) lost on delayed recall. During discussion of his issues with memory he suggested that he gets distracted by internal thoughts and got distressed cut off our conversation at that point which raises suspicion for ongoing internal stimuli and/or thought blocking consistent with primary psychotic disorder which further supports use of Invega GARNICA. 03/24/21--Reviewed records from most recent hospitalization at [facility] from 03/06 through 03/13. Interestingly they were seeing a very similar clinical picture with agitation leading to hospitalization and then no further acute psychiatric symptoms of ronald nor psychosis. They raised consideration for factitious disorder given that Froylan has been known to make statements of SI to seek care and that he struggles to know how to make social connections in a typical way so this could be a way of him meeting these needs. Was unable to do MOCA due to time constraints so will attempt tomorrow. Propranolol 10mg BID added last night due to concern for worsening akathasia and HTN. Will aim to taper Seroquel to discontinuation with goal of Invega monotherapy but will discuss this further with Froylan and his brother. Given history of medication non-adherence after discharge agree with Invega GARNICA as good long-term option. 03/23/21--Considerable time spent over the last three days reviewing and gathering collateral information from his outpatient provider and family. Awaiting records from most recent hospitalization where he apparently recieved GARNICA Invega. Therefore will not add any additional medications until this is clarified. He is spending more time on the unit but is not socializing and is often observed sitting or walking with staring at the wall with no purposeful activity. Will plan to do MOCA tomorrow. Will check in with Mauri again on Monday afternoon. 03/22/21--Continues to present as very concrete and with flat affect and poor eye contact. Gathering collateral with message left with his outpatient psychiatric and plan to contact his brother today. Likely will proceed with starting latuda with dinner for bipolar depression vs mixed episode after further collateral. Also starting daily schedule to encourage behavioral activation and less isolation to his room and to better assess his level of disorganization. 03/21/21: Lipid panel WNL and reassuring in setting of Seroquel use. Diagnostic picture remains unclear, awaiting a few specific titers from recent CSF but otherwise medical workup has been unremarkable. Will attempt further collateral from patient's brother and outpatient psychiatrist tomorrow. Will continue with seroquel 100 mg qhs. 03/20/21: Increase seroquel to 100mg qhs which patient consented to. Provided with screening questionnaires for OCD (Y-BOCS), BPD (mood disorder questionnaire), depression (PHQ-9) and anxiety (JAREK-7). He twice threw away most questionnaires but did fill out the Y-BOCS which noted some obsessions but few compulsions. 03/19/21: The patient was admitted to the [facility] ([facility] inpatient mental health unit) on q15 min checks (behavioral with suicide precautions) for safety. The patient will participate in group, recreational, and milieu therapies and will be offered additional individual and family sessions as clinically appropriate. Continue Seroquel this hs. Consider Latuda trial. Will need to discuss options for longer term hospitalization with family and treatment team. MNPR due to recent aggression. Inventory Assets Strengths: intelligent, has outpatient providers and family involvement Needs: supportive housing, extended hospitalization Risk Factors Assessment Male: Yes : Yes Do You Have Access To A Gun?: No Mental Health Diagnoses: Yes Substance Use Disorders: No Previous Attempt: Yes Previous Psychiatric Hospitalization: Yes Protective Factors Assessment Supportive Family: Yes Interval History Identifying Information 56 yo man with history of renal cancer, sleep disorders, depression, and possible BPAD who was admitted following an episode of [id number] aggression toward a family member and difficulty attending to his basic needs. Multiple psychiatric hospitalizations over the course of last 6 months, failed placement with all available family options with escalation in agitated behavior prior to this admission necessitating medical admission for intubation. Chief Complaint "I'm ok". Review of Systems Sleep Information Total Hours of Sleep: 7.75 Sleep Comments: pt on q-15 minute checks Meal Information Percent Meal Consumed - Breakfast: 100 Percent Meal Consumed - Lunch: 100 Percent Meal Consumed - Dinner: 85 Subjective Subjective Patient was seen & assessed and interval progress reviewed with treatment team nursing and social work. Froylan has been engaging with groups and walking laps and was resting in bed this morning. He reports feeling better since restarting the ativan and denies any current internal stimuli. Cannot expand on any topics of discussion. Denies any medication side effects. Physical Exam Psychiatric Orientation: alert and oriented x 3 Apperance: appropriately dressed and appropriately groomed Eye Contact: + fair eye contact Motor Behavior: steady gait and station, no abnormal motor movements and + EPS (presents with possible masked facies); n akathisia and n tremor Speech: normal rate/rhythm/volume of speech Affect: + blunted affect Mood: no depressed mood Thought Process: + concrete thought process Thought Content: reality based without delusions; no delusions Suicidal Thoughts: denies suicidal thoughts Homicidal Thoughts: denies homicidal thoughts Hallucinations: no auditory hallucinations and no visual hallucinations Cognition: remote memory grossly intact, attention grossly intact and language grossly intact; + recent memory not intact Estimated Intelligence: consistent with education level Insight: + limited insight Judgement: + fair judgement Vital Signs (Past 24 Hours) Last Vital Signs Temp 36.6 C 04/03/21 06:00 Pulse 60 04/03/21 06:27 Resp 16 04/03/21 06:00 BP 131/81 04/03/21 06:27 Pulse Ox 95 03/20/21 21:15 Results & Data ([facility]) Current Inpatient Medications Current Inpatient Medications: Current Inpatient Medications Acetaminophen (Acetaminophen 325 Mg Tab) 650 mg PO Q4H PRN PRN Reason: Headache or Minor Fever Stop: 04/18/21 14:08 Al Hydrox/Mg Hydrox/Simethicone (Aluminum/Magnesium Susp 30 Ml Udc) 30 ml PO Q4H PRN PRN Reason: GI Upset Stop: 04/18/21 14:08 Last Admin: 03/20/21 19:41 Dose: 30 ml Documented by: Bismuth Subsalicylate (Bismuth Subsalicylate Liqd 236 Ml) 15 ml PO PRN PRN PRN Reason: Loose Stool Stop: 04/18/21 14:08 Cyanocobalamin (Cyanocobalamin 500 Mcg Tablet (Vitamin B-12)) 1,000 mcg PO DAILY JACLYN Stop: 04/19/21 08:59 Last Admin: 04/03/21 08:48 Dose: 1,000 mcg Documented by: Famotidine (Famotidine 20 Mg Tab) 20 mg PO DAILY JACLYN Stop: 04/19/21 08:59 Last Admin: 04/03/21 08:48 Dose: 20 mg Documented by: Hydroxyzine HCl (Hydroxyzine Hcl 25 Mg Tab) 50 mg PO HSZ PRN PRN Reason: Insomnia Stop: 04/18/21 14:08 Last Admin: 03/27/21 20:50 Dose: 50 mg Documented by: Hydroxyzine HCl (Hydroxyzine Hcl 25 Mg Tab) 25 mg PO Q4H PRN PRN Reason: Anxiety Stop: 04/18/21 14:08 Last Admin: 03/30/21 09:33 Dose: 25 mg Documented by: Loratadine (Loratadine 10 Mg Tab) 10 mg PO DAILY JACLYN Stop: 04/19/21 08:59 Last Admin: 04/03/21 08:48 Dose: 10 mg Documented by: Lorazepam (Lorazepam 1 Mg Tab) 1 mg PO Q4H PRN PRN Reason: Anxiety/Agitation Stop: 04/29/21 09:35 Last Admin: 03/30/21 10:08 Dose: 1 mg Documented by: Lorazepam (Lorazepam 1 Mg Tab) 1 mg PO BIDM JACLYN Stop: 04/29/21 17:44 Last Admin: 04/03/21 08:49 Dose: 1 mg Documented by: Magnesium Hydroxide (Magnesium Hydroxide Susp 30 Ml Udc) 30 ml PO DAILY PRN PRN Reason: Constipation Stop: 04/18/21 14:08 Olanzapine (Olanzapine 10 Mg/2.1 Ml Sdv) 5 mg IM Q6H PRN PRN Reason: Agitation Stop: 04/29/21 09:33 Last Admin: 03/30/21 09:40 Dose: 5 mg Documented by: Propranolol HCl (Propranolol Hcl 10 Mg Tab) 10 mg PO BID JACLYN Stop: 04/22/21 17:49 Last Admin: 04/03/21 08:48 Dose: 10 mg Documented by: Sodium Chloride (Sodium Chloride 0.65% Na Soln 45 Ml ([place])) 1 - 2 sprays NA PRN PRN PRN Reason: Nasal Dryness/Congestion Stop: 04/18/21 14:08 Tamsulosin HCl (Tamsulosin Hcl 0.4 Mg Cap) 0.4 mg PO TODAY@1930 [facility] Stop: 04/27/21 19:29 Last Admin: 04/02/21 20:07 Dose: 0.4 mg Documented by: Thiamine HCl (Thiamine Hcl 100 Mg Tab) 100 mg PO QAM JACLYN Stop: 04/19/21 08:59 Last Admin: 04/03/21 08:48 Dose: 100 mg Documented by: Mental Health & Subst Abuse Tx Psychiatrist Name of Psychiatrist: Patricia Gautam Psychiatrist's Therapist Name of Therapist: Patricia Lara Therapist's [employer] And [employer] Balancing Technician Name of Air And Hydronic Balancing Technician: [employer] [facility] Phone Number for Air And Hydronic Balancing Technician: [phone] Post Discharge Appointments Primary Care Physician Name Of Family Doctor: CARITO Myers Primary Care Provider Appointment Comment: [address] [facility], [address], [place] Contact Information Discharge Discharge Address: [address] [place] [id number]
[2021-04-03] MEDS: TAMSULOSIN HCL 0.4 MG CAP PO SCH (19:24)
--- NOTE | 2021-04-04 08:23 | Psychiatric Progress Note ---
Date of Service April 04, 2021 Impression / Recommendations Shruthi Galeano is a 56 yo male with a history of bipolar disorder, primarily depression who has been unable to function without the structure of work, unable to care for self at [facility], now failed placement with a relative resulting in multiple inpatient hospitalizations this year (fourth admission since October 2020). He was non adherent with medication and presented with a possible mixed episode of ronald. Records have also raised the question of possible ASD vs late-onset schizophrenia vs factitious disorder. Diagnostically he presents with very concrete thoughts, flat affect and has difficulty discussing his mood or recent challenges which can all be consistent with ASD but he denies history of difficulty with social communication nor restricted repetitive interests. Family collateral and records review does show history of social communication challenges and oddities. Additionally episode leading to hospital sounds consistent with possible ronald v brief psychotic episode. Demonstrated multiple episodes of acute agitation after discontinuation of lorazepam which appeared consistent with agitated catatonia. Additional differential includes side effect Invega, neurocognitive disorder (PICK's disease) though was assessed by neurology. MOCA completed, abnormal clock drawing. He received Invega Sustenna 234 mg IM on 03/09/21 and then second dose of 156 mg on 03/13/21. He will be due for his next dose of 76 mg on 04/09/21. 04/04/21: Seemed to have some unawareness of personal space today/appropriate social boundaries which may represent some ongoing disorganization. Remains mo ble to care for himself independently outside the hospital. (1) Bipolar 1 disorder, mixed: 04/04/21: Stable on ativan, continue current medications. Likely will continue with Invega GARNICA, due 04/09. Continues to demonstrate some difficulty with social boundaries/personal space. 04/03/21: Reviewed interim progress. Continue with current medications incl uding: Invega GARNICA (next due: 04/09), ativan 1 mg BID and propranolol. Slight improvement in speech possibly due to lessening EPS from last GARNICA versus benefit from ativan. No signs of excessive sedation. 04/02/21: Personal nursing home necessary as step down given repeated hospitalizations. Monitor for sedation on Ativan. 03/31/21: brother Dr. Sales updated on patient's condition and retrial of A tivan. Reviewed that still deciding on Invega as best GARNICA option before next shot. 03/30/21: Ativan prn and start BID standing to catatonia, particularly as additional antipsychotics seem to cause EPS. 03/29/21: personal care referral as a diversion option as otherwise [facility]. 03/28/21--shift hs meds earlier. Remains unable to care for self outside of the hospital. It does not seem in patient's best interest to continue Invega given overall appearance. 03/27/21--interim care reviewed, plan is to taper and discontinue Seroquel due to potential for additive EPS on Invega sustenna. 03/26/21-Will be speaking with his brother Mauri this afternoon. Goal of discontinuing seroquel to avoid dual antipsychotics. Since he also required IM olanzapine today, per his request, for possible worsening internal stimuli, will get EKG when he's able to tolerate this to ensure QTc is normal. Will avoid cogentin for now as he's been showing brighter affect and it comes with poten tial for additional cognitive blunting and increases the long-term risk of TD. 03/25/21-Discussed reducing seroquel from 100 mg to 50mg which Froylan consents to, in order to move toward antipsychotic monotherapy with Invega. Propranolol is helping with HTN and seems to be helping with akathisia. Could consider cogentin to see if this lessens EPS symptoms. MOCA score of 2430, which is abnormal, w ith all points (except for 1 for no numbers on clock draw) lost on delayed recall. During discussion of his issues with memory he suggested that he gets distracted by internal thoughts and got distressed cut off our conversation at that point which raises suspicion for ongoing internal stimuli and/or thought blocking consistent with primary psychotic disorder which further supports use of Invega GARNICA. 03/24/21--Reviewed records from most recent hospitalization at [facility] from 03/06 through 03/13. Interestingly they were seeing a very similar clinical picture with agitation leading to hospitalization and then no further acute psychiatric symptoms of ronald nor psychosis. They raised consideration for factitious disorder given that Froylan has been known to make statements of SI to seek care and that he struggles to know how to make social connections in a typical way so this could be a way of him meeting these needs. Was unable to do MOCA due to time constraints so will attempt tomorrow. Propranolol 10mg BID added last night due to concern for worsening akathasia and HTN. Will aim to taper Seroquel to discontinuation with goal of Invega monotherapy but will discuss this further with Froylan and his brother. Given history of medication non-adherence after discharge agree with Invega GARNICA as good long-term option. 03/23/21--Considerable time spent over the last three days reviewing and gathering collateral information from his outpatient provider and family. Awaiting records from most recent hospitalization where he apparently recieved GARNICA Invega. Therefore will not add any additional medications until this is clarified. He is spending more time on the unit but is not socializing and is often observed sitting or walking with staring at the wall with no purposeful activity. Will plan to do MOCA tomorrow. Will check in with Mauri again on Monday afternoon. 03/22/21--Continues to present as very concrete and with flat affect and poor eye contact. Gathering collateral with message left with his outpatient psychiatric and plan to contact his brother today. Likely will proceed with starting latuda with dinner for bipolar depression vs mixed episode after further collateral. Also starting daily schedule to encourage behavioral activation and less isolation to his room and to better assess his level of disorganization. 03/21/21: Lipid panel WNL and reassuring in setting of Seroquel use. Diagnostic picture remains unclear, awaiting a few specific titers from recent CSF but otherwise medical workup has been unremarkable. Will attempt further collateral from patient's brother and outpatient psychiatrist tomorrow. Will continue with seroquel 100 mg qhs. 03/20/21: Increase seroquel to 100mg qhs which patient consented to. Provided with screening questionnaires for OCD (Y-BOCS), BPD (mood disorder questionnaire), depression (PHQ-9) and anxiety (JAREK-7). He twice threw away most questionnaires but did fill out the Y-BOCS which noted some obsessions but few compulsions. 03/19/21: The patient was admitted to the [facility] ([facility] inpatient mental health unit) on q15 min checks (behavioral with suicide precautions) for safety. The patient will participate in group, recreational, and milieu therapies and will be offered additional individual and family sessions as clinically appropriate. Continue Seroquel this hs. Consider Latuda trial. Will need to discuss options for longer term hospitalization with family and treatment team. MNPR due to recent aggression. Inventory Assets Strengths: intelligent, has outpatient providers and family involvement Needs: supportive housing, extended hospitalization Risk Factors Assessment Male: Yes : Yes Do You Have Access To A Gun?: No Mental Health Diagnoses: Yes Substance Use Disorders: No Previous Attempt: Yes Previous Psychiatric Hospitalization: Yes Protective Factors Assessment Supportive Family: Yes Interval History Identifying Information 56 yo man with history of renal cancer, sleep disorders, depression, and possible BPAD who was admitted following an episode of [id number] aggression toward a family member and difficulty attending to his basic needs. Multiple psychiatric hospitalizations over the course of last 6 months, failed placement with all available family options with escalation in agitated behavior prior to this admission necessitating medical admission for intubation. Chief Complaint "I'm ok". Review of Systems Sleep Information Total Hours of Sleep: 7.25 Sleep Comments: pt on q-15 minute checks Meal Information Percent Meal Consumed - Breakfast: 100 Percent Meal Consumed - Lunch: 100 Percent Meal Consumed - Dinner: 100 Subjective Subjective Patient was seen & assessed and interval progress reviewed with treatment team nursing and social work. Showered yesterday and spoke with his son. He's been feeling nervous about potential for personal nursing home after discharge. He continues to be quite guarded about discussing his emotions and thoughts. He remains overwhelmed at times stating things such as "I just don't know". Today he denies any concerns but with questioning notes he still feels anxious at times. He's agreeable to getting another dose of the GARNICA, though noted we'll discuss this with his brother Mauri and continue to consider risks/benefits over the next few days depending on his symptoms and mood. He denies any medication side effects. Physical Exam Psychiatric Orientation: alert and oriented x 3 Apperance: appropriately dressed and appropriately groomed Eye Contact: + fair eye contact Motor Behavior: steady gait and station and + EPS (presents with possible masked facies); n akathisia and n tremor Speech: normal rate/rhythm/volume of speech Affect: + blunted affect Mood: + anxious mood Thought Process: + thought blocking and + concrete thought process; + thought process not goal directed Thought Content: reality based without delusions Suicidal Thoughts: denies suicidal thoughts Homicidal Thoughts: denies homicidal thoughts Hallucinations: no auditory hallucinations and no visual hallucinations Cognition: remote memory grossly intact, attention grossly intact and language grossly intact; + recent memory not intact Estimated Intelligence: consistent with education level Insight: + limited insight Judgement: + limited judgement Vital Signs (Past 24 Hours) Last Vital Signs Temp 36.4 C L 04/04/21 06:00 Pulse 58 L 04/04/21 06:37 Resp 16 04/04/21 06:00 BP 119/82 04/04/21 06:37 Pulse Ox 95 03/20/21 21:15 Results & Data ([facility]) Current Inpatient Medications Current Inpatient Medications: Current Inpatient Medications Acetaminophen (Acetaminophen 325 Mg Tab) 650 mg PO Q4H PRN PRN Reason: Headache or Minor Fever Stop: 04/18/21 14:08 Al Hydrox/Mg Hydrox/Simethicone (Aluminum/Magnesium Susp 30 Ml Udc) 30 ml PO Q4H PRN PRN Reason: GI Upset Stop: 04/18/21 14:08 Last Admin: 03/20/21 19:41 Dose: 30 ml Documented by: Bismuth Subsalicylate (Bismuth Subsalicylate Liqd 236 Ml) 15 ml PO PRN PRN PRN Reason: Loose Stool Stop: 04/18/21 14:08 Cyanocobalamin (Cyanocobalamin 500 Mcg Tablet (Vitamin B-12)) 1,000 mcg PO DAILY JACLYN Stop: 04/19/21 08:59 Last Admin: 04/03/21 08:48 Dose: 1,000 mcg Documented by: Famotidine (Famotidine 20 Mg Tab) 20 mg PO DAILY JACLYN Stop: 04/19/21 08:59 Last Admin: 04/03/21 08:48 Dose: 20 mg Documented by: Hydroxyzine HCl (Hydroxyzine Hcl 25 Mg Tab) 50 mg PO HSZ PRN PRN Reason: Insomnia Stop: 04/18/21 14:08 Last Admin: 03/27/21 20:50 Dose: 50 mg Documented by: Hydroxyzine HCl (Hydroxyzine Hcl 25 Mg Tab) 25 mg PO Q4H PRN PRN Reason: Anxiety Stop: 04/18/21 14:08 Last Admin: 03/30/21 09:33 Dose: 25 mg Documented by: Loratadine (Loratadine 10 Mg Tab) 10 mg PO DAILY JACLYN Stop: 04/19/21 08:59 Last Admin: 04/03/21 08:48 Dose: 10 mg Documented by: Lorazepam (Lorazepam 1 Mg Tab) 1 mg PO Q4H PRN PRN Reason: Anxiety/Agitation Stop: 04/29/21 09:35 Last Admin: 03/30/21 10:08 Dose: 1 mg Documented by: Lorazepam (Lorazepam 1 Mg Tab) 1 mg PO BIDM JACLYN Stop: 04/29/21 17:44 Last Admin: 04/03/21 17:19 Dose: 1 mg Documented by: Magnesium Hydroxide (Magnesium Hydroxide Susp 30 Ml Udc) 30 ml PO DAILY PRN PRN Reason: Constipation Stop: 04/18/21 14:08 Olanzapine (Olanzapine 10 Mg/2.1 Ml Sdv) 5 mg IM Q6H PRN PRN Reason: Agitation Stop: 04/29/21 09:33 Last Admin: 03/30/21 09:40 Dose: 5 mg Documented by: Propranolol HCl (Propranolol Hcl 10 Mg Tab) 10 mg PO BID JACLYN Stop: 04/22/21 17:49 Last Admin: 04/03/21 19:26 Dose: 10 mg Documented by: Sodium Chloride (Sodium Chloride 0.65% Na Soln 45 Ml ([place])) 1 - 2 sprays NA PRN PRN PRN Reason: Nasal Dryness/Congestion Stop: 04/18/21 14:08 Tamsulosin HCl (Tamsulosin Hcl 0.4 Mg Cap) 0.4 mg PO TODAY@1930 [facility] Stop: 04/27/21 19:29 Last Admin: 04/03/21 19:24 Dose: 0.4 mg Documented by: Thiamine HCl (Thiamine Hcl 100 Mg Tab) 100 mg PO QAM JACLYN Stop: 04/19/21 08:59 Last Admin: 04/03/21 08:48 Dose: 100 mg Documented by: Mental Health & Subst Abuse Tx Psychiatrist Name of Psychiatrist: Patricia Gautam Psychiatrist's Therapist Name of Therapist: Patricia Lara Therapist's Specifications Checker Name of Specifications Checker: [facility] Phone Number for Specifications Checker: [phone] Post Discharge Appointments Primary Care Physician Name Of Family Doctor: CARITO Myers Primary Care Provider Appointment Comment: [address] [facility], [address] Contact Information Discharge Discharge Address: [address] [place] [id number]
[2021-04-04] MEDS: CYANOCOBALAMIN 500 MCG TABLET (VITAMIN B-12) PO SCH (09:02)
[2021-04-04] MEDS: FAMOTIDINE 20 MG TAB PO SCH (09:03)
[2021-04-04] MEDS: PROPRANOLOL HCL 10 MG TAB PO SCH ×2 (09:03→20:44)
[2021-04-04] MEDS: LORazepam 1 MG TAB PO SCH ×2 (09:03→17:25)
[2021-04-04] MEDS: LORATADINE 10 MG TAB PO SCH (09:03)
[2021-04-04] MEDS: THIAMINE HCL 100 MG TAB PO SCH (09:04)
[2021-04-04] MEDS: TAMSULOSIN HCL 0.4 MG CAP PO SCH (20:44)
[2021-04-05] MEDS: FAMOTIDINE 20 MG TAB PO SCH (08:23)
[2021-04-05] MEDS: THIAMINE HCL 100 MG TAB PO SCH (08:23)
[2021-04-05] MEDS: LORazepam 1 MG TAB PO SCH ×2 (08:23→17:26)
[2021-04-05] MEDS: CYANOCOBALAMIN 500 MCG TABLET (VITAMIN B-12) PO SCH (08:24)
[2021-04-05] MEDS: PROPRANOLOL HCL 10 MG TAB PO SCH ×2 (08:24→21:48)
[2021-04-05] MEDS: LORATADINE 10 MG TAB PO SCH (08:25)
--- NOTE | 2021-04-05 10:26 | Psychiatric Progress Note ---
Date of Service April 05, 2021 Impression / Recommendations Shruthi Galeano is a 56 yo male with a history of bipolar disorder, primarily depression who has been unable to function without the structure of work, unable to care for self at [facility], now failed placement with a relative resulting in multiple inpatient hospitalizations this year (fourth admission since October 2020). He was non adherent with medication and presented with a possible mixed episode of ronald. Records have also raised the question of possible ASD vs late-onset schizophrenia vs factitious disorder. Diagnostically he presents with very concrete thoughts, flat affect and has difficulty discussing his mood or recent challenges which can all be consistent with ASD but he denies history of difficulty with social communication nor restricted repetitive interests. Family collateral and records review does show history of social communication challenges and oddities. Additionally episode leading to hospital sounds consistent with possible ronald v brief psychotic episode. Demonstrated multiple episodes of acute agitation after discontinuation of lorazepam which appeared consistent with agitated catatonia. Additional differential includes side effect Invega, neurocognitive disorder (PICK's disease) though was assessed by neurology. MOCA completed, abnormal clock drawing. He received Invega Sustenna 234 mg IM on 03/09/21 and then second dose of 156 mg on 03/13/21. He will be due for his next dose of 76 mg on 04/09/21. 04/05/21: Slow improvement with some increased engagement but continues to have prominent negative symptoms associated with schizophrenia/schizoaffective spec trum disorder. Remains unable to care for himself independently outside the hospital. (1) Bipolar 1 disorder, mixed: 04/05/21: continues to have prominent negative symptoms, potentially some EPS from last Invega injection but no significant currency exchange specialist the last two weeks which would expect Parkinsonism symptoms to improve as time to next dose gets closer. Continue current medications of ativan and Invega GARNICA. 04/04/21: Stable on ativan, continue current medications. Likely will continue with Invega GARNICA, due 04/09. Continues to demonstrate some difficulty with social boundaries/personal space. 04/03/21: Reviewed interim progress. Continue with current medications including: Invega GARNICA (next due: 04/09), ativan 1 mg BID and propranolol. Slight improvement in speech possibly due to lessening EPS from last GARNICA versus benefit from ativan. No signs of excessive sedation. 04/02/21: Personal group home necessary as step down given repeated hospi talizations. Monitor for sedation on Ativan. 03/31/21: brother Dr. Sales updated on patient's condition and retrial of Ativan. Reviewed that still deciding on Invega as best GARNICA option before next shot. 03/30/21: Ativan prn and start BID standing to catatonia, particularly as additional antipsychotics seem to cause EPS. 03/29/21: personal care referral as a diversion option as otherwise [facility]. 03/28/21--shift hs meds earlier. Remains unable to care for self outside of the hospital. It does not seem in patient's best interest to continue Invega given overall appearance. 03/27/21--interim care reviewed, plan is to taper and discontinue Seroquel due to potential for additive EPS on Invega sustenna. 03/26/21-Will be speaking with his brother Mauri this afternoon. Goal of discontinuing seroquel to avoid dual antipsychotics. Since he also required IM olanzapine today, per his request, for possible worsening internal stimuli, will get EKG when he's able to tolerate this to ensure QTc is normal. Will avoid cogentin for now as he's been showing brighter affect and it comes with potential for additional cognitive blunting and increases the long-term risk of TD. 03/25/21-Discussed reducing seroquel from 100 mg to 50mg which Froylan consents to, in order to move toward antipsychotic monotherapy with Invega. Propranolol is helping with HTN and seems to be helping with akathisia. Could consider cogentin to see if this lessens EPS symptoms. MOCA score of 24/30, which is abnormal, with all points (except for 1 for no numbers on clock draw) lost on delayed r ecall. During discussion of his issues with memory he suggested that he gets distracted by internal thoughts and got distressed cut off our conversation at that point which raises suspicion for ongoing internal stimuli and/or thought blocking consistent with primary psychotic disorder which further supports use of Invega GARNICA. 03/24/21--Reviewed records from most recent hospitalization at [facility] from 03/06 through 03/13. Interestingly they were seeing a very similar clinical picture with agitation leading to hospitalization and then no further acute psychiatric symptoms of ronald nor psychosis. They raised consideration for factitious disorder given that Froylan has been known to make statements of SI to seek care and that he struggles to know how to make social connections in a typical way so this could be a way of him meeting these needs. Was unable to do MOCA due to time constraints so will attempt tomorrow. Propranolol 10mg BID added last night due to concern for worsening akathasia and HTN. Will aim to taper Seroquel to discontinuation with goal of Invega monotherapy but will discuss this further with Froylan and his brother. Given history of medication non-adherence after discharge agree with Invega GARNICA as good long-term option. 03/23/21--Considerable time spent over the last three days reviewing and gathering collateral information from his outpatient provider and family. Awaiting records from most recent hospitalization where he apparently recieved GARNICA Invega. Therefore will not add any additional medications until this is clarified. He is spending more time on the unit but is not socializing and is often observed sitting or walking with staring at the wall with no purposeful activity. Will plan to do MOCA tomorrow. Will check in with Mauri again on Monday afternoon. 03/22/21--Continues to present as very concrete and with flat affect and poor eye contact. Gathering collateral with message left with his outpatient psychiatric and plan to contact his brother today. Likely will proceed with starting latuda with dinner for bipolar depression vs mixed episode after further collateral. Also starting daily schedule to encourage behavioral activation and less isolation to his room and to better assess his level of disorganization. 03/21/21: Lipid panel WNL and reassuring in setting of Seroquel use. Diagnostic picture remains unclear, awaiting a few specific titers from recent CSF but otherwise medical workup has been unremarkable. Will attempt further collateral from patient's brother and outpatient psychiatrist tomorrow. Will continue with seroquel 100 mg qhs. 03/20/21: Increase seroquel to 100mg qhs which patient consented to. Provided with screening questionnaires for OCD (Y-BOCS), BPD (mood disorder questionnaire), depression (PHQ-9) and anxiety (JAREK-7). He twice threw away most questionnaires but did fill out the Y-BOCS which noted some obsessions but few compulsions. 03/19/21: The patient was admitted to the [facility] ([facility] unit) on q15 min checks (behavioral with suicide precautions) for safety. The patient will participate in group, recreational, and milieu therapies and will be offered additional individual and family sessions as clinically appropriate. Continue Seroquel this hs. Consider Latuda trial. Will need to discuss options for longer term hospitalization with family and treatment team. MNPR due to recent aggression. Inventory Assets Strengths: intelligent, has outpatient providers and family involvement Needs: supportive housing, extended hospitalization Risk Factors Assessment Male: Yes : Yes Do You Have Access To A Gun?: No Mental Health Diagnoses: Yes Substance Use Disorders: No Previous Attempt: Yes Previous Psychiatric Hospitalization: Yes Protective Factors Assessment Supportive Family: Yes Interval History Identifying Information 56 yo man with history of renal cancer, sleep disorders, depression, and possible BPAD who was admitted following an episode of [id number] aggression toward a family member and difficulty attending to his basic needs. Multiple psychiatric hospitalizations over the course of last 6 months, failed placement with all available family options with escalation in agitated behavior prior to this admission necessitating medical admission for intubation. Chief Complaint "I'm alright". Review of Systems Sleep Information Total Hours of Sleep: 8.25 Sleep Comments: pt appeared to sleep 1.25 hrs during evening shift. pt on q-15 minute checks Meal Information Percent Meal Consumed - Breakfast: 100 Percent Meal Consumed - Lunch: 100 Percent Meal Consumed - Dinner: 100 Subjective Subjective Patient was seen & assessed and interval progress reviewed with treatment team nursing and social work. Slightly bradycardic yesterday but vitals normal this morning. He denies any dizziness or orthostatic hypotension symptoms since restarting ativan. He reports stable mood and denies any medication side effects. Observed by staff to be slightly brighter and more engaged with some interactions but continues to offer few spontaneous conversations or interactions. At times stays in his bathroom concerning for possible paranoid ideation though he denies any current AH. Physical Exam Psychiatric Orientation: alert and oriented x 3 Apperance: appropriately dressed and appropriately groomed Eye Contact: + poor eye contact Motor Behavior: steady gait and station, no abnormal motor movements and + EPS (presents with possible masked facies); n akathisia and n tremor Speech: normal rate/rhythm/volume of speech Affect: + blunted affect Mood: + anxious mood; no depressed mood Thought Process: + thought blocking and + concrete thought process Thought Content: + paranoid; no delusions Suicidal Thoughts: denies suicidal thoughts Homicidal Thoughts: denies homicidal thoughts Hallucinations: no auditory hallucinations and no visual hallucinations Cognition: remote memory grossly intact, attention grossly intact and language grossly intact; + recent memory not intact Estimated Intelligence: consistent with education level Insight: + limited insight Judgement: + limited judgement Vital Signs (Past 24 Hours) Last Vital Signs Temp 36.6 C 04/05/21 06:21 Pulse 68 04/05/21 08:30 Resp 16 04/05/21 06:21 BP 105/70 04/05/21 08:30 Pulse Ox 95 03/20/21 21:15 Results & Data ([facility]) Current Inpatient Medications Current Inpatient Medications: Current Inpatient Medications Acetaminophen (Acetaminophen 325 Mg Tab) 650 mg PO Q4H PRN PRN Reason: Headache or Minor Fever Stop: 04/18/21 14:08 Al Hydrox/Mg Hydrox/Simethicone (Aluminum/Magnesium Susp 30 Ml Udc) 30 ml PO Q4H PRN PRN Reason: GI Upset Stop: 04/18/21 14:08 Last Admin: 03/20/21 19:41 Dose: 30 ml Documented by: Bismuth Subsalicylate (Bismuth Subsalicylate Liqd 236 Ml) 15 ml PO PRN PRN PRN Reason: Loose Stool Stop: 04/18/21 14:08 Cyanocobalamin (Cyanocobalamin 500 Mcg Tablet (Vitamin B-12)) 1,000 mcg PO DAILY JACLYN Stop: 04/19/21 08:59 Last Admin: 04/05/21 08:24 Dose: 1,000 mcg Documented by: Famotidine (Famotidine 20 Mg Tab) 20 mg PO DAILY JACLYN Stop: 04/19/21 08:59 Last Admin: 04/05/21 08:23 Dose: 20 mg Documented by: Hydroxyzine HCl (Hydroxyzine Hcl 25 Mg Tab) 50 mg PO HSZ PRN PRN Reason: Insomnia Stop: 04/18/21 14:08 Last Admin: 03/27/21 20:50 Dose: 50 mg Documented by: Hydroxyzine HCl (Hydroxyzine Hcl 25 Mg Tab) 25 mg PO Q4H PRN PRN Reason: Anxiety Stop: 04/18/21 14:08 Last Admin: 03/30/21 09:33 Dose: 25 mg Documented by: Loratadine (Loratadine 10 Mg Tab) 10 mg PO DAILY JACLYN Stop: 04/19/21 08:59 Last Admin: 04/05/21 08:25 Dose: 10 mg Documented by: Lorazepam (Lorazepam 1 Mg Tab) 1 mg PO Q4H PRN PRN Reason: Anxiety/Agitation Stop: 04/29/21 09:35 Last Admin: 03/30/21 10:08 Dose: 1 mg Documented by: Lorazepam (Lorazepam 1 Mg Tab) 1 mg PO BIDM JACLYN Stop: 04/29/21 17:44 Last Admin: 04/05/21 08:23 Dose: 1 mg Documented by: Magnesium Hydroxide (Magnesium Hydroxide Susp 30 Ml Udc) 30 ml PO DAILY PRN PRN Reason: Constipation Stop: 04/18/21 14:08 Olanzapine (Olanzapine 10 Mg/2.1 Ml Sdv) 5 mg IM Q6H PRN PRN Reason: Agitation Stop: 04/29/21 09:33 Last Admin: 03/30/21 09:40 Dose: 5 mg Documented by: Propranolol HCl (Propranolol Hcl 10 Mg Tab) 10 mg PO BID JACLYN Stop: 04/22/21 17:49 Last Admin: 04/05/21 08:24 Dose: 10 mg Documented by: Sodium Chloride (Sodium Chloride 0.65% Na Soln 45 Ml ([place])) 1 - 2 sprays NA PRN PRN PRN Reason: Nasal Dryness/Congestion Stop: 04/18/21 14:08 Tamsulosin HCl (Tamsulosin Hcl 0.4 Mg Cap) 0.4 mg PO TODAY@1930 [facility] Stop: 04/27/21 19:29 Last Admin: 04/04/21 20:44 Dose: 0.4 mg Documented by: Thiamine HCl (Thiamine Hcl 100 Mg Tab) 100 mg PO QAM JACLYN Stop: 04/19/21 08:59 Last Admin: 04/05/21 08:23 Dose: 100 mg Documented by: Mental Health & Subst Abuse Tx Psychiatrist Name of Psychiatrist: Patricia Gautam Psychiatrist's Therapist Name of Therapist: Patricia Lara Therapist's Director Compliance Name of Director Compliance: [facility] Phone Number for Director Compliance: [phone] Post Discharge Appointments Primary Care Physician Name Of Family Doctor: CARITO Myers Primary Care Provider Appointment Comment: [address], [address], [place] Contact Information Discharge Discharge Address: [address] [place] [id number]
[2021-04-05] MEDS: TAMSULOSIN HCL 0.4 MG CAP PO SCH (21:48)
[2021-04-06] MEDS: LORATADINE 10 MG TAB PO SCH (08:29)
[2021-04-06] MEDS: CYANOCOBALAMIN 500 MCG TABLET (VITAMIN B-12) PO SCH (08:29)
[2021-04-06] MEDS: FAMOTIDINE 20 MG TAB PO SCH (08:29)
[2021-04-06] MEDS: LORazepam 1 MG TAB PO SCH ×2 (08:30→17:40)
[2021-04-06] MEDS: THIAMINE HCL 100 MG TAB PO SCH (08:30)
[2021-04-06] MEDS: PROPRANOLOL HCL 10 MG TAB PO SCH ×2 (08:30→19:34)
--- NOTE | 2021-04-06 08:38 | Psychiatric Progress Note ---
Date of Service April 06, 2021 Impression / Recommendations Shruthi Galeano is a 56 yo male with a history of bipolar disorder, primarily depression who has been unable to function without the structure of work and unable to care for self at [facility] [place] resulting in multiple inpatient hospitalizations this year (fourth admission since October 2020). He was non adherent with medication and presented with a possible mixed episode of ronald versus agitated catatonia as he seems to often forget to take his lorazepam after discharge and then decompensates. Diagnostically he presents with very concrete thoughts, flat affect and has difficulty discussing his mood or recent challenges which can all be consistent with ASD but he denies history of difficulty with social communication nor restricted repetitive interests. Family collateral and records review does show history of social communication challenges and that tended to prefer being by himself. He received Invega Sustenna 234 mg IM on 03/09/21 and then second dose of 156 mg on 03/13/21. He will be due for his next dose of 76 mg on 04/09/21. No current symptoms of psychosis. 04/06/21: Steady improvement with some increased engagement but continues to have prominent negative symptoms which may be due to schizophrenia versus medication side effects versus ASD. Remains unable to care for himself independently outside the hospital and looking into personal long-term options. Plan: left message with update for his brother Mauri as we had planned to speak at 4:30pm today, gave him call back information as well as option to call the unit tomorrow afternoon to speak then. Discussed with Froylan how he feels about personal long-term which he remains agreeable to. (1) Bipolar 1 disorder, mixed: 04/06/21: appropriate with engagement, showing some brightening in terms of greeting staff and communicating a bit more, remains polite. Continue current medications and plan for Invega GARNICA on 04/09/21. 04/05/21: continues to have prominent negative symptoms, potentially some EPS from last Invega injection but no significant change management lead the last two weeks which would expect Parkinsonism symptoms to improve as time to next dose gets closer. Continue current medications of ativan and Invega GARNICA. 04/04/21: Stable on ativan, continue current medications. Likely will continue with Invega GARNICA, due 04/09. Continues to demonstrate some difficulty with social boundaries/personal space. 04/03/21: Reviewed interim progress. Continue with current medications including: Invega GARNICA (next due: 04/09), ativan 1 mg BID and propranolol. Slight improvement in speech possibly due to lessening EPS from last GARNICA versus benefit from ativan. No signs of excessive sedation. 04/02/21: Personal long-term necessary as step down given repeated hospitalizations. Monitor for sedation on Ativan. 03/31/21: brother Dr. Sales updated on patient's condition and retrial of Ativan. Reviewed that still deciding on Invega as best GARNICA option before next shot. 03/30/21: Ativan prn and start BID standing to catatonia, particularly as additional antipsychotics seem to cause EPS. 03/29/21: personal care referral as a diversion option as otherwise considering [facility]. 03/28/21--shift hs meds earlier. Remains unable to care for self outside of the hospital. It does not seem in patient's best interest to continue Invega given overall appearance. 03/27/21--interim care reviewed, plan is to taper and discontinue Seroquel due to potential for additive EPS on Invega sustenna. 03/26/21-Will be speaking with his brother Mauri this afternoon. Goal of discontinuing seroquel to avoid dual antipsychotics. Since he also required IM olanzapine today, per his request, for possible worsening internal stimuli, will get EKG when he's able to tolerate this to ensure QTc is normal. Will avoid cogentin for now as he's been showing brighter affect and it comes with potential for additional cognitive blunting and increases the long-term risk of TD. 03/25/21-Discussed reducing seroquel from 100 mg to 50mg which Froylan consents to, in order to move toward antipsychotic monotherapy with Invega. Propranolol is helping with HTN and seems to be helping with akathisia. Could consider cogentin to see if this lessens EPS symptoms. MOCA score of 24/30, which is abnormal, with all points (except for 1 for no numbers on clock draw) lost on delayed recall. During discussion of his issues with memory he suggested that he gets distracted by internal thoughts and got distressed cut off our conversation at that point which raises suspicion for ongoing internal stimuli and/or thought blocking consistent with primary psychotic disorder which further supports use of Invega GARNICA. 03/24/21--Reviewed records from most recent hospitalization at [facility] from 03/06 through 03/13. Interestingly they were seeing a very similar clinical picture with agitation leading to hospitalization and then no further acute psychiatric symptoms of ronald nor psychosis. They raised consideration for factitious disorder given that Froylan has been known to make statements of SI to seek care and that he struggles to know how to make social connections in a typical way so this could be a way of him meeting these needs. Was unable to do MOCA due to time constraints so will attempt tomorrow. Propranolol 10mg BID added last night due to concern for worsening akathasia and HTN. Will aim to taper Seroquel to discontinuation with goal of Invega monotherapy but will discuss this further with Froylan and his brother. Given history of medication non-adherence after discharge agree with Invega GARNICA as good long-term option. 03/23/21--Considerable time spent over the last three days reviewing and gathering collateral information from his outpatient provider and family. Awaiting records from most recent hospitalization where he apparently recieved GARNICA Invega. Therefore will not add any additional medications until this is clarified. He is spending more time on the unit but is not socializing and is often observed sitting or walking with staring at the wall with no purposeful activity. Will plan to do MOCA tomorrow. Will check in with Mauri again on Monday afternoon. 03/22/21--Continues to present as very concrete and with flat affect and poor eye contact. Gathering collateral with message left with his outpatient psychiatric and plan to contact his brother today. Likely will proceed with starting latuda with dinner for bipolar depression vs mixed episode after further collateral. Also starting daily schedule to encourage behavioral activation and less isolation to his room and to better assess his level of disorganization. 03/21/21: Lipid panel WNL and reassuring in setting of Seroquel use. Diagnostic picture remains unclear, awaiting a few specific titers from recent CSF but otherwise medical workup has been unremarkable. Will attempt further collateral from patient's brother and outpatient psychiatrist tomorrow. Will continue with seroquel 100 mg qhs. 03/20/21: Increase seroquel to 100mg qhs which patient consented to. Provided with screening questionnaires for OCD (Y-BOCS), BPD (mood disorder questionnaire), depression (PHQ-9) and anxiety (JAREK-7). He twice threw away most questionnaires but did fill out the Y-BOCS which noted some obsessions but few compulsions. 03/19/21: The patient was [facility]) on q15 min checks (behavioral with suicide precautions) for safety. The patient will participate in group, recreational, and milieu therapies and will be offered additional individual and family sessions as clinically appropriate. Continue Seroquel this hs. Consider Latuda trial. Will need to discuss options for longer term hospitalization with family and treatment team. MNPR due to recent aggression. Inventory Assets Strengths: intelligent, has outpatient providers and family involvement Needs: supportive housing, extended hospitalization Risk Factors Assessment Male: Yes : Yes Do You Have Access To A Gun?: No Mental Health Diagnoses: Yes Substance Use Disorders: No Previous Attempt: Yes Previous Psychiatric Hospitalization: Yes Protective Factors Assessment Supportive Family: Yes Interval History Identifying Information 56 yo man with history of renal cancer, sleep disorders, depression, and possible BPAD who was admitted following an episode of [id number] aggression toward a family member and difficulty attending to his basic needs. Multiple psychiatric hospitalizations over the course of last 6 months, failed placement with all available family options with escalation in agitated behavior prior to this admission necessitating medical admission for intubation. Chief Complaint "I'm good". Review of Systems Sleep Information Total Hours of Sleep: 6 Sleep Comments: pt on q-15 minute check. Awake x1 to eat ice cream. pt appeared to have flat affect Meal Information Percent Meal Consumed - Breakfast: 100 Percent Meal Consumed - Lunch: 100 Percent Meal Consumed - Dinner: 100 Subjective Subjective Patient was seen & assessed and interval progress reviewed with treatment team nursing and social work. He signed paperwork regarding options for [facility] yesterday. Was out of his room and greeting staff politely. Today greets me in the hallway multiple times and sits up to talk when I meet with him in the afternoon. He notes his mood is "good" and denies any medication side effects. Remains agreeable with plan for personal long-term. Continues to be polite and appropriate with all his interactions but prefers not to speak at length during individual interactions though he has continued to engage well in groups. Physical Exam Psychiatric Orientation: alert and oriented x 3 Apperance: appropriately dressed and appropriately groomed Eye Contact: + fair eye contact Motor Behavior: steady gait and station, no abnormal motor movements and + EPS Speech: normal rate/rhythm/volume of speech Affect: + flat affect Mood: no depressed mood and no anxious mood Thought Process: linear/logical thought process Thought Content: reality based without delusions Suicidal Thoughts: denies suicidal thoughts Homicidal Thoughts: denies homicidal thoughts Hallucinations: no auditory hallucinations and no visual hallucinations Cognition: remote memory grossly intact, attention grossly intact and language grossly intact; + recent memory not intact Estimated Intelligence: consistent with education level Insight: + fair insight Judgement: + fair judgement Vital Signs (Past 24 Hours) Last Vital Signs Temp 36.7 C 04/05/21 20:00 Pulse 59 L 04/06/21 06:52 Resp 16 04/05/21 06:21 BP 101/66 04/06/21 06:52 Pulse Ox 95 03/20/21 21:15 Results & Data ([facility]) Current Inpatient Medications Current Inpatient Medications: Current Inpatient Medications Acetaminophen (Acetaminophen 325 Mg Tab) 650 mg PO Q4H PRN PRN Reason: Headache or Minor Fever Stop: 04/18/21 14:08 Al Hydrox/Mg Hydrox/Simethicone (Aluminum/Magnesium Susp 30 Ml Udc) 30 ml PO Q4H PRN PRN Reason: GI Upset Stop: 04/18/21 14:08 Last Admin: 03/20/21 19:41 Dose: 30 ml Documented by: Bismuth Subsalicylate (Bismuth Subsalicylate Liqd 236 Ml) 15 ml PO PRN PRN PRN Reason: Loose Stool Stop: 04/18/21 14:08 Cyanocobalamin (Cyanocobalamin 500 Mcg Tablet (Vitamin B-12)) 1,000 mcg PO DAILY JACLYN Stop: 04/19/21 08:59 Last Admin: 04/06/21 08:29 Dose: 1,000 mcg Documented by: Famotidine (Famotidine 20 Mg Tab) 20 mg PO DAILY JACLYN Stop: 04/19/21 08:59 Last Admin: 04/06/21 08:29 Dose: 20 mg Documented by: Hydroxyzine HCl (Hydroxyzine Hcl 25 Mg Tab) 50 mg PO HSZ PRN PRN Reason: Insomnia Stop: 04/18/21 14:08 Last Admin: 03/27/21 20:50 Dose: 50 mg Documented by: Hydroxyzine HCl (Hydroxyzine Hcl 25 Mg Tab) 25 mg PO Q4H PRN PRN Reason: Anxiety Stop: 04/18/21 14:08 Last Admin: 03/30/21 09:33 Dose: 25 mg Documented by: Loratadine (Loratadine 10 Mg Tab) 10 mg PO DAILY JACLYN Stop: 04/19/21 08:59 Last Admin: 04/06/21 08:29 Dose: 10 mg Documented by: Lorazepam (Lorazepam 1 Mg Tab) 1 mg PO Q4H PRN PRN Reason: Anxiety/Agitation Stop: 04/29/21 09:35 Last Admin: 03/30/21 10:08 Dose: 1 mg Documented by: Lorazepam (Lorazepam 1 Mg Tab) 1 mg PO BIDM [facility] Stop: 04/29/21 17:44 Last Admin: 04/06/21 08:30 Dose: 1 mg Documented by: Magnesium Hydroxide (Magnesium Hydroxide Susp 30 Ml Udc) 30 ml PO DAILY PRN PRN Reason: Constipation Stop: 04/18/21 14:08 Olanzapine (Olanzapine 10 Mg/2.1 Ml Sdv) 5 mg IM Q6H PRN PRN Reason: Agitation Stop: 04/29/21 09:33 Last Admin: 03/30/21 09:40 Dose: 5 mg Documented by: Propranolol HCl (Propranolol Hcl 10 Mg Tab) 10 mg PO BID [facility] Stop: 04/22/21 17:49 Last Admin: 04/06/21 08:30 Dose: 10 mg Documented by: Sodium Chloride (Sodium Chloride 0.65% Na Soln 45 Ml ([place])) 1 - 2 sprays NA PRN PRN PRN Reason: Nasal Dryness/Congestion Stop: 04/18/21 14:08 Tamsulosin HCl (Tamsulosin Hcl 0.4 Mg Cap) 0.4 mg PO TODAY@1930 [facility] Stop: 04/27/21 19:29 Last Admin: 04/05/21 21:48 Dose: 0.4 mg Documented by: Thiamine HCl (Thiamine Hcl 100 Mg Tab) 100 mg PO QAM [facility] Stop: 04/19/21 08:59 Last Admin: 04/06/21 08:30 Dose: 100 mg Documented by: Mental Health & Subst Abuse Tx Psychiatrist Name of Psychiatrist: Patricia Gautam Psychiatrist's Therapist Name of Therapist: Patricia Lara Therapist's Land Agent Name of Land Agent: [facility] Phone Number for Land Agent: [phone] Post Discharge Appointments Primary Care Physician Name Of Family Doctor: CARITO Myers Primary Care Provider Appointment Comment: [address], [address], [place] Contact Information Discharge Discharge Address: [address] [place] [address]
[2021-04-06] MEDS: TAMSULOSIN HCL 0.4 MG CAP PO SCH (19:34)
[2021-04-07] MEDS: CYANOCOBALAMIN 500 MCG TABLET (VITAMIN B-12) PO SCH (08:19)
[2021-04-07] MEDS: FAMOTIDINE 20 MG TAB PO SCH (08:20)
[2021-04-07] MEDS: LORATADINE 10 MG TAB PO SCH (08:20)
[2021-04-07] MEDS: PROPRANOLOL HCL 10 MG TAB PO SCH ×2 (08:20→20:11)
[2021-04-07] MEDS: THIAMINE HCL 100 MG TAB PO SCH (08:21)
[2021-04-07] MEDS: LORazepam 1 MG TAB PO SCH ×2 (08:22→16:39)
--- NOTE | 2021-04-07 14:03 | Psychiatric Progress Note ---
Date of Service April 07, 2021 Impression / Recommendations Shruthi Galeano is a 56 yo male with a history of bipolar disorder, primarily depression who has been unable to function without the structure of work and [facility] this [facility] (fourth admission since October 2020). He was non adherent with medication and presented with a possible mixed episode of ronald versus agitated catatonia as he seems to often forget to take his lorazepam after discharge and then decompensates. Diagnostically he presents with very concrete thoughts, flat affect and has difficulty discussing his mood or recent challenges which can all be consistent with ASD but he denies history of difficulty with social communication nor restricted repetitive interests. Family collateral and records review does show history of social communication challenges and that tended to prefer being by himself. He received Invega Sustenna 234 mg IM on 03/09/21 and then second dose of 156 mg on 03/13/21. He will be due for his next dose of 76 mg on 04/09/21. No current symptoms of psychosis. 04/07/21: Steady improvement with some increased engagement but continues to have prominent negative symptoms which may be due to schizophrenia versus medication side effects versus ASD. Remains unable to care for himself independently outside the hospital and looking into personal nursing home options. Plan: will speak with Mauri this afternoon to provide clinical update and discussion of plan for Invega on Monday. Discussed with Froylan plan for Invega on Monday which he remains in agreement with. (1) Bipolar 1 disorder, mixed: 04/07/21: continue current medications. Discussing personal nursing home plans with him and helping him cope with anxiety that transitions bring for him. 04/06/21: appropriate with engagement, showing some brightening in terms of greeting staff and communicating a bit more, remains polite. Continue current medications and plan for Invega GARNICA on 04/09/21. 04/05/21: continues to have prominent negative symptoms, potentially some EPS from last Invega injection but no significant jacquard loom card changer the last two weeks which would expect Parkinsonism symptoms to improve as time to next dose gets closer. Continue current medications of ativan and Invega GARNICA. 04/04/21: Stable on ativan, continue current medications. Likely will continue with Invega GARNICA, due 04/09. Continues to demonstrate some difficulty with social boundaries/personal space. 04/03/21: Reviewed interim progress. Continue with current medications including: Invega GARNICA (next due: 04/09), ativan 1 mg BID and propranolol. Slight improvement in speech possibly due to lessening EPS from last GARNICA versus benefit from ativan. No signs of excessive sedation. 04/02/21: Personal nursing home necessary as step down given repeated hospitalizations. Monitor for sedation on Ativan. 03/31/21: brother Dr. Sales updated on patient's condition and retrial of Ativan. Reviewed that still deciding on Invega as best GARNICA option before next shot. 03/30/21: Ativan prn and start BID standing to catatonia, particularly as additional antipsychotics seem to cause EPS. 03/29/21: personal care referral as a diversion option as otherwise considering critical access hospital hospital. 03/28/21--shift hs meds earlier. Remains unable to care for self outside of the hospital. It does not seem in patient's best interest to continue Invega given overall appearance. 03/27/21--interim care reviewed, plan is to taper and discontinue Seroquel due to potential for additive EPS on Invega sustenna. 03/26/21-Will be speaking with his brother Mauri this afternoon. Goal of discontinuing seroquel to avoid dual antipsychotics. Since he also required IM olanzapine today, per his request, for possible worsening internal stimuli, will get EKG when he's able to tolerate this to ensure QTc is normal. Will avoid cogentin for now as he's been showing brighter affect and it comes with potential for additional cognitive blunting and increases the long-term risk of TD. 03/25/21-Discussed reducing seroquel from 100 mg to 50mg which Froylan consents to, in order to move toward antipsychotic monotherapy with Invega. Propranolol is helping with HTN and seems to be helping with akathisia. Could consider cogentin to see if this lessens EPS symptoms. MOCA score of 24/30, which is abnormal, with all points (except for 1 for no numbers on clock draw) lost on delayed recall. During discussion of his issues with memory he suggested that he gets distracted by internal thoughts and got distressed cut off our conversation at that point which raises suspicion for ongoing internal stimuli and/or thought blocking consistent with primary psychotic disorder which further supports use of Invega GARNICA. 03/24/21--Reviewed records from most recent hospitalization at [facility] from 03/06 through 03/13. Interestingly they were seeing a very similar clinical picture with agitation leading to hospitalization and then no further acute psychiatric symptoms of ronald nor psychosis. They raised consideration for factitious disorder given that Froylan has been known to make statements of SI to seek care and that he struggles to know how to make social connections in a typical way so this could be a way of him meeting these needs. Was unable to do MOCA due to time constraints so will attempt tomorrow. Propranolol 10mg BID added last night due to concern for worsening akathasia and HTN. Will aim to taper Seroquel to discontinuation with goal of Invega monotherapy but will discuss this further with Froylan and his brother. Given history of medication non-adherence after discharge agree with Invega GARNICA as good long-term option. 03/23/21--Considerable time spent over the last three days reviewing and gathering collateral information from his outpatient provider and family. Awaiting records from most recent hospitalization where he apparently recieved GARNICA Invega. Therefore will not add any additional medications until this is clarified. He is spending more time on the unit but is not socializing and is often observed sitting or walking with staring at the wall with no purposeful activity. Will plan to do MOCA tomorrow. Will check in with Mauri again on Monday afternoon. 03/22/21--Continues to present as very concrete and with flat affect and poor eye contact. Gathering collateral with message left with his outpatient psych iatric and plan to contact his brother today. Likely will proceed with starting latuda with dinner for bipolar depression vs mixed episode after further collateral. Also starting daily schedule to encourage behavioral activation and less isolation to his room and to better assess his level of disorganization. 03/21/21: Lipid panel WNL and reassuring in setting of Seroquel use. Diagnostic picture remains unclear, awaiting a few specific titers from recent CSF but otherwise medical workup has been unremarkable. Will attempt further collateral from patient's brother and outpatient psychiatrist tomorrow. Will continue with seroquel 100 mg qhs. 03/20/21: Increase seroquel to 100mg qhs which patient consented to. Provided with screening questionnaires for OCD (Y-BOCS), BPD (mood disorder qu estionnaire), depression (PHQ-9) and anxiety (JAREK-7). He twice threw away most questionnaires but did fill out the Y-BOCS which noted some obsessions but few compulsions. 03/19/21: The patient was admitted to the [facility] ([facility] mental health unit) on q15 min checks (behavioral with suicide precautions) for safety. The patient will participate in group, recreational, and milieu therapies and will be offered additional individual and family sessions as clinically appropriate. Continue Seroquel this hs. Consider Latuda trial. Will need to discuss options for longer term hospitalization with family and treatment team. MNPR due to recent aggression. Inventory Assets Strengths: intelligent, has outpatient providers and family involvement Needs: supportive housing, extended hospitalization Risk Factors Assessment Male: Yes : Yes Do You Have Access To A Gun?: No Mental Health Diagnoses: Yes Substance Use Disorders: No Previous Attempt: Yes Previous Psychiatric Hospitalization: Yes Protective Factors Assessment Supportive Family: Yes Interval History Identifying Information 56 yo man with history of renal cancer, sleep disorders, depression, and possible BPAD who was admitted following an episode of [id number] aggression toward a family member and difficulty attending to his basic needs. Multiple psychiatric hospitalizations over the course of last 6 months, failed placement with all available family options with escalation in agitated behavior prior to this admission necessitating medical admission for intubation. Chief Complaint "I'm pretty good". Review of Systems Sleep Information Total Hours of Sleep: 8.5 Sleep Comments: pt appeared to sleep 1.5 hrs during evening shift. pt on q-15 minute checks Meal Information Percent Meal Consumed - Breakfast: 100 Percent Meal Consumed - Lunch: 100 Percent Meal Consumed - Dinner: 100 Nutrition Comment: per meal record Subjective Subjective Patient was seen & assessed and interval progress reviewed with treatment team nursing and social work. Froylan reports euthymic mood today and denies any medication side effects. Began working on his safety plan. Continues to need breaks with tasks that require sustained attention such as working on the safety plan or filling out paperwork. He has been participating in lots of activities with the [employer] and showing no muscle stiffness during these activities which is encouraging given earlier concern for EPS/Parkinsonism side effects. Physical Exam Psychiatric Orientation: alert and oriented x 3 Apperance: appropriately dressed and appropriately groomed Eye Contact: good eye contact Motor Behavior: steady gait and station and no abnormal motor movements; n akathisia and n tremor Speech: normal rate/rhythm/volume of speech Affect: + flat affect Mood: no depressed mood and no anxious mood Thought Process: + concrete thought process Thought Content: reality based without delusions; no delusions Suicidal Thoughts: denies suicidal thoughts Homicidal Thoughts: denies homicidal thoughts Hallucinations: no auditory hallucinations and no visual hallucinations Cognition: remote memory grossly intact, attention grossly intact and language grossly intact; + recent memory not intact Estimated Intelligence: consistent with education level Insight: + limited insight Judgement: + fair judgement Vital Signs (Past 24 Hours) Last Vital Signs Temp 36.7 C 04/07/21 06:57 Pulse 57 L 04/07/21 06:58 Resp 16 04/07/21 06:57 BP 108/71 04/07/21 06:58 Pulse Ox 95 03/20/21 21:15 Results & Data ([facility]) Current Inpatient Medications Current Inpatient Medications: Current Inpatient Medications Acetaminophen (Acetaminophen 325 Mg Tab) 650 mg PO Q4H PRN PRN Reason: Headache or Minor Fever Stop: 04/18/21 14:08 Al Hydrox/Mg Hydrox/Simethicone (Aluminum/Magnesium Susp 30 Ml Udc) 30 ml PO Q4H PRN PRN Reason: GI Upset Stop: 04/18/21 14:08 Last Admin: 03/20/21 19:41 Dose: 30 ml Documented by: Bismuth Subsalicylate (Bismuth Subsalicylate Liqd 236 Ml) 15 ml PO PRN PRN PRN Reason: Loose Stool Stop: 04/18/21 14:08 Cyanocobalamin (Cyanocobalamin 500 Mcg Tablet (Vitamin B-12)) 1,000 mcg PO DAILY JACLYN Stop: 04/19/21 08:59 Last Admin: 04/07/21 08:19 Dose: 1,000 mcg Documented by: Famotidine (Famotidine 20 Mg Tab) 20 mg PO DAILY JACLYN Stop: 04/19/21 08:59 Last Admin: 04/07/21 08:20 Dose: 20 mg Documented by: Hydroxyzine HCl (Hydroxyzine Hcl 25 Mg Tab) 50 mg PO HSZ PRN PRN Reason: Insomnia Stop: 04/18/21 14:08 Last Admin: 03/27/21 20:50 Dose: 50 mg Documented by: Hydroxyzine HCl (Hydroxyzine Hcl 25 Mg Tab) 25 mg PO Q4H PRN PRN Reason: Anxiety Stop: 04/18/21 14:08 Last Admin: 03/30/21 09:33 Dose: 25 mg Documented by: Loratadine (Loratadine 10 Mg Tab) 10 mg PO DAILY JACLYN Stop: 04/19/21 08:59 Last Admin: 04/07/21 08:20 Dose: 10 mg Documented by: Lorazepam (Lorazepam 1 Mg Tab) 1 mg PO Q4H PRN PRN Reason: Anxiety/Agitation Stop: 04/29/21 09:35 Last Admin: 03/30/21 10:08 Dose: 1 mg Documented by: Lorazepam (Lorazepam 1 Mg Tab) 1 mg PO BIDM [facility] Stop: 04/29/21 17:44 Last Admin: 04/07/21 08:22 Dose: 1 mg Documented by: Magnesium Hydroxide (Magnesium Hydroxide Susp 30 Ml Udc) 30 ml PO DAILY PRN PRN Reason: Constipation Stop: 04/18/21 14:08 Olanzapine (Olanzapine 10 Mg/2.1 Ml Sdv) 5 mg IM Q6H PRN PRN Reason: Agitation Stop: 04/29/21 09:33 Last Admin: 03/30/21 09:40 Dose: 5 mg Documented by: Propranolol HCl (Propranolol Hcl 10 Mg Tab) 10 mg PO BID [facility] Stop: 04/22/21 17:49 Last Admin: 04/07/21 08:20 Dose: 10 mg Documented by: Sodium Chloride (Sodium Chloride 0.65% Na Soln 45 Ml ([place])) 1 - 2 sprays NA PRN PRN PRN Reason: Nasal Dryness/Congestion Stop: 04/18/21 14:08 Tamsulosin HCl (Tamsulosin Hcl 0.4 Mg Cap) 0.4 mg PO TODAY@1930 [facility] Stop: 04/27/21 19:29 Last Admin: 04/06/21 19:34 Dose: 0.4 mg Documented by: Thiamine HCl (Thiamine Hcl 100 Mg Tab) 100 mg PO QAM [facility] Stop: 04/19/21 08:59 Last Admin: 04/07/21 08:21 Dose: 100 mg Documented by: Mental Health & Subst Abuse Tx Psychiatrist Name of Psychiatrist: Patricia Gautam Psychiatrist's Date of Appointment with Psychiatrist: 04/14/21 Time of Appointment with Psychiatrist: 2:25 p.m. Psychiatric Appointment Comment: [address] [place] [address] Therapist Name of Therapist: . Therapist's Phone Number: . Therapy Appointment Comment: . [employer] Name of [employer]: [facility] - Sindhu/Maritza Phone Number for [employer]: [phone] Date of Appointment with [employer]: 04/13/21 Time of Appointment with [employer]: Maritza will stop in to see you Case Management Appointment Comment: Maritza will see you at [facility] on Monday for a check-in Post Discharge Appointments Primary Care Physician Name Of Family Doctor: CARITO Navarro PA-C Primary Care Date of Appointment with PCP: 04/16/21 Time of Appointment with PCP: 10:30 a.m. Provider Appointment Comment: [address] [facility], [address] [place] [address] Contact Information Discharge Discharge Address: [facility]: [facility] [address], [place] [address]
[2021-04-07] MEDS: hydrOXYzine HCl 25 MG TAB PO PRN (18:53)
[2021-04-07] MEDS: TAMSULOSIN HCL 0.4 MG CAP PO SCH (18:53)
[2021-04-08] MEDS: CYANOCOBALAMIN 500 MCG TABLET (VITAMIN B-12) PO SCH (08:16)
[2021-04-08] MEDS: FAMOTIDINE 20 MG TAB PO SCH (08:17)
[2021-04-08] MEDS: PROPRANOLOL HCL 10 MG TAB PO SCH ×2 (08:17→19:56)
[2021-04-08] MEDS: THIAMINE HCL 100 MG TAB PO SCH (08:17)
[2021-04-08] MEDS: LORATADINE 10 MG TAB PO SCH (08:17)
[2021-04-08] MEDS: LORazepam 1 MG TAB PO SCH ×2 (08:17→17:05)
[2021-04-08] MEDS: LORazepam 1 MG TAB PO PRN (13:24)
[2021-04-08] MEDS: TAMSULOSIN HCL 0.4 MG CAP PO SCH (19:56)
--- NOTE | 2021-04-08 20:06 | Psychiatric Progress Note ---
Date of Service April 08, 2021 Impression / Recommendations Shruthi Galeano is a 56 yo male with a history of bipolar disorder, primarily depression who has been unable to function without the structure of work and unable to care for self at [facility] resulting in multiple inpatient hospitalizations this year (fourth admission since October 2020). He was non adherent with medication and presented with a possible mixed episode of ronald versus agitated catatonia as he seems to often forget to take his lorazepam after discharge and then decompensates. Diagnostically he presents with very concrete thoughts, flat affect and has difficulty discussing his mood or recent challenges which can all be consistent with ASD but he denies history of difficulty with social communication nor restricted repetitive interests. Family collateral and records review does show history of social communication challenges and that tended to prefer being by himself. He received Invega Sustenna 234 mg IM on 03/09/21 and then second dose of 156 mg on 03/13/21. He will be due for his next dose of 78 mg on 04/09/21. No current symptoms of psychosis. 04/08/21: Steady improvement with some increased engagement but continues to have prominent negative symptoms which may be due to schizophrenia versus medication side effects versus ASD. Remains unable to care for himself independently outside the hospital and looking into personal mcfp options. Plan: spoke with Mauri yesterday evening and today discussed plan for Invega GRANICA tomorrow and risks, benefits, alternatives which Froylan consents to receiving again. (1) Bipolar 1 disorder, mixed: 04/08/21: continue current medications. Invega GARNICA 78mg tomorrow morning. 04/07/21: continue current medications. Discussing personal mcfp plans with him and helping him cope with anxiety that transitions bring for him. 04/06/21: appropriate with engagement, showing some brightening in terms of greeting staff and communicating a bit more, remains polite. Continue current medications and plan for Invega GARNICA on 04/09/21. 04/05/21: continues to have prominent negative symptoms, potentially some EPS from last Invega injection but no significant loom changer the last two weeks whi ch would expect Parkinsonism symptoms to improve as time to next dose gets closer. Continue current medications of ativan and Invega GARNICA. 04/04/21: Stable on ativan, continue current medications. Likely will continue with Invega GARNICA, due 04/09. Continues to demonstrate some difficulty with social boundaries/personal space. 04/03/21: Reviewed interim progress. Continue with current medications including: Invega GARNICA (next due: 04/09), ativan 1 mg BID and propranolol. Slight improvement in speech possibly due to lessening EPS from last GARNICA versus benefit from ativan. No signs of excessive sedation. 04/02/21: Personal mcfp necessary as step down given repeated hospitalizations. Monitor for sedation on Ativan. 03/31/21: brother Dr. Sales updated on patient's condition and retrial of Ativan. Reviewed that still deciding on Invega as best GARNICA option before next shot. 03/30/21: Ativan prn and start BID standing to catatonia, particularly as additional antipsychotics seem to cause EPS. 03/29/21: personal care referral as a diversion option as otherwise considering [facility]. 03/28/21--shift hs meds earlier. Remains unable to care for self outside of the hospital. It does not seem in patient's best interest to continue Invega given overall appearance. 03/27/21--interim care reviewed, plan is to taper and discontinue Seroquel due to potential for additive EPS on Invega sustenna. 03/26/21-Will be speaking with his brother Mauri this afternoon. Goal of discontinuing seroquel to avoid dual antipsychotics. Since he also required IM olanzapine today, per his request, for possible worsening internal stimuli, will get EKG when he's able to tolerate this to ensure QTc is normal. Will avoid cogentin for now as he's been showing brighter affect and it comes with p otential for additional cognitive blunting and increases the long-term risk of TD. 03/25/21-Discussed reducing seroquel from 100 mg to 50mg which Froylan consents to, in order to move toward antipsychotic monotherapy with Invega. Propranolol is helping with HTN and seems to be helping with akathisia. Could consider cogentin to see if this lessens EPS symptoms. MOCA score of 24/30, which is abnormal, with all points (except for 1 for no numbers on clock draw) lost on delayed recall. During discussion of his issues with memory he suggested that he gets distracted by internal thoughts and got distressed cut off our conversation at that point which raises suspicion for ongoing internal stimuli and/or thought blocking consistent with primary psychotic disorder which further supports use of Invega GARNICA. 03/24/21--Reviewed records from most recent hospitalization at [place] from 03/06 through 03/13. Interestingly they were seeing a very similar clinical picture with agitation leading to hospitalization and then no further acute psychiatric symptoms of ronald nor psychosis. They raised consideration for factitious disorder given that Froylan has been known to make statements of SI to seek care and that he struggles to know how to make social connections in a typical way so this could be a way of him meeting these needs. Was unable to do MOCA due to time constraints so will attempt tomorrow. Propranolol 10mg BID added last night due to concern for worsening akathasia and HTN. Will aim to taper Seroquel to discontinuation with goal of Invega monotherapy but will discuss this further with Froylan and his brother. Given history of medication non-adherence after discharge agree with Invega GARNICA as good long-term option. 03/23/21--Considerable time spent over the last three days reviewing and gathering collateral information from his outpatient provider and family. Awaiting records from most recent hospitalization where he apparently recieved GARNICA Invega. Therefore will not add any additional medications until this is clarified. He is spending more time on the unit but is not socializing and is often observed sitting or walking with staring at the wall with no purposeful activity. Will plan to do MOCA tomorrow. Will check in with Mauri again on Monday afternoon. 03/22/21--Continues to present as very concrete and with flat affect and poor eye contact. Gathering collateral with message left with his outpatient psychiatric and plan to contact his brother today. Likely will proceed with starting latuda with dinner for bipolar depression vs mixed episode after further collateral. Also starting daily schedule to encourage behavioral activation and less isolation to his room and to better assess his level of disorganization. 03/21/21: Lipid panel WNL and reassuring in setting of Seroquel use. Diagnostic picture remains unclear, awaiting a few specific titers from recent CSF but otherwise medical workup has been unremarkable. Will attempt further collateral from patient's brother and outpatient psychiatrist tomorrow. Will continue with seroquel 100 mg qhs. 03/20/21: Increase seroquel to 100mg qhs which patient consented to. Provided with screening questionnaires for OCD (Y-BOCS), BPD (mood disorder questionnaire), depression (PHQ-9) and anxiety (JAREK-7). He twice threw away most questionnaires but did fill out the Y-BOCS which noted some obsessions but few c ompulsions. 03/19/21: The patient was admitted to the [facility] ([facility] inpatient mental health unit) on q15 min checks (behavioral with suicide precautions) for safety. The patient will participate in group, recreational, and milieu therapies and will be offered additional individual and family sessions as clinically appropriate. Continue Seroquel this hs. Consider Latuda trial. Will need to dis cuss options for longer term hospitalization with family and treatment team. MNPR due to recent aggression. Inventory Assets Strengths: intelligent, has outpatient providers and family involvement Needs: supportive housing, extended hospitalization Risk Factors Assessment Male: Yes : Yes Do You Have Access To A Gun?: No Mental Health Diagnoses: Yes Substance Use Disorders: No Previous Attempt: Yes Previous Psychiatric Hospitalization: Yes Protective Factors Assessment Supportive Family: Yes Interval History Identifying Information 56 yo man with history of renal cancer, sleep disorders, depression, and possible BPAD who was admitted following an episode of [id number]-[id number] aggression toward a family member and difficulty attending to his basic needs. Multiple psychiatric hospitalizations over the course of last 6 months, failed placement with all available family options with escalation in agitated behavior prior to this admission necessitating medical admission for intubation. Chief Complaint "I'm pretty good". Review of Systems Sleep Information Total Hours of Sleep: 10 Sleep Comments: pt appeared to sleep 1.5 hrs during evening shift. pt on q-15 minute checks Meal Information Percent Meal Consumed - Breakfast: 100 Percent Meal Consumed - Lunch: 100 Percent Meal Consumed - Dinner: 100 Nutrition Comment: per meal record Subjective Subjective Patient was seen & assessed and interval progress reviewed with treatment team nursing and social work. He reports some anxiety today in context of the transition to personal care. He identifies that changes make him nervous but he's reaching out to staff for support. No medication side effects. Finds ativan helpful for anxiety. Agrees with plan for Invega dose tomorrow. Physical Exam Psychiatric Orientation: alert and oriented x 3 Apperance: appropriately dressed and appropriately groomed Eye Contact: + fair eye contact Motor Behavior: steady gait and station and no abnormal motor movements; n akathisia and n tremor Speech: normal rate/rhythm/volume of speech Affect: + flat affect Mood: + anxious mood; no depressed mood Thought Process: + concrete thought process Thought Content: reality based without delusions Suicidal Thoughts: denies suicidal thoughts Homicidal Thoughts: denies homicidal thoughts Hallucinations: no auditory hallucinations and no visual hallucinations Cognition: remote memory grossly intact, attention grossly intact and language grossly intact; + recent memory not intact Estimated Intelligence: consistent with education level Insight: + fair insight Judgement: + fair judgement Vital Signs (Past 24 Hours) Last Vital Signs Temp 37.0 C 04/08/21 08:14 Pulse 54 L 04/08/21 06:57 Resp 18 04/08/21 06:57 BP 116/72 04/08/21 19:59 Pulse Ox 99 04/08/21 06:57 Results & Data ([facility]) Current Inpatient Medications Current Inpatient Medications: Current Inpatient Medications Acetaminophen (Acetaminophen 325 Mg Tab) 650 mg PO Q4H PRN PRN Reason: Headache or Minor Fever Stop: 04/18/21 14:08 Al Hydrox/Mg Hydrox/Simethicone (Aluminum/Magnesium Susp 30 Ml Udc) 30 ml PO Q4H PRN PRN Reason: GI Upset Stop: 04/18/21 14:08 Last Admin: 03/20/21 19:41 Dose: 30 ml Documented by: Bismuth Subsalicylate (Bismuth Subsalicylate Liqd 236 Ml) 15 ml PO PRN PRN PRN Reason: Loose Stool Stop: 04/18/21 14:08 Cyanocobalamin (Cyanocobalamin 500 Mcg Tablet (Vitamin B-12)) 1,000 mcg PO DAILY JACLYN Stop: 04/19/21 08:59 Last Admin: 04/08/21 08:16 Dose: 1,000 mcg Documented by: Famotidine (Famotidine 20 Mg Tab) 20 mg PO DAILY JACLYN Stop: 04/19/21 08:59 Last Admin: 04/08/21 08:17 Dose: 20 mg Documented by: Hydroxyzine HCl (Hydroxyzine Hcl 25 Mg Tab) 50 mg PO HSZ PRN PRN Reason: Insomnia Stop: 04/18/21 14:08 Last Admin: 03/27/21 20:50 Dose: 50 mg Documented by: Hydroxyzine HCl (Hydroxyzine Hcl 25 Mg Tab) 25 mg PO Q4H PRN PRN Reason: Anxiety Stop: 04/18/21 14:08 Last Admin: 04/07/21 18:53 Dose: 25 mg Documented by: Loratadine (Loratadine 10 Mg Tab) 10 mg PO DAILY [facility] Stop: 04/19/21 08:59 Last Admin: 04/08/21 08:17 Dose: 10 mg Documented by: Lorazepam (Lorazepam 1 Mg Tab) 1 mg PO Q4H PRN PRN Reason: Anxiety/Agitation Stop: 04/29/21 09:35 Last Admin: 04/08/21 13:24 Dose: 1 mg Documented by: Lorazepam (Lorazepam 1 Mg Tab) 1 mg PO BIDM [facility] Stop: 04/29/21 17:44 Last Admin: 04/08/21 17:05 Dose: 1 mg Documented by: Magnesium Hydroxide (Magnesium Hydroxide Susp 30 Ml Udc) 30 ml PO DAILY PRN PRN Reason: Constipation Stop: 04/18/21 14:08 Olanzapine (Olanzapine 10 Mg/2.1 Ml Sdv) 5 mg IM Q6H PRN PRN Reason: Agitation Stop: 04/29/21 09:33 Last Admin: 03/30/21 09:40 Dose: 5 mg Documented by: Paliperidone Palmitate (Paliperidone Palmitate 117 Mg/0.75 Ml Syr) 78 mg IM ONCE ONE Stop: 04/09/21 10:01 Propranolol HCl (Propranolol Hcl 10 Mg Tab) 10 mg PO BID [facility] Stop: 04/22/21 17:49 Last Admin: 04/08/21 19:56 Dose: 10 mg Documented by: Sodium Chloride (Sodium Chloride 0.65% Na Soln 45 Ml ([place])) 1 - 2 sprays NA PRN PRN PRN Reason: Nasal Dryness/Congestion Stop: 04/18/21 14:08 Tamsulosin HCl (Tamsulosin Hcl 0.4 Mg Cap) 0.4 mg PO TODAY@1930 [facility] Stop: 04/27/21 19:29 Last Admin: 04/08/21 19:56 Dose: 0.4 mg Documented by: Thiamine HCl (Thiamine Hcl 100 Mg Tab) 100 mg PO QAM [facility] Stop: 04/19/21 08:59 Last Admin: 04/08/21 08:17 Dose: 100 mg Documented by: Mental Health & Subst Abuse Tx Psychiatrist Name of Psychiatrist: Patricia Gautam Psychiatrist's Date of Appointment with Psychiatrist: 04/14/21 Time of Appointment with Psychiatrist: 2:25 p.m. Psychiatric Appointment Comment: [id number] [place] [address] Therapist Name of Therapist: . Therapist's Phone Number: . Therapy Appointment Comment: . Sewer Digger Name of Sewer Digger: [facility] S[facility]hu/Maritza Phone Number for Sewer Digger: [phone] Date of Appointment with Sewer Digger: 04/13/21 Time of Appointment with Sewer Digger: Maritza will stop in to see you Case Management Appointment Comment: Maritza will see you at [facility] on Monday for a check-in Post Discharge Appointments Primary Care Physician Name Of Family Doctor: CARITO Navarro PA-C Primary Care Date of Appointment with PCP: 04/16/21 Time of Appointment with PCP: 10:30 a.m. Provider Appointment Comment: [address] [facility], [address], [place] Contact Information Discharge Discharge Address: [facility]: [facility] [address], [place] [address]
[2021-04-09] MEDS: LORATADINE 10 MG TAB PO SCH (08:56)
[2021-04-09] MEDS: LORazepam 1 MG TAB PO SCH ×2 (08:56→16:17)
[2021-04-09] MEDS: CYANOCOBALAMIN 500 MCG TABLET (VITAMIN B-12) PO SCH (08:56)
[2021-04-09] MEDS: FAMOTIDINE 20 MG TAB PO SCH (08:56)
[2021-04-09] MEDS: PROPRANOLOL HCL 10 MG TAB PO SCH ×2 (08:57→19:20)
[2021-04-09] MEDS: THIAMINE HCL 100 MG TAB PO SCH (08:57)
[2021-04-09] MEDS ORDERED: PALIPERIDONE PALMITATE 156 MG/ML SYR IM ONE (11:00)
--- NOTE | 2021-04-09 16:13 | Psychiatric Progress Note ---
Date of Service April 09, 2021 Impression / Recommendations Shruthi Galeano is a 56 yo male with a history of bipolar disorder, primarily depression who has been unable to function without the structure of work and unable to care for self at [facility] resulting in multiple inpatient hospitalizations this year (fourth admission since October 2020). He was non adherent with medication and presented with a possible mixed episode of ronald versus agitated catatonia as he seems to often forget to take his lorazepam after discharge and then decompensates. Diagnostically seems to be most consistent with schizoaffective disorder given prominent negative symptoms, periods of acute distress consistent with responding to internal stimuli, periods of depression and likely ronald and strong family history of schizophrenia. Seems to have presented with more a schizoid personality disorder presentation earlier in his life with later onset symptoms of psychosis and agitation. Also demonstrated symptoms of agitated catatonia when benzodiazepines were discontinued during hospitalization which was similar to what tended to occur after previous discharges when he would stop his medications. Given history of non-adherence with medications GARNICA options and structure of personal senior care is deemed to be very important for success in a less restrictive setting. He received Invega Sustenna 234 mg IM on 03/09/21, second dose of 156 mg on 03/13/21 and third dose of 78 mg on 04/09/21. No current symptoms of psychosis. 04/09/21: Steady improvement with some increased engagement but continues to have prominent negative symptoms. Remains unable to care for himself independently outside the hospital plan for personal senior care. Plan: spoke with Mauri today, reviewed Froylan's reaction to GARNICA Invega, reviewed paperwork for his disability application, tried to reach his outpatient psychiatry practice to update on GARNICA date and plan for him to recieve this through [facility] after discharge (1) Schizoaffective disorder, bipolar type, with catatonia: 04/09/21; continue current medications. Received Invega GARNICA 78 mg. Will be due for next injection on 05/07/21. 04/08/21: continue current medications. Invega GARNICA 78mg tomorrow morning. 04/07/21: continue current medications. Discussing personal senior care plans with him and helping him cope with anxiety that transitions bring for him. 04/06/21: appropriate with engagement, showing some brightening in terms of greeting staff and communicating a bit more, remains polite. Continue current medications and plan for Invega GARNICA on 04/09/21. 04/05/21: continues to have prominent negative symptoms, potentially some EPS from last Invega injection but no significant knife changer the last two weeks which would expect Parkinsonism symptoms to improve as time to next dose gets c loser. Continue current medications of ativan and Invega GARNICA. 04/04/21: Stable on ativan, continue current medications. Likely will continue with Invega GARNICA, due 04/09. Continues to demonstrate some difficulty with social boundaries/personal space. 04/03/21: Reviewed interim progress. Continue with current medications including: Invega GARNICA (next due: 04/09), ativan 1 mg BID and propranolol. Slight improvement in speech possibly due to lessening EPS from last GARNICA versus benefit from ativan. No signs of excessive sedation. 04/02/21: Personal senior care necessary as step down given repeated h ospitalizations. Monitor for sedation on Ativan. 03/31/21: brother Dr. Sales updated on patient's condition and retrial of Ativan. Reviewed that still deciding on Invega as best GARNICA option before next shot. 03/30/21: Ativan prn and start BID standing to catatonia, particularly as additional antipsychotics seem to cause EPS. 03/29/21: personal care referral as a diversion option as otherwise considering [facility]. 03/28/21--shift hs meds earlier. Remains unable to care for self outside of the hospital. It does not seem in patient's best interest to continue Invega given overall appearance. 03/27/21--interim care reviewed, plan is to taper and discontinue Seroquel due to potential for additive EPS on Invega sustenna. 03/26/21-Will be speaking with his brother Mauri this afternoon. Goal of discontinuing seroquel to avoid dual antipsychotics. Since he also required IM olanzapine today, per his request, for possible worsening internal stimuli, will get EKG when he's able to tolerate this to ensure QTc is normal. Will avoid cogentin for now as he's been showing brighter affect and it comes with potential for additional cognitive blunting and increases the long-term risk of TD. 03/25/21-Discussed reducing seroquel from 100 mg to 50mg which Froylan consents to, in order to move toward antipsychotic monotherapy with Invega. Propranolol is helping with HTN and seems to be helping with akathisia. Could consider cogentin to see if this lessens EPS symptoms. MOCA score of 24/30, which is abnormal, with all points (except for 1 for no numbers on clock draw) lost on delayed recall. During discussion of his issues with memory he suggested that he gets distracted by internal thoughts and got distressed cut off our conversation at that point which raises suspicion for ongoing internal stimuli and/or thought blocking consistent with primary psychotic disorder which further supports use of Invega GARNICA. 03/24/21--Reviewed records from most recent hospitalization at [facility] from 03/06 through 03/13. Interestingly they were seeing a very similar clinical picture with agitation leading to hospitalization and then no further acute psychiatric symptoms of ronald nor psychosis. They raised consideration for factitious disorder given that Froylan has been known to make statements of SI to seek care and that he struggles to know how to make social connections in a typical way so this could be a way of him meeting these needs. Was unable to do MOCA due to time constraints so will attempt tomorrow. Propranolol 10mg BID added last night due to concern for worsening akathasia and HTN. Will aim to taper Seroquel to discontinuation with goal of Invega monotherapy but will discuss this further with Froylan and his brother. Given history of medication non-adherence after disch arge agree with Invega GARNICA as good long-term option. 03/23/21--Considerable time spent over the last three days reviewing and gathering collateral information from his outpatient provider and family. Awaiting records from most recent hospitalization where he apparently recieved GARNICA Invega. Therefore will not add any additional medications until this is clarified. He is spending more time on the unit but is not socializing and is often observed sitting or walking with staring at the wall with no purposeful activity. Will plan to do MOCA tomorrow. Will check in with Mauri again on Monday afternoon. 03/22/21--Continues to present as very concrete and with flat affect and poor eye contact. Gathering collateral with message left with his outpatient psychiatric and plan to contact his brother today. Likely will proceed with starting latuda with dinner for bipolar depression vs mixed episode after further collateral. Also starting daily schedule to encourage behavioral activation and less isolation to his room and to better assess his level of disorganization. 03/21/21: Lipid panel WNL and reassuring in setting of Seroquel use. Diagnostic picture remains unclear, awaiting a few specific titers from recent CSF but otherwise medical workup has been unremarkable. Will attempt further collateral from patient's brother and outpatient psychiatrist tomorrow. Will continue with seroquel 100 mg qhs. 03/20/21: Increase seroquel to 100mg qhs which patient consented to. Provided with screening questionnaires for OCD (Y-BOCS), BPD (mood disorder questionnaire), depression (PHQ-9) and anxiety (JAREK-7). He twice threw away most questionnaires but did fill out the Y-BOCS which noted some obsessions but few compulsions. 03/19/21: The patient was admitted to the [facility] ([facility]) on q15 min checks (behavioral with suicide precautions) for safety. The patient will participate in group, recreational, and milieu therapies and will be offered additional individual and family sessions as clinically appropriate. Continue Seroquel this hs. Consider Latuda trial. Will need to discuss options for longer term hospitalization with family and treatment team. MNPR due to recent aggression. Inventory Assets Strengths: intelligent, has outpatient providers and family involvement Needs: supportive housing, extended hospitalization Risk Factors Assessment Male: Yes : Yes Do You Have Access To A Gun?: No Mental Health Diagnoses: Yes Substance Use Disorders: No Previous Attempt: Yes Previous Psychiatric Hospitalization: Yes Protective Factors Assessment Supportive Family: Yes Interval History Identifying Information 56 yo man with history of renal cancer, sleep disorders, depression, and possible BPAD who was admitted following an episode of [id number] aggression toward a family member and difficulty attending to his basic needs. Multiple psychiatric hospitalizations over the course of last 6 months, failed placement with all available family options with escalation in agitated behavior prior to this admission necessitating medical admission for intubation. Chief Complaint "I'm pretty good". Review of Systems Sleep Information Total Hours of Sleep: 5.5 Sleep Comments: pt appeared to sleep 1.5 hrs during evening shift. pt on q-15 minute checks Meal Information Percent Meal Consumed - Breakfast: 100 Percent Meal Consumed - Lunch: 100 Percent Meal Consumed - Dinner: 100 Nutrition Comment: per meal record Subjective Subjective Patient was seen & assessed and interval progress reviewed with treatment team nursing and social work. Froylan continues to feel nervous about the upcoming transition to the personal senior care but remains in agreement with this. Agrees to Invega GARNICA today and had no reactions or problems after the injection. Has us ed a few prn doses of ativan in the last few days due to anxiety about the transition. No side effects from medication. Physical Exam Psychiatric Orientation: alert and oriented x 3 Apperance: appropriately dressed and appropriately groomed Eye Contact: good eye contact Motor Behavior: steady gait and station and no abnormal motor movements; n akathisia and n tremor Speech: normal rate/rhythm/volume of speech Affect: + flat affect Mood: + anxious mood Thought Process: + concrete thought process Thought Content: reality based without delusions Suicidal Thoughts: denies suicidal thoughts Homicidal Thoughts: denies homicidal thoughts Hallucinations: no auditory hallucinations and no visual hallucinations Cognition: remote memory grossly intact, attention grossly intact and language grossly intact; + recent memory not intact Estimated Intelligence: consistent with education level Insight: + limited insight Judgement: + fair judgement Vital Signs (Past 24 Hours) Last Vital Signs Temp 36.6 C 04/09/21 06:00 Pulse 54 L 04/09/21 06:44 Resp 16 04/09/21 06:00 BP 110/70 04/09/21 06:44 Pulse Ox 99 04/08/21 06:57 Results & Data (U) Current Inpatient Medications Current Inpatient Medications: Current Inpatient Medications Acetaminophen (Acetaminophen 325 Mg Tab) 650 mg PO Q4H PRN PRN Reason: Headache or Minor Fever Stop: 04/18/21 14:08 Al Hydrox/Mg Hydrox/Simethicone (Aluminum/Magnesium Susp 30 Ml Udc) 30 ml PO Q4H PRN PRN Reason: GI Upset Stop: 04/18/21 14:08 Last Admin: 03/20/21 19:41 Dose: 30 ml Documented by: Bismuth Subsalicylate (Bismuth Subsalicylate Liqd 236 Ml) 15 ml PO PRN PRN PRN Reason: Loose Stool Stop: 04/18/21 14:08 Cyanocobalamin (Cyanocobalamin 500 Mcg Tablet (Vitamin B-12)) 1,000 mcg PO DAILY JACLYN Stop: 04/19/21 08:59 Last Admin: 04/09/21 08:56 Dose: 1,000 mcg Documented by: Famotidine (Famotidine 20 Mg Tab) 20 mg PO DAILY JACLYN Stop: 04/19/21 08:59 Last Admin: 04/09/21 08:56 Dose: 20 mg Documented by: Hydroxyzine HCl (Hydroxyzine Hcl 25 Mg Tab) 50 mg PO HSZ PRN PRN Reason: Insomnia Stop: 04/18/21 14:08 Last Admin: 03/27/21 20:50 Dose: 50 mg Documented by: Hydroxyzine HCl (Hydroxyzine Hcl 25 Mg Tab) 25 mg PO Q4H PRN PRN Reason: Anxiety Stop: 04/18/21 14:08 Last Admin: 04/07/21 18:53 Dose: 25 mg Documented by: Loratadine (Loratadine 10 Mg Tab) 10 mg PO DAILY JACLYN Stop: 04/19/21 08:59 Last Admin: 04/09/21 08:56 Dose: 10 mg Documented by: Lorazepam (Lorazepam 1 Mg Tab) 1 mg PO Q4H PRN PRN Reason: Anxiety/Agitation Stop: 04/29/21 09:35 Last Admin: 04/08/21 13:24 Dose: 1 mg Documented by: Lorazepam (Lorazepam 1 Mg Tab) 1 mg PO BIDM [facility] Stop: 04/29/21 17:44 Last Admin: 04/09/21 08:56 Dose: 1 mg Documented by: Magnesium Hydroxide (Magnesium Hydroxide Susp 30 Ml Udc) 30 ml PO DAILY PRN PRN Reason: Constipation Stop: 04/18/21 14:08 Olanzapine (Olanzapine 10 Mg/2.1 Ml Sdv) 5 mg IM Q6H PRN PRN Reason: Agitation Stop: 04/29/21 09:33 Last Admin: 03/30/21 09:40 Dose: 5 mg Documented by: Propranolol HCl (Propranolol Hcl 10 Mg Tab) 10 mg PO BID [facility] Stop: 04/22/21 17:49 Last Admin: 04/09/21 08:57 Dose: 10 mg Documented by: Sodium Chloride (Sodium Chloride 0.65% Na Soln 45 Ml (Sanders)) 1 - 2 sprays NA PRN PRN PRN Reason: Nasal Dryness/Congestion Stop: 04/18/21 14:08 Tamsulosin HCl (Tamsulosin Hcl 0.4 Mg Cap) 0.4 mg PO TODAY@1930 [facility] Stop: 04/27/21 19:29 Last Admin: 04/08/21 19:56 Dose: 0.4 mg Documented by: Thiamine HCl (Thiamine Hcl 100 Mg Tab) 100 mg PO QAM JACLYN Stop: 04/19/21 08:59 Last Admin: 04/09/21 08:57 Dose: 100 mg Documented by: Mental Health & Subst Abuse Tx Psychiatrist Name of Psychiatrist: Patricia Gautam Psychiatrist's Date of Appointment with Psychiatrist: 04/14/21 Time of Appointment with Psychiatrist: 2:25 p.m. Psychiatric Appointment Comment: [address] [place] [address] Therapist Name of Therapist: . Therapist's Phone Number: . Therapy Appointment Comment: . Electro Optics Engineer Name of Electro Optics Engineer: [employer] - Sindhu/Maritza Phone Number for Electro Optics Engineer: [phone] Date of Appointment with Electro Optics Engineer: 04/13/21 Time of Appointment with Electro Optics Engineer: Maritza will stop in to see you Case Management Appointment Comment: Maritza will see you at [facility] on Monday for a check-in Post Discharge Appointments Primary Care Physician Name Of Family Doctor: CARITO Navarro PA-C Primary Care Date of Appointment with PCP: 04/16/21 Time of Appointment with PCP: 10:30 a.m. Provider Appointment Comment: [address], [address], [place] Contact Information Discharge Discharge Address: [facility]: [address] [place], [place] [address] , [place] [address]
[2021-04-09] MEDS: TAMSULOSIN HCL 0.4 MG CAP PO SCH (19:20)
[2021-04-10] MEDS: FAMOTIDINE 20 MG TAB PO SCH (08:13)
[2021-04-10] MEDS: LORATADINE 10 MG TAB PO SCH (08:13)
[2021-04-10] MEDS: CYANOCOBALAMIN 500 MCG TABLET (VITAMIN B-12) PO SCH (08:13)
[2021-04-10] MEDS: LORazepam 1 MG TAB PO SCH ×2 (08:14→17:11)
[2021-04-10] MEDS: PROPRANOLOL HCL 10 MG TAB PO SCH ×2 (08:14→19:07)
[2021-04-10] MEDS: THIAMINE HCL 100 MG TAB PO SCH (08:14)
--- NOTE | 2021-04-10 11:50 | Psychiatric Progress Note ---
Date of Service April 10, 2021 Impression / Recommendations Shruthi Galeano is a 56 yo male with a history of bipolar disorder, primarily depression who has been unable to function without the structure of work and unable to care for self at [facility] resulting in multiple inpatient hospitalizations this year (fourth admission since October 2020). He was non adherent with medication and presented with a possible mixed episode of ronald versus agitated catatonia as he seems to often forget to take his lorazepam after discharge and then decompensates. Diagnostically seems to be most consistent with schizoaffective disorder given prominent negative symptoms, periods of acute distress consistent with responding to internal stimuli, periods of depression and likely ronald and strong family history of schizophrenia. Seems to have presented with more a schizoid personality disorder presentation earlier in his life with later onset symptoms of psychosis and agitation. Also demonstrated symptoms of agitated catatonia when benzodiazepines were discontinued during hospitalization which was similar to what tended to occur after previous discharges when he would stop his medications. Given history of non-adherence with medications GARNICA options and structure of personal residential is deemed to be very important for success in a less restrictive setting. He received Invega Sustenna 234 mg IM on 03/09/21, second dose of 156 mg on 03/13/21 and third dose of 78 mg on 04/09/21. No current symptoms of psychosis. 04/10/21: Reviewed care by Dr. Jamison in italics. Improving. Tolerating Invega lower dose. Plan: continue current meds and treatment plan. (1) Schizoaffective disorder, bipolar type, with catatonia: Inventory Assets Strengths: intelligent, has outpatient providers and family involvement Needs: supportive housing, extended hospitalization Risk Factors Assessment Male: Yes : Yes Do You Have Access To A Gun?: No Mental Health Diagnoses: Yes Substance Use Disorders: No Previous Attempt: Yes Previous Psychiatric Hospitalization: Yes Protective Factors Assessment Supportive Family: Yes Interval History Identifying Information 56 yo man with history of renal cancer, sleep disorders, depression, and possible BPAD who was admitted following an episode of [id number] aggression toward a family member and difficulty attending to his basic needs. Multiple psychiatric hospitalizations over the course of last 6 months, failed placement with all available family options with escalation in agitated behavior prior to this admission necessitating medical admission for intubation. Chief Complaint "I'm a little anxious but lets leave it". Review of Systems Sleep Information Total Hours of Sleep: 7 Sleep Comments: pt appeared to sleep 1.5 hrs during evening shift. pt on q-15 minute checks Meal Information Percent Meal Consumed - Breakfast: 100 Percent Meal Consumed - Lunch: 100 Percent Meal Consumed - Dinner: 100 Nutrition Comment: per meal record Subjective Subjective Patient was seen & assessed and interval progress reviewed with nursing and social work. Patient's anxiety is increase in anticipation of transition to personal residential. Patient is requesting his Ativan early at times in pm. Physical Exam Psychiatric alert, superficially cooperative, thoughts concrete, affect contstricted, denies SI/HI/martino, no delusions expressed. Vital Signs (Past 24 Hours) Last Vital Signs Temp 36.5 C 04/10/21 06:40 Pulse 72 04/10/21 06:41 Resp 16 04/10/21 06:40 BP 115/71 04/10/21 06:41 Pulse Ox 99 04/08/21 06:57 Results & Data ([facility]) Current Inpatient Medications Current Inpatient Medications: Current Inpatient Medications Acetaminophen (Acetaminophen 325 Mg Tab) 650 mg PO Q4H PRN PRN Reason: Headache or Minor Fever Stop: 04/18/21 14:08 Al Hydrox/Mg Hydrox/Simethicone (Aluminum/Magnesium Susp 30 Ml Udc) 30 ml PO Q4H PRN PRN Reason: GI Upset Stop: 04/18/21 14:08 Last Admin: 03/20/21 19:41 Dose: 30 ml Documented by: Bismuth Subsalicylate (Bismuth Subsalicylate Liqd 236 Ml) 15 ml PO PRN PRN PRN Reason: Loose Stool Stop: 04/18/21 14:08 Cyanocobalamin (Cyanocobalamin 500 Mcg Tablet (Vitamin B-12)) 1,000 mcg PO DAILY JACLYN Stop: 04/19/21 08:59 Last Admin: 04/10/21 08:13 Dose: 1,000 mcg Documented by: Famotidine (Famotidine 20 Mg Tab) 20 mg PO DAILY JACLYN Stop: 04/19/21 08:59 Last Admin: 04/10/21 08:13 Dose: 20 mg Documented by: Hydroxyzine HCl (Hydroxyzine Hcl 25 Mg Tab) 50 mg PO HSZ PRN PRN Reason: Insomnia Stop: 04/18/21 14:08 Last Admin: 03/27/21 20:50 Dose: 50 mg Documented by: Hydroxyzine HCl (Hydroxyzine Hcl 25 Mg Tab) 25 mg PO Q4H PRN PRN Reason: Anxiety Stop: 04/18/21 14:08 Last Admin: 04/07/21 18:53 Dose: 25 mg Documented by: Loratadine (Loratadine 10 Mg Tab) 10 mg PO DAILY JACLYN Stop: 04/19/21 08:59 Last Admin: 04/10/21 08:13 Dose: 10 mg Documented by: Lorazepam (Lorazepam 1 Mg Tab) 1 mg PO Q4H PRN PRN Reason: Anxiety/Agitation Stop: 04/29/21 09:35 Last Admin: 04/08/21 13:24 Dose: 1 mg Documented by: Lorazepam (Lorazepam 1 Mg Tab) 1 mg PO BIDM [facility] Stop: 04/29/21 17:44 Last Admin: 04/10/21 08:14 Dose: 1 mg Documented by: Magnesium Hydroxide (Magnesium Hydroxide Susp 30 Ml Udc) 30 ml PO DAILY PRN PRN Reason: Constipation Stop: 04/18/21 14:08 Olanzapine (Olanzapine 10 Mg/2.1 Ml Sdv) 5 mg IM Q6H PRN PRN Reason: Agitation Stop: 04/29/21 09:33 Last Admin: 03/30/21 09:40 Dose: 5 mg Documented by: Propranolol HCl (Propranolol Hcl 10 Mg Tab) 10 mg PO BID [facility] Stop: 04/22/21 17:49 Last Admin: 04/10/21 08:14 Dose: 10 mg Documented by: Sodium Chloride (Sodium Chloride 0.65% Na Soln 45 Ml ([place]ate)) 1 - 2 sprays NA PRN PRN PRN Reason: Nasal Dryness/Congestion Stop: 04/18/21 14:08 Tamsulosin HCl (Tamsulosin Hcl 0.4 Mg Cap) 0.4 mg PO TODAY@1930 [facility] Stop: 04/27/21 19:29 Last Admin: 04/09/21 19:20 Dose: 0.4 mg Documented by: Thiamine HCl (Thiamine Hcl 100 Mg Tab) 100 mg PO QAM [facility] Stop: 04/19/21 08:59 Last Admin: 04/10/21 08:14 Dose: 100 mg Documented by: Mental Health & Subst Abuse Tx Psychiatrist Name of Psychiatrist: Patricia aGutam Psychiatrist's Date of Appointment with Psychiatrist: 04/14/21 Time of Appointment with Psychiatrist: 2:25 p.m. Psychiatric Appointment Comment: [address] [place] [address] Therapist Name of Therapist: . Therapist's Phone Number: . Therapy Appointment Comment: . Graphic Design Teacher Name of Graphic Design Teacher: [employer] - Sindhu/Maritza Phone Number for Graphic Design Teacher: [phone] Date of Appointment with Graphic Design Teacher: 04/13/21 Time of Appointment with Graphic Design Teacher: Maritza will stop in to see you Case Management Appointment Comment: Maritza will see you at [facility] on Monday afternoon for a check-in Post Discharge Appointments Primary Care Physician Name Of Family Doctor: CARITO Navarro PA-C Primary Care Date of Appointment with PCP: 04/16/21 Time of Appointment with PCP: 10:30 a.m. Provider Appointment Comment: [address] [facility] [address], [address], [place] Contact Information Discharge Discharge Address: [facility]: [facility] [address], [place] [address]
[2021-04-10] MEDS: TAMSULOSIN HCL 0.4 MG CAP PO SCH (19:07)
[2021-04-11] MEDS: FAMOTIDINE 20 MG TAB PO SCH (07:36)
[2021-04-11] MEDS: LORATADINE 10 MG TAB PO SCH (07:36)
[2021-04-11] MEDS: CYANOCOBALAMIN 500 MCG TABLET (VITAMIN B-12) PO SCH (07:36)
[2021-04-11] MEDS: LORazepam 1 MG TAB PO SCH ×2 (07:37→17:01)
[2021-04-11] MEDS: THIAMINE HCL 100 MG TAB PO SCH (07:37)
[2021-04-11] MEDS: PROPRANOLOL HCL 10 MG TAB PO SCH ×2 (07:37→19:27)
--- NOTE | 2021-04-11 12:07 | Psychiatric Progress Note ---
Date of Service April 11, 2021 Impression / Recommendations Shruthi Galeano is a 56 yo male with a history of bipolar disorder, primarily depression who has been unable to function without the structure of work and unable to care for self at [facility] resulting in multiple inpatient hospitalizations this year (fourth admission since October 2020). He was non adherent with medication and presented with a possible mixed episode of ronald versus agitated catatonia as he seems to often forget to take his lorazepam after discharge and then decompensates. Diagnostically seems to be most consistent with schizoaffective disorder given prominent negative symptoms, periods of acute distress consistent with responding to internal stimuli, periods of depression and likely ronald and strong family history of schizophrenia. Seems to have presented with more a schizoid personality disorder presentation earlier in his life with later onset symptoms of psychosis and agitation. Also demonstrated symptoms of agitated catatonia when benzodiazepines were discontinued during hospitalization which was similar to what tended to occur after previous discharges when he would stop his medications. Given history of non-adherence with medications GARNICA options and structure of personal penitentiary is deemed to be very important for success in a less restrictive setting. He received Invega Sustenna 234 mg IM on 03/09/21, second dose of 156 mg on 03/13/21 and third dose of 78 mg on 04/09/21. No current symptoms of psychosis. 04/11/21: Improving. Tolerating Invega lower dose. Plan: continue current meds and treatment plan. Inventory Assets Strengths: intelligent, has outpatient providers and family involvement Needs: supportive housing, extended hospitalization Risk Factors Assessment Male: Yes : Yes Do You Have Access To A Gun?: No Mental Health Diagnoses: Yes Substance Use Disorders: No Previous Attempt: Yes Previous Psychiatric Hospitalization: Yes Protective Factors Assessment Supportive Family: Yes Interval History Identifying Information 56 yo man with history of renal cancer, sleep disorders, depression, and possible BPAD who was admitted following an episode of [id number] aggression toward a family member and difficulty attending to his basic needs. Multiple psychiatric hospitalizations over the course of last 6 months, failed placement with all available family options with escalation in agitated behavior prior to this admission necessitating medical admission for intubation. Chief Complaint "I'm good". Review of Systems Sleep Information Total Hours of Sleep: 7.5 Sleep Comments: pt appeared to sleep 1.5 hrs during evening shift. pt on q-15 minute checks Meal Information Percent Meal Consumed - Breakfast: 100 Percent Meal Consumed - Lunch: 100 Percent Meal Consumed - Dinner: 100 Nutrition Comment: per meal record Subjective Subjective Patient was seen & assessed and interval progress reviewed with nursing and social work. Able to engage with staff in longer conversations. No panic in anticipation of discharge. He is accepting of personal penitentiary placement. Physical Exam Psychiatric Orientation: alert Apperance: appropriately dressed and appropriately groomed Eye Contact: + fair eye contact Motor Behavior: no abnormal motor movements Speech: normal rate/rhythm/volume of speech Affect: + constricted affect Mood: + anxious mood Thought Process: + concrete thought process Thought Content: reality based without delusions Suicidal Thoughts: denies suicidal thoughts Homicidal Thoughts: denies homicidal thoughts Hallucinations: no auditory hallucinations and no visual hallucinations Cognition: attention grossly intact and language grossly intact Estimated Intelligence: consistent with education level Insight: + limited insight Judgement: + limited judgement Vital Signs (Past 24 Hours) Last Vital Signs Temp 36.6 C 04/11/21 06:46 Pulse 65 04/11/21 06:46 Resp 18 04/11/21 06:46 BP 130/77 04/11/21 06:46 Pulse Ox 99 04/08/21 06:57 Results & Data ([facility]) Current Inpatient Medications Current Inpatient Medications: Current Inpatient Medications Acetaminophen (Acetaminophen 325 Mg Tab) 650 mg PO Q4H PRN PRN Reason: Headache or Minor Fever Stop: 04/18/21 14:08 Al Hydrox/Mg Hydrox/Simethicone (Aluminum/Magnesium Susp 30 Ml Udc) 30 ml PO Q4H PRN PRN Reason: GI Upset Stop: 04/18/21 14:08 Last Admin: 03/20/21 19:41 Dose: 30 ml Documented by: Bismuth Subsalicylate (Bismuth Subsalicylate Liqd 236 Ml) 15 ml PO PRN PRN PRN Reason: Loose Stool Stop: 04/18/21 14:08 Cyanocobalamin (Cyanocobalamin 500 Mcg Tablet (Vitamin B-12)) 1,000 mcg PO DAILY JACLYN Stop: 04/19/21 08:59 Last Admin: 04/11/21 07:36 Dose: 1,000 mcg Documented by: Famotidine (Famotidine 20 Mg Tab) 20 mg PO DAILY JACLYN Stop: 04/19/21 08:59 Last Admin: 04/11/21 07:36 Dose: 20 mg Documented by: Hydroxyzine HCl (Hydroxyzine Hcl 25 Mg Tab) 50 mg PO HSZ PRN PRN Reason: Insomnia Stop: 04/18/21 14:08 Last Admin: 03/27/21 20:50 Dose: 50 mg Documented by: Hydroxyzine HCl (Hydroxyzine Hcl 25 Mg Tab) 25 mg PO Q4H PRN PRN Reason: Anxiety Stop: 04/18/21 14:08 Last Admin: 04/07/21 18:53 Dose: 25 mg Documented by: Loratadine (Loratadine 10 Mg Tab) 10 mg PO DAILY JACLYN Stop: 04/19/21 08:59 Last Admin: 04/11/21 07:36 Dose: 10 mg Documented by: Lorazepam (Lorazepam 1 Mg Tab) 1 mg PO Q4H PRN PRN Reason: Anxiety/Agitation Stop: 04/29/21 09:35 Last Admin: 04/08/21 13:24 Dose: 1 mg Documented by: Lorazepam (Lorazepam 1 Mg Tab) 1 mg PO BIDM [facility] Stop: 04/29/21 17:44 Last Admin: 04/11/21 07:37 Dose: 1 mg Documented by: Magnesium Hydroxide (Magnesium Hydroxide Susp 30 Ml Udc) 30 ml PO DAILY PRN PRN Reason: Constipation Stop: 04/18/21 14:08 Olanzapine (Olanzapine 10 Mg/2.1 Ml Sdv) 5 mg IM Q6H PRN PRN Reason: Agitation Stop: 04/29/21 09:33 Last Admin: 03/30/21 09:40 Dose: 5 mg Documented by: Propranolol HCl (Propranolol Hcl 10 Mg Tab) 10 mg PO BID [facility] Stop: 04/22/21 17:49 Last Admin: 04/11/21 07:37 Dose: 10 mg Documented by: Sodium Chloride (Sodium Chloride 0.65% Na Soln 45 Ml ([place])) 1 - 2 sprays NA PRN PRN PRN Reason: Nasal Dryness/Congestion Stop: 04/18/21 14:08 Tamsulosin HCl (Tamsulosin Hcl 0.4 Mg Cap) 0.4 mg PO TODAY@1930 [facility] Stop: 04/27/21 19:29 Last Admin: 04/10/21 19:07 Dose: 0.4 mg Documented by: Thiamine HCl (Thiamine Hcl 100 Mg Tab) 100 mg PO QAM JACLYN Stop: 04/19/21 08:59 Last Admin: 04/11/21 07:37 Dose: 100 mg Documented by: Mental Health & Subst Abuse Tx Psychiatrist Name of Psychiatrist: Patricia Gautam Psychiatrist's Date of Appointment with Psychiatrist: 04/14/21 Time of Appointment with Psychiatrist: 2:25 p.m. Psychiatric Appointment Comment: [id number] [place] [address] Therapist Name of Therapist: . Therapist's Phone Number: . Therapy Appointment Comment: . Admin Secretary Name of Admin Secretary: [employer] [facility] Sindhu/Maritza Phone Number for Admin Secretary: [phone] Date of Appointment with Admin Secretary: 04/13/21 Time of Appointment with Admin Secretary: Maritza will stop in to see you Case Management Appointment Comment: Martiza will see you at [facility] on Monday afternoon for a check-in Post Discharge Appointments Primary Care Physician Name Of Family Doctor: CARITO Navarro PA-C Primary Care Date of Appointment with PCP: 04/16/21 Time of Appointment with PCP: 10:30 a.m. Provider Appointment Comment: [address] [facility], [address], [place] Contact Information Discharge Discharge Address: [facility]: [address] [place], [place] [address]fidencio Ibrahim, [place] [address]
[2021-04-11] MEDS: TAMSULOSIN HCL 0.4 MG CAP PO SCH (19:27)
[2021-04-12] MEDS: CYANOCOBALAMIN 500 MCG TABLET (VITAMIN B-12) PO SCH (08:47)
[2021-04-12] MEDS: FAMOTIDINE 20 MG TAB PO SCH (08:47)
[2021-04-12] MEDS: LORATADINE 10 MG TAB PO SCH (08:47)
[2021-04-12] MEDS: THIAMINE HCL 100 MG TAB PO SCH (08:48)
[2021-04-12] MEDS: LORazepam 1 MG TAB PO SCH (08:48)
[2021-04-12] MEDS: PROPRANOLOL HCL 10 MG TAB PO SCH (08:48)
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
== END 2021-04-12 10:25 | disposition home or self-care (01) | DRG 885 ==
LOC: SUATTDRO 14:58 → 3S 14:58